=== PATIENT | male | born 1960 | race Caucasian/White ===

== ENCOUNTER → 2018-07-14 09:30 | Outpatient (CLI) | payer MEDICARE, SELFPAY | PROVIDERS: PCP Family Medicine; Visit Provider Nurse Practitioner Gerontology | DX: R33.9 Retention of urine, unspecified (principal); R35.0 Frequency of micturition | CPT/HCPCS: 51702; 99214 ==

== ENCOUNTER → 2018-07-14 17:08 | Outpatient (REF) | payer MEDICARE, SELFPAY | LOC: LBN 17:08 | PROVIDERS: PCP Family Medicine; Visit Provider Nurse Practitioner Gerontology | DX: R35.0 Frequency of micturition (principal) | CPT/HCPCS: 87086 ==

== ENCOUNTER → 2018-07-17 08:30 | Outpatient (CLI) | payer MEDICARE, SELFPAY | PROVIDERS: PCP Family Medicine; Visit Provider Nurse Practitioner Gerontology | DX: N40.1 Benign prostatic hyperplasia with lower urinary tract symptoms (principal); R33.8 Other retention of urine | CPT/HCPCS: 99213 ==

== ENCOUNTER → 2018-07-18 15:00 | Outpatient (CLI) | payer MEDICARE, SELFPAY | PROVIDERS: PCP Family Medicine; Visit Provider Urology | DX: R33.8 Other retention of urine (principal); R31.9 Hematuria, unspecified | CPT/HCPCS: 99211 ==

== ENCOUNTER → 2018-07-22 14:00 | Outpatient (CLI) | payer MEDICARE, SELFPAY | PROVIDERS: PCP Family Medicine; Visit Provider Nurse Practitioner Gerontology | DX: N40.0 Benign prostatic hyperplasia without lower urinary tract symptoms (principal) | CPT/HCPCS: 99214 ==

== ENCOUNTER 2018-08-06 11:10 | Outpatient (CLI) | payer MEDICARE, SELFPAY ==
[2018-08-07 10:20] LABS: PSA, Screening 333.9 ng/ml (0-3.5)
== END 2018-08-06 11:30 ==
PROVIDERS: PCP Family Medicine; Visit Provider Nurse Practitioner Gerontology
DX: I10 Essential (primary) hypertension (principal); Z12.5 Encounter for screening for malignant neoplasm of prostate; R31.9 Hematuria, unspecified
CPT/HCPCS: 84153

== ENCOUNTER → 2018-08-12 12:53 | Outpatient (BNVA) | payer MEDICARE, SELFPAY | PROVIDERS: PCP Family Medicine; Visit Provider Nurse Practitioner Gerontology | DX: R97.20 Elevated prostate specific antigen [PSA] (principal); R33.9 Retention of urine, unspecified | CPT/HCPCS: 81003; 99215 ==

== ENCOUNTER 2018-08-26 00:53 | Outpatient (CLI) | payer MEDICARE, SELFPAY ==
--- NOTE | 2018-08-26 06:53 | DI.US_ITS ---
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 Alvarez during the performance of a transrectal ultrasound-guided prostate biopsy. Please refer to the procedure report for complete details.
--- NOTE | 2018-08-26 10:30 | PROST_PTH ---
PATIENT: Hernandez Chris LOC: [facility] U#:[id number] AGE/SX: 58/M ROOM: RE08/26/[address]: Jr Alvarez MD : 1960 BED: DIS: 08/26/2018 SPEC #: [id number] RECD: 08/26/18 13:03 STATUS: VENECIA RE #: [id number] SYED: 08/26/18 10:[address]: Jr Alvarez DEPT: Surgical Specimen RECD BY: Selena Velazquez ENTERED: 08/26/18 13:04 SP TYPE: PROST OTHR DR: Manny Jack Tissues: 1 - PROSTATE NEEDLE BIOPSY 2 - PROSTATE NEEDLE BIOPSY 3 - PROSTATE NEEDLE BIOPSY 4 - PROSTATE NEEDLE BIOPSY 5 - PROSTATE NEEDLE BIOPSY 6 - PROSTATE NEEDLE BIOPSY 7 - PROSTATE NEEDLE BIOPSY 8 - PROSTATE NEEDLE BIOPSY 9 - PROSTATE NEEDLE BIOPSY 10 - PROSTATE NEEDLE BIOPSY 11 - PROSTATE NEEDLE BIOPSY 12 - PROSTATE NEEDLE BIOPSY Procedures: GROSS AND MICRO LEVEL 4 Comments: [id number]
--- NOTE | 2018-08-26 11:35 | ROE_ITS ---
DATE OF PROCEDURE: August 26, 2018 PRE-PROCEDURE DIAGNOSIS: Elevated PSA. POST-PROCEDURE DIAGNOSIS: Same with pathology pending. PROCEDURE: Transrectal ultrasound of the prostate with ultrasound-guided biopsies. SURGEON: Jr Alvarez M.D. ANESTHESIA: Local. COMPLICATIONS: None. ESTIMATED BLOOD LOSS: Minimal. HISTORY: This is a 58-year-old gentleman who has been identified as having a markedly elevated PSA o f over 300 ng/mL. In addition, he has firm area in the prostate. He presents for ultrasound-guided biopsy. PROCEDURE: The patient was given a pre-procedure mechanical and antibiotic bowel prep. He was then brought to the radiology suite on 08/26/18. He was placed in the lateral position. Transrectal imaging of the prostate was performed. His prost ate volume was calculated at 47 cc's. There was no specific hypoechoic area identified in the peripheral zone, however there was loss of ar chitecture between the peripheral and transition zone, especially toward the left apex. Multiple enmanuel cifications were seen scattered throughout the transition zone. A periprostatic nerve block was performed using 1% Xylocaine. A total of twelve laterally-directed b iopsies were taken and each was sent to pathology for permanent section. He tolerated the procedure well with no complications.
== END 2018-08-26 01:13 ==
PROVIDERS: PCP Family Medicine; Visit Provider Urology
DX: C61 Malignant neoplasm of prostate (principal); R97.20 Elevated prostate specific antigen [PSA]
CPT/HCPCS: 55700; 76942; 88305

== ENCOUNTER → 2018-08-26 11:25 | Outpatient (BNVA) | payer MEDICARE, SELFPAY | PROVIDERS: PCP Family Medicine; Visit Provider Urology | DX: R69 Illness, unspecified (principal) ==

== ENCOUNTER → 2018-09-08 14:52 | Outpatient (BNVA) | payer MEDICARE, SELFPAY | PROVIDERS: PCP Family Medicine; Visit Provider Urology | DX: C61 Malignant neoplasm of prostate (principal) | CPT/HCPCS: 99214 ==

== ENCOUNTER 2018-09-16 01:20 | Outpatient (CLI) | payer MEDICARE, SELFPAY ==
--- NOTE | 2018-09-16 08:57 | DI.CT_ITS ---
SYMPTOM/DIAGNOSIS: PROSTATE CA, ? METS ABDOMEN AND PELVIC CT: The study was carried out according to the usual protocol with an intravenous administration of 87 cc's of Omnipaque 350 and oral ingestion of dilute barium. The lower thorax appears unremarkable. The liver, gallbladder, pancreas and spleen are unremarkable. A bilateral extrarenal pelvis is demonstrated. A solitary non obstructing calculus is noted in the right kidney. There is moderate left hydronephrosis and hydroureter down to the level of the bladder. There is no evidence of right hydronephrosis and the right ureter appears intact. Small bilateral adrenal masses likely represent adenomata. The prostate is grossly enlarged and is nodular and bladder wall thickening is noted inferiorly raising the possibility of tumor extension into the posterior inferior bladder wall. There is no definite evidence of pelvic, intra- abdominal or retroperitoneal adenopathy. There is no evidence of bowel obstruction. The appendix is normal. There is no evidence of localized bowel wall thickening. There is no evidence of free air or free fluid in the intraperitoneal space. Degenerative changes are noted throughout the lower dorsal and lumbosacral spine. There is nothing to suggest bony metastasis. There are atherosclerotic changes involving the aorta without evidence of an aneurysm. SUMMARY: Non obstruction right nephrolithiasis is demonstrated. There is a bilateral extrarenal pelvis and moderate left hydronephrosis and left hydroureter is demonstrated down to the level of the bladder. There is no evidence of left nephro or ureterolithiasis. The prostate is enlarged and is nodular and there is thickening and nodularity involving the bladder floor raising the possibility of tumor involvement. There is no evidence of lymphadenopathy. Incidental note is made of small bilateral adrenal masses consistent with adenomata. The findings today to be correlated with cystoscopy.
--- NOTE | 2018-09-16 08:57 | DI.NM_ITS ---
SYMPTOMS/DIAGNOSIS: PROSTATE CA, ? METS BONE SCAN: Intravenous administration of 24.6 millicuries of Technetium 99 MDP was utilized for this examination. Small faint regions of increased photon density involving the lower dorsal and lumbar spine would be consistent with degenerative changes noted on the patient's recent CT examination. A very small focal area of mildly increased photon density involving the posterior portion of the right sixth rib is demonstrated and may be on the basis of old trauma. There is symmetrical activity over the renal beds. The radiopharmaceutical is noted in a dilated bladder and the patient was unable to void at the time of the examination. SUMMARY: No definite evidence of bony metastases. Note is made of bladder outlet obstruction. Please see the above report.
[2018-09-16 09:48] LABS: CREATININE 1.13 mg/dL (0.70-1.30)
[2018-09-16] MEDS: Breeza Beverage 473 ML BTL PO ×2 (10:09→10:10)
[2018-09-16] MEDS: Omnipaque 350 MG/ML 50 ML BTL IJ (10:10)
[2018-09-16] MEDS: Omnipaque 350 MG/ML 100 ML BTL IJ (10:58)
== END 2018-09-16 01:40 ==
PROVIDERS: PCP Family Medicine; Visit Provider Urology
DX: C61 Malignant neoplasm of prostate (principal); N20.0 Calculus of kidney; N13.30 Unspecified hydronephrosis; E27.9 Disorder of adrenal gland, unspecified
CPT/HCPCS: 36415; 78306; 99215; 74177; 82565; J3490; Q9967

== ENCOUNTER 2018-12-02 00:56 | Emergency (ER) | payer OTHER, SELFPAY ==
--- NOTE | 2018-12-02 00:05 | DI.CT_ITS ---
SYMPTOM/DIAGNOSIS: RT SIDED WEAKNESS NONCONTRAST HEAD CT: Comparison is made with 04/05/14. Left basal ganglia and left guillen radiata lacunar infarcts are again identified. No acute infarct, hemorrhage or mass is seen. The ventricles are normal in size. There is no evidence of skull fracture or sinus opacification. Mild to moderate atrophy is again noted. IMPRESSION: Old left lacunar infarcts. No acute abnormality.
[2018-12-02 00:56] VITALS: BP 168/89; PULSE 95; RESP 18; TEMP 36.9; O2SAT 98
--- NOTE | 2018-12-02 00:57 | ED.GENADUL_ITS ---
Discharge Plan Disposition Patient Disposition: HOME Condition: Stable Discharge Details Chief Complaint: CVA/TIA Clinical Impression: Spasticity Reason For Visit: MICHAEL Primary Care Provider: Manny Jack ED Provider: Ramos Schafer Home Meds and New Rx's Prescriptions: Continued levofloxacin [Levaquin] 500 mg tablet 500 mg PO DAILY Qty: 3 RF: 0 finasteride 5 mg tablet 5 mg PO DAILY Qty: 30 RF: 3 miscellaneous medical supply [Tablet Cutter] 1 EACH misc 1 ea Miscellaneous DAILY Qty: 1 RF: 0 atorvastatin 10 MG tablet 10 mg PO DAILY RF: 0 baclofen 10 MG tablet 10 mg PO TID RF: 0 lisinopril 40 MG tablet 40 mg PO DAILY RF: 0 tamsulosin 0.4 MG capsule 0.4 mg PO DAILY Qty: 90 RF: 3 amlodipine 10 MG tablet 10 mg PO DAILY RF: 0 clopidogrel [Plavix] 75 MG tablet 75 mg PO DAILY Qty: 90 RF: 0 Discharge Instructions Additional Instructions: Take your medications as prescribed. That will prevent you from having the spasticity that you experienced tonight It is also important that you eat and drink, it is not true that you can starve your cancer and not eating will only harm you follow up with your primary care provider within a week If you have new weakness or new symptoms such as vision changes, chest pain or difficulty breathing return to the emergency department Referrals: [facility] [Provider Group] Medical Decision Making 58 yo male who had a prior cva 5 years ago and has had recovery per him with no residual deficits who comes in with chief complaint of not being able to walk since 4pm yesterday due to right leg weakness. He denies chest pain, headache, fevers, chills. He is noted to have right leg drift on exam that hits the bed (2 for NIH), and decreased sensation of the right leg (1) for a total NIH of 3. Suspect acute cva but is outside the time period for lytics at this time. Will obtain CT and cta and lab work and monitor after reviewing the chart from recent provider's it seems as though the patient has had weakness in the right leg since his initial cva. I spoke with his brother while the pt is in radiology and states that the patient normally is dragging his leg but had some pain in his groin that caused him to go slower ton ight, no significant change from his baseline. The pt was recently dx'd with chemotherpay and the brother states the pt is researching things on line and hasn't been eating much because he feels he can starve the cancer and be cured of it. Will discuss this further with the pt when he returns from CT Pt's ct showed no acute findings. CTA was cancelled due to inability to get an IV and after I had a lengthy discussion with the pt. He now states he is having pain in his right upper leg that he gets when he has spasticity and denies any new weakness and normally has to drag his leg when walking slightly which when I ambulate him now he walks with a mild drag of the right leg. He states this is his baseline but he is having pain in the right upper thigh, no rashes and no falls, does feel to have muscle spasm on exam. He states he hasn't been taking his meds including baclofen for over a week because he read online that meds can cause cancer and he hasn't been eating much. I had lengthy discussion about how he needs to take his meds as prescribed and eat normally as this won't affect his cancer. He agrees he is currently at his baseline and that he never had any changes in his chronic right leg weakness and gait. I am going to order him his blood pressure med and baclofen that he is supposed to take to prevent spasticity. He will f/u with his pcp and return if he has any new meds. Him and his brother state that he is at his baseline in terms of weakness and the only thing that is different is the spasticity he is experiencing in the leg. Differential Diagnosis cva, tia, electrolyte abnormality Imaging Data Radiologic Study: Attestation: I personally reviewed and interpreted this imaging study as follows: Imaging: CT Scan Radiologist's impression: No evidence for acute transcortical infarct, acute intracranial hemorrhage, or mass effect. [place] Stroke Program Early CT Score (ASPECTS) = 10 HPI General Mode of arrival: EMS . Date/Time Provider Initiated Documentation: 12/02/18 00:58 . Limitations to Documentation: no limitations . Information obtained by: patient . History of Present Illness 58 year old M presents to the emergency department with the chief complaint of right leg weakness, and is localized to the right and lower extremity. Patient reports no radiation. Patient started experiencing this hour(s) (6) and it has been constant. No relieving factors improve symptom(s), No exacerbating factors reported . Patient notes no other symptoms.. Patient did receive the following treatments prior to arrival, none Related Data Home Medications Medication Instructions Recorded Confirmed amlodipine 10 mg PO DAILY 04/05/14 08/12/18 clopidogrel [Plavix] 75 mg PO DAILY #90 tab 04/12/14 08/12/18 miscellaneous medical supply #1 ea 02/22/15 [Tablet Cutter] atorvastatin 10 mg PO DAILY tab-cap 12/31/16 08/12/18 baclofen 10 mg PO TID tab-cap 02/07/18 08/12/18 lisinopril 40 mg PO DAILY tab-cap 02/07/18 08/12/18 tamsulosin 0.4 mg PO DAILY #90 tab-cap 07/17/18 levofloxacin 500 mg tablet 500 mg PO DAILY #3 tab 08/12/18 08/12/18 finasteride 5 mg tablet 5 mg PO DAILY #30 tab 09/16/18 09/16/18 Previous Rx's Medication Instructions Recorded clopidogrel [Plavix] 75 mg PO DAILY #90 tab 04/12/14 tamsulosin 0.4 mg PO DAILY #90 tab-cap 07/17/18 levofloxacin 500 mg tablet 500 mg PO DAILY #3 tab 08/12/18 finasteride 5 mg tablet 5 mg PO DAILY #30 tab 09/16/18 Allergies Allergy/AdvReac Type Severity Reaction Status Date / Time latex Allergy Itching Verified 08/12/18 13:04 Penicillins Allergy Verified 08/12/18 13:04 venlafaxine HCl Allergy Verified 08/12/18 13:04 [From Effexor] Review of Systems Review of Systems All systems reviewed & are unremarkable except as noted in HPI and below Constitutional Denies chills and Denies fever(s) ENT Denies change in voice Cardiovascular Denies chest pain and Denies dyspnea Respiratory Denies dyspnea Gastrointestinal Denies abdominal pain, Denies nausea and Denies vomiting Genitourinary Denies dysuria Psychiatric Denies depression Endocrine Denies heat intolerance [facility] Surgical History Colonoscopy - IV Sedation (10/07/15) Social History Smoking/Tobacco Use Status: Never Exam Const General: no acute distress Orientation: alert HENMT Head: normal to inspection Ears: external ears normal General nose exam: external nose normal Mouth: moist mucous membranes Eyes General: appearance normal, both eyes and all related structures Neck Neck: normal visual inspection Resp Effort & Inspection: normal respiratory effort and able to speak in complete sentences Cardio Rate: regular rate Skin General skin exam: no rashes or lesions noted Neuro General: alert and oriented x3 Extrem General: normal to inspection Psych Mental Status: mental status grossly normal
--- NOTE | 2018-12-02 01:17 | DI.VRAD_ITS ---
EXAM: CT Head Without Contrast EXAM DATE/TIME: 12/02/2018 12:48 AM CLINICAL HISTORY: 58 years old, male; Signs and symptoms; Walking, difficulty and weakness, extremity; Right; Patient HX: Right sided weakness, prior stroke left side 2013 TECHNIQUE: Axial computed tomography images of the head/brain without contrast. All CT scans at this facility use at least one of these dose optimization techniques: automated exposure control; mA and/or kV adjustment per patient size (includes targeted exams where dose is matched to clinical indication); or iterative reconstruction. Coronal and sagittal reformatted images were created and reviewed. STROKE PROTOCOL was implemented. COMPARISON: CT HEAD WITHOUT CONTRAST 04/05/2014 9:35 AM FINDINGS: Brain: No evidence for acute transcortical infarct. Chronic lacunar infarcts involving the right thalamus and left guillen radiata. No mass effect or midline shift. No extra-axial collection. No acute intracranial hemorrhage. Basal cisterns are patent. Ventricles: Cavum septum pellucidum and vergae. Bones/joints: Normal. No acute fracture. Sinuses: Normal as visualized. No acute sinusitis. Mastoid air cells: Tympanomastoid cavities are clear. Soft tissues: Normal. IMPRESSION: No evidence for acute transcortical infarct, acute intracranial hemorrhage, or mass effect. [place] Stroke Program Early CT Score (ASPECTS) = 10 Dictated and Authenticated by: Fred Auguste MD. Ordering:GERMANIA Beasley MD
[2018-12-02] MEDS: Lisinopril 20 MG TAB 40 MG PO (01:36)
[2018-12-02] MEDS: Baclofen 10 MG TAB PO (01:36)
--- NOTE | 2018-12-08 11:04 | PDOC.ERCMPRO ---
Care Management Progress Note 12/08-Dr. Schafer requested PCP (Marcie) f/u within one week to discuss medications. [facility] faxed back that patient has an appt on 12/08 at 2PM.
== END 2018-12-02 01:56 | disposition home or self-care (01) ==
LOC: ER 02:03
PROVIDERS: Emergency Provider Emergency Medicine; PCP Family Medicine
DX: R25.2 Cramp and spasm (principal); Z86.73 Personal history of transient ischemic attack (TIA), and cerebral infarction without residual deficits; I10 Essential (primary) hypertension
CPT/HCPCS: 80053; 99284; 70450; 83735; 84484; 85025; 85610; 85730

== ENCOUNTER 2019-05-15 11:25 | Outpatient (REF) | payer OTHER, SELFPAY ==
[2019-05-15 20:05] LABS: ALT 33 U/L (12-78); AST 22 U/L (15-37); Albumin 4.2 g/dL (3.4-5.0); Alkaline Phosphatase 171 U/L (46-116); Anion Gap 10.4 mmol/L (3-11); BUN 15 mg/dL (7-18); Bilirubin, Total 0.9 mg/dL (0.2-1.0); CO2 26.6 mmol/L (21.0-32.0); Calcium 9.4 mg/dL (8.5-10.1); Calculated LDL 87; Chloride 106 mmol/L (98-107); Cholesterol 160 mg/dL (50-200); Glucose 120 mg/dL (70-100); HDL Cholesterol 41 mg/dL (40-60); Sodium 143 mmol/L (136-145); Triglyceride 164 mg/dL (30-150)
== END 2019-05-15 11:45 ==
LOC: NCHCN 11:25
PROVIDERS: PCP Family Medicine; Visit Provider Family Medicine
DX: I10 Essential (primary) hypertension (principal); I63.9 Cerebral infarction, unspecified
CPT/HCPCS: 80053; 80061; 83721

== ENCOUNTER 2019-09-07 11:38 | Outpatient (CLI) | payer OTHER, SELFPAY ==
[2019-09-07 12:29] LABS: HCT 39.1 % (40.0-50.0); HGB 13.8 g/dL (13.5-17.5); Mean Corp. HGB Concentration 35.3 g/dL (32.0-36.0); Mean Corpuscular Hemoglobin 31.7 pg (27.0-33.0); Mean Corpuscular Volume 89.7 fL (80-95); Mean Platelet Volume 10.1 fL (8.0-11.0); Platelet Count 162 x1000/uL (130-400); RBC 4.36 m/cumm (4.50-6.00); RBC Distribution Width 12.7 % (11.8-14.1); White Blood Cell Count 3.04 k/cumm (4.4-10.8)
[2019-09-07 13:48] LABS: ALT 22 U/L (16-63); AST 18 U/L (15-37); Albumin 4.4 g/dL (3.4-5.0); Alkaline Phosphatase 143 U/L (46-116); Anion Gap 9.8 mmol/L (3-11); BUN 15 mg/dL (7-18); CO2 28.2 mmol/L (21.0-32.0); CREATININE 1.05 mg/dL (0.70-1.30); Calcium 9.4 mg/dL (8.5-10.1); Chloride 104 mmol/L (98-107); Glucose 128 mg/dL (70-100); Sodium 142 mmol/L (136-145); Total Protein 7.4 g/dL (6.4-8.2)
[2019-09-08 09:54] LABS: PSA, Diagnostic 0.1 ng/ml (0-3.5)
[2019-09-08 10:30] LABS: Hepatitis C Ab w Rflx HCV PCR Negative (NEGAT)
== END 2019-09-07 11:58 ==
PROVIDERS: PCP Family Medicine; Visit Provider Family Medicine
DX: R53.83 Other fatigue (principal); C61 Malignant neoplasm of prostate; Z11.59 Encounter for screening for other viral diseases
CPT/HCPCS: 36415; 80053; 85027; 86803; 84153

== ENCOUNTER 2019-10-08 02:10 | Outpatient (CLI) | payer OTHER, SELFPAY ==
[2019-10-08] MEDS: Gadoterate meglumine 20 ML VIAL 12 ML IVP (09:50)
--- NOTE | 2019-10-08 10:05 | DI.MRI_ITS ---
EXAM: MR BRAIN WO/W CLINICAL HISTORY: HEADACHE.LT SIDED PRESSURE, H/O PROSTATE CA TECHNIQUE: Multiplanar multisequence MRI was performed according to the usual protocol. COMPARISON: No exams were available for comparison FINDINGS: There is mild generalized cerebral atrophy. There is apparent focal cortical encephalomalacia in the left parietal region. There are apparent tiny old bilateral cerebellar hemisphere infarcts and ther e is a presumed old left basal ganglia/guillen radiata focus of infarction which is thin and elongated . No evidence of enhancement. Diffusion-weighted imaging is within normal limits with no evidence o f acute or subacute infarction. Susceptibility weighted imaging shows no evidence of hemorrhage. No mass lesion seen. The orbital and temporal bone structures appear intact as does the pituitary. The re is normal flow void in the [place] vasculature. IMPRESSION: No evidence of acute process. Tiny old bilateral cerebellar hemisphere infarcts and tiny old left basal ganglia/guillen radiata infa rcts.
== END 2019-10-08 02:30 ==
PROVIDERS: PCP Family Medicine; Visit Provider Family Medicine
DX: R51 Headache (principal); Z85.46 Personal history of malignant neoplasm of prostate; G31.89 Other specified degenerative diseases of nervous system; G93.89 Other specified disorders of brain; I63.9 Cerebral infarction, unspecified
CPT/HCPCS: 70553

== ENCOUNTER 2020-06-11 13:37 | Emergency (ER) | payer OTHER, SELFPAY ==
[2020-06-11] VITALS (23 sets, daily range): BP systolic 127–149; BP diastolic 67–88; PULSE 56–88; RESP 13–23; TEMP 36.5; O2SAT 94–100
--- NOTE | 2020-06-11 13:45 | RT.EKG_ITS ---
APPROVED REPORT Exam: Resting ECG Patient Location: E HR:70 bpm ECG Measurements Heart Rate 70 AXIS IN 146 P 44 QRSd 88 QRS -10 QT 411 T 25 QTc 444 <Conclusion> Sinus arrhythmia...V-rate 59- 80, variation>10% EKG 13: 55 Sinus rhythm, rate 70, intervals normal, no evidence of STEMI, or other abnormalities
--- NOTE | 2020-06-11 14:00 | DI.CT_ITS ---
EXAM: CT HEAD WO CLINICAL HISTORY: weakness, fatigue, hx of stroke. TECHNIQUE: Imaging Protocol: Axial computed tomography images with coronal and sagittal reformatted images were created and reviewed COMPARISON: CT CT HEAD FOR STROKE PROTOCOL from 12/02/2018 FINDINGS: Ventricles and Extra axial spaces: There is again seen mild prominence of the ventricles and sulci co nsistent with cerebral atrophy. Hemorrhage: None. Cerebral parenchyma: No acute territorial infarct. Areas of decreased attenuation are seen in the wh ite matter most consistent with microvascular ischemic disease. An old left basal gangliar infarct i s again noted. Note is made of a cavum septum pellucidum. Midline shift: None. Brainstem/Cerebellum: Normal. Calvarium: Normal. Visualized Paranasal sinuses/Mastoids: Clear. Soft Tissues: Unremarkable. IMPRESSION: No acute intracranial process. RADIATION DOSE DELIVERED: Total DLP DATA REPOSITORY: All CT scans at this facility are submitted to the National Radiology Data Registry (NRDR) Dose Index Registry (DIR) with the [employer] (A[employer]). RADIATION OPTIMIZATION: All CT scans at this facility use at least one of these dose optimization te chniques: automated exposure control; mA and/or kV adjustment per patient size (includes targeted exa ms where dose is matched to clinical indication); or iterative reconstruction.
--- NOTE | 2020-06-11 14:01 | DI.RAD_ITS ---
EXAM: XR CHEST 2V PA LATERAL CLINICAL HISTORY: fatigue, SOB TECHNIQUE: 2D digital imaging was performed. COMPARISON: No exams were available for comparison FINDINGS: MEDIASTINUM: Normal. HEART: Normal. PULMONARY VASCULATURE: Normal. LUNGS: Clear. PLEURAL SPACE: No pleural effusion or pneumothorax. BONE:Degenerative changes are seen in the spine. OTHER FINDINGS:Normal. IMPRESSION: No acute pulmonary findings. DATA REPOSITORY: RADIATION DOSE DELIVERED:
--- NOTE | 2020-06-11 14:03 | ED.GENADUL_ITS ---
Discharge Plan Disposition Patient Disposition: HOME Condition: Good Discharge Details Chief Complaint: GenMedical Clinical Impression: Dehydration, Weakness Primary Care Provider: Manny Jack ED Provider: Dani Casillas Home Meds and New Rx's Prescriptions: Continued (DME) miscellaneous medical supply [Tablet Cutter] 1 EACH misc 1 ea Miscellaneous DAILY Qty: 1 RF: 0 atorvastatin 10 MG tablet 10 mg PO DAILY RF: 0 baclofen 10 MG tablet 10 mg PO TID RF: 0 lisinopril 40 MG tablet 40 mg PO DAILY RF: 0 tamsulosin 0.4 MG capsule 0.4 mg PO DAILY Qty: 90 RF: 3 amlodipine 10 MG tablet 10 mg PO DAILY RF: 0 clopidogrel [Plavix] 75 MG tablet 75 mg PO DAILY Qty: 90 RF: 0 prednisone 5 mg tablet 5 mg PO DAILY RF: 0 abiraterone 250 mg tablet 1,000 mg PO DAILY RF: 0 cyanocobalamin (vitamin B-12) [Vitamin B-12] 1,000 mcg Tablet 1,000 mcg PO DAILY RF: 0 ascorbic acid (vitamin C) [Vitamin C] 500 mg Tablet 500 mg PO DAILY RF: 0 cholecalciferol (vitamin D3) [Vitamin D3] 25 mcg (1,000 unit) Tablet,Chewable 25 mcg PO DAILY RF: 0 Discharge Instructions Instructions: Dehydration (ED), Weakness (ED) Additional Instructions: At this time your work-up shows no signs of concerning life-threatening abnormality. I do feel that there is notable dehydration that is contributing to your symptoms. Please make sure to drink 8 to 10 cups of water every day. Please follow-up closely with your oncologist and discuss resuming or stopping her medications. As always do your best to eat healthy and exercise as tolerable. If you notice any worsening of your symptoms, or any new symptoms such as vomiting, diarrhea, fever, chills, shortness of breath, chest pain, numbness, weakness, or fainting , please return immediately to the emergency department for reevaluation. Please follow up with your primary care provider as soon as possible for reassessment and reevaluation. As always, it was a pleasure participating in your medical care today. 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 Patient states that for the last few days he has felt notably weak, he has had some shaking in his hands bilaterally. He denies any recent falls or traumas. He denies any fever, chills, cough, shortness of breath, chest pain, vomiting, diarrhea, hematochezia melena or acholic stool. Of note as of late he states that he has been stopping some of his medication secondary to videos he states that he has been watching on YouTube that have caused some concern as to what he has been taking. He states though that he is still taking his Plavix, but did recently stop taking his atorvastatin and stopped taking his calcium supplements a few months ago. Patient has no other complaints at this time. He denies any urinary complaints. No other modifying factors. Physical exam is notably unremarkable. He does have dry mucous membranes, the patient's neurologic exam seems to be at his baseline though with no acute focal neurologic deficits. No abnormal lung sounds or other abnormalities on exam. Differential includes dehydration, potential UTI, her less likely cardiac etiology. Will perform broad work-up to evaluate for potential etiologies in this high risk cancer patient. 6 PM Patient's laboratory work-up is returned notably unremarkable, d-dimer and troponin are normal. No white count bandemia or anemia. Electrolytes normal. Patient does have an elevated BUN of 23 which is greater than a 2-1 ratio for BUN/creatinine. TSH normal. Urinalysis does show some urine ketones. Signs and symptoms appear clinically consistent with mild dehydration. Chest x-ray negative for acute process, CT scan of the head negative for acute process. After rehydration with 1 L of normal saline patient is feeling much better. I did have a long discussion with him regarding importance of keeping well- hydrated. Also of note the patient did bring up some concerns he had with his medications in general, asking whether or not he should stop or start his of the various medications. He also had multiple very reasonable questions about diet in regards to management of his medical problems as an alternative to medications. We did have a long discussion about all this, but I also did encourage him to seek out his PCP, and his oncologist to discuss the potential needs or options for his regular home medications. I have extensively reviewed the treatment plan and discharge instructions with the patient and their family. I have addressed all patient concerns at this time. The patient and family was made aware of what symptoms to monitor for that would warrant a return to the emergency department. Discussed the plan with the patient and family, they demonstrate verbal understanding and agreement with our assessment and plan at this time. EKG 13: 55 Sinus rhythm, rate 70, intervals normal, no evidence of STEMI, or other abnormalities FINDINGS: Brain: There is no acute intracranial hemorrhage, mass effect or midline shift. No large acute territorial infarct identified. There are patchy regions of hypodensity in the periventricular and subcortical white matter, likely on the basis of chronic microvascular ischemic disease. A small remote left basal ganglia infarct is stable in appearance. Ventricles: The ventricles and sulci are prominent in size, which is likely related to global cerebral volume loss. There is a cavum septum pellucidum. Bones/joints: Unremarkable. No acute fracture. Sinuses: Visualized sinuses are unremarkable. No fluid levels. Mastoid air cells: Visualized mastoid air cells are well aerated. Soft tissues: Soft tissue in the right external auditory canal again noted, likely cerumen. IMPRESSION: No acute intracranial hemorrhage, mass effect or midline shift. FINDINGS: Lungs: No consolidation. Pleural space: Unremarkable. No pleural effusion. No pneumothorax. Heart/Mediastinum: Unremarkable. No cardiomegaly. Bones/joints: Unremarkable. IMPRESSION: No acute findings. Of note, mild viral pneumonia cannot be excluded and laboratory testing may be performed if clinically indicated. Thank you for allowing us to participate in the care of your patient. Dictated and Authenticated by: Lisa Suarez MD [facility] General Date/Time Provider Initiated Documentation: 06/11/20 13:48 . 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 Patient states that for the last few days he has felt notably weak, he has had some shaking in his hands bilaterally. He denies any recent falls or traumas. He denies any fever, chills, cough, shortness of breath, chest pain, vomiting, diarrhea, hematochezia melena or acholic stool. Of note as of late he states that he has been stopping some of his medication secondary to videos he states that he has been watching on YouTube that have caused some concern as to what he has been taking. He states though that he is still taking his Plavix, but did recently stop taking his atorvastatin and stopped taking his calcium supplements a few months ago. Patient has no other complaints at this time. He denies any urinary complaints. No other modifying factors. Related Data Home Medications Medication Instructions Recorded Confirmed amlodipine 10 mg PO DAILY 04/05/14 06/11/20 clopidogrel [Plavix] 75 mg PO DAILY #90 tab 04/12/14 06/11/20 miscellaneous medical supply #1 ea 02/22/15 [Tablet Cutter] atorvastatin 10 mg PO DAILY tab-cap 12/31/16 08/12/18 baclofen 10 mg PO TID tab-cap 02/07/18 06/11/20 lisinopril 40 mg PO DAILY tab-cap 02/07/18 06/11/20 tamsulosin 0.4 mg PO DAILY #90 tab-cap 07/17/18 06/11/20 abiraterone 1,000 mg PO DAILY 06/11/20 06/11/20 ascorbic acid (vitamin C) [Vitamin 500 mg PO DAILY 06/11/20 06/11/20 C] cholecalciferol (vitamin D3) 25 mcg PO DAILY 06/11/20 06/11/20 [Vitamin D3] cyanocobalamin (vitamin B-12) 1,000 mcg PO DAILY 06/11/20 06/11/20 [Vitamin B-12] prednisone 5 mg PO DAILY 06/11/20 06/11/20 Previous Rx's Medication Instructions Recorded clopidogrel [Plavix] 75 mg PO DAILY #90 tab 04/12/14 tamsulosin 0.4 mg PO DAILY #90 tab-cap 07/17/18 Allergies Allergy/AdvReac Type Severity Reaction Status Date / Time latex Allergy Itching Verified 06/11/20 13:58 Penicillins Allergy Verified 06/11/20 13:58 venlafaxine HCl Allergy Verified 06/11/20 13:58 [From Effexor] General Stated Complaint: GenMedical PAU: 3 Review of Systems All systems reviewed & are unremarkable except as noted in HPI and below PFSH Surgical History Colonoscopy - IV Sedation (10/07/15) DR.TERRY BURGOS Social History Smoking/Tobacco Use Status: Never Alcohol Intake: never Drug use: Never Do you feel safe at home: Yes Do you feel safe in your relationship?: Yes Exam Narrative Exam Narrative: 1.Const: Well-nourished, Well-developed, appearing stated age 2.Eyes: PERRL, no conjunctival injection, and symmetrical lids. 3.ENT: Atraumatic external nose and ears. Notably dry MM. Neck: Symmetric, trachea midline, No thyromegaly. 4.CVS: +S1/S2, No murmurs or gallops. Peripheral pulses 2+ and equal in all extremities. Brisk capillary refill in all extremities. 5.RESP: Unlabored respiratory effort. Clear to auscultation bilaterally. No wheezes rales or rhonchi 6.GI: Soft, Nontender/Nondistended, No hepatosplenomegaly. No guarding or rebound. 7.MSK: Normocephalic/Atraumatic, Extremities w/o deformity or ttp No cyanosis or clubbing, Normal movement of all extremities 8.Skin: Warm, Dry. No rashes or lesions. 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 Sensation grossly intact. No dysdiadochokinesia or dysmetria. The patient's right upper and right lower extremity are somewhat weaker compared to the left however the patient states that this is his normal baseline after stroke. 10.Psych: (AAO) x3. Appropriate mood and affect Course Vital Signs Vital signs: Vital Signs Temperature 36.5 C 06/11/20 13:51 Pulse 88 06/11/20 13:51 Respiratory Rate 06/11/20 13:51 Blood Pressure 145/85 H 06/11/20 13:51 Pulse Oximetry 94 L 06/11/20 13:51 Temperature 36.5 C 06/11/20 13:51 Temperature Source Temporal Artery Scan 06/11/20 13:51 Pulse 88 06/11/20 13:51 Respiratory Rate 06/11/20 13:51 Respiratory Effort Non-Labored 06/11/20 13:56 Blood Pressure 145/85 H 06/11/20 13:51 Blood Pressure Position Sitting 06/11/20 13:51 Pulse Oximetry 94 L 06/11/20 13:51 Oxygen Delivery Method Room Air 06/11/20 13:51 Oxygen Flow Rate 0 06/11/20 13:51 Pain Level 0 06/11/20 13:51
[2020-06-11 14:49] LABS: Bilirubin Negative (Negative); Blood Negative (Negative); Clarity Clear (Clear); Glucose Negative (Negative); Ketones 15 mg/dL (Negative); Leukocyte Esterase Negative (Negative); Nitrite Negative (Negative); Urobilinogen 0.2 EU/dL (Up TO 0.2); pH 5.5 (5-8)
[2020-06-11 14:55] LABS: Abs Immature Grans 0.01 k/cumm (0.0-0.09); Absolute Basophil Count 0.01 k/cumm (0.0-0.2); Absolute Eosinophil Count 0.04 k/cumm (0.0-0.7); Absolute Lymphocyte Count 0.66 k/cumm (1.2-3.4); Absolute Monocyte Count 0.23 k/cumm (0.11-0.7); Absolute Neutrophil Count 3.63 k/cumm (1.2-6.7); Basophils % 0.2; Eosinophils % 0.9; HCT 41.1 % (40.0-50.0); HGB 14.7 g/dL (13.5-17.5); Immature Grans % 0.2 %; Lymphocytes % 14.4; Mean Corp. HGB Concentration 35.8 g/dL (32.0-36.0); Mean Corpuscular Hemoglobin 30.8 pg (27.0-33.0); Mean Platelet Volume 10.2 fL (8.0-11.0); Neutrophils % 79.3; Platelet Count 174 x1000/uL (130-400); RBC 4.78 m/cumm (4.50-6.00); RBC Distribution Width 12.9 % (11.8-14.1); White Blood Cell Count 4.58 k/cumm (4.4-10.8)
[2020-06-11] MEDS: Normal Saline 500 ML IV (14:55)
[2020-06-11 15:09] LABS: PTT Activated 23.9 sec (21.0-31.4); Prothrombin Time 10.3 sec (9.3-11.0)
[2020-06-11 15:14] LABS: ALT 17 U/L (16-63); AST 14 U/L (15-37); Albumin 4.6 g/dL (3.4-5.0); Alkaline Phosphatase 167 U/L (46-116); Anion Gap 13.1 mmol/L (3-11); BUN 23 mg/dL (7-18); Bilirubin, Total 0.9 mg/dL (0.2-1.0); CO2 22.9 mmol/L (21.0-32.0); CREATININE 1.16 mg/dL (0.70-1.30); Calcium 9.8 mg/dL (8.5-10.1); Chloride 105 mmol/L (98-107); Glucose 119 mg/dL (74-106); Potassium 4.1 mmol/L (3.5-5.1); Sodium 141 mmol/L (136-145); TSH (W/Ref FT4) 1.13 uIU/mL (0.36-3.74); Total Protein 7.8 g/dL (6.4-8.2)
[2020-06-11 15:15] LABS: Troponin I < 0.05 ng/mL (<0.06)
[2020-06-11 15:23] LABS: D-Dimer 257 ng/mlFEU (<500)
--- NOTE | 2020-06-11 15:49 | DI.VRAD_ITS ---
PROCEDURE INFORMATION: Exam: XR Chest, 2 Views Exam date and time: 06/11/2020 3:42 PM Age: 60 years old Clinical indication: Fatigue, SOB TECHNIQUE: Imaging protocol: XR of the chest Views: 2 views. COMPARISON: No relevant prior studies available. FINDINGS: Lungs: No consolidation. Pleural space: Unremarkable. No pleural effusion. No pneumothorax. Heart/Mediastinum: Unremarkable. No cardiomegaly. Bones/joints: Unremarkable. IMPRESSION: No acute findings. Of note, mild viral pneumonia cannot be excluded and laboratory testing may be performed if clinically indicated. Dictated and Authenticated by: Lisa Suarez MD. Ordering:MELA Louise MD
--- NOTE | 2020-06-11 15:58 | DI.VRAD_ITS ---
PROCEDURE INFORMATION: Exam: CT Head Without Contrast Exam date and time: 06/11/2020 3:37 PM Age: 60 years old Clinical indication: Other: Weakness, fatigue, HX of stroke TECHNIQUE: Imaging protocol: Computed tomography of the head without contrast. COMPARISON: CT HEAD FOR STROKE PROTOCOL 12/02/2018 12:59 AM FINDINGS: Brain: There is no acute intracranial hemorrhage, mass effect or midline shift. No large acute territorial infarct identified. There are patchy regions of hypodensity in the periventricular and subcortical white matter, likely on the basis of chronic microvascular ischemic disease. A small remote left basal ganglia infarct is stable in appearance. Ventricles: The ventricles and sulci are prominent in size, which is likely related to global cerebral volume loss. There is a cavum septum pellucidum. Bones/joints: Unremarkable. No acute fracture. Sinuses: Visualized sinuses are unremarkable. No fluid levels. Mastoid air cells: Visualized mastoid air cells are well aerated. Soft tissues: Soft tissue in the right external auditory canal again noted, likely cerumen. IMPRESSION: No acute intracranial hemorrhage, mass effect or midline shift. Dictated and Authenticated by: Lisa Suarez MD. Ordering:MELA Louise MD
== END 2020-06-11 17:11 | disposition home or self-care (01) ==
PROVIDERS: Emergency Provider Student in an Organized Health Care Education/Training Program; PCP Family Medicine
DX: E86.0 Dehydration (principal); R53.1 Weakness; C61 Malignant neoplasm of prostate; Z79.899 Other long term (current) drug therapy; Z91.14 Patient's other noncompliance with medication regimen
CPT/HCPCS: 36415; 80053; 93005; 96360; 99285; 70450; 71046; 81003; 84443; 84484; 85025; 85379; 85610; 85730; 93010

== ENCOUNTER 2020-07-19 01:06 | Outpatient (CLI) | payer OTHER, SELFPAY ==
--- NOTE | 2020-07-19 07:15 | DI.DEXA_ITS ---
EXAM: XR DEXA BONE DENSITY W/WO NILDA CLINICAL HISTORY: r/o osteoporosis, on chemo for prostate ca, on steroids,z91.89 TECHNIQUE: [employer] C densitometer COMPARISON: CR,XR XR CHEST 2V PA LATERAL from 06/11/2020 FINDINGS: The NILDA image shows no evidence of compression fractures. The bone mineral density measurements of the lumbar spine correspond to a total T-score of 0.2, in the normal range. Bone mineral density maria teresa surements of left hip correspond to a total T-score of -1.8 and a femoral neck T-score of -1.9, in th e osteopenic range. Bone mineral density measurements of left forearm correspond to a total T-score of -0.1 and a T-score of the distal 3rd of 0.7, in the normal range. IMPRESSION: Normal bone mineral density of the lumbar spine and left forearm. Osteopenia of the left hip.
== END 2020-07-19 01:26 ==
PROVIDERS: PCP Student in an Organized Health Care Education/Training Program; Visit Provider Student in an Organized Health Care Education/Training Program
DX: M85.851 Other specified disorders of bone density and structure, right thigh (principal); Z91.89 Other specified personal risk factors, not elsewhere classified; C61 Malignant neoplasm of prostate; Z79.52 Long term (current) use of systemic steroids
CPT/HCPCS: 77080

== ENCOUNTER → 2020-09-06 09:33 | Outpatient (BNVA) | payer OTHER, SELFPAY | PROVIDERS: PCP Student in an Organized Health Care Education/Training Program; Referring Provider Student in an Organized Health Care Education/Training Program; Visit Provider Urology | DX: C61 Malignant neoplasm of prostate (principal); I10 Essential (primary) hypertension | CPT/HCPCS: 99213 ==

== ENCOUNTER → 2021-01-27 13:50 | Outpatient (BNVA) | payer OTHER, SELFPAY | PROVIDERS: PCP Student in an Organized Health Care Education/Training Program; Referring Provider Student in an Organized Health Care Education/Training Program; Visit Provider Physical Therapy Assistant | DX: Z12.11 Encounter for screening for malignant neoplasm of colon (principal); Z86.010 Personal history of colon polyps ==

== ENCOUNTER 2021-02-10 11:12 | Day surgery (SDC) | payer OTHER, SELFPAY ==
[2021-02-10 11:27] VITALS: BP 136/77; PULSE 68; RESP 16; TEMP 35.7; O2SAT 98
--- NOTE | 2021-02-10 11:47 | W.PM.DSUDISC ---
Discharge Plan Disposition Patient Disposition: HOME Condition: Good Discharge Details Reason For Visit: colon scope Attending Provider: Ana Harris Primary Care Provider: Mima Null Home Meds and New Rx's Prescriptions: No Action lisinopril 40 mg tablet 40 mg PO DAILY Qty: 90 RF: 3 amlodipine 10 mg tablet 10 mg PO DAILY Qty: 90 RF: 3 Hold Instructions: Changed by Provider ascorbate calcium (vitamin C) 500 mg tablet 1 gm PO DAILY RF: 0 baclofen 10 mg tablet 10 mg PO TID PRNRF: 0 melatonin 10 mg tablet 10 mg PO HS PRNRF: 0 clopidogrel [Plavix] 75 MG tablet 75 mg PO DAILY Qty: 90 RF: 0 cholecalciferol (vitamin D3) [Vitamin D3] 25 mcg (1,000 unit) Tablet,Chewable 25 mcg PO DAILY RF: 0 tamsulosin 0.4 MG capsule 0.4 mg PO PRN PRNRF: 0 Discharge Instructions Additional Instructions: Findings: x2 small polyps and divertiucla -make sure you are moving your bowels on a regular basis and avoid straining to move your bowels. If you are having constipation- start a fiber product such as Metamucil or Benefiber Follow up: My office will send a letter with the results of the pathology report on the polyp in approximately 3 weeks, and when to repeat the colonoscopy. Please call if you develop: fevers >101.5 Nausea or Vomiting Abdominal pain that is not transient DAY SURGERY UNIT POST COLONOSCOPY INSTRUCTIONS 1. Because there will be medication in your system for the next 24 hours, you may feel a little sleepy. Your coordination will be affected. Therefore: a. Do not drive or operate dangerous equipment for 24 hours. b. Do not drink alcohol beverages for 24 hours (not even beer). c. Plan to go home and rest for the day. 2. Generally there are no restrictions on your activity after a day or so has gone by, but you may feel a bit fatigued for a few days. 3 After you arrive home you may have a light meal and return to a normal diet as you can tolerate it without feeling sick to your stomach. 4. After surgery, you may feel pain or discomfort. This should be only transient, but if it persists please contact your doctor. 5. If there are any questions regarding the findings of your procedure, please feel free to contact your doctor. 6. If you are unable to contact your doctor with a problem, contact the hospital at [phone]. 7. Continue all your regular medications unless directed otherwise. I understand the above instructions and have no questions. Signature of Patient or Responsible Adult Escort Date/Time Name of Responsible Adult Escort Signature of Nurse Date/Time DIVERTICULAR DISEASE OVERVIEW ? A diverticulum is a pouch-like structure that can form through points of weakness in the muscular wall of the colon (ie, at points where blood vessels pass through the wall). Diverticulosis affects men and women equally. The risk of diverticular disease increases with age. It occurs throughout the world but is seen more commonly in developed countries. WHAT IS DIVERTICULAR DISEASE? Diverticulosis ? Diverticulosis merely describes the presence of diverticula. Diverticulosis is often found during a test done for other reasons, such as flexible sigmoidoscopy, colonoscopy, or barium enema. Most people with diverticulosis have no symptoms and will remain symptom free for the rest of their lives. A person with diverticulosis may have diverticulitis, or diverticular bleeding. Diverticulitis ? Inflammation of a diverticulum (diverticulitis) occurs when there is thinning and breakdown of the diverticular wall. This may be caused by increased pressure within the colon or by hardened particles of stool, which can become lodged within the diverticulum. The symptoms of diverticulitis depend upon the degree of inflammation present. The most common symptom is pain in the left lower abdomen. Other symptoms can include nausea and vomiting, constipation, diarrhea, and urinary symptoms such as pain or burning when urinating or the frequent need to urinate. Diverticulitis is divided into simple and complicated forms. ?Simple diverticulitis, which accounts for 75 percent of cases, is not associated with complications and typically responds to medical treatment without surgery. ?Complicated diverticulitis occurs in 25 percent of cases and usually requires surgery. Complications associated with diverticulitis can include the following: ?Abscess ? a localized collection of pus ?Fistula ? an abnormal tract between two areas that are not normally connected (eg, bowel and bladder) ?Obstruction ? a blockage of the colon ?Peritonitis ? infection involving the space around the abdominal organ ?Sepsis ? overwhelming body-wide infection that can lead to failure of multiple organs Diverticular bleeding ? Diverticular bleeding occurs when a small artery located within a diverticulum is eroded and bleeds into the colon. Diverticular bleeding usually causes painless bleeding from the rectum. In approximately 50 percent of cases, the person will see maroon or bright red blood with bowel movements. Is bleeding with a bowel movement normal? ? It is not normal to see blood in a bowel movement; this can be a sign of several conditions, most of which are not serious (eg, hemorrhoids) but some of which are serious and require immediate treatment. Anyone who sees blood after a bowel movement should consult with their healthcare provider to determine if further testing or evaluation is needed. DIVERTICULOSIS AND DIVERTICULITIS DIAGNOSIS ? Diverticulosis is often found during tests performed for other reasons. ?Barium enema ? This is an x-ray study that uses barium in an enema to view the outline of the lower intestinal tract. This is an older test and has been largely replaced by computed tomography (CT) scan. ?Flexible sigmoidoscopy ? This is an examination of the inside of the sigmoid colon with a thin, flexible tube that contains a camera. ?Colonoscopy ? This is an examination of the inside of the entire colon. ?CT scan ? A CT scan is often used to diagnose diverticulitis and its complications. If diverticulitis (not just diverticulosis) is suspected, the above three tests should not be used because of the risk of perforation. TREATMENT Diverticulosis ? People with diverticulosis who do not have symptoms do not require treatment. However, most clinicians recommend increasing fiber in the diet, which can help to bulk the stools and possibly prevent the development of new diverticula, diverticulitis, or diverticular bleeding. Fiber is not proven to prevent these conditions in all patients but may help to control recurrent episodes in some. Increase fiber ? Fruits and vegetables are a good source of fiber. Fiber content of packaged foods can be calculated by reading the nutrition label. Seeds and nuts ? Patients with diverticular disease have historically been advised to avoid whole pieces of fiber (such as seeds, corn, and nuts) because of concern that these foods could cause an episode of diverticulitis. However, this belief is completely unproven. We do not suggest that patients with diverticulosis avoid seeds, corn, or nuts. Diverticulitis ? Treatment of diverticulitis depends upon how severe your symptoms are. Home treatment ? If you have mild symptoms of diverticulitis (mild abdominal pain, usually left lower abdomen), you can be treated at home with a clear liquid diet and oral antibiotics. However, if you develop one or more of the following signs or symptoms, you should seek immediate medical attention: ?Temperature >100.1?F (38?C) ?Worsening or severe abdominal pain ?An inability to tolerate fluids Hospital treatment ? If you have moderate to severe symptoms, you may be hospitalized for treatment. During this time, you are not allowed to eat or drink; antibiotics and fluids are given into a vein. If you develop an abscess of the colon, you may require drainage of the abscess (usually performed by placing a drainage tube across the abdominal wall) or by surgically opening the affected area. Surgery ? If you develop a generalized infection in the abdomen (peritonitis), you will usually require an emergency operation. A two-part operation may be necessary in some cases. ?The first operation involves removal of the diseased colon and creation of a colostomy. A colostomy is an opening between the colon and the skin, where a bag is attached to collect waste from the intestine. The lower end of the colon is temporarily sewed closed to allow it to heal. ?Approximately three to six months later, a second operation is performed to reconnect the two parts of the colon and close the opening in the skin. You are then able to empty your bowels through the rectum. Sometimes patients require up to a year to recover from the first operation, depending on how sick they were. In non-emergency situations, the diseased area of the colon can be removed and the two ends of the colon can be reconnected in one operation, without the need for a colostomy. Surgery versus medical therapy ? An operation to remove the diseased area of the colon may be necessary if you do not improve with medical therapy. After an episode of uncomplicated diverticulitis, elective surgery is generally not required as the risk of another attack or requiring emergency surgery is low. However, patients with persistent symptoms attributable to diverticulitis, a history of complicated diverticulitis, or a compromised immune system should be evaluated for possible surgery to prevent another attack. In such patients, another attack has been associated with a higher risk of complications or . Of course, the decision will also depend in part upon your other medical conditions and ability to undergo surgery. In many cases, an elective operation can be performed laparoscopically, using small incisions, rather than the typical vertical (up and down) abdominal incision. Laparoscopic surgery usually allows you to recover more quickly and shortens the hospital stay. After diverticulitis resolves ? After an episode of diverticulitis resolves, if you have not had a recent colonoscopy, the entire length of the colon should be evaluated to determine the extent of disease and to rule out the presence of abnormal lesions such as polyps or cancer. Recommended tests include colonoscopy, barium enema and sigmoidoscopy, or CT colonography. Diverticular bleeding ? Most cases of diverticular bleeding resolve on their own. However, some people will need further testing or treatment to stop bleeding, which may include a colonoscopy, angiography (a treatment that blocks off the bleeding artery), bleeding scan, or surgery. DIVERTICULAR DISEASE PROGNOSIS Diverticulosis ? Over time, diverticulosis may cause no problems or it may cause episodes of bleeding and/or diverticulitis. Approximately 15 to 25 percent of people with diverticulosis will develop diverticulitis, while 5 to 15 percent will develop diverticular bleeding. Diverticulitis ? Approximately 85 percent of people with uncomplicated diverticulitis will respond to medical treatment, while approximately 15 percent of patients will need an operation. After successful treatment for a first attack of diverticulitis, one-third of patients will remain asymptomatic, one-third will have episodic cramps without diverticulitis, and one-third will go on to have a second attack of diverticulitis. The prognosis tends to remain similar following a second attack of diverticulitis. Only 10 percent of people remain symptom-free after a second attack. Subsequent attacks tend to be of similar severity, not increasing in severity as previously believed. High Fiber Diet What is Dietary Fiber? All fiber comes from plants, bushes, teddy or trees. Of course, the ones that we eat provide us with fruits, vegetables and grains. There are many different types of fiber but the three that are most important to the health of the body are: Insoluble Fiber This fiber does not dissolve in water, nor is it fermented by the bacteria residing in the colon. Rather, it retains water and in so doing, helps to promote a larger, bulkier and more regular bowel activity. This, in turn, may be important in preventing disorder such as diverticulosis and hemorrhoids, and in sweeping out certain toxins and cancer causing carcinogens. Sources of insoluble fiber are: ? whole grain wheat and other whole grains ? corn bran, including popcorn, unflavored and unsweetened ? nuts and seeds ? potatoes and the skins from most fruits from trees such as apples, bananas and avocados ? many green vegetables such as green beans, zucchini, celery and cauliflower ? some fruit plants such as tomatoes and kiwi Soluble Fiber These fibers are fermented or used by the colon bacteria as a food source or nourishment. When these good bacteria grow and thrive, many health benefits occur in both the colon and the body. Soluble fiber is present in some degree in most edible plant foods, but the ones with the most soluble fiber include: ? legumes such as peas and most beans, including soybeans ? oats, rye and barley ? many fruits such as berries, plums, apples bananas and pears ? certain vegetables such as broccoli and carrots ? most root vegetables ? psyllium husk supplement products Prebiotic Soluble Fiber These are relatively newly discovered soluble plant fibers. The technical name for this fiber is inulin or fructan. When these soluble fibers are fermented by the good colon bacteria, some further significant health benefits have been shown to occur by research in many medical centers. These soluble prebiotic fibers occur in significant amounts in: ? asparagus ? yams ? onions ? garlic ? bananas ? leeks ? agave ? chicory and other root vegetables such as [place] artichokes ? wheat, rye and barley (smaller amounts) Benefits of a High Fiber Diet The health benefits of a high fiber diet, consumed on a regular basis and reaching recommended amounts (below), are now fairly well-defined. There are some additional benefits in the early research stage with the prebiotic soluble fibers. What is now known regarding a high fiber diet include: Bowel Regularity A high fiber diet promotes regularity with a softer, bulkier and regular stool pattern. This decreases the chance of hemorrhoids, diverticulosis and perhaps colon cancer. Cholesterol and Reduced Triglycerides The soluble fibers are the ones that will reduce cholesterol levels when used on a regular basis. Psyllium husk and prebiotic soluble fiber will also reduce cholesterol. They may also reduce the incidence of coronary heart disease. Oats, flax seeds and legumes or beans are the recommended fibers. Colon Polyps and Cancer It is still not certain if a high fiber diet helps prevent colon cancer. Considerable research suggests that this may occur. Certainly it makes sense to increase regularity and so speed the movement of cancer causing carcinogens through the bowel. In addition, reducing a heavy meat diet reduces the bile flow from the liver in a favorable way. This, too, reduces the amount of carcinogens that reach and are manufactured in the colon. Finally, a high fiber diet, including prebiotic soluble fiber, increases the integrity and health of the wall of the colon. The risk of cancer may be reduced. Colon Wall Integrity A high fiber diet changes the bacterial makeup of the colon toward a more favorable balance. For instance, it is known that those people with obesity, diabetes type 2 and inflammatory bowel disease have a predominance of bad bacteria in the colon. This, in turn, may render the bowel wall weak and allow bacteria and, indeed, even toxins to seep through. A high fiber diet with a modest reduction in animal and meat products may return the bacterial makeup to a more positive balance. This, in particular, has been seen when the soluble fiber prebiotics are added to the diet. Blood Sugar Soluble fiber such as in legumes (beans), oats and in prebiotic fibers slows the absorption of blood sugar and so helps regulate the sugar in the blood. Insoluble fiber on a regular basis is associated with reduced risk of type 2 diabetes. Weight Loss High fiber diets are more filling and give a sense of fullness sooner than an animal and meat based diet does. In addition, the soluble prebiotic fibers have been shown to turn off the hunger hormones produced in the wall of the gut and to increase the hormones that give a sense of fullness. Those hormones are made in the wall of the gut. New medical research has shown that the bacterial makeup in the colon in overweight people is abnormal to the extent that they manufacture and absorb almost twice the number of calories through the colon wall as do normals. Prebiotic fibers (below) will help change this hormonal balancein a favorable way. Bacteria and the Function of the Colon The colon finishes the digestive process. Hopefully, the waste products move through in a nice regular manner. Insoluble fibers help this process by retaining water and so producing a bulkier, softer stool, which is easy to pass. The additional role of the colon is to provide a home for an enormous number of micro-organisms, mostly bacteria. Recent research has shown that there are over 1,000 species of bacteria with a total bacterial count ten times the number of cells in the body. These bacteria play a major role in keeping the colon wall itself healthy. In addition, these good bacteria produce a very strong immune system for the body. They significantly increase calcium absorption and bone density. They provide other documented benefits. It is the soluble fibers in the diet that are so effective in stimulating the growth of good colon bacteria. How Much is Enough? The amount of fiber in food is measured in grams. National nutritional authorities recommend the following amounts of dietary fiber daily. Under Age 50 Over Age 50 Men 38 grams 30 grams Women 25 grams 21 grams For a week or so, it is best to tally the amount of fiber you are consuming. Boxed and packaged foods will have the amount of fiber per serving on the nutrition label. Which Fibers and Which Foods are Best? As noted, healthy fiber is only found in plants. The three major categories are whole grains, fruits and vegetables. Whole Grains Wheat, oats, barley, wild or brown rice, amaranth, buckwheat, bulgur, corn, millet, quinoa, rye, sorghum, teff and triticals. By far, wheat, oats and wild or brown rice are most common. Always buy whole grain products. White bread, baked goods and rolls almost always are made from wheat flour. Wheat flour is white because most of the fiber, vitamins and other nutrients have been removed. Try not buy enriched grains. What this means is that simple white flour has had vitamins added to it by the consulting marine engineer. The word, enriched, implies a good and healthy product. On the contrary, enriched means that most of the fiber has been removed and a few vitamins added. Fruits Fruits come from trees such as apple and pear or from bushes or teddy. You should eat a wide variety of fruits, preferably with every meal. In many cases, the skin of a fruit such as apple will contain much of the insoluble fiber while the pulp contains most of the soluble fiber. To the extent possible, buy organic fruits as these will have little or no pesticides. Always wash fruit. Vegetables Eat a wide variety of vegetables. They should be a mainstay of lunch and dinners. Frozen vegetables retain as much nutrition and fiber as fresh vegetables. As with fruit, try to buy organic to reduce any residual pesticide ingestion. Wash fresh vegetables thoroughly. Cruciferous vegetables such as broccoli, [place] sprouts and cauliflower contain certain chemicals such as sulforaphane. This substance has very strong anti-cancer properties and should be eaten frequently. Legumes, Beans, Peas and Soybeans These vegetables have plenty of soluble fiber and should be part of a varied vegetable intake. Beans, in particular, contain a certain type of fiber that may lead to harmless gas or bloating. Nuts and Seeds These are rich sources of fiber and are a good substitute for sweets such as candies and baked sweet goods. While nuts and seeds are rich in fiber, they also contain vegetable fat and so can and do add calories. Read the Labels As noted, fresh and frozen foods are usually better. They have good nutrition and few, if any, chemicals added to them. When buying packaged foods and, in particular grains, look for three things: ? The first word on the label should be whole, such as whole wheat or whole grain. ? Check out the calories and the amount of fiber in a serving. ? How many and what other additives or chemicals are added. Fewer is always better. Do you know what each additive does? Some are added not for the benefit of the media planner / buyer but rather for manufacturers. These could and do include sugar, artificial flavor, chemicals to prevent oxidation and spoilage, emulsifiers to blend the product. You have to be a home health lpn. Fiber Facts, Nuggets and Pearls ? For breakfast you can easily get the day started well by using a high fiber, whole grain cereal. Check the labels. Add fruit such as blueberries and bananas. If you are an egg eater, use whole wheat or grain toast. Adding wheat germ gives you a good fiber kick. ? Always use whole grain or wheat with rolls and sandwiches. Does your fast food store not have them? Perhaps you look elsewhere. Eating an occasional black redman or veggie burger provides variety. ? Snacks should consist of fruit and/or nuts. While nuts are loaded with fiber, they are an energy rich food, meaning they have a lot of calories in a small packet. ? Fruit juices should contain pulp. Clear juices such as clear orange, pear or apple juice contain little fiber and have a lot of fructose. Prune juice is usually high in fiber. ? Homemade soups ? adding fresh or frozen vegetables to a chicken or vegetable stock is a good way to start homemade soup. ? Salads ? adding cooked and then chilled vegetables provide great flavoring to almost any salad. Remember, a feng salad has lots of cooked corn in it. Small slices of apples or oranges and nuts such as chopped walnuts or sliced almonds always adds taste, variety and fiber to almost any salad. ? Fruit ? Try to eat fruit of some type with almost every meal. ? Rethink how you place the various foods on your dinner plate. Reducing the portions of the meat or animal food portion to the side with equal or more portions of vegetables, legumes and fruits portion always allows for more fiber. There was never anything magic about making the meat or animal food portion the main part of the dinner plate. Eating from smaller plates can, over time, trick your mind and terminal system operator habit of using a dinner plate. Again, there is nothing magic in an 11, 12, or 13 inch dinner plate. Fiber Supplements There are a variety of fiber supplements available on the food or pharmacy shelves. Psyllium This soluble plant fiber has been used in [place] for over 2,000 years. It is a soluble fiber with mucilage in it. This acts to retain a lot of water and also is fermented by colon bacteria. When 7 grams a day are used, it does lower cholesterol. Metamucil in various forms is psyllium. Methyl Cellulose All the cellulose products come from finely ground wood chips which are then treated in a variety of ways such as boiling in acids. Methyl cellulose is an insoluble fiber which does dissolve in water. It is also an emulsifier, meaning it blends oils and water. Citrucel is methyl cellulose (MC). MC may not be appropriate for Crohn?s disease or ulcerative colitis as several medical studies have shown that certain emulsifiers dissolve the mucous lining of the colon in animals prone to Crohn?s disease. This then allows bacteria to invade the underlying tissue. Inulin Inulin is a soluble prebiotic fiber found in many foods and which are fermented mostly in the left side of the colon. It is available in a supplement as generic inulin and in Fiber Choice. Oligofructose FOS These are also prebiotic fibers. They are fermented very quickly in the right side of the colon. Prebiotin This product is a combination of oligofructose, which feeds the bacteria in the right side of the colon and inulin, which does the same in the left side of the colon. There seems to be a benefit for this particular formula based on medical research. Prebiotic Soluble Fiber These may be the healthiest of all the soluble fibers. They grow in many plants and have had a great deal of research done on them in the last 10-15 years. These fibers are found in asparagus, yams and other root vegetables such as chicory, garlic, onion, leeks and in smaller amounts in wheat. This research has shown the following: ? Increase in good and decrease in bad colon bacteria ? Increase calcium absorption and enhanced bone mass ? Enhanced immune system ? Appetite and weight control by changing the hormone appetite signals to the brain ? May decrease colon cancer incidence ? Reduce or correct a leaky colon Eating a wide variety of plant food up to the recommended amount will likely give you enough prebiotic fiber. Supplements such as Prebiotin can be added to the diet. Short Chain Fatty Acids (SCFA) Some rather remarkable research findings have shown that one of the benefits of ingesting a lot of soluble fiber, in particular the prebiotic ones, results in larger amounts of SCFAs in the colon. These SCFAs are made by the good bacteria in the colon such as Bifidobacter and Lactobacillus. These small molecules have been shown to do the following: ? Enhance the health and integrity of the colon wall ? Provide nourishment for the cells that actually line the colon ? Increases the acidity of the colon which is a very real health benefit ? Stabilize blood sugar for diabetics ? Reduce blood cholesterol and triglyceride ? Significantly enhance immunity ? May be a benefit for Crohn?s disease and ulcerative colitis patients Fiber and Gas Everyone has intestinal gas and that is a good thing. It means that bacteria, hopefully the good ones, are thriving. The normal amount of flatus passed each day depends on sex and what is eaten. The normal number of flatus is 10-20 times a day. When the bacteria that make intestinal gases are growing, it also means that other good bacteria are using the same fibers to grow and produce multiple health benefits, including the production of healthy short-chain fatty acids. These substances are produced quietly in the colon and produce many health-related outcomes. Soluble fiber should always be used in a gradual manner. If too much is consumed at any one time, then excess, but harmless, intestinal gas can occur. People with irritable bowel syndrome are particularly prone to bloating and mild cramping. In this instance, soluble fiber in the diet or supplement should be used in small doses and increased gradually. Finally, prebiotic fibers tend to cause the production of short-chain fatty acids which acidify the colon. This, in turn, reduces or stops the growth of bacteria that make the smelly hydrogen sulfide gases that produce noxious flatus. People who consume many vegetables with prebiotics or take a prebiotic fiber supplement often have non-odoriferous flatus. Fiber and Irritable Bowel Syndrome Irritable bowel syndrome (IBS) is one of the most common disorders of the lower digestive tract. The symptoms of IBS can be quite varied. They can be a mix of several symptoms such as constipation, diarrhea, crampy abdominal discomfort, bloating and gas. An attack of IBS can be triggered by emotional tension and anxiety, poor dietary habits and certain medications. It is now known that infections in the intestine can lead to long-term IBS symptoms. Increased amounts of fiber in the diet can help relieve the symptoms of irritable bowel syndrome by producing soft, bulky stools. This helps to normalize the time it takes for the stool to pass through the colon. Recent medical research with newer techniques has shown some surprising and dramatic findings for IBS patients. Specifically, there is a very significant and abnormal shift of bacteria from those that provide health benefits to those bad bacteria that we really do not want in the gut. The technical name for this bad group of bacteria is called Firmicutes. Along with this abnormal bacterial collection, there is a smoldering low-grade inflammation in the gut wall that may contribute to symptoms. The goal for IBS patients should be to gradually increase the soluble dietary fibers in the diet so as to promote the growth of good bacteria and so suppress the bad ones along with the associated inflammation. IBS patients need to be careful of the amount of soluble fiber they consume. The reason for this is that, while the good colon bacteria thrive on these fibers and produce health benefits, other gas-forming bacteria may generate excessive but harmless gas and subsequent bloating. Thus, soluble plant fibers or a dietary prebiotic supplement should be taken in small initial doses and then gradually increased to tolerance. Fiber and Colon Polyps/Cancer Colon cancer is a major health problem. This disease is most common in Western cultures. It is not seen very often in rural cultures where the diet is mostly plant based. Usually, colon cancer starts out as a colon polyp, a benign mushroom-shaped growth. In time it grows, and in some people it becomes cancerous. Colon cancer is usually always curable if polyps are removed when found or if surgery is performed at an early stage. It is now known that people can inherit the risk of developing colon cancer, but diet is important, too. As noted, there is a very low rate of colon cancer in residents of countries where grains are unprocessed and retain their fiber. It seems that in the [place] world, cancer-containing agents (carcinogens) remain in contact with the colon wall for a longer time and in higher concentrations. So, a large bulky stool may act to dilute these carcinogens by moving them through the bowel more quickly. Less carcinogenic exposure to the colon may mean fewer colon polyps and less cancer. A very current review of the entire world?s literature on the effect of fiber on colon polyps and cancer prevention has shown rather clearly that for every 10 grams of fiber added to the diet, there is a 10% reduction in incidence of colon cancer. So the recommended 30 gram fiber diet would result in a 30% less chance of getting these tumors. There are also substances produced in the colon by the good bacteria that seem to retard certain pre-cancer factors from developing. They are called short-chain fatty acids (SCFA). See above for description of SCFAs. A high fiber diet increases these substances. So, the combination of dietary fiber and the production of short-chain fatty acids have a clear health benefit. Fiber and Diverticulosis Prolonged, vigorous contraction of the colon over a long period of time may result in diverticulosis. This increased pressure causes small and, eventually, larger ballooning pockets to form. These pockets by themselves cause no problem. However, sometimes they become infected (diverticulitis) or even break open (perforate) causing infection or inflammation within the abdomen (peritonitis). A high fiber diet increases the bulk in the stool and thereby reduces the pressure within the colon. By so doing, the formation of pockets may be reduced or possibly even stopped. In the past, many physicians were fearful that seeds as in tomatoes, nuts or berries were harmful and could get inside these pockets and rattle around, causing damage. We now know that this has never been the case and that these foods contain lots of fiber and are actually beneficial for diverticulosis patients. Certain bulking agents such as psyllium are traditional types of bulk producing supplements. Psyllium is a soluble fiber. Combining it with insoluble fiber as in wheat bran or corn bran (no gluten) can enhance this bulking effect even more. A product containing a prebiotic, psyllium and wheat bran is probably a very good combination for bowel regularity. Prebiotin Regularity/Diverticulosis is one such product. Activity:: no lifting over 20#'s x 24 hrs Diet:: small light meals x 24 hrs Discharge Orders Discharge Orders: Discharge Order (Routine); Ordered 02/09/21 Ordered By: Ana Harris DS: Diagnosis Discharge Diagnosis (1) Adenomatous polyps: Status: Acute (2) Diverticula of colon: Status: Acute
[2021-02-10] MEDS: Lactated Ringers 1,000 ML 80 ML IV (11:56)
--- NOTE | 2021-02-10 12:18 | BOWEL_PTH ---
PATIENT: Hernandez Chris LOC: [facility] U#:[id number] AGE/SX: 60/M ROOM: RE02/10/[address]: Ana Harris : 1960 BED: DIS: 02/10/2021 SPEC #: [id number] RECD: 02/10/21 17:34 STATUS: VENECIA REQ #: [id number] SYED: 02/10/21 12:[address]: Ana Harris DEPT: Surgical Specimen RECD BY: Selena Velazquez ENTERED: 02/10/21 17:35 SP TYPE: Bowel OTHR DR: Mima Null DO Tissues: 1 - BIOPSY BOWEL Procedures: GROSS AND MICRO LEVEL 4 Comments: [id number]
--- NOTE | 2021-02-10 12:32 | COLE_ITS ---
Date of service: 02/10/21 Time of Service: 12:33 Colonoscopy Report Date of procedure: 02/10/21 Pre-op diagnosis general: A. polyps Post-op diagnosis procedure note: other (polyp & divertic) Procedure: cold polypectomy x2 Surgeon: Ana Harris Anesthesia proc note operative: GETA Estimated blood loss (mL): 1 Pathology: other Complications: None Disposition: no change Prep: Miralax/Dulcolax Retraction Time: 12 mins Procedure Description: After informed consent was obtained the patient was taken to the procedure room and placed in a left decubitous position. Monitors were applied and a time out was done. The patients name, date of , procedure, allergies to medications and metal in their body was reviewed. The patient was then sedated. Once sedated and comfortable a rectal exam was done. External exam was normal. Internal exam revealed a normal sphincter tone and no palpable masses. The scope was then introduced and retrofelexed. Grade I internal hemorrhoids were identified. The scope was then advanced to the cecum w/out difficulty. The TI and appendiceal orifice were identified. The prep was good. The scope was then slowly retracted over 12 minutes back into the rectum. Polyps were removed at x2, less than 5 mm, polyps are removed in the cecum with a cold biopsy forcep. All specimens are retrieved and no bleeding is noted. He has m inor diverticula confined to the sigmoid colon with no signs of active bleeding or infections. No other mucosal abnormalities are visualized today. The mucosa appears pink and healthy. The scope was removed and the patient was woken up and taken back to Same day surgery in stable condition. The patient tolerated the procedure well and there were no immediate complications. Follow up: The patient should follow up in 5-10 yrs path pd years unless they develop changes in bowel habits or other new gastrointestinal complaints.
[2021-02-10 12:35] VITALS: BP 123/77; PULSE 60; RESP 16; TEMP 36.3; O2SAT 95
[2021-02-10 13:05] VITALS: BP 132/78; PULSE 61; RESP 16; TEMP 36.5; O2SAT 97
== END 2021-02-10 14:25 | disposition home or self-care (01) ==
PROVIDERS: PCP Student in an Organized Health Care Education/Training Program; Visit Provider Surgery
PROC: 0DJD8ZZ Inspection of Lower Intestinal Tract, Via Natural or Artificial Opening Endoscopic (ICD-10-PCS; CPT 45378; principal; 2021-02-10 11:15)
DX: Z12.11 Encounter for screening for malignant neoplasm of colon (principal); D12.0 Benign neoplasm of cecum; K64.0 First degree hemorrhoids; Z86.010 Personal history of colon polyps; Z79.01 Long term (current) use of anticoagulants; Z86.73 Personal history of transient ischemic attack (TIA), and cerebral infarction without residual deficits; I10 Essential (primary) hypertension
CPT/HCPCS: 45380; 88305

== ENCOUNTER → 2021-08-17 19:41 | Outpatient (CLI) | payer OTHER, SELFPAY ==
--- NOTE | 2021-08-17 13:30 | DI.RAD_ITS ---
Exam(s) XR KNEE RT 4V AP,LAT,NATHALIA,PAT EXAM: XR KNEE RT 4V AP,LAT,NATHALIA,PAT CLINICAL HISTORY: evaluate swelling/fluid, r/o acute bony pathology M25.561 PAIN RT KNEE. TECHNIQUE: 2D digital imaging was performed of the right knee. Four views obtained. AP, lateral, Me rchant and PA tunnel views were obtained. COMPARISON: CR,XR XR CHEST 2V PA LATERAL from 06/11/2020 FINDINGS: BONES: No acute fracture is present. No bony destructive lesion is seen. There is an enthesophyte at the inferior aspect of the patella. JOINTS: The knee is normally aligned. No joint effusion is seen. Small spurs are seen at the posterio r patella. SOFT TISSUE: Atherosclerosis. IMPRESSION: Mild degenerative changes. DATA REPOSITORY: RADIATION DOSE DELIVERED:
== END ==
PROVIDERS: PCP Student in an Organized Health Care Education/Training Program; Visit Provider Student in an Organized Health Care Education/Training Program
DX: M25.561 Pain in right knee (principal)
CPT/HCPCS: 73564

== ENCOUNTER → 2021-08-29 11:28 | Outpatient (BNVA) | payer OTHER, SELFPAY | PROVIDERS: PCP Student in an Organized Health Care Education/Training Program; Referring Provider Student in an Organized Health Care Education/Training Program | DX: M25.561 Pain in right knee (principal); M22.41 Chondromalacia patellae, right knee | CPT/HCPCS: 20610; 99213; J1040 ==

== ENCOUNTER 2021-09-12 03:51 | Outpatient (CLI) | payer OTHER, SELFPAY ==
[2021-09-12 10:18] LABS: Hemoglobin A1C 6.9 % (<5.7)
[2021-09-12 10:32] LABS: ALT 33 U/L (16-63); AST 14 U/L (15-37); Albumin 4.2 g/dL (3.4-5.0); Alkaline Phosphatase 198 U/L (46-116); Anion Gap 10.1 mmol/L (3-11); BUN 21 mg/dL (7-18); Bilirubin, Total 0.7 mg/dL (0.2-1.0); CO2 27.9 mmol/L (21.0-32.0); CREATININE 1.2 mg/dL (0.70-1.30); Calcium 9.3 mg/dL (8.5-10.1); Chloride 105 mmol/L (98-107); Glucose 147 mg/dL (74-106); HDL Cholesterol 36 mg/dL (40-60); Potassium 4.5 mmol/L (3.5-5.1); Sodium 143 mmol/L (136-145); Total Protein 7.3 g/dL (6.4-8.2); Triglyceride 228 mg/dL (<150)
[2021-09-12 11:00] LABS: Calculated LDL 140 mg/dL (<100); Cholesterol 221 mg/dL (<200)
== END 2021-09-12 03:52 | disposition home or self-care (01) ==
LOC: LBO 03:51
PROVIDERS: PCP Student in an Organized Health Care Education/Training Program; Visit Provider Student in an Organized Health Care Education/Training Program
DX: R73.03 Prediabetes; R73.09 Other abnormal glucose; I10 Essential (primary) hypertension; I63.9 Cerebral infarction, unspecified
CPT/HCPCS: 36415; 80053; 80061; 83036

== ENCOUNTER → 2021-10-17 08:49 | Outpatient (CLI) | payer MEDICARE, SELFPAY ==
--- NOTE | 2021-10-17 11:30 | DI.RAD_ITS ---
Exam(s) XR ELBOW LT COMPLETE EXAM: XR ELBOW LT COMPLETE CLINICAL HISTORY: r/o bony pathology,DISTAL HUMERAL TENDERNESS,LT ELBOW PAIN, M25.522. TECHNIQUE: 2D digital imaging was performed. COMPARISON: No exams were available for comparison FINDINGS: BONES: No acute fracture is present. No bony destructive lesion is seen. Mild spurring lateral epicon dyle. Mild spurring at the olecranon and margin of the radius. JOINTS: The elbow is normally aligned. No joint effusion is seen. SOFT TISSUE: Normal. IMPRESSION: Mild degenerative changes. DATA REPOSITORY: RADIATION DOSE DELIVERED:
== END ==
PROVIDERS: PCP Student in an Organized Health Care Education/Training Program; Visit Provider Student in an Organized Health Care Education/Training Program
DX: M25.522 Pain in left elbow (principal); M77.12 Lateral epicondylitis, left elbow; M19.022 Primary osteoarthritis, left elbow
CPT/HCPCS: 73080

== ENCOUNTER 2021-10-23 01:22 | Outpatient (CLI) | payer MEDICARE, SELFPAY ==
--- NOTE | 2021-10-23 06:30 | DI.MRI_ITS ---
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 TECHNIQUE: Multiplanar multisequence MRI was performed. COMPARISON: CR XR KNEE RT 4V AP,LAT,NATHALIA,PAT from 08/17/2021 CR XR KNEE RT 4V AP,LAT,NATHALIA,PAT from 08/17/2021 FINDINGS: BONES: There is no fracture or contusion pattern. JOINTS: Articular cartilage: Minimal high signal at patellar apex. Cartilage overlying femoral condy les and tibial plateaus appear intact.. No effusion is present. TENDONS: Extensor mechanism: Unremarkable. Medial retinaculum: Unremarkable. Lateral retinaculum: Unremarkable. Popliteus: Unremarkable. MUSCLES: Unremarkable. MENISCI: The medial meniscus shows mild degenerative changes and blunting at the apex.. The lateral meniscus is unremarkable. SOFT TISSUES: Mild anterior subcutaneous edema. LIGAMENTS: Anterior Cruciate: Appears thinned. Some fibers are intact. Posterior Cruciate: Unremarkable. Medial Collateral:Unremarkable. Lateral Collateral: Unremarkable. OTHER: IMPRESSION: Question of partial ACL tear. Minimal chondromalacia at the patellar apex. Mild degenerative change s of the medial meniscus. DATA REPOSITORY:
== END 2021-10-23 01:42 ==
LOC: DI 01:23
PROVIDERS: PCP Student in an Organized Health Care Education/Training Program; Visit Provider Student in an Organized Health Care Education/Training Program
DX: M22.41 Chondromalacia patellae, right knee (principal); M25.561 Pain in right knee
CPT/HCPCS: 73721

== ENCOUNTER → 2021-11-20 09:46 | Outpatient (BNVA) | payer MEDICARE, SELFPAY | PROVIDERS: PCP Student in an Organized Health Care Education/Training Program; Referring Provider Student in an Organized Health Care Education/Training Program; Visit Provider Student in an Organized Health Care Education/Training Program | DX: M77.12 Lateral epicondylitis, left elbow (principal); M22.41 Chondromalacia patellae, right knee | CPT/HCPCS: 99213 ==

== ENCOUNTER 2022-04-14 16:33 | Emergency (ER) | payer MEDICARE, SELFPAY ==
[2022-04-14] VITALS (14 sets, daily range): BP systolic 141–149; BP diastolic 77–89; PULSE 85–103; RESP 18–27; TEMP 37.4; O2SAT 94–97
--- NOTE | 2022-04-14 16:30 | RT.EKG_ITS ---
APPROVED REPORT Exam: Resting ECG Reason for Exam: Left Chest Pain Patient Location: E HR:82 bpm ECG Measurements Heart Rate 82 AXIS WV 151 P 19 QRSd 86 QRS 75 QT 385 T 40 QTc 451 Conclusion Sinus rhythm...normal P axis, V-rate 60- 99. Sinus. Normal axis. No STEMI. I have reviewed and interpreted ECG and agree with software generated interpretation.
--- NOTE | 2022-04-14 17:24 | W.ED.GENAD ---
Discharge Plan Disposition Patient Disposition: HOME Condition: Stable Discharge Details Clinical Impression: Chest wall pain Primary Care Provider: FELIX CARMEN ED Provider: Maria Guadalupe Navarrete Home Meds and New Rx's Prescriptions: Continued amlodipine 10 mg tablet 10 mg PO DAILY Qty: 90 3RF Hold Instructions: Changed by Provider lisinopril 40 mg tablet 40 mg PO DAILY Qty: 90 3RF triamcinolone acetonide 0.1 % cream 1 applic topical BID Qty: 30 0RF Rx Instructions: apply to rash area every 12 hours x 10 days ibuprofen 600 mg tablet 600 mg PO Q8H PRN (Reason: pain) Qty: 10 0RF Rx Instructions: Trial twice a day x 3 days. TAKE WITH FOOD (cheese/peanut butter) ascorbate calcium (vitamin C) 500 mg tablet 1 gm PO DAILY melatonin 10 mg tablet 10 mg PO HS PRN clopidogrel [Plavix] 75 mg tablet 75 mg PO DAILY Qty: 90 3RF cholecalciferol (vitamin D3) [Vitamin D3] 25 mcg (1,000 unit) Tablet,Chewable 25 mcg PO DAILY tamsulosin 0.4 mg capsule 0.4 mg PO PRN PRN Discharge Instructions Instructions: Chest Wall Pain (ED) Additional Instructions: Your imaging today is reassuring and shows no evidence of acute concerning or significant findings within your chest. There was a metastatic lesion noted to your lumbar vertebral body #2. You are being sent home with oxycodone to take as needed and directed for pain. Please be aware that you were seen during a time of global shortage of iodinated contrast media. This needs an alternative approach to your diagnosis and treatment may have been employed in order to provide optimal care during the shortage. Call your primary care doctor's office on Saturday to schedule a follow-up appointment for reevaluation. Your presentation at this time does not appear consistent with a blood clot in your lung, but if you were to suddenly become short of breath with worsening chest pain or any other new concerns, return to the emergency department for reevaluation and for consideration for additional imaging at this time. Discharge Data Discharge Physician: Maria Guadalupe Navarrete Medical Decision Making 62-year-old male with a history of metastatic prostate cancer presents with left lateral rib pain for the past 5 days. Pain worse with movement, when moving in a bumpy car, and when turning. Denies fever, cough or shortness of breath. EKG on arrival notes a rate of 82, sinus, normal axis, no STEMI and nondiagnostic. Patient has a localized area of tenderness to his left lateral inferior ribs. There is no evidence of rash, cellulitis or trauma. His lungs are clear. His vitals are within normal limits. His history and presentation does not appear consistent with ACS, PE or dissection. Patient referred for CT chest, abdomen and pelvis which were negative for acute findings other than metastatic lesion to L2. This patient was evaluated during a time of global shortage of iodinated contrast media. Based on guidance from the [employer], best practices and local institutional approach is an alternative path for evaluating and managing the patient may have been employed in order to provide optimal care during this shortage. The current situation has been discussed with the patient. Patient reassessed and his pain is improved and he feels comfortable going home. Oxycodone bottle given to go. Advised to follow up with the primary care doctor for re-evaluation. Usual and customary return precautions given prior to discharge. Medical Records Medical records reviewed: Yes I reviewed the patient's medical records. Imaging Data Radiologic Study: Radiologist's impression: CT Chest Without Contrast; Diagnostic Exam date and time: 04/14/2022 6:08 PM Age: 62 years old Clinical indication: Other: L lateral rib pain, h/o metastatic prostate CA; Left-sided; Additional info: Contingency protocol TECHNIQUE: Imaging protocol: Diagnostic computed tomography of the chest without contrast. COMPARISON: 1. CT Abdomen^ROUTINE ABDOMEN PELVIS ARTERIAL VENOUS (Adult) 16/09/2018 08:57 2. CR XR CHEST 2V PA LATERAL 10/08/2020 15:43 FINDINGS: Thyroid: Normal. No significant nodule or enlargement. Trachea: Normal. Lungs: Unremarkable. No consolidation. No nodule or mass. Pleural spaces: Unremarkable. No pneumothorax. No pleural effusion or thickening. Heart: No cardiomegaly. No pericardial effusion. Coronary arteries: No significant calcification. Esophagus: No esophageal mass or wall thickening. No hiatal hernia. Mediastinal space: Normal. No mass or adenopathy. Lymph nodes:? No enlarged mediastinal or axillary lymph nodes. Vasculature: There is mild enlargement of the ascending aorta to 3.9 cm. Coronary artery stents are noted. Bones/joints: Unremarkable. No acute fracture. Soft tissues: Unremarkable. Other findings: Visualized upper abdomen is unremarkable. IMPRESSION: No acute abnormality.? No evidence of metastatic disease within the thorax. CT Abdomen And Pelvis Without Contrast Exam date and time: 04/14/2022 6:08 PM Age: 62 years old Clinical indication: Other: L lateral rib pain, h/o metastatic prostate CA; Left-sided; Additional info: Contingency protocol TECHNIQUE: Imaging protocol: Computed tomography of the abdomen and pelvis without contrast. COMPARISON: 1. CT Abdomen^ROUTINE ABDOMEN PELVIS ARTERIAL VENOUS (Adult) 16/09/2018 08:57 2. CR XR CHEST 2V PA LATERAL 10/08/2020 15:43 FINDINGS: Lungs: Visualized lung bases are clear. Liver: Normal. No mass or intrahepatic biliary ductal dilatation. Gallbladder and bile ducts: Normal. No calcified stones. No ductal dilation. Pancreas: Normal. No mass or ductal dilation. Spleen: Normal. No splenomegaly. Adrenal glands: Normal. No mass. Kidneys and ureters: Normal. No hydronephrosis, calculus, cyst or mass. Stomach and bowel: Unremarkable. No significant dilatation or obstruction. No mucosal thickening or visible mass. Appendix: No evidence of appendicitis. Intraperitoneal space: Unremarkable. No free air. No significant fluid collection. Vasculature: Aorta is atherosclerotic but nonaneurysmal. Lymph nodes: No enlarged retroperitoneal or mesenteric lymph nodes. Urinary bladder: No mass or wall thickening. Reproductive: Unremarkable as visualized.? Fiducial markers noted in the prostate gland.? A Bones/joints: The regional skeleton shows a large sclerotic lesion within the L2 vertebral body highly suspicious for an osteoblastic metastasis given the history of prostate cancer. No other metastatic lesions are seen within the regional skeleton however. Soft tissues: Unremarkable. IMPRESSION: Sclerotic metastasis within the L2 vertebral body.? No other acute abnormality. ECG Data Attestation: I personally reviewed and interpreted this ECG (s) as follows: Interpretation: rate of 82, sinus, normal axis and no STEMI. HPI General Mode of arrival: ambulatory. Date/Time Provider Initiated Documentation: 04/14/22 16:41. Limitations to Documentation: no limitations. Information obtained by: patient. HPI Narrative: Patient is a 62-year-old male with a history of metastatic prostate cancer, CVA with residual right-sided weakness since 2013, hypertension, hyperlipidemia, prediabetes who presents for left-sided lateral rib pain for the past 5 days. He denies any known injury. He does have occasional cough. He states the pain is worse with movement, turning and when bouncing up and down in the car. He has not taken any medication for pain. Patient states he is currently undergoing treatment for his cancer in [place]. He states he is also on chronic steroids. He denies any recent fever, anterior chest pain, difficulty breathing, nausea, vomiting, diarrhea, abdominal pain. Related Data Home Medications Medication Instructions Recorded Confirmed cholecalciferol (vitamin D3) 25 25 mcg PO DAILY 06/11/20 11/20/21 mcg (1,000 unit) chewable tablet (Vitamin D3) ascorbate calcium (vitamin C) 500 1 gm PO DAILY 06/24/20 11/20/21 mg tablet melatonin 10 mg tablet 10 mg PO HS PRN 07/07/20 11/20/21 triamcinolone acetonide 0.1 % 1 applic topical BID #30 grams 07/12/21 11/20/21 topical cream clopidogrel 75 mg tablet (Plavix) 75 mg PO DAILY #90 tabs 07/13/21 11/20/21 tamsulosin 0.4 mg capsule 0.4 mg PO PRN PRN 08/29/21 11/20/21 amlodipine 10 mg tablet 10 mg PO DAILY #90 tabs 09/09/21 11/20/21 lisinopril 40 mg tablet 40 mg PO DAILY #90 tab-caps 09/09/21 11/20/21 ibuprofen 600 mg tablet 600 mg PO Q8H PRN pain #10 tabs 10/12/21 11/20/21 Previous Rx's Medication Instructions Recorded triamcinolone acetonide 0.1 % 1 applic topical BID #30 grams 07/12/21 topical cream clopidogrel 75 mg tablet (Plavix) 75 mg PO DAILY #90 tabs 07/13/21 amlodipine 10 mg tablet 10 mg PO DAILY #90 tabs 09/09/21 lisinopril 40 mg tablet 40 mg PO DAILY #90 tab-caps 09/09/21 ibuprofen 600 mg tablet 600 mg PO Q8H PRN pain #10 tabs 10/12/21 Allergies Allergy/AdvReac Type Severity Reaction Status Date / Time Penicillins Allergy Unknown Unknown Verified 11/20/21 09:50 venlafaxine HCl Allergy Unknown Unknown Verified 11/20/21 09:50 [From Effexor] latex Allergy Itching Verified 11/20/21 09:50 General Stated Complaint: Chest Pain PAU: 3 Review of Systems All systems reviewed & are unremarkable except as noted in HPI and below Constitutional Constitutional: Denies chills, Denies excessive sweating, Denies fatigue, Denies fever(s), Denies weakness and Denies weight loss Eyes Eyes: Reports system reviewed and no additional complaints, except as documented and Denies blurry vision ENT Ears, Nose, Mouth, and Throat: Denies vertigo, Denies dizziness, Denies otalgia, Denies nasal congestion, Denies sore throat and Denies throat swelling Cardiovascular Cardiovascular: Denies chest pain, Denies syncope, Denies rapid heart rate and Denies dyspnea Respiratory Respiratory: Denies chest congestion, Denies cough, Denies pain on inspiration and Denies dyspnea Gastrointestinal Gastrointestinal: Denies abdominal pain, Denies diarrhea and Denies vomiting Genitourinary Genitourinary: Denies hematuria, Denies dysuria and Denies flank pain Musculoskeletal Musculoskeletal: Denies back pain and Denies joint swelling Integumentary/Breasts Skin/Breast: Denies lesions and Denies rash Neurologic Neurologic: Denies behavioral changes, Denies confusion, Denies vertigo, Denies dizziness, Denies syncope, Denies localized weakness and Denies weakness Psychiatric Psychiatric: Denies behavioral changes, Denies confusion and Denies depression Endocrine Endocrine: Denies excessive sweating and Denies fatigue Hematologic/Lymphatic Hematologic/Lymphatic: Denies easy bruising and Denies lymphadenopathy Allergic/Immunologic Allergic/Immunologic: Denies throat swelling PFSH All Active Problems (Updated 04/14/22 @ 19:42 by Maria Guadalupe Navarrete DO) Chest wall pain (Acute) Medication intolerance (Chronic) Physical and philosophical intolerance of medications .. Prefers no statin, despite Hx CVA. At risk of fracture due to osteoporosis (Acute) Due to prostate cancer Tx ... Listed on screening request from [facility] per pt. Vitamin D deficiency (Acute) Hypertension (Chronic) Prediabetes (Acute) Dyslipidemia (Chronic) Prostate cancer (Chronic) Possible (+) findings, Dec 2021. Cancer free per pt report, 11/2020. Jan 2021 check in @ [facility]. 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 1 3-4-5 weeks Chondromalacia patellae of right knee (Acute) Right knee pain (Acute) Pain w/ ambulation, new fluid collection. x 1 month, with exacerbation during walk yesterday .. Encounter for rehabilitation (Acute) a. From an infarction. Elevated prostate specific antigen (PSA) (Acute 10/30/16) Right groin pain (Acute) Nocturia (Acute) Insomnia disorder related to known organic factor (Acute) Depression (Chronic) Anxiety (Chronic) Medical History (Updated 04/14/22 @ 19:42 by Maria Guadalupe Navarrete DO) Chemotherapy-induced fatigue leading to deconditioning Diverticula of colon Spasticity (02/22/15) Presumed post CVA (2013) Tubular adenoma (~01/2021) Surgical History Colonoscopy - IV Sedation (10/07/15) DR.TERRY BURGOS History of colonoscopy with polypectomy (~02/10/21) Family History Brother Anxiety Father Diabetes Other Hypertension Social History Smoking/Tobacco Use Status: Never Smoking risk assessment performed?: Yes Alcohol Intake: current Alcohol Intake frequency: 0-2 drinks per day Drug use: Never Substance use type: does not use Adopted: No Caregiver/Support person: No Foster care: No Household members: family Do you need help understanding health information?: Rarely current occupation: Unemployed Sexually active: No Do you think of yourself as: lesbian/kc/homosexual Current gender identity: male Do you feel safe at home: Yes Do you feel safe in your relationship?: Yes Exam Const General: cooperative and healthy appearing Orientation: alert and awake HENMT Head: normal to inspection Ears: hearing grossly normal bilaterally, external ears normal and TM's normal bilaterally General nose exam: external nose normal Face and sinus: normal facial exam Mouth: oral mucosae normal Teeth and gingiva: dentition normal Throat: posterior oropharynx normal Eyes General: appearance normal, both eyes and all related structures Eyelids: eyelids normal Pupils: PERRL EOM: EOM intact bilaterally Neck Neck: normal visual inspection Lymphatic: no lymphadenopathy noted Chest Chest: normal inspection of the chest Chest/axillae images: 1. Localized area of tenderness to left lateral inferior ribs. No evidence of rash, ecchymosis, erythema, edema or step-off. Resp Effort & Inspection: normal respiratory effort and able to speak in complete sentences Auscultation: clear to auscultation bilaterally Cardio Rate: regular rate Rhythm: regular rhythm GI Inspection: normal to inspection Palpation: soft, not firm, no guarding, no hepatosplenomegaly, no masses and nontender Auscultation: normal bowel sounds Back/Spine/Pelvis Back: no CVA tenderness Skin General skin exam: no rashes or lesions noted Neuro General: patient alert and patient awake Cognition: normal cognition Speech: speech normal Gait: normal gait Motor: muscle tone normal throughout Sensory Exam: no sensory deficits noted Extrem General: normal to inspection, full ROM and capillary refill normal Psych Appearance: grossly normal Mental Status: mental status grossly normal Speech and Movement: speech and movement normal Affect: normal affect Thought Process: normal Course Vital Signs Vital signs: Vital Signs Temperature 99.3 F 04/14/22 16:44 Pulse 88 04/14/22 16:44 Respiratory Rate 18 04/14/22 16:44 Blood Pressure 149/77 H 04/14/22 16:44 Pulse Oximetry 97 04/14/22 16:44 Temperature 99.3 F 04/14/22 16:44 Temperature Source Tympanic 04/14/22 16:44 Pulse 88 04/14/22 16:44 Respiratory Rate 18 04/14/22 16:44 Respiratory Effort 04/14/22 16:47 Blood Pressure 149/77 H 04/14/22 16:44 Blood Pressure Position Supine 04/14/22 16:44 Pulse Oximetry 97 04/14/22 16:44 Oxygen Delivery Method Room Air 04/14/22 16:44 Oxygen Flow Rate 0 04/14/22 16:44 Pain Level 3 04/14/22 16:44
--- NOTE | 2022-04-14 18:12 | DI.CT_ITS ---
Exam(s) CT CHEST/ABD/PEL WO EXAM: CT CHEST/ABD/PEL WO CLINICAL HISTORY: L lateral rib pain, h/o metastatic prostate ca. TECHNIQUE: Imaging Protocol: Axial computed tomography images with coronal and sagittal reformatted images were created and reviewed CONTRAST MATERIAL: Intravenous: none Oral: None FINDINGS: CHEST: LUNGS: No infiltrates nor pulmonary nodules. No pleural effusions. No significant focal findings in the trachea and mainstem bronchi.. MEDIASTINUM: No obvious hilar nor mediastinal adenopathy. Visualized thyroid unremarkable. CARDIAC: Heart size is normal. There is no pericardial effusion.Caliber of the thoracic aorta is wit hin normal limits. OSSEOUS: No significant osseous lesions.. ABDOMEN: There is no ascites. LIVER: There are no obvious focal hepatic lesions evident of this noninfused study. GALLBLADDER/BILIARY: No obvious gallbladder pathology. CBD is not dilated. PANCREAS: No evidence of obvious pancreatic mass nor dilatation of the pancreatic duct. SPLEEN: Spleen is not enlarged. No obvious intrasplenic lesions. ADRENALS: There are no significant adrenal masses. KIDNEYS: No calculi nor hydronephrosis. No obvious solid renal masses. No cysts evident. ABDOMINAL AORTA: Abdominal aorta is not enlarged. LYMPH NODES: There is no retroperitoneal nor para-aortic adenopathy. ABDOMINAL WALL/GI: No evidence of significant anterior abdominal wall nor inguinal hernia. No evidence of bowel obstruction. PELVIS: LYMPH NODES: There is no intrapelvic nor inguinal adenopathy. GI: No evidence of appendicitis.No evidence of sigmoid diverticulitis. URINARY BLADDER: No calculi nor obvious masses evident REPRODUCTIVE: There has been interval prostatectomy. Possibly some remaining prostate gland. Surgic al clips in this region noted. There is no obturator adenopathy evident. No adenopathy around the i liac chains. OSSEOUS: There is a large sclerotic area now evident in the body of the L2 vertebra, not evident on t he prior 2018 study and consistent with sclerotic metastatic disease. There does not appear to be in volvement of other vertebral bodies in the lumbosacral spine. However, there is small sclerotic dens ities evident in the inferior aspect of T9 and upper aspect of T7 vertebral bodies which are suspicio us for developing osseous metastatic disease at these levels. IMPRESSION: 1. Compared to the prior CT scan of September 2018 there has been interval prostatectomy. Surgical cli ps are seen in the prostate bed. There appears to be some remaining prostate tissue. No obturator a denopathy nor adenopathy elsewhere in the abdomen and pelvis. No free fluid 2. Large sclerotic metastatic lesion noted in the L2 vertebral body. This does not extend into the p edicles. 3. Smaller sclerotic densities are noted in inferior aspect of T9 and superior aspect of T7 vertebral bodies, possibly early metastatic osseous disease at these levels. No osseous lesions evident in the remainder of the bones of the pelvis and hips and no obvious sclero tic lesions evident in the rib cages. RADIATION DOSE DELIVERED: 1,002.07mGy.cm Total DLP DATA REPOSITORY: All CT scans at this facility are submitted to the National Radiology Data Registry (NRDR) Dose Index Registry (DIR) with the [employer] (A[employer]). RADIATION OPTIMIZATION: All CT scans at this facility use at least one of these dose optimization te chniques: automated exposure control; mA and/or kV adjustment per patient size (includes targeted exa ms where dose is matched to clinical indication); or iterative reconstruction.
[2022-04-14] MEDS: oxyCODONE 5 MG TAB PO (18:22)
--- NOTE | 2022-04-14 18:29 | DI.VRAD_ITS ---
PROCEDURE INFORMATION: Exam: CT Chest Without Contrast; Diagnostic Exam date and time: 04/14/2022 6:08 PM Age: 62 years old Clinical indication: Other: L lateral rib pain, h/o metastatic prostate CA; Left-sided; Additional info: Contingency protocol TECHNIQUE: Imaging protocol: Diagnostic computed tomography of the chest without contrast. COMPARISON: 1. CT Abdomen^ROUTINE ABDOMEN PELVIS ARTERIAL VENOUS (Adult) 16/09/2018 08:57 2. CR XR CHEST 2V PA LATERAL 10/08/2020 15:43 FINDINGS: Thyroid: Normal. No significant nodule or enlargement. Trachea: Normal. Lungs: Unremarkable. No consolidation. No nodule or mass. Pleural spaces: Unremarkable. No pneumothorax. No pleural effusion or thickening. Heart: No cardiomegaly. No pericardial effusion. Coronary arteries: No significant calcification. Esophagus: No esophageal mass or wall thickening. No hiatal hernia. Mediastinal space: Normal. No mass or adenopathy. Lymph nodes: No enlarged mediastinal or axillary lymph nodes. Vasculature: There is mild enlargement of the ascending aorta to 3.9 cm. Coronary artery stents are noted. Bones/joints: Unremarkable. No acute fracture. Soft tissues: Unremarkable. Other findings: Visualized upper abdomen is unremarkable. IMPRESSION: No acute abnormality. No evidence of metastatic disease within the thorax. PROCEDURE INFORMATION: Exam: CT Abdomen And Pelvis Without Contrast Exam date and time: 04/14/2022 6:08 PM Age: 62 years old Clinical indication: Other: L lateral rib pain, h/o metastatic prostate CA; Left-sided; Additional info: Contingency protocol TECHNIQUE: Imaging protocol: Computed tomography of the abdomen and pelvis without contrast. COMPARISON: 1. CT Abdomen^ROUTINE ABDOMEN PELVIS ARTERIAL VENOUS (Adult) 16/09/2018 08:57 2. CR XR CHEST 2V PA LATERAL 10/08/2020 15:43 FINDINGS: Lungs: Visualized lung bases are clear. Liver: Normal. No mass or intrahepatic biliary ductal dilatation. Gallbladder and bile ducts: Normal. No calcified stones. No ductal dilation. Pancreas: Normal. No mass or ductal dilation. Spleen: Normal. No splenomegaly. Adrenal glands: Normal. No mass. Kidneys and ureters: Normal. No hydronephrosis, calculus, cyst or mass. Stomach and bowel: Unremarkable. No significant dilatation or obstruction. No mucosal thickening or visible mass. Appendix: No evidence of appendicitis. Intraperitoneal space: Unremarkable. No free air. No significant fluid collection. Vasculature: Aorta is atherosclerotic but nonaneurysmal. Lymph nodes: No enlarged retroperitoneal or mesenteric lymph nodes. Urinary bladder: No mass or wall thickening. Reproductive: Unremarkable as visualized. Fiducial markers noted in the prostate gland. A Bones/joints: The regional skeleton shows a large sclerotic lesion within the L2 vertebral body highly suspicious for an osteoblastic metastasis given the history of prostate cancer. No other metastatic lesions are seen within the regional skeleton however. Soft tissues: Unremarkable. IMPRESSION: Sclerotic metastasis within the L2 vertebral body. No other acute abnormality. Dictated and Authenticated by: Luis A Dunaway MD. Ordering:MARIAJOSE Lerma MD
== END 2022-04-14 19:51 | disposition home or self-care (01) ==
PROVIDERS: Emergency Provider Physician Assistant; PCP Nurse Practitioner Family
DX: R07.89 Other chest pain (principal); R07.9 Chest pain, unspecified
CPT/HCPCS: 71250; 93005; 99284; 74176; 93010; 99283

== ENCOUNTER 2022-04-15 10:02 | Emergency (ER) | payer MEDICARE, SELFPAY ==
[2022-04-15 10:08] VITALS: BP 153/74; PULSE 63; RESP 16; TEMP 36; O2SAT 98
--- NOTE | 2022-04-15 10:18 | ED.GENADUL_ITS ---
Discharge Plan Disposition Patient Disposition: HOME Condition: Improving Discharge Details Clinical Impression: Rib pain on left side Primary Care Provider: FELIX CARMEN ED Provider: Maria Guadalupe Navarrete Home Meds and New Rx's Prescriptions: New diazepam 5 mg tablet 5 mg PO TID PRN (Reason: muscle spasm) Qty: 10 0RF Continued amlodipine 10 mg tablet 10 mg PO DAILY Qty: 90 3RF Hold Instructions: Changed by Provider lisinopril 40 mg tablet 40 mg PO DAILY Qty: 90 3RF triamcinolone acetonide 0.1 % cream 1 applic topical BID Qty: 30 0RF Rx Instructions: apply to rash area every 12 hours x 10 days ibuprofen 600 mg tablet 600 mg PO Q8H PRN (Reason: pain) Qty: 10 0RF Rx Instructions: Trial twice a day x 3 days. TAKE WITH FOOD (cheese/peanut butter) ascorbate calcium (vitamin C) 500 mg tablet 1 gm PO DAILY melatonin 10 mg tablet 10 mg PO HS PRN clopidogrel [Plavix] 75 mg tablet 75 mg PO DAILY Qty: 90 3RF cholecalciferol (vitamin D3) [Vitamin D3] 25 mcg (1,000 unit) Tablet,Chewable 25 mcg PO DAILY tamsulosin 0.4 mg capsule 0.4 mg PO PRN PRN Discharge Instructions Instructions: Chest Wall Pain (ED) Additional Instructions: Your lab work today is reassuring and shows no evidence of acute concerning or significant findings. You can continue to use [id number] topical pain patches to the affected area as needed and directed. You can take Tylenol [id number] as needed and directed for pain. A prescription for the muscle relaxer Valium has been sent electronically to your pharmacy. Take this as needed and directed for pain. If you have no relief with the Valium, you can take the oxycodone you were given yesterday in the emergency department as needed and directed for pain. Take caution in that the combination of Valium and oxycodone can cause a decrease in your respirations, dizziness, or drowsiness and be sure to not drive or operate heavy machinery while taking both of these medications. You have been placed on care management's list to arrange for a follow-up appointment with a provider from your primary care doctor's office for reevaluation this week. Return immediately to the emergency department if you develop any worsening or new concerning symptoms. Discharge Data Discharge Date/Time-TO BE ENTERED AT DEPARTURE: 04/15/22 12:50 Discharge Physician: Maria Guadalupe Navarrete Medical Decision Making 62-year-old male with a history of metastatic prostate cancer to bone on chronic Zytiga and prednisone, hypertension, CVA on Plavix presents for left lateral inferior rib pain for the past 6 days that is worse with movement and to palpation. Seen here yesterday for same complaint and had CT chest and abdomen pelvis without IV contrast due to the global IV contrast shortage which noted an L2 vertebral body metastatic lesion but otherwise was unremarkable. His history and presentation yesterday and today do not appear consistent with PE as he has no complaints anterior chest pain, shortness of breath, dizziness with normal heart rate, respiratory rate and oxygen saturation. His pain is reproducible with movement and tender to palpation. There is no evidence of rash, cellulitis or trauma. Discussed with patient at length that I do not see an indication for CT with IV contrast at this time, considering his history of prostate cancer, will obtain screening labs, D-dimer, give a dose of oxycodone and Valium and reassess. Labs reviewed and unremarkable for concerning findings. White blood cell count 2.91 which may be suspected as he is currently under treatment for his prostate cancer. Hemoglobin 12.8. Normal electrolytes. Troponin negative. Lipase normal. D-dimer within normal limits. Patient reassessed and he states his pain is improved and he feels comfortable going home. Patient placed on care management list to arrange for follow-up appointment with his primary care doctor this week for reevaluation. A prescription for Valium was sent electronically to his pharmacy to take as needed and directed for pain. He was advised of the risks of taking Valium with oxycodone due to respiratory depression, drowsiness, dizziness with risk of fall and injury. Advised to apply ice to the affected area several times daily for 20 minutes at a time. Usual and customary return precautions given prior to discharge. Medical Records Medical records reviewed: Yes I reviewed the patient's medical records. Lab Data Lab results reviewed: Yes I reviewed the patient's lab results. Labs: Laboratory Tests Range/Units 04/15/22 04/15/22 04/15/22 11:24 11:24 11:24 WBC (4.4-10.8) 10^3/uL 2.91 L RBC (4.36-5.78) 10^6/uL 4.29 L Hgb (13.5-17.5) g/dL 12.8 L Hct (40.0-50.0) % 37.3 L MCV (80-95) fL 87 MCH (27.0-33.0) pg 29.8 MCHC (32.0-36.0) % 34.3 RDW (11.8-14.1) % 12.9 Plt Count (130-400) 10^3/uL 143 MPV (8.0-11.0) fL 9.7 Immature Gran % 1.0 Neutrophils % 65.0 Lymphocytes % 20.6 Monocytes % 10.7 Eosinophils % 1.7 Basophils % 1.0 Nucleated RBC % (0.0-0.3) % 0.0 Absolute Neutrophils (1.2-6.7) 10^3/uL 1.89 Absolute Lymphocytes (1.2-3.4) 10^3/uL 0.60 L Absolute Monocytes (0.1-0.8) 10^3/uL 0.31 Absolute Eosinophils (0.0-0.7) 10^3/uL 0.05 Absolute Basophils (0.0-0.2) 10^3/uL 0.03 D-Dimer (<500) ng/mlFEU 450 Sodium (136-145) mmol/L 141 Potassium (3.5-5.1) mmol/L 4.1 Chloride (98-107) mmol/L 107 Carbon Dioxide (21.0-32.0) mmol/L 26.0 Anion Gap (3-11) mmol/L 8.0 BUN (7-18) mg/dL 20 H Creatinine (0.70-1.30) mg/dL 1.1 Estimated GFR/1.73 m2 (mL/min/1.73m2) >= 60.00 Glucose (74-106) mg/dL 163 H Calcium (8.5-10.1) mg/dL 8.8 Magnesium (1.8-2.4) mg/dL 2.4 Total Bilirubin (0.2-1.0) mg/dL 0.6 AST (15-37) U/L 12 L ALT (16-63) U/L 22 Alkaline Phosphatase (46-116) U/L 149 H Troponin I (<or=60) ng/L < 50 Total Protein (6.4-8.2) g/dL 6.7 Albumin (3.4-5.0) g/dL 3.8 Lipase (73-393) U/L 325 HPI General Mode of arrival: ambulatory . Date/Time Provider Initiated Documentation: 04/15/22 10:03 . Limitations to Documentation: no limitations . Information obtained by: patient . HPI Narrative: Patient is a 62-year-old male with a history of metastatic prostate cancer to bone, hypertension, CVA on clopidogrel who presents for left lateral rib pain for the last 6 days. Patient was seen here yesterday for the same complaint and diagnosed with likely musculoskeletal pain and sent home with oxycodone. He had a CT chest abdomen and pelvis without contrast due to IV contrast shortages as his presentation did not appear consistent with ACS or PE at an it was unrem arkable other than the L2 vertebral body metastatic lesion. Patient was given oxycodone to go last night but states he has not taken it since then because he did not want to mask the pain. He states getting out of bed this morning the pain was severe and is mainly worse with touch and movement. Patient states he regularly receives radiation treatment for his prostate cancer at a number in [place]. He states he last received radiation treatment in January 2022. He states he is on Zytiga and prednisone as part of his treatment plan. He denies any known injury, fever, cough, anterior chest pain, shortness of breath, nausea, vomiting, dizziness, rash, abdominal pain, urinary symptoms or change in appetite. Related Data Home Medications Medication Instructions Recorded Confirmed cholecalciferol (vitamin D3) 25 25 mcg PO DAILY 06/11/20 04/15/22 mcg (1,000 unit) chewable tablet (Vitamin D3) ascorbate calcium (vitamin C) 500 1 gm PO DAILY 06/24/20 04/15/22 mg tablet melatonin 10 mg tablet 10 mg PO HS PRN 07/07/20 04/15/22 triamcinolone acetonide 0.1 % 1 applic topical BID #30 grams 07/12/21 04/15/22 topical cream clopidogrel 75 mg tablet (Plavix) 75 mg PO DAILY #90 tabs 07/13/21 04/15/22 tamsulosin 0.4 mg capsule 0.4 mg PO PRN PRN 08/29/21 04/15/22 amlodipine 10 mg tablet 10 mg PO DAILY #90 tabs 09/09/21 04/15/22 lisinopril 40 mg tablet 40 mg PO DAILY #90 tab-caps 09/09/21 04/15/22 ibuprofen 600 mg tablet 600 mg PO Q8H PRN pain #10 tabs 10/12/21 04/15/22 diazepam 5 mg tablet 5 mg PO TID PRN muscle spasm #10 04/15/22 tabs Previous Rx's Medication Instructions Recorded triamcinolone acetonide 0.1 % 1 applic topical BID #30 grams 07/12/21 topical cream clopidogrel 75 mg tablet (Plavix) 75 mg PO DAILY #90 tabs 07/13/21 amlodipine 10 mg tablet 10 mg PO DAILY #90 tabs 09/09/21 lisinopril 40 mg tablet 40 mg PO DAILY #90 tab-caps 09/09/21 ibuprofen 600 mg tablet 600 mg PO Q8H PRN pain #10 tabs 10/12/21 diazepam 5 mg tablet 5 mg PO TID PRN muscle spasm #10 04/15/22 tabs Allergies Allergy/AdvReac Type Severity Reaction Status Date / Time Penicillins Allergy Unknown Unknown Verified 04/15/22 10:13 venlafaxine HCl Allergy Unknown Unknown Verified 04/15/22 10:13 [From Effexor] latex Allergy Itching Verified 04/15/22 10:13 General Stated Complaint: Recheck PAU: 4 Review of Systems All systems reviewed & are unremarkable except as noted in HPI and below Constitutional Constitutional: Denies chills, Denies excessive sweating, Denies fatigue, Denies fever(s), Denies weakness and Denies weight loss Eyes Eyes: Reports system reviewed and no additional complaints, except as documented and Denies blurry vision ENT Ears, Nose, Mouth, and Throat: Denies vertigo, Denies dizziness, Denies otalgia, Denies nasal congestion, Denies sore throat and Denies throat swelling Cardiovascular Cardiovascular: Denies chest pain, Denies syncope, Denies rapid heart rate and Denies dyspnea Respiratory Respiratory: Denies chest congestion, Denies cough, Denies pain on inspiration and Denies dyspnea Gastrointestinal Gastrointestinal: Denies abdominal pain, Denies diarrhea and Denies vomiting Genitourinary Genitourinary: Denies hematuria, Denies dysuria and Denies flank pain Musculoskeletal Musculoskeletal: Denies back pain and Denies joint swelling Comments: L lateral rib pain Integumentary/Breasts Skin/Breast: Denies lesions and Denies rash Neurologic Neurologic: Denies behavioral changes, Denies confusion, Denies vertigo, Denies dizziness, Denies syncope, Denies localized weakness and Denies weakness Psychiatric Psychiatric: Denies behavioral changes, Denies confusion and Denies depression Endocrine Endocrine: Denies excessive sweating and Denies fatigue Hematologic/Lymphatic Hematologic/Lymphatic: Denies easy bruising and Denies lymphadenopathy Allergic/Immunologic Allergic/Immunologic: Denies throat swelling PFSH All Active Problems (Updated 04/15/22 @ 12:41 by Maria Guadalupe Navarrete, DO) Chest wall pain (Acute) Rib pain on left side (Acute) Medication intolerance (Chronic) Physical and philosophical intolerance of medications .. Prefers no statin, despite Hx CVA. At risk of fracture due to osteoporosis (Acute) Due to prostate cancer Tx ... Listed on screening request from [facility] per pt. Vitamin D deficiency (Acute) Hypertension (Chronic) Prediabetes (Acute) Dyslipidemia (Chronic) Prostate cancer (Chronic) Possible (+) findings, Dec 2021. Cancer free per pt report, 11/2020. Jan 2021 check in @ [facility]. 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 1 3-4-5 weeks Chondromalacia patellae of right knee (Acute) Right knee pain (Acute) Pain w/ ambulation, new fluid collection. x 1 month, with exacerbation during walk yesterday .. Encounter for rehabilitation (Acute) a. From an infarction. Elevated prostate specific antigen (PSA) (Acute 10/30/16) Right groin pain (Acute) Nocturia (Acute) Insomnia disorder related to known organic factor (Acute) Depression (Chronic) Anxiety (Chronic) Medical History (Updated 05/15/22 @ 12:41 by Maria Guadalupe Navarrete DO) Chemotherapy-induced fatigue leading to deconditioning Diverticula of colon Spasticity (02/22/15) Presumed post CVA (2013) Tubular adenoma (~01/2021) Surgical History Colonoscopy - IV Sedation (10/07/15) DR.TERRY BURGOS History of colonoscopy with polypectomy (~02/10/21) Family History Brother Anxiety Father Diabetes Other Hypertension Social History Smoking/Tobacco Use Status: Never Smoking risk assessment performed?: Yes Alcohol Intake: current Alcohol Intake frequency: 0-2 drinks per day Drug use: Never Substance use type: does not use Adopted: No Caregiver/Support person: No Foster care: No Household members: family Do you need help understanding health information?: Rarely current occupation: Unemployed Sexually active: No Do you think of yourself as: lesbian/kc/homosexual Current gender identity: male Do you feel safe at home: Yes Do you feel safe in your relationship?: Yes Exam Const General: cooperative and healthy appearing Orientation: alert and awake HENMA Head: normal to inspection Ears: hearing grossly normal bilaterally and external ears normal General nose exam: external nose normal Face and sinus: normal facial exam Mouth: oral mucosae normal Teeth and gingiva: dentition normal Throat: posterior oropharynx normal Eyes General: appearance normal, both eyes and all related structures Eyelids: eyelids normal Pupils: PERRL EOM: EOM intact bilaterally Neck Neck: normal visual inspection Lymphatic: no lymphadenopathy noted Chest Chest: normal inspection of the chest Chest/axillae images: 1. Localized area of tenderness to palpation to left lateral inferior ribs. There is no erythema, edema, ecchymosis, rash or lesions. Resp Effort & Inspection: normal respiratory effort and able to speak in complete sentences Auscultation: clear to auscultation bilaterally Cardio Rate: regular rate Rhythm: regular rhythm GI Inspection: normal to inspection Palpation: soft, not firm, no guarding, no hepatosplenomegaly, no masses and nontender Auscultation: hypoactive bowel sounds Back/Spine/Pelvis Back: no CVA tenderness Skin General skin exam: no rashes or lesions noted Neuro General: patient alert and patient awake Cognition: normal cognition Speech: speech normal Gait: normal gait Motor: muscle tone normal throughout Sensory Exam: no sensory deficits noted Extrem General: normal to inspection, full ROM and capillary refill normal Psych Appearance: grossly normal Mental Status: mental status grossly normal Speech and Movement: speech and movement normal Affect: normal affect Thought Process: normal Course Vital Signs Vital signs: Vital Signs Temperature 96.8 F L 04/15/22 10:08 Pulse 63 04/15/22 10:08 Respiratory Rate 16 04/15/22 10:08 Blood Pressure 153/74 H 04/15/22 10:08 Pulse Oximetry 98 04/15/22 10:08 Temperature 96.8 F L 04/15/22 10:08 Temperature Source Temporal Artery Scan 04/15/22 10:08 Pulse 63 04/15/22 10:08 Respiratory Rate 16 04/15/22 10:08 Respiratory Effort 04/15/22 10:08 Blood Pressure 153/74 H 04/15/22 10:08 Blood Pressure Position Sitting 04/15/22 10:08 Pulse Oximetry 98 04/15/22 10:08 Oxygen Delivery Method Room Air 04/15/22 10:08 Oxygen Flow Rate 0 04/15/22 10:08 Pain Level 2 04/15/22 10:08
[2022-04-15] MEDS: diazePAM 5 MG TAB PO (11:15)
[2022-04-15] MEDS: oxyCODONE 5 MG TAB PO (11:15)
[2022-04-15 11:27] LABS: Abs Immature Grans 0.03 10^3/uL (0.0-0.06); Absolute Basophil Count 0.03 10^3/uL (0.0-0.2); Absolute Eosinophil Count 0.05 10^3/uL (0.0-0.7); Absolute Monocyte Count 0.31 10^3/uL (0.1-0.8); Absolute Neutrophil Count 1.89 10^3/uL (1.2-6.7); Eosinophils % 1.7; HCT 37.3 % (40.0-50.0); HGB 12.8 g/dL (13.5-17.5); Lymphocytes % 20.6; MCH 29.8 pg (27.0-33.0); MCHC 34.3 % (32.0-36.0); MCV 87 fL (80-95); MPV 9.7 fL (8.0-11.0); Monocytes % 10.7; Platelet Count 143 10^3/uL (130-400); RBC 4.29 10^6/uL (4.36-5.78); RDW 12.9 % (11.8-14.1); RDW-SD 40.7 fL; WBC 2.91 10^3/uL (4.4-10.8)
[2022-04-15 11:42] LABS: ALT 22 U/L (16-63); AST 12 U/L (15-37); Albumin 3.8 g/dL (3.4-5.0); Alkaline Phosphatase 149 U/L (46-116); BUN 20 mg/dL (7-18); Bilirubin, Total 0.6 mg/dL (0.2-1.0); CREATININE 1.1 mg/dL (0.70-1.30); Calcium 8.8 mg/dL (8.5-10.1); Chloride 107 mmol/L (98-107); Glucose 163 mg/dL (74-106); Lipase 325 U/L (73-393); Magnesium 2.4 mg/dL (1.8-2.4); Potassium 4.1 mmol/L (3.5-5.1); Sodium 141 mmol/L (136-145); Total Protein 6.7 g/dL (6.4-8.2); Troponin I < 50 ng/L (<or=60)
[2022-04-15 11:58] LABS: D-Dimer 450 ng/mlFEU (<500)
--- NOTE | 2022-04-15 12:47 | NUR.NOTE ---
Referral faxed to [facility] for left rib pain, this week. Parisa Tavarez
== END 2022-04-15 12:50 | disposition home or self-care (01) ==
PROVIDERS: Emergency Provider Physician Assistant; PCP Nurse Practitioner Family
DX: R10.9 Unspecified abdominal pain (principal); R07.89 Other chest pain
CPT/HCPCS: 36415; 80053; 83690; 99283; 83735; 84484; 85025; 85379

== ENCOUNTER 2022-07-25 15:56 | Emergency (ER) | payer MEDICARE, SELFPAY ==
[2022-07-25] VITALS (33 sets, daily range): BP systolic 135–165; BP diastolic 76–97; PULSE 54–75; RESP 12–29; TEMP 36.7; O2SAT 95–98
--- NOTE | 2022-07-25 16:15 | RT.EKG_ITS ---
APPROVED REPORT Exam: Resting ECG Reason for Exam: dizzy Patient Location: E HR:68 bpm ECG Measurements Heart Rate 68 AXIS GA 142 P 30 QRSd 88 QRS -24 QT 422 T -1 QTc 448 Conclusion Sinus rhythm...normal P axis, V-rate 60- 99
--- NOTE | 2022-07-25 16:15 | DI.CT_ITS ---
Exam(s) CT BRAIN NECK CTA EXAM: CT BRAIN NECK CTA CLINICAL HISTORY: hx of stroke, now dizzy with headache. TECHNIQUE: Imaging Protocol: Axial CT angiography was performed with multi-slice acquisition and mu lti-planar and/or 3D reconstructions. CONTRAST MATERIAL: Intravenous: Omnipaque 350 Contrast volume:structured data in ml COMPARISON: CT CT CHEST/ABD/PEL WO from 04/14/2022 FINDINGS: CT angiography of the cervical cranial region was performed according to the usual protocol with intr avenous infusion of 85 cc of Omnipaque 350.. Initial noncontrast scanning of the head is unremarkable except for mild cerebral atrophy and probabl e old tiny right cerebellar infarct. Visualized lung apices are clear. Visualized portions of thoracic aorta and pulmonary arterial circul ation are unremarkable. There is no evidence of a cervical mass or adenopathy. The tracheal laryngeal structures appear intact. The common, internal, and external carotid arteries are within normal limits in the cervical region w ith no evidence of aneurysm, stenosis, or dissection. The vertebral arteries are unremarkable in appearance in the cervical region with no evidence of aneu rysm, stenosis, or dissection. Intracranial portions of the internal carotid arteries appear normal with no evidence of aneurysm, st enosis, or dissection. Intracranial vertebral arteries and basilar artery appear normal with no evidence of aneurysm, stenos is or dissection. No aneurysm identified in the region of the [id number]. The anterior, middle, and posterior cer ebral arteries and major branches appear intact with no evidence of aneurysm, stenosis, or dissection . No enhancing brain lesion identified on 5 minutes delayed images.. IMPRESSION: Negative CT angiography of the cervical cranial region. RADIATION DOSE DELIVERED: 2,069.65mGy.cmTotal DLP 2,069.65mGy.cm Total DLP !Error CTDIvol DATA REPOSITORY: All CT scans at this facility are submitted to the National Radiology Data Registry (NRDR) Dose Index Registry (DIR) with the [employer] ([employer]). RADIATION OPTIMIZATION: All CT scans at this facility use at least one of these dose optimization te chniques: automated exposure control; mA and/or kV adjustment per patient size (includes targeted exa ms where dose is matched to clinical indication); or iterative reconstruction.
--- NOTE | 2022-07-25 16:47 | ED.GENADUL_ITS ---
Discharge Plan Disposition Patient Disposition: HOME Condition: Good Discharge Details Chief Complaint: Dizzy/Sync Clinical Impression: Dizziness, Headache Primary Care Provider: FELIX CARMEN ED Provider: Dani Casillas Home Meds and New Rx's Prescriptions: No Action amlodipine 10 mg tablet 10 mg PO DAILY Qty: 90 3RF Hold Instructions: Changed by Provider lisinopril 40 mg tablet 40 mg PO DAILY Qty: 90 3RF triamcinolone acetonide 0.1 % cream 1 applic topical BID Qty: 30 0RF Rx Instructions: apply to rash area every 12 hours x 10 days ibuprofen 600 mg tablet 600 mg PO Q8H PRN (Reason: pain) Qty: 10 0RF Rx Instructions: Trial twice a day x 3 days. TAKE WITH FOOD (cheese/peanut butter) ascorbate calcium (vitamin C) 500 mg tablet 1 gm PO DAILY melatonin 10 mg tablet 10 mg PO HS PRN clopidogrel [Plavix] 75 mg tablet 75 mg PO DAILY Qty: 90 3RF cholecalciferol (vitamin D3) [Vitamin D3] 25 mcg (1,000 unit) Tablet,Chewable 25 mcg PO DAILY diazepam 5 mg tablet 5 mg PO TID PRN (Reason: muscle spasm) Qty: 10 0RF sertraline [Zoloft] 25 mg tablet 1 tab PO DAILY Label Comments: Take 1 tablet by mouth once a day tamsulosin 0.4 mg capsule 0.4 mg PO PRN PRN Discharge Instructions Instructions: Dizziness (ED), General Headache (ED) Additional Instructions: At this time your laboratory work-up is reassuring. The markers for your heart showed no evidence of significant abnormality. Your renal function and liver function is normal. Your electrolytes are normal. Your platelets and hemoglobin level are stable. Your CAT scan shows no evidence of stroke, tumor, mass, or bleed. Please take Tylenol as needed for pain for any headache that recurs. Please drink plenty of fluids and stay well-hydrated. If you notice any worsening of your symptoms, or any new symptoms such as vomiting, diarrhea, fever, chills, shortness of breath, chest pain, numbness, weakness, or fainting , please return immediately to the emergency department for reevaluation. Please follow up with your primary care provider as soon as possible for reassessment and reevaluation. As always, it was a pleasure participating in your medical care today. 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 He describes it as mild and generalized. He has also noticed some associated dizziness. He describes it as an unsteadiness and feeling slightly off. He denies any room spinning sensation. Symptoms are made worse when he tries to get up and walk around. He denies any new weakness. He denies any chest pain or shortness of breath. He denies any falls or trauma recently. He denies having had symptoms like this before. Headache was gradual in onset. He describes it as very mild now. The patient denies any headache red flags of worst headache of life, thunderclap headache, neck pain, fever, chills, concerning family history of polycystic kidney disease, Marfan syndrome, Cindy- Danlos syndrome, abdominal aortic aneurysm, aortic dissection, or intracranial aneurysm. He has no other complaints at this time. No other modifying factors. Exam demonstrates a mild chronic right-sided weakness which is unchanged per the patient. He does have fatigable horizontal unidirectional left-sided nystagmus, positive head impulse test to the left. Negative test of skew. No rotatory or vertical nystagmus. No nuchal rigidity. No antalgic gait. Clinical history and symptoms appear inconsistent with aneurysm or intracranial bleed. There does not appear to be any focal new deficits. Potentially he could have metastases that are causing his current headache, but differential also includes migraine, or muscle spasm secondary to his old stroke. Right now he describes the headache is very mild and does not want anything for pain in particular. No other complaints at this time. We will get a CT scan of the head neck and evaluate with angiography, we will give meclizine, gently rehydrate, monitor closely and reassess. 8:13 PM Laboratory work-up is returned normal EKG stable, troponin normal, electrolytes normal. Patient did refuse meclizine here. Headache is mild to absent. Repeat neurologic exam shows no signs of no focal neurologic deficit. CT/CTA have both returned negative for acute process. No evidence of significant stenosis or other abnormality. On reassessment patient is stable for discharge. At this time symptoms are inconsistent with bleed, aneurysmal hemorrhage, meningitis, new stroke, or clinical evidence of cerebellar infarcts. Patient does not want meclizine at this time. Will recommend Tylenol use for home use if he does develop recurrence of the headache. Recommend close follow-up with PCP. If the patient has persistent symptoms, I do feel that discussion for potential MRI on an outpatient basis may be indicated. No emergent indication noted at this time. Will recommend return if he has worsening of his symptoms. I have extensively reviewed the treatment plan and discharge instructions with the patient and their family. I have addressed all patient concerns at this time. The patient and family was made aware of what symptoms to monitor for that would warrant a return to the emergency department. Discussed the plan with the patient and family, they demonstrate verbal understanding and agreement with our assessment and plan at this time. The documentation in this chart was dictated using [employer] dictation software. Please excuse any dictation errors. FINDINGS: Brain: There is no acute intracranial hemorrhage, mass effect or midline shift. There is no large acute territorial cerebral infarct. A focus of hypodensity noted in the right cerebellar hemisphere, likely from remote infarct. A small similar finding noted in the left cerebellar hemisphere. Cerebral ventricles: No ventriculomegaly. There is a cavum septum pellucidum et vergae. Paranasal sinuses: The paranasal sinuses are clear. No air-fluid levels. Mastoid air cells: The mastoid air cells are unremarkable. Bones/joints: No acute fracture. Soft tissues: Unremarkable. IMPRESSION: No acute intracranial hemorrhage, mass effect or midline shift FINDINGS: ANTERIOR CIRCULATION: Right internal carotid artery: The right internal carotid artery shows no evidence of occlusion or significant stenosis. No aneurysm. Right middle cerebral artery: No occlusion or significant stenosis in the right MCA. No aneurysm. Right anterior cerebral artery: No occlusion or significant stenosis in the right NATHAN. No aneurysm. Left internal carotid artery: The left internal carotid artery shows no evidence of occlusion or significant stenosis. No aneurysm. Left middle cerebral artery: No occlusion or significant stenosis in the left MCA. No aneurysm. Left anterior cerebral artery: No occlusion or significant stenosis in the left NATHAN. No aneurysm. POSTERIOR CIRCULATION: Right vertebral artery: No occlusion or significant stenosis in the right vertebral artery. No aneurysm. Left vertebral artery: No occlusion or significant stenosis in the left vertebral artery. No aneurysm. Basilar artery: The basilar artery shows no evidence of occlusion or significant stenosis. No aneurysm. Right posterior cerebral artery: No occlusion or significant stenosis in the right EXTRUDING MACHINE OPERATOR. No aneurysm. Left posterior cerebral artery: No occlusion or significant stenosis in the left EXTRUDING MACHINE OPERATOR. No aneurysm. IMPRESSION: No evidence of arterial occlusion or significant stenosis. FINDINGS: Right common carotid artery: No stenosis. No dissection or occlusion. Right internal carotid artery: No stenosis of the extracranial segment. No dissection or occlusion. Right external carotid artery: No occlusion or stenosis of the origin. Left common carotid artery: No stenosis. No dissection or occlusion. Left internal carotid artery: No stenosis of the extracranial segment. No dissection or occlusion. Left external carotid artery: No occlusion or stenosis of the origin. Right vertebral artery: No stenosis. No dissection or occlusion. Left vertebral artery: No stenosis. No dissection or occlusion. Soft tissues: Normal. No significant soft tissue swelling. Bones/joints: No acute fracture. IMPRESSION: No stenosis or occlusion. REFERENCES: NASCET CRITERIA. The degree of internal carotid artery stenosis is based on NASCET criteria. Normal is no stenosis. Mild is less than 50% stenosis. Moderate is 50-69% stenosis. Severe is 70% to 99% stenosis. Total occlusion is no detectable patent lumen. Thank you for allowing us to participate in the care of your patient. Dictated and Authenticated by: Lisa Razo MD 07/25/2022 7:41 PM Eastern Time ([place] & [place]) HPI General Date/Time Provider Initiated Documentation: 07/25/22 16:01 . HPI Narrative: This is a pleasant 62-year-old male with a past medical history of previous CVA on Plavix, prostate cancer with metastases to the spine currently on Zytiga and chronic prednisone, with a chronic baseline right-sided weakness, who presents today for headache that began last night at about 6 PM. He describes it as mild and generalized. He has also noticed some associated dizziness. He describes it as an unsteadiness and feeling slightly off. He denies any room spinning sensation. Symptoms are made worse when he tries to get up and walk around. He denies any new weakness. He denies any chest pain or shortness of breath. He denies any falls or trauma recently. He denies havi ng had symptoms like this before. Headache was gradual in onset. He describes it as very mild now. The patient denies any headache red flags of worst headache of life, thunderclap headache, neck pain, fever, chills, concerning family history of polycystic kidney disease, Marfan syndrome, Cindy-Danlos syndrome, abdominal aortic aneurysm, aortic dissection, or intracranial aneurysm. He has no other complaints at this time. No other modifying factors. Related Data Home Medications Medication Instructions Recorded Confirmed cholecalciferol (vitamin D3) 25 25 mcg PO DAILY 06/11/20 07/25/22 mcg (1,000 unit) chewable tablet (Vitamin D3) ascorbate calcium (vitamin C) 500 1 gm PO DAILY 06/24/20 07/25/22 mg tablet melatonin 10 mg tablet 10 mg PO HS PRN 07/07/20 07/25/22 triamcinolone acetonide 0.1 % 1 applic topical BID #30 grams 07/12/21 04/15/22 topical cream clopidogrel 75 mg tablet (Plavix) 75 mg PO DAILY #90 tabs 07/13/21 07/25/22 tamsulosin 0.4 mg capsule 0.4 mg PO PRN PRN 08/29/21 07/25/22 amlodipine 10 mg tablet 10 mg PO DAILY #90 tabs 09/09/21 07/25/22 lisinopril 40 mg tablet 40 mg PO DAILY #90 tab-caps 09/09/21 07/25/22 ibuprofen 600 mg tablet 600 mg PO Q8H PRN pain #10 tabs 10/12/21 07/25/22 diazepam 5 mg tablet 5 mg PO TID PRN muscle spasm #10 04/15/22 07/25/22 tabs sertraline 25 mg tablet (Zoloft) 1 tab PO DAILY 07/25/22 07/25/22 Previous Rx's Medication Instructions Recorded triamcinolone acetonide 0.1 % 1 applic topical BID #30 grams 07/12/21 topical cream clopidogrel 75 mg tablet (Plavix) 75 mg PO DAILY #90 tabs 07/13/21 amlodipine 10 mg tablet 10 mg PO DAILY #90 tabs 09/09/21 lisinopril 40 mg tablet 40 mg PO DAILY #90 tab-caps 09/09/21 ibuprofen 600 mg tablet 600 mg PO Q8H PRN pain #10 tabs 10/12/21 diazepam 5 mg tablet 5 mg PO TID PRN muscle spasm #10 04/15/22 tabs Allergies Allergy/AdvReac Type Severity Reaction Status Date / Time Penicillins Allergy Unknown Unknown Verified 07/25/22 16:16 venlafaxine HCl Allergy Unknown Unknown Verified 07/25/22 16:16 [From Effexor] latex Allergy Itching Verified 07/25/22 16:16 General Stated Complaint: Dizzy/Sync PAU: 3 Review of Systems All systems reviewed & are unremarkable except as noted in HPI and below PFSH All Active Problems (Updated 07/25/22 @ 20:12 by Dani Casillas DO) Dizziness (Acute) Headache (Acute) Medication intolerance (Chronic) Physical and philosophical intolerance of medications .. Prefers no statin, despite Hx CVA. At risk of fracture due to osteoporosis (Acute) Due to prostate cancer Tx ... Listed on screening request from [facility] per pt. Vitamin D deficiency (Acute) Hypertension (Chronic) Prediabetes (Acute) Dyslipidemia (Chronic) Prostate cancer (Chronic) Possible (+) findings, Dec 2021. Cancer free per pt report, 11/2020. Jan [address] [facility]. 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 1 3-4-5 weeks Chondromalacia patellae of right knee (Acute) Right knee pain (Acute) Pain w/ ambulation, new fluid collection. x 1 month, with exacerbation during walk yesterday .. Encounter for rehabilitation (Acute) a. From an infarction. Elevated prostate specific antigen (PSA) (Acute 10/30/16) Right groin pain (Acute) Nocturia (Acute) Insomnia disorder related to known organic factor (Acute) Depression (Chronic) Anxiety (Chronic) Medical History Chemotherapy-induced fatigue leading to deconditioning Diverticula of colon Spasticity (02/22/15) Presumed post CVA (2013) Tubular adenoma (~01/2021) Surgical History Colonoscopy - IV Sedation (10/07/15) DR.TERRY BURGOS History of colonoscopy with polypectomy (~02/10/21) Family History Brother Anxiety Father Diabetes Other Hypertension Social History Smoking/Tobacco Use Status: Never Smoking risk assessment performed?: Yes Alcohol Intake: current Alcohol Intake frequency: 0-2 drinks per day Drug use: Never Substance use type: does not use Adopted: No Caregiver/Support person: No Foster care: No Household members: family Do you need help understanding health information?: Rarely current occupation: Unemployed Sexually active: No Do you think of yourself as: lesbian/kc/homosexual Current gender identity: male Do you feel safe at home: Yes Do you feel safe in your relationship?: Yes Exam Narrative Exam Narrative: 1.Const: Well-nourished, Well-developed, appearing stated age 2.Eyes: PERRL, no conjunctival injection, and symmetrical lids. 3.ENT: Atraumatic external nose and ears. Moist MM. Neck: Symmetric, trachea midline, No thyromegaly. Patient demonstrates good movement of cervical neck. There is no nuchal rigidity, no nuchal tenderness. Patient is able to flex the neck without any difficulty or significant pain. Negative Kernig's and Brudzinski sign. 4.CVS: +S1/S2, No murmurs or gallops. Peripheral pulses 2+ and equal in all extremities. Brisk capillary refill in all extremities. 5.RESP: Unlabored respiratory effort. Clear to auscultation bilaterally. No w heezes rales or rhonchi 6.GI: Soft, Nontender/Nondistended, No hepatosplenomegaly. No guarding or rebound. 7.MSK: Normocephalic/Atraumatic, Extremities w/o deformity or ttp No cyanosis or clubbing, slight asymmetric weakness on the right compared to the left. Patient states that this is his baseline chronic level. 8.Skin: Warm, Dry. No rashes or lesions. 9.Neuro: cost estimating manager II-XII grossly intact. Sensation grossly intact, no dysdiadochokinesia. Patient demonstrates slight weakness on the right for the upper and lower extremity which he states is his baseline. Good plantar dorsiflexion of the feet bilaterally including the great toe. Good [id number]. Slight difficulty with the [id number] test for the right lower extremity secondary to his chronic weakness. Left-sided unidirectional fatigable horizontal nystagmus is present, no right- sided, no vertical or rotatory. Head impulse test is positive on the left, negative test of skew. 10.Psych: (AAO) x3. Appropriate mood and affect Course Vital Signs Vital signs: Vital Signs Temperature 36.7 C 07/25/22 16:08 Pulse 67 07/25/22 16:08 Respiratory Rate 18 07/25/22 16:08 Blood Pressure 165/92 H 07/25/22 16:08 Pulse Oximetry 95 07/25/22 16:08 Temperature 36.7 C 07/25/22 16:08 Temperature Source Temporal Artery Scan 07/25/22 16:08 Pulse 67 07/25/22 16:08 Respiratory Rate 18 07/25/22 16:08 Blood Pressure 165/92 H 07/25/22 16:08 Blood Pressure Position Supine 07/25/22 16:08 Pulse Oximetry 95 07/25/22 16:08 Oxygen Delivery Method Room Air 07/25/22 16:08 Oxygen Flow Rate 0 07/25/22 16:08 Pain Level 3 07/25/22 16:08
[2022-07-25 17:06] LABS: Abs Immature Grans 0.03 10^3/uL (0.0-0.06); Absolute Basophil Count 0.01 10^3/uL (0.0-0.2); Absolute Eosinophil Count 0.01 10^3/uL (0.0-0.7); Absolute Lymphocyte Count 0.63 10^3/uL (1.2-3.4); Absolute Monocyte Count 0.26 10^3/uL (0.1-0.8); Absolute Neutrophil Count 3.03 10^3/uL (1.2-6.7); Basophils % 0.3; Eosinophils % 0.3; HCT 36.2 % (40.0-50.0); HGB 12.9 g/dL (13.5-17.5); Immature Grans % 0.8; Lymphocytes % 15.9; MCH 30.3 pg (27.0-33.0); MCHC 35.6 % (32.0-36.0); MCV 85 fL (80-95); MPV 10.5 fL (8.0-11.0); Monocytes % 6.5; Neutrophils % 76.2; Platelet Count 158 10^3/uL (130-400); RBC 4.26 10^6/uL (4.36-5.78); RDW 12.8 % (11.8-14.1); RDW-SD 38.5 fL; WBC 3.97 10^3/uL (4.4-10.8)
[2022-07-25] MEDS: Normal Saline 1,000 ML 1000 ML IV (17:17)
[2022-07-25 17:23] LABS: ALT 19 U/L (16-63); AST 9 U/L (15-37); Alkaline Phosphatase 148 U/L (46-116); Anion Gap 9.8 mmol/L (3-11); BUN 22 mg/dL (7-18); Bilirubin, Total 0.6 mg/dL (0.2-1.0); CO2 26.2 mmol/L (21.0-32.0); CREATININE 1.2 mg/dL (0.70-1.30); Calcium 9.3 mg/dL (8.5-10.1); Chloride 105 mmol/L (98-107); Glucose 162 mg/dL (74-106); Potassium 3.9 mmol/L (3.5-5.1); Sodium 141 mmol/L (136-145); Total Protein 7.2 g/dL (6.4-8.2); Troponin I < 50 ng/L (<or=60)
[2022-07-25] MEDS: Omnipaque 350 MG/ML 100 ML BTL IJ (18:48)
--- NOTE | 2022-07-25 19:41 | DI.VRAD_ITS ---
PROCEDURE INFORMATION: Exam: CT Head Without Contrast Exam date and time: 07/25/2022 6:48 PM Age: 62 years old Clinical indication: HX of stroke, now dizzy with headache TECHNIQUE: Imaging protocol: Computed tomography of the head without contrast. COMPARISON: CT HEAD WO 06/11/2020 3:37 PM FINDINGS: Brain: There is no acute intracranial hemorrhage, mass effect or midline shift. There is no large acute territorial cerebral infarct. A focus of hypodensity noted in the right cerebellar hemisphere, likely from remote infarct. A small similar finding noted in the left cerebellar hemisphere. Cerebral ventricles: No ventriculomegaly. There is a cavum septum pellucidum et vergae. Paranasal sinuses: The paranasal sinuses are clear. No air-fluid levels. Mastoid air cells: The mastoid air cells are unremarkable. Bones/joints: No acute fracture. Soft tissues: Unremarkable. IMPRESSION: No acute intracranial hemorrhage, mass effect or midline shift. PROCEDURE INFORMATION: Exam: CTA Head With Contrast, Arteriography Exam date and time: 07/25/2022 6:48 PM Age: 62 years old Clinical indication: HX of stroke, now dizzy with headache TECHNIQUE: Imaging protocol: Computed tomographic angiography of the head with contrast. Exam focused on the arteries. 3D rendering (Not supervised by radiologist): MIP and/or 3D reconstructed images were created by the technologist. Contrast material: 350; Contrast volume: 85 ml; Contrast route: INTRAVENOUS (IV); COMPARISON: CT HEAD WO 06/11/2020 3:37 PM FINDINGS: ANTERIOR CIRCULATION: Right internal carotid artery: The right internal carotid artery shows no evidence of occlusion or significant stenosis. No aneurysm. Right middle cerebral artery: No occlusion or significant stenosis in the right MCA. No aneurysm. Right anterior cerebral artery: No occlusion or significant stenosis in the right NATHAN. No aneurysm. Left internal carotid artery: The left internal carotid artery shows no evidence of occlusion or significant stenosis. No aneurysm. Left middle cerebral artery: No occlusion or significant stenosis in the left MCA. No aneurysm. Left anterior cerebral artery: No occlusion or significant stenosis in the left NATHAN. No aneurysm. POSTERIOR CIRCULATION: Right vertebral artery: No occlusion or significant stenosis in the right vertebral artery. No aneurysm. Left vertebral artery: No occlusion or significant stenosis in the left vertebral artery. No aneurysm. Basilar artery: The basilar artery shows no evidence of occlusion or significant stenosis. No aneurysm. Right posterior cerebral artery: No occlusion or significant stenosis in the right NETWORK ENGINEER ADMINISTRATOR. No aneurysm. Left posterior cerebral artery: No occlusion or significant stenosis in the left NETWORK ENGINEER ADMINISTRATOR. No aneurysm. IMPRESSION: No evidence of arterial occlusion or significant stenosis. PROCEDURE INFORMATION: Exam: CTA Neck With Contrast Exam date and time: 07/25/2022 6:48 PM Age: 62 years old Clinical indication: HX of sroke, now dizzy with headache TECHNIQUE: Imaging protocol: Computed tomographic angiography of the neck with contrast. 3D rendering (Not supervised by radiologist): MIP and/or 3D reconstructed images were created by the technologist. Contrast material: 350; Contrast volume: 85 ml; Contrast route: INTRAVENOUS (IV); COMPARISON: CT HEAD WO 06/11/2020 3:37 PM FINDINGS: Right common carotid artery: No stenosis. No dissection or occlusion. Right internal carotid artery: No stenosis of the extracranial segment. No dissection or occlusion. Right external carotid artery: No occlusion or stenosis of the origin. Left common carotid artery: No stenosis. No dissection or occlusion. Left internal carotid artery: No stenosis of the extracranial segment. No dissection or occlusion. Left external carotid artery: No occlusion or stenosis of the origin. Right vertebral artery: No stenosis. No dissection or occlusion. Left vertebral artery: No stenosis. No dissection or occlusion. Soft tissues: Normal. No significant soft tissue swelling. Bones/joints: No acute fracture. IMPRESSION: No stenosis or occlusion. REFERENCES: NASCET CRITERIA. The degree of internal carotid artery stenosis is based on NASCET criteria. Normal is no stenosis. Mild is less than 50% stenosis. Moderate is 50-69% stenosis. Severe is 70% to 99% stenosis. Total occlusion is no detectable patent lumen. Dictated and Authenticated by: Lisa Kearney MD. Ordering:MELA Louise MD
[2022-07-25 20:29] LABS: Troponin I < 50 ng/L (<or=60)
== END 2022-07-25 20:36 | disposition home or self-care (01) ==
PROVIDERS: Emergency Provider Student in an Organized Health Care Education/Training Program; PCP Nurse Practitioner Family
DX: R42 Dizziness and giddiness (principal); R51.9 Headache, unspecified; R53.1 Weakness; H55.00 Unspecified nystagmus; R53.83 Other fatigue; Z86.73 Personal history of transient ischemic attack (TIA), and cerebral infarction without residual deficits; Z79.01 Long term (current) use of anticoagulants
CPT/HCPCS: 70496; 70498; 80053; 93005; 96360; 99285; 83735; 84484; 85025; 93010; J3490

== ENCOUNTER → 2023-10-07 13:28 | Outpatient (BNVA) | payer MEDICARE, SELFPAY | PROVIDERS: PCP Nurse Practitioner Family; Referring Provider Nurse Practitioner Family; Visit Provider Podiatrist | DX: L60.2 Onychogryphosis (principal) | CPT/HCPCS: 99024 ==

== ENCOUNTER → 2023-12-16 13:05 | Outpatient (BNVA) | payer MEDICARE, SELFPAY | PROVIDERS: PCP Nurse Practitioner Family; Referring Provider Nurse Practitioner Family | DX: M25.561 Pain in right knee (principal); R29.898 Other symptoms and signs involving the musculoskeletal system; I69.951 Hemiplegia and hemiparesis following unspecified cerebrovascular disease affecting right dominant side | CPT/HCPCS: 99215 ==

== ENCOUNTER → 2023-12-26 02:50 | Outpatient (CLI) | payer MEDICARE, SELFPAY ==
--- NOTE | 2023-12-26 | DI.DEXA_ITS ---
Exam(s) XR DEXA BONE DENSITY W/WO NILDA EXAM: XR DEXA BONE DENSITY W/WO NILDA CLINICAL HISTORY: OSTEOPENIA CAUSED BY DRUG,z79.52,H/O CHEMO,ON LONG-TERM STEROIDS TECHNIQUE: Hologic Horizon C densitometer analysis of left hip, lumbar spine and left forearm. Lat eral survey image of the thoracic and lumbar spine. COMPARISON: CR XR DEXA BONE DENSITY W/WO NILDA from 07/19/2020 FINDINGS: Lateral view of the thoracic and lumbar spine shows no evidence of compression fractures. Scoliosis and degenerative changes are present. Bone mineral density measurements of the lumbar spine correspond to a total T-score of 0.5, in the n ormal range. This represents a 2.7 percent increase from 2020. Bone mineral density measurements of the left hip correspond to a total T-score of -2.0 arm. This re presents a 4.4 percent decrease from 2020. the femoral neck T-score is negative 2.0, in the osteope vesta range.. Theleft forearm bone mineral density measurements correspond to a T-score of the distal 3rd of 0.4, in the normal range. This is not significantly changed from the prior exam.. IMPRESSION: Normal bone mineral density of the forearm and spine. Osteopenia of the hip.
== END ==
PROVIDERS: PCP Nurse Practitioner Family; Visit Provider Nurse Practitioner Family
DX: Z79.52 Long term (current) use of systemic steroids (principal)
CPT/HCPCS: 77080

== ENCOUNTER 2024-03-31 06:02 | Outpatient (CLI) | payer MEDICARE, SELFPAY ==
--- NOTE | 2024-04-03 12:34 | W.NUTRFU ---
Date of service: 03/31/24 Time of Service: 12:30 Nutrition Note NOTE: Hernandez comes in after referral was received for nutrition education regarding prediabetes, HLD and HTN. Pt reports most recent A1C down to 5.1%. got rid of refined sugars and flour products. We discussed diet management for all 3 of the above can be managed by working more towards a whole food, plant-based, anti-inflammatory diet style with carbs mgt of 170g per day/10-11CHO choices. Recommended 70-100g protein and highlighted good daily sources of plant protein and how they help with all 3 conditions (emphasized nuts/seeds, legumes daily). We discussed level of refinement of starches affects glycemic load and how we want our body to have a more difficult time with carb choices by choosing less processed, higher fiber choices. We looked at some menu planning basics. Hernandez took my card to contact for any need for follow up visits, more resources or to get any quick questions answered. Time Spent in Nutritional Counseling and Treatment: 45 minutes
== END 2024-03-31 06:03 | disposition home or self-care (01) ==
LOC: DS 06:02
PROVIDERS: PCP Nurse Practitioner Family; Visit Provider Dietitian, Registered
DX: R73.03 Prediabetes (principal); E78.5 Hyperlipidemia, unspecified; I10 Essential (primary) hypertension; Z71.3 Dietary counseling and surveillance
CPT/HCPCS: 00123; 97802

== ENCOUNTER 2024-09-08 16:08 | Outpatient (CLI) | payer MEDICARE, SELFPAY ==
[2024-09-08 16:29] LABS: Abs Immature Grans 0.03 10^3/uL (0.0-0.06); Absolute Basophil Count 0.01 10^3/uL (0.0-0.2); Absolute Eosinophil Count 0.04 10^3/uL (0.0-0.7); Absolute Lymphocyte Count 0.99 10^3/uL (1.2-3.4); Absolute Monocyte Count 0.29 10^3/uL (0.1-0.8); Absolute Neutrophil Count 2.28 10^3/uL (1.2-6.7); Basophils % 0.3 %; Eosinophils % 1.1 %; HCT 38.5 % (40.0-50.0); HGB 13.2 g/dL (13.5-17.5); Immature Grans % 0.8 %; Lymphocytes % 27.2 %; MCHC 34.3 % (32.0-36.0); MCV 88 fL (80-95); MPV 9.9 fL (8.0-11.0); Neutrophils % 62.6 %; Platelet Count 225 10^3/uL (130-400); RDW 12.9 % (11.8-14.1); RDW-SD 41.1 fL; WBC 3.64 10^3/uL (4.4-10.8)
[2024-09-08 16:41] LABS: ALT 17 U/L (16-63); AST 9 U/L (15-37); Albumin 3.8 g/dL (3.4-5.0); Alkaline Phosphatase 204 U/L (46-116); Anion Gap 11.2 mmol/L (3-11); BUN 25 mg/dL (7-18); Bilirubin, Total 0.47 mg/dL (0.2-1.0); CO2 23.8 mmol/L (21.0-32.0); CREATININE 1.2 mg/dL (0.70-1.30); Calcium 9.6 mg/dL (8.5-10.1); Chloride 107 mmol/L (98-107); Estimated GFR 67.95 (mL/min/1.73m2); Glucose 138 mg/dL (74-106); Potassium 3.7 mmol/L (3.5-5.1); Sodium 142 mmol/L (136-145); Total Protein 7.4 g/dL (6.4-8.2)
[2024-09-10 12:19] LABS: PSA, Ultrasensitive 4.1 ng/mL (<= 4.5)
[2024-09-11 12:34] LABS: Testosterone, Total <7.0 ng/dL (240-950)
== END 2024-09-08 16:09 | disposition home or self-care (01) ==
LOC: LBO 16:08
PROVIDERS: PCP Nurse Practitioner Family; Visit Provider Internal Medicine
DX: C61 Malignant neoplasm of prostate (principal); C79.51 Secondary malignant neoplasm of bone
CPT/HCPCS: 36415; 80053; 84153; 84403; 85025

== ENCOUNTER 2024-09-29 12:27 | Outpatient (CLI) | payer MEDICARE, SELFPAY ==
[2024-09-29 12:52] LABS: Abs Immature Grans 0.03 10^3/uL (0.0-0.06); Absolute Basophil Count 0.03 10^3/uL (0.0-0.2); Absolute Eosinophil Count 0.03 10^3/uL (0.0-0.7); Absolute Lymphocyte Count 0.99 10^3/uL (1.2-3.4); Absolute Monocyte Count 0.32 10^3/uL (0.1-0.8); Absolute Neutrophil Count 2.74 10^3/uL (1.2-6.7); Basophils % 0.7 %; Eosinophils % 0.7 %; HCT 41.1 % (40.0-50.0); HGB 14.3 g/dL (13.5-17.5); Immature Grans % 0.7 %; Lymphocytes % 23.9 %; MCH 29.9 pg (27.0-33.0); MCHC 34.8 % (32.0-36.0); MCV 86 fL (80-95); MPV 9.9 fL (8.0-11.0); Monocytes % 7.7 %; Neutrophils % 66.3 %; Platelet Count 187 10^3/uL (130-400); RBC 4.78 10^6/uL (4.36-5.78); RDW 12.9 % (11.8-14.1); RDW-SD 39.8 fL; WBC 4.14 10^3/uL (4.4-10.8)
[2024-09-29 13:21] LABS: ALT 14 U/L (16-63); AST 11 U/L (15-37); Alkaline Phosphatase 171 U/L (46-116); Anion Gap 9.9 mmol/L (3-11); BUN 23 mg/dL (7-18); Bilirubin, Total 0.65 mg/dL (0.2-1.0); CO2 29.1 mmol/L (21.0-32.0); Calcium 10.2 mg/dL (8.5-10.1); Chloride 104 mmol/L (98-107); Estimated GFR 84.57 (mL/min/1.73m2); Glucose 142 mg/dL (74-106); Potassium 4.6 mmol/L (3.5-5.1); Sodium 143 mmol/L (136-145); Total Protein 7.6 g/dL (6.4-8.2)
[2024-10-01 13:25] LABS: PSA, Ultrasensitive 4.7 ng/mL (<= 4.5)
[2024-10-03 12:26] LABS: Testosterone, Total <7.0 ng/dL (240-950)
== END 2024-09-29 12:28 | disposition home or self-care (01) ==
LOC: LBO 12:29
PROVIDERS: PCP Nurse Practitioner Family; Visit Provider Internal Medicine
DX: C61 Malignant neoplasm of prostate (principal); C79.51 Secondary malignant neoplasm of bone
CPT/HCPCS: 36415; 80053; 84153; 84403; 85025

== ENCOUNTER 2024-11-24 13:51 | Outpatient (CLI) | payer MEDICARE, SELFPAY ==
[2024-11-24 10:10] LABS: Abs Immature Grans 0.02 10^3/uL (0.0-0.06); Absolute Basophil Count 0.02 10^3/uL (0.0-0.2); Absolute Eosinophil Count 0.13 10^3/uL (0.0-0.7); Absolute Lymphocyte Count 0.81 10^3/uL (1.2-3.4); Absolute Monocyte Count 0.36 10^3/uL (0.1-0.8); Absolute Neutrophil Count 2.24 10^3/uL (1.2-6.7); Basophils % 0.6 %; Eosinophils % 3.6 %; HCT 41.4 % (40.0-50.0); Immature Grans % 0.6 %; Lymphocytes % 22.6 %; MCH 28.8 pg (27.0-33.0); MCHC 33.8 % (32.0-36.0); MCV 85 fL (80-95); MPV 9.1 fL (8.0-11.0); Monocytes % 10.1 %; Neutrophils % 62.5 %; Platelet Count 191 10^3/uL (130-400); RBC 4.86 10^6/uL (4.36-5.78); RDW 12.6 % (11.8-14.1); RDW-SD 38.3 fL; WBC 3.58 10^3/uL (4.4-10.8)
[2024-11-24 10:22] LABS: ALT 8 U/L (16-63); AST 9 U/L (15-37); Albumin 3.7 g/dL (3.4-5.0); Alkaline Phosphatase 160 U/L (46-116); Anion Gap 10.3 mmol/L (3-11); BUN 20 mg/dL (7-18); CO2 28.7 mmol/L (21.0-32.0); CREATININE 1.2 mg/dL (0.70-1.30); Calcium 9.7 mg/dL (8.5-10.1); Chloride 104 mmol/L (98-107); Estimated GFR 67.95 (mL/min/1.73m2); Glucose 144 mg/dL (74-106); Potassium 4.3 mmol/L (3.5-5.1); Sodium 143 mmol/L (136-145); Total Protein 7.7 g/dL (6.4-8.2)
--- OUTSIDE RECORDS SUMMARY | 2024-11-24 13:55 | XMS_ITS | Encounter Summary ---
Author Organization Formerly [facility], Later [facility] Address [facility] [place] [address] Care Team Providers Care Dragline Engineer Name Role Phone Sachin Laura Aguilar APRN Primary Care Provider [phone] Reason for Referral * Diagnostic Test (Routine) - Closed Specialty Diagnoses / Procedures Referred By Contac t Referred To Contact Radiology Diagnoses Malignant neoplasm of prostate metastatic to bone Procedures NM PET CT PSMA Prostate (Illuccix) Tom Welch MD [facility] [address] [place] [address] [place] [address] Referral ID Status Reason Start Date Expiration Date V isits Requested Visits Authorized [id number] Closed Specialty Service Requested 09/08/2024 03/09/2026 1 1 Reason for Visit * Diagnostic Test (Routine) - Closed Specialty Diagnoses / Procedures Referred By Contac t Referred To Contact Radiology Diagnoses Malignant neoplasm of prostate metastatic to bone Procedures NM PET CT PSMA Prostate (Illuccix) Tom Welch MD [facility] [address] [place] [address] [place] [address] Referral ID Status Reason Start Date Expiration Date V isits Requested Visits Authorized [id number] Closed Specialty Service Requested 09/08/2024 03/09/2026 1 1 Encounter Details Date Type Department Care Team (Latest Contact Info) Description 11/09/2024 1:56 PM EST - 11/09/2024 11:59 PM EST Hospital Encounter [place] [address] Tom Welch MD [facility] [address] [place] [address] Malignant neoplasm of prostate metastatic to bone Discharge Disposition: Home Social History Tobacco Use Types Packs/Day Years Used Date Smoking Tobacco: Never Smokeless Tobacco: Never Alcohol Use Standard Drinks/Week Comments Never 0 (1 standard drink = 0.6 oz pur e alcohol) B1300 Health Literacy Answer Date Recor ded How often do you need to hav e someone help you when you read instructions, pamphlets, or other written material from your doctor or pharmacy? Never 09/08/2024 [facility] Utilities Answer Date Recorded In the past 12 months has e electric, gas, oil, or water company threatened to shut off services in your home? No 09/08/2024 Overall Financial Resource Strain (CARDIA) Answe r Date Recorded How hard is it for you to pa y for the very basics like food, housing, medical care, and heating? Not very hard 09/08/2024 Hunger Vital Sign Answer Date Recorded Within the past 12 months, y ou worried that your food would run out before you got the money to buy more. Never true 09/08/20 24 Within the past 12 months, t he food you bought just didn't last and you didn't have money to get more. Never true 09/08/2024 PRAPARE - Transportation Answer Date Re corded In the past 12 months, has l ack of transportation kept you from medical appointments or from getting medications? No 07/2024 In the past 12 months, has l ack of transportation kept you from meetings, work, or from getting things needed for daily living? No 09/08/2024 Housing Stability Vital Sign Answer Mookie e Recorded In the last 12 months, was t here a time when you were not able to pay the mortgage or rent on time? No 09/08/2024 In the past 12 months, how m any times have you moved where you were living? 0 09/08/2024 At any time in the past 12 m [facility], were you homeless or living in a halfway (including now)? No 09/08/2024 Sex and Gender Information Value Date Recorded Sex Assigned at Male 10/17/2023 2:13 PM EST Gender Identity Male 10/17/2023 2:13 PM EST Sexual Orientation Lesbian or Gallo 10/17/2023 2: 13 PM EST documented as of this encounter Medications at Time of Discharge Medication Sig Dispensed Refills Start Date End Date enzalutamide (Xtandi) 40 mg tablet Take 160 mg by mouth daily. Take without regard to food. Call clinic before/prior to starting medication/script. sertraline (Zoloft) 25 mg tablet TAKE ONE TABLET BY MOUTH EVERY DAY FOR DEPRESSION AND ANXIETY - COMBINE WITH 50MG TABLETS FOR A TOTAL OF 75MG DAILY 03/20/2023 sertraline (Zoloft) 50 mg tablet Take 50 mg by mouth daily. 01/30/2023 clopidogrel (PLAVIX) 75 mg tablet Take 1 tablet by mouth daily. 30 tablet 0 04/07/2014 lisinopril (PRINIVIL;ZESTRIL) 40 mg tablet Take 1 tablet by mouth daily. Would hold off on this for 2 weeks after discharge and start partial dose at that time. 30 tablet 04/07/2014 amLODIPine (NORVASC) 10 mg tablet Take 1 tablet by mouth daily. Would slowly add this back on after a month from discharge. 30 tablet 04/07/2014 tamsulosin (Flomax) 0.4 mg Capsule Take 0.4 mg by mouth as needed. 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 ??Metastatic lymphadenopathy in the right supraclavicular space, mediastinum and right hilum. 2. ??Right-sided pleural-based metastasis. 3. ??Multiple osseous metastases. Thank you for referring this patient to [facility]. Preliminary report signed by: Sergio Gomez MD at 11/10/2024 1:32 PM I have personally reviewed the image(s) and the resident's interpretation and agree with the findings, Rajeev Osullivan MD at 11/10/2024 1:44 PM Thank you for letting us participate in the care of this patient. ??If you are a health care provider and have any questions regarding this report, please contact the number below. ??For patients who have questions please contact the health health care attorney that requested your imaging first. ? Narrative 11/10/2024 1:44 PM EST EXAMINATION: NM PET CT PSMA PROSTATE (ILLUCCIX) CLINICAL HISTORY: Restaging of metastatic prostate cancer C61, Malignant neoplasm of prostate - C79.51, Secondary malignant neoplasm of bone TECHNIQUE: Following IV injection of Ga 68 PSMA-11 (Illuccix) and a standard uptake of approximately 60 minutes, a noncontrast CT scan followed by a PET scan were acquired from the top of the head to mid thighs. The noncontrast CT was used for anatomic localization and photon attenuation correction of the PET scan. Ga 68 PSMA-11 (Illuccix) Dose: 5.5 mCi COMPARISON: CT head without contrast 06/11/2020. MRI brain without contrast 04/05/2014. FINDINGS: HEAD/NECK: Multiple, radiotracer avid right-sided supraclavicular lymph nodes. CHEST: Numerous, radiotracer avid enlarged lymph nodes, specifically within the subcarinal, right paratracheal, and right hilar distributions. Several, additional mildly radiotracer avid paraesophageal lymph nodes. Radiotracer avid, pleural-based nodule along the medial right lower lobe (axial image 127). Extensive coronary artery calcification. Ectatic ascending thoracic aorta. ABDOMEN/PELVIS: No abnormal radiotracer avid lymph nodes within the abdomen or pelvis. Prostate fiducial markers in place. SKELETON/EXTREMITIES: Radiotracer avid foci within the T10 and T12 vertebral bodies. Radiotracer avid lesion within the right sternum. Non-radiotracer avid, sclerotic rimmed lesion within the L2 vertebral body, favored treated metastatic lesion. Mildly radiotracer avid T7 superior endplate compression fracture. Procedure Note Rajeev Osullivan MD - 11/10/2024 EXAMINATION: NM PET CT PSMA PROSTATE (ILLUCCIX) CLINICAL HISTORY: Restaging of metastatic prostate cancer C61, Malignant neoplasm of prostate - C79.51, Secondary malignant neoplasmof bone TECHNIQUE: Following IV injection of Ga 68 PSMA-11 (Illuccix) and astandard uptake of approximately 60 minutes, a noncontrast CT scan followed by aPET scan were acquired from the top of the head to mid thighs. The noncontrast CTwas used for anatomic localization and photon attenuation correction of thePET scan. Ga 68 PSMA-11 (Illuccix) Dose: 5.5 mCi COMPARISON: CT head without contrast 06/11/2020. MRI brain without contrast 04/05/2014. FINDINGS: HEAD/NECK: Multiple, radiotracer avid right-sided supraclavicular lymph nodes. CHEST: Numerous, radiotracer avid enlarged lymph nodes, specifically within the subcarinal, right paratracheal, and right hilar distributions. Several, additional mildly radiotracer avid paraesophageal lymph nodes. Radiotracer avid, pleural-based nodule along the medial right lower lobe(axial image 127). Extensive coronary artery calcification. Ectatic ascending thoracicaorta. ABDOMEN/PELVIS: No abnormal radiotracer avid lymph nodes within the abdomen or pelvis. Prostate fiducial markers in place. SKELETON/EXTREMITIES: Radiotracer avid foci within the T10 and T12 vertebral bodies. Radiotraceravid lesion within the right sternum. Non-radiotracer avid, sclerotic rimmed lesion within the L2 vertebralbody, favored treated metastatic lesion. Mildly radiotracer avid T7 superior endplate compression fracture. IMPRESSION 1. Metastatic lymphadenopathy in the right supraclavicular space,mediastinum and right hilum. 2. Right-sided pleural-based metastasis. 3. Multiple osseous metastases. Thank you for referring this patient to [facility]. Preliminary report signed by: Sergio Gomez MD at 11/10/2024 1:32 PM I have personally reviewed the image(s) and the resident's interpretationand agree with the findings, Rajeev Osullivan MD at 11/10/2024 1:44 PM Thank you for letting us participate in the care of this patient. If youare a health care provider and have any questions regarding this report,please contact the number below. For patients who have questions please contactthe health health care attorney that requested your imaging first. 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 Malignant neoplasm of prostate documented in this encounter Administered Medications Inactive Administered Medications - up to 3 most recent administrations Medication Order MAR Action Action Date Dose Rate Site Ga 68 psma-11 (Illuccix) injection 4-10 mCi 4-10 mCi, Intravenous, ONCE, 1 dose, On 11/09/24 at 1515, Radiology Contrast, Routine Given 11/09/2024 2:20 PM EST 5.5 mCi documented in this encounter Care Teams Dragline Engineer Relationship Specialty Start Date End Date Laura Stephenson, J[address] [place] [address] PCP - General Family Medicine 09/14/24 documented as of this encounter
--- OUTSIDE RECORDS SUMMARY | 2024-11-24 13:55 | XMS_ITS | Encounter Summary ---
Author Organization [facility] Address [facility] [place] [address] Care Team Providers Care Union Steward Name Role Phone Laura Stephenson APRN Primary Care Provider [phone] Encounter Details Date Type Department Care Team (Late st Contact Info) Description 11/24/2024 9:30 AM EST Office Visit Hematology/Oncology at [address] [phone] Tom Welch MD [facility] [address] [place] [address] Danielle Pool APRN [facility] [place] [address] Malignant neoplasm of prostate metastatic to bone; Prostate cancer metastatic to multiple sites; Androgen deprivation therapy Social History Tobacco Use Types Packs/Day Years [...] from your doctor or pharmacy? Never 09/08/2024 [facility] Utilities Answer Date Recorded In the past 12 months has [employer] electric, gas, oil, or water company threatened [...] any time in the past 12 [facility], were you homeless or living in a penitentiary (including now)? No 09/08/2024 Sex and Gender Information Value Date Recorded Sex Assigned at Male 10/17/2023 2:13 PM EST Gender Identity Male 10/17/2023 2:13 PM EST Sexual Orientation Lesbian or Gallo 10/17/2023 2: 13 PM EST documented as of this encounter Last Filed Vital Signs Vital Sign Reading Time Taken Comments Blood Pressure 143/76 11/24/2024 10:13 AM EST Pulse 65 11/24/2024 10:13 AM EST Temperature 36.1 ??C (97 ??F) 11/24/2024 10:13 AM EST Respiratory Rate 16 11/24/2024 10:13 AM EST Oxygen Saturation 100% 11/24/2024 10:13 AM EST Inhaled Oxygen Concentration - - Weight 63.5 kg (140 lb) 11/24/2024 10:13 AM EST Height 160 cm (5' 2.99) 11/24/2024 10:13 AM EST Body Mass Index 24.81 11/24/2024 10:13 AM EST documented in this encounter Progress Notes * Tom Welch MD - 11/24/2024 9:30 AM EST Images from the original note were not included. 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 ONCOLOGIC HISTORY: Oncology History - PSA 67 -08/06/18 PSA 333.9 -08/26/18 TRUS-guided prostate biopsy: - Findings: Prostate volume 47cc. - Path ([facility] review): 11/12 cores positive. [place] 4+5 adeno. Tumor invades extraprostatic soft tissue. PNI present in multiple cores. -09/16/18 CT A/P: Prostate enlarged and nodular. Thickening and nodularity involving bladder floor raises possibility of tumor involvement. No evidence of LAD on imaging report. However, on personal review of images, there are multiple suspicious lymph nodes tracking up from the pelvis to infra-renal vein level. -09/16/18 Bone scan: No definite evidence of bony metastases. Small faint increased uptake in lowerdorsal and lumbar spine could be degenerative changes on same-day CT. Very small focal uptake in posterior right 6th rib may be related to old trauma. -10/10/18 PSA 574.00 -10/10/18 MRI prostate w/wo contrast (compared to CT A/P 09/16/18): Extensive PI-RADS 5 tumor replacing the majority of the prostate gland with extraprostatic extension anteriorly into the posterior aspect of the urinary bladder, posteriorly into the mesorectal fat, and superiorly into bilateral seminal vesicles. Metastatic LAD in the pelvis, including 2.6x1.8cm R external iliac LN and 1.8x1.6cm L external iliac LN. Indeterminate sub-cm peripherally enhancing lesions in the right iliac bone. -10/16/18 Initial med onc visit. Recommended labs, CT chest to complete staging, starting ADT and abiraterone/prednisone, and radiation with Dr. Bonilla if no distant metastasis. Oncology management plan; IMRT + >=24-36mo ADT) (>= 10/2020-10/2021) -10/16/18 PSA 627.50, testosterone 608, alk phos 131. Started Firmagon 240mg x1 with plan to transition to Lupron in the future. CT chest showed no definitive evidence of metastasis. A faint sclerotic focus within the left lateral 7th rib was noted without correlate on bone scan. -11/20/18 PSA 17.27, testosterone <3, alk phos 156, Firmagon 80mg -11/21/18 Started abiraterone 100mg daily and prednisone 5mg daily -12/01/18 Presented to local ED with RLE weakness. BP was elevated (200/108). CT head showed no acute abnormalities. Subsequently reported no weakness but has increased pain in RLE associated with spasticity in setting of self- discontinuing baclofen. -12/25/18 PSA 5.12, testosterone <3, alk phos 128, Firmagon 80mg -01/22/19 PSA 2.94, alk phos 133, Started Lupron 2.5mg Q3mo -03/26/19 PSA 1.55 -04/13/19 Completion of IMRT prostate/SV's 79.2 Gy & pelvic nodes 50.4 Gy over 44 fr (Dr. Bonilla) -04/20/19 PSA 0.88 -07/23/19 PSA 0.15, testosterone <3 -10/15/19 PSA 0.06, testosterone <3 -01/19/20 PSA 0.02, testosterone <3 -04/18/20 PSA <0.02, testosterone <3 -07/21/20 PSA <0.02, testosterone <3 10/17/20 MRI prostate w/wo contrast: Prostate volume 19mL. Posttreatment changes without new suspicious focal prostatic lesion. No enhancing osseous lesions or pelvic LAD. -10/17/20 CT abdomen with contrast: No abdominal metastatic disease. -10/17/20 PSA <0.02, testosterone <3, Discontinued Eligard and Abirateorne, Started Prednisone taper -01/22/21 PSA<0.02, testosterone <3 -04/27/21 PSA <0.02, testosterone 35 -07/27/21 PSA 0.06, testosterone 77 -11/09/21 PSA 6.75, testosterone 132 -11/29/21 PSMA PET/CT: Intense uptake along sclerotic T7 and L2 vertebral body lesions are most likely metastatic. Tracer avid periaortic lymph nodes at the level of the L2 lesion are most likely leonard metastases. Lower level uptake along right paratracheal node indeterminate. Curvilinear uptake along right lower lobe which appears to correspond to subsegmental pulmonary artery. This much less avid than areas of disease described above and may be inflammatory rather than metastatic. CT pulmonary and recommended to assess for any subsegmental embolism. Low-level uptake along the prostate, nonspecific -11/30/21 PSA 16.67, testosterone 112, Firmagon 240 mg -01/04/22 PSA 3.21, testosterone <3, started abiraterone, firmagon 80 mg -01/29/22-02/02/22 SBRT to T7 + L2/para-aortic nodes (Dr. Vazquez) -02/01/22 PSA 1.59, testosterone <3, Started Lupron 22.5 mg q3mo -05/10/22 PSA 0.07 -05/10/22 CT chest with contrast: Increased sclerosis of osseous lesion in T7 vertebral body and new osteosclerotic lesion in T9 vertebral body, likely representing osseous metastases. -05/10/22 CT A/P with contrast: Increase in sclerosis of L2 vertebral metastasis. No significant change in T10 vertebral body sclerotic lesion which was not avid on prior PET/CT. No new osseous metastases.No new lymphadenopathy. Subcentimeter nodes in the left para-aortic region at L2 remain small.Similar asymmetric wall thickening involving the posterior aspect of urinary bladder base. -08/15/22 X-ray right hip: Normal joint space of the right hip. -08/15/22 X-ray right knee: Normal joint spaces of the right knee. -08/15/22 MRI hip: Mild right hip degenerative changes with degenerative tearing of the acetabular labrum. No stress fracture. -08/15/22 MRI lumbar spine: Sclerotic lesion in L2 vertebral body without definite extraosseous extension. Multilevel degenerative changes causing severe neural foraminal narrowing at multiple levels. -08/16/22 PSA 0.03, testosterone <3 -11/15/22 PSA 0.03, testosterone <3 -02/21/23 PSA 0.04, testosterone <3 -05/23/23 PSA 0.06, testosterone <3 -08/29/23 PSA 0.09, testosterone <3 -11/20/23 CT chest: Decrease sclerosis within the sclerotic focus of T9 vertebral body which may besecondary to treatment response. Unchanged sclerotic focus in T7 vertebral body which demonstrated increased PSMA uptake on prior PET/CT. -11/20/23 CT A/P: Interval decrease in the size and attenuation of T10 and L2 vertebral body lesions. No new sites of metastatic disease in the abdomen and pelvis. -11/20/23 Bone scan: There is no scintigraphic evidence of osteoblastic activity related to osseousmetastatic disease. The known T7 and L2 sclerotic lesions do not demonstrate abnormal uptake. -11/21/23 PSA 0.18, testosterone <3 -01/10/24 PSA 0.19 -01/10/24 PSMA PET/CT: Decreased but residual moderately increased PSMA uptake correlating with a sclerotic lesion at L2; this may represent active prostate malignancy. No other definite areas of abnormal PSMA uptake to suggest malignancy. Small focus of increased PSMA uptake in the medial right upper lobe in the paravertebral region with no CT correlate, indeterminate and may be inflammatory. -02/12/24 MRI lumbar spine: Interval decrease in size and associated STIR signal abnormality of thelarger L2 sclerotic foci with slight increase in size of a more anterior superior foci. -02/13/24 PSA 0.26, testosterone <3 -03/02/24-03/09/24 SBRT re-irradiation to L2 vertebrae -05/21/24 PSA 0.78, testosterone <3 -06/17/24 PSMA PET/CT: (1) Newly radiotracer avid right paratracheal lymph nodes with interval increased size highly concerning for metastatic involvement. (2) Interval increased avidity and its extent in the right paramediastinal region that may reflect a subcarinal lymph node rather than lung avidity, highly concerning for metastatic involvement. (3) Interval increased focal avidity within the L2 vertebral body sclerotic lesion and new mild avidity of T7 vertebral body without clear CT correlate; the L2 lesion is most likely metastatic and though mild in avidity, T7 lesion is also concerning for metastatic involvement. -06/18/24 [id number]: TMB not evaluable. MSI-high not detected. Tumor fractino <0.3%. No actional variants identified. VUS in EPCAM and FLT4. 11/21: SUVmax 9.2 -06/19/24 Started Enzalutamide 160mg daily -07/16/24 PSA 1.40 -08/04/24 PSA 1.90 -08/27/24 PSA 3.20, Lupron 22.5mg (last dose before transitioning of care to [facility]) -08/27/24 MRI lumbar spine: New superior endplate compression deformity of L2 with 20% height loss.There is diffuse STIR hyperintensity favored to represent edema from acute compression deformity. The treated lesion in the L2 vertebral body appears similar in size on the T1 weighted images. -10/08/24 -11/05/24 Provenge Interval history:Hernandez Chris is in clinic for follow-up of metastatic prostate cancer. He completed Provenge infusions 3 weeks ago. Tolerated the treatment well.. He feels easily tired. Denies any new pain. No changes in urination is currently on enzalutamide 160 mg a day. 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 Family History: Noncontributory Allergies: Allergies Allergen Reactions Latex Penicillins Medications: Your Medications Accurate as of November 24, 2024 10:40 AM. If you have any questions, ask your nurse or doctor. Continued medications, unchanged Dose Details amLODIPine 10 mg tablet Commonly known as: Norvasc Take 1 tablet by mouth daily. Would slowly add this back on after a month from discharge. 10 mg Quantity: 30 tablet Refills: 0 clopidogreL 75 mg tablet Commonly known as: Plavix Take 1 tablet by mouth daily. 75 mg Quantity: 30 tablet Refills: 0 lisinopriL 40 mg tablet Commonly known as: Zestril Take 1 tablet by mouth daily. Would hold off on this for 2 weeks after discharge and start partial dose at that time. 40 mg Quantity: 30 tablet Refills: 0 * sertraline 50 mg tablet Commonly known as: Zoloft Take 50 mg by mouth daily. 50 mg Refills: 0 * sertraline 25 mg tablet Commonly known as: Zoloft TAKE ONE TABLET BY MOUTH EVERY DAY FOR DEPRESSION AND ANXIETY - COMBINE WITH 50MG TABLETS FOR A TOTAL OF 75MG DAILY Refills: 0 tamsulosin 0.4 mg capsule Commonly known as: Flomax Take 0.4 mg by mouth as needed. 0.4 mg Refills: 0 Xtandi 40 mg tablet Take 160 mg by mouth daily. Take without regard to food. Call clinic before/prior to starting medication/script. Generic drug: enzalutamide 160 mg Refills: 0 * This list has 2 medication(s) that are the same as other medications prescribed for you. Read thedirections carefully, and ask your doctor or other care provider to review them with you. Review of Systems: Constitutional: Positive for fatigue. HEENT: Negative for sore throat, mouth sores and trouble swallowing. Eyes: Negative. Respiratory: Negative for cough, shortness of breath and wheezing. Cardiovascular: Negative for chest pain, palpitations and leg swelling. Gastrointestinal: Negative for nausea, vomiting, abdominal pain, diarrhea, constipation and abdominal distention. Genitourinary: Positive for frequency and difficulty urinating, improves with tamsulosin Musculoskeletal: Weakness in the right hand and right leg skin: Negative. Neurological: Negative. Hematological: Negative for adenopathy. PE: Constitutional: NAD HENT: Head: NCAT Eyes: Non-injected, anicteric. Neck: Normal ROM, supple. Cardiovascular: RRR, no murmur. Resp: Effort normal. No respiratory distress. Wheezes bilat lobes, no rales or rhonchi. Lymph: No palpable lymph nodes in cervical, supraclavicular, axillary areas. Abdominal: Soft, NT, ND, BS+ : no CVA tenderness. Skin: Skin is warm and dry. No rash or lesions noted on limited exam. No pallor. Musculoskeletal: No spinal tenderness. Normal range of motion, ambulatory. Extremities: No distal edema noted. Neurological: Alert & oriented, no focal deficits. Psych: Conversant, normal mood and affect. BP 143/76 (Patient Position: Sitting) Pulse 65 Temp 36.1 ??C (97 ??F) (Temporal) Resp 16 Ht160 cm (5' 2.99) Wt 63.5 kg (140 lb) SpO2 100% BMI 24.81 kg/m?? Pathology: PATHOLOGIC DIAGNOSIS: CONSULT SLIDES FROM [facility], [place], [place] A. CONSULT MATERIAL ([id number]; 08/26/2018): A) RIGHT BASE LATERAL, BIOPSY: PROSTATIC ADENOCARCINOMA, [place] score 4+4=8 (Grade Group 4), involving 80% of one (1) core. The tumor invades extraprostatitc soft tissue. Perineural invasion is present. B) RIGHT BASE MED, BIOPSY: PROSTATIC ADENOCARCINOMA, [place] score 4+5=9 (Grade Group 5), involving 95% of one (1) core. Perineural invasion is present. C) RIGHT MID LATERAL, BIOPSY: PROSTATIC ADENOCARCINOMA, Len score 4+5=9 (Grade Group 5), involving 95% of one (1) core. Perineural invasion is present. D) RIGHT MID MED, BIOPSY: PROSTATIC ADENOCARCINOMA, Len score 4+5=9 (Grade Group 5), involving 95% of one (1) core. Perineural invasion is present. E) RIGHT APEX LATERAL, BIOPSY: PROSTATIC ADENOCARCINOMA, Len score 4+4=8 (Grade Group 4), involving 95% of one (1) core. Perineural invasion is present. F) RIGHT APEX MED, BIOPSY: PROSTATIC ADENOCARCINOMA, [place] score 4+4=8 (Grade Group 4), involving 95% of one (1) core. Suspicious for invasion into extraprostatic soft tissue. Perineural invasion is present. G) LEFT BASE LATERAL, BIOPSY: PROSTATIC ADENOCARCINOMA, Len score 4+4=8 (Grade Group 4), involving 90% of one (1) core. Perineural invasion is present. H) LEFT BASE MED, BIOPSY: PROSTATIC ADENOCARCINOMA, [place] score 4+4=8 (Grade Group 4), involving 90% of one (1) core. Perineural invasion is present. I) LEFT MID LATERAL, BIOPSY: PROSTATIC ADENOCARCINOMA, Len score 4+4=8 (Grade Group 4), involving 15% of one (1) core. No perineural invasion. J) LEFT MID MED, BIOPSY: PROSTATIC ADENOCARCINOMA, [place] score 4+5=9 (Grade Group 5), involving 95% of one (1) core. Perineural invasion is present. K) LEFT APEX LATERAL, BIOPSY: PROSTATIC ADENOCARCINOMA, Len score 4+3=7 (Grade Group 3), involving 80% of one (1) core. [place] pattern 4 comprises 90% of the tumor. No perineural invasion L) LEFT APEX MED, BIOPSY: PROSTATIC ADENOCARCINOMA, Len score 4+5=9 (Grade Group 5), involving 95% of one (1) core. Perineural invasion is present. Labs: 11/24/2024 WBC 3.58, hemoglobin 14.0, platelet count 191, ANC 2.24, BUN 20, creatinine 1.2, calcium9.7, TB 0.7, AST 9, ALT 8, alkaline phosphatase 160, albumin 3.7, PSA is pending PSA testosteron 08/27/24 3.2 <3 08/04/24 1.9 07/21/20 0.02 <3 10/16/18 627.5 608 Imagin11/09/2024 PSMA PET scan: IMPRESSION 1. Metastatic lymphadenopathy in the right supraclavicular space, mediastinum and right hilum. 2. Right-sided pleural-based metastasis. 3. Multiple osseous metastases. 07/19/2020 bone density scan: Impression: Normal bone mineral density of the lumbar spine and left forearm. Osteopenia of the left hip with T score -1.8 10/16/18 CT chest: 1. There are no suspicious pulmonary nodules or thoracic lymphadenopathy. 2. A faint sclerotic focus within the left lateral seventh rib is noted. Although no correlate is noted on outside bone scan from September,, this lesion may represent site of metastasis. 10/11/2018 . Extensive PI-RADS 5 tumor replacing the majority of the prostate gland with extraprostatic extension anteriorly into the posterior aspect of the urinary bladder, posteriorly into the mesorectal fat, and superiorly into bilateral seminal vesicles. 2. Metastatic lymphadenopathy in the pelvis as seen on outside hospital CT. 3. Indeterminate subcentimeter peripherally enhancing lesions in the right iliac bone. Correlation with recently obtained bone scan is recommended. 09/16/2018 CT abdomen pelvis: Prostate enlargement nodular. Thickening of the right inguinal bladder floor raises possibility of tumor involvement. No evidence of LAD. On a secondary review: multiple suspicious lymph nodes taking up from pelvis to infrarenal vein level. 09/16/2018 bone scan: No definitive evidence of bony metastasis. Small faint increased uptake on low dorsal and lumbar spine. Very small focal uptake in the posterior right sixth rib may be related to old trauma. Assessment and Plan: Diagnosis: Prostatic adenocarcinoma, metastatic to regional lymph nodes Treatment: -10/16/2018 degarelix 240 mg -11/21/18 started abiraterone 1000 mg and prednisone 5 mg a day. -04/13/19 completion of IMRT to prostate Mr. Chris is 60 y/o M with diagnosis of prostate adenocarcinoma with metastases at least to pelvic lymph nodes. He has been treated in the manner of STAMPEDE trial with 2 years of androgen deprivation plus abiraterone with prednisone and radiation to primary prostate. He follows with at [facility] with plan restaging CT scan and pelvic MRI on October 17 and follow-up visit with Dr. Rincon and tentatively final leuprolide treatment on October 24. He would like to transfer his maintenance oncological care closer to his home due to COVID-19 situation. We will leave making a decision about continuation or discontinuation of his ADT and abiraterone and prednisone to Dr. Rincon. I will see him back in 3 months with blood work finalize his follow-up plan. 09/08/24 Mr. Chris followed with Dr. Rincon at [facility], due to more difficulties with transportation he would like to transfer his oncological care locally with us. He is currently on Lupron and enzalutamide 160 mg. Last PET scan was done on June 17, 2024, which showed new subcentimeter PSMA avid mediastinal lymph nodes and increased uptake in the bone L2 and T7. Given he is minimally symptomatic fromhis prostate cancer and his life expectancy more than a year I think Sipuleucel-T is a good option for him. We discussed about pros and cons of Sipuleucel-T The effectiveness of Provenge was studied in 512 patients with metastatic hormone treatment refractory prostate cancer in a randomized, double-blind, placebo-controlled, multicenter trial, which showed an increase in overall survival of 4.1 months. The median survival for patients receiving Provenge treatments was 25.8 months, as compared to 21.7 months for those who did not receive the treatment. Almost all of the patients who received Provenge had some type of adverse reaction. Common adverse reactions reported included chills, fatigue, fever, back pain, nausea, joint ache and headache. The majority of adverse reactions were mild or moderate in severity. Serious adverse reactions, reportedin approximately one quarter of the patients receiving Provenge, included some acute infusion reactions and stroke. Cerebrovascular events, including hemorrhagic and ischemic strokes, were observed in 3.5 percent of patients in the Provenge group compared with 2.6 percent of patients in the controlgroup. We discussed side effect particularly reaction to transfusion including fever, chills and pain, infection, stroke,. All questions were answered to patient's satisfaction. He is interested to proceed with Provenge. Informed verbal consent was obtained. 11/24/24 Travis completed Sipuleucel-T treatment 3 weeks ago. Tolerated treatment well. Today's PSA ispending. Restaging PSMA PET scan demonstrated Metastatic lymphadenopathy in the right supraclavicular space, mediastinum and right hilum. Right-sided pleural-based metastasis.Multiple osseous metastase Will continue current regiment with Lupron 22.5 mg and enzalutamide 160 mg a day. Will see him backin 3 months #Germline and somatic mutation testing: Not done yet, but we may consider upon progression. #Osteopenia: New calcium vitamin D supplementation, weightbearing exercise. #History of stroke: Residual deficit on the right side #Frequency/difficulties urinating: Takes tamsulosin intermittently Plan: 1. Continue Lupron 22.5 mg due to today 2. Continue enzalutamide 160 mg a day 3. Next visit with MD with CBC, CMP, PSA, testosterone and Lupron injection in 3 months The plan was discussed with the patient in details. All questions were answered to patient satisfaction. I would like to thank Dr. Null for allowing me to participate in the care of this wonderful gentleman. documented in this encounter Plan of Treatment Not on file documented as of this encounter Visit Diagnoses Diagnosis Malignant neoplasm of prostate metastatic to bone Malignant neoplasm of prostate Prostate cancer metastatic to multiple sites Malignant neoplasm of prostate Androgen deprivation therapy Encounter for therapeutic drug monitoring documented in this encounter Care Teams Union Steward Relationship Specialty Start Date End Date [place] [address] PCP - General Family Medicine 09/14/24 documented as of this encounter
--- OUTSIDE RECORDS SUMMARY | 2024-11-24 13:55 | XMS_ITS | Encounter Summary ---
Author Organization [facility] [place] [address] Care Team Providers Care Shuttle Threader Name Role Phone Laura Stephenson APRN Primary Care Provider [phone] Encounter Details Date Type Department Care Team (Latest Contact Info) Description 11/09/2024 Travel Social History Tobacco Use Types Packs/Day Years [...] from your doctor or pharmacy? Never 09/08/2024 [facility] Utilities Answer Date Recorded In the past 12 months has th e electric, gas, oil, or water company [...] any time in the past 12 m [facility], were you homeless or living in a jail (including now)? No 09/08/2024 Sex and Gender Information Value Date Recorded Sex Assigned at Male 10/17/2023 2:13 PM EST Gender Identity Male 10/17/2023 2:13 PM EST Sexual Orientation Lesbian or Gallo 10/17/2023 2: 13 PM EST documented as of this encounter Plan of Treatment Not on file documented as of this encounter Visit Diagnoses Not on filedocumented in this encounter Care Teams Shuttle Threader Relationship Specialty Start Date End Date Lauar Stephenson, JALEN [facility] [place] [address] PCP - General Family Medicine 09/14/24 documented as of this encounter
--- OUTSIDE RECORDS SUMMARY | 2024-11-24 13:55 | XMS_ITS | Encounter Summary ---
Author Organization [facility] Address [address] [place] [address] Care Team Providers Care Hospital Chaplain Name Role Phone Mima Null Primary Care Provid er Encounter Details Date Type Department Care Team (Late st Contact Info) Description 02/10/2021 Lab Requisition [facility] Pathology & Laboratory Medicine - [address] [address] Ana Harris, DO [address] [place], [place] [id number] Encounter for other general examination Social History Tobacco Use Types Packs/Day Years Used Date Smoking Tobacco: Never Assessed Interpersonal Safety Answer Date Record ed Physically Hurt Never 07/03/2020 Verbally Threaten Not on file 07/03/2020 Sex and Gender Information Value Date Recorded Sex Assigned at Not on file Legal Sex Male 8:21 EST Gender Identity Not on file Sexual Orientation Not on file documented as of this encounter Plan of Treatment Not on file documented as of this encounter Procedures Procedure Name Priority Date/Time Associated Diagnosis Comments SURGICAL PATHOLOGY Today 02/10/2021 12 :18 EST Encounter for other general examination documented in this encounter Results * SURGICAL PATHOLOGY (02/10/2021 12:18 EST) Final Diagnosis A. COLON, CECUM, POLYPS X2, BIOPSY: - Tubular adenomas. 02/13/2021 13:20 [facility] Attestation By the signature below, the attending physician certifies that they have 1) personally conducted a gross and/or microscopic examination of the described specimen(s), and/or personally interpreted the results of laboratory testing of the described specimen(s), and 2) personally rendered or confirmed the above diagnosis. 02/13/2021 13:20 [facility] at 1320 Clinical History History of colon polyps 02/13/2021 13:20 [facility] Gross Description A. Received in formalin labelled with proper patient identification (initials P, S) and cecal polyps x2 are 4 barnes tissue fragments (0.2 x 0.1 x 0.1 cm up to 0.8 x 0.2 x 0.1 cm). Entirely submitted in A1. SLIM NEVAREZ(ASCP) 02/11/2021 11:26 02/13/2021 13:20 [facility] Performing Lab [facility] 02/13/2021 13:20 [facility] Scanned Images 02/13/2021 13:20 [facility] Tissue CECUM STRUCTURE / Unknown 02/10/2021 12:18 EST 02/10/2021 22:35 EST us Ana Harris DO PATHOLOGY ORDERABLES Final Re sult [facility] [address] [place] [address] documented in this encounter Visit Diagnoses Diagnosis Encounter for other general examination documented in this encounter Care Teams Hospital Chaplain Relationship Specialty Start Date End Date Mima Null DO [address] [place] [phone] PCP - General 01/30/21 documented as of this encounter
--- OUTSIDE RECORDS SUMMARY | 2024-11-24 13:55 | XMS_ITS | Encounter Summary ---
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 Tom Welch MD [facility] [address] HEMATOLOGY [place] [address] [facility] [place] [address] Referral ID Status Reason Start Date Expiration Date V isits Requested Visits Authorized [id number] Authorized 09/08/2024 09/08/2025 99 103 Encounter Details Date Type Department Care Team (Latest Contact Info) Description 11/05/2024 8:00 AM EST - 11/05/2024 12:36 PM [facility] Hospital Encounter [place] [address] Hormone resistant prostate cancer; Malignant 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 Never 09/08/2024 [facility] Utilities Answer Date Recorded In the past [...] any time in the past 12 m [facility], were you homeless or living in a penitentiary (including now)? No 09/08/2024 Sex and Gender Information Value Date Recorded Sex Assigned at Male 10/17/2023 2:13 PM EST Gender Identity Male 10/17/2023 2:13 PM EST Sexual Orientation Lesbian or Gallo 10/17/2023 2: 13 PM EST documented as of this encounter Last Filed Vital Signs Vital Sign Reading Time Taken Comments Blood Pressure 130/66 11/05/2024 11:08 AM EST Pulse 59 11/05/2024 11:08 AM EST Temperature 37.4 ??C (99.3 ??F) 11/05/2024 11:[address] Respiratory Rate 18 11/05/2024 11:08 AM EST Oxygen Saturation 98% 11/05/2024 8:37 AM EST Inhaled Oxygen Concentration - - Weight - - Height - - Body Mass Index - - documented in this encounter Medications at Time of Discharge [...] as needed. documented as of this encounter Progress Notes * Deedee Crawford RN - 11/05/2024 11:23 AM EST PROVENGE INFUSION PROGRESS NOTE Mr. Chris presented to the Blood Donor Program today for Provenge infusion number 3 for Hormone resistant prostate cancer, Malignant neoplasm of prostate metastatic to bone. Product Disposition Form received from [employer]: Yes Product Disposition Form indicates Provenge is approved for infusion: Yes Provenge Lot Number: [id number] Product Expiration Date and Time: 11/05/241144 Patient government issued picture ID EXACTLY MATCHES name and date of on product label: Yes Verification on receipt by: Yes (ST) Allergies: Latex and Penicillins Sipleucel-T (PROVENGE) 50 million cells Patient ID, drug and dose verified at bedside prior to starting the infusion by Deedee Crawford RN and Denise Brenner RN. Infusion start time: 914 Infusion end time: 1038 Post infusion: Reactions: (description, time, intervention, and effectiveness) none. Reactions reported to Nikki: [X] N/A Mr. Chris was observed for 30 minutes post infusion. Post--transfusion education was provided prior to discharge. 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 Maximum dose of acetaminophen is 4,000 mg from all sources in 24 hours. When ordered for pain, acetaminophen should be given even when other ordered pain medications are indicated., Routine Given 11/05/2024 8:43 AM EST 325 mg diphenhydrAMINE (Benadryl) capsule 25 mg 25 mg, Oral, ONCE, 1 dose, On Beata 11/05/24 at 0830, To be given 30 minutes prior to infusion., Routine Given 11/05/2024 8:43 AM EST 25 mg famotidine (Pepcid) tablet 20 mg 20 mg, Oral, ONCE, 1 dose, On Beata 11/05/24 at 0830, To be given 30 minutes prior to infusion., Routine Given 11/05/2024 8:43 AM EST 20 mg loratadine (Claritin) tablet 10 mg 10 mg, Oral, ONCE, 1 dose, On Beata 11/05/24 at 0830, To be given 30 minutes prior to infusion., Routine Given 11/05/2024 8:43 AM EST 10 mg sipuleucel-T (Provenge) 50 million cell in lactated ringers 250 mL infusion 50 Million Cells, Intravenous, ONCE, 1 dose, On Beata 11/05/24 at 0900, Administer over 60 Minutes, Give pre-medications 30 minutes prior to infusion. Administer contents of bag over 60 minutes. Observe patients for 30 minutes after the infusion. Observe universal precautions when handling sipuleucel-T and leukapheresis material. Rate/Dose Change 11/05/2024 9:30 AM EST 250 mL/hr New Bag 11/05/2024 9:15 AM EST 50 Million Cells 75 mL/h r sodium chloride 0.9 % (flush) (BD PosiFlush Normal Saline 0.9) flush 20 mL 20 mL, Intercatheter, ONCE, 1 dose, On Beata 11/05/24 at 0830, Routine Given 11/05/2024 9:00 AM EST 20 mLs Given 11/05/2024 8:59 AM EST 20 mLs sodium chloride 0.9% infusion 100 mL, Intravenous, ONCE, 1 dose, On Beata 11/05/24 at 1000, When the product bag is empty, close the roller clamp, un-spike the product bag and spike the 100 mL bag of 0.9% normal saline and open the roller clamp. Infuse at least 50 mL to ensure all Provenge product is flushed through the line. New Bag 11/05/2024 10:25 AM EST 100 mLs 250 mL/hr documented in this encounter Care Teams Director Of Safety And Security Relationship Specialty Start Date End Date Laura Stephenson, [place] [address] PCP - General Family Medicine 09/14/24 documented as of this encounter
--- OUTSIDE RECORDS SUMMARY | 2024-11-24 13:55 | XMS_ITS | Encounter Summary ---
Author Organization [facility] Address [address] [place] [address] Care Team Providers Care Pelt Dropper Name Role Phone Unavailable Primary Care Provider Unavailabl e Encounter Details Date Type Department Care Team (Latest Contact Info) Description 10/07/2015 16:03 EST - 10/07/2015 23:59 EST Hospital Encounter [address] [address] Unknown, Provider, MD Discharge Disposition: Home or Self Care Social History Tobacco Use Types Packs/Day Years Used Date Smoking Tobacco: Never Assessed Sex and Gender Information Value Date Recorded Sex Assigned at Not on file Legal Sex Male 8:21 EST Gender Identity Not on file Sexual Orientation Not on file documented as of this encounter Discharge Disposition Disposition Code Departure Means Destination Home or Self Prison documented in this encounter Plan of Treatment Not on file documented as of this encounter Visit Diagnoses Not on filedocumented in this encounter
--- OUTSIDE RECORDS SUMMARY | 2024-11-24 13:55 | XMS_ITS | Encounter Summary ---
Author Organization [facility] Address [address] [place] [address] Care Team Providers Care Mattress Filler Name Role Phone Unknown, Provider Primary Care Provider Unava ilable Encounter Details Date Type Department Care Team (Latest Contact Info) Description 08/26/2018 10:57 EDT - 08/26/2018 23:59 EDT Hospital Encounter [address] [address] Unknown, Provider, Discharge Disposition: Home or Self Care Social History Tobacco Use Types Packs/Day Years Used Date Smoking Tobacco: Never Assessed Sex and Gender Information Value Date Recorded Sex Assigned at Not on file Legal Sex Male 8:21 EST Gender Identity Not on file Sexual Orientation Not on file documented as of this encounter Discharge Disposition Disposition Code Departure Means Destination Home or Self [facility] documented in this encounter Plan of Treatment Not on file documented as of this encounter Visit Diagnoses Not on filedocumented in this encounter Care Teams Mattress Filler Relationship Specialty Start Date End Date Unknown, ProviderMD PCP - General 10/08/15 01/29/21 documented as of this encounter
--- OUTSIDE RECORDS SUMMARY | 2024-11-24 13:55 | XMS_ITS | Encounter Summary ---
Author Organization [facility] [place] [address] Care Team Providers Care Retoucher Name Role Phone Laura Stephenson APRN Primary Care Provider [phone] Encounter Details Date Type Department Care Team (Latest Contact Info) Description 11/24/2024 Travel Social History Tobacco Use Types Packs/Day [...] from your doctor or pharmacy? Never 09/08/2024 [facility] Utilities Answer Date Recorded In the [...] any time in the past 12 m [facility], were you homeless or living in a correction (including now)? No 09/08/2024 Sex and Gender Information Value Date Recorded Sex Assigned at Male 10/17/2023 2:13 PM EST Gender Identity Male 10/17/2023 2:13 PM EST Sexual Orientation Lesbian or Gallo 10/17/2023 2: 13 PM EST documented as of this encounter Plan of Treatment Not on file documented as of this encounter Visit Diagnoses Not on filedocumented in this encounter Care Teams Retoucher Relationship Specialty Start Date End Date Laura Stephenson, JALEN Y[facility] [place] [address] PCP - General Family Medicine 09/14/24 documented as of this encounter
--- OUTSIDE RECORDS SUMMARY | 2024-11-24 13:55 | XMS_ITS | Encounter Summary ---
Author Organization [facility] Address [facility] [place] [address] Care Team Providers Care Cotton Picker Operator Name Role Phone Sachin, Laura Aguilar APRN Primary Care Provider [phone] Reason for Visit * Diagnostic Test (Routine) - Closed Specialty Diagnoses / Procedures Referred By Contac t Referred To Contact Radiology Diagnoses Malignant neoplasm of prostate metastatic to bone Procedures NM PET CT PSMA Prostate (Illuccix) Tom Welch MD [facility] [place] [address] [place] [address] Referral ID Status Reason Start Date Expiration Date V isits Requested Visits Authorized [id number] Closed Specialty Service Requested 09/08/2024 03/09/2026 1 1 Encounter Details Date Type Department Care Team (Latest Contact Info) Description 11/09/2024 1:56 PM EST - 11/09/2024 11:59 PM EST Hospital Encounter [place] [address] Tom Welch MD [facility] [place] [address] Discharge Disposition: Home Social History Tobacco Use [...] from your doctor or pharmacy? Never 09/08/2024 [facility] Utilities Answer Date Recorded In the [...] any time in the past 12 m [facility], were you homeless or living in a [facility] (including now)? No 09/08/2024 Sex and Gender [...] (Illuccix) (11/09/2024 3:37 PM EST) WORKSTATION ID [id number] RAD Anatomical Region Laterality Modality Positron Emissio n Tomography (PET) Impressions 11/10/2024 1:44 PM EST 1. ??Metastatic lymphadenopathy in the right supraclavicular space, mediastinum and right hilum. 2. ??Right-sided pleural-based metastasis. 3. ??Multiple osseous metastases. Thank you for referring this patient to [facility]. Preliminary report signed by: Sergio [...] who have questions please contact the health progressive care manager that requested your imaging first. ? Electronically signed by: Rajeev Osullivan MD, [facility] ([phone]), at 11/10/2024 1:44 PM Narrative 11/10/2024 1:44 PM EST EXAMINATION: NM [...] Thank you for referring this patient to [facility]. Preliminary report signed by: Sergio [...] patients who have questions please contactthe health progressive care manager that requested your imaging first. Electronically signed by: Rajeev Osullivan MD, [facility]([phone]), at 11/10/2024 1:44 PM Tom Welch MD IMG PET ORDERABLES documented in this encounter Visit Diagnoses Not on filedocumented in this encounter Care Teams Cotton Picker Operator Relationship Specialty Start Date End Date Laura Stephenson, JALEN [facility] [place] [address] PCP - General Family Medicine 09/14/24 documented as of this encounter
--- OUTSIDE RECORDS SUMMARY | 2024-11-24 13:55 | XMS_ITS | Encounter Summary ---
Author Organization [facility] [place] [address] Care Team Providers Care Physical Therapy Technician Name Role Phone Sachin, Laura Aguilar APRN Primary Care Provider [phone] Reason for Visit * Reason Onset Date Comments Other 11/12/2024 Cancer support lalito lima Encounter Details Date Type Department Care Team (Late st Contact Info) Description 11/12/2024 Telephone Hematology/Oncology at [address] [address] Ely Raymond, GLUE BONE CRUSHER OFFICE OF CARE MANAGEMENT Other (Cancer support groups) Social History Tobacco Use Types Packs/Day Years [...] from your doctor or pharmacy? Never 09/08/2024 [facility] Utilities Answer Date Recorded In the [...] any time in the past 12 m [facility], were you homeless or living in a fci (including now)? No 09/08/2024 Sex and Gender Information Value Date Recorded Sex Assigned at Male 10/17/2023 2:13 PM EST Gender Identity Male 10/17/2023 2:13 PM EST Sexual Orientation Lesbian or Gallo 10/17/2023 2: 13 PM EST documented as of this encounter Miscellaneous Notes * Telephone Encounter - Ely Raymond MSW - 11/12/2024 9:31 AM EST TC from [facility] requesting information re available caner support groups. Informed him of the in persongroup at [facility] as well as the virtual groups through [facility]. Community Resource documented in this encounter Plan of Treatment Not on file documented as of this encounter Visit Diagnoses Not on filedocumented in this encounter Care Teams Physical Therapy Technician Relationship Specialty Start Date End [place] [address] PCP - General Family Medicine 09/14/24 documented as of this encounter
--- OUTSIDE RECORDS SUMMARY | 2024-11-24 13:55 | XMS_ITS | Encounter Summary ---
Author Organization [facility] [place] [address] Care Team Providers Care Photographic Process Attendant Name Role Phone Laura Stephenson APRN Primary Care Provider [phone] Encounter Details Date Type Department Care Team (Latest Contact Info) Description 11/12/2024 Travel Social History Tobacco Use Types Packs/Day [...] from your doctor or pharmacy? Never 09/08/[address] [facility] Utilities Answer Date Recorded In the [...] any time in the past 12 m [facility], were you homeless or living in [...] on filedocumented in this encounter Care Teams Photographic Process Attendant Relationship Specialty Start Date End Date Laura Stephenson, JALEN Y[facility] [place] [address] PCP - General Family Medicine 09/14/24 documented as of this encounter
--- OUTSIDE RECORDS SUMMARY | 2024-11-24 13:55 | XMS_ITS | Referral Summary ---
Author Organization [facility] Address [address] [place] [address] Care Team Providers Care Dye Tub Tender Name Role Phone Mima Null Primary Care Provid er Social History Tobacco Use Types Packs/Day Years Used Date Smoking Tobacco: Never Assessed Interpersonal Safety Answer Date Record ed Physically Hurt Never 07/03/2020 Verbally Threaten Not on file 07/03/2020 Sex and Gender Information Value Date Recorded Sex Assigned at Not on file Legal Sex Male 8:21 EST Gender Identity Not on file Sexual Orientation Not on file Plan of Treatment Not on file Insurance [employer] MEDICARE Care Teams Dye Tub Tender Relationship Specialty Start Date End Date Mima Null DO [address] [place] [phone] PCP - General 01/30/21
--- OUTSIDE RECORDS SUMMARY | 2024-11-24 13:55 | XMS_ITS | Encounter Summary ---
Author Organization [facility] [place] [address] Care Team Providers Care Story Teller Name Role Phone Laura Stephenson APRN Primary Care Provider [phone] Reason for Visit * Reason Onset Date Comments Follow-up 10/26/2024 Dental clearance for biphosphonate therapy Encounter Details Date Type Department Care Team (Late st Contact Info) Description 10/26/2024 Telephone Hematology/Oncology at [address] [address] Lisa Gonzáles, RN Follow-up (Dental clearance for biphosphonate therapy) Social History Tobacco Use Types Packs/Day Years [...] from your doctor or pharmacy? Never 09/08/2024 [facility] Utilities Answer Date Recorded In the [...] any time in the past 12 m [facility], were you homeless or living in a retirement (including now)? No 09/08/2024 Sex and Gender Information Value Date Recorded Sex Assigned at Male 10/17/2023 2:13 PM EST Gender Identity Male 10/17/2023 2:13 PM EST Sexual Orientation Lesbian or Gallo 10/17/2023 2: 13 PM EST documented as of this encounter Miscellaneous Notes * Telephone Encounter - Lisa Gonzáles RN - 10/26/2024 2:25 PM EST Kala from [facility] called regarding a request for dental clearance for Hernandez tostart bisphosphonate therapy. He is receiving routine treatment there today for periodontal disease. According to his treatment history here he has not yet received zometa or xgeva, as of today he isnot scheduled to receive either of them in the future. His next office visit here is on 11/24 for provider visit and lupron injection. documented in this encounter Plan of Treatment Not on file documented as of this encounter Visit Diagnoses Not on filedocumented in this encounter Care Teams Story Teller Relationship Specialty Start Date End Date Laura Stephenson [place] [address] [place] [address] PCP - General Family Medicine 09/14/24 documented as of this encounter
--- OUTSIDE RECORDS SUMMARY | 2024-11-24 13:55 | XMS_ITS | Encounter Summary ---
Author Organization [facility] [place] [address] Care Team Providers Care Repeat Photocomposing Machine Operator Name Role Phone SachinLaura APRN Primary Care Provider [phone] Reason for Visit * Reason Onset Date Comments Other 11/24/2024 Dental clearence Encounter Details Date Type Department Care Team (Late st Contact Info) Description 11/24/2024 Telephone Hematology/Oncology at [address] [phone] Grace Hannon RN Other (Dental clearence) Social History Tobacco Use Types Packs/Day Years [...] from your doctor or pharmacy? Never 09/08/2024 [facility] Utilities Answer Date Recorded In the past 12 months has [employer], gas, oil, or water [employer] threatened to shut off services in your [...] time in the past 12 m [facility], were you homeless or living in a care home (including now)? No 09/08/2024 Sex and Gender Information Value Date Recorded Sex Assigned at Male 10/17/2023 2:13 PM EST Gender Identity Male 10/17/2023 2:13 PM EST Sexual Orientation Lesbian or Gallo 10/17/2023 2: 13 PM EST documented as of this encounter Miscellaneous Notes * Telephone Encounter - Grace Hannon RN - 11/24/2024 11:26 AM EST Called and spoke with [facility] dental office at [phone] that I would be faxing letterfrom Dr. Welch that pt was cleared for any dental procedures. Faxed letter to [phone] withconfirmed receipt. Gave copy of letter to pt and scanned into chart. documented in this encounter Plan of Treatment Not on file documented as of this encounter Visit Diagnoses Not on filedocumented in this encounter Care Teams Repeat Photocomposing Machine Operator Relationship Specialty Start Date End Date Laura [place] [address] PCP - General Family Medicine 09/14/24 documented as of this encounter
--- OUTSIDE RECORDS SUMMARY | 2024-11-24 13:55 | XMS_ITS | Clinical Summary ---
Author Organization [facility] Address [address] [place] [address] Care Team Providers Care Glove Examiner Name Role Phone Mima Null Primary Care [...] Orientation Not on file Plan of Treatment Health Maintenance Due Date Last Done Comments Hepatitis C Screen 1960 COVID-19 Vaccine (2023-25 season) 2024 RSV Immunization ( o r 60+ Years) (1 - 1-dose 75+ series) 02/18/2036 Insurance [facility] [place] [address] Care Teams Glove Examiner Relationship Specialty Start Date End Date Mima Null DO [address] [place] [phone] PCP - General 01/30/21
--- OUTSIDE RECORDS SUMMARY | 2024-11-24 13:55 | XMS_ITS | Encounter Summary ---
Author Organization [facility] [place] [address] Care Team Providers Care Shelter Advocate Name Role Phone Laura Stephenson APRN Primary Care Provider [phone] Encounter Details Date Type Department Care Team (Latest Contact Info) Description 10/28/2024 Travel Social History Tobacco Use Types Packs/Day [...] doctor or pharmacy? Never 09/08/2024 [facility] Utilities Answer Date Recorded In the [...] any time in the past [address] [facility], were you homeless or living in a m[facility] (including now)? No 09/08/2024 Sex and Gender Information Value Date Recorded Sex Assigned at Male 10/17/2023 2:13 PM EST Gender Identity Male 10/17/2023 2:13 PM EST Sexual Orientation Lesbian or Gallo 10/17/2023 2: 13 PM EST documented as of this encounter Plan of Treatment Not on file documented as of this encounter Visit Diagnoses Not on filedocumented in this encounter Care Teams Shelter Advocate Relationship Specialty Start Date End Date Laura Stephenson, JALEN Yari [place] [address] PCP - General Family Medicine 09/14/24 documented as of this encounter
--- OUTSIDE RECORDS SUMMARY | 2024-11-24 13:55 | XMS_ITS | Encounter Summary ---
[facility] [place] [address] Care Team Providers Care Relay Mechanic Name Role Phone Laura Stephenson APRN Primary Care Provider [phone] Encounter Details Date Type Department Care Team (Late st Contact Info) Description 10/22/2024 Telephone [place]ematology [place] [address] Maria Guadalupe Mart, RN Social History Tobacco Use Types Packs/Day Years [...] your doctor or pharmacy? Never 09/08/2024 [facility] Utilities Answer Date Recorded In the past 12 months has [employer], [employer], oil, or water [employer] threatened to shut off services in your [...] any time in the past 12 m [facility], were you homeless or living in a care home (including now)? No 09/08/2024 Sex and Gender Information Value Date Recorded Sex Assigned at Male 10/17/2023 2:13 PM EST Gender Identity Male 10/17/2023 2:13 PM EST Sexual Orientation Lesbian or Gallo 10/17/2023 2: 13 PM EST documented as of this encounter Miscellaneous Notes * Telephone Encounter - Maria Guadalupe Matr RN - 10/22/2024 3:33 PM EST Message received from unit secretary: Regarding: instructions [phone] - patient called - had his provenge treatment today. They gave him Pepcid to take but told him to call here for instructions on how to take it Call placed to patient. Patient states he is not experiencing any heartburn. But was informed by someone that he needs to continue taking Pepcid. He was instructed to take Pepcid before his provenge treatment. He denies any heartburn, and will continue the Pepcid. documented in this encounter Plan of Treatment Not on file documented as of this encounter Visit Diagnoses Not on filedocumented in this encounter Care Teams Relay Mechanic Relationship Specialty Start Date End Date Laura [place] [address] PCP - General Family Medicine 09/14/24 documented as of this encounter
--- OUTSIDE RECORDS SUMMARY | 2024-11-24 13:55 | XMS_ITS | Encounter Summary ---
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 Hospital Encounter [place] [address] Hormone resistant prostate cancer; Malignant [...] from your doctor or pharmacy? Never 09/08/2024 [facility] Utilities Answer Date Recorded In the [...] any time in the past 12 m [facility], were you homeless or living in a prison (including now)? 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 Malignant neoplasm of prostate documented in this encounter Administered Medications Inactive Administered Medications - up to 3 most recent administrations Medication Order MAR Action Action Date Dose Rate Site heparin (porcine) (1,000 units/mL) injection 4,000 Units 4,000 Units, Intercatheter, ONCE, 1 dose, On Sat10/28/24 at 1115, After flushing dual lumen catheter with Sodium Chloride 0.9%, instill heparin 1,000 units/mL to length of catheter, credit risk officer, Routine Given 10/28/2024 11:15 AM EST 3,800 Units sodium chloride 0.9 % (flush) (BD PosiFlush Normal Saline 0.9) flush 20 mL 20 mL, Intercatheter, ONCE, 1 dose, On Sat10/28/24 at 1115, Routine Given 10/28/2024 11:15 AM EST 20 mLs documented in this encounter Care Teams Paper Latcher Relationship Specialty Start Date End Date Laura Stephen[place] [address] PCP - General Family Medicine 09/14/24 documented as of this encounter
--- OUTSIDE RECORDS SUMMARY | 2024-11-24 13:55 | XMS_ITS | Encounter Summary ---
Author Organization [facility] Address [address] [place] [address] Care Team Providers Care Statistical Reporting Analyst Name Role Phone Unknown, Provider Primary Care Provider Unazak ilable Encounter Details Date Type Department Care Team (Late st Contact Info) Description 10/07/2015 Results Only [facility] [phone] Cayden Vallejo, DO [address] [place] [address] Social History Tobacco Use Types Packs/Day Years [...] Priority Date/Time Associated Diagnosis Comments SURGICAL PATHOLOGY Routine 10/07/2015 8:22 EST documented in this encounter Results * SURGICAL PATHOLOGY (10/07/2015 8:22 EST) Pathology Report: SURGICAL PATHOLOGY REPORT Reports generated via electronic interface contain original data; however they are lacking the format of the original report. Caution should be taken when reading/interpret ing unformatted reports. Name: ? GALO CHRIS ? Accession #: ? [id number] ? : ? 1960 (Age: 55) ??M ? Collect Date: ? 10/07/2015 ? Location: ? [facility] ? Receive Date: ? 10/08/2015 ? Provider: CAYDEN VALLEJO DO Copy to: JESSICA OCONNOR MD ? Final Pathologic Diagnosis: COLON, DISTAL SIGMOID, POLYP, BIOPSY: - ??Fragments of traditional serrated adenoma. Document reviewed and electronically signed by: VERNELL MEREDITH MD Report ??Date: 10/13/2015 17:18 By the signature above, the attending physician certifies that he/she has personally conducted a gross and/or microscopic examination of the described specimens and rendered or confirmed the above diagnosis. Specimen(s) Received: Distal sigmoid polyp Clinical History: Colon CA screening Gross Description: ? Received in formalin labelled with proper patient identification (initials P, S) and distal sigmoid polyp are six pink-barnes tissues (0.3 x 0.2 x 0.2 cm to 0.7 x 0.4 x 0.3 cm). Entirely submitted in 1 and 2. Lilia Olson 10/10/2015 10:58 AM End of Report [facility] 10/07/2015 8:22 EST 10/08/2015 8:22 EST us Cayden Vallejo DO PATHOLOGY ORDERABLES Final Res ult [facility] [address] [place] [address] documented in this encounter Visit Diagnoses Not on filedocumented in this encounter Care Teams Statistical Reporting Analyst Relationship Specialty Start Date End Date Unknown, Provider, PCP - General 10/08/15 01/29/21 documented as of this encounter
--- OUTSIDE RECORDS SUMMARY | 2024-11-24 13:55 | XMS_ITS | Encounter Summary ---
Author Organization [facility] Address [facility] [place] [address] Care Team Providers Care Sample Selector Name Role Phone Laura Stephenson APRN Primary Care Provider [phone] Reason for Visit * Reason Comments Injections * Treatment/Therapy Plan Authorization (Routine) - Authorized Specialty Diagnoses / Procedures Referred By Shaniqua stewart Referred To Contact Hematology and Oncology Diagnoses Malignant neoplasm of prostate metastatic to bone Tom Welch MD [facility] [place] [address] [facility] Onc Infusion [address] [place] [phone] Referral ID Status Reason Start Date Expiration Date V isits Requested Visits Authorized [id number] Authorized 09/08/2024 09/08/2025 99 99 Encounter Details Date Type Department Care Team (Late st Contact Info) Description 11/24/2024 10:00 AM EST Infusion Hematology Oncology at [address] [address] Malignant neoplasm of prostate metastatic to bone Social History Tobacco Use Types Packs/Day Years [...] from your doctor or pharmacy? Never 09/08/2024 [facility] Utilities Answer Date Recorded In the past [...] money to buy more. Never true 09/08/20 Within the past 12 months, t he [...] any time in the past 12 m [facility], were you homeless or living in a fpc (including now)? No 09/08/2024 Sex and Gender Information Value Date Recorded Sex Assigned at Male 10/17/2023 2:13 PM EST Gender Identity Male 10/17/2023 2:13 PM EST Sexual Orientation Lesbian or Gallo 10/17/2023 2: 13 PM EST documented as of this encounter Progress Notes * Lisa Gonzáles RN - 11/24/2024 10:00 AM EST Infusion Note Diagnosis:Prostate Cancer Treatment: Lupron Injection Lupron injected in right gluteal Patient instructed on side effects of Lupron. Patient states understanding of teaching, Patient aware to call clinic with any questions or concerns. Plan: Return to clinic as scheduled. documented in this encounter Plan of Treatment Not on file documented as of this encounter Visit Diagnoses Diagnosis Malignant neoplasm of prostate metastatic to bone Malignant neoplasm of prostate documented in this encounter Administered Medications Inactive Administered Medications - up to 3 most recent administrations Medication Order MAR Action Action Date Dose Rate Site leuprolide (Lupron Depot) 22.5 mg (3 month) intramuscular syringe kit 22.5 mg 22.5 mg, Intramuscular, ONCE, 1 dose, On Sat11/24/24 at 1115, Routine, This agent is restricted to outpatient use. Is this drug being given as an outpatient? Yes Given 11/24/2024 11:11 AM EST 22.5 mg Right Gluteal documented in this encounter Care Teams Sample Selector Relationship Specialty Start Date End Date Laura Stephenson, NUMBERER AND [place] [place] [address] PCP - General Family Medicine 09/14/24 documented as of this encounter
--- OUTSIDE RECORDS SUMMARY | 2024-11-24 13:55 | XMS_ITS | Encounter Summary ---
Author Organization [facility] [place] [address] Care Team Providers Care Light Rail Transit Operator Name Role Phone Laura Stephenson APRN Primary Care Provider [phone] Encounter Details Date Type Department Care Team (Latest Contact Info) Description 11/05/2024 Travel Social History Tobacco Use Types Packs/Day [...] from your doctor or pharmacy? Never 09/08/2024 [facility] Utilities Answer Date Recorded In the [...] any time in the past 12 m [facility], were you homeless or living in a intermediate (including now)? No 09/08/2024 Sex and Gender Information Value Date Recorded Sex Assigned at Male 10/17/2023 2:13 PM EST Gender Identity Male 10/17/2023 2:13 PM EST Sexual Orientation Lesbian or Gallo 10/17/2023 2: 13 PM EST documented as of this encounter Plan of Treatment Not on file documented as of this encounter Visit Diagnoses Not on filedocumented in this encounter Care Teams Light Rail Transit Operator Relationship Specialty Start Date End Date Laura Stephenson, JALEN Yari [facility] [place] [address] PCP - General Family Medicine 09/14/24 documented as of this encounter
--- OUTSIDE RECORDS SUMMARY | 2024-11-24 13:55 | XMS_ITS | Encounter Summary ---
Author Organization [facility] Address [facility] [place] [address] Care Team Providers Care Roving Tester Laboratory Name Role Phone SachinLaura APRN Primary Care Provider [phone] Reason for Referral * Diagnostic Test (Routine) - Closed Specialty Diagnoses / Procedures Referred By Contac t Referred To Contact Radiology Diagnoses Malignant neoplasm of prostate metastatic to bone Procedures IR Line or Tube Removal in Recovery Room Tom Welch MD [facility] [address] [place] [address] [place] [address] Referral ID Status Reason Start Date Expiration Date V isits Requested Visits Authorized [id number] Closed Specialty Service Requested 09/24/2024 03/25/2026 1 1 Reason for Visit * Diagnostic Test (Routine) - Closed Specialty Diagnoses / Procedures Referred By Contac t Referred To Contact Radiology Diagnoses Malignant neoplasm of prostate metastatic to bone Procedures IR Line or Tube Removal in Recovery Room Tom Welch MD [facility] [place] [address] [facility] [place] [address] Referral ID Status Reason Start Date Expiration Date V isits Requested Visits Authorized [id number] Closed Specialty Service Requested 09/24/2024 03/25/2026 1 1 Encounter Details Date Type Department Care Team (Latest Contact Info) Description 11/05/2024 12:37 PM EST - 11/05/2024 11:59 PM EST Hospital Encounter Radiology at [facility] [place] [id number] Tom Welch MD [facility] [place] [address] Malignant 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 Never 09/08/2024 [facility] Utilities Answer Date Recorded In the [...] in the past 12 m [facility], were you homeless or living in a alf (including now)? No 09/08/2024 Sex and Gender Information Value Date Recorded Sex Assigned at Male 10/17/2023 2:13 PM EST Gender Identity Male 10/17/2023 2:13 PM EST Sexual Orientation Lesbian or Gallo 10/17/2023 2: 13 PM EST documented as of this encounter Discharge Instructions * Discharge Instructions* Dariel Monteiro LPN - 11/05/2024 1:44 PM EST [facility] Vascular and Interventional Radiology Discharge Instructions For Your Puncture Site Activity and Diet: Go Home and rest quietly for the remainder of the day. You may resume your normal activities tomorrow. Resume your usual diet after the procedure. Bandage: There is a sterile dressing over the puncture site consisting of small gauze with a clear dressing (Tegaderm). This dressing should be left in place for 24 hours. If the clear dressing becomes loose you should place tape over the edges to secure it in place. Bathing: Do not take a shower until 24 hours after your procedure; after this time you may shower with the dressing in place, then remove it and pat your skin dry. You may use a bandaid to cover the site if there is any drainage. When to call your healthcare provider: If you notice bleeding or a bulge from the puncture site, you should apply firm pressure over the site for 10-15 minutes, keeping the site covered and call your doctor. If you are still bleeding after 10-15 minutes, reapply pressure, and have someone drive you to the nearest Emergency Department, or call 911. If you develop pain, redness, drainage or swelling at or around the puncture site. If you develop fever equal to or greater than 101F and/or shaking chills. When to call the Interventional Radiology Department: Please call with any questions or concerns. If it is during regular office hours, please call [phone]. If it is after regular office hours, or on weekends or holidays, please call [phone] and ask to speak to the Belt Sewer labor economist for Interventional Radiology. You have received medication during your procedure to help lessen anxiety and keep you comfortable.These medications affect judgement and reaction time. We recommend that you do not drive, operate equipment, sign any important documents, or smoke unattended for 24 hours following your procedure. Because of the sedation, be careful on stairs, as you may be unsteady on your feet. You may resume your regular diet as tolerated. IV site -- slight redness, or tenderness is normal, you can use a warm compress. If tenderness and redness increases or foul drainage occurs, please contact your M. D. Revised 12/16/15 documented in this encounter Medications at Time [...] as needed. documented as of this encounter Miscellaneous Notes * Brief Op Note - Cali Khan DO - 11/05/2024 4:31 PM EST Interventional Radiology Procedure Note Procedure: Tunneled central venous catheter explant Indication: discontinue durable assisted central venous access Pre-procedure: Informed consent for the procedure including risks, benefits and alternatives was obtained and time-out was performed prior to the procedure. The site was prepared and draped using sterile barrier technique including sterile gloves, cap, mask, hand hygiene and cutaneous antisepsis. Sedation: None Technique: Local anesthetic was administered at the catheter exit site. The catheter cuff was identified and freed from subcutaneous tissue with a combination of traction and blunt dissection. Catheter was withdrawn intact from the tunnel site. Hemostasis was achieved with manual compression. Cleanand sterile dressing applied. Medications: Lidocaine 1% <10 cc subcutaneous Contrast: None Fluoroscopy time: None Estimated blood loss: <5 mL Complications: No immediate Impression: Removal of right internal jugular, Medcomp Hemo-Flow 14.5 F 24 cm step-tip, cuffed hemodialysis catheter in its entirety. Plan: Patient to IR recovery unit, may discharge when meets criteria. Resident: Cali Khan DO Attending of Record: Manny Moses MD 11/05/2024 documented in this encounter Plan of Treatment Not on file documented as of this encounter Procedures Procedure Name Priority Date/Time Associated Diagnosis Comments IR LINE OR TUBE REMOVAL IN RECOVERY ROOM Routine 11/05/2024 2:00 PM EST Malignant neoplasm of prostate metastatic to bone documented in this encounter Results * IR Line or Tube Removal in Recovery Room (11/05/2024 2:00 PM EST) Anatomical Region Laterality Modality X-Ray Angiograph y Narrative 11/15/2024 5:34 PM EST Table formatting from the original result was not included. Images from the original result were not included. Interventional Radiology Procedure Note Procedure: Removal of tunneled central venous catheter. Indication: discontinue durable assisted central venous access Pre-procedure: Informed consent for the procedure including risks, benefits and alternatives was obtained and time-out was performed prior to the procedure. The site was prepared and draped using sterile barrier technique including sterile gloves, cap, mask, hand hygiene and cutaneous antisepsis. ?? Technique: Local anesthetic was administered at the catheter exit site. The catheter cuff was identified and freed from subcutaneous tissue with a combination of traction and blunt dissection. Catheter was withdrawn intact from the tunnel site. Hemostasis was achieved with manual compression. Clean and sterile dressing applied. Medications: Lidocaine 1% <10 cc subcutaneous. Estimated blood loss: <5 mL Complications: No immediate Impression: Removal of right internal jugular Medcomp Hemo-Flow 14.5 F 24 cm hemodialysis catheter in its entirety. Resident: Cali Khan DO Attending of Record: Manny Moses MD, not present. Tom Welch MD IMG IR ORDERABLES documented in this encounter Visit Diagnoses Diagnosis Malignant neoplasm of prostate metastatic to bone Malignant neoplasm of prostate documented in this encounter Care Teams Roving Tester Laboratory Relationship Specialty Start Date End Date Laura Stephenson, ASSISTANT MANAGER OF OPERATIONS [address] [place] [address] PCP - General Family Medicine 09/14/24 documented as of this encounter
--- OUTSIDE RECORDS SUMMARY | 2024-11-24 13:55 | XMS_ITS ---
Author Organization [facility] Address [facility] [place] [address] Care Team Providers Care Collateral Analyst Name Role Phone Laura Stephenson APRN Primary Care Provider Active Problems Problem Noted Date Diagnosed Date Malignant neoplasm of prostate metastatic to bon e 09/08/2024 Hormone resistant prostate cancer 09/08/2024 Spasticity due to old stroke 04/11/2023 Assessment & Plan (04/11/2023 10:06 AM EDT): You were seen to address the main complaint of knee pain, and my assessment is notable for spasticity in the upper and lower extremities. Mild weakness in the upper and lower extremities on the right that was previously affected by the stroke in 2013. Examination of your gait or your walking is notable for the fact that you have a lot of ankle plantarflexion that caused you to walk on your toes and drag your right foot. It is also affecting the way you bear weight on your right knee and I think that is part of the reason for the right knee pain. In order to treat your right knee pain, I think you need to demonstrate proper mechanics of weightbearing when you are using the brace for your right leg. I would like an assessment from a physical therapy program that can assess your walking while wearing the brace to make sure that you are properly placing your foot and bearing weight without causing stress on the knee. I can make a referral to physical therapy, and in the meantime of the encourage you to try to use the brace. If that is not successful, we may need to inject Botox injections or try oral medications that relaxes the ankle so that it fits into the brace more easily. Hypertension 10/15/2019 Prostate cancer 10/15/2018 Pruritus 05/22/2016 Current Oncology Plans Leuprolide (Lupron Depot) Injection ([facility], [facility]LEX[facility], JES, [facility], [facility], [place], [facility]) Adult* Plan Start Date:11/24/2024 Plan Provider:Tom Welch MD Linked Problems Malignant neoplasm of prosta te metastatic to bone Treatment Medications No medications scheduled. Sipuleucel-T (Provenge) Infusion ([facility])* Plan Start Date:09/17/2024 Plan Provider:Tom Welch MD Linked Problems Hormone resistant prostate c ancerMalignant neoplasm of prostate metastatic to bone Treatment Medications No medications scheduled. Past Plans No past plan information found. Radiation Treatments * No radiation treatments are documented for this patient in [facility]. Treatments may have been administered in another system.
--- OUTSIDE RECORDS SUMMARY | 2024-11-24 13:55 | XMS_ITS | Clinical Summary ---
Author Organization [facility] Address [facility] [place] [address] Care Team Providers Care Shader And Toner Name Role Phone Laura Stephenson APRN Primary Care Provider [phone] Allergies Active Allergy Reactions Criticality Noted Date Comments Latex 08/03/2020 Penicillins 08/03/2020 Medications Medication Sig Dispensed Refills Start Date End Date Status clopidogrel (PLAVIX) 75 mg tablet Take 1 tablet by mouth daily. 30 tablet 0 04/07/2014 Active lisinopril (PRINIVIL;ZESTRIL) 40 mg tablet Take 1 tablet by mouth daily. Would hold off on this for 2 weeks after discharge and start partial dose at that time. 30 tablet 04/07/2014 Active amLODIPine (NORVASC) 10 mg tablet Take 1 tablet by mouth daily. Would slowly add this back on after a month from discharge. 30 tablet 04/07/2014 Active tamsulosin (Flomax) 0.4 mg Capsule Take 0.4 mg by mouth as needed. Active sertraline (Zoloft) 25 mg tablet TAKE ONE TABLET BY MOUTH EVERY DAY FOR DEPRESSION AND ANXIETY - COMBINE WITH 50MG TABLETS FOR A TOTAL OF 75MG DAILY 03/20/2023 Active sertraline (Zoloft) 50 mg tablet Take 50 mg by mouth daily. 01/30/2023 Active enzalutamide (Xtandi) 40 mg tablet Take 160 mg by mouth daily. Take without regard to food. Call clinic before/prior to starting medication/script. Active Active Problems Problem Noted Date Diagnosed Date [...] was previously affected by the stroke in 2014. Examination of your gait or your walking [...] Hypertension 10/15/2019 Prostate cancer 10/15/2018 Pruritus 05/22/2016 Encounters Date Type Department Care Team Description 11/24/2024 10:00 AM EST Infusion Hematology Oncology at [address] [phone] Malignant neoplasm of prostate metastatic to bone 11/24/2024 9:30 AM EST Office Visit Hematology/Oncolog y at [address] [phone] Tom Welch MD Burns, Kimberly A, SERVICE CENTER COORDINATOR Malignant neoplasm of prostate metastatic to bone; Prostate cancer metastatic to multiple sites; Androgen deprivation therapy 11/24/2024 Telephone Hematology/Oncolog y at [address] [phone] Grace Hannon RN Other (Dental clearence) 11/24/2024 Travel 11/12/2024 Travel 11/12/2024 Telephone Hematology/Oncolog y at [address] [phone] Ely Raymond, PROGRESSIVE DIE MAKER Other (Cancer support groups) 11/09/2024 1:56 PM EST - 11/09/2024 11:59 PM EST Hospital Encounter [place] [address] Tom Welch MD Discharge Disposition: Home 11/09/2024 1:56 PM EST - 11/09/2024 11:59 PM EST Hospital Encounter [place] [address] Tmo Welch MD Malignant neoplasm of prostate metastatic to bone Discharge Disposition: Home 11/09/2024 Travel 11/05/2024 12:37 PM EST - 11/05/2024 11:59 PM EST Hospital [place] [address] Tom Welch MD Malignant neoplasm of prostate metastatic to bone Discharge Disposition: Home 11/05/2024 8:00 AM EST - 11/05/2024 12:36 PM EST Hospital Encounter Blood [place] [address] Hormone resistant prostate cancer; Malignant neoplasm of prostate metastatic to bone Discharge Disposition: Home 11/05/2024 Travel 10/28/2024 10:06 AM EST - 10/28/2024 11:59 PM EST Hospital Encounter Blood [place] [address] Hormone resistant prostate cancer; Malignant neoplasm of prostate metastatic to bone Discharge Disposition: Home 10/28/2024 Travel 10/26/2024 Telephone Hematology/Oncolog y at [address] [phone] Lisa Gonzáles RN Follow-up (Dental clearance for biphosphonate therapy) 10/22/2024 8:10 AM EST - 10/22/2024 11:59 PM EST Hospital Encounter [place] [address] Hormone resistant prostate cancer; Malignant neoplasm of prostate metastatic to bone Discharge Disposition: Home 10/22/2024 Telephone Hematology and Oncology at [place] [phone] Maria Guadalupe Mart RN 10/22/2024 Travel 10/15/2024 10:06 AM EST - 10/15/2024 11:59 PM EST Hospital Encounter Blood [place] [address] Hormone resistant prostate cancer; Malignant neoplasm of prostate metastatic to bone Discharge Disposition: Home 10/15/2024 Travel 10/08/2024 8:03 AM EST - 10/08/2024 11:59 PM EST Hospital Encounter Blood [place] [address] Malignant neoplasm of prostate metastatic to bone; Hormone resistant prostate cancer Discharge Disposition: Home 10/08/2024 Travel 10/01/2024 9:53 AM EDT - 10/01/2024 11:59 PM EDT Hospital Encounter Blood [place] [address] Prostate cancer; Hormone resistant prostate cancer; Malignant neoplasm of prostate metastatic to bone Discharge Disposition: Home 10/01/2024 Telephone Hematology/Oncolog y at [address] [phone] Ludivina Davis 10/01/2024 Travel 09/25/2024 [place] [address] Estella Sánchez PA 09/24/2024 10:06 AM EDT - 09/24/2024 11:59 PM EDT Hospital Encounter Blood [place] [address] Hormone resistant prostate cancer; Malignant neoplasm of prostate metastatic to bone Discharge Disposition: Home 09/24/2024 Travel 09/22/2024 Notes Only Hematology and Oncology at [place] [phone] Eli Kemp, PROGRESSIVE DIE MAKER 09/21/2024 Notes Only Hematology/Oncolog y at [address] [phone] Ely Raymond, PROGRESSIVE DIE MAKER 09/21/2024 Travel 09/17/2024 10:04 AM EDT - 09/17/2024 11:59 PM EDT Hospital Encounter Blood [place] [phone] Hormone resistant prostate cancer; Malignant neoplasm of prostate metastatic to bone Discharge Disposition: Home 09/17/2024 Travel 09/15/2024 Telephone Hematology and Oncology at [place] [phone] Poppy Rosenthal, RN Questions 09/14/2024 8:31 AM EDT - 09/14/2024 11:59 PM EDT Hospital [place] [address] Tom Welch MD Malignant neoplasm of prostate metastatic to bone Discharge Disposition: Home 09/14/2024 Telephone Hematology and Oncology at [place] [phone] Poppy Rosenthal, DAVID Medical Care Coordination 09/14/2024 Travel 09/10/2024 Notes Only [place]ology [place] [phone] Letha Torres, RN 09/09/2024 [place] [phone] Emil Larson, PA 09/08/2024 2:00 PM EDT Office Visit Hematology/Oncolog y at [address] [phone] Tom Welch MD Burns, Kimberly A, SERVICE CENTER COORDINATOR Malignant neoplasm of prostate metastatic to bone (Primary Dx) 09/08/2024 Telephone Hematology and Oncology at [facility] [place] [phone] Letha Torres, RN Medical Care Coordination (Provenge ) 09/08/2024 Travel from Last 3 Months Immunizations Name Administration Dates Next Due Influenza Trivalent, Preservative Free 4 Social History Tobacco Use Types Packs/Day Years [...] from your doctor or pharmacy? Never 09/08/2024 [facility] Utilities Answer Date Recorded In the past 12 months has e [employer], gas, oil, or water [employer] threatened to shut off services in your [...] any time in the past 12 m [facility], were you homeless or living in a prison (including now)? No 09/08/2024 Sex and Gender Information Value Date Recorded Sex Assigned at Male 10/17/2023 2:13 PM EST Gender Identity Male 10/17/2023 2:13 PM EST Sexual Orientation Lesbian or Gallo 10/17/2023 2: 13 PM EST Last Filed Vital Signs Vital Sign Reading [...] Mass Index 24.81 11/24/2024 10:13 AM EST Plan of Treatment Health Maintenance Due Date Last Done Comments CT Colonography 1961 Colonoscopy 1961 Colorectal Cancer Screening 1961 FIT DNA 1961 FIT 1961 Sigmoidoscopy (10 year) with FIT yearly 1961 Sigmoidoscopy 1961 HIV screen 1979 Hepatitis C Screening 1979 Tetanus/Diphtheria/Pertussis Vaccines (1 - Tdap) 02/18/1980 Zoster vaccine (1 of 2) 2011 Advance Directive 02/18/2016 Lipid Screening 04/06/2019 04/06/2014 Diabetes Screening (HgbA1C o r Glucose) Discontinued 04/06/2014, 04/06/2014, 04/05/2014 Covid-19 Vaccine Completed 09/01/2024, 02/05/2024 Influenza (Flu) vaccine Completed 09/22/2024 Procedures Procedure Name Priority Date/Time Associated Diagnosis Comments LAB SCAN 11/24/2024 12:00 AM EST LAB SCAN 11/24/2024 12:00 AM EST NM PET CT PSMA PROSTATE (ILLUCCIX) Routine 11/09/2024 3:37 PM EST Malignant neoplasm of prostate metastatic to bone IR LINE OR TUBE REMOVAL IN RECOVERY ROOM Routine 11/05/2024 2:00 PM EST Malignant neoplasm of prostate metastatic to bone LAB SCAN 09/29/2024 12:00 AM EDT LAB SCAN 09/29/2024 12:00 AM EDT IR DIALYSIS ACCESS - TUNNELED LINE Routine 09/14/2024 11:07 AM EDT Malignant neoplasm of prostate metastatic to bone LAB SCAN 09/08/2024 12:00 AM EDT LAB SCAN 09/08/2024 12:00 AM EDT HDL/CHOL PROFILE Routine 04/06/2014 5:20 AM EDT HEMOGLOBIN A1C Routine 04/06/2014 5:20 AM EDT from Last 3 Months or Most Recently Relevant to Health Maintenance Results * Scan Doc: Lab (11/24/2024 12:00 AM EST) Only the most recent of6 resultswithin the time period is included. Narrative 11/24/2024 12:00 AM EST Ordered by an unspecified provider. Scanning Provider MEDIA MGR SCAN EXT O RDR/RSLT * NM PET CT PSMA Prostate (Illuccix) (11/09/2024 3:37 PM EST) WORKSTATION ID [id number] RAD Anatomical Region Laterality Modality Positron Emissio n Tomography (PET) Impressions 11/10/2024 1:44 PM EST 1. ??Metastatic lymphadenopathy in the right supraclavicular space, mediastinum and right hilum. 2. ??Right-sided pleural-based metastasis. 3. ??Multiple osseous metastases. Thank you for referring this patient to [facility]. Preliminary report signed by: Sergio [...] who have questions please contact the health critical care specialist that requested your imaging first. ? Electronically signed by: Rajeev Osullivan MD, [facility] ([phone]), at 11/10/2024 1:44 PM Narrative 11/10/2024 1:44 [...] Thank you for referring this patient to [facility]. Preliminary report signed by: Sergio [...] patients who have questions please contactthe health critical care specialist that requested your imaging first. Electronically signed by: Rajeev Osullivan MD, [facility]([phone]), at 11/10/2024 1:44 PM Tom Welch MD IMG PET ORDERABLES * IR Line or Tube Removal in Recovery Room (11/05/2024 2:00 PM EST) Anatomical Region Laterality Modality X-Ray Angiograph y Narrative 11/15/2024 5:34 PM EST Table formatting from the original result was not included. Images from the original result were not included. Interventional Radiology Procedure Note Procedure: Removal of tunneled central venous catheter. Indication: discontinue durable prison central venous access Pre-procedure: Informed consent for [...] present. Tom Welch MD IMG IR ORDERABLES * IR Dialysis Access - Tunneled Line (09/14/2024 11:07 AM EDT) Anatomical Region Laterality Modality Abdomen X-Ray Angiograph y Narrative 09/15/2024 2:29 PM EDT Interventional Radiology Procedure Note Procedure: Tunneled hemodialysis catheter implant ?? Indication: Prostate cancer, durable prison central venous access for blood collection for Provenge therapy Pre-procedure: Informed consent for the procedure including risks, benefits and alternatives was obtained and time-out was performed prior to the procedure. Maximum sterile barrier technique was used throughout the procedure. Sedation: Due to the painful nature of the procedure, patient received split doses of intravenous ??midazolam and fentanyl from the interventional radiology nurse while pulse, pressure, and oxygen saturation were continuously monitored. Technique: The patient's neck was sonographically evaluated for potential access sites, and the right internal jugular vein was determined to be patent. Local anesthetic was administered. The vein was accessed via real-time ultrasound and micropuncture set with 21 gauge needle and a permanent image was stored. A 0.018 wire was advanced into superior vena cava. The remainder of the procedure was performed with fluoroscopic guidance. A 4 F introducer sheath was placed and the wire exchanged for a 0.035 J wire. The wire was advanced into the inferior vena cava. Lidocaine was then infiltrated subcutaneously in a caudal-lateral direction from the venotomy. A 1 cm incision was made on the anterior chest. A trocar was used to advance the catheter subcutaneously to the venous access site. The venotomy was dilated in serial fashion and a peel-away sheath was advanced over the wire. The wire and inner obturator were removed and the catheter advanced into the superior vena cava. Catheter position was confirmed and a static image stored. All lumens flushed and aspirated well. Each lumen was instilled with a heparin solution and a sterile dressing applied. Medications: Lidocaine 1% 10 mL subcut; midazolam 3 mg IV; fentanyl 175 mcg IV Contrast: None Fluoroscopy time: 20 seconds Estimated blood loss: 10 mL Complications: ??No immediate Impression: 1.) Patent right internal jugular vessel by sonographic evaluation. 2.) Insertion of right internal jugular, Medcomp Hemo-Flow 14.5 F 24 cm step-tip, cuffed hemodialysis catheter. The catheter may be used immediately. Associate provider: Estella Sánchez PA-C I supervised the physician trainee perform the entire procedure without the presence of an attending radiologist. I was present during the inter-service time as documented by the interventional radiology nurse. sand and gravel plant operator: ??Anitha Greene MD Attending of record: Fortino Paulino MD I, Dr. Paulino, was not present for the procedure. 09/14/2024 Tom Welch MD IMG IR ORDERABLES * (ABNORMAL) HDL/Cholesterol Profile (04/06/2014 5:20 AM EDT) [facility] Signature Cholesterol, Total 174 <=199 mg/dL [facility] Comment: Recommendations of the NCEP Adult Treatment Panel for the following risk cutoff thresholds for the [place] population: Desirable: <200 mg/dL Borderline High: 200-239 mg/dL High: > or = 240 mg/dL HDL Cholesterol 25(L) >=40 mg/dL [facility] Comment: Reference range: ??Low HDL: ?? < 40 mg/dL ??Normal: ?40-60 mg/dL ??Desirable: > 60 mg/dL PREM 2001; 285(19):2895-6423 Cholesterol/HDL Ratio 7.[address] [facility] Comment: A Cholesterol to HDL ratio below 4:1 is desirable. ??Studies suggest that increased CAD risk occurs at ratios above 5 for females and above 6 for men. ? [place] Heart Association ??(http://www.americanheart.org) ? R[place]anna Int Med, 1994; 121:641 ? AM J Med, 1998; 105(1A):48S Blood specimen (specimen) 04/06/2014 5:20 AM EDT 04/06/2014 5:54 AM EDT Narrative Resulting Agency Comment Spec In Lab Kraig Chaudhry MD CHEMISTRY ORDERABL ES [facility] * (ABNORMAL) Hemoglobin A1c (04/06/2014 5:20 AM EDT) [facility] Hemoglobin A1c 6.2(H) <=5.6 % [facility] Comment: As of 2013 the methodology for Hemoglobin A1c testing has changed. This change is accompanied by a new interpretive statement and flags. Please review the new interpretive statement and contact Dr. Elise or Dr. Cisneros with questions. Reference Range: 4.3 ? 5.6% 5.7 ? 6.4% - Increased Risk of Developing Diabetes Mellitus 6.5% - Consistent with diagnosis of Diabetes Mellitus In the absence of hyperglycemia (i.e. plasma glucose > 200 mg/dL) or classic symptoms of hyperglycemia a repeat measurement of HbA1c should be performed on a separate sample to confirm the diagnosis. Diagnosis and Classification of Diabetes Mellitus, Diabetes Care 2013; 36: Suppl. 1, Y17-37 Estimated Average Glucose 131 mg/dL [facility] Comment: eAG equivalents for HbA1c percentages: HbA1c(%) ?eAG(mg/dL) 6.0 ?126 6.5 ?140 7.0 ?154 7.5 ?169 8.0 ?183 8.5 ?197 9.0 ?212 9.5 ?226 10.0 ? 240 Limitations: The eAG calculation has not been validated on women, individuals below 18 years old and above 70 years old, and individuals with hemoglobinopathies. Additional resources are available on the ADA website: ??http://professional.diabetes.org/glucosecalculator.aspx Aries BARROSO, Lior J, Adilson R, et al. ??Translating the A1C assay into estimated average glucose values. ??Diabetes Care 2008:31(8):8537-3823. Blood specimen (specimen) 04/06/2014 5:20 AM EDT 04/06/2014 5:54 AM EDT Narrative Resulting Agency Comment Spec In Lab Kraig Chaudhry MD CHEMISTRY ORDERABL ES [facility] from Last 3 Months or Most Recently Relevant to Health Maintenance Advance Directives * Attempt Cardiopulmonary Resuscitation - Inpatient (Latest Code Status on File) Date Activated Date Inactivated Comments 11/05/2024 1:01 PM 11/06/2024 4:35 AM Question Answer Comments Code Status decision made by: Patient Content of discussion: Full * Attempt Cardiopulmonary Resuscitation - Inpatient Date Activated Date Inactivated Comments 09/14/2024 9:15 AM 09/15/2024 4:34 AM Question Answer Comments Code Status decision made by: Patient Content of discussion: Full code * Full Code Date Activated Date Inactivated Comments 04/05/2014 4:36 PM 04/08/2014 2:43 PM Question Answer Comments Order Status: Initial Order Does patient have decision m aking capacity? Yes, Order is based on Patients wishes. Care Teams Shader And Toner Relationship Specialty Start Date End Date Laura Stephenson, SERVICE CENTER COORDINATOR [address] [address] PCP - General Family Medicine 09/14/24
--- OUTSIDE RECORDS SUMMARY | 2024-11-24 13:55 | XMS_ITS | Encounter Summary ---
Author Organization [facility] Address [address] [place] [address] Care Team Providers Care Kiln Operator Helper Name Role Phone Unknown, Provider Primary Care Provider Virgilio alves Encounter Details Date Type Department Care Team (Late st Contact Info) Description 08/26/2018 Results Only [facility] [phone] Jr Alvarez MD [address] [place] [phone] Social History Tobacco Use Types Packs/Day Years [...] Date/Time Associated Diagnosis Comments SURGICAL PATHOLOGY Routine 08/26/2018 16 :53 EDT documented in this encounter Results * SURGICAL PATHOLOGY (08/26/2018 16:53 EDT) Pathology Report: SURGICAL PATHOLOGY REPORT Reports generated via electronic interface contain original data; however they are lacking the format of the original report. Caution should be taken when reading/interpreting unformatted reports. Name: ? GALO CHRIS ? Accession #: ? [id number] ? : ? 1960 (Age: 58) ??M ? Collect Date: ? 08/26/2018 ? Location: ? [facility] ? Receive Date: ? 08/26/2018 ? Provider: JR ALVAREZ MD Copy to: OMID SAENZ MD ? Final Pathologic Diagnosis: SUMMARY OF CORES A (right base lat) (1) ?4+4 ? 80% ?1/1 ?PN B (right base med) (1) ?4+5 (<5% 5) ?95% ?1/1 ?PN C (right mid lat) (1) ?4+5 (10% 5) ?90% ?1/1 ?PN D (right mid med) (1) ?4+4 ? 90% ?1/1 ?PN E (right apex lat) (1) ?4+4 ? 90% ?1/1 ?PN F (right apex med) (1) ?4+4 ? 95% ?1/1 ?PN G (left base lat) (1) ?4+4 ? 80% ?1/1 H (left base med) (1) ?4+4 ? 90% ?1/1 ?PN I (left mid lat) (1) ?4+4 ? 40% ?1/1 J (lef mid med) (1) ?4+5 (10% 5) ?85% ?1/ ?PN ?PIN K (left apex lat) (1) ?4+3 (90% 4) ? 75% ?1/1 L (left apex med) (1) ?4+5 (10% 5) ?85% ?1/ ?PN (PN: ? perineural invasion) (PIN: ? high-grade prostatic intraepithelial neoplasia) Grade Group: ? Group 5 New Prostate Cancer Grading System*: This system was developed based on a study of greater than 20,000 prostate cancer cases treated with radical prostatectomy and greater than 5000 cases treated by radiation therapy. The system was developed to provide a smaller number of grades with the most significant prognostic differences, with Group 1 having the best prognosis and Group 5 the worst prognosis. The highest grade group is reported for each biopsy series on a patient. Grade Group 1 (Len score d6) Grade Group 2 (Len score 3+4=7) Grade Group 3 ([place] score 4+3=7) Grade Group 4 (Len score 8) Grade Group 5 ([place] scores 9-10) * ehsan Morton al: A Contemporary Prostate Cancer Grading System: A Validated Alternative to the Len Score. Eur Uro 2015 69(3):428-435 A. PROSTATE, RIGHT BASE LATERAL, BIOPSY (1): - Prostatic adenocarcinoma (1 tumor focus in 1 core). ? - Len score: ?4 + 4 = 8 ? - Prognostic Grade Group: ?4 ? - Percent involvement: ? 80% of entire prostatic tissue ? - Perineural invasion: ? Present ? - ??Histologic grade: ?- ??Primary [place] pattern: ? Grade 4 (fused) ?- ??Secondary [place] pattern: ? Grade 4 (poorly formed) ?- ??Minor (<5%) [place] pattern: ?Grade 3 ?- ??Total Len score: ?8 (the most and the worst rule for prostate biopsy) ? - ??Tumor contiguity: ? Contiguous ? - ??Linear millimeters of prostatic tissue: ? 14.5 mm ? - ??Linear millimeters of carcinoma: ?11.2 mm ? - ??Proportion of prostatic tissue involved by tumor: ?80% ? - ??Perineural invasion: ? Present B. PROSTATE, RIGHT BASE MEDIAL, BIOPSY (1): - Prostatic adenocarcinoma (1 tumor focus in 1 core). ? - [place] score: ?4 + 5 = 9 (less than 5% pattern 5) ? - Prognostic Grade Group: ?5 ? - Percent involvement: ? 95% of entire prostatic tissue ? - Perineural invasion: ? Present ? - ??Histologic grade: ?- ??Primary Len pattern: ? Grade 4 (fused) ?- ??Secondary [place] pattern: ? Grade 4 (poorly formed) ?- ??Minor (<5%) [place] pattern: ?Grade 5 ?- ??Total Len score: ?9 (the most and the worst rule for prostate biopsy) ? - ??Tumor contiguity: ? Contiguous ? - ??Linear millimeters of prostatic tissue: ? 14.0 mm ? - ??Linear millimeters of carcinoma: ?12.9 mm ? - ??Proportion of prostatic tissue involved by tumor: ?95% ? - ??Perineural invasion: ? Present C. PROSTATE, RIGHT MID LATERAL, BIOPSY (1): - Prostatic adenocarcinoma (1 tumor focus in 1 core). ? - [place] score: ?4 + 5 = 9 (10% pattern 5) ? - Prognostic Grade Group: ?5 ? - Percent involvement: ? 90% of entire prostatic tissue ? - Perineural invasion: ? Present ? - ??Histologic grade: ?- ??Primary Len pattern: ? Grade 4 (poorly formed, fused) ?- ??Secondary Len pattern: ? Grade 5 ?- ??Total [place] score: ?9 ? - ??Tumor contiguity: ? Contiguous ? - ??Linear millimeters of prostatic tissue: ? 15.5 mm ? - ??Linear millimeters of carcinoma: ?14.0 mm ? - ??Proportion of prostatic tissue involved by tumor: ?90% ? - ??Perineural invasion: ? Present D. PROSTATE, RIGHT MID MEDIAL, BIOPSY (1): - Prostatic adenocarcinoma (1 tumor focus in 1 core). ? - [place] score: ?4 + 4 = 8 ? - Prognostic Grade Group: ?4 ? - Percent involvement: ? 90% of entire prostatic tissue ? - Perineural invasion: ? Present ? - ??Histologic grade: ?- ??Primary Len pattern: ? Grade 4 (fused) ?- ??Secondary [place] pattern: ? Grade 4 (poorly formed) ?- ??Minor (<5%) Len pattern: ?Grade 3 ?- ??Total [place] score: ?8 ? - ??Tumor contiguity: ? Contiguous ? - ??Linear millimeters of prostatic tissue: ? 14.8 mm ? - ??Linear millimeters of carcinoma: ?13.2 mm ? - ??Proportion of prostatic tissue involved by tumor: ?90% ? - ??Perineural invasion: ? Present E. PROSTATE, RIGHT APEX LATERAL, BIOPSY (1): - Prostatic adenocarcinoma (1 tumor focus in 1 core). ? - [place] score: ?4 + 4 = 8 ? - Prognostic Grade Group: ?4 ? - Percent involvement: ? 90% of entire prostatic tissue ? - Perineural invasion: ? Present ? - ??Histologic grade: ?- ??Primary [place] pattern: ? Grade 4 (cribriform, fused) ?- ??Secondary [place] pattern: ? Grade 4 (poorly formed) ?- ??Total [place] score: ?8 ? - ??Tumor contiguity: ? Contiguous ? - ??Linear millimeters of prostatic tissue: ? 17.0 mm ? - ??Linear millimeters of carcinoma: ?14.7 mm ? - ??Proportion of prostatic tissue involved by tumor: ?90% ? - ??Perineural invasion: ? Present - Fibromuscular with colorectal mucosa with no specific histopathologic features. F. PROSTATE, RIGHT APEX MEDIAL, BIOPSY (1): - Prostatic adenocarcinoma (1 tumor focus in 1 core). ? - Len score: ?4 + 4 = 8 ? - Prognostic Grade Group: ?4 ? - Percent involvement: ? 95% of entire prostatic tissue ? - Perineural invasion: ? Present ? - ??Histologic grade: ?- ??Primary [place] pattern: ? Grade 4 (fused) ?- ??Secondary Len pattern: ? Grade 4 (poorly formed, cribriform) ?- ??Total [place] score: ?8 ? - ??Tumor contiguity: ? Contiguous ? - ??Linear millimeters of prostatic tissue: ? 18.1 mm ? - ??Linear millimeters of carcinoma: ?17.1 mm ? - ??Proportion of prostatic tissue involved by tumor: ?95% ? - ??Perineural invasion: ? Present G. PROSTATE, LEFT BASE LATERAL, BIOPSY (1): - Prostatic adenocarcinoma (1 tumor focus in 1 core). ? - Len score: ?4 + 4 = 8 ? - Prognostic Grade Group: ?4 ? - Percent involvement: ? 80% of entire prostatic tissue ? - ??Histologic grade: ?- ??Primary Len pattern: ? Grade 4 (fused) ?- ??Secondary [place] pattern: ? Grade 4 (poorly formed) ?- ??Total Len score: ?8 ? - ??Tumor contiguity: ? Contiguous ? - ??Linear millimeters of prostatic tissue: ? 9.0 mm ? - ??Linear millimeters of carcinoma: ?7.2 mm ? - ??Proportion of prostatic tissue involved by tumor: ?80% H. PROSTATE, LEFT BASE MEDIAL, BIOPSY (1): - Prostatic adenocarcinoma (1 tumor focus in 1 core). ? - [place] score: ?4 + 4 = 8 ? - Prognostic Grade Group: ?4 ? - Percent involvement: ? 90% of entire prostatic tissue ? - Perineural invasion: ? Present ? - ??Histologic grade: ?- ??Primary Len pattern: ? Grade 4 (poorly formed) ?- ??Secondary Len pattern: ? Grade 4 (fused, cribriform) ?- ??Total Len score: ?8 ? - ??Tumor contiguity: ? Contiguous ? - ??Linear millimeters of prostatic tissue: ? 12.5 mm ? - ??Linear millimeters of carcinoma: ?11.2 mm ? - ??Proportion of prostatic tissue involved by tumor: ?90% ? - ??Perineural invasion: ? Present I. PROSTATE, LEFT MID LATERAL, BIOPSY (1): - Prostatic adenocarcinoma (1 tumor focus in 1 core). ? - [place] score: ?4 + 4 = 8 ? - Prognostic Grade Group: ?4 ? - Percent involvement: ? 40% of entire prostatic tissue ? - ??Histologic grade: ?- ??Primary Len pattern: ? Grade 4 (fused) ?- ??Secondary [place] pattern: ? Grade 4 (poorly formed) ?- ??Total [place] score: ?8 ? - ??Tumor contiguity: ? Contiguous ? - ??Linear millimeters of prostatic tissue: ? 8.2 mm ? - ??Linear millimeters of carcinoma: ?3.0 mm ? - ??Proportion of prostatic tissue involved by tumor: ?40% J. PROSTATE, LEFT MID MEDIAL, BIOPSY (1): - Prostatic adenocarcinoma (1 tumor focus in 1 core). ? - [place] score: ?4 + 5 = 9 (10% pattern 5) ? - Prognostic Grade Group: ?5 ? - Percent involvement: ? 85% of entire prostatic tissue ? - Perineural invasion: ? Present - High-grade prostatic intraepithelial neoplasia (PIN). ? - ??Histologic grade: ?- ??Primary [place] pattern: ? Grade 4 (fused, poorly formed) ?- ??Secondary Len pattern: ? Grade 5 ?- ??Total [place] score: ?9 ? - ??Tumor contiguity: ? Contiguous ? - ??Linear millimeters of prostatic tissue: ? 10.7 mm ? - ??Linear millimeters of carcinoma: ?9.0 mm ? - ??Proportion of prostatic tissue involved by tumor: ?85% ? - ??Perineural invasion: ? Present ? - ??High-grade prostatic intraepithelial neoplasia (PIN): ?Present K. PROSTATE, LEFT APEX LATERAL, BIOPSY (1): - Prostatic adenocarcinoma (1 tumor focus in 1 core). ? - Len score: ?4 + 3 = 7 (90% pattern 4) ? - Prognostic Grade Group: ?3 ? - Percent involvement: ? 75% of entire prostatic tissue ? - ??Histologic grade: ?- ??Primary Len pattern: ? Grade 4 (fused, poorly formed) ?- ??Secondary Len pattern: ? Grade 3 ?- ??Total [place] score: ?7 ? - ??Tumor contiguity: ? Contiguous ? - ??Linear millimeters of prostatic tissue: ? 8.3 mm ? - ??Linear millimeters of carcinoma: ?6.2 mm ? - ??Proportion of prostatic tissue involved by tumor: ?75% L. PROSTATE, LEFT APEX MEDIAL, BIOPSY (1): - Prostatic adenocarcinoma (1 tumor focus in 1 core). ? - [place] score: ?4 + 5 = 9 (10% pattern 5) ? - Prognostic Grade Group: ?5 ? - Percent involvement: ? 85% of entire prostatic tissu ? - Perineural invasion: ? Present ? - ??Histologic grade: ?- ??Primary [place] pattern: ? Grade 4 (poorly formed, fused) ?- ??Secondary [place] pattern: ? Grade 5 ?- ??Total [place] score: ?9 ? - ??Tumor contiguity: ? Contiguous ? - ??Linear millimeters of prostatic tissue: ? 9.8 mm ? - ??Linear millimeters of carcinoma: ?8.2 mm ? - ??Proportion of prostatic tissue involved by tumor: ?85% ? - ??Perineural invasion: ? Present Comment: This case was presented and reviewed at the intradepartmental consultation conference for confirmation of malignancy and Len scores. Document reviewed and electronically signed by: Marimar Camarillo MD Report ??Date: 08/30/2018 16:00 By the signature above, the attending physician certifies that he/she has personally conducted a gross and/or microscopic examination of the described specimens and rendered or confirmed the above diagnosis. Specimen(s) Received: A. ??Rt base lateral B. ??Rt base medial C. ??Rt mid lateral D. ??Rt mid medial E. ??Rt apex lateral F. ??Rt apex medial G. ??Lt base lateral H. ??Lt base medial I. ??Lt mid lateral J. ??Lt mid medial K. ??Lt apex lateral L. ??Lt apex medial Clinical History: PSA over 300, firm prostate on JEANIE Gross Description: A. ?Received in formalin labelled with proper patient identification (initials P, S) and Rt base lateral is a single barnes-white tissue core (1.6 cm in length x 0.1 cm in diameter). Submitted intact in A1. B. ?Received in formalin labelled with proper patient identification (initials P, S) and Rt base medial is a single barnes-white tissue core (1.5 cm in length x 0.1 cm in diameter). Submitted intact in B1. C. ?Received in formalin labelled with proper patient identification (initials P, S) and Rt mid lateral is a single barnes-white tissue core (1.6 cm in length x 0.1 cm in diameter). Submitted intact in C1. D. ?Received in formalin labelled with proper patient identification (initials P, S) and Rt mid medial is a single barnes-white tissue core (1.7 cm in length x 0.1 cm in diameter). Submitted intact in D1. E. ?Received in formalin labelled with proper patient identification (initials P, S) and Rt apex lateral is a single barnes-white tissue core (2.0 cm in length x 0.1 cm in diameter). Submitted intact in E1. F. ?Received in formalin labelled with proper patient identification (initials P, S) and Rt apex medial is a single barnes-white tissue core (1.8 cm in length x 0.1 cm in diameter). Submitted intact in F1. G. ?Received in formalin labelled with proper patient identification (initials P, S) and Lt base lateral is a single barnes-white tissue core (1.2 cm in length x 0.1 cm in diameter). Submitted intact in G1. H. ?Received in formalin labelled with proper patient identification (initials P, S) and Lt base medial is a single barnes-white tissue core (1.4 cm in length x 0.1 cm in diameter). Submitted intact in H1. I. ?Received in formalin labelled with proper patient identification (initials P, S) and Lt mid lateral is a single barnes-white tissue core (1.0 cm in length x 0.1 cm in diameter). Submitted intact in I1. J. ?Received in formalin labelled with proper patient identification (initials P, S) and Lt mid medial is a single barnes-white tissue core (1.2 cm in length x 0.1 cm in diameter). Submitted intact in J1. K. ?Received in formalin labelled with proper patient identification (initials P, S) and Lt apex lateral is a single barnes-white tissue core (1.0 cm in length x 0.1 cm in diameter). Submitted intact in K1. L. ?Received in formalin labelled with proper patient identification (initials P, S) and Lt apex medial is a single barnes-white tissue core (1.0 cm in length x 0.1 cm in diameter). Submitted intact in L1. Jess Romo 08/27/2018 8:39 AM End of Report [facility] 08/26/2018 16:5 3 EDT 08/26/2018 16:53 EDT us Jr Alvarez MD PATHOLOGY ORDERABLES Ivory rodriguez Result Performing Organization Address City/State/[facility] Co de Phone Number [facility] [address] [place] [address] documented in this encounter Visit Diagnoses Not on filedocumented in this encounter Care Teams Kiln Operator Helper Relationship Specialty Start Date End Date Unknown, Provider, PCP - General 10/08/15 01/29/21 documented as of this encounter
--- OUTSIDE RECORDS SUMMARY | 2024-11-24 13:56 | XMS_ITS | Encounter Summary ---
Author Organization [facility] [place] [address] Care Team Providers Care Tree Climber Name Role Phone Sachin, Laura Aguilar APRN Primary Care Provider Encounter Details Date Type Department Care Team (Late st Contact Info) Description 09/21/2024 Notes Only Hematology/Oncology at [address] [phone] Ely Raymond, TRAINING AND DEVELOPMENT ASSISTANT OFFICE OF CARE MANAGEMENT Social History Tobacco Use Types Packs/Day Years [...] from your doctor or pharmacy? Never 09/08/2024 [facility] Utilities Answer Date Recorded In the past [...] the money to buy more. Never true 10/08/20 24 Within the past 12 months, t [...] any time in the past 12 m ont, were you homeless or living in a fdc (including now)? No 09/08/2024 Sex and Gender Information Value Date Recorded Sex Assigned at Male 10/17/2023 2:13 PM EST Gender Identity Male 10/17/2023 2:13 PM EST Sexual Orientation Lesbian or Gallo 10/17/2023 2: 13 PM EST documented as of this encounter Progress Notes * Ely Raymond MSW - 09/21/2024 3:04 PM EDT Request to reach out to Travis to give him information re applying for financial assistance for his medical bills. HAYDEE spoke to Travis on the phone and this afternoon he came in to see me. Travis indicated he has transferred his care from [facility] to [facility]. He has questions about financial assistance and/or setting up a payment plan. HAYDEE gave him the contact information to [employer] and the [employer] application. He indicated he can call [employer]. The other issue appears related to the cost for medications he will need. HAYDEE suggested he touch base with his provider at [facility] or the providers nurse re this. Patient Financial Assistance/Insurance documented in this encounter Plan of Treatment Not on file documented as of this encounter Visit Diagnoses Not on filedocumented in this encounter Care Teams Tree Climber Relationship Specialty Start Date End Date Laura Stephenson, MECHANICAL SYSTEMS DESIGNER [place] [address] PCP - General Family Medicine 09/14/24 documented as of this encounter
--- OUTSIDE RECORDS SUMMARY | 2024-11-24 13:56 | XMS_ITS | Encounter Summary ---
Author Organization [facility] [place] [address] Care Team Providers Care Curbstone Setter Name Role Phone Unknown Primary Care Provider Unavailabl e Encounter Details Date Type Department Care Team (Late st Contact Info) Description 07/19/2020 Ancillary Procedure Radiology Library at [facility] [place] [phone] Mima Null, [address] [place] [address] Social History Tobacco Use Types Packs/Day Years [...] Procedure Name Priority Date/Time Associated Diagnosis Comments FILM LIBRARY- STORAGE ONLY DXA IMAGES Routine 07/19/2020 12:00 AM EDT documented in this encounter Results * Film Library- Storage Only DXA Images (07/19/2020 12:00 AM EDT) Narrative [facility] - 09/02/2020 4:23 PM EDT This exam is auto-finalizing. It's purpose is for storage only. Mima Null DO G FILM LIBRARY O RDERABLES DH JAMIE [place], [place] documented in this encounter Visit Diagnoses Not on filedocumented in this encounter Care Teams Curbstone Setter Relationship Specialty Start Date End Date Unknown None PCP - General 07/02/19 08/11/20 documented as of this encounter
--- OUTSIDE RECORDS SUMMARY | 2024-11-24 13:56 | XMS_ITS | Encounter Summary ---
Author Organization [facility] Address [facility] [place] [address] Care Team Providers Care Shopper Insights Manager Name Role Phone SachinLaura APRN Primary Care Provider [phone] Reason for Referral * Diagnostic Test (Routine) - Closed Specialty Diagnoses / Procedures Referred By Contac t Referred To Contact Radiology Diagnoses Malignant neoplasm of prostate metastatic to bone Procedures IR Dialysis Access - Tunneled Line Tom Welch MD [facility] [address] [place] [address] [facility] [place] [address] Referral ID Status Reason Start Date Expiration Date V isits Requested Visits Authorized [id number] Closed Specialty Service Requested 09/08/2024 03/09/2026 1 1 Reason for Visit * Diagnostic Test (Routine) - Closed Specialty Diagnoses / Procedures Referred By Contac t Referred To Contact Radiology Diagnoses Malignant neoplasm of prostate metastatic to bone Procedures IR Dialysis Access - Tunneled Line Tom Welch MD [facility] [address] [place] [address] [facility] [place] [address] Referral ID Status Reason Start Date Expiration Date V isits Requested Visits Authorized [id number] Closed Specialty Service Requested 09/08/2024 03/09/2026 1 1 Encounter Details Date Type Department Care Team (Latest Contact Info) Description 09/14/2024 8:31 AM EDT - 09/14/2024 11:59 PM EDT Hospital Encounter Radiology at [facility] [place] [id number] Tom Welch MD [facility] [address] [place] [address] Malignant 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 Never 09/08/2024 [facility] Utilities Answer Date Recorded In the [...] any time in the past [facility], were you homeless or living in a fdc (including now)? No 09/08/2024 Sex and Gender Information Value Date Recorded Sex Assigned at Male 10/17/2023 2:13 PM EST Gender Identity Male 10/17/2023 2:13 PM EST Sexual Orientation Lesbian or Gallo 10/17/2023 2: 13 PM EST documented as of this encounter Last Filed Vital Signs Vital Sign Reading Time Taken Comments Blood Pressure 168/78 09/14/2024 11:30 AM EDT Pulse 67 09/14/2024 11:00 AM EDT Temperature 35.9 ??C (96.7 ??F) 09/14/2024 11:15 AM E DT Respiratory Rate 18 09/14/2024 11:30 AM EDT Oxygen Saturation 98% 09/14/2024 11:30 AM EDT Inhaled Oxygen Concentration - - Weight - - Height - - Body Mass Index - - documented in this encounter Discharge Instructions * Discharge Instructions* Rupal Hays RN - 09/14/2024 9:14 AM EDT DISCHARGE INSTRUCTIONS FOR TUNNELED CENTRAL VENOUS CATHETER CARE Bandage: There is a sterile dressing over the catheter site consisting of a small gauze with a clear dressing ( Tegaderm) over it. This dressing will be changed or removed by the hospital staff, and you should not change it at home. If the clear dressing becomes loose, you should place tape over the edges to secure it in place. Never touch the open end of the CVC when the cap has been removed. Bathing: You may shower 72 hours after the catheter has been inserted. When you shower or bathe, you must cover the site with a waterproof material, such as plastic wrap, taped over the dressing and injection caps. Pain: Apply ice bag to site (s) at 30 minute intervals (30 minutes on and 30 minutes off) for 24 hours. May use as needed for pain and/or bruising after 24 hours. When to call your healthcare provider: If you develop pain, redness, drainage of swelling at the catheter or neck puncture site. If you develop a fever of 101 degrees or greater. If you develop shaking chills. If the catheter breaks, or you notice leaking from one of the ports or the catheter itself. If you notice bleeding from the catheter or the neck puncture sites, apply firm pressure over both sites simultaneously for 10-15 minutes. If you are still bleeding after 10-15 minutes, have someone drive you to the nearest Emergency Department or call 911. When to call the Interventional Radiology Department: Please call with any questions or concerns. If it is during regular working hours, please call [phone]. If it is after 5 pm or a weekend or holiday, call [phone] and ask for the Home Care Rn career transition specialist for Interventional Radiology. You have received medication during your procedure to help lessen anxiety and keep you comfortable.We recommend that you do not drive, operate equipment, sign any important documents, or smoke unattended for 24 hours following your procedure. Be careful on stairs, as you may be unsteady on your feet. You may eat a regular diet as tolerated IV site -- slight redness, or tenderness is normal, you can use a warm compress. If tenderness and redness increases or foul drainage occurs, please contact your M. D. Updated 09/17/19 documented in this encounter Medications at Time [...] as of this encounter Progress Notes * Rupal Hays RN - 09/14/2024 10:53 AM EDT ANGIO NURSING DATABASE Name: Hernandez Chris Date of : 1960 AGE: 64 y.o. Address: [address] [place] [address] Phone: There are no phone numbers on file. Mobile: Telephone Information: Referring Provider: Tom Welch REASON FOR VISIT: Order Questions Answers Where will study be performed? [facility] Radiology [120] To be scheduled Ordering department to coordinate scheduling Is the patient on anticoagulant / antiplatelet therapy ? No Reason for exam and clinical history: Dual Lumen Dialysis Cath for blood collection Sipuleucel-T/Provenge Exam/Procedure requested: Dual Lumen Dialysis Cath - ING 663 ( IR DIALYSIS ACCESS) Planned procedure: Two-lumen large bore catheter placement Labs to be performed day of procedure: No labs Sedation: Moderate (Conscious sedation) Prophylactic antibiotic : None Contrast: No contrast Additional medications for procedure: Lidocaine Position: Supine Consent: Pending Medications to discontinue (and days held): None Case Urgency:: G1-Elective Outpatient intervention within 4-7 days Allergies Allergen Reactions Latex Penicillins Pertinent PMH: Patient Active Problem List Diagnosis Code Pruritus L29.9 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 Pt tolerated well. 0954 to procedure room 6 via stretcher. Onto table supine. All monitors, O2, safety strap in place.Meds per protocol. Laboratory Results: Lab Results Component Value Date INR 1.1 04/05/2014 Lab Results Component Value Date CREATININE 1.13 04/05/2014 Lab Results Component Value Date K 3.7 04/05/2014 Lab Results Component Value Date PLATELET 199 04/05/2014 documented in this encounter H&P Notes * Anitha Greene MD - 09/14/2024 9:11 AM EDT INTERVENTIONAL RADIOLOGY FOCUSED H&P: Procedure: Tunneled CVC for immunotherapy Update to H&P: The patient's history and physical exam have been reviewed and completed. There has been NO interval change from that of the pre-procedural note done within the last 30 days. There is NO change in the procedural plan. Physical Exam: Cardiovascular: Regular rate Pulmonary: Breathing comfortably on RA Abdomen: Non distended Meds: Current medications reviewed. No medications held. Labs: No new relevant labs. The planned procedure (and sedation plan if appropriate) , its benefits and risks, and alternativeswere discussed with the patient. The patient consented to the procedure. PRE-SEDATION ASSESSMENT: Sedation Plan: moderate (conscious sedation) ASA: 3: Patient with severe systemic disease Mallampati: II: tonsillar pillars are blocked by the tongue History of anesthetic complications: No Current medications reviewed: Yes Allergies reviewed: Yes Source Note - Emil Larson PA - 09/09/2024 7:39 AM EDT Interventional Radiology Focused Pre-procedure H&P: PCP: Laura Stephenson APRN Procedure indication: Metastatic prostate cancer, correction durable venous access for frequent infusions IR workflow: Procedure request received through the Interventional Radiology eDH order queue. History of present illness: Per chart review, Hernandez Chris is a 64 y.o. male who presents to Interventional Radiology to undergo provenge immunotherapy in the setting of symptomatic prostate cancer. Large bore, two-lumen catheter needed. Medical history notable for HTN. Remainder of patient's medical and surgical history, allergies, medications, and social/family history obtained below as previously outlined in patient's medical record. IR history: none Imaging: none Assessment: 64 y.o. male with prostate cancer presenting to Interventional Radiology for venous access placement. Plan Planned procedure: Two-lumen large bore catheter placement Labs to be performed day of procedure: No labs Sedation: Moderate (Conscious sedation) Prophylactic antibiotic : None Contrast: No contrast Additional medications for procedure: Lidocaine Position: Supine Consent: Pending Medications to discontinue (and days held): None Cytopathology presence needed: No Case Urgency:: G1-Elective Outpatient intervention within 4-7 days Labs: Lab Results Component Value Date HGB 17.9 (H) 04/05/2014 HCT 48.5 04/05/2014 WBC 8.4 04/05/2014 PLATELET 199 04/05/2014 INR 1.1 04/05/2014 BUN 13 04/05/2014 CREATININE 1.13 04/05/2014 ALBUMIN 4.9 04/05/2014 BILIDIR 0.2 04/05/2014 BILITOT 1.2 04/05/2014 AST 16 04/05/2014 ALT 19 04/05/2014 ALKPHOS 136 (H) 04/05/2014 Allergies: Latex and Penicillins Medications: Current Outpatient Medications on File Prior to Visit Medication Sig Dispense Refill enzalutamide (Xtandi) 40 mg tablet Take 160 mg by mouth daily. Take without regard to food. Call clinic before/prior to starting medication/script. sertraline (Zoloft) 25 mg tablet TAKE ONE TABLET BY MOUTH EVERY DAY FOR DEPRESSION AND ANXIETY - COMBINE WITH 50MG TABLETS FOR A TOTAL OF 75MG DAILY sertraline (Zoloft) 50 mg tablet Take 50 mg by mouth daily. tamsulosin (Flomax) 0.4 mg Capsule Take 0.4 mg by mouth as needed. clopidogrel (PLAVIX) 75 mg tablet Take 1 tablet by mouth daily. 30 tablet 0 lisinopril (PRINIVIL;ZESTRIL) 40 mg tablet Take 1 tablet by mouth daily. Would hold off on this for2 weeks after discharge and start partial dose at that time. 30 tablet amLODIPine (NORVASC) 10 mg tablet Take 1 tablet by mouth daily. Would slowly add this back on aftera month from discharge. 30 tablet No current facility-administered medications on file prior to visit. 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 Social history and habits: Social History Tobacco Use Smoking status: Never Smokeless tobacco: Never Vaping Use Vaping status: Never Used Significant family history: No family history on file. Pertinent ROS: as per HPI Physical exam: Pending (to be performed in interventional radiology the day of procedure) ASA: Pending (to be assessed in interventional radiology the day of procedure) Mallampati class: Pending (to be assessed in interventional radiology the day of procedure) 09/09/2024 SLIM Best documented in this encounter Plan of Treatment Not on file documented as of this encounter Procedures Procedure Name Priority Date/Time Associated Diagnosis Comments IR DIALYSIS ACCESS - TUNNELED LINE Routine 09/14/2024 11:07 AM EDT Malignant neoplasm of prostate metastatic to bone documented in this encounter Results * IR Dialysis Access - Tunneled Line (09/14/2024 11:07 AM EDT) Anatomical Region Laterality Modality Abdomen X-Ray Angiograph y Narrative 09/15/2024 2:29 PM EDT Interventional Radiology Procedure Note Procedure: Tunneled hemodialysis catheter implant ?? Indication: Prostate cancer, durable correction central venous access for blood collection for [...] as documented by the interventional radiology nurse. agricultural equipment operator: ??Anitha Greene MD Attending of record: Fortino Paulino MD I, Dr. Paulino, was not present for the procedure. 09/14/2024 Tom Welch MD [facility] IR ORDERABLES documented in this encounter Visit Diagnoses Diagnosis Malignant neoplasm of prostate metastatic to bone Malignant neoplasm of prostate documented in this encounter Administered Medications Inactive Administered Medications - up to 3 most recent administrations Medication Order MAR Action Action Date Dose Rate Site fentaNYL (pf) (50 mcg/mL) multi-dose injection 25-50 mcg 25-50 mcg, Intravenous, EVERY 3 MIN PRN, Starting on Sat09/14/24 at 0906, Until Sat09/14/24 at 1146, Pain, per unit protocol, For use in Interventional Radiology (IR) only for procedural sedation with direct provider supervision and verbal order. - Start dose: 50 mcg (reduce dose to 25 mcg if history of sedation sensitivity). - Titration dose: 25-50 mcg IV, (based on patient response) every 3 minutes PRN to maintain procedural pain less than 2 per Pain Scale. Maximum dose: 50 mcg/dose, 250 mcg/hour, Angio/IR (Intra-Procedure), Routine Given 09/14/2024 10:47 AM EDT 25 mcg Given 09/14/2024 10:36 AM EDT 25 mcg Given 09/14/2024 10:26 AM EDT 25 mcg lidocaine (Xylocaine) 1% (10 mg/mL) injection 10 mg 10 mg, Subcutaneous, ONCE, 1 dose, On Sat09/14/24 at 0930, For use in Interventional Radiology (IR) only for procedure with direct provider supervision and verbal order., Angio/IR (Intra-Procedure), Routine Given 09/14/2024 10:30 AM EDT 10 mg midazolam (pf) (Versed) (1 mg/mL) multi-dose injection 0.5-1 mg 0.5-1 mg, Intravenous, EVERY 3 MIN PRN, Starting on Sat09/14/24 at 0906, Until Sat09/14/24 at 1146, Sedation, For use in Interventional Radiology (IR) only for procedural sedation with direct provider supervision and verbal order. - Start dose: 1 mg (Reduce dose to 0.5 mg if history of sedation sensitivity). - Titration dose: 0.5 mg - 1 mg (based on patient response) every 3 minutes PRN to obtain RASS score of -3. Maximum dose: 1 mg/dose, 5 mg/hour., Angio/IR (Intra-Procedure), Routine Given 09/14/2024 10:52 AM EDT 0.5 mg Given 09/14/2024 10:40 AM EDT 0.5 mg Given 09/14/2024 10:31 AM EDT 0.5 mg documented in this encounter Care Teams Shopper Insights Manager Relationship Specialty Start Date End Date Laura Stephenson, [place] [address] PCP - General Family Medicine 09/14/24 documented as of this encounter
--- OUTSIDE RECORDS SUMMARY | 2024-11-24 13:56 | XMS_ITS | Encounter Summary ---
Author Organization [facility] [place] [address] Care Team Providers Care Fuel Dock Attendant Name Role Phone Laura Stephenson APRN Primary Care Provider [phone] Encounter Details Date Type Department Care Team (Latest Contact Info) Description 09/17/2024 Travel Social History Tobacco Use Types Packs/Day [...] from your doctor or pharmacy? Never 09/08/2024 [facility] Utilities Answer Date Recorded In the [...] any time in the past 12 m [facility], were you homeless or living [...] on filedocumented in this encounter Care Teams Fuel Dock Attendant Relationship Specialty Start Date End Date Laura Stephenson, JALEN Y[place] [address] PCP - General Family Medicine 09/14/24 documented as of this encounter
--- OUTSIDE RECORDS SUMMARY | 2024-11-24 13:56 | XMS_ITS | Encounter Summary ---
[place] [address] Care Team Providers Care Monument Erector Name Role Phone Laura Stephenson APRN Primary Care Provider [phone] Reason for Visit * Reason Comments Procedure PROVENGE INFUSION SC OGRESS NOTEMrRajendra Chris presented to the Blood Donor Program today for Provenge infusion number 2 for prostate cancer with mets to boneProduct Disposition Form received from [employer]: YesProduct Disposition Form indicates Provenge is approved for infusion: YesProvenge Lot Number: Product Expiration Date and Time: 10/22/24, 1154Patient government issued picture ID EXACTLY MATCHES name and date of on product label: YesVerification on receipt by: Radha * Treatment/Therapy Plan Authorization (Routine) - Authorized Specialty Diagnoses / Procedures Referred By Contac t Referred To Contact Diagnoses Hormone resistant 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 Tom Welch MD [facility] [address] [place] [address] [facility] [place] [address] Referral ID Status Reason Start Date Expiration Date V isits Requested Visits Authorized [id number] Authorized 09/08/2024 09/08/2025 99 103 Encounter Details Date Type Department Care Team (Latest Contact Info) Description 10/22/2024 8:10 AM EST - 10/22/2024 11:59 PM [facility] Hospital Encounter [facility] [place] [address] Hormone resistant prostate cancer; Malignant neoplasm of [...] your doctor or pharmacy? Never 09/08/2024 [facility] Utilities Answer Date Recorded In [...] time in the past 12 m [facility], were you homeless or living in a fdc (including now)? No 09/08/2024 Sex and Gender Information Value Date Recorded Sex Assigned at Male 10/17/2023 2:13 PM EST Gender Identity Male 10/17/2023 2:13 PM EST Sexual Orientation Lesbian or Gallo 10/17/2023 2: 13 PM EST documented as of this encounter Last Filed Vital Signs Vital Sign Reading Time Taken Comments Blood Pressure 147/64 10/22/2024 11:08 AM EST Pulse 56 10/22/2024 11:08 AM EST Temperature 36.4 ??C (97.6 ??F) 10/22/2024 11:[address] Respiratory Rate 18 10/22/2024 11:08 AM EST Oxygen Saturation - - Inhaled Oxygen Concentration - - Weight - [...] as of this encounter Progress Notes * Nataly Coe RN - 10/22/2024 4:26 PM ESTSummary: Provenge Infusion #2 PROVENGE INFUSION PROGRESS NOTE Mr. Chris presented to the Blood Donor Program today for Provenge infusion number 2 for prostate cancer with mets to bone. Product Disposition Form received from [employer]: Yes Product Disposition Form indicates Provenge is approved for infusion: Yes Provenge Lot Number: Product Expiration Date and Time: 10/22/24, 3720 Patient government issued picture ID EXACTLY MATCHES name and date of on product label: Yes Verification on receipt by: Yes Allergies: Latex and Penicillins Sipleucel-T (PROVENGE) 50 million cells Patient ID, drug and dose verified at bedside prior to starting the infusion by Nataly Coe RN and Deedee Crawford RN. Infusion start time: 914 Infusion end time: 1038 Post infusion: Reactions: (description, time, intervention, and effectiveness) none. [facility] [[facility] N/A Mr. Chris was observed for [...] mg, Oral, ONCE, 1 dose, On Beata 10/22/24 at 0845, To be given 30 minutes prior to infusion. Maximum dose of acetaminophen is 4,000 mg from all sources in 24 hours. When ordered for pain, acetaminophen should be given even when other ordered pain medications are indicated., Routine Given 10/22/2024 8:31 AM EST 650 mg diphenhydrAMINE (Benadryl) capsule 25 mg 25 mg, Oral, ONCE, 1 dose, On Beata 10/22/24 at 0845, To be given 30 minutes prior to infusion., Routine Given 10/22/2024 8:31 AM EST 25 mg famotidine (Pepcid) tablet 20 mg 20 mg, Oral, ONCE, 1 dose, On Beata 10/22/24 at 0845, To be given 30 minutes prior to infusion., Routine Given 10/22/2024 8:31 AM EST 20 mg heparin (porcine) (1,000 units/mL) injection 4,000 Units 4,000 Units, Intercatheter, ONCE, 1 dose, On Beata 10/22/24 at 0845, After flushing dual lumen catheter with Sodium Chloride 0.9%, instill heparin 1,000 units/mL to length of catheter, dredge operator, Routine Given 10/22/2024 11:00 AM EST 3,800 Units sipuleucel-T (Provenge) 50 million cell in lactated ringers 250 mL infusion 50 Million Cells, Intravenous, ONCE, 1 dose, On Beata 10/22/24 at 0915, Administer over 60 Minutes, Give pre-medications 30 minutes prior to infusion. Administer contents of bag over 60 minutes. Observe patients for 30 minutes after the infusion. Observe universal precautions when handling sipuleucel-T and leukapheresis material. Rate/Dose Change 10/22/2024 9:30 AM EST 250 mL/hr New Bag 10/22/2024 9:15 AM EST 50 Million Cells 72 mL/h r sodium chloride 0.9 % (flush) (BD PosiFlush Normal Saline 0.9) flush 20 mL 20 mL, Intercatheter, ONCE, 1 dose, On Beata 10/22/24 at 0845, Routine Given 10/22/2024 11:00 AM EST 20 mLs Given 10/22/2024 10:59 AM EST 20 mLs Given 10/22/2024 8:31 AM EST 20 mLs sodium chloride 0.9% infusion 100 mL, Intravenous, ONCE, 1 dose, On Beata 10/22/24 at 1015, When the product bag is empty, close the roller clamp, un-spike the product bag and spike the 100 mL bag of 0.9% normal saline and open the roller clamp. Infuse at least 50 mL to ensure all Provenge product is flushed through the line. New Bag 10/22/2024 10:23 AM EST 100 mLs 250 mL/hr documented in this encounter Care Teams Monument Erector Relationship Specialty Start Date End Date Laura Stephenson, JALEN [facility] [place] [address] PCP - General Family Medicine 09/14/24 documented as of this encounter
--- OUTSIDE RECORDS SUMMARY | 2024-11-24 13:56 | XMS_ITS | Encounter Summary ---
Author Organization [facility] [place] [address] Care Team Providers Care Fire Manager Name Role Phone SachinLaura izaguirre Jeff RAO Primary Care Provider [phone] Reason for Visit * Reason Onset Date Comments Referral 04/25/2023 Encounter Details Date Type Department Care Team (Late st Contact Info) Description 04/25/2023 Telephone [place] [address] You Cisneros MD [facility] [place] [address] Referral Social History Tobacco Use Types Packs/Day Years Used Date Smoking Tobacco: Never Smokeless Tobacco: Never Sex and Gender Information Value Date Recorded Sex Assigned at Male 10/17/2023 2:13 PM EST Gender Identity Male 10/17/2023 2:13 PM EST Sexual Orientation Lesbian or Gallo 10/17/2023 2: 13 PM EST documented as of this encounter Miscellaneous Notes * Telephone Encounter - Danielle Rodriguez RN - 04/25/2023 3:24 PM EDT referral faxed * Telephone Encounter - Mona Myers RN - 04/25/2023 1:23 PM EDT Copied from [facility] #[id number]. Topic: Specialty Dept CRMs - Generic Call >> April 25, 2023 1:18 PM Melodie Matias wrote: Specialist: Relationship (if other than patient-full name): [facility] Reason for Call: Liya called requesting patients referral, they have not received it yet. Please advise. documented in this encounter Plan of Treatment Not on file documented as of this encounter Visit Diagnoses Not on filedocumented in this encounter Care Teams Fire Manager Relationship Specialty Start Date End Date Laura Stephenson, PLASTIC BLOCK BOILER REL[place] [address] PCP - General Family Medicine 02/04/23 09/13/24 documented as of this encounter
--- OUTSIDE RECORDS SUMMARY | 2024-11-24 13:56 | XMS_ITS | Encounter Summary ---
Author Organization [facility] Address [facility] [place] [address] [address] Mechanical Engineer Name Role Phone Laura Stephenson APRN Primary Care Provider [phone] Reason for Referral * Consultation (Urgent) - Closed Specialty Diagnoses / Procedures Referred By Contjose a t Referred To Contact Hematology and Oncology Diagnoses Prostate cancer Salma Rincon MD [address] [place] [address] [facility] Hem Onc Office [address] [place] [phone] Referral ID Status Reason Start Date Expiration Date V isits Requested Visits Authorized [id number] Closed Consult, Test & Treat 08/06/2024 08/06/2025 1 1 Encounter Details Date Type Department Care Team (Late st Contact Info) Description 08/06/2024 Transcribe Orders eDH Incoming Referrals [phone] Salma Rincon MD [address] [place] [address] Prostate cancer Social History Tobacco Use Types Packs/Day Years Used Date Smoking Tobacco: Never Smokeless Tobacco: Never Sex and Gender Information Value Date Recorded Sex Assigned at Male 10/17/2023 2:13 PM EST Gender Identity Male 10/17/2023 2:13 PM EST Sexual Orientation Lesbian or Gallo 10/17/2023 2: 13 PM EST documented as of this encounter Plan of Treatment Scheduled Referrals Name Type Priority Associated Diagnoses Order Schedule Referral to Hematology and Oncology Outpatient Referral Urgent Prostate cancer Ordered: 08/06/2024 documented as of this encounter Visit Diagnoses Diagnosis Prostate cancer Malignant neoplasm of prostate documented in this encounter Care Teams Rd Mechanical Engineer Relationship Specialty Start Date End Date Laura Stephenson, CLIENT SUPPORT ANALYST [address] [place] [address] PCP - General Family Medicine 02/04/23 09/13/24 documented as of this encounter
--- OUTSIDE RECORDS SUMMARY | 2024-11-24 13:56 | XMS_ITS | Encounter Summary ---
Author Organization [facility] Address [facility] [place] [address] Care Team Providers Care Director Chemistry Name Role Phone Sachin, Laura Aguilar APRN Primary Care Provider [phone] Encounter Details Date Type Department Care Team (Late st Contact Info) Description 09/09/2024 [place] [phone] Emil Larson PA [facility] [place] [address] Social History Tobacco Use Types Packs/Day Years Used Date Smoking Tobacco: Never Smokeless Tobacco: Never B1300 Health Literacy Answer Date Recor ded How often do you need to hav e someone help you when you read instructions, pamphlets, or other written material from your doctor or pharmacy? Never 09/08/2024 [facility] Utilities Answer Date Recorded In the past 12 months has e [employer], gas, oil, or water [employer] threatened to shut off services in your [...] time in the past 12 m [facility], were you homeless or living in a group home (including now)? No 09/08/2024 Sex and Gender Information Value Date Recorded Sex Assigned at Male 10/17/2023 2:13 PM EST Gender Identity Male 10/17/2023 2:13 PM EST Sexual Orientation Lesbian or Gallo 10/17/2023 2: 13 PM EST documented as of this encounter H&P Notes * Emil Larson PA - 09/09/2024 7:39 AM EDT Interventional Radiology Focused Pre-procedure H&P: PCP: Laura Stephenson APRN Procedure indication: Metastatic prostate cancer, mcfp durable venous access for frequent infusions IR [...] on filedocumented in this encounter Care Teams Director Chemistry Relationship Specialty Start Date End Date Laura Stephenson, [place] [address] PCP - General Family Medicine 02/04/23 09/13/24 documented as of this encounter
--- OUTSIDE RECORDS SUMMARY | 2024-11-24 13:56 | XMS_ITS | Encounter Summary ---
Author Organization [facility] Address [facility] [place] [address] Care Team Providers Care Underwriting Internship Name Role Phone SachinLaura APRN Primary Care Provider [phone] Encounter Details Date Type Department Care Team (Late st Contact Info) Description 09/22/2024 Notes Only Hematology [place] [phone] Eli Kemp, WEB PRESS OPERATOR HELPER OFFSET Social History Tobacco Use Types Packs/Day Years [...] doctor or pharmacy? Never 09/08/2024 [facility] Utilities Answer Date Recorded In the past 12 months has [employer], [employer], oil, or water [employer] threatened to shut off services in your [...] as of this encounter Progress Notes * Eli Kemp MSW - 09/22/2024 12:22 PM EDTSummary: [facility]/WEB PRESS OPERATOR HELPER OFFSET [facility]/Office of Care Management Continuing Care Manger-Social Work Note: ID: Hernandez is a 64 year old male patient diagnosed with prostate cancer metastatic to bone. Self Referred: Is transitioning to cancer care at [facility]. Hernandez has been in treatment since 2018 at both [facility] and [facility]. He report he has elected to come to to get his care locally and reduce the miles he has to travel. Travis is single, here with his brother, he has other siblings. His parents are .. Travis collects social security disability and has AARP. He lives in [place], [place]. He has some anxiety symptoms, history of a stroke and reports some difficulty with his memory and/or learning deficits. We talked about his getting treatment there. Explained that his provider goes to [facility] and the treatment provided there is the same with the exception of size. Noted that he will come to for some appointments, however he could get most of his treatment at [facility]. We talked about possible need for financial assistance for his treatment. He reports he might need help or a payment plan. Information provided. I suggested once he has had a few appointments, he will likely have a better understanding of what help he might need. Assessment: Travis is a pleasant 64 year old male from [place], [place]. He presents with supportive family and has some stability in housing, access to food, clothing and transportation. He is however, on a limited income so naturally is concerned about the cost of continued treatment.I note that he does not have an advance directive or signed paperwork for a designated personal employer relations representative. This and possibly further exploration of his memory concerns and what learning tools might be helpful to him. Brief assessment Care Coordination Financial resources HAYDEE Robison, [facility] Pager: [phone] documented in this encounter Plan of Treatment Not on file documented as of this encounter Visit Diagnoses Not on filedocumented in this encounter Care Teams Underwriting Internship Relationship Specialty Start Date End Date Laura Stephenson, DRAFTING SUPERVISOR [place] [address] PCP - General Family Medicine 09/14/24 documented as of this encounter
--- OUTSIDE RECORDS SUMMARY | 2024-11-24 13:56 | XMS_ITS | Encounter Summary ---
Author Organization [facility] [place] [address] Care Team Providers Care Store Coordinator Name Role Phone Mima Null DO Primary Care Provider [phone] Encounter Details Date Type Department Care Team (Late st Contact Info) Description 02/20/2021 Telephone Hematology/Oncology at [address] [phone] Suzanne Vickers Social History Tobacco Use Types Packs/Day Years Used Date Smoking Tobacco: Never Smokeless Tobacco: Never Sex and Gender Information Value Date Recorded Sex Assigned at Male 10/17/2023 2:13 PM EST Gender Identity Male 10/17/2023 2:13 PM EST Sexual Orientation Lesbian or Gallo 10/17/2023 2: 13 PM EST documented as of this encounter Miscellaneous Notes * Telephone Encounter - Suzanne Vickers - 02/20/2021 12:09 PM EDT I received a call from Hernandez requesting to cancel his 3 month follow up visit with Dr. Welch. Hernandez states he is currently receiving his cancer care at [facility] and would prefer to continue his care there. documented in this encounter Plan of Treatment Not on file documented as of this encounter Visit Diagnoses Not on filedocumented in this encounter Care Teams Store Coordinator Relationship Specialty Start Date End Date Mima Null DO [address] [place] [address] PCP - General Family Medicine 08/12/20 02/03/23 documented as of this encounter
--- OUTSIDE RECORDS SUMMARY | 2024-11-24 13:56 | XMS_ITS | Encounter Summary ---
Author Organization [facility] [place] [address] Care Team Providers Care Display Coordinator Name Role Phone Laura Stephenson APRN Primary Care Provider [phone] Reason for Visit * Reason Onset Date Comments Questions 09/15/2024 Encounter Details Date Type Department Care Team ([facility] st Contact Info) Description 09/15/2024 Telephone [place] [phone] Poppy Rosenthal, [facility] ROOM Questions Social History Tobacco Use Types Packs/Day Years [...] from your doctor or pharmacy? Never 09/08/2024 [employer] Utilities Answer Date Recorded In the past 12 months has e [employer], gas, oil, or water [employer] threatened to shut off services in your [...] any time in the past 12 m [facility], were you homeless or living in a retirement (including now)? No 09/08/2024 Sex and Gender Information Value Date Recorded Sex Assigned at Male 10/17/2023 2:13 PM EST Gender Identity Male 10/17/2023 2:13 PM EST Sexual Orientation Lesbian or Gallo 10/17/2023 2: 13 PM EST documented as of this encounter Miscellaneous Notes * Telephone Encounter - Poppy Rosenthal RN - 09/15/2024 9:50 AM EDT Message received from legal secretary receptionist: [phone] - patient called - has questions about his scheduled - thinks there should be more scheduled then there are Spoke w/ pt and reviewed Provenge process, current issue w/ PA and copay assistance funding. All his questions answered to his apparent satisfaction. 30min call documented in this encounter Plan of Treatment Not on file documented as of this encounter Visit Diagnoses Not on filedocumented in this encounter Care Teams Display Coordinator Relationship Specialty Start Date End Date [place] [address] PCP - General Family Medicine 09/14/24 documented as of this encounter
--- OUTSIDE RECORDS SUMMARY | 2024-11-24 13:56 | XMS_ITS | Encounter Summary ---
Author Organization [facility] [place] [address] Care Team Providers Care Plant And Instrument Engineer Name Role Phone SachinLaura izaguirre Jeff RAO Primary Care Provider [phone] Reason for Visit * Reason Onset Date Comments Medical Care Coordination 08/10/2024 Encounter Details Date Type Department Care Team (Late st Contact Info) Description 08/10/2024 Telephone Hematology [place] [phone] Poppy Rosenthal RN INFUSION ROOM Medical Care Coordination Social History Tobacco Use Types Packs/Day Years Used Date Smoking Tobacco: Never Smokeless Tobacco: Never Sex and Gender Information Value Date Recorded Sex Assigned at Male 10/17/2023 2:13 PM EST Gender Identity Male 10/17/2023 2:13 PM EST Sexual Orientation Lesbian or Gallo 10/17/2023 2: 13 PM EST documented as of this encounter Miscellaneous Notes * Telephone Encounter - Poppy Rosenthal RN - 08/10/2024 8:41 AM EDT Message received from school attendance secretary: We received a call from DAVID Gardner at [facility] regarding a patient with prostate cancer needing Provengetherapy. The patient leaves in [place] and travel to [place] is too costly and Kendra would like to chat with you about possible treatment at . Would you mind giving her a call back when elias are free at [phone]? Spoke w/DAVID Gardner who stated patient is followed by Dr Rincon and they were in the process of setting him up for Provenge when it became apparent there were issues for the patient in terms of transportation and housing etc. Patient asked if he would be able to receive Provenge at [facility]. They have received authorization for Provenge though she is unsure whether or not the authorization can simply be transferred to or if new Auth is needed. He was assessed by their blood bank and he is in needof a central line. They have sent a urgent referral requesting that he be seen. She will email up records specifically around patient's Provenge application and authorization. Emailed information received. Sent for scanning into medical record. Provenge Coordination Notified by [facility] that pt wished to receive Provenge at . Spoke w/Alice with [facility]-application would need to be submitted as usual but w/o pt signaturesince they have it on file Pt educational materials given to pt at [facility]. Discussed w/ Blair Soler MD: unable to take on new patients for provenge at this time Msg left for Kendra at [facility] letting her know. Pt notified, he stated he would like to transfer all care to , preferably [facility]. Reviewed that no provider at [facility] able to accept prostate cancer pts at this time but hopefully will be able to by end of Sep/Oct. Pt verbalized understanding and stated he will keep his appt on 08/27 as scheduled w/ [facility]. 08/17 Spoke w/ Kendra who stated that it's fine for pt to wait to be seen per Dr Rincon, Agrees that it's likely best for pt to transfer all care to [facility] given his location. Provided # of administrative assistant office manager for Leta Muñiz, who can get msg to entire team- [phone] 08/[address] Welch in [facility] 09/08 at 1400, Dr Welch will accept transfer of care and arrange for Provenge Message left w/[facility] answering service. Spoke w/ pt and reviewed general process for Provenge, reviewed logistics of Provenge, scheduled appt w/ Dr Welch. Plan: Provenge will be on a / schedule aiming to start the week on 09/21 with central line beingplaced the wk of 09/14 w/ labs same day All of patient's questions answered to his apparent satisfaction. He has requested us assistance with transportation for Provenge. He is aware to call clinic with any concerns or questions. 40min call Discussed dates Blood Donor is available: 09/21 & 09/24, 10/05 & 10/08, 10/19 & 10/22 Krystle Méndez RN in blood donor they can accommodate those dates ( can't do starting the next week 09/28) Vein assessment completed by [facility], notes reviewed by Madeleine Méndez RN. Provenge Coordination Confirmed pt wished to use [employer] free car service for transportation on leukopheresis days. Pt educational materials sent to pt via [employer]/mailed to pt. Purchase order obtained ([email or web address]). PO # [phone] . PO# provided to blooddonor room staff via email. Remainder of coordination will occur once pt has seen provider and order for Provenge placed by . documented in this encounter Plan of Treatment Not on file documented as of this encounter Visit Diagnoses Not on filedocumented in this encounter Care Teams Plant And Instrument Engineer Relationship Specialty Start Date End Date Laura Stephenson APRN Yari GAYTAN [facility] [place] [address] PCP - General Family Medicine 02/04/23 09/13/24 documented as of this encounter
--- OUTSIDE RECORDS SUMMARY | 2024-11-24 13:56 | XMS_ITS | Encounter Summary ---
Author Organization [facility] [place] [address] Care Team Providers Care Tugboat Pilot Name Role Phone Laura Stephenson APRN Primary Care Provider [phone] Encounter Details Date Type Department Care Team (Latest Contact Info) Description 10/22/2024 Travel Social History Tobacco Use Types Packs/Day [...] from your doctor or pharmacy? Never 09/08/2024 [facility] Utilities Answer Date Recorded In the [...] any time in the past 12 m [facility], were you homeless or living in [...] on filedocumented in this encounter Care Teams Tugboat Pilot Relationship Specialty Start Date End Date Laura Stephenson, JALEN Yari [facility] [place] [address] PCP - General Family Medicine 09/14/24 documented as of this encounter
--- OUTSIDE RECORDS SUMMARY | 2024-11-24 13:56 | XMS_ITS | Encounter Summary ---
Author Organization [facility] [place] [address] Care Team Providers Care Packaging Assembler Name Role Phone Laura Stephenson APRN Primary Care Provider [phone] Encounter Details Date Type Department Care Team (Latest Contact Info) Description 09/21/2024 Travel Social History Tobacco Use Types Packs/Day [...] from your doctor or pharmacy? Never 09/08/2024 [facility] Utilities Answer Date Recorded In the [...] any time in the past 12 m [facility], were you homeless or living [...] on filedocumented in this encounter Care Teams Packaging Assembler Relationship Specialty Start Date End Date Laura Stephenson, JALEN Yari [facility] [place] [address] PCP - General Family Medicine 09/14/24 documented as of this encounter
--- OUTSIDE RECORDS SUMMARY | 2024-11-24 13:56 | XMS_ITS | Encounter Summary ---
Author Organization [facility] Address [facility] [place] [address] Care Team Providers Care Cylinder Loader Name Role Phone Laura Stephenson APRN Primary Care Provider Encounter Details Date Type Department Care Team (Late st Contact Info) Description 10/01/2024 Telephone Hematology/Oncology at [address] [phone] Ludivina Davis Social History Tobacco Use Types Packs/Day Years [...] from your doctor or pharmacy? Never 09/08/2024 [facility] Utilities Answer Date Recorded In the past 12 months has [employer], [employer], oil, or water [employer] threatened to shut off services in your [...] any time in the past 12 m [facility], were you homeless or living in a jail (including now)? No 09/08/2024 Sex and Gender Information Value Date Recorded Sex Assigned at Male 10/17/2023 2:13 PM EST Gender Identity Male 10/17/2023 2:13 PM EST Sexual Orientation Lesbian or Gallo 10/17/2023 2: 13 PM EST documented as of this encounter Miscellaneous Notes * Telephone Encounter - Ludivina Davis - 10/01/2024 3:45 PM EDT Hernandez called to let Dr. Welch know that he is all set with transportation for the appt on 10/05 to [place]. documented in this encounter Plan of Treatment Not on file documented as of this encounter Visit Diagnoses Not on filedocumented in this encounter Care Teams Cylinder Loader Relationship Specialty Start Date End Date Laura Stephenson, TREASURY REPRESENTATIVE [place] [address] PCP - General Family Medicine 09/14/24 documented as of this encounter
--- OUTSIDE RECORDS SUMMARY | 2024-11-24 13:56 | XMS_ITS | Encounter Summary ---
Author Organization [facility] [place] [address] Care Team Providers Care Product Safety Manager Name Role Phone Unknown Primary Care Provider Unavailabl e Encounter Details Date Type Department Care Team (Late st Contact Info) Description 06/11/2020 Ancillary Procedure Radiology Library at [facility] [place] [address] Mima Null, [address] [place] [address] Social History Tobacco Use Types Packs/Day Years [...] Name Priority Date/Time Associated Diagnosis Comments FILM LIBRARY STORAGE ONLY CT HEAD Routine 06/11/2020 12:00 AM EDT documented in this encounter Results * Film Library- Storage Only CT Head (06/11/2020 12:00 AM EDT) Narrative [facility] - 09/02/2020 4:27 PM EDT This exam is auto-finalizing. It's purpose is for storage only. Mima Null DO G FILM LIBRARY O RDERABLES JAMIE [place], [place] documented in this encounter Visit Diagnoses Not on filedocumented in this encounter Care Teams Product Safety Manager Relationship Specialty Start Date End Date Unknown None PCP - General 07/02/19 08/11/20 documented as of this encounter
--- OUTSIDE RECORDS SUMMARY | 2024-11-24 13:56 | XMS_ITS | Encounter Summary ---
Author Organization [facility] [place] [address] Care Team Providers Care Production Statistical Clerk Name Role Phone Laura Stephenson APRN Primary Care Provider [phone] Encounter Details Date Type Department Care Team (Latest Contact Info) Description 09/24/2024 Travel Social History Tobacco Use Types Packs/Day [...] from your doctor or pharmacy? Never 09/08/2024 [facility] Utilities Answer Date Recorded In the [...] any time in the past [address] [facility], were you homeless or living in a skilled nursing (including now)? No 09/08/2024 Sex and Gender Information Value Date Recorded Sex Assigned at Male 10/17/2023 2:13 PM EST Gender Identity Male 10/17/2023 2:13 PM EST Sexual Orientation Lesbian or Gallo 10/17/2023 2: 13 PM EST documented as of this encounter Plan of Treatment Not on file documented as of this encounter Visit Diagnoses Not on filedocumented in this encounter Care Teams Production Statistical Clerk Relationship Specialty Start Date End Date Laura Stephenson, JALEN Yari [place] [address] PCP - General Family Medicine 09/14/24 documented as of this encounter
--- OUTSIDE RECORDS SUMMARY | 2024-11-24 13:56 | XMS_ITS | Encounter Summary ---
Author Organization [facility] Address [facility] [place] [address] Care Team Providers Care Threat Monitoring Analyst Name Role Phone Sachin, Laura Aguilar APRN Primary Care Provider [phone] Encounter Details Date Type Department Care Team (Late st Contact Info) Description 09/25/2024 [place] [id number] Estella Sánchez PA [facility] [place] [address] Social History Tobacco Use Types Packs/Day Years [...] from your doctor or pharmacy? Never 09/08/[address] [facility] Utilities Answer Date Recorded In [...] any time in the past 12 m onths, were you homeless or living in a senior care (including now)? No 09/08/2024 Sex and Gender Information Value Date Recorded Sex Assigned at Male 10/17/2023 2:13 PM EST Gender Identity Male 10/17/2023 2:13 PM EST Sexual Orientation Lesbian or Gallo 10/17/2023 2: 13 PM EST documented as of this encounter H&P Notes * Estella Sánchez PA - 09/25/2024 9:04 AM EDT Images from the original note were not included. Interventional Radiology Focused Pre-procedure H&P: PCP: Laura Stephenson APRN Referring Provider: No ref. provider found Planned procedure: Tunneled pheresis CVC removal Procedure indication: Prostate cancer, completion of Provenge immunotherapy IR workflow: Procedure request received through Interventional Radiology eDH order queue. There are no answered order specific questions. History of Present Illness: Per chart review, Hernandez Chris is a 64 y.o. male with PMH of prostate CA undergoing Provenge immunotherapy via R IJ tunneled pheresis CVC placed on 09/14 who presents to Interventional Radiology to undergo tunneled pheresis CVC removal. Remainder of patient's medical and surgical history, allergies, medications, and social/family history obtained below as previously outlined in patient's medical record. IR History: As above. Imagin09/14/24 Assessment: 64 y.o. male with prostate CA s/p immunotherapy presenting to Interventional Radiology for tunneled pheresis CVC removal. Plan Planned procedure: Tunneled pheresis CVC removal Labs to be performed day of procedure: No labs Sedation: No Sedation Prophylactic antibiotic : None Contrast: No contrast Additional medications for procedure: Lidocaine Position: Supine Consent: Scanned Medications to discontinue (and days held): None Cytopathology presence needed: No Case Urgency:: G3- Elective Outpatient intervention over14 days Labs: Lab Results Component Value Date [...] on aftera month from discharge. 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 Pertinent ROS: as per HPI Physical Exam: Pending (to be performed in IR the day of procedure) ASA: Pending (to be assessed in IR the day of procedure) Mallampati class: Pending (to be assessed in IR the day of procedure) 09/25/2024 Estella Sánchez PA-C documented in this encounter Plan of Treatment Not on file documented as of this encounter Visit Diagnoses Not on filedocumented in this encounter Care Teams Threat Monitoring Analyst Relationship Specialty Start Date End [place] [address] PCP - General Family Medicine 09/14/24 documented as of this encounter
--- OUTSIDE RECORDS SUMMARY | 2024-11-24 13:56 | XMS_ITS | Encounter Summary ---
Author Organization [facility] [place] [address] Care Team Providers Care Fishing Rod Mechanic Name Role Phone Laura Stephenson APRN Primary Care Provider [phone] Encounter Details Date Type Department Care Team (Latest Contact Info) Description 10/17/2023 Travel Social History Tobacco Use Types Packs/Day [...] on filedocumented in this encounter Care Teams Fishing Rod Mechanic Relationship Specialty Start Date End Date Laura Stephenson APRN [place] [place] [address] PCP - General Family Medicine 02/04/23 09/13/24 documented as of this encounter
--- OUTSIDE RECORDS SUMMARY | 2024-11-24 13:56 | XMS_ITS | Encounter Summary ---
Author Organization [facility] Address [facility] [place] [address] Care Team Providers Care Supervisor Plate Pasting Name Role Phone Mima Null DO Primary Care Provider [phone] Reason for Visit * Consultation (Routine) - Specialty Diagnoses / Procedures Referred By Shaniqua stewart Referred To Contact Hematology and Oncology Diagnoses Malignant neoplasm of prostate Mima Null DO [address] [place] [address] Stj Hem Onc Office [address] [place] [phone] Referral ID Status Reason Start Date Expiration Date V isits Requested Visits Authorized [id number] Consult, [facility] PCP Updated and/or Approved 08/12/2020 08/12/2021 6 6 Encounter Details Date Type Department Care Team (Late st Contact Info) Description 09/06/2020 3:30 PM EDT Office Visit Hematology/Oncology at [address] [phone] Tom Welch MD [facility] [address] [place] [address] Mirlande Fitch, RN [facility] [place] [address] Prostate cancer metastatic to intrapelvic lymph node Social History Tobacco Use Types Packs/Day Years [...] Sign Reading Time Taken Comments Blood Pressure 149/89 09/06/2020 3:41 PM EDT Pulse 67 09/06/2020 3:41 PM EDT Temperature 35.2 ??C (95.3 ??F) 09/06/2020 3:41 PM ED T Respiratory Rate 16 09/06/2020 3:41 PM EDT Oxygen Saturation 99% 09/06/2020 3:41 PM EDT Inhaled Oxygen Concentration - - Weight 68.5 kg (151 lb) 09/06/2020 3:41 PM EDT Height 161 cm (5' 3.39) 09/06/2020 3:41 PM EDT Body Mass Index 26.42 09/06/2020 3:41 PM EDT documented in this encounter Progress Notes * Grace Hannon, RN - 09/06/2020 3:30 PM EDT MEDICAL ONCOLOGY INITIAL NURSING ASSESSMENT ADVANCE DIRECTIVES: In EDH [ ] Has documents [ x ] Will bring in [ x ] IF NO: Advance Directive pamphlet provided : Referral to Care Management : PRESENTING SYSTEMS and PATHOLOGY: difficulty urinating REVIEW OF SYSTEMS: see Rebekah's note Prior Radiotherapy: no[ ] Yes[ x ]Site Date Facility done at [facility] [place] Prior Chemotherapy: no[ ] Yes[ x ] Drug: Oncologist- LastTreatment: Balance difficulty: [ ]no [ x ]yes At risk for fall: [ ] no [x ] yes If yes, actions implemented to prevent fall. Patient/family instructed to avoid independent ambulation. Use wheelchair and ask for assistance of staff while in the clinic. Going to PT for right sided foot weakness ADL [ x ] no limits [ ] needs dressing assistance [ ] needs meal assistance Assistive device:[x ]none [ ]cane [ ]walker [ ]wheelchair [ ]other: explain PAIN ASSESSMENT: [0 ] out of 10 Location: Description: [ ] Dull [ ] Sharp [ ] Burning [ ] Throbbing [ ] Radiating [ ] Continuous [ ]Intermittent Aggravating Factors: [ ] Movement [ ] Position [ ]Immobility [ ]Other Alleviating Factors: [ ]Medication [ ] Positioning [ ] Other Current Pain Management Plan: [ ]Satisfied [ ] Not satisfied SOCIAL ASSESSMENT: See EDH social assessment information entered. Support Systems: live with brother who is supportive, friends locally, parents still alive and livelocal transportation plan: [x ]private vehicle [ ] RCT needs Social Work referral [ ] Unknown at this time needs Social Work referral Barriers to treatment: none at this time Referrals/Interventions: LEARNING STYLE: Visual and verbal, wants written material and verbal discussion. TEACHING: __ NCI ???Chemotherapy and You?? and folder given __ Specific chemotherapy literature provided and reviewed with patient * Tom Welch MD - 09/06/2020 3:30 PM EDT Images from the original note were not included. 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 ONCOLOGIC HISTORY: Oncology History - PSA 67 -08/06/18 PSA 333.9 -08/26/18 TRUS-guided prostate biopsy: - Findings: Prostate volume 47cc. - Path ([facility] review): 11/12 cores positive. Bowdon 4+5 adeno. Tumor invades extraprostatic soft tissue. [...] testosterone <3 -07/21/20 PSA <0.02, testosterone <3 PMH: Hypertension, stroke in 2013, hyperlipidemia Patient Active Problem List Diagnosis ??? Pruritus Social History: Non-smoker, does not drink alcohol, single, lives at home with his brother. Family History: Noncontributory Allergies: Allergies Allergen Reactions ??? Latex ??? Penicillins Medications: Your Medications Accurate as of September 06, 2020 5:16 PM. If you have any questions, ask your nurse or doctor. Continued medications, unchanged Dose Details abiraterone 250 mg Tab Take 1,000 mg by mouth daily. 1,000 mg Refills: 0 amLODIPine 10 mg Tab Commonly known as: Norvasc Take 1 tablet by mouth daily. Would slowly add this back on after a month from discharge. 10 mg Quantity: 30 tablet Refills: 0 atorvastatin 80 mg Tab Commonly known as: Lipitor Take 1 tablet by mouth every evening. 80 mg Quantity: 30 tablet Refills: 0 baclofen 10 mg Tab Commonly known as: Lioresal Take 10 mg by mouth 3 times daily. 10 mg Refills: 0 clopidogreL 75 mg Tab Commonly known as: Plavix Take 1 tablet by mouth daily. 75 mg Quantity: 30 tablet Refills: 0 lisinopriL 40 mg Tab Commonly known as: Prinivil;Zestril Take 1 tablet by mouth daily. Would hold off on this for 2 weeks after discharge and start partial dose at that time. 40 mg Quantity: 30 tablet Refills: 0 predniSONE 5 mg Tab Commonly known as: Deltasone Take 5 mg by mouth daily. 5 mg Refills: 0 tamsulosin 0.4 mg Cap Commonly known as: Flomax Take 0.4 mg by mouth daily. 0.4 mg Refills: 0 Review of Systems: Constitutional: Positive for fatigue. [...] Neurological: Negative. Hematological: Negative for adenopathy. PE: General: AAAx3, in NAD Head: Normocephalic, without obvious abnormality, atraumatic Eyes: PERRL, conjunctiva/corneas clear, EOM's intact, fundi benign, both eyes Ears: Normal TM's and external ear canals, both ears Nose: Nares normal, septum midline, mucosa normal, no drainage or sinus tenderness Throat: Lips, mucosa, and tongue normal; teeth and gums normal Neck: Supple, symmetrical, trachea midline, no adenopathy, thyroid: not enlarged, symmetric, no tenderness/mass/nodules, no carotid bruit or JVD Back: Symmetric, no curvature, ROM normal, no CVA tenderness Lungs: Clear to auscultation bilaterally, respirations unlabored Chest Wall: No tenderness or deformity Heart: Regular rate and rhythm, S1, S2 normal, no murmur, rub or gallop Abdomen: Soft, non-tender, bowel sounds active all four quadrants, no masses, no organomegaly. There is no appreciable ascites Extremities: Extremities normal, atraumatic, no cyanosis or edema Pulses: 2+ and symmetric Skin: Skin color, texture, turgor normal, no rashes or lesions Lymph nodes: Cervical, supraclavicular, and axillary nodes normal Neurologic: Muscle strength 4 out of 5 on the right upper extremity and 5 out of 5 in the lower extremities Vitals BP 149/89 (Patient Position: Sitting) Pulse 67 Temp 35.2 ??C (95.3 ??F) (Temporal) Resp 16 Ht 161 cm (5' 3.39) Wt 68.5 kg (151 lb) SpO2 99% BMI 26.42 kg/m?? Pathology: PATHOLOGIC DIAGNOSIS: CONSULT SLIDES FROM [facility] [place], [place] A. CONSULT MATERIAL ([id number]; 08/26/2018): A) RIGHT BASE LATERAL, BIOPSY: ?PROSTATIC ADENOCARCINOMA, Bowdon score 4+4=8 (Grade Group 4), ? involving 80% of one (1) core. ? The tumor invades extraprostatitc soft tissue. ? Perineural invasion is present. B) RIGHT BASE MED, BIOPSY: ?PROSTATIC ADENOCARCINOMA, Len score 4+5=9 (Grade Group 5), ? involving 95% of one (1) core. ? Perineural invasion is present. C) RIGHT MID LATERAL, BIOPSY: ?PROSTATIC ADENOCARCINOMA, Bowdon score 4+5=9 (Grade Group 5), ? involving 95% of one (1) core. ? Perineural invasion is present. D) RIGHT MID MED, BIOPSY: ?PROSTATIC ADENOCARCINOMA, Len score 4+5=9 (Grade Group 5), ? involving 95% of one (1) core. ? Perineural invasion is present. E) RIGHT APEX LATERAL, BIOPSY: ?PROSTATIC ADENOCARCINOMA, Len score 4+4=8 (Grade Group 4), ? involving 95% of one (1) core. ? Perineural invasion is present. F) RIGHT APEX MED, BIOPSY: ?PROSTATIC ADENOCARCINOMA, Bowdon score 4+4=8 (Grade Group 4), ? involving 95% of one (1) core. ? Suspicious for invasion into extraprostatic soft tissue. ? Perineural invasion is present. G) LEFT BASE LATERAL, BIOPSY: ?PROSTATIC ADENOCARCINOMA, Len score 4+4=8 (Grade Group 4), ? involving 90% of one (1) core. ? Perineural invasion is present. H) LEFT BASE MED, BIOPSY: ?PROSTATIC ADENOCARCINOMA, Bowdon score 4+4=8 (Grade Group 4), ? involving 90% of one (1) core. ? Perineural invasion is present. I) LEFT MID LATERAL, BIOPSY: ?PROSTATIC ADENOCARCINOMA, Len score 4+4=8 (Grade Group 4), ? involving 15% of one (1) core. ? No perineural invasion. J) LEFT MID MED, BIOPSY: ?PROSTATIC ADENOCARCINOMA, Bowdon score 4+5=9 (Grade Group 5), ? involving 95% of one (1) core. ? Perineural invasion is present. K) LEFT APEX LATERAL, BIOPSY: ?PROSTATIC ADENOCARCINOMA, Len score 4+3=7 (Grade Group 3), ? involving 80% of one (1) core. ? Len pattern 4 comprises 90% of the tumor. ? No perineural invasion L) LEFT APEX MED, BIOPSY: ?PROSTATIC ADENOCARCINOMA, Len score 4+5=9 (Grade Group 5), ? involving 95% of one (1) core. ? Perineural invasion is present. Labs: 07/21/2020 BUN 15, creatinine 1.03, total protein 6.7, calcium 9.8, alkaline phosphatase 135, TB 0.7, AST 13, ALT 10, platelets 156, WBC 3.21, hemoglobin 14.2, PSA testosteron 07/21/20 0.02 <3 10/16/18 627.5 608 Imagin07/19/2020 bone density scan: Impression: Normal bone mineral density of the lumbar spine and left forearm. Osteopenia of the left hip with T score -1.8 10/16/18 CT chest: 1. ?There are no suspicious pulmonary nodules or thoracic lymphadenopathy. 2. ?A faint sclerotic focus within the left lateral seventh rib is noted. Although no correlate is noted on outside bone scan from September,, this lesion may represent site of metastasis. 10/11/2018 . ?Extensive PI-RADS 5 tumor replacing the majority of the prostate gland with extraprostatic extension anteriorly into the posterior aspect of the urinary bladder, posteriorly into the mesorectal fat, and superiorly into bilateral seminal vesicles. 2. ?Metastatic lymphadenopathy in the pelvis as seen on outside hospital CT. 3. ?Indeterminate subcentimeter peripherally enhancing lesions in the right [...] to primary prostate. He follows with at [facility] [place] with plan restaging CT scan and pelvic [...] with blood work finalize his follow-up plan. #Germline and somatic mutation testing: Not done yet, but we may consider upon progression. #Osteopenia: New calcium vitamin D supplementation, weightbearing exercise. #History of stroke: Residual deficit on the right side #Frequency/difficulties urinating: Takes tamsulosin intermittently Plan: 1. F/u with Dr. Rincon as scheduled 2. Next visit in 3 months with CBC, cMP, PSA and testosterone The plan was discussed with the patient in details. All questions were answered to patient satisfaction. I would like to thank Dr. Null for allowing me to participate in the care of this wonderful gentleman. documented in this encounter Plan of Treatment Not on file documented as of this encounter Visit Diagnoses Diagnosis Prostate cancer metastatic to intrapelvic lymph node documented in this encounter Care Teams Supervisor Plate Pasting Relationship Specialty Start Date End Date Mima Null DO [address] [place] [address] PCP - General Family Medicine 08/12/20 02/03/23 documented as of this encounter
--- OUTSIDE RECORDS SUMMARY | 2024-11-24 13:56 | XMS_ITS | Encounter Summary ---
Author Organization [facility] Address [facility] [place] [address] Care Team Providers Care Cordwood Cutter Helper Name Role Phone Unknown Primary Care Provider Unavailabl e Reason for Visit * Reason Comments Skin Lesion Encounter Details Date Type Department Care Team (Late st Contact Info) Description 08/03/2020 1:00 PM EDT Office Visit Dermatology at [facility] [address] [place] [address] Krishna Patel MD [facility] [address] [facility] [place] [address] Inflamed seborrheic keratosis; Tinea versicolor; Multiple benign nevi; Rogers angioma Social History Tobacco Use Types Packs/Day Years Used Date Smoking Tobacco: Never Smokeless Tobacco: Never Sex and Gender Information Value Date Recorded Sex Assigned at Male 10/17/2023 2:13 PM EST Gender Identity Male 10/17/2023 2:13 PM EST Sexual Orientation Lesbian or Gallo 10/17/2023 2: 13 PM EST documented as of this encounter Patient Instructions * Patient Instructions* Jada Persaud - 08/03/2020 1:00 PM EDT Rx Ketoconazole 2% cream twice a day for 2 weeks or until clear Liquid Nitrogen You were treated today with Liquid Nitrogen. Liquid nitrogen is extremely cold, and freezes the surface of the skin, causing the lesion to flake off. Treatment with liquid nitrogen can be uncomfortable, but discomfort should subside after a couple of hours. The area treated will look red and irritated, and it may blister up or turn dark, then fall off. This is normal! You do not need any special treatment for the area, but you may find cold compresses and/or a lightapplication of Vaseline soothing. For best results, do not rub or pick at the healing lesion. Expected healing time is 3-4 weeks. Please contact the Dermatology clinic at [phone] if the lesion has not fully resolved after 6 weeks. documented in this encounter Progress Notes * Krishna Patel MD - 08/03/2020 1:00 PM EDT Images from the original note were not included. DERMATOLOGY - NEW PATIENT NOTE Date of service: 08/03/2020 Hernandez Chris : 1960, 60 y.o. Chief Complaint: Chief Complaint Patient presents with ??? Skin Lesion HPI: Hernandez Chris is a 60 y.o. male self-referred at the recommendation of his PCP, by Dr. Null with the following concerns: ?? A smooth lesion on the left forearm that was first identified 5 months. Asymptomatic. Never beentreated or biopsied. ?? Rash on chest, present for about 3 weeks. Been treating it with OTC anti- bacterial ointment. Feels like it's resolving. Intermittent itch. Not present on back. Onset after changing brand of medication lupron to different brand ?? 3 pigmented lesions on the right knee, present for years. Asymptomatic. Never been treated or biopsied. ?? He is currently being treated for prostate cancer. -Ok to leave a detailed message? Yes -Is there anyone with whom we can share your labs and/or biopsy results with? BrotherEmil Relevant Skin History: - Skin cancer (including type): none - none Family History: Melanoma: none Relevant Social History: - [facility] - Lives with his brotherEmil Meds: Current Outpatient Medications Medication Sig Dispense Refill ??? aspirin 325 mg tablet Take 1 tablet by mouth daily. 30 tablet 0 ??? atorvastatin (LIPITOR) 80 mg tablet Take 1 tablet by mouth every evening. 30 tablet 0 ??? clopidogrel (PLAVIX) 75 mg tablet Take 1 tablet by mouth daily. 30 tablet 0 ??? chlorthalidone (HYGROTEN) 25 mg tablet Take 1 tablet by mouth daily. Would slowly add this backon after a month from discharge. ??? lisinopril (PRINIVIL;ZESTRIL) 40 mg tablet Take 1 tablet by mouth daily. Would hold off on thisfor 2 weeks after discharge and start partial dose at that time. 30 tablet ??? amLODIPine (NORVASC) 10 mg tablet Take 1 tablet by mouth daily. Would slowly add this back on after a month from discharge. 30 tablet ??? pantoprazole (PROTONIX) 40 mg tablet Take 1 tablet by mouth daily. 90 tablet No current facility-administered medications for this visit. Allergies: No Known Allergies Review of Systems: - General: Feels well. - Skin: No other skin concerns. Examination: - Constitutional: Patient was alert, well-appearing and in no noticeable distress. - Skin: Skin examination of the face, neck, back, chest, abdomen, right and left upper extremities,right and left lower extremities, and hands was normal with the exception of the findings listed below. Genitalia not examined. Diagnosis/Skin findings/Assessment/Plan: #. Irritated Seborrheic keratosis- yellow to barnes stuck on papule on left arm -benign nature of lesions discussed -patient reassured. Hx of intermittent itch. Plan: Treatment with LN2 Procedure Note: Procedure: Destruction of lesion(s) with cryotherapy. Number: 1 Location: as above Discussed procedure and expectations including risks (including risk of hypopigmentation) and benefits. Verbal consent obtained. Frozen with LN2, 15-30 second thaw time, TWICE. There were no complications; the patient tolerated the procedure well. Post-procedure expectations and wound care were reviewed. #. Tinea Versicolor- Faint erythematous thin scaly papules on the central chest DILLON positive for fungal elements -Advised that condition is secondary to dimorphic yeast Malassezia furfur. Conditions flares in warmer months Plan: Rx Ketoconazole 2% cream twice a day for 2 weeks or until clear #. Benign Nevus - 1mm brown macule on the left forearm and 2 2-3mm brown macules on the right knee w/o concerning findings on dermoscopy -benign nature of lesions discussed -patient reassured. #. Rogers Angioma Multiple 0.2-0.4cm bright red, well-demarcated papules with well formed lobules on dermoscopy on right knee -reassured pt of benign nature and that more would come with increasing age RTC: PRN. Instructed patient to call with questions or concerns. Note initiated by JATINDER Burr. Clinical scribe: Jada Persaud - I am documenting this encounter acting as the scribe for and in the presence of Krishna Patel MD. I performed the above scribed service and agree with the accuracy of the documentation in this encounter. Reviewed and signed by Krishna Patel MD Department of Dermatology [facility] documented in this encounter Plan of Treatment Not on file documented as of this encounter Visit Diagnoses Diagnosis Inflamed seborrheic keratosis Tinea versicolor Pityriasis versicolor Multiple benign nevi Benign neoplasm of skin, site unspecified Rogers angioma Nevus, non-neoplastic documented in this encounter Care Teams Cordwood Cutter Helper Relationship Specialty Start Date End Date Unknown None PCP - General 07/02/19 08/11/20 documented as of this encounter
--- OUTSIDE RECORDS SUMMARY | 2024-11-24 13:56 | XMS_ITS | Encounter Summary ---
[facility] [place] [address] Care Team Providers Care Non Destructive Tester Name Role Phone SachinLaura APRN Primary Care Provider Reason for Visit * Reason Onset Date Comments Medical Care Coordination 09/08/2024 Proven ge Encounter Details Date Type Department Care Team ([facility] Contact Info) Description 09/08/2024 Telephone [place]ematology [place] [id number] Letha Torres, RN Medical Care Coordination (Provenge ) Social History Tobacco Use Types Packs/Day Years Used Date Smoking Tobacco: Never Smokeless Tobacco: Never [id number] Health Literacy Answer Date Recor ded How often do you need to hav e someone help you when you read instructions, pamphlets, or other written material from your doctor or pharmacy? Never 09/08/2024 [facility] Utilities Answer Date Recorded In the past 12 months has [employer], gas, oil, or water [place] threatened to shut off services in your [...] encounter Miscellaneous Notes * Telephone Encounter - Letha Torres RN - 09/08/2024 3:46 PM EDTSummary: provenge Message received from Tom Welch MD: his was the message from Poppy: I'm hoping to be able to get things together so he can start on 09/21 (as blood donor can't start the next week). Please have pt sign consent and get CBC when you see him on 09/08. Shruthi will send you the application and pheresis order to sign once she hears from you that he's going to receive Provenge (and once she gets the 340B status to complete the application). I hope I'vedone everything possible to have it move along smoothly while I'm out. 340 B number provided from Pharmacy and placed on enrollment form Enrollment form and Consent scanned to patient's chart. Staff message sent to Yury concerning plan for 09/21 start. documented in this encounter Plan of Treatment Not on file documented as of this encounter Visit Diagnoses Not on filedocumented in this encounter Care Teams Non Destructive Tester Relationship Specialty Start Date End Date Laura Stephenson, CONTROLLER REPAIRER AND [place] [address] PCP - General Family Medicine 02/04/23 09/13/24 documented as of this encounter
--- OUTSIDE RECORDS SUMMARY | 2024-11-24 13:56 | XMS_ITS | Encounter Summary ---
Author Organization [facility] [place] [address] Care Team Providers Care Carpet Cleaning Technician Name Role Phone Laura Stephenson APRN Primary Care Provider [phone] Encounter Details Date Type Department Care Team (Latest Contact Info) Description 09/14/2024 Travel Social History Tobacco Use Types Packs/Day [...] from your doctor or pharmacy? Never 09/08/2024 [facility] Utilities Answer Date Recorded In the [...] were you homeless or living in a long-term (including now)? No 09/08/2024 Sex and Gender Information Value Date Recorded Sex Assigned at Male 10/17/2023 2:13 PM EST Gender Identity Male 10/17/2023 2:13 PM EST Sexual Orientation Lesbian or Gallo 10/17/2023 2: 13 PM EST documented as of this encounter Plan of Treatment Not on file documented as of this encounter Visit Diagnoses Not on filedocumented in this encounter Care Teams Carpet Cleaning Technician Relationship Specialty Start Date End Date Laura Stephenson, JALEN [place] [address] PCP - General Family Medicine 09/14/24 documented as of this encounter
--- OUTSIDE RECORDS SUMMARY | 2024-11-24 13:56 | XMS_ITS | Encounter Summary ---
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 Never 09/08/2024 [facility] Utilities Answer Date Recorded In [...] any time in the past 12 m [facility], were you homeless or living in a custodial (including now)? 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 Malignant neoplasm of prostate documented in this encounter Administered Medications Inactive Administered Medications - up to 3 most recent administrations Medication Order MAR Action Action Date Dose Rate Site heparin (porcine) (1,000 units/mL) injection 4,000 Units 4,000 Units, Intercatheter, ONCE, 1 dose, On Beata 10/01/24 at 1115, After flushing dual lumen catheter with Sodium Chloride 0.9%, instill heparin 1,000 units/mL to length of catheter, credentialing analyst, Routine Given 10/01/2024 11:15 AM EDT 3,800 Units Central Line sodium chloride 0.9 % (flush) (BD PosiFlush Normal Saline 0.9) flush 20 mL 20 mL, Intercatheter, ONCE, 1 dose, On Beata 10/01/24 at 1115, Routine Given 10/01/2024 10:35 AM EDT 20 mLs Given 10/01/2024 10:30 AM EDT 20 mLs C entral Line documented in this encounter Care Teams Product Director Relationship Specialty Start Date End Date Laura Stephenson, CONTROL TOWER [place] [address] PCP - General Family Medicine 09/14/24 documented as of this encounter
--- OUTSIDE RECORDS SUMMARY | 2024-11-24 13:56 | XMS_ITS | Encounter Summary ---
Author Organization [facility] Address [facility] [place] [address] Care Team Providers Care Mixing Machine Tender Cork Gasket Name Role Phone Laura Stephenson APRN Primary Care Provider [phone] Reason for Referral * Physical Therapy (Routine) - Closed Specialty Diagnoses / Procedures Referred By Shaniqua stewart Referred To Contact Physical Therapy Diagnoses Spasticity due to old stroke You Cisneros MD [facility] [place] [address] Referral ID Status Reason Start Date Expiration Date V isits Requested Visits Authorized [id number] Closed Evaluate and Treat 04/11/2023 10/08/2023 12 12 Reason for Visit * Consultation (Routine) - Closed Specialty Diagnoses / Procedures Referred By Shaniqua stewart Referred To Contact Neurology Diagnoses Hemiplegia of dominant side, late effect of cerebrovascular disease Right sided weakness Spasticity Laura Stephenson, BUSINESS REPRESENTATIVE [address] [place] [address] [facility] [address] [place] [id number] Referral ID Status Reason Start Date Expiration Date V isits Requested Visits Authorized [id number] Closed Consult, Test & Treat PCP Updated and/or Approved 02/04/2023 02/04/2024 12 12 Encounter Details Date Type Department Care Team (Late st Contact Info) Description 04/11/2023 9:00 AM EDT [place] [address] You Cisneros MD [facility] [place] [address] Spasticity due to old stroke Social History Tobacco Use Types Packs/Day Years [...] Sign Reading Time Taken Comments Blood Pressure 153/82 04/11/2023 8:40 AM EDT Pulse 70 04/11/2023 8:40 AM EDT Temperature - - Respiratory Rate - - Oxygen Saturation - - Inhaled Oxygen Concentration - - Weight 68.9 kg (152 lb) 04/11/2023 8:40 AM EDT Height 162.6 cm (5' 4) 04/11/2023 8:40 AM EDT Body Mass Index 26.09 04/11/2023 8:40 AM EDT documented in this encounter Patient Instructions * Patient Instructions* You Cisneros MD - 04/11/2023 9:00 AM EDT Spasticity due to old stroke You were seen to address the main complaint of knee pain, and my assessment is notable for spasticity in the upper and lower extremities. Mild weakness in the upper and lower extremities on the rightthat was previously affected by the stroke in 2013. Examination of your gait or your walking is notable for the fact that you have a lot of ankle plantarflexion that caused you to walk on your toes and drag your right foot. It is also affecting the way you bear weight on your right knee and I thinkthat is part of the reason for the right knee pain. In order to treat your right knee pain, I thinkyou need to demonstrate proper mechanics of weightbearing [...] it fits into the brace more easily. documented in this encounter Progress Notes * You Cisneros MD - 04/11/2023 9:00 AM EDT Images from the original note were not included. Department of Neurology, Movement Disorders Consultation Service New Patient Office Consultation Patient Name: Hernandez Chris Provider: You Cisneros MD PhD ([id number]) Vis: 11 Apr 2023 Requesting Physician: Laura Stephenson Reason for consultation: worsening of upper extremity symptoms following stroke Patient ID: Hernandez Chris is a 63 y.o. year old right handed male with a history of right upper extremity symptoms in the setting of the following problems: Patient Active Problem List Diagnosis Code ??? Pruritus L29.9 ??? 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 Hypertension I10 ??? Prostate cancer C61 History of Present Illness Seen previously for RUE stiffness. New problems of walking. When he is walking he has pain in the right knee. It's not always there. Related to walking. It's been going on for months. He does get injection in the knee about a year ago for pretty much the same problem The problem with the right hand started after his stroke in 2013, was presenting with pure motor symptoms to [facility], in 2013, then transferred to [facility] and treated for stroke. 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 No loss of sensation. He says the right hand is worse. Feels more heavy. At times feels sluggish. Hard for him to move. No energy. Gets tired easily. He is right handed. He writes, eats cooks, uses right hand for ADLs. Handwriting has gotten smaller. No tremor. + constipation No hyposmia. People say he looks more serious. His voice has not changed. He takes longer to do things. He has fallen in the past. He has poor balance. He does not shuffle his feet when he walks. Sleep: not good because he has trouble staying asleep, interrupted by need to urinate. He does feel fatigued. He sits in a chair watching TV and falls asleep. HE has urinary urgency. Review of Systems Review of Systems - Negative except as noted above. Past Medical History Patient Active Problem List Diagnosis Code ??? Pruritus L29.9 ??? 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 Hypertension I10 ??? Prostate cancer C61 Past Surgical History No past surgical history on file. Social History Social History Socioeconomic History ??? Marital status: Single Spouse name: Not on file ??? Number of children: Not on file ??? Years of education: Not on file ??? Highest education level: Not on file Occupational History ??? Not on file Tobacco Use ??? Smoking status: Never ??? Smokeless tobacco: Never Vaping Use ??? Vaping Use: Never used Substance and Sexual Activity ??? Alcohol use: Not on file ??? Drug use: Not on file ??? Sexual activity: Not on file Other Topics Concern ??? Not on file Social History Narrative He was born in [place] Grew up in [place] He went to [employer] in [place] Studied fine arts and advertising design. He came back and everything went to computers. When he went to school it was not digital until the last year he was there. He has a brother, twin, identical twin Emil Three sisters, Jessi Devi and Elizabeth. All younger. No neurological illnesses run in the family to his knowledge. He is close to two of the sisters. Panic disorders seem to run in the family with anxiety. He does not have it but his brother and two of his sister. Parents just 13 days apart from each other. Father was 88 and mother was 84. Father had diabetes. Mother had difficulty walking and peripheral artery disease. Cyst in her head perhaps. He has no children. He took other jobs to make ends meet. 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 Lives in [place]. 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 Disabled from the stroke. Travels to [facility] for prostate cancer since 2018. Social Determinants of Health Financial Resource Strain: Not on file Food Insecurity: Not on file Transportation Needs: Not on file Physical Activity: Not on file Housing Stability: Not on file Family History No family history on file. No family status information on file. Allergies Allergies Allergen Reactions ??? Latex ??? Penicillins Current Medications Current Outpatient Medications Medication Sig Dispense Refill ??? sertraline (Zoloft) 25 mg tablet TAKE ONE TABLET BY MOUTH EVERY DAY FOR DEPRESSION AND ANXIETY - COMBINE WITH 50MG TABLETS FOR A TOTAL OF 75MG DAILY ??? sertraline (Zoloft) 50 mg tablet Take 50 mg by mouth daily. ??? abiraterone 250 mg Tablet Take 1,000 mg by mouth daily. ??? predniSONE (Deltasone) 5 mg Tablet Take 5 mg by mouth daily. ??? baclofen (Lioresal) 10 mg Tablet Take 10 mg by mouth 3 times daily. ??? tamsulosin (Flomax) 0.4 mg Capsule Take 0.4 mg by mouth daily. ??? clopidogrel (PLAVIX) 75 mg tablet Take 1 tablet by mouth daily. 30 tablet 0 ??? lisinopril (PRINIVIL;ZESTRIL) 40 mg tablet Take 1 tablet by mouth daily. Would hold off on thisfor 2 weeks after discharge and start partial dose at that time. 30 tablet ??? amLODIPine (NORVASC) 10 mg tablet Take 1 tablet by mouth daily. Would slowly add this back on after a month from discharge. 30 tablet ??? atorvastatin (LIPITOR) 80 mg tablet Take 1 tablet by mouth every evening. (Patient not taking: Reported on 08/03/2020) 30 tablet 0 No current facility-administered medications for this visit. Objective: Vitals: 04/11/23 0840 BP: 153/82 BP Location ([facility]): Right arm Patient Position: Sitting BP Cuff Sizes: Adult (25-34 cm) Pulse: 70 Weight: 68.9 kg (152 lb) Height: 162.6 cm (5' 4) General: Very pleasant male who appears healthy Head: normocephalic. Eyes: anicteric ENT: intact Cardiovascular: Regular rate and rhythm, no murmur Pulmonary: Breathing comfortably Abdomen: no hepatomegaly Dermatologic: no seborheic changes Extremities: no edema Neurological Exam ?? Mental Status: Intact historian. Speech fluent ?? Cranial Nerves: ?? CN I: not tested ?? CN II: intact to confrontation testing ?? CN III,IV,: intact versions ?? CN V: intact sensation ?? CN VII: intact facial expression. Symmetric smile ?? CN VIII: intact ?? CN IX/X: palate elevates midline ?? CN XI: shoulder shrug decreased on the right ?? CN XII: tongue midline ?? Motor: he has right spastic hemiplegia with 4+/5 strength in extensor>flexor weakness proximal = distal, UE= LE ?? He has a right foot drop with plantar flexion spasticity and tight heel cord. ?? Sensory: intact to vibration and pin ?? Reflexes: brisk 3+ right biceps, + Weiner's, 3+ patellar, no clonus, right toe upgoing, left toe is down ?? Coordination: intact ?? Gait: he has a spastic gait pattern with right foot dragging with circumduction, and toe making contact with the floor on advancing his steps. Data/Imaging Reviewed: Assessment and Plan: Spasticity due to old stroke You were seen to address the main complaint of knee pain, and my assessment is notable for spasticity in the upper and lower extremities. Mild weakness in the upper and lower extremities on the rightthat was previously affected by the stroke in 2013. Examination of your gait or your walking is notable for the fact that you have a lot of ankle plantarflexion that caused you to walk on your toes and drag your right foot. It is also affecting the way you bear weight on your right knee and I thinkthat is part of the reason for the right knee pain. In order to treat your right knee pain, I thinkyou need to demonstrate proper mechanics of weightbearing [...] it fits into the brace more easily. Patient Instructions Spasticity due to old stroke You were seen to address the main complaint of knee pain, and my assessment is notable for spasticity in the upper and lower extremities. Mild weakness in the upper and lower extremities on the rightthat was previously affected by the stroke in 2013. Examination of your gait or your walking is notable for the fact that you have a lot of ankle plantarflexion that caused you to walk on your toes and drag your right foot. It is also affecting the way you bear weight on your right knee and I thinkthat is part of the reason for the right knee pain. In order to treat your right knee pain, I thinkyou need to demonstrate proper mechanics of weightbearing [...] it fits into the brace more easily. Orders Placed This Encounter Procedures ??? Referral to Physical Therapy Referral Priority: Routine Referral Type: Physical Therapy Referral Reason: Evaluate and Treat Requested Specialty: Physical Therapy Number of Visits Requested: 12 You Cisneros MD PhD [facility] Neurology documented in this encounter Miscellaneous Notes * Assessment & Plan Note - You Cisneros MD - 04/11/2023 10:04 AM EDT Associated Problem(s): Spasticity due to old stroke You were seen to address the main complaint of knee pain, and my assessment is notable for spasticity in the upper and lower extremities. Mild weakness in the upper and lower extremities on the rightthat was previously affected by the stroke in 2013. Examination of your gait or your walking is notable for the fact that you have a lot of ankle plantarflexion that caused you to walk on your toes and drag your right foot. It is also affecting the way you bear weight on your right knee and I thinkthat is part of the reason for the right knee pain. In order to treat your right knee pain, I thinkyou need to demonstrate proper mechanics of weightbearing [...] it fits into the brace more easily. documented in this encounter Plan of Treatment Scheduled Referrals Name Type Priority Associated Diagnoses Orde r Schedule Referral to Physical Therapy Outpatient Referral Routine Spasticity due to old stroke Ordered: 04/11/2023 documented as of this encounter Visit Diagnoses Diagnosis Spasticity due to old stroke documented in this encounter Care Teams Mixing Machine Tender Cork Gasket Relationship Specialty Start Date End Date Laura Stephenson APRN [address] [place] [address] PCP - General Family Medicine 02/04/23 09/13/24 documented as of this encounter
--- OUTSIDE RECORDS SUMMARY | 2024-11-24 13:56 | XMS_ITS | Encounter Summary ---
[place] [address] Care Team Providers Care Biopsychologist Name Role Phone SachinLaura APRN Primary Care Provider [phone] Reason for Referral * Diagnostic Test (Routine) - Closed Specialty Diagnoses / Procedures Referred By Contac t Referred To Contact Radiology Diagnoses Chronic pain of right knee Procedures MRI Knee wo Contrast Right (Generic) Rosas Kaur MD [id number] [place] [address] Referral ID Status Reason Start Date Expiration Date V isits Requested Visits Authorized [id number] Closed Specialty Service Requested 10/01/2023 03/31/2025 1 1 Reason for Visit * Diagnostic Test (Routine) - Closed Specialty Diagnoses / Procedures Referred By Contac t Referred To Contact Radiology Diagnoses Chronic pain of right knee Procedures MRI Knee wo Contrast Right (Generic) Rosas Kaur MD [address] [address] [place] [address] Referral ID Status Reason Start Date Expiration Date V isits Requested Visits Authorized [id number] Closed Specialty Service Requested 10/01/2023 03/31/2025 1 1 Encounter Details Date Type Department Care Team (Late st Contact Info) Description 10/17/2023 2:37 PM EST - 10/17/2023 11:59 PM EST Hospital Encounter MRI at [facility] [place] [address] Rosas Kaur MD [address] [address] Chronic pain of right knee Discharge Disposition: Home Social History Tobacco Use [...] Sig Dispensed Refills Start Date End Date sertraline (Zoloft) 25 mg tablet TAKE ONE [...] Take 0.4 mg by mouth as needed. abiraterone 250 mg Tablet Take 1,000 mg by mouth daily. 09/08/2024 predniSONE (Deltasone) 5 mg Tablet Take 5 mg by mouth daily. 09/08/2024 baclofen (Lioresal) 10 mg Tablet Take 10 mg by mouth 3 times daily. 09/08/2024 atorvastatin (LIPITOR) 80 mg tablet Take 1 tablet by mouth every evening. 30 tablet 0 04/07/2014 09/08/2024 documented as of this encounter Plan of Treatment Not on file documented as of this encounter Procedures Procedure Name Priority Date/Time Associated Diagnosis Comments MRI KNEE RIGHT WO CONTRAST Routine 10/17/2023 3:49 PM EST Chronic pain of right knee documented in this encounter Results * MRI Knee wo Contrast Right (Generic) (10/17/2023 3:49 PM EST) Anatomical Region Laterality Modality Knee Right Magnetic Resonan ce Impressions 10/17/2023 5:02 PM EST 1. Signal abnormality in the medial meniscus body with no extension into the articular surface is equivocal for a meniscal tear and may represent meniscal degeneration. 2. Grade 1 strain of deep MCL (meniscofemoral ligament) and MCL bursitis. 3. Small knee fusion, and ruptured Rivera's cyst. 4. Mild tricompartmental chondromalacia without a high-grade, or full-thickness defect Thank you for letting us participate in the care of this patient. ??If you are a health care provider and have any questions regarding this report, please contact the number below. ??For patients who have questions please contact the health managed care liaison that requested your imaging first. ? Electronically signed by: Raheem Rizvi MD, [facility] ([phone]), at 10/17/2023 5:02 PM Narrative 10/17/2023 5:02 PM EST EXAMINATION: MRI KNEE WO CONTRAST RIGHT (GENERIC) CLINICAL HISTORY: chronic pain of right knee; xrays unrevealing;?meniscal tear or other soft tissue injury. TECHNIQUE: Noncontrast MRI of the knee was performed using axial T1, T2 FS; coronal PD, PD FS; sagittal PD and PD FS sequences. COMPARISON: None FINDINGS: ACL: Intact PCL: Intact MCL: Fluid interposed between deep and superficial component of MCL compatible with MCL bursitis. There is increased signal of the meniscofemoral ligament (deep MCL) compatible with grade 1 strain (series 7 image 17). LCL: Intact Medial Meniscus: There is mild increased signal change in the region meniscus body (series 7 image 17) no definitive extension into the articular surface is equivocal for meniscal tear. The meniscal root attachments are intact. Lateral Meniscus: Intact. Apical blunting and surface fraying. Extensor Mechanism: Tendons, patellofemoral retinacula and iliotibial band are intact. Posterolateral Corner: Intact Posteromedial Corner: Intact. Ruptured Rivera cyst with extravasated fluid, tracking along the posterior calf. Bone: Intact with normal marrow signal. Cartilage: Patellofemoral: Diffuse superficial chondral fibrillation. No full-thickness or focal defect Medial: Diffuse low-grade chondral thinning along the central weightbearing femoral condyle and tibial plateau. No full-thickness chondral defect. No subchondral edema. Lateral: Diffuse superficial chondral fibrillation. No full-thickness or equal defect Tibiofibular: Intact Effusion: Small joint effusion present Muscle: Normal bulk and signal. Mild soft tissue swelling along the anterior knee. No focal fluid collection. Neurovascular Structures: Normal course, caliber and signal. Procedure Note Raheem Rizvi MD - 10/17/2023 EXAMINATION: MRI KNEE WO CONTRAST RIGHT (GENERIC) CLINICAL HISTORY: chronic pain of right knee; xrays unrevealing;?meniscaltear or other soft tissue injury. TECHNIQUE: Noncontrast MRI of the knee was performed using axial T1, T2FS; coronal PD, PD FS; sagittal PD and PD FS sequences. COMPARISON: None FINDINGS: ACL: Intact PCL: Intact MCL: Fluid interposed between deep and superficial component of MCLcompatible with MCL bursitis. There is increased signal of the meniscofemoralligament (deep MCL) compatible with grade 1 strain (series 7 image 17). LCL: Intact Medial Meniscus: There is mild increased signal change in the regionmeniscus body (series 7 image 17) no definitive extension into the articularsurface is equivocal for meniscal tear. The meniscal root attachments are intact. Lateral Meniscus: Intact. Apical blunting and surface fraying. Extensor Mechanism: Tendons, patellofemoral retinacula and iliotibial bandare intact. Posterolateral Corner: Intact Posteromedial Corner: Intact. Ruptured Rivera cyst with extravasatedfluid, tracking along the posterior calf. Bone: Intact with normal marrow signal. Cartilage: Patellofemoral: Diffuse superficial chondral fibrillation. Nofull-thickness or focal defect Medial: Diffuse low-grade chondral thinning along the centralweightbearing femoral condyle and tibial plateau. No full-thickness chondral defect.No subchondral edema. Lateral: Diffuse superficial chondral fibrillation. No full-thickness orequal defect Tibiofibular: Intact Effusion: Small joint effusion present Muscle: Normal bulk and signal. Mild soft tissue swelling along theanterior knee. No focal fluid collection. Neurovascular Structures: Normal course, caliber and signal. IMPRESSION 1. Signal abnormality in the medial meniscus body with no extension intothe articular surface is equivocal for a meniscal tear and may representmeniscal degeneration. 2. Grade 1 strain of deep MCL (meniscofemoral ligament) and MCLbursitis. 3. Small knee fusion, and ruptured Rivera's cyst. 4. Mild tricompartmental chondromalacia without a high-grade, orfull-thickness defect Thank you for letting us participate in the care of this patient. If youare a health care provider and have any questions regarding this report,please contact the number below. For patients who have questions please contactthe health managed care liaison that requested your imaging first. Electronically signed by: Raheem Rizvi MD, [facility]([phone]), at 10/17/2023 5:02 PM Rosas Kaur MD IMG MRI ORDER JER documented in this encounter Visit Diagnoses Diagnosis Chronic pain of right knee documented in this encounter Care Teams Biopsychologist Relationship Specialty Start Date End Date Laura [place] [address] PCP - General Family Medicine 02/04/23 09/13/24 documented as of this encounter
--- OUTSIDE RECORDS SUMMARY | 2024-11-24 13:56 | XMS_ITS | Encounter Summary ---
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 Never 09/08/2024 [facility] Utilities Answer Date Recorded In the [...] any time in the past 12 m [facility], were you homeless or living in a [...] Units, Intercatheter, ONCE, 1 dose, On Beata 09/17/24 at 1115, After flushing dual lumen catheter with Sodium Chloride 0.9%, instill heparin 1,000 units/mL to length of catheter, manufactured buildings supervisor, Routine Given 09/17/2024 11:15 AM EDT 3,800 Units sodium chloride 0.9 % (flush) (BD PosiFlush Normal Saline 0.9) flush 20 mL 20 mL, Intercatheter, ONCE, 1 dose, On Beata 09/17/24 at 1115, Routine Given 09/17/2024 10:40 AM EDT 20 mLs documented in this encounter Care Teams Industrial Paramedic Relationship Specialty Start Date End Date Laura Stephenson, TOWER DIRECTOR [address] [place] [address] PCP - General Family Medicine 09/14/24 documented as of this encounter
--- OUTSIDE RECORDS SUMMARY | 2024-11-24 13:56 | XMS_ITS | Encounter Summary ---
Author Organization [facility] Address [facility] [place] [address] Care Team Providers Care Harness Builder Name Role Phone Sachin Laura Aguilar APRN Primary Care Provider [phone] Reason for Referral * Diagnostic Test (Routine) - Closed Specialty Diagnoses / Procedures Referred By Contac t Referred To Contact Radiology Diagnoses Malignant neoplasm of prostate metastatic to bone Procedures NM PET CT PSMA Prostate (Illuccix) Tom Welch MD [facility] [address] [place] [address] [place] [address] Referral ID Status Reason Start Date Expiration Date V isits Requested Visits Authorized [id number] Closed Specialty Service Requested 09/08/2024 03/09/2026 1 1 * Diagnostic Test (Routine) - Closed Specialty Diagnoses / Procedures Referred By Contac t Referred To Contact Radiology Diagnoses Malignant neoplasm of prostate metastatic to bone Procedures IR Dialysis Access - Tunneled Line Tom Welch MD [facility] [place] [address] [place] [address] Referral ID Status Reason Start Date Expiration Date V isits Requested Visits Authorized [id number] Closed Specialty Service Requested 09/08/2024 03/09/2026 1 1 Reason for Visit * Consultation (Urgent) - Closed Specialty Diagnoses / Procedures Referred By Contac t Referred To Contact Hematology and Oncology Diagnoses Prostate cancer Salma Rincon MD [address] [place] [address] [facility] On[facility] Office [address] [place] [phone] Referral ID Status Reason Start Date Expiration Date V isits Requested Visits Authorized [id number] Closed Consult, Test & Treat 08/06/2024 08/06/2025 1 1 Encounter Details Date Type Department Care Team (Late st Contact Info) Description 09/08/2024 2:00 PM EDT Office Visit Hematology/Oncology at [address] [address] Tom Welch MD [facility] [address] [place] [address] Danielle Pool APRN [facility] [place] [place] [address] Malignant neoplasm of prostate metastatic to bone (Primary Dx) Social History Tobacco Use Types Packs/Day Years Used Date Smoking Tobacco: Never Smokeless Tobacco: Never [id number] Health Literacy Answer Date Recor ded How often do you need to hav e someone help you when you read instructions, pamphlets, or other written material from your doctor or pharmacy? Never 09/08/2024 [facility] Utilities Answer Date Recorded In the [...] any time in the past 12 m [facility], were you homeless or living in a residential (including now)? No 09/08/2024 Sex and Gender Information Value Date Recorded Sex Assigned at Male 10/17/2023 2:13 PM EST Gender Identity Male 10/17/2023 2:13 PM EST Sexual Orientation Lesbian or Gallo 10/17/2023 2: 13 PM EST documented as of this encounter Last Filed Vital Signs Vital Sign Reading Time Taken Comments Blood Pressure 169/76 09/08/2024 2:40 PM EDT Pulse 57 09/08/2024 2:40 PM EDT Temperature 36.4 ??C (97.5 ??F) 09/08/2024 2:40 PM ED T Respiratory Rate 16 09/08/2024 2:40 PM EDT Oxygen Saturation 100% 09/08/2024 2:40 PM EDT Inhaled Oxygen Concentration - - Weight 66.2 kg (146 lb) 09/08/2024 2:40 PM EDT Height 160 cm (5' 3) 09/08/2024 2:40 PM EDT Body Mass Index 25.86 09/08/2024 2:40 PM EDT documented in this encounter Progress Notes * Grace Hannon RN - 09/08/2024 2:[address] [facility] Patient Medical Oncology Note SOCIAL ASSESSMENT: See [facility] social assessment information entered. 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 [ x] yes [ ] no [facility] FUNCTIONAL SCREENING: Balance difficulty: [ x ]no [ ]yes At risk for fall: [ x ] no [ ] yes If yes, actions implemented to prevent fall. Patient/family instructed to avoid independent ambulation. Use wheelchair and ask for assistance of staff while in the clinic. ADL [ x] no limits [ ] needs dressing assistance [ ] needs meal assistance Assistive device:[ x ]none [ ]cane [ ]walker [ ]wheelchair [ ]other: explain PAIN ASSESSMENT: [ 0 ] out of 10 Location: Description: [ ] Dull [ ] Sharp [ ] Burning [ ] Throbbing [ ] Radiating [ ] Continuous [ ] Intermittent Aggravating Factors: [ ] Movement [ ] Position [ ] Immobility [ ] Other Alleviating Factors: [ ] Medication [ ] Positioning [ ] Other Current Pain Management Plan: [ ] Satisfied [ ] Not satisfied LEARNING STYLE: Learning Needs Assessment up to date (yearly) [ ] TEACHING: __ NCI ???Chemotherapy and You?? and folder given __ Specific chemotherapy literature provided and reviewed with patient VASCULAR ACCESS ASSESSMENT: getting chemo? [ ]yes [ ]no Need port? [ ] yes [ ] no * Tom Welch MD - 09/08/2024 2:00 PM EDT Images from the original note were not included. 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 ONCOLOGIC HISTORY: Oncology History - PSA 67 -08/06/18 PSA 333.9 -08/26/18 TRUS-guided prostate biopsy: - Findings: Prostate volume 47cc. - Path ([facility] review): 12/ cores positive. Capac 4+5 adeno. Tumor invades extraprostatic soft tissue. [...] is also concerning for metastatic involvement. -06/18/24 [id number]: TMB not evaluable. MSI-high not detected. Tumor fractino <0.3%. No actional variants identified. VUS in EPCAM and FLT4. 11/21: SUVmax 9.2 -06/19/24 Started Enzalutamide 160mg daily -07/16/24 PSA 1.40 -08/04/24 PSA 1.90 -08/27/24 PSA 3.20, Lupron 22.5mg (last dose before transitioning of care to [facility]) -08/27/24 MRI lumbar spine: New superior endplate compression deformity of L2 with 20% height loss.There is diffuse STIR hyperintensity favored to represent edema from acute compression deformity. The treated lesion in the L2 vertebral body appears similar in size on the T1 weighted images. Interval history:Hernandez Chris is in clinic to transfer his oncological care to . He has been following with Dr. Rincon at [facility]. Treatment with Sipuleucel-T was recommended. Today he would like to discuss pros and cons of treatment with Provenge. Denies any new pain. No changes in urination is currently on enzalutamide 160 mg a day. Last Lupron 22.5 mg was given on August 27 PMH: CAD, hyperlipidemia, diabetes type 2 Hypertension, stroke [...] Medications: Your Medications Accurate as of September 08, 2024 6:36 PM. If you have any questions, ask [...] care provider to review them with you. STOPPED Medications abiraterone 250 mg tablet Commonly known as: Zytiga Stopped by: TOM WELCH Review of Systems: Constitutional: Positive for fatigue. [...] Psych: Conversant, normal mood and affect. BP 169/76 (Patient Position: Sitting) Pulse 57 Temp 36.4 ??C (97.5 ??F) (Temporal) Resp 16 Ht 160 cm (5' 3) Wt 66.2 kg (146 lb) SpO2 100% BMI 25.86 kg/m?? Pathology: PATHOLOGIC DIAGNOSIS: CONSULT SLIDES FROM [facility] [place] [place] A. CONSULT MATERIAL ([id number]; 08/26/2018): A) RIGHT BASE LATERAL, BIOPSY: PROSTATIC ADENOCARCINOMA, Capac score 4+4=8 (Grade Group 4), involving 80% of one (1) core. The tumor invades extraprostatitc soft tissue. Perineural invasion is present. B) RIGHT BASE MED, BIOPSY: PROSTATIC ADENOCARCINOMA, Capac score 4+5=9 (Grade Group 5), involving 95% of one (1) core. Perineural invasion is present. C) RIGHT MID LATERAL, BIOPSY: PROSTATIC ADENOCARCINOMA, Capac score 4+5=9 (Grade Group 5), involving 95% [...] F) RIGHT APEX MED, BIOPSY: PROSTATIC ADENOCARCINOMA, Len score 4+4=8 (Grade Group 4), involving 95% of one (1) core. Suspicious for invasion into extraprostatic soft tissue. Perineural invasion is present. G) LEFT BASE LATERAL, BIOPSY: PROSTATIC ADENOCARCINOMA, Capac score 4+4=8 (Grade Group 4), involving 90% of one (1) core. Perineural invasion is present. H) LEFT BASE MED, BIOPSY: PROSTATIC ADENOCARCINOMA, Capac score 4+4=8 (Grade Group 4), involving 90% of one (1) core. Perineural invasion is present. I) LEFT MID LATERAL, BIOPSY: PROSTATIC ADENOCARCINOMA, Len score 4+4=8 (Grade Group 4), involving 15% of one (1) core. No perineural invasion. J) LEFT MID MED, BIOPSY: PROSTATIC ADENOCARCINOMA, Len score 4+5=9 (Grade Group 5), involving 95% of one (1) core. Perineural invasion is present. K) LEFT APEX LATERAL, BIOPSY: PROSTATIC ADENOCARCINOMA, Capac score 4+3=7 (Grade Group 3), involving 80% of one (1) core. Capac pattern 4 comprises 90% of the tumor. No perineural invasion L) LEFT APEX MED, BIOPSY: PROSTATIC ADENOCARCINOMA, Capac score 4+5=9 (Grade Group 5), involving 95% of one (1) core. Perineural invasion is present. Labs: WBC 4.04 PSA testosteron 08/27/24 3.2 <3 08/04/24 1.9 07/21/20 0.02 <3 10/16/18 627.5 608 Imagin07/19/2020 [...] to primary prostate. He follows with at [facility] with plan restaging CT scan and pelvic [...] Mr. Chris followed with Dr. Rincon at [facility], due to more difficulties with transportation he [...] with Provenge. Informed verbal consent was obtained. #Germline and somatic mutation testing: Not done yet, but we may consider upon progression. #Osteopenia: New calcium vitamin D supplementation, weightbearing exercise. #History of stroke: Residual deficit on the right side #Frequency/difficulties urinating: Takes tamsulosin intermittently Plan: 1. Schedule dual lumen catheter placement 2. Continue enzalutamide 260 mg a day 3. PSMA PET scan prior to next visit 4. Next visit with MD with CBC, CMP, PSA, testosterone and Lupron injection on November 24 The plan was discussed with the patient in details. All questions were answered to patient satisfaction. I would like to thank Dr. Null for allowing me to participate in the care of this wonderful gentleman. documented in this encounter Plan of Treatment Scheduled Orders Name Type Priority Associated Diagnoses Orde r Schedule PSA (Ultrasensitive) Lab Routine Malignant neoplasm of prostate metastatic to bone Expected: 09/08/2024, Expires: 03/10/2025 CBC (with Diff) Lab Routine Malignant neoplasm of prostate metastatic to bone Expected: 09/08/2024, Expires: 03/10/2025 Comprehensive metabolic panel Lab Routine Malignant neoplasm of prostate metastatic to bone Expected: 09/08/2024, Expires: 03/10/2025 Testosterone, total Lab Routine Malignant neoplasm of prostate metastatic to bone Expected: 09/08/2024, Expires: 03/10/2025 PSA (Ultrasensitive) Lab Routine Malignant neoplasm of prostate metastatic to bone Every 3 months for 4 Occurrences starting 09/08/2024 until 09/08/2025 CBC (with Diff) Lab Routine Malignant neoplasm of prostate metastatic to bone Every 3 months for 4 Occurrences starting 09/08/2024 until 09/08/2025 Comprehensive metabolic panel Lab Routine Malignant neoplasm of prostate metastatic to bone Every 3 months for 4 Occurrences starting 09/08/2024 until 09/08/2025 Testosterone, total Lab Routine Malignant neoplasm of prostate metastatic to bone Every 3 months for 4 Occurrences starting 09/08/2024 until 09/08/2025 documented as of this encounter Results * NM PET CT PSMA Prostate (Illuccix) (11/09/2024 3:37 PM EST) WORKSTATION ID [id number] RAD Anatomical Region Laterality Modality Positron Emissio n Tomography (PET) Impressions 11/10/2024 1:44 PM EST 1. ??Metastatic lymphadenopathy in the right supraclavicular space, mediastinum and right hilum. 2. ??Right-sided pleural-based metastasis. 3. ??Multiple osseous metastases. Thank you for referring this patient to [facility]. Preliminary report signed by: Sergio [...] who have questions please contact the health long term care social worker that requested your imaging first. ? Electronically signed by: Rajeev Osullivan MD, [facility] ([phone]), at 11/10/2024 1:44 PM Narrative 11/10/2024 1:44 [...] Thank you for referring this patient to [facility]. Preliminary report signed by: Sergio [...] patients who have questions please contactthe health long term care social worker that requested your imaging first. Tom Welch MD IMG PET ORDERABLES * IR Dialysis Access - Tunneled Line (09/14/2024 11:07 AM EDT) Anatomical Region Laterality Modality Abdomen X-Ray Angiograph y Narrative 09/15/2024 2:29 PM EDT Interventional Radiology Procedure Note Procedure: Tunneled hemodialysis catheter implant ?? Indication: Prostate cancer, durable usp central venous access for blood collection for [...] as documented by the interventional radiology nurse. dust collector operator: ??Anitha Greene MD Attending of record: Fortino Paulino MD I, Dr. Paulino, was not present for the procedure. 09/14/2024 Tom Welch MD IMG IR ORDERABLES documented in this encounter Visit Diagnoses Diagnosis Malignant neoplasm of prostate metastatic to bone- Primary Malignant neoplasm of prostate Malignant neoplasm of prostate metastatic to bone Malignant neoplasm of prostate Malignant neoplasm of prostate metastatic to bone Malignant neoplasm of prostate documented in this encounter Care Teams Harness Builder Relationship Specialty Start Date End Date Laura Stephenson, [place] [address] PCP - General Family Medicine 02/04/23 09/13/24 documented as of this encounter
--- OUTSIDE RECORDS SUMMARY | 2024-11-24 13:56 | XMS_ITS | Encounter Summary ---
Author Organization [facility] [place] [address] Care Team Providers Care Medication Reconciliation Technician Name Role Phone Unknown Primary Care Provider Unavailabl e Reason for Visit * Reason Onset Date Comments Other 11/03/2019 community resour naren Encounter Details Date Type Department Care Team (Late st Contact Info) Description 11/03/2019 Telephone Hematology/Oncology at [address] [address] Ely Raymond MSW OFFICE OF CARE MANAGEMENT Other (community resources) Social History Tobacco Use Types Packs/Day Years Used Date Smoking Tobacco: Never Assessed Sex and Gender Information Value Date Recorded Sex Assigned at Male 10/17/2023 2:13 PM EST Gender Identity Male 10/17/2023 2:13 PM EST Sexual Orientation Lesbian or Gallo 10/17/2023 2: 13 PM EST documented as of this encounter Miscellaneous Notes * Telephone Encounter - Ely Raymond MSW - 11/03/2019 10:00 AM EST Received copy of release of information signed by pt for contact with [facility]. HECTOR Castillo, [facility] inquiring about available cancer support groups in this area on pt's behalf. Informed her there is no local cancer support group in this area and she was going to relay that information to pt. documented in this encounter Plan of Treatment Not on file documented as of this encounter Visit Diagnoses Not on filedocumented in this encounter Care Teams Medication Reconciliation Technician Relationship Specialty Start Date End Date Unknown None PCP - General 07/02/19 08/11/20 documented as of this encounter
--- OUTSIDE RECORDS SUMMARY | 2024-11-24 13:56 | XMS_ITS | Encounter Summary ---
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 Never 09/08/2024 [facility] Utilities Answer Date Recorded In the [...] in the past 12 m [facility], were you homeless or living in a assisted (including now)? No 09/08/2024 Sex and Gender [...] Units, Intercatheter, ONCE, 1 dose, On Beata 09/24/24 at 1315, After flushing dual lumen catheter with Sodium Chloride 0.9%, instill heparin 1,000 units/mL to length of catheter, credit collections manager, Routine Given 09/24/2024 10:40 AM EDT 3,800 Units sodium chloride 0.9 % (flush) (BD PosiFlush Normal Saline 0.9) flush 20 mL 20 mL, Intercatheter, ONCE, 1 dose, On Beata 09/24/24 at 1315, Routine Given 09/24/2024 10:40 AM EDT 20 mLs documented in this encounter Care Teams Hoof Trimmer Relationship Specialty Start Date End Date Laura Stephenson, ADMISSIONS DEAN [address] [place] [address] PCP - General Family Medicine 09/14/24 documented as of this encounter
--- OUTSIDE RECORDS SUMMARY | 2024-11-24 13:56 | XMS_ITS | Encounter Summary ---
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 Tom Welch MD [facility] DR HEMATOLOGY [place] [address] [facility] [place] [address] Referral ID Status Reason Start Date Expiration Date V isits Requested Visits Authorized [id number] Authorized 09/08/2024 09/08/2025 99 103 Encounter Details Date Type Department Care Team (Latest Contact Info) Description 10/15/2024 10:06 AM EST - 10/15/2024 11:59 PM [facility] Hospital Encounter [place] [address] Hormone resistant prostate cancer; Malignant [...] from your doctor or pharmacy? Never 09/08/2024 [facility] Utilities Answer Date Recorded In [...] the past [address] [facility], were you homeless or living in a nursing home (including now)? No 09/08/2024 Sex and [...] Progress Notes * Madeleine Méndez RN - 10/15/2024 4:31 PM EST Patient came in for line care and dressing change. Red Draw line no blood return, flushed easily. Contacted Dr. Gomez, Alteplase order received Alteplase instilled with good effect Both lines with good draw and flush. 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 Malignant neoplasm of prostate documented in this encounter Administered Medications Inactive Administered Medications - up to 3 most recent administrations Medication Order MAR Action Action Date Dose Rate Site alteplase (Cathflo) 2 mg injection 1 dose, Starting on Beata 10/15/24 at 1101, Until Beata 10/15/24 at 1100, ALMA HERBERT: cabinet override alteplase (Cathflo) injection 2 mg 2 mg, INTRA-CATHETER, ONCE, 1 dose, On Beata 10/15/24 at 1115, Instill into occluded lumen as directed., Routine Given 10/15/2024 11:00 AM EST 2 mg heparin (porcine) (1,000 units/mL) injection 4,000 Units 4,000 Units, Intercatheter, ONCE, 1 dose, On Beata 10/15/24 at 1115, After flushing dual lumen catheter with Sodium Chloride 0.9%, instill heparin 1,000 units/mL to length of catheter, credit administrator, Routine Given 10/15/2024 12:20 PM EST 3,800 Units sodium chloride 0.9 % (flush) (BD PosiFlush Normal Saline 0.9) flush 20 mL 20 mL, Intercatheter, ONCE, 1 dose, On Beata 10/15/24 at 1115, Routine Given 10/15/2024 12:25 PM EST 20 mLs documented in this encounter Care Teams Headhunter Relationship Specialty Start Date End Date Laura Stephenson, CHIEF EXECUTIVE OR MANAGING DIRECTOR [address] [place] [address] PCP - General Family Medicine 09/14/24 documented as of this encounter
--- OUTSIDE RECORDS SUMMARY | 2024-11-24 13:56 | XMS_ITS | Encounter Summary ---
Author Organization [facility] [place] [address] Care Team Providers Care Bucket Pusher Name Role Phone Laura Stephenson APRN Primary Care Provider [phone] Encounter Details Date Type Department Care Team (Late st Contact Info) Description 09/10/2024 Notes Only [place]ology [place] [phone] Letha Torres, RN Social History Tobacco Use Types Packs/Day [...] from your doctor or pharmacy? Never 09/08/2024 [facility] Utilities Answer Date Recorded In the past 12 months has [employer], [employer], oil, or water [employer] threatened to shut off services in your [...] any time in the past 12 m [facility], were you homeless or living in a residential (including now)? No 09/08/2024 Sex and Gender Information Value Date Recorded Sex Assigned at Male 10/17/2023 2:13 PM EST Gender Identity Male 10/17/2023 2:13 PM EST Sexual Orientation Lesbian or Gallo 10/17/2023 2: 13 PM EST documented as of this encounter Progress Notes * Letha Torres RN - 09/10/2024 12:34 PM EDT Provenge update 340 B number provided from Pharmacy and placed on enrollment form Enrollment form and Consent scanned to patient's chart. Staff message sent to [employer] concerning plan for 09/21 start. documented in this encounter Plan of Treatment Not on file documented as of this encounter Visit Diagnoses Not on filedocumented in this encounter Care Teams Bucket Pusher Relationship Specialty Start Date End Date Laura Stephenson, ELEMENTARY READING [place] [address] PCP - General Family Medicine 02/04/23 09/13/24 documented as of this encounter
--- OUTSIDE RECORDS SUMMARY | 2024-11-24 13:56 | XMS_ITS | Encounter Summary ---
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 Tom Welch MD [facility] DR HEMATOLOGY [place] [address] [facility] [place] [address] Referral ID Status Reason Start Date Expiration Date V isits Requested Visits Authorized [id number] Authorized 09/08/2024 09/08/2025 99 103 Encounter Details Date Type Department Care Team (Latest Contact Info) Description 10/08/2024 8:03 AM EST - 10/08/2024 11:59 PM [facility] Hospital Encounter [place] [address] Malignant neoplasm of prostate metastatic to bone; Hormone resistant prostate cancer Discharge Disposition: Home Social History Tobacco Use [...] from your doctor or pharmacy? Never 09/08/2024 [facility] Utilities Answer Date Recorded In [...] any time in the past 12 m [facility], were you homeless or living in a residential (including now)? No 09/08/2024 Sex and Gender Information Value Date Recorded Sex Assigned at Male 10/17/2023 2:13 PM EST Gender Identity Male 10/17/2023 2:13 PM EST Sexual Orientation Lesbian or Gallo 10/17/2023 2: 13 PM EST documented as of this encounter Last Filed Vital Signs Vital Sign Reading Time Taken Comments Blood Pressure 127/67 10/08/2024 11:11 AM EST Pulse 72 10/08/2024 11:11 AM EST Temperature 36.8 ??C (98.2 ??F) 10/08/2024 11:[address] Respiratory Rate 18 10/08/2024 11:11 AM EST Oxygen Saturation 98% 10/08/2024 11:11 AM EST Inhaled Oxygen Concentration - - [...] Progress Notes * Nataly Coe RN - 10/08/2024 9:30 AM EST PROVENGE INFUSION PROGRESS NOTE Mr. Chris presented to the Blood Donor Program today for Provenge infusion number 1 for prostate cancer with mets to bone. Product Disposition Form received from [employer]: Yes Product Disposition Form indicates Provenge is approved for infusion: Yes Provenge Lot Number: [id number] Product Expiration Date and Time: 10/08/241144 Patient government issued picture ID EXACTLY MATCHES name and date of on product label: Yes Verification on receipt by: Yes Allergies: Latex and Penicillins Sipleucel-T (PROVENGE) 50 million cells Patient ID, drug and dose verified at bedside prior to starting the infusion by Nataly Coe RN and Denise Brenner RN. Infusion start time: 915 Infusion end time: 1031 Post infusion: Reactions: (description, time, intervention, and effectiveness) none. Reactions reported to [employer]: [X] N/A Mr. Chris was observed for 30 minutes post infusion. Post--transfusion education was provided prior to discharge. documented in this encounter Plan of Treatment Scheduled Orders Name Type Priority Associated Diagnoses Orde r Schedule CBC (with Diff) Lab Routine Malignant neoplasm of prostate metastatic to bone 1 Occurrences starting 10/08/2024 until 10/08/2024 PSA (Ultrasensitive) Lab Routine Malignant neoplasm of prostate metastatic to bone 1 Occurrences starting 10/08/2024 until 10/08/2024 Comprehensive metabolic panel Lab Routine Malignant neoplasm of prostate metastatic to bone 1 Occurrences starting 10/08/2024 until 10/08/2024 Testosterone, total Lab Routine Malignant neoplasm of prostate metastatic to bone 1 Occurrences starting 10/08/2024 until 10/08/2024 documented as of this encounter Visit Diagnoses Diagnosis Malignant neoplasm of prostate metastatic to bone Malignant neoplasm of prostate Hormone resistant prostate cancer documented in this encounter Administered Medications Inactive Administered Medications - up to 3 most recent administrations Medication Order MAR Action Action Date Dose Rate Site acetaminophen (Tylenol) 325 mg tablet 1 dose, Starting on Beata 10/08/24 at 0833, Until Beata 10/08/24 at 0837, Nataly Coe.: cabinet override acetaminophen (Tylenol) tablet 650 mg 650 mg, Oral, ONCE, 1 dose, On Beata 10/08/24 at 0900, To be given 30 minutes prior to infusion. Maximum dose of acetaminophen is 4,000 mg from all sources in 24 hours. When ordered for pain, acetaminophen should be given even when other ordered pain medications are indicated., Routine Given 10/08/2024 8:37 AM EST 650 mg diphenhydrAMINE (Benadryl) 25 mg capsule 1 dose, Starting on Beata 10/08/24 at 0833, Until Beata 10/08/24 at 0837, Nataly Coe.: cabinet override diphenhydrAMINE (Benadryl) capsule 25 mg 25 mg, Oral, ONCE, 1 dose, On Beata 10/08/24 at 0900, To be given 30 minutes prior to infusion., Routine Given 10/08/2024 8:37 AM EST 25 mg heparin (porcine) (1,000 units/mL) injection 4,000 Units 4,000 Units, Intercatheter, ONCE, 1 dose, On Beata 10/08/24 at 0900, After flushing dual lumen catheter with Sodium Chloride 0.9%, instill heparin 1,000 units/mL to length of catheter, travel registered nurse nicu, Routine Given 10/08/2024 11:00 AM EST 3,800 Units sipuleucel-T (Provenge) 50 million cell in lactated ringers 250 mL infusion 50 Million Cells, Intravenous, ONCE, 1 dose, On Beata 10/08/24 at 0930, Administer over 60 Minutes, Give pre-medications 30 minutes prior to infusion. Administer contents of bag over 60 minutes. Observe patients for 30 minutes after the infusion. Observe universal precautions when handling sipuleucel-T and leukapheresis material. New Bag 10/08/2024 9:16 AM EST 50 Million Cells 250 mL/hr sodium chloride 0.9 % (flush) (BD PosiFlush Normal Saline 0.9) flush 20 mL 20 mL, Intercatheter, ONCE, 1 dose, On Beata 10/08/24 at 0900, Routine Given 10/08/2024 8:45 AM EST 20 mLs Central Line sodium chloride 0.9% infusion 100 mL, Intravenous, ONCE, 1 dose, On Beata 10/08/24 at 1030, When the product bag is empty, close the roller clamp, un-spike the product bag and spike the 100 mL bag of 0.9% normal saline and open the roller clamp. Infuse at least 50 mL to ensure all Provenge product is flushed through the line. New Bag 10/08/2024 10:20 AM EST 100 mLs 250 mL/hr documented in this encounter Care Teams Item Processor Relationship Specialty Start Date End Date Laura Stephenson APRN [facility] [place] [address] [place] [address] PCP - General Family Medicine 09/14/24 documented as of this encounter
--- OUTSIDE RECORDS SUMMARY | 2024-11-24 13:56 | XMS_ITS | Encounter Summary ---
Author Organization [facility] [place] [address] Care Team Providers Care Assembler Surgical Garment Name Role Phone Laura Stephenson APRN Primary Care Provider [phone] Encounter Details Date Type Department Care Team (Latest Contact Info) Description 10/01/2024 Travel Social History Tobacco Use Types Packs/Day [...] from your doctor or pharmacy? Never 09/08/2024 [facility] Utilities Answer Date Recorded In the [...] on filedocumented in this encounter Care Teams Assembler Surgical Garment Relationship Specialty Start Date End Date Laura Stephenson, JALEN [place] [address] PCP - General Family Medicine 09/14/24 documented as of this encounter
--- OUTSIDE RECORDS SUMMARY | 2024-11-24 13:56 | XMS_ITS | Encounter Summary ---
[place] [address] Care Team Providers Care Circular Saw Filer Name Role Phone Laura Stephenson APRN Primary Care Provider [phone] Reason for Referral * Consultation (Routine) - Closed Specialty Diagnoses / Procedures Referred By Shaniqua stewart Referred To Contact Neurology Diagnoses Hemiplegia of dominant side, late effect of cerebrovascular disease Right sided weakness Spasticity Laura Stephenson APRN [address] [place] [address] [facility] [address] [place] [id number] Referral ID Status Reason Start Date Expiration Date V isits Requested Visits Authorized [id number] Closed Consult, Test & Treat PCP Updated and/or Approved 02/04/2023 02/04/2024 12 12 Encounter Details Date Type Department Care Team (Latest Contact Info) Description 02/04/2023 Transcribe Orders eDH Incoming Referrals [phone] Laura Stephenson APRN [address] [place], [place] [id number] Hemiplegia of dominant side, late effect of cerebrovascular disease; Right sided weakness; Spasticity Social History Tobacco Use Types Packs/Day Years [...] Associated Diagnoses Orde r Schedule Referral to Neurology Outpatient Referral Routine Hemiplegia of dominant side, late effect of cerebrovascular disease Right sided weakness Spasticity Ordered: 02/04/2023 documented as of this encounter Visit Diagnoses Diagnosis Hemiplegia of dominant side, late effect of cerebrovascular disease Hemiplegia affecting dominant side, late effect of cerebrovascular disease Right sided weakness Muscle weakness (generalized) Spasticity Abnormal involuntary movements documented in this encounter Care Teams Circular Saw Filer Relationship Specialty Start Date End Date Laura Stephenson APRN [address] [facility] [place] [address] PCP - General Family Medicine 02/04/23 09/13/24 documented as of this encounter
--- OUTSIDE RECORDS SUMMARY | 2024-11-24 13:56 | XMS_ITS | Encounter Summary ---
[facility] [place] [address] Care Team Providers Care Milking System Installer Name Role Phone Sachin, Laura Aguilar APRN Primary Care Provider [phone] Reason for Referral * Diagnostic Test (Routine) - Closed Specialty Diagnoses / Procedures Referred By Contac t Referred To Contact Radiology Diagnoses Malignant neoplasm of prostate metastatic to bone Procedures IR Line or Tube Removal in Recovery Room Tom Welch MD [facility] [place] [address] [place] [address] Referral ID Status Reason Start Date Expiration Date V isits Requested Visits Authorized [id number] Closed Specialty Service Requested 09/24/2024 03/25/2026 1 1 Reason for Visit * Reason Onset Date Comments Medical Care Coordination 09/14/2024 Encounter Details Date Type Department Care Team (Late st Contact Info) Description 09/14/2024 Telephone Hematology [place] [address] Poppy Rosenthal RN INFUSION ROOM Medical Care [...] from your doctor or pharmacy? Never 09/08/2024 [facility] Utilities Answer Date Recorded In the [...] time in the past 12 m [facility], were you homeless or living in a care home (including now)? No 09/08/2024 Sex and Gender Information Value Date Recorded Sex Assigned at Male 10/17/2023 2:13 PM EST Gender Identity Male 10/17/2023 2:13 PM EST Sexual Orientation Lesbian or Gallo 10/17/2023 2: 13 PM EST documented as of this encounter Miscellaneous Notes * Telephone Encounter - Poppy Rosenthal RN - 09/14/2024 8:49 AM EDT Provenge Coordination See earlier notes. Application submitted along with office note and patient demographics/insurance information. Copy of application emailed to [email or web address] Insurance review received from Nikki [email or web address] Coverage: The provider is in network. PROVENGE?? is subject to a 20% coinsurance and its administration is subject to a $45.00 copay until the $7,550.00 out of pocket maximum ($2,419.93 met) is met.Once the out of pocket maximum is met, coverage for PROVENGE?? is up to 100% of the allowable amount. Please let this gentleman know that his remaining out of pocket balance for PROVENGE?? without independent financial assistance $5,130.07. Urgent PA request sent to Yury via email and staff msg. Funds: [facility] Copay relief- closed; The Assistance Fund- waitlist only, CancerCare- closed, Good Fund- closed; [employer]- closed 09/15 Spoke w/ Osman at [facility] ([phone]) - prostate cancer fund closed, Provenge is a covered med/procedure once the fund opens, pt put on wait list and email will be sent to this RN and pt when fund opens Central line needed: yes; already placed Flushes at [facility] arranged and orders (flush once a week w/ cc NSS and instill 1000u/ml heparin to length of catheter, credit charge authorizer) in eDH - Confirmed that NCC in [facility], [facility] (spoke macario Ramirez) and [facility] in [facility] were unable to flush dialysis cath 09/17 Flushes arranged with Madeleine at [facility] , 09/17 at 1030 and each thereafter HAYDEE Emanuel contacted to help with assistance with transportation and copay issue 09/21 Notified by Yury that PA was obtained. Jessica Giang, associate [facility] at [facility] notified. Spoke w/ pt who stated his adjusted monthly income $1551. Will request WIRE PHOTO OPERATOR speak w/ pt about NSA at. Encouraged pt to reach out to billing to discuss a payment plan. Per Nikki: His current OOP remaining is $4919.50. Pt updated. 09/22 Spoke w/ pt who stated he spoke w/ HAYDEE Benitez who told him to 'wait till the bills arrived then arrange for payment plan'. Encouraged pt to speak w/ billing prior to receiving first bill as his OOP for the remainder of the year is unchanged and he will receive bills for not only Provenge but also his appts, labs and CL placement. Pt verbalized understanding and requested that Provenge be scheduled. Call placed to Nikki ([phone]) to schedule provenge. Spoke w/Meghna who arranged schedule and leukopheresis day transportation Closest site for pt: [facility] ([address] [place] [address], [phone]) Apheresis Mon, 10/05 at 0800 Infusion ([facility]) Thurs,10/08 at 0830 Apheresis Mon, 10/19 at 0800 Infusion ([facility]) Thurs,10/22 at 0830 Apheresis Mon, 11/02 at 0800 Infusion ([facility]) Thurs,11/05 at 0830 Schedule reviewed w/pt who verbalized agreement. Copy sent via [facility]/mailed to pt. Signed consent in chart. Schedule, order, last office note, and pt ins and demographics faxed to [facility] ([phone]) and schedule emailed to Madeleine Méndez RN donor room. 09/24 Order for DL dialysis catheter removal (APULL) pended to provider for review and signature. 09/30 CBC faxed to [facility] ([phone]) Spoke w/ Nicole at [facility] who confirmed receipt of all needed information. Spoke w/ pt who confirmed he was w/o questions at this time. He will call clinic if he hasn't heardfrom Nikki regarding his ride to leukopheresis by noon on Saturday. documented in this encounter Plan of Treatment Not on file documented as of this encounter Results * IR Line or Tube Removal in Recovery Room (11/05/2024 2:00 PM EST) Anatomical Region Laterality Modality X-Ray Angiograph y Narrative 11/15/2024 5:34 PM EST Table formatting from the original result was not included. Images from the original result were not included. Interventional Radiology Procedure Note Procedure: Removal of tunneled central venous catheter. Indication: discontinue durable correction central venous access Pre-procedure: Informed consent for [...] prostate documented in this encounter Care Teams Milking System Installer Relationship Specialty Start Date End Date Laura Stephenson, GENETIC COUNSELOR [address] [place] [address] PCP - General Family Medicine 09/14/24 documented as of this encounter
--- OUTSIDE RECORDS SUMMARY | 2024-11-24 13:56 | XMS_ITS | Encounter Summary ---
Author Organization [facility] [place] [address] Care Team Providers Care Head Of Digital Name Role Phone Laura Stephenson APRN Primary Care Provider [phone] Encounter Details Date Type Department Care Team (Latest Contact Info) Description 10/15/2024 Travel Social History Tobacco Use Types Packs/Day [...] doctor or pharmacy? Never 09/08/2024 [facility] Utilities Answer Date Recorded In [...] time in the past 12 m [facility], were you homeless or living in [...] on filedocumented in this encounter Care Teams Head Of Digital Relationship Specialty Start Date End Date Laura Stephenson, JALEN Yari [facility] [place] [address] PCP - General Family Medicine 09/14/24 documented as of this encounter
--- OUTSIDE RECORDS SUMMARY | 2024-11-24 13:56 | XMS_ITS | Encounter Summary ---
Author Organization [facility] [place] [address] Care Team Providers Care Radiographer Cardiac Catheterization Name Role Phone Luara Stephenson APRN Primary Care Provider [phone] Encounter Details Date Type Department Care Team (Latest Contact Info) Description 10/08/2024 Travel Social History Tobacco Use Types Packs/Day [...] or pharmacy? Never 09/08/2024 [facility] Utilities Answer Date Recorded In the [...] on filedocumented in this encounter Care Teams Radiographer Cardiac Catheterization Relationship Specialty Start Date End Date Laura Stephenson, JALEN [place] [address] PCP - General Family Medicine 09/14/24 documented as of this encounter
--- OUTSIDE RECORDS SUMMARY | 2024-11-24 13:56 | XMS_ITS | Encounter Summary ---
[facility] [place] [address] Care Team Providers Care Temporary Receptionist Name Role Phone Silvia Orellana APRN Primary Care Provider [phone] Encounter Details Date Type Department Care Team (Late st Contact Info) Description 05/22/2016 1:30 PM EDT Office Visit Dermatology at [address] [phone] Mati Arce MD [address] [place] [address], [place] [address] Pruritus Social History Tobacco Use Types Packs/Day Years Used Date Smoking Tobacco: Never Assessed Sex and Gender Information Value Date Recorded Sex Assigned at Male 10/17/2023 2:13 PM EST Gender Identity Male 10/17/2023 2:13 PM EST Sexual Orientation Lesbian or Gallo 10/17/2023 2: 13 PM EST documented as of this encounter Progress Notes * Mati Arce MD - 05/22/2016 1:55 PM EDT Problem: Itching. Travis is a 56-year-old gentleman who states that in December while in [place] he developed a rash on his chest, especially of his arms and shoulders, and then eventually to his groin. He was told that this was ringworm and he was given Nizoral 2% cream to use, also Neosporin, triamcinolone cream, and for itching p.o. hydroxyzine 25 mg one p.o. t.i.d. While the rash has totally cleared, he continues now to have itching, usually on a nightly basis, occasionally waking him from his sleep, on the scrotum. He states that he showers roughly every three days or so. He did use Dove soap previously but was told to start using Dial soap. His medications include baclofen, amlodipine, lisinopril, and clopidogrel, all of which he has taken for at least two years. The patient denies any perianal or gluteal cleft rash/itching. Physical examination reveals a pleasant 56-year-old gentleman who appears very nervous and concerned about the very symptomatic itching that he has on an almost nightly basis on the scrotum. He has no dermatitis of the inner thighs or over the scrotum itself. He has no rash on the glans penis or the shaft of the penis. He has a few benign melanocytic nevi of his back, but otherwise examination of the head and the neck, the chest, the back, hands, arms, forearms, thighs, and calves is unrevealing for any areas of active dermatitis. Assessment and Plan: Pruritus, scrotal, without any cutaneous findings. a. Patient in the past was given hydroxyzine, and I recommend that he go back to taking this, one or two at bedtime, to help symptomatically control his itching. b. Recommend that he not use triamcinolone or Nizoral or any other topical cream to the affected area. c. Recommend that he go back to using milder soap, Dove or Ivory, and discontinue his Dial. d. I would like to see the patient back in another month to assess his progress. Could consider, while I do not see any convincing evidence today of red scrotum syndrome, could treat symptomatically with doxycycline for this diagnosis. COPY: Silvia Orellana A.P.R.N. documented in this encounter Plan of Treatment Not on file documented as of this encounter Visit Diagnoses Diagnosis Pruritus Unspecified pruritic disorder documented in this encounter Care Teams Temporary Receptionist Relationship Specialty Start Date End Date Silvia Orellana APRN PCP - General Family Medicine 05/22/16 07/01/19 documented as of this encounter
--- OUTSIDE RECORDS SUMMARY | 2024-11-24 13:56 | XMS_ITS | Encounter Summary ---
Author Organization [facility] [place] [address] Care Team Providers Care [facility] Home [facility] Name Role Phone Mima Null DO Primary Care Provider [phone] Encounter Details Date Type Department Care Team (Late st Contact Info) Description 11/08/2020 Orders Only Hematology/Oncology at [address] [id number] Tom Welch MD [facility] [address] [place] [address] Prostate cancer metastatic to intrapelvic lymph node [...] node documented in this encounter Care Teams Lvn Home Health Relationship Specialty Start Date End Date Mima Null DO [address] [place], [place] [address] PCP - General Family Medicine 08/12/20 02/03/23 documented as of this encounter
--- OUTSIDE RECORDS SUMMARY | 2024-11-24 13:56 | XMS_ITS | Encounter Summary ---
Author Organization [facility] [place] [address] Care Team Providers Care Sheetmetal Trades Worker Name Role Phone Laura Stephenson APRN Primary Care Provider [phone] Encounter Details Date Type Department Care Team (Latest Contact Info) Description 09/08/2024 Travel Social History Tobacco Use Types Packs/Day Years Used Date Smoking Tobacco: Never Smokeless Tobacco: Never [id number] Health Literacy Answer Date Recor ded How often do you need to hav e someone help you when you read instructions, pamphlets, or other written material from your doctor or pharmacy? Never 09/08/2024 [facility] Utilities Answer Date Recorded In [...] on filedocumented in this encounter Care Teams Sheetmetal Trades Worker Relationship Specialty Start Date End Date Laura Stephenson, [place] [address] [place] [address] PCP - General Family Medicine 02/04/23 09/13/24 documented as of this encounter
--- OUTSIDE RECORDS SUMMARY | 2024-11-24 13:57 | XMS_ITS | Encounter Summary ---
Author Organization [facility] [place] [address] Care Team Providers Care Verify Rep Name Role Phone Unknown Primary Care Provider Unavailabl e Encounter Details Date Type Department Care Team (Late st Contact Info) Description 04/05/2014 [place] [address] Dominic Alas MD [facility] [place] [address] Social History Tobacco Use Types Packs/Day Years [...] FILM LIBRARY STORAGE ONLY CT HEAD Routine 04/05/2014 11:15 AM EDT documented in this encounter Results * Film Library- Storage only CT Head (04/05/2014 11:15 AM EDT) Anatomical Region Laterality Modality Head Other 04/05/2014 11:1 5 AM EDT Narrative 04/05/2014 11:33 AM EDT This is a Non-reportable exam Procedure Note 04/05/2014 This is a Non-reportable exam Dominic Alas MD [facility] FILM LIBRARY ORDERABLES documented in this encounter Visit Diagnoses Not on filedocumented in this encounter Care Teams Verify Rep Relationship Specialty Start Date End Date Unknown None PCP - General 04/05/14 05/21/16 documented as of this encounter
--- OUTSIDE RECORDS SUMMARY | 2024-11-24 13:57 | XMS_ITS | Continuity of Care Document ---
Author Organization [facility] Address [address] [place] [address] Care Team Providers Care General Ophthalmologist Name Role Phone FELIX CARMEN Primary Care Provider Assessment No assessment recorded. Plan of Treatment Reminders Order Date Submit Date Provider Last Modified By Organization Details Last Modified Time Details Appointments Nurse Visit 20 2023 10:50A M [facility] Nursing Staff Not available Not available Not available Follow Up 2024 03:10P M Felix Carmen Not available Not available Not available Lab None recorde d. Referral None recorde d. Procedures None recorde d. Surgeries None recorde d. Imaging None recorde d. Medication Orders None recorde d. Patient TargetsNo targets recorded. Patient InstructionsNo instructions recorded. Reason for Referral None Reported. 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 PRINCESS SAVAGE [address], [place], [address], [facility] 4 09:05:59 Hyperlip idemia 20390774 Active 2022 PRINCESS SAVAGE [address], [place], [address], [facility] 4 09:07:32 Spastici ty 047794615 Active 2021 d/t previous stroke PIPER wolfe, [facility] 4 16:39:03 Weakness of right upper limb Active 2021 PIPER wolfe, [facility] 4 16:38:58 Cerebrov ascular accident 630102182 Completed 201404/13/2015 PIPER wolfe, [facility] 4 16:38:49 Carcinom a of prostate 989687948 Active 2015 PIPER wolfe, [facility] 4 16:40:24 Acute bronchit is with bronchos pasm 08371132 Active 2023 PRINCESS SAVAGE [address], [place], [address], [facility] 4 09:02:06 Acute upper respirat ory infectio n 75755655 Active [address], [place], [address], [facility] 4 09:02:28 Essentia l hyperten ramya 11987170 Active [address], [place], [address], [facility] 4 09:02:46 Lower urinary tract symptoms 813753306 Active [address], [place], [address], [facility] 4 09:03:10 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 514785374 Active 2023 PRINCESS SAVAGE [address], [place], [address], [facility] 4 09:03:36 Mixed anxiety and depressi ve disorder 612370790 Active [address], [place], [address], [facility] 4 09:04:30 Type 2 diabetes mellitus without complica tion 052352113 Active [address], [place], [address], [facility] 4 09:05:08 Dyslipid emia 011324494 Active [address], [place], [address], [facility] 4 09:07:21 History of cerebrov ascular accident 110435691 Active [address], [place], [address], [facility] 4 09:07:40 Insomnia 632386037 Active [address], [place], [address], [facility] 4 09:10:19 Leukopen ia 44345594 Active [address], [place], [address], [facility] 4 09:10:21 Disorder of bone 13805026 Active [address], [place], [address], [facility]. 4 15:08:51 Pain of right knee joint 02130024331 4100 Active [address], [place], [address], [facility] 4 15:51:27 Constipa tion 88484484 Active 2023 PRINCESS SAVAGE [address], [place], [address], [facility] 4 09:50:28 Pruritic rash 68359973 Active 2023 PRINCESS SAVAGE [address], [place], [address], [facility] 4 08:06:59 Problem Notes None recorded. Procedures Surgical History Date Name Laterality Status Provider Name and Address Organization Details Recorded Time 4 Cerumen Removal cancelled Kendra Turner RN [facility] 11/20/2024 11:19:08 Cerumen Removal completed Kendra Turner RN [facility] 11/17/2024 11:57:48 Imaging Results None recorded. Procedure Notes None recorded. Medical Equipment None Reported. Allergies Allergen ID Allergen Name Allergen Category Reaction Reaction Severity Criticality Documentation Date Start Date Code Code System Note Provider Name and Address Organization Details Recorded Time 13920 latex environme nt,medica tion rash mild Not available 12/05/2023 23355 91 RxNorm PIPER BLUNT [facility] 16:34:49 67871 Effexor medicatio n other mild Not available 12/05/2023 94074 2 RxNorm didn 't feel good while takin g it PIPER BLUNT [facility] 16:35:19 86340 Medicinal product containin g penicilli n and acting as antibacte rial agent (product) medicatio n Not available Not available Not available 11/10/2024 99238 05 SNOMED JYOTI BARTH MA [facility] 11:21:18 Medications Name Sig Start Date Stop Date Status Note LastModified by Organization Details LastModified Time celecoxib 200 mg capsule Take 1 capsule every day by oral route as needed. 2023 active Not Available Not Available Not Avai lable Vitamin C 500 mg tablet active Not Available Not Available Not Available benzonata te 200 mg capsule Take 1 capsule 3 times a day by oral route for 7 days. 05/12 completed Not Available Not Available Not Available prednison e 5 mg tablet Take 1 tablet every day by oral route. 07/01 completed RX ONCOLOGY Not Available Not Available Not Available Debrox 6.5 % ear drops Instill 5 drops twice a day by otic route as directed for 5 days. 2023 active Not Available Not Available Not Avai lable clopidogr el 75 mg tablet TAKE ONE TABLET BY MOUTH EVERY DAY 2023 active Not Available Not Available Not Avai lable amlodipin e 5 mg tablet Take 1 tablet by mouth once a day 2023 active Not Available Not Available Not Avai lable IBU 600 mg tablet Q6H PRN active Not Available Not Available No t Available amlodipin e 10 mg tablet Take 1 tablet by mouth once a day 01/30 completed Not Available Not Available Not Available docusate sodium 100 mg capsule Take 1 capsule twice a day by oral route as needed for 14 days, for constipa tion.. 2023 active Not Available Not Available Not Avai lable sertralin e 25 mg tablet Take 1 tablet by mouth once a day for depressi on and anxiety. Combine with 50 mg pill for a total of 75 mg daily. 2023 active Not Available Not Available Not Avai lable polyethyl manas glycol 3350 17 gram/dose oral powder Take 17 g every day by oral route as directed for 30 days, for constipa tion. 2023 active Not Available Not Available Not Avai lable albuterol sulfate HFA 90 mcg/actua tion aerosol inhaler Inhale 2 puffs every 4 hours by inhalati on route for 14 days. 05/12 completed Not Available Not Available Not Available lisinopri l 40 mg tablet TAKE ONE TABLET BY MOUTH EVERY DAY 2023 active Not Available Not Available Not Avai lable sertralin e 50 mg tablet TAKE ONE TABLET BY MOUTH EVERY DAY WITH 25MG TABLET 2023 active Not Available Not Available Not Avai lable diazepam 5 mg tablet TID 10/14 completed Not Available Not Available Not Available melatonin 12/13 completed Not Available Not Available Not Available Lupron Depot active RX ONCOLOGY Not Available Not Available Not Available tamsulosi n active RX ONCOLOGY Not Available Not Available Not Available magnesium oxide active Not Available Not Available Not Available amiodaron e 12/12 completed Not Available Not Available Not Available baclofen 05/12 completed Not Available Not Available Not Available clopidogr el 12/13 completed Not Available Not Available Not Available amlodipin e 12/13 completed Not Available Not Available Not Available prednison e 12/13 completed Not Available Not Available Not Available lisinopri l 12/13 completed Not Available Not Available Not Available abiratero ne 250 mg tablet Take 4 tablets every day by oral route. 07/01 completed RX ONCOLOGY Not Available Not Available Not Available Zytiga 12/13 completed Not Available Not Available Not Available melatonin 10 mg tablet Take 1 tablet by mouth at bedtime as needed 05/12 completed Not Available Not Available Not Available enzalutam manuel 40 mg capsule Take 4 capsules every day by oral route. active Not Available Not Available No t Available Vitals None Recorded Social History Question Answer Notes LastModified by Organizat ion Details LastModified Time Tobacco Sm[facility] Status [facility] 16:30:15 What Was The Date Of Your Most Recent Tobacco Screening? 12/05/2023 Information not available 12/05/2023 Has Tobacco Cessation Counseling Been Provided? No Information not available 12/05/2023 Do You Or Have You Ever Used Any Other Forms Of Tobacco Or Nicotine? No Information not available 12/05/2023 Sex: Unknown Functional Status None recorded. Mental Status None recorded. Family History Nothing Reported. Medical History No medical history recorded. Immunizations Vaccine Type Date Status Note Provider Nam e and Address Organization Details Recorded Time COVID-19, mRNA, LNP-S, bivalent, PF, 50 mcg/0.5 mL or 25mcg/0.25 mL dose 1 completed Cherelle Segura RN null, [facility] 12/09/2023 09:40:25 COVID-19, mRNA, LNP-S, bivalent, PF, 50 mcg/0.5 mL or 25mcg/0.25 mL dose 1 completed Cherelle Segura RN null, [facility] 12/09/2023 09:40:28 COVID-19, mRNA, LNP-S, bivalent, PF, 50 mcg/0.5 mL or 25mcg/0.25 mL dose 1 completed Cherelle Segura RN null, [facility] 12/09/2023 09:40:34 SARS-COV-2 (COVID-19) vaccine, UNSPECIFIED 2 completed Cherelle Segura RN null, [facility] 12/09/2023 09:40:41 COVID-19 mRNA, bivalent, original/Omicron BA.1, Non-US Vaccine Product, Planex 2 completed Cherelle Segura RN null, [facility] 12/09/2023 09:40:55 pneumococcal, unspecified formulation 1 completed Cheerlle Segura RN null, [facility] 12/09/2023 09:41:13 Respiratory syncytial virus (RSV) vaccine, unspecified 3 completed Cherelle Segura RN null, [facility] 12/09/2023 09:41:21 Tdap 2 completed Cherelle Segura RN null, [facility] 12/09/2023 09:41:31 zoster, unspecified formulation 8 completed Cherelle Segura RN null, [facility] 12/09/2023 09:41:41 zoster, unspecified formulation 9 completed Cherelle Segura RN null, [facility] 12/09/2023 09:41:45 influenza, unspecified formulation 3 completed Cherelle Segura RN null, [facility] 12/09/2023 09:42:02 Influenza, split virus, quadrivalent, PF 3 completed Not Available [facility] 12/13/2023 05:31:47 COVID-19, mRNA, LNP-S, PF, 30 mcg/0.3 mL dose 4 completed Kendra Turner RN null, [facility] 02/07/2024 08:05:44 COVID-19, mRNA, LNP-S, PF, jinny-sucrose, 30 mcg/0.3 mL 4 completed Neelam Denson MA null, [facility] 09/03/2024 09:19:09 Past Encounters Encounter ID Performer Location Encounter Start Date Encounter Closed Date Diagnosis/Indication Diagnosis SNOMED-CT Code Diagnosis ICD10 Code [id number] PRINCESS SAVAGE [facility] [address] [place] [address] 11/10/2024 11:03:32 11/10/2024 12:24:09 Mixed anxiety and depressive disorder 997411704 F41.8 Constipation 61989241 K5 9.00 Carcinoma of prostate 25 6358596 C61 Essential hypertension 50606892 I10 Lower urin joie tract symptoms 940008510 R39.9 History of cerebrovascular accident 950478288 Z86.73 Dyslipidemia 334125126 E 78.5 Osteopenia caused by drug 804331567 M85.80 Weakness o f right upper limb 3151261301 36808 M62.81 Type 2 richard betes mellitus without complication 841312654 E11.9 Insomnia 154267206 G47.0 0 Leukopenia 07984158 D72. 819 Impacted c erumen in right ear 9677083851 384152 H61.21 [id number] Kendra Turner RN [facility] [address] [place] [address] 11/17/2024 11:24:41 11/17/2024 11:56:17 Health Concerns Section Related Observation LastModified by Organization Detai ls LastModified Time None Recorded Concern Status LastModified by Organization Details LastModified Time None Recorded Payers Encounter Date Sequence Insurance Name Policy Number Policy Wilkinson Covered Member ID Wilkinson Member ID Guarantor Name 11/17/2024 1 [facility] (MEDICARE REPLACEMENT/A DVANTAGE - PPO) [id number] Hernandez Chris [id number] Hernandez Chris
--- OUTSIDE RECORDS SUMMARY | 2024-11-24 13:57 | XMS_ITS | Continuity of Care Document ---
Author Organization [facility] [place] [place] [address] Care Team Providers Care Certified Medical Asst Name Role Phone FELIX CARMEN Primary Care Provider [phone] Assessment No assessment recorded. Plan of Treatment Reminders Order Date Submit Date Provider Last Modified By Organization Details Last Modified Time Details Appointments Nurse Visit 20 2023 10:50A M [facility] Nursing Staff Not available Not available Not available Follow Up 2024 03:10P M Felix Carmen Not available Not available Not available Lab hemoglob in A1C, fingerst ick 2023 [email or web address] [facility], [address], [place], [address], 11/10/2024 16:16:55 Referral None recorded . Procedures None recorded . Surgeries None recorded . Imaging None recorded . Medication Orders Debrox 6.5 % ear drops 2023 [facility], [address] [place], [address], 11/10/2024 11:50:34 sertrali ne 25 mg tablet 2023 [facility], [address] [place], [address], 11/10/2024 11:50:34 Patient TargetsNo targets recorded. Patient Instructions Encounter Date Encounter Id Patient Instructions Last Modified By Organization Details Last Modified Time 11/10/2024 [id number] constipation: care instructions [email or web address] Not available 11/10/2024 11:50:31 6 month routine follow up. 5-10 day nursing visit follow up for ear irrigation. Debrox prescribed - this may OR may not be covered by your insurance. You can find this medication over the counter. I recommend using the drops for 5-7 days before your nursing visit - the drops will soften the ear wax and make it easier to clean out. SERTRALINE 25 mg dose refilled (to combine with your 50 mg dose, for a total of 75 mg daily). Please call with questions or concerns. Not available 11/10/2024 11:52:54 Reason for Referral None Reported. Results Created Date Observation Date Name Description Value Unit Range Abnormal Flag Note LastModifiedBy Organization Detail LastModifiedTime 11/10/20 24 11/10/2024 hemog lobin A1C, finge rstic k hemoglobin A1C 6.0 % <5.7 colle cted in offic e Not Available [facility] [address], [place], [address], 11/10/2024 13:31:22 Result Notes None recorded. Problems Name Problem SNOMED Code Status Onset Date Resolution Date Notes Provider Name and Address Organization Details Recorded Time Impacted cerumen in right ear 25644490612 00996 Active 2023 PRINCESS SAVAGE [address], [place], [address], [facility] 4 11:43:33 Chondrom alacia 54017162 Active [address] right [address], [place], [address], [facility] 4 09:05:59 Hyperlip idemia 41105334 Active [address], [place], [address] , [facility] 4 09:07:32 Spastici ty 775283695 Active 2021 d/t previous stroke PIPER wolfe, [facility]. 4 16:39:03 Weakness of right upper limb Active 2021 PIPER wolfe, [facility] 4 16:38:58 Cerebrov ascular accident 619367409 Completed 201404/13/2015 PIPER wolfe, [facility] 4 16:38:49 Carcinom a of prostate 184336466 Active 2015 PIPER wolfe, [facility] 4 16:40:24 Acute bronchit is with bronchos pasm 54354135 Active [address], [place], [address], [facility] 4 09:02:06 Acute upper respirat ory infectio n 84653230 Active [address], [place], [address], [facility] 4 09:02:28 Essentia l hyperten ramya 51363717 Active [address], [place], [address], [facility] 4 09:02:46 Lower urinary tract symptoms 324967683 Active [address], [place], [address], [facility] 4 09:03:10 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 485798593 Active [address], [place], [address], [facility] 4 09:03:36 Mixed anxiety and depressi ve disorder 472711086 Active [address], [place], [address], [facility] 4 09:04:30 Type 2 diabetes mellitus without complica tion 295737789 Active [address], [place], [address], [facility] 4 09:05:08 Dyslipid emia 039736735 Active [address], [place], [address], [facility] 4 09:07:21 History of cerebrov ascular accident 323807064 Active [address], [place], [address], [facility] 4 09:07:40 Insomnia 379800990 Active [address], [place], [address], [facility] 4 09:10:19 Leukopen ia 89624624 Active [address], [place], [address], [facility] 4 09:10:21 Disorder of bone 74693821 Active [address], [place], [address], [facility] 4 15:08:51 Pain of right knee joint 13601243726 4100 Active [address], [place], [address], [facility] 4 15:51:27 Constipa tion 89660572 Active 2023 PRINCESS SAVAGE [address], [place], [address] , [facility] 4 09:50:28 Pruritic rash 48724688 Active 2023 PRINCESS SAVAGE [address], [place], [address] , [facility] 4 08:06:59 Problem Notes None recorded. Procedures Surgical History Date Name Laterality Status Provider Name and Address Organization Details Recorded Time 4 Cerumen Removal cancelled Kendra Turner RN [facility] 11/20/2024 11:19:08 4 Cerumen Removal completed Kendra Turner RN [facility] 11/17/2024 11:57:48 Imaging Results None recorded. Procedure Notes None recorded. Medical Equipment None Reported. Allergies Allergen ID Allergen Name Allergen Category Reaction Reaction Severity Criticality Documentation Date Start Date Code Code System Note Provider Name and Address Organization Details Recorded Time 88073 latex environme nt,medica tion rash mild Not available 12/05/2023 02932 91 RxNorm PIPERMarc BLUNT [facility] 16:34:49 62615 Effexor medicatio n other mild Not available 12/05/2023 09097 2 RxNorm didn 't feel good while takin g it PIPER BLUNT [facility] 16:35:19 52666 Medicinal product containin g penicilli n and acting as antibacte rial agent (product) medicatio n Not available Not available Not available 11/10/2024 23019 05 SNOMED JYOTI BARTH [facility] 11:21:18 Medications Name Sig Start Date Stop [...] Available Not Available No t Available Vitals Date Recorded Body height Body mass index (BMI) Body weight Body temperature Oxygen saturation Oxygen saturation in Arterial blood by Pulse oximetry Heart rate Systolic blood pressure Diastolic blood pressure Provider Name and Address Organization Details Last Updated DateTime 4 162.56 cm 23.9 kg/m2 04949.0 6 g 97.5 [degF] 98 % 98 % 67 /min 104 mm[Hg] 64 mm[Hg] JYOTI BARTH MA [facility] 4 11:20:42 Social History Question Answer Notes LastModified by Organizat ion Details LastModified Time Tobacco Smoking Status Never Smoker PIPER wolfe [facility] 12/05/2023 16:30:15 What Was The Date Of [...] mL or 25mcg/0.25 mL dose 1 completed DAVID Patterson, [facility] 12/09/2023 09:40:25 COVID-19, mRNA, LNP-S, bivalent, PF, 50 mcg/0.5 mL or 25mcg/0.25 mL dose 1 completed DAVID Patterson, [facility] 12/09/2023 09:40:28 COVID-19, mRNA, LNP-S, bivalent, PF, 50 mcg/0.5 mL or 25mcg/0.25 mL dose 1 completed DAVID Patterson, [facility] 12/09/2023 09:40:34 SARS-COV-2 (COVID-19) vaccine, UNSPECIFIED 2 completed DAVID Patterson, [facility] 12/09/2023 09:40:41 COVID-19 mRNA, bivalent, original/Omicron BA.1, Non-[place] Vaccine Product, HazelMail 2 completed DAVID Patterson, [facility] 12/09/2023 09:40:55 pneumococcal, unspecified formulation 1 completed DAVID Patterson, [facility] 12/09/2023 09:41:13 Respiratory syncytial virus (RSV) vaccine, unspecified 3 completed DAVID Patterson, [facility] 12/09/2023 09:41:21 Tdap 2 completed DAVID Patterson, [facility] 12/09/2023 09:41:31 zoster, unspecified formulation 8 completed Cherelle Segura RN null, [facility] 12/09/2023 09:41:41 zoster, unspecified formulation 9 completed Cherelle Segura RN null, [facility] 12/09/2023 09:41:45 influenza, unspecified formulation 3 completed Cherelle Segura RN null, [facility] 12/09/2023 09:42:02 Influenza, split virus, quadrivalent, PF 3 completed Not Available [facility] 12/13/2023 05:31:47 COVID-19, mRNA, LNP-S, PF, 30 mcg/0.3 mL dose 4 completed Kendra Turner RN null, [facility] 02/07/2024 08:05:44 COVID-19, mRNA, LNP-S, PF, jinny-sucrose, 30 mcg/0.3 mL 4 completed Neelam Denson MA null, [facility] 09/03/2024 09:19:09 Past Encounters Encounter ID Performer Location Encounter Start Date Encounter Closed Date Diagnosis/Indication Diagnosis SNOMED-CT Code Diagnosis ICD10 Code [id number] PRINCESS SAVAGE [address] [place] [address] 11/10/2024 11:03:32 11/10/2024 12:24:09 Mixed anxiety and depressive disorder 083697597 F41.8 Constipation 40091282 K5 9.00 Carcinoma of prostate 25 9408786 C61 Essential hypertension 79689797 I10 Lower urin joie tract symptoms 165227976 R39.9 History of cerebrovascular accident 542105110 Z86.73 Dyslipidemia 713158071 E 78.5 Osteopenia caused by drug 951288955 M85.80 Weakness o f right upper limb 3271009196 18661 M62.81 Type 2 richard betes mellitus without complication 075403432 E11.9 Insomnia 687717666 G47.0 0 Leukopenia 13317705 D72. 819 Impacted c erumen in right ear 8911569466 509705 H61.21 Health Concerns Section Related Observation LastModified by Organization Detai ls LastModified Time None Recorded Concern Status LastModified by Organization Details LastModified Time None Recorded Payers Encounter Date Sequence Insurance Name Policy Number Policy Wilkinson Covered Member ID Wilkinson Member ID Guarantor Name 11/10/2024 1 [facility] (MEDICARE REPLACEMENT/A DVANTAGE - PPO) [id number] Hernandez Aguilar Aries [id number] Hernandez B Aries Notes Date Note Type Note Provider Name and Address Organization Details Recorded Time 11/10/2024 text/html Travis presents to [facility] today for chronic care follow up, with a focus on mood and medication refills. .Medical history includes metastatic prostate cancer to bone, on Lupron, abiraterone, and prednisone; hypertension, HX of CVA on Plavix, depression with anxiety, prediabetes, and right-sided hemiparesis (R/T to CVA). [facility].Overal l feels good. Mood improved. Body pains improved. FELIX CARMEN, PRINCESS [address], [place], [address], [facility]. 11/15/2024 17:45:58
--- OUTSIDE RECORDS SUMMARY | 2024-11-24 13:57 | XMS_ITS | Continuity of Care Document ---
Author Organization [facility] Address [address] [place] [id number] Care Team Providers Care Senior Java Programmer Name Role Phone FELIX CARMEN APRN Primary Care Physician Encounter [facility] NBR [id number] Date(s): 05/08/23 - 12/12/[address] [address] [place] Encounter Diagnosis Other sequelae of cerebral infarction(Discharge Diagnosis) - 05/09/23 Cramp and spasm(Discharge Diagnosis) - 05/09/23 Other sequelae of cerebral infarction(Final) - Cramp and spasm(Final) - Discharge Disposition: Home-No Follow Up Attending Physician: Adriano Flores, PT, DPT Admitting Physician: MAIA LACEY, PhD, ROSEMARIE Stern Referring Physician: MAIA LACEY, PhD, ROSEMARIE Stern Functional Status 05/09/23 Prior ADL Status Independent Prior Mobility Status Independent Prior Instrumental ADL Level Independent Prior Cognitive-Communication Skills Ind ependent 05/08/23 Lives With Family Patient's Responsibilities Rehab Communi ty mobility, Personal ADL, Social participation Social History Social History Type Response Sex Unknown Patient Care team information Care Team Personnel Name: FELIX CARMEN APRN Position: No Access Member Role: Primary Care Physician Address: Address: [facility] [place] [address]-
--- OUTSIDE RECORDS SUMMARY | 2024-11-24 13:57 | XMS_ITS | Encounter Summary ---
Author Organization [facility] [place] [address] Care Team Providers Care Optical Store Manager Name Role Phone Unknown Primary Care Provider Unavailabl e Encounter Details Date Type Department Care Team (Late st Contact Info) Description 04/05/2014 4:09 PM EDT - 04/08/2014 12:42 PM EDT Hospital Encounter [address] [place] [address] Dominic Alas MD [facility] [place] [address] Kraig Julio MD [facility] [place] [address] Cerebral infarction Discharge Disposition: Swing Bed Social History Tobacco Use Types Packs/Day Years Used Date Smoking Tobacco: Never Assessed Sex and Gender Information Value Date Recorded Sex Assigned at Male 10/17/2023 2:13 PM EST Gender Identity Male 10/17/2023 2:13 PM EST Sexual Orientation Lesbian or Gallo 10/17/2023 2: 13 PM EST documented as of this encounter Last Filed Vital Signs Vital Sign Reading Time Taken Comments Blood Pressure 191/117 04/08/2014 10:00 AM EDT Pulse 73 04/08/2014 10:00 AM EDT Temperature 36.7 ??C (98.1 ??F) 04/08/2014 10:00 AM E DT Respiratory Rate 16 04/08/2014 10:00 AM EDT Oxygen Saturation 97% 04/08/2014 10:00 AM EDT Inhaled Oxygen Concentration - - Weight 69.4 kg (153 lb) 04/05/2014 4:41 PM EDT Height 162.6 cm (5' 4) 04/05/2014 4:41 PM EDT Body Mass Index 26.26 04/05/2014 4:41 PM EDT documented in this encounter Discharge Instructions * Patient Instructions* Antonio Richey MD - 04/06/2014 5:19 PM EDT Patient Instructions: Please follow up for diabetes with your PCP Take all your medication as prescribed Do not take your blood pressure medications on discharge ?? After 2 weeks (04/21) start by half the dose of: ?? Lisinopril 20 mg daily ?? Your PCP will slowly add the other medications over the next 2 months to get to normal blood pressure. You were admitted to the neurology service at [facility] Your Diagnosis: stroke causing right sided weakness Call 911 or your local EMS if you have sudden weakness or numbness in your face or one of your limbs, slurred speech, loss of vision, or difficulty speaking. It is important to seek medical attentionas soon as possible, as these symptoms could be related to a new stroke. Diet: we recommend a heart healthy diet: low fat, low cholesterol, low concentrated sweets. Activity Restrictions: As tolerated. Driving Restrictions: do not drive until you are cleared by your PCP or neurologist Diabetes Follow-up and Instructions: 1. Continue to monitor blood sugars with goal BG <120 and HAIC <7.0. 2. Know your cholesterol levels and the goal you are striving for. Your goal LDL is <100. 3. Continue to try eating healthy, which includes a low fat, low cholesterol, high fiber, no added sweets diet. 4. Exercising regularly is important. The goal for most people is 30 minutes of exercise, 3-4 timesper week. Check with your Health care Provider for specific guidelines. 5. Monitor blood pressure weekly: Goal for most patients is <130/70. Check with your Health CareProvider for specific guidelines. Continue to take all medications daily. 6. Remember to have an annual ophthalmic (eye) examination 7. Remember to have a quarterly foot examination done by your Health care provider. 8. Ask your Health care Provider about annual screening for urine micro-albumin. 9. Please plan quarterly follow-up visits for diabetes management with your Health care Provider. 10. Consider Diabetes Education in your community; [facility] offers a diabetes program called ???Jump Start?? . Call [facility] for more information. Follow-up: Neurology: You will have a follow-up appointment in the neurology clinic at [facility]. See above for the appointment time. If you do not have an appointment, you will be called with a time/date for this appointment. Primary Care Provider: Please follow up with your Primary Care Provider within one to 2 weeks of discharge. For questions regarding this document or issues relating to this hospitalization on the Neurology Service, please contact the author(s) of this discharge summary through the [facility] Bindery Cutter Operator . * Attachments The following attachments cannot be sent through Care Everywhere. * ISCHEMIC STROKE : GENERAL INFO (MONEGASQUE) * STROKE (MONEGASQUE) * STROKE REHABILITATION (MONEGASQUE) documented in this encounter Medications at Time of Discharge Medication Sig Dispensed Refills Start Date End Date clopidogrel (PLAVIX) 75 mg tablet Take 1 [...] a month from discharge. 30 tablet 04/07/2014 aspirin 325 mg tablet Take 1 tablet by mouth daily. 30 tablet 0 04/07/2014 09/06/2020 atorvastatin (LIPITOR) 80 mg tablet Take 1 tablet by mouth every evening. 30 tablet 0 04/07/2014 09/08/2024 chlorthalidone (HYGROTEN) 25 mg tablet Take 1 tablet by mouth daily. Would slowly add this back on after a month from discharge. 04/07/2014 09/06/2020 pantoprazole (PROTONIX) 40 mg tablet Take 1 tablet by mouth daily. 90 tablet 04/07/2014 09/06/2020 documented as of this encounter Progress Notes * Stormy Braun RN - 04/08/2014 10:59 AM EDT 54 yo male admitted on 04/05 for CVA is being DC to [facility] bed. At time of discharge pt A+Ox4, pupils equal and reactive, strengths 5/5 on the L and 3/4 on the right. Lungs clear. VSS. Voiding in bathroom without difficultly. Ambulates with front wheel walker and stand by assist. [facility] Pt [facility] by private car with all possessions. Packet for . with family. * Sherrie Dickerson - 04/08/2014 9:40 AM EDT Office of Care Management/Legal Analyst Patient Name: Galo Maldonado : 1960 Patient has been offered a Swing bed at [facility]. Transportation will be provided by private car at 10am. Please have MD call Dr. Jennifer Bruce at [phone]. Please call Nursing Report to [phone], ask for Clinical Coordinator. Info to accompany patient: Narcotic Prescriptions Copies of Medication Administration Records and IV sheets for past 10 days. Plan: Legal Analyst will be available to the patient and CRC for further assistance. Patient will be discharged to: [facility] Address [address] [id number] SHERRIE DICKERSON Legal Analyst * Kraig Julio MD - 04/08/2014 7:29 AM EDT Neurology Progress Note Patient Name: Galo Maldonado Admit Date: 04/05/2014 Attending: Isidoro Patient ID: Galo Maldonado is a 54 y.o. patient presenting with dysarthria, right facial droop, right hand weakness, right foot weakness. Active Issues: Left hemispheric infarct Hypertension Pre-diabetes Interval History: Patient's exam unchanged TTE interpreted Pt to rehab today Medications: ??? clopidogrel 75 mg Oral Daily ??? pantoprazole 40 mg Oral Daily ??? chlorhexidine 15 mL Oral Q12H PALMER ??? sodium chloride 0.9 % 5 mL Intravenous BID ??? docusate sodium 100 mg Oral BID ??? enoxaparin 40 mg Subcutaneous Daily ??? aspirin 325 mg Oral Daily ??? atorvastatin 80 mg Oral QPM Physical Exam: Vitals: Temp: [36.7 ??C (98.1 ??F)-37.2 ??C (99 ??F)] Heart Rate: [60-85] Resp: [16-20] BP: (149-180)/(98-126) SpO2: [96 %-99 %] Constitutional: Patient of apparent stated age, no acute distress CV: RRR, S1, S2, no murmur Resp: CTAB Neuro: MS: Alert, oriented, clear language, no dysarthria CN: PERRL, EOMI, visual beck full, trigeminal sensation intact, facial asymmetry, right corner ofmouth droops, hearing intact to whisper, palate elevates symmetrically, tongue protrudes midline, SCM and trap strength intact Motor: Normal bulk and tone. 4/5 strength in right upper extremity, 5/5 strength in left upper extremity and 5/5 strength in left lower extremities, 4/5 strength in right lower extremity, patient reports that his right foot catches on the ground when walking Sensation: Intact to light touch, pain, temperature, and vibration throughout Reflexes: 2+ DTRs, downgoing toes Coordination: Finger to nose intact, rapid alternating movements intact and symmetric Gait: Stable, steady Labs: No results found for this or any previous visit (from the past 24 hour(s)). Diagnostic Tests and Imaging: MRI: Impression 1. 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 2. 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 Carotid Duplex Interpretation: RIGHT: There is irregular plaque in the proximal internal carotid artery causing <15% stenosis when compared to the more distal internal carotid artery. Tortuous mid/distal ICA. The bifurcation level is in the mid neck. LEFT: There is irregular plaque in the proximal internal carotid artery causing <15% stenosis when compared to the more distal internal carotid artery. Tortuous mid/distal ICA. The bifurcation level is in the mid neck. Vertebral Artery Data: Patent vertebral arteries with normal antegrade Doppler waveforms and velocities bilaterally. Comparison: No previous study in our vascular lab database for comparison. TTE SUMMARY: 1. Regarding the question of embolism, there is a small PFO documented by agitated saline injection with Valsalva. No other potential source of embolism seen. 2. The left ventricular chamber size is normal. There is normal global left ventricular systolic function. The quantitative left ventricular ejection fraction by biplane Stevens's method is 64%. There are no left ventricular segmental wall motion abnormalities. 3. Right ventricular chamber size, wall thickness, and systolic function are within normal limits. 4. Both atria are normal in size. 5. There is no hemodynamically significant valve disease. 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 MRI imaging has been done wihich show infarction of left guillen radiata. TTE is pending. PT/OT have evaluated the patient and he will be heading to rehab whenever a bed is available. Plan: #Infarct -q4 hour neuro checks -q4 hour vitals -Permissive hypertension, labetalol, hydralazine as needed for SBP >220 -Telemetry monitoring -Echocardiogram pending -Aspirin 325 mg po now and daily -Clopidogrel daily -Lipitor 80 mg -Restart VICENTE-I in two weeks #Diabetes -Nutrition consult -Diabetic diet #Supportive -PT/OT consult -DVT ppx: lovenox, SCDs -GI ppx: RBOs -Tylenol prn pain or fever -Code status: FULL Neurology Staff Note I have reviewed the above resident's history during the visit and I agree with the details as written. My physical examination confirms the resident's findings. The assessment and plan were formulated in discussion with me at the time of the visit and I agree with them as documented. Stable-a little stronger with R hand. Ready for transfer to [facility] * Ana Gordillo SLP - 04/07/2014 2:34 PM EDT Speech-Language Pathology Progress Note 04/07/2014 2:34 PM Total Treatment Time: 25n min. Speech treatment Total Timed Code Treatment: 0 min. S: Pt contacted, alert. Sitting upright in bedside chair. Pt denies pain at this time. Patient's brother and friend present at time of session. O: Patient will demonstrate 100% intelligibility @ the sentence level. 100% intelligibility @ the phrase level. Patient will demonstrate independent use of compensatory speech strategies. Patient is demonstrating use of compensatory speech strategies with mod cues provided to improve speech intelligibility during conversational speech. Patient is independently attempting to self-correct to improve intelligibility. Patient will verbally state two compensatory speech strategies @ indedendent level. Patient was able to verbally state 1 of 2 compensatory speech strategies at independent level. Educated patient on strategies including slow speech and over articulating productions. A: Patient continues to present with mild dysarthria of speech consistent with that of an unilateral upper motor neuron lesion. His speech has improved with use of compensatory speech strategies, however he has not yet demonstrated independence during conversational speech tasks. Would recommend GOVERNMENT PROGRAM MANAGER services upon discharge from acute care setting with focus on motor speech. Dx: Unilateral upper motor neuron dysarthria Recommendations: Diet: Regular diet, regular liquids Upright during and 30 minutes following meals Speak at a slow rate Over articulate productions P: Speech Pathology to follow 2-4x/week while hospitalized. Pt is in agreement with treatment plan. Ana Gordillo MS, CCC-GOVERNMENT PROGRAM MANAGER Speech-Language Pathologist Rehabilitation Medicine Pager #[phone] * Amy Gandhi OTA - 04/07/2014 1:58 PM EDT Occupational Therapy Treatment Note Visit #: 2 Patient Dx: Galo Maldonado is a 54 y.o. male patient of Kraig Cruz MD, admitted on 04/05/2014 with deep left hemispheric involvement presumably from penetrating artery disease (small vessel occlusive disease). [facility] guillen radiata. Precautions/Special Considerations: at risk to fall, bleeding precautions, R inattention Interval History: D/c planning Subjective: Oh, really? When told he shouldn't be getting up without someone next to him Objective: Patient seen for therapeutic activities and demonstrated the following: ?? Activities of Daily Living: ?? Pt shaved face using AKHIOK A with R UE initially, then independently with R UE using compensatory strategies, and then with L UE when R UE fatigued. ?? Pt off to shower with LEAD DIE MOLDER, educated pt and LEAD DIE MOLDER on importance of incorporating R UE into self-care tasks. ?? Functional Mobility: ?? Supine <> sit: N/A pt sitting in cc upon therapists arrival ?? Sit <> Stand: Supervision ?? Ambulation: sbA using fww ?? Completed several reaching tasks with no LOB noted while sitting upright in cc ?? Cognition: ?? Alert and oriented ?? Motivated and cooperative ?? Follows directions appropriately ?? Limited safety awareness - attempting to stand up and ambulate by himself ?? Vision: ?? Able to read accurately ?? R inattention ?? Endurance: ?? Fatigues quickly, increased muscle weakness noted when fatigued. ?? Strength/Range of Motion: ?? L UE: shoulder flex: 3/5, shoulder ext: 4/5, shoulder abd: 4/5, shoulder add: 4/5, elbow flex/ext: 4/5, wrist flex/ext: impaired fine motor and dexterity ?? Pt reports he has been squeezing ball throughout the day today and trying to incorporate R UE inas many tasks as possible. Pain: No c/o pain Education: Pt/family education ongoing re: compensatory visual techniques, increasing R UE strength, endurance, functional mobility, participation in self- care tasks, incorporating R UE into tasks, OT, d/c planning. Staff Communication: Patient status, treatment, and mobility recommendations discussed with nursing/other staff. Assessment: Pt continues to present as motivated, eager for therapy, and cooperative. Pt able to shave face using R UE with AKHIOK assistance initially and then independently using compensatory techniques. Pt with decreased safety awareness and requires verbal cues for safety and insight. Pt would benefit from ongoing OT services to maximize functional mobility and increased independence with ADL's. Discharge Recommendations: Patient requires ongoing 24/7 supervision and assistance. Patient would benefit from continued therapy interventions in a rehab setting in order to achieve functional independence and safety while improving activity tolerance. Occupational Therapy Goals: To be achieved within 1 week, by 04/13/14: 1. Patient will copnsistenly complete hygiene tasks with use of R UE for at least 50% of the task. 2. Patient will be min A for lower body dressing with use of R UE for at least 50% of task. 3. Patient will ambulate to/from bathroom for toileting with least restrictive device and SBA to CGA. 4. Patient will feed self with only occasional assist for container management. 5. Patient will be independent for R UE exercise program. Plan: Pt to be seen 2-4 times per week for therapy including Role of occupational therapy/rehabilitation, Transfers, Assistive device/technique, Adaptive equipment training, ADL, Exercise, Positioning, Safety, Precautions/Protocol, Functional Mobility, Activity pacing/Energy conservation, Home Management, Balance, Recommendations, Family training and Discharge planning Eval Date: 04/06/2014 Total time spent with patient: 20 minutes Total timed interventions: 20 minutes Pager: [phone] BRIANNA DIANA Occupational Therapy Rehabilitation Department * April Garrido RD - 04/07/2014 12:34 PM EDT NUTRITION SERVICES VISIT FOR DIABETES/PRE-DIABETES Active Problems: * No active hospital problems. * There is no problem list on file for this patient. Patient ID: Galo Maldonado is a 54 y.o. patient presenting with dysarthria, right facial droop, right hand weakness, right foot weakness. Results for GALO MALDONADO ( ) as of 04/07/2014 12:37 Ref. Range 04/06/2014 05:20 Glucose Fasting Latest Range: 65-99 mg/dL 132 (H) Results for GALO MALDONADO ( ) as of 04/07/2014 12:37 Ref. Range 04/06/2014 05:20 Hemoglobin A1C Latest Range: <=5.6 % 6.2 (H) Goals of MNT: Carbohydrate controlled meal plan that promotes adequate nutrition, normoglycemia andabsence of Ketosis. Pt: Interview: Typical daily intake: 3 meals daily, infrequent snacking, water to drink, no sweetened beverages, no concentrated sweets. Activity Level: unclear from our conversation but sounds as if he is mostly sedentary. Instructed patient and family/friends on very basic carbohydrate counting, with focus on eliminating refined carbohydrates and portion control (which it sounds like pt was already doing). Also discussed increasing physical activity when cleared medically to do so. Also, pt's HA1C put him in the pre-diabetes category but his fasting glucose puts him at DM2. Recommend repeat fasting glucose or an oral glucose tolerance test to accurately categorize/diagnose thispt. Patient instructed to call me with any questions or concerns-phone number provided. He is pleasant and verbalized good understanding although he is quite distraught with the thought of having BG issues as he sees himself as a very healthy eater. Nutrition to follow weekly while hospitalized. * Grazyna Bradley RN - 04/07/2014 12:27 PM EDT patient refused another IV placed until DC tomorrow. * Karen Fajardo PT - 04/07/2014 12:21 PM EDT Physical Therapy Treatment Note Visit #: 01/11 Patient Dx: Pt is a 54 y.o male adm 04/05/[address] Julio, Kraig Bill MD . Pt with deep left hemispheric involvement presumably from penetrating artery disease (small vessel occlusive disease). MRI imaging has been done [facility] show infarction of left guillen radiata. . Precautions: high fall risk, up with A, labetol for SBP> 220, right foot drop Staff Communication/Mobility Recommendations: high fall risk, amb with FWW and min A- c.g with vicente wrap ( wrapped as sling) for right foot drop Interval History: Rehab delayed S: Pt upset about delay of DC O: Patient seen for gait- training, education and neuro- jil to address goals. Pt demonstrated thefollowing ?? MS: pleasant, cooperative ?? Mob: sit- stand and transfers with close S ?? Gait: Pt amb 150 feet with fWW and min A, foot drop on right, improved with vicente- wrap as noted above ?? Exs: review of ex- program to improve motor control on right Pain: denies pain Education: Pt/family education ongoing reg safety and ex to improve motor control A: Right hemiparesis unchanged from yesterday. Pt remains at high fall risk due to foot drop on right Pt will benefit from ongoing therapeutic interventions to achieve therapy goals Physical Therapy Goals: Pt will achieve the following by DC . ongoing 1. Demonstrate knowledge of safety limitations and precautions and will appropriately request assistance for functional activities and to mobilize. 2. Demonstrate understanding and carry over of appropriate exercises. 3. Perform bed mobility I 4. Demonstrate midline sitting balance with S while performing funct tasks 5. Perform sit <> stand transfer with S 6. Ambulate 150 feet with device and close S 7. Ambulate up/down min 8 step/stairs with S 8. Family or caregiver to demonstrate understanding of therapeutic interventions including safe andcorrect assistive techniques, positioning to decrease risk of skin breakdown, contractures, and loss of range of motion to support the care of the patient. 9. Discharge Recommendations: Rehab P: Cont per POC as outlined on initial eval. Total time spent with patient: 33 minutes Total timed interventions: 33 minutes Pager: [phone] KAREN FAJARDO PT Physical Therapy Rehabilitation Department * Kraig Julio MD - 04/07/2014 7:23 AM EDT Neurology Progress Note Patient Name: Galo Maldonado Admit Date: 04/05/2014 Attending: Isidoro Patient ID: Galo Maldonado is a 54 y.o. patient presenting with dysarthria, right facial droop, right hand weakness, right foot weakness. Active Issues: Left hemispheric infarct Hypertension Pre-diabetes Interval History: MRI's completed Patient's exam unchanged Nutrition consult for pre-diabetes concern PT/OT evals appreciated Pt to rehab today Medications: ??? [COMPLETED] clopidogrel 150 mg Oral Once ??? clopidogrel 75 mg Oral Daily ??? pantoprazole 40 mg Oral Daily ??? chlorhexidine 15 mL Oral Q12H PALMER ??? sodium chloride 0.9 % 5 mL Intravenous BID ??? docusate sodium 100 mg Oral BID ??? enoxaparin 40 mg Subcutaneous Daily ??? aspirin 325 mg Oral Daily ??? atorvastatin 80 mg Oral QPM Physical Exam: Vitals: Temp: [36.3 ??C (97.3 ??F)-36.9 ??C (98.4 ??F)] Heart Rate: [54-105] Resp: [16-20] BP: (149-178)/(95-117) SpO2: [94 %-98 %] Constitutional: Patient of apparent stated age, no acute distress CV: RRR, S1, S2, no murmur Resp: CTAB Neuro: MS: Alert, oriented, clear language, no dysarthria CN: PERRL, EOMI, visual beck full, trigeminal sensation intact, facial asymmetry, right corner ofmouth droops, hearing intact to whisper, palate elevates symmetrically, tongue protrudes midline, SCM and trap strength intact Motor: Normal bulk and tone. 4/5 strength in right upper extremity, 5/5 strength in left upper extremity and 5/5 strength in left lower extremities, 4/5 strength in right lower extremity, patient reports that his right foot catches on the ground when walking Sensation: Intact to light touch, pain, temperature, and vibration throughout Reflexes: 2+ DTRs, downgoing toes Coordination: Finger to nose intact, rapid alternating movements intact and symmetric Gait: Stable, steady Labs: No results found for this or any previous visit (from the past 24 hour(s)). Diagnostic Tests and Imaging: MRI: Impression 1. 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 2. 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 Carotid Duplex Interpretation: RIGHT: There is irregular plaque in the proximal internal carotid artery causing <15% stenosis when compared to the more distal internal carotid artery. Tortuous mid/distal ICA. The bifurcation level is in the mid neck. LEFT: There is irregular plaque in the proximal internal carotid artery causing <15% stenosis when compared to the more distal internal carotid artery. Tortuous mid/distal ICA. The bifurcation level is in the mid neck. Vertebral Artery Data: Patent vertebral arteries with normal antegrade Doppler waveforms and velocities bilaterally. Comparison: No previous study in our vascular lab database for comparison. Awaiting TTE read Assessment and Plan: This is a 54 yo M with deep left hemispheric involvement presumably from penetrating artery disease(small vessel occlusive disease). [facility] left guillen radiata. TTE is pending. PT/OT have evaluated the patient and will be heading to [facility] for rehab. Plan: #Infarct -q4 hour neuro checks -q4 hour vitals -Permissive hypertension, labetalol, hydralazine as needed for SBP >220 -Telemetry monitoring -Echocardiogram pending -Aspirin 325 mg po now and daily -Clopidogrel daily -Lipitor 80 mg -Restart VICENTE-I in two weeks #Diabetes -Nutrition consult -Diabetic diet today -Nutrition to provide diabetes education today #Supportive -PT/OT consult -DVT ppx: lovenox, SCDs -GI ppx: RBOs -Tylenol prn pain or fever -Code status: FULL Neurology Staff Note I have reviewed the above resident's history during the visit and I agree with the details as written. My physical examination confirms the resident's findings. The assessment and plan were formulated in discussion with me at the time of the visit and I agree with them as documented. Tx cancelled due to no bed at [facility]. Continue with current plans. Needs close neurologically monitoring at acute level given recent neurological instability and need for close BP monitoring. * Grazyna Bradley RN - 04/06/2014 3:28 PM EDT Echo being performed at bedside. * Ana Gordillo SLP - 04/06/2014 10:23 AM EDT Speech-Language Pathology Bedside Swallow Evaluation 1960 Total Treatment Time: 25 min. eval Total Timed Code Treatment: 0 min. S: Pt contacted, alert. Sitting upright in bedside chair. Pt denies pain at this time. O: Order received and completed with this 54 y.o. old male admitted on 04/05/2014 presenting with dysarthria, right facial droop, right hand weakness and right foot weakness. MRI imaging has been done which show infarction of left guillen radiata. Patient was placed NPO, but was restarted on diet today. Speech consulted to perform bedside swallow evaluation. Medical History: No past medical history on file. Current Diet: [facility] Diet Cognitive-Linguistic Status: alert, Ox3, able to follow simple directions and respond to basic questions Respiratory Status: pt on room air Feeding / Oral Care Status: requires support due to right sided weakness Seating and Positioning: pt able to sit up with head midline without assistance Oral Peripheral: ?? Pt reports normal sensation ?? Lingual ROM, strength, agility & coordination WNL ?? Adequate laryngeal elevation to palpation ?? Able to produce volitional cough, swallow ?? Slight right sided labial weakness upon retraction and at rest ?? Adequate oral hygiene ?? Natural dentition ?? Velar elevation is present ?? Imprecise, irregular diadochokinesis ?? Slurred, dysarthric speech, imprecise articulation at the phrase, reduced intelligibility particularly when producing multi-syllabic words Bolus Presentation(s): ?? Thin liquid via straw, single and sequential sips ?? puree ?? mechanical soft via spoon ?? regular large bite Oral Preparatory Phase: ?? WFL ?? Adequate lip closure ?? No loss from oral cavity ?? Adequate bolus cohesion and A-P propulsion ?? Prompt swallow initiation ?? No oral residue noted Pharyngeal Phase: Appears to be WFL, no overt clinical s/s aspiration or pharyngeal dysphagia noted during evaluation. Esophageal Phase: Appears to be WFL, No overt clinical s/s of esophageal phase dysphagia noted during this limited evaluation. A: Bolus cohesion and control presented within normal limits across consistencies. The patient exhibited a timely oral transit, a timely initiation of swallow and was without overt s/s of aspiration/penetration across consistencies. The patient does present with mildly dysarthric speech characterized by imprecise articulation at the phrase level. Presented the patient with strategies to improve speech intelligibility including speaking slowly and over articulating productions. It is recommendedthat the patient receive GOVERNMENT PROGRAM MANAGER services upon discharge from acute care setting if speech is not at baseline at time of discharge. Dx: No outward s/s of oropharyngeal Dysphagia at this time Mild dysarthria Recommendations: Diet: Regular diet, regular liquids Upright during and 30 minutes following meals GOVERNMENT PROGRAM MANAGER services upon discharge from acute care setting speech is not back to baseline Goals: Patient will demonstrate 100% intelligibility @ the sentence level. Patient will demonstrate independent use of compensatory speech strategies. Patient will verbally state two compensatory speech strategies @ independent level. P: Speech Pathology to follow 2-4x/week while hospitalized. Pt is in agreement with treatment plan. Thank you for this consult with this patient. Please feel free to page me with any questions or concerns. Ana Gordillo MS, CCC-GOVERNMENT PROGRAM MANAGER Inpatient Rehabilitation Medicine Pager:#[phone] * Kraig Julio MD - 04/06/2014 7:22 AM EDT Neurology Progress Note Patient Name: Galo Maldonado Admit Date: 04/05/2014 Attending: Isidoro Patient ID: Galo Maldonado is a 54 y.o. patient presenting with dysarthria, right facial droop, right hand weakness, right foot weakness. Active Issues: Left hemispheric infarct Hypertension Pre-diabetes Interval History: MRI's completed Patient's exam unchanged Nutrition consult for pre-diabetes concern Medications: ??? chlorhexidine 15 mL Oral Q12H PALMER ??? sodium chloride 0.9 % 5 mL Intravenous BID ??? docusate sodium 100 mg Oral BID ??? enoxaparin 40 mg Subcutaneous Daily ??? aspirin 325 mg Oral Daily ??? atorvastatin 80 mg Oral QPM ??? [DISCONTINUED] aspirin 325 mg Oral Daily Physical Exam: Vitals: Temp: [36.6 ??C (97.9 ??F)-37 ??C (98.6 ??F)] Heart Rate: [67-121] Resp: [16-18] BP: (134-199)/(87-132) SpO2: [96 %-98 %] Constitutional: Patient of apparent stated age, no acute distress CV: RRR, S1, S2, no murmur Resp: CTAB Neuro: MS: Alert, oriented, clear language, no dysarthria CN: PERRL, EOMI, visual beck full, trigeminal sensation intact, facial asymmetry, right corner ofmouth droops, hearing intact to whisper, palate elevates symmetrically, tongue protrudes midline, SCM and trap strength intact Motor: Normal bulk and tone. 4/5 strength in right upper extremity, 5/5 strength in left upper extremity and 5/5 strength in left lower extremities, 4/5 strength in right lower extremity Sensation: Intact to light touch, pain, temperature, and vibration throughout Reflexes: 2+ DTRs, downgoing toes Coordination: Finger to nose intact, rapid alternating movements intact and symmetric Gait: Stable, steady Labs: Recent Results (from the past 24 hour(s)) CBC (WITH DIFF) Component Value Range WBC 8.4 4.0 - 10.0 x10(3)/mcL RBC 5.79 4.63 - 6.08 x10(6)/mcL Hemoglobin 17.9 (*) 13.7 - 17.5 gm/dL Hematocrit 48.5 40.0 - 51.0 % MCV 83.8 79.0 - 92.0 fL MCH 30.9 25.6 - 32.2 pg MCHC 36.9 (*) 32.0 - 36.5 gm/dL Platelets 199 145 - 370 x10(3)/mcL RDWSD 39.8 35.0 - 46.0 fL RDWCV 13.3 10.9 - 14.4 % MPV 10.9 9.0 - 12.0 fL BASIC METABOLIC PANEL (NON-FASTING) Component Value Range Glucose Lvl 147 60 - 199 mg/dL BUN 13 10 - 20 mg/dL Creatinine 1.13 0.80 - 1.50 mg/dL Sodium 141 135 - 145 mmol/L Potassium 3.7 3.5 - 5.0 mmol/L Chloride 102 98 - 107 mmol/L CO2 21 (*) 22 - 31 mmol/L Anion Gap 18 (*) 5 - 15 mmol/L Calcium 10.3 8.5 - 10.5 mg/dL Estimated GFR >60 >=60 PHOSPHORUS Component Value Range Phosphorus 3.2 2.5 - 4.5 mg/dL MAGNESIUM Component Value Range Magnesium 0.94 0.69 - 1.07 mmol/L HEPATIC FUNCTION PANEL Component Value Range Total Protein 8.2 6.4 - 8.3 gm/dL Albumin 4.9 3.2 - 5.2 gm/dL AST 16 0 - 39 unit/L ALT 19 0 - 55 unit/L Alk Phos 136 (*) 40 - 120 unit/L Total Bilirubin 1.2 0.2 - 1.3 mg/dL Bili, Direct 0.2 0.0 - 0.3 mg/dL PROTHROMBIN TIME Component Value Range PT 14.2 12.0 - 15.0 sec INR 1.1 0.9 - 1.1 APTT Component Value Range PTT 28 25 - 35 sec DIFFERENTIAL, AUTOMATED Component Value Range Neutrophils % 74.3 (*) 34.0 - 71.0 % Neutr Abs (ANC) 6.22 1.50 - 6.30 x10(3)/mcL Lymphocytes % 17.7 (*) 19.0 - 53.0 % Lymphocytes Abs 1.5 1.0 - 3.6 x10(3)/mcL Monocytes % 6.9 4.0 - 13.0 % Monocyte Abs 0.6 0.2 - 1.0 x10(3)/mcL Eosinophils % 0.6 0.0 - 7.0 % Eosinophils Abs 0.0 0.0 - 0.5 x10(3)/mcL Basophils % 0.1 0.0 - 2.0 % Basophils Abs 0.0 0.0 - 0.2 x10(3)/mcL Immature Gran % 0.40 0.00 - 0.66 % Elizabeth Gran Abs 0.03 0.00 - 0.05 x10(3)/mcL HEMOGLOBIN A1C Component Value Range Hemoglobin A1C 6.2 (*) <=5.6 % Est Avg Gluc 131 LDL CHOLESTEROL, DIRECT Component Value Range LDL Chol Direct 124 (*) <=99 mg/dL HDL/CHOL PROFILE Component Value Range Chol, Total 174 <=199 mg/dL HDL 25 (*) >=40 mg/dL Chol/HDL Ratio 7.0 TRIGLYCERIDE Component Value Range Triglycerides 198 (*) <=149 mg/dL GLUCOSE, FASTING Component Value Range Glucose Fasting 132 (*) 65 - 99 mg/dL Diagnostic Tests and Imaging: MRI: Impression 1. 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 2. 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 MRI imaging has been done wihich show infarction of left guillen radiata. TTE is pending. The patient will be restarting diet today, will meet with nutrition regarding pre-diabetic labs. PT/OT will evaluate and help determine what intervention will best benefit patient Plan: #Infarct -q4 hour neuro checks -q4 hour vitals -Permissive hypertension, labetalol, hydralazine as needed for SBP >220 -Telemetry monitoring -Echocardiogram pending -Aspirin 325 mg po now and daily -Lipitor 80 mg #Pre-diabeted -Nutrition consult -Start diet today #Supportive -PT/OT consult -DVT ppx: lovenox, SCDs -GI ppx: RBOs -Tylenol prn pain or fever -Code status: FULL Neurology Staff Note I have reviewed the above resident's history during the visit and I agree with the details as written. My physical examination confirms the resident's findings. The assessment and plan were formulated in discussion with me at the time of the visit and I agree with them as documented. Seemed a bit weaker this AM but still waking up. Seen later walking with PTx. MRI reviewed and confirmed dx. Add clopidogrel for now given fluctuations on aspirin. Seeking dc options. documented in this encounter H&P Notes * Fortino Painting MD - 04/05/2014 5:30 PM EDT Neurology Stroke Admission History and Physical Patient name: Galo Maldonado Date of :1960 PCP: Madeline Mehta, of [facility] CC: Right arm numbness Onset of symptoms or last seen normal: Started Saturday night, 04/02/14, three days ago Patient evaluated at [facility] Saturday04/04/14 but left AMA, then returned the morning of Saturday04/05/14 [facility] direct transfer: arrived at 16:30 to [facility] HPI: Galo Maldonado is a 54 y.o. with history of hypertension who is transferred directly to neurology from [facility] emergency following onset of right finger, hand, and arm numbness and weakness and slurred speech which started three days ago. 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 Two days ago the patient developed someslurring of speech and weakness in his right toes and foot as well. He went to bed that night stating that he felt clumsy climbing into bed. Patient went to [facility] yesterday for evaluation of the continuation of these same symptoms, but left against medical advice because he felt they were not takingproper care of him. He was planning to go to [facility] this AM, but decided to go back to [facility] this morning because he thought that there would be a different team of caregivers on duty at [facility]. The patient was worked up there and was admitted directly to [facility] neurology for left deep hemispheric infarct type stroke. At present the patient endorses right finger tingling which extends up his arm, right hand and arm weakness, right foot weakness, and some dysarthria. PMH: Hypertension PSH: No surgeries Home Medications: Amlodipine 10 Lisinopril 40 Hydrochlorothiazide 25 mg Aspirin occasionally (last was 325 mg yesterday) Allergies: No Known Allergies Family Medical History Father with NH in 60's, DMII in dad, HTN mom and dad. Sister with alcoholism. 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 No smoking, alcohol, or drugs. History Social History Narrative ??? No narrative on file Review of systems: Constitutional: No fevers or chills Eyes: No vision changes, no diplopia, no blurry vision ENT: No rhinorrhea or pharyngitis, no meningismus CV: No chest pain or palpitations Resp: No cough, no shortness of breath GI: No nausea, vomiting, diarrhea or constipation : No dysuria, no incontinence Heme: No bleeding or bruising Endo: No diabetes or thyroid disease Neuro: See HPI Psych: No depression, normal sleep [x] Review of systems otherwise negative NIH Stroke Scale: NIH Stroke Scale at Initial Evaluation: 1.a. Level of consciousness: 0-Alert 1-Not alert, but arousable with minimal stimulation 2-Not alert, requires repeat stimulation to attend 3-Coma 1.b. Ask patient the month and their age: 0-Answers both correctly 1-Answers one correctly 2-Both incorrect 1.c. Ask patient to open and close eyes: 0-Obeys both correctly 1-Obeys one correctly 2-Both incorrect 2. Best gaze (horizontal eye movement): 0-Normal 1-Partial gaze palsy 2-Forced deviation 3. Visual field testin-No visual field loss 1-Partial hemianopia 2-Complete hemianopia 3-Bilateral hemianopia (blind including cortical blindness) 4. Facial paresis (Ask patient to show teeth or raise eyebrows and close eyes tightly): 0-Normal symmetrical movement 1-Minor paralysis (flattened nasolabial fold, asymmetry on smiling) 2-Partial paralysis (total or near paralysis of lower face) 3-Complete paralysis of one or both sides (absence of facial movement in the upper and lower face) 5. Motor function right arm: 0-Normal (extends arm 90 degrees for 10 seconds without drift) 1-Drift 2-Some effort against gravity 3-No effort against gravity 4-No movement 9-Untestable (Joint fused or limb amputated) 5. Motor function- left arm: 0-Normal (extends arm 90 degrees for 10 seconds without drift) 1-Drift 2-Some effort against gravity 3-No effort against gravity (but baseline) 4-No movement 9-Untestable (Joint fused or limb amputated) 6. Motor function right le-Normal (extends leg 30 degrees for 5 seconds without drift) 1-Drift 2-Some effort against gravity 3-No effort against gravity 4-No movement 9-Untestable (Joint fused or limb amputated) 6. Motor function-left le-Normal (extends leg 30 degrees for 5 seconds without drift) 1-Drift 2-Some effort against gravity 3-No effort against gravity 4-No movement 9-Untestable (Joint fused or limb amputated) 7. Limb ataxia: 0-No ataxia 1-Present in one limb 2-Present in two limbs 8. Sensory (Use pinprick to test arms, legs, trunk and face compare side to side): 0-Normal 1-Mild to moderate decrease in sensation 2-Severe to total sensory loss 9. Best language (describe picture, name items, read sentences): 0-No aphasia 1-Mild to moderate aphasia 2-Severe aphasia 3-Mute 10. Dysarthria (read several words): 0-Normal articulation 1-Mild to moderate slurring of words 2-Near unintelligible or unable to speak 9-Intubated or other physical barrier 11. Extinction and inattention: 0-Normal 1-Inattention or extinction to bilateral simultaneous in one of the sensory modalities 2-Severe shailesh-inattention or shailesh-inattention to more than one modality TOTAL SCORE: 3 Physical Exam: Vitals: Temp: [36.6 ??C (97.9 ??F)-37 ??C (98.6 ??F)] Heart Rate: [67-121] Resp: [16-18] BP: (134-199)/(87-132) SpO2: [96 %-98 %] Fingerstick glucose: 167 at OSH Constitutional: Patient of apparent stated age, well nourished, well developed, no acute distress, warm cheeks Neck: Supple, no meningismus, no carotid bruit CV: RRR, S1, S2, no murmur Resp: CTAB Abd: Soft, nontender, nondistended Ext: No edema. No bony deformity Neuro: MS: Alert, oriented, clear language, no dysarthria CN: PERRL, EOMI, visual beck full, trigeminal sensation intact, facial asymmetry, right corner ofmouth droops, hearing intact to whisper, palate elevates symmetrically, tongue protrudes midline, SCM and trap strength intact Motor: Normal bulk and tone. 4/5 strength in right upper extremity, 5/5 strength in left upper extremity and 5/5 strength in bilateral lower extremities Sensation: Intact to light touch, pain, temperature, and vibration throughout Reflexes: 2+ DTRs, downgoing toes Coordination: Finger to nose intact, rapid alternating movements intact and symmetric Gait: Stable, steady Labs: Recent Results (from the past 24 hour(s)) CBC (WITH DIFF) Component Value Range WBC 8.4 4.0 - 10.0 x10(3)/mcL RBC 5.79 4.63 - 6.08 x10(6)/mcL Hemoglobin 17.9 (*) 13.7 - 17.5 gm/dL Hematocrit 48.5 40.0 - 51.0 % MCV 83.8 79.0 - 92.0 fL MCH 30.9 25.6 - 32.2 pg MCHC 36.9 (*) 32.0 - 36.5 gm/dL Platelets 199 145 - 370 x10(3)/mcL RDWSD 39.8 35.0 - 46.0 fL RDWCV 13.3 10.9 - 14.4 % MPV 10.9 9.0 - 12.0 fL BASIC METABOLIC PANEL (NON-FASTING) Component Value Range Glucose Lvl 147 60 - 199 mg/dL BUN 13 10 - 20 mg/dL Creatinine 1.13 0.80 - 1.50 mg/dL Sodium 141 135 - 145 mmol/L Potassium 3.7 3.5 - 5.0 mmol/L Chloride 102 98 - 107 mmol/L CO2 21 (*) 22 - 31 mmol/L Anion Gap 18 (*) 5 - 15 mmol/L Calcium 10.3 8.5 - 10.5 mg/dL Estimated GFR >60 >=60 PHOSPHORUS Component Value Range Phosphorus 3.2 2.5 - 4.5 mg/dL MAGNESIUM Component Value Range Magnesium 0.94 0.69 - 1.07 mmol/L HEPATIC FUNCTION PANEL Component Value Range Total Protein 8.2 6.4 - 8.3 gm/dL Albumin 4.9 3.2 - 5.2 gm/dL AST 16 0 - 39 unit/L ALT 19 0 - 55 unit/L Alk Phos 136 (*) 40 - 120 unit/L Total Bilirubin 1.2 0.2 - 1.3 mg/dL Bili, Direct 0.2 0.0 - 0.3 mg/dL PROTHROMBIN TIME Component Value Range PT 14.2 12.0 - 15.0 sec INR 1.1 0.9 - 1.1 APTT Component Value Range PTT 28 25 - 35 sec DIFFERENTIAL, AUTOMATED Component Value Range Neutrophils % 74.3 (*) 34.0 - 71.0 % Neutr Abs (ANC) 6.22 1.50 - 6.30 x10(3)/mcL Lymphocytes % 17.7 (*) 19.0 - 53.0 % Lymphocytes Abs 1.5 1.0 - 3.6 x10(3)/mcL Monocytes % 6.9 4.0 - 13.0 % Monocyte Abs 0.6 0.2 - 1.0 x10(3)/mcL Eosinophils % 0.6 0.0 - 7.0 % Eosinophils Abs 0.0 0.0 - 0.5 x10(3)/mcL Basophils % 0.1 0.0 - 2.0 % Basophils Abs 0.0 0.0 - 0.2 x10(3)/mcL Immature Gran % 0.40 0.00 - 0.66 % Elizabeth Gran Abs 0.03 0.00 - 0.05 x10(3)/mcL HEMOGLOBIN A1C Component Value Range Hemoglobin A1C 6.2 (*) <=5.6 % Est Avg Gluc 131 LDL CHOLESTEROL, DIRECT Component Value Range LDL Chol Direct 124 (*) <=99 mg/dL HDL/CHOL PROFILE Component Value Range Chol, Total 174 <=199 mg/dL HDL 25 (*) >=40 mg/dL Chol/HDL Ratio 7.0 TRIGLYCERIDE Component Value Range Triglycerides 198 (*) <=149 mg/dL GLUCOSE, FASTING Component Value Range Glucose Fasting 132 (*) 65 - 99 mg/dL Diagnostic Tests and Imaging: Assessment: Galo Maldonado is a 54 y.o. patient presenting with dysarthria, right facial droop, right hand weakness, right foot weakness. The symptoms localize to right arm, right mouth, and right foot. The likely etiology of this ischemic stroke is yet to be determined. Thrombolytics were/were not considered because patient is well outside of window of opportunity for treatment. A dysphagia screen was not performed at the bedside. Standard stroke admit labs are pending. CT shows deep left hemispheric involvement presumably from penetrating artery disease (small vesselocclusive disease). Patient has been stable since yesterday, has had symptoms for three days now. Full workup involving labs, imaging, and treatment with proper medication will be initiated. Plan: -Admit to Neurology -q4 hour neuro checks -q4 hour vitals -Permissive hypertension, labetalol, hydralazine as needed for SBP >220 -Telemetry monitoring -Labs: pending -Imaging: CT Head from OSH, MRI brain, MRA head and neck -Echocardiogram pending -Aspirin 325 mg po now and daily -Lipitor 80 mg -NPO until speech evaluation -PT/OT consult -DVT ppx: lovenox, SCDs -GI ppx: RBOs -Tylenol prn pain or fever -Code status: FULL Neurology Staff Note I have reviewed the above resident's history during the visit and I agree with the details as written. My physical examination confirms the resident's findings. The assessment and plan were formulated in discussion with me at the time of the visit and I agree with them as documented. He has been stable since yesterday and has a pure motor syndrome consistent with the infarction seen on the CT. Likely due to penetrating artery disease assoc with HTN and possible metabolic syndromeor mild DM not dx previously. I have examined the patient myself and personally reviewed all studies. In addition, I certify thatI am a [facility] credentialed attending provider with admitting privileges and that the patient meets or has met medical necessity to require an inpatient IPI level of care meeting a minimum of two midnights or is on the [facility] inpatient only procedure list (status C) due to: - neurologic instability requiring neurologic checks at least every 4 hours. - acute stroke requiring neurologic checks at least every 4 hours. - documented in this encounter Procedure Notes * Provider, Scanning - 04/10/2014 9:01 AM EDTAssociated Order(s): SCAN DOC: EPIDEMIOLOGY INVESTIGATOR documented in this encounter Miscellaneous Notes * Miscellaneous - Provider, Scanning - 04/10/2014 9:01 AM EDT * Discharge Summary - Kraig Julio MD - 04/08/2014 9:32 AM EDT Images from the original note were not included. [address] [place] [address] NEUROLOGY STROKE INPATIENT DISCHARGE SUMMARY Patient Name: Galo Maldonado : 1960 Admit Date: 04/05/2014 Discharge Date: 04/07/14 Primary Diagnosis: left guillen radiata/posterior limb internal capsule and posterior putamen infracts from small vessel disease Past Medical History: HTN History of Presentation: CC: Right arm numbness Onset of symptoms or last seen normal: Started Saturday night, 04/02/14, three days ago Patient evaluated at [facility] Saturday04/04/14 but left AMA, then returned the morning of Saturday04/05/14 [facility] direct transfer: arrived at 16:30 to [facility] HPI: Galo Maldonado is a 54 y.o. with history of hypertension who is transferred directly to neurology from [facility] emergency following onset of right finger, hand, and arm numbness and weakness and slurred speech which started three days ago. 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 Two days ago the patient developed someslurring of speech and weakness in his right toes and foot as well. He went to bed that night stating that he felt clumsy climbing into bed. Patient went to [facility] yesterday for evaluation of the continuation of these same symptoms, but left against medical advice because he felt they were not takingproper care of him. He was planning to go to [facility] this AM, but decided to go back to [facility] this morning because he thought that there would be a different team of caregivers on duty at [facility]. The patient was worked up there and was admitted directly to [facility] neurology for left deep hemispheric infarct type stroke. At present the patient endorses right finger tingling which extends up his arm, right hand and arm weakness, right foot weakness, and some dysarthria. Physical Exam at Admission: Vitals: Temp: [36.9 ??C (98.4 ??F)] Heart Rate: [121] Resp: [18] BP: (199)/(132) SpO2: [97 %] Fingerstick glucose: 167 at OSH Constitutional: Patient of apparent stated age, well nourished, well developed, no acute distress, warm cheeks Neck: Supple, no meningismus, no carotid bruit CV: RRR, S1, S2, no murmur Resp: CTAB Abd: Soft, nontender, nondistended Ext: No edema. No bony deformity Neuro: MS: Alert, oriented, clear language, no dysarthria CN: PERRL, EOMI, visual beck full, trigeminal sensation intact, facial asymmetry, right corner ofmouth droops, hearing intact to whisper, palate elevates symmetrically, tongue protrudes midline, SCM and trap strength intact Motor: Normal bulk and tone. 4/5 strength in right upper extremity, 5/5 strength in left upper extremity and 5/5 strength in bilateral lower extremities Sensation: Intact to light touch, pain, temperature, and vibration throughout Reflexes: 2+ DTRs, downgoing toes Coordination: Finger to nose intact, rapid alternating movements intact and symmetric Gait: Stable, steady NIH stroke Scale: 3 NIH Stroke Scale at Initial Evaluation: 1.a. Level of consciousness: 0-Alert 1-Not alert, but arousable with minimal stimulation 2-Not alert, requires repeat stimulation to attend 3-Coma 1.b. Ask patient the month and their age: 0-Answers both correctly 1-Answers one correctly 2-Both incorrect 1.c. Ask patient to open and close eyes: 0-Obeys both correctly 1-Obeys one correctly 2-Both incorrect 2. Best gaze (horizontal eye movement): 0-Normal 1-Partial gaze palsy 2-Forced deviation 3. Visual field testin-No visual field loss 1-Partial hemianopia 2-Complete hemianopia 3-Bilateral hemianopia (blind including cortical blindness) 4. Facial paresis (Ask patient to show teeth or raise eyebrows and close eyes tightly): 0-Normal symmetrical movement 1-Minor paralysis (flattened nasolabial fold, asymmetry on smiling) 2-Partial paralysis (total or near paralysis of lower face) 3-Complete paralysis of one or both sides (absence of facial movement in the upper and lower face) 5. Motor function right arm: 0-Normal (extends arm 90 degrees for 10 seconds without drift) 1-Drift 2-Some effort against gravity 3-No effort against gravity 4-No movement 9-Untestable (Joint fused or limb amputated) 5. Motor function- left arm: 0-Normal (extends arm 90 degrees for 10 seconds without drift) 1-Drift 2-Some effort against gravity 3-No effort against gravity (but baseline) 4-No movement 9-Untestable (Joint fused or limb amputated) 6. Motor function right le-Normal (extends leg 30 degrees for 5 seconds without drift) 1-Drift 2-Some effort against gravity 3-No effort against gravity 4-No movement 9-Untestable (Joint fused or limb amputated) 6. Motor function-left le-Normal (extends leg 30 degrees for 5 seconds without drift) 1-Drift 2-Some effort against gravity 3-No effort against gravity 4-No movement 9-Untestable (Joint fused or limb amputated) 7. Limb ataxia: 0-No ataxia 1-Present in one limb 2-Present in two limbs 8. Sensory (Use pinprick to test arms, legs, trunk and face compare side to side): 0-Normal 1-Mild to moderate decrease in sensation 2-Severe to total sensory loss 9. Best language (describe picture, name items, read sentences): 0-No aphasia 1-Mild to moderate aphasia 2-Severe aphasia 3-Mute 10. Dysarthria (read several words): 0-Normal articulation 1-Mild to moderate slurring of words 2-Near unintelligible or unable to speak 9-Intubated or other physical barrier 11. Extinction and inattention: 0-Normal 1-Inattention or extinction to bilateral simultaneous in one of the sensory modalities 2-Severe shailesh-inattention or shailesh-inattention to more than one modality TOTAL SCORE: 3 Hospital Course: Galo Maldonado is a 54 yo M with PMH of HTN who was transferred from OSH and admitted to the neurology service for further evaluation of acute onset R sided weakness and slurred speech. Pt was not a candidate for thrombolytics secondary to outside of timeframe window. hCT done at OSH was negative for acute bleed. Neurological examination on admission was pertinent for R facial droop, RUE 4/5 weakness. Patient was monitored with frequent checks of vitals and neurological status. Telemetry monitoring showed NSR. Permissive HTN was allowed, with labetalol administered prn for SBP >220. 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 MRA revealed no significant stenosis. CUS revealed <15% stenosis bilaterally. TTE revealed small patent foramen ovale on valsalva. See detailed reports as below. Most likely etiology of stroke was likely secondary to penetrating artery disease. Pt takes aspirin 325mg occasionally at home. He was given 325mg on admission and started on this scheduled daily. He was also started on lipitor 80mg daily. The morning of 04/06, pt was noted to be slightly weaker in his RUE, and therefore he was given a clopidogrel load (150 mg) and continued on dual antiplatelet therapy. He was also started on a PPI at this time. HTN: On admission his BP meds were held to allow for permissive HTN. His antihypertensive meds can be held to allow for permissive HTN for at least 2 weeks. At which point he can be started on a partial dose of lisinopril and then aim for normotension over the next 2 months thereafter. Mild DM: He was also noted to be borderline DM. He was counseled on diabetic nutrition and provided materialfor this. He should follow this up in the snf with his PCP. Patient was evaluated by rehabilitation services and deemed appropriate for rehab. On day of discharge patient was stable. Patient will be discharged on the ambulatory regimen with Neurology Stroke clinic follow-up as outlined below. Operations & Procedures: NONE Consultations: 1. PT/OT/SL Diagnostic Tests & Neuroimaging: Date Study Results 04/05/14 ECG HR 87, NSR CXR OSH CT Head 04/05/14 MRI/A HEAD and NECK 1. 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 2. 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 MRA Neck: The origins of the great vessels and aortic arch no focal stenosis. There is no site of more than minor stenosis within the cervical carotid or vertebral arteries MRA head: The intracranial arteries are of normal course and caliber. 04/06/14 TTE SUMMARY: 1. Regarding the question of embolism, there is a small PFO documented by agitated saline injection with Valsalva. No other potential source of embolism seen. 2. The left ventricular chamber size is normal. There is normal global left ventricular systolic function. The quantitative left ventricular ejection fraction by biplane Stevens's method is 64%. There are no left ventricular segmental wall motion abnormalities. 3. Right ventricular chamber size, wall thickness, and systolic function are within normal limits. 4. Both atria are normal in size. 5. There is no hemodynamically significant valve disease. 04/05/14 Carotid Duplex RIGHT: There is irregular plaque in the proximal internal carotid artery causing <15% stenosis when compared to the more distal internal carotid artery. Tortuous mid/distal ICA. The bifurcation level is in the mid neck. LEFT: There is irregular plaque in the proximal internal carotid artery causing <15% stenosis when compared to the more distal internal carotid artery. Tortuous mid/distal ICA. The bifurcation level is in the mid neck. Vertebral Artery Data: Patent vertebral arteries with normal antegrade Doppler waveforms and velocities bilaterally. Comparison: No previous study in our vascular lab database for comparison. Important Lab Data: Labs on admission: No results found for this basename: wbc, hgb, hct, platelet No results found for this basename: inr, pt, ptt Lab Results Component Value Date CREATININE 1.13 04/05/2014 Lab Results Component Value Date CHLPL 174 04/06/2014 HDL 25* 04/06/2014 CHOLHDL 7.0 04/06/2014 TRIG 198* 04/06/2014 LDLDIRECT 124* 04/06/2014 HA1c: 6.2. Fasting Blood glucose 132 Lab results pending at discharge: none Condition at Discharge: Stable Blood pressure 149/98, pulse 62, temperature 36.7 ??C (98.1 ??F), temperature source Oral, resp. rate 16, height 162.6 cm (5' 4), weight 69.4 kg (153 lb), SpO2 97.00%. Physical exam at discharge: Vitals: Temp: [36.3 ??C (97.3 ??F)-36.9 ??C (98.4 ??F)] Heart Rate: [54-105] Resp: [16-20] BP: (149-178)/(95-117) SpO2: [94 %-98 %] Constitutional: Patient of apparent stated age, no acute distress CV: RRR, S1, S2, no murmur Resp: CTAB Neuro: MS: Alert, oriented, clear language, no dysarthria CN: PERRL, EOMI, visual beck full, trigeminal sensation intact, facial asymmetry, right corner ofmouth droops, hearing intact to whisper, palate elevates symmetrically, tongue protrudes midline, SCM and trap strength intact Motor: Normal bulk and tone. 4/5 strength in right upper extremity, 5/5 strength in left upper extremity and 5/5 strength in left lower extremities, 4/5 strength in right lower extremity, patient reports that his right foot catches on the ground when walking Sensation: Intact to light touch, pain, temperature, and vibration throughout Reflexes: 2+ DTRs, downgoing toes Coordination: Finger to nose intact, rapid alternating movements intact and symmetric Gait: Stable, steady Patient is being discharged to: [facility] swing bed Medications at Discharge: Your Medications As of 04/08/2014 9:32 AM New Medications Dose Details aspirin 325 mg tablet Take 1 tablet by mouth daily. 325 mg Quantity: 30 tablet Refills: 0 atorvastatin 80 mg tablet Commonly known as: LIPITOR Take 1 tablet by mouth every evening. 80 mg Quantity: 30 tablet Refills: 0 clopidogrel 75 mg tablet Commonly known as: PLAVIX Take 1 tablet by mouth daily. 75 mg Quantity: 30 tablet Refills: 0 pantoprazole 40 mg tablet Commonly known as: PROTONIX Take 1 tablet by mouth daily. 40 mg Quantity: 90 tablet Refills: 0 Continued medications with new dosing Dose Details amLODIPine 10 mg tablet Commonly known as: NORVASC Take 1 tablet by mouth daily. Would slowly add this back on after a month from discharge. What changed: doctor's instructions 10 mg Quantity: 30 tablet Refills: 0 chlorthalidone 25 mg tablet Commonly known as: HYGROTEN Take 1 tablet by mouth daily. Would slowly add this back on after a month from discharge. What changed: doctor's instructions 25 mg Refills: 0 lisinopril 40 mg tablet Commonly known as: PRINIVIL;ZESTRIL Take 1 tablet by mouth daily. Would hold off on this for 2 weeks after discharge and start partial dose at that time. What changed: doctor's instructions 40 mg Quantity: 30 tablet Refills: 0 ADR/ALLERGIES: No Known Allergies SECONDARY STROKE PREVENTION: Preventative measure Antithrombotic agent for stroke prevention (aspirin, Plavix) was initiated. if no, why: If documented history of atrial fibrillation/flutter, anticoagulation therapy (warfarin, enoxaparin, dabigatrin) was initiated for stroke prevention. if no, why: no arrythmia Cholesterol-lowering medication was prescribed if no, why: Smoking cessation: If patient smoked within the past year, smoking cessation counseling was provided, and nicotine supplements were offered. if no, why: Education: Stroke information packet provided to patient and/or family, which included personal modifiable risk factors for stroke, stroke warning signs and symptoms, how to activate EMS for stroke, and need for follow-up after discharge. if no, why: Special Instructions for Physicians: - Follow-up imaging needed: NONE - please follow up his elevated glucose and possible DM in the long run - keep off antihypertensives for now and in 2 weeks start partial dose of lisinopril. Would aim forgoal range over the next month or two thereafter. As directed by PCP. Primary Care Provider: UNKNOWN None None No future appointments. * Care Management - Aranza Larios MSW - 04/07/2014 9:10 AM EDT HAYDEE Gonzales Pager # [phone] SANCHEZ met with patient again this morning to begin the process of completing the application for Choices for Care. The patient does not have a detention facility benefit under his Medicaid. [facility] has requested that the patient complete an application for Choices for Care. This would be to insure a payer source in the event the patient needs to be in rehab for longer than the traditional two weeks stay in a swing bed. Patient has deferred the completion of the document to hisbrother. SW has stressed the importance of completing the application and submitting it despite nothaving all the accompanying information that is required. Patient is scheduled for discharge today at 10:00 a. Family has this service writer advisor's contact information and are aware this service writer advisor is available for on-giong support. No further SW interventions anticipated by this service writer advisor at this time. * Plan of Care - Mary Mckeon RN - 04/07/2014 2:37 AM EDT Problem: General Plan of Care Goal: Plan of Care Review Alert, oriented x 4, denies pain, no neuro changes noted, slept fairly, will continue to monitor. * Care Management - Aranza Larios MSW - 04/06/2014 3:21 PM EDT HAYDEE Gonzales Pager # [phone] SANCHEZ referred to patient by [facility] to help patient apply for LTC medicaid Choices for Care. This appearsto be a condition of acceptance by the swing bed in [facility]. SANCHEZ provided a worksheet copy of the Choices for Care application as well as a copy for him to submit as his good copy. This service writer advisor was interrupted multiple times by patient's phone calls, echo cardiogram, etc. Etc. SW will checkwith patient tomorrow to help him complete as much of the application as possible prior to discharge. Family has this service writer advisor's contact information and are aware this service writer advisor is available for on-giong support. SW will continue to follow patient and family to assist with care coordiination and access tosocial services. * Miscellaneous - Provider, Scanning - 04/06/2014 2:55 PM EDT * Initial Assessments - Basil Diez OT - 04/06/2014 11:54 AM EDT Occupational Therapy Evaluation Patient profile: Galo Maldonado is a 54 y.o. male patient of Dr. Julio, Kraig Bill MD, admitted on 04/05/2014 with deep left hemispheric involvement presumably from penetrating artery disease (smallvessel occlusive disease). [facility] guillen radiata. No past medical history on file. No past surgical history on file. Social History: Patient lives with his brother, who is an artist and works from home. 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 (re: moving items from the table into the pink basin with R UE) Objective: Seen today for OT evaluation. Cognitive Status/Behavior: ?? Alert, oriented x 4 ?? Aware of hospital events ?? Participating in exercise program outside of therapy-very motivated Communication: dysarthric but expressing his basic needs; speaks Icelandic and Czech Vision & Perception: ?? Occular ROM intact ?? Able to read sign accurately, denies any vision changes ?? R inattention with +pronator drift and weakness Range of motion, strength, coordination: Hand dominance: right UE status: L UE: WFL, L UE: shoulder flex: 3/5, shoulder ext: 4/5, shoulder abd: 4/5, shoulder add:4/5, elbow flex/ext: 4/5, wrist flex/ext: 4/5, election watcher: 3+/5 initially but 4/5 with increased focus; finger ext: 3-/5; impaired fine and gross motor control, partly r/t inattention; attempted to sign his name with both UE's with decreased accuracy LE status: LLE WFL, R LE: functional weakness, exacerbated with knee bending, impaired ankle coordination with fatigue Sensation: intact to light touch, denies numbness/tingling Activities of Daily Living: ?? Discussed having pt use R UE for 10-25% of each activity based on fatigue level; alternating L and R throughout task for energy conservation and frustration management Self-feeding: difficulty holding/coordination utensil in R hand but able to deliver applesauce to his mouth with extra time; Hygiene grooming: pt brushed his teeth standing at the sink with min A to open containers, extra time with use of R UE, R LE with knee starting to buckle with fatigue from standing for ~7 mins; used R UE for ~50% of task though very fatigued after Upper and lower body dressing and bathing: ?? Able to don/doff R LE sock with use of R UE to stabilize leg and L UE to don/doff sock one-handed; unable to complete with use of RUE to don/doff sock 2/2 impaired pinch/coordination Toileting: not observed, recommend CGA to min A for transfers Functional Mobility: Sit to stand: CGA with FWW, cue for hand placement on walker Ambulation: pt ambulated within room ~15' with FWW and CGA to min A (when fatigued), assistance to stabilize R hand on walker, and tends to drag R LE- needs to compensate to pick pack worker his foot; assist to direct walker Stand to sit: CGA to min A, cues for proper positioning: Balance: good static sitting, static standing with FWW and CGA, CGA to min A to ambulate with FWW, assist to direct walker IADL???s: Recommend assist at this time Endurance: Information taken from last recorded vitals in flowsheet. Last value Range last 8 hrs Heart Rate Heart Rate: 70 Heart Rate: [67-70] Blood Pressure BP: 172/114 mmHg BP: (159-172)/(103-114) SpO2 SpO2: 98 % on RA SpO2: [97 %-98 %] Fatigued with standing-reviewed energy conservation strategies as they relate to his cognitive function as well as physical function; discussed use of R UE for 10--25% of each task depending on fatigue level Pain: no c/o pain during session. Skin: Not assessed Informed Consent: The patient agrees to and understands the OT treatment plan and goals. Education: Patient has been educated on Role of occupational therapy/rehabilitation, Transfers, Assistive device/technique, ADL, Exercise, Positioning, Safety, Precautions/Protocol, Functional Mobility, Activity pacing/Energy conservation, Balance, Recommendations and Discharge planning and verbalizes understanding. Patient status, treatment, and mobility recommendations discussed with nursing. Assessment: Pt presents with L guillen radiata infarct with right-sided weakness and inattention affecting his functional performance. Pt is very motivated to integrate his RUE during functional tasksand requires extra time to complete them. Pt will benefit from ongoing skilled OT, PT and GOVERNMENT PROGRAM MANAGER services, which would best be served in an intensive structured rehab setting. Recommendations: Equipment needs at discharge: ? walker, shower seat Discharge Recommendations: Patient will require 24/7 supervision and assistance. Patient would benefit and tolerate continued daily intensive therapy interventions to maximize functional independence. Other Recommendations: none Goals: To be achieved within 1 week, by 04/13/14: 1. Patient will copnsistenly complete hygiene tasks with use of R UE for at least 50% of the task. 2. Patient will be min A for lower body dressing with use of R UE for at least 50% of task. 3. Patient will ambulate to/from bathroom for toileting with least restrictive device and SBA to CGA. 4. Patient will feed self with only occasional assist for container management. 5. Patient will be independent for R UE exercise program. Plan: Pt to be seen 2-4 times per week for therapy including Role of occupational therapy/rehabilitation, Transfers, Assistive device/technique, Adaptive equipment training, ADL, Exercise, Positioning, Safety, Precautions/Protocol, Functional Mobility, Activity pacing/Energy conservation, Home Management, Balance, Recommendations, Family training and Discharge planning Eval Date: 04/06/2014 Total time spent with patient: 55 minutes for initial evaluation Total timed interventions: 0 minutes Pager: [phone] BASIL DIEZ OT 04/06/2014 Occupational Therapy Rehabilitation Department * Initial Assessments - Tabitha Karen Aidan, PT - 04/06/2014 11:36 AM EDT Physical Therapy Neuro Evaluation Patient profile: Pt is a 54 y.o male adm 04/05/[address] Julio, Kraig Bill MD . Pt with deep left hemispheric involvement presumably from penetrating artery disease (small vessel occlusive disease). [facility] left guillen radiata. . PMH: No past medical history on file. No past surgical history on file. Social History: Patient lives with brother in [facility] in 2 level home with 1 step without rail to enter. 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 Equipment at home: did not ask Precautions/Special Considerations: high fall risk, up with A, labetol for SBP> 220, right foot drop Staff Communication/Mobility Recommendations: high fall risk, amb with FWW and min A- cRajendrag S: I had a stroke O: Pt seen for initial evaluation Vitals:172/114, at rest, 204/146, after amb, 98% on RA, 70 Last value Range last 8 hrs Temperature Temp: 36.8 ??C (98.2 ??F) Temp: [36.6 ??C (97.9 ??F)-36.8 ??C (98.2 ??F)] Heart Rate Heart Rate: 70 Heart Rate: [67-70] Blood Pressure BP: 172/114 mmHg BP: (159-172)/(103-114) Respiratory Rate Resp: 16 Resp: [16] SpO2 SpO2: 98 % SpO2: [97 %-98 %] Communication: dysarthric Mental Status/Behavior: A+O Pain: denies pain Sensation: intact Vision/Perception: appears intact Skin/Soft Tissue: WNL ROM: WNL Neuromuscular: left 5/5 Right UE: sh flex 3/5, abd 3/5, elbow flex 4/5, wrist 3/5, hand ext 3-/5, flex 3/5 Right LE: hip flex 4-/5, knee ext 4/5, DF: 1/5 Bed Mobility: sup- sit with min A Balance: Sitting balance: static: good Standing balance: able to stand unsupported with close S Dynamic/gait balance: unsteady Transfers: sit- stand with min A, bed- chair with min A and FWW Gait: Pt amb 150 feet with fWW and min A-c.g, foot drop on right Informed Consent: The patient understands and agrees to the PT treatment plan and goals. Education: The patient has been educated on Bed mobility, Transfers, Assistive device/technique, Precautions/protocol, Gait , Role of therapy, Balance and Discharge planning and needs reinforcement. understanding Assessment: Pt is a 54 yo M with deep left hemispheric involvement presumably from penetrating artery disease (small vessel occlusive disease). [facility] left guillen radiata. He presents with dysarthria, right hemiparesis, resulting in impaired balance and funct status. Pt was able to amb with a fWW and min A. He has a right foot drop and is at high risk to fall. Pt will benefit from ongoing therapeutic interventions as outlined below to achieve the following goals Goals: Pt will achieve the following by DC 1. Demonstrate knowledge of safety limitations and precautions and will appropriately request assistance for functional activities and to mobilize. 2. Demonstrate understanding and carry over of appropriate exercises. 3. Perform bed mobility I 4. Demonstrate midline sitting balance with S while performing funct tasks 5. Perform sit <> stand transfer with S 6. Ambulate 150 feet with device and close S 7. Ambulate up/down min 8 step/stairs with S 8. Family or caregiver to demonstrate understanding of therapeutic interventions including safe andcorrect assistive techniques, positioning to decrease risk of skin breakdown, contractures, and loss of range of motion to support the care of the patient. Plan: Pt to be seen 4-5x per week for therapy including Bed mobility, Transfers, Assistive device/technique, Stairs, Positioning, Safety , Precautions/protocol, Equipment use, Gait , Role of therapy, Balance and Discharge planning and pt /family/caregiver education. Equipment needs: Rolling walker at present, may need right AFO Discharge Recommendations: Patient will require 24/7 supervision and assistance. Patient would benefit and tolerate continued daily intensive therapy interventions to maximize functional independence. No other consults recommended at this time Total time spent with patient: 32 minutes Total timed interventions: 0 minutes Pager: [phone] KAREN FAJARDO PT 04/06/2014 Physical Therapy Rehabilitation Department * Care Management - Florina Wesley RN - 04/06/2014 11:33 AM EDT Office of Care Management Clinical Transformation Specialist (CRC) Florina Wesley RN, BSN -CRC Neurology/ENT Voice Mail [phone] Pager [phone] Initial Assessment: Room: 518 Attending: Dr. Julio Patient/family has agreed to CRC services. Reason for Hospitalization: 54 y.o. patient presenting with dysarthria, right facial droop, right hand weakness, right foot weakness. Social/Family Services: he says that he has a very supportive family Advance Directives: not on file, but have given him an AD booklet Consults: PT/OT/GOVERNMENT PROGRAM MANAGER WET FINISHER referral: have asked WET FINISHER to see patient Insurance Coverage/: Medicaid Potential Discharge Needs: Chart reviewed. Met with patient. He lives with his brother, his sister and parents live nearby and he feels that he will have plenty of help at d/c. We did discuss discharge. He feels that it would be villalobos for him to go to rehab at d/c. ?? Provided [facility], Office of Care Management letter from the Heating Equipment Repairer pertaining to rehab referrals.. ?? Reviewed levels of rehab including SNF, swing, acute and LTAC. ?? A list that serves the geographical area which the patient resides or the geographical area requested has been provided through [employer] search. ?? Requested patient/family provide at least three choices for referral. Patient/family request referrals to [facility] swing bed. Anticipated Barriers to Discharge: the team is feeling that he may be medically ready tomorrow. (patient has been discussed at daily multidisciplinary rounds) Plan: will continue to follow and assist with d/c planning and will ask the SNF office to please begin the referral process. .He would like for his family to transport him. * Plan of Care - Mary Mckeon RN - 04/06/2014 3:07 AM EDT Problem: Fall/Trauma/Injury Risk (Adult, Obstetrics) Goal: Identify Signs and Symptoms and Related Risk Factors Signs and symptoms and related risk factors are identified upon initiation of Human Response Clinical Practice Guideline (CPG) Alert, oriented x 4, VSS, PERRL, no complaints of pain, no neuro changes noted, sleeping between care, will continue to monitor. Bleeding precaution maintained. * Med Student H&P - Quinton Regalado - 04/05/2014 6:51 PM EDT Neurology Stroke Admission History and Physical Patient name: Galo Maldonado Date of :1960 PCP: UNKNOWN (reported as Madeline Mehta in [place], [place]) CC: Right arm and right leg numbness, slurred speech Onset of symptoms or last seen normal: Saturday night, 3 days ANTI TANK MISSILEMAN Seen at [facility] on 04/04/14, left AMA and went again to [facility] on 04/05/14 before transfer Arrived to [facility] at 4:30pm 04/05/14 HPI: Galo Maldonado is a 54 y.o. 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 He also could notmove his arm very well, and the 2 days ago he developed worsening symptoms, with his right foot where he felt numbness in his toes and could not move them, however he could still stand. He was also at work on that same day and felt that his words started slurring. That night he went to bed, but climbed into bed with difficulty since his left arm was also weak. The day prior to admission, since the symptoms were not improving and slurring was getting worse, he decided to go to [facility] for evaluation. While at [facility], he felt that they did not pay attention/deliver proper care and left that night AMA. The next morning (day of admission), since the symptoms were still present, he went back to [facility] for evaluation and was transferred to [facility] for evaluation of left hemispheric infarct stroke. He reports that his symptoms today are the same as yesterday (right handed finger numbness/tingling, rightarm weakness, right foot weakness, slurred speech), with no improvement. He has never had these symptoms before, he denies any trauma, sick contacts. Reports occasionally misses home doses of antihypertensives (amlodipine 10mg, lisinopril 40mg, chlorthalidone 25mg), once or twice a week. Also takes aspirin occassionally, took 325mg yesterday night, sometimes alternates between 81mg and 325mg. PMH: HTN PSH: None Prescriptions prior to admission Medication Sig Dispense Refill ??? amLODIPine (NORVASC) 10 mg tablet Take 10 mg by mouth daily. ??? chlorthalidone (HYGROTEN) 25 mg tablet Take 25 mg by mouth daily. ??? lisinopril (PRINIVIL;ZESTRIL) 40 mg tablet Take 40 mg by mouth daily. Allergies: No Known Allergies Family History: HTN: Mother, father, brother NH: father 60s y/o No history of stroke, cancer 3 other sisters, unsure of their health status, one with alcoholism History Social History Narrative ??? 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 - Does not smoke - Social drinking only - No illicit drugs Review of systems: Constitutional: Denies fevers, sweats, chills, weight loss Eyes: No vision changes, no diplopia, no blurry vision ENT: No rhinorrhea or pharyngitis, no meningismus, no hearing issues CV: No chest pain or palpitations Resp: No cough, no shortness of breath GI: No nausea, vomiting, diarrhea or constipation : No dysuria, no incontinence Heme: No bleeding or bruising Endo: No diabetes or thyroid disease Neuro: See HPI Psych: No depression, normal sleep NIH Stroke Scale: NIH Stroke Scale at Initial Evaluation: 1.a. Level of consciousness: 0-Alert 1-Not alert, but arousable with minimal stimulation 2-Not alert, requires repeat stimulation to attend 3-Coma 1.b. Ask patient the month and their age: 0-Answers both correctly 1-Answers one correctly 2-Both incorrect 1.c. Ask patient to open and close eyes: 0-Obeys both correctly 1-Obeys one correctly 2-Both incorrect 2. Best gaze (horizontal eye movement): 0-Normal 1-Partial gaze palsy 2-Forced deviation 3. Visual field testin-No visual field loss 1-Partial hemianopia 2-Complete hemianopia 3-Bilateral hemianopia (blind including cortical blindness) 4. Facial paresis (Ask patient to show teeth or raise eyebrows and close eyes tightly): 0-Normal symmetrical movement 1-Minor paralysis (flattened nasolabial fold, asymmetry on smiling) 2-Partial paralysis (total or near paralysis of lower face) 3-Complete paralysis of one or both sides (absence of facial movement in the upper and lower face) 5. Motor function right arm: 0-Normal (extends arm 90 degrees for 10 seconds without drift) 1-Drift 2-Some effort against gravity 3-No effort against gravity 4-No movement 9-Untestable (Joint fused or limb amputated) 5. Motor function- left arm: 0-Normal (extends arm 90 degrees for 10 seconds without drift) 1-Drift 2-Some effort against gravity 3-No effort against gravity (but baseline) 4-No movement 9-Untestable (Joint fused or limb amputated) 6. Motor function right le-Normal (extends leg 30 degrees for 5 seconds without drift) 1-Drift 2-Some effort against gravity 3-No effort against gravity 4-No movement 9-Untestable (Joint fused or limb amputated) 6. Motor function-left le-Normal (extends leg 30 degrees for 5 seconds without drift) 1-Drift 2-Some effort against gravity 3-No effort against gravity 4-No movement 9-Untestable (Joint fused or limb amputated) 7. Limb ataxia: 0-No ataxia 1-Present in one limb 2-Present in two limbs 8. Sensory (Use pinprick to test arms, legs, trunk and face compare side to side): 0-Normal 1-Mild to moderate decrease in sensation 2-Severe to total sensory loss 9. Best language (describe picture, name items, read sentences): 0-No aphasia 1-Mild to moderate aphasia 2-Severe aphasia 3-Mute 10. Dysarthria (read several words): 0-Normal articulation 1-Mild to moderate slurring of words 2-Near unintelligible or unable to speak 9-Intubated or other physical barrier 11. Extinction and inattention: 0-Normal 1-Inattention or extinction to bilateral simultaneous in one of the sensory modalities 2-Severe shailesh-inattention or shailesh-inattention to more than one modality TOTAL SCORE: 3 Physical Exam: Vitals: Temp: [36.9 ??C (98.4 ??F)] Heart Rate: [121] Resp: [18] BP: (172-199)/(120-132) SpO2: [97 %] Constitutional: Patient of apparent stated age, well nourished, well developed, no acute distress, conversational, lying in bed Neck: Supple, no meningismus, no carotid bruit CV: RRR, normal S1, S2, no murmur Resp: CTAB, normal effort on room air Abd: Soft, nontender, nondistended Ext: No edema. No bony deformity Neuro: MS: AOx3, slurred speech CN: PERRL, EOMI, visual beck full, trigeminal sensation intact, hearing intact to whisper, palateelevates symmetrically, tongue protrudes midline, SCM and trap strength intact Mild facial droop on right side Motor: Strength: 5/5 upper left extremity 4/5 upper right extremity Squeeze strength on right side 4/5 5/5 bilateral lower extremeties Sensation: Intact to light touch, pain, temperature, and vibration throughout Reflexes: 2+ DTRs, downgoing toes Coordination: Finger to nose intact (slower with using R hand), rapid alternating movements intact and symmetric Gait: Favoring right side, observed when walking to bathroom Labs: Recent Results (from the past 24 hour(s)) CBC (WITH DIFF) Component Value Range WBC 8.4 4.0 - 10.0 x10(3)/mcL RBC 5.79 4.63 - 6.08 x10(6)/mcL Hemoglobin 17.9 (*) 13.7 - 17.5 gm/dL Hematocrit 48.5 40.0 - 51.0 % MCV 83.8 79.0 - 92.0 fL MCH 30.9 25.6 - 32.2 pg MCHC 36.9 (*) 32.0 - 36.5 gm/dL Platelets 199 145 - 370 x10(3)/mcL RDWSD 39.8 35.0 - 46.0 fL RDWCV 13.3 10.9 - 14.4 % MPV 10.9 9.0 - 12.0 fL BASIC METABOLIC PANEL (NON-FASTING) Component Value Range Glucose Lvl 147 60 - 199 mg/dL BUN 13 10 - 20 mg/dL Creatinine 1.13 0.80 - 1.50 mg/dL Sodium 141 135 - 145 mmol/L Potassium 3.7 3.5 - 5.0 mmol/L Chloride 102 98 - 107 mmol/L CO2 21 (*) 22 - 31 mmol/L Anion Gap 18 (*) 5 - 15 mmol/L Calcium 10.3 8.5 - 10.5 mg/dL Estimated GFR >60 >=60 PHOSPHORUS Component Value Range Phosphorus 3.2 2.5 - 4.5 mg/dL MAGNESIUM Component Value Range Magnesium 0.94 0.69 - 1.07 mmol/L HEPATIC FUNCTION PANEL Component Value Range Total Protein 8.2 6.4 - 8.3 gm/dL Albumin 4.9 3.2 - 5.2 gm/dL AST 16 0 - 39 unit/L ALT 19 0 - 55 unit/L Alk Phos 136 (*) 40 - 120 unit/L Total Bilirubin 1.2 0.2 - 1.3 mg/dL Bili, Direct 0.2 0.0 - 0.3 mg/dL PROTHROMBIN TIME Component Value Range PT 14.2 12.0 - 15.0 sec INR 1.1 0.9 - 1.1 APTT Component Value Range PTT 28 25 - 35 sec DIFFERENTIAL, AUTOMATED Component Value Range Neutrophils % 74.3 (*) 34.0 - 71.0 % Neutr Abs (ANC) 6.22 1.50 - 6.30 x10(3)/mcL Lymphocytes % 17.7 (*) 19.0 - 53.0 % Lymphocytes Abs 1.5 1.0 - 3.6 x10(3)/mcL Monocytes % 6.9 4.0 - 13.0 % Monocyte Abs 0.6 0.2 - 1.0 x10(3)/mcL Eosinophils % 0.6 0.0 - 7.0 % Eosinophils Abs 0.0 0.0 - 0.5 x10(3)/mcL Basophils % 0.1 0.0 - 2.0 % Basophils Abs 0.0 0.0 - 0.2 x10(3)/mcL Immature Gran % 0.40 0.00 - 0.66 % Elizabeth Gran Abs 0.03 0.00 - 0.05 x10(3)/mcL Diagnostic Tests and Imaging: All pending: TTE Cerebrovascular U/S MRI brain MRA head/neck Assessment: Galo Maldonado is a 54 y.o. male presenting with right hand weakness, right foot numbness, right sided facial droop, dysarthria for past three days. The symptoms localize to left hemisphere. 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 Thrombolytics were/were not considered because he is not in the time frame for treatment . A dysphagia screen was/was not performed at the bedside. Pt is currently stable, we will continue to monitor BP, since elevated on admission, treat as needed and further evaluation with imaging/labs as detailed below for determining etiology. Plan: - Admit to Neurology - q4 hour neuro check, vitals - Permissive hypertension, labetalol, hydralazine as needed for SBP >220, enalapril prn - Telemetry monitoring - Imaging: CT head from OSH, will obtain MRI brain, MRA head/neck - TTE pending, EKG, cerebrovascular U/S - Aspirin 325 mg po now and daily - Start atorvastatin 80mg - Order Ha1c, watch sugars, since previously high, LDL, HDL, TG, glucose - Diet: Healthy choices menu - PT/OT consult - DVT ppx: lovenox, SCds - GI ppx: RBOs - Tylenol prn pain or fever - Code status: FULL CODE [place], [place]-4 Pager #[phone] * Consult Note - Kraig Julio MD - 04/05/2014 4:18 PM EDT Neurology Stroke Admission History and Physical Patient name: Galo Maldonado Date of :1960 PCP: Madeline Mehta, of [facility] CC: Right arm numbness Onset of symptoms or last seen normal: Started Saturday night, 04/02/14, three days ago Patient evaluated at [facility] Saturday04/04/14 but left AMA, then returned the morning of Saturday04/05/14 [facility] direct transfer: arrived at 16:30 to [facility] HPI: Galo Maldonado is a 54 y.o. with history of hypertension who is transferred directly to neurology from [facility] emergency following onset of right finger, hand, and arm numbness and weakness and slurred speech which started three days ago. 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 Two days ago the patient developed someslurring of speech and weakness in his right toes and foot as well. He went to bed that night stating that he felt clumsy climbing into bed. Patient went to [facility] yesterday for evaluation of the continuation of these same symptoms, but left against medical advice because he felt they were not takingproper care of him. He was planning to go to [facility] this AM, but decided to go back to [facility] this morning because he thought that there would be a different team of caregivers on duty at [facility]. The patient was worked up there and was admitted directly to [facility] neurology for left deep hemispheric infarct type stroke. At present the patient endorses right finger tingling which extends up his arm, right hand and arm weakness, right foot weakness, and some dysarthria. PMH: Hypertension PSH: No surgeries Home Medications: Amlodipine 10 Lisinopril 40 Hydrochlorothiazide 25 mg Aspirin occasionally (last was 325 mg yesterday) Allergies: No Known Allergies Family Medical History Father with NH in 60's, DMII in dad, HTN mom and dad. Sister with alcoholism. 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 No smoking, alcohol, or drugs. History Social History Narrative ??? No narrative on file Review of systems: Constitutional: No fevers or chills Eyes: No vision changes, no diplopia, no blurry vision ENT: No rhinorrhea or pharyngitis, no meningismus CV: No chest pain or palpitations Resp: No cough, no shortness of breath GI: No nausea, vomiting, diarrhea or constipation : No dysuria, no incontinence Heme: No bleeding or bruising Endo: No diabetes or thyroid disease Neuro: See HPI Psych: No depression, normal sleep [x] Review of systems otherwise negative NIH Stroke Scale: NIH Stroke Scale at Initial Evaluation: 1.a. Level of consciousness: 0-Alert 1-Not alert, but arousable with minimal stimulation 2-Not alert, requires repeat stimulation to attend 3-Coma 1.b. Ask patient the month and their age: 0-Answers both correctly 1-Answers one correctly 2-Both incorrect 1.c. Ask patient to open and close eyes: 0-Obeys both correctly 1-Obeys one correctly 2-Both incorrect 2. Best gaze (horizontal eye movement): 0-Normal 1-Partial gaze palsy 2-Forced deviation 3. Visual field testin-No visual field loss 1-Partial hemianopia 2-Complete hemianopia 3-Bilateral hemianopia (blind including cortical blindness) 4. Facial paresis (Ask patient to show teeth or raise eyebrows and close eyes tightly): 0-Normal symmetrical movement 1-Minor paralysis (flattened nasolabial fold, asymmetry on smiling) 2-Partial paralysis (total or near paralysis of lower face) 3-Complete paralysis of one or both sides (absence of facial movement in the upper and lower face) 5. Motor function right arm: 0-Normal (extends arm 90 degrees for 10 seconds without drift) 1-Drift 2-Some effort against gravity 3-No effort against gravity 4-No movement 9-Untestable (Joint fused or limb amputated) 5. Motor function- left arm: 0-Normal (extends arm 90 degrees for 10 seconds without drift) 1-Drift 2-Some effort against gravity 3-No effort against gravity (but baseline) 4-No movement 9-Untestable (Joint fused or limb amputated) 6. Motor function right le-Normal (extends leg 30 degrees for 5 seconds without drift) 1-Drift 2-Some effort against gravity 3-No effort against gravity 4-No movement 9-Untestable (Joint fused or limb amputated) 6. Motor function-left le-Normal (extends leg 30 degrees for 5 seconds without drift) 1-Drift 2-Some effort against gravity 3-No effort against gravity 4-No movement 9-Untestable (Joint fused or limb amputated) 7. Limb ataxia: 0-No ataxia 1-Present in one limb 2-Present in two limbs 8. Sensory (Use pinprick to test arms, legs, trunk and face compare side to side): 0-Normal 1-Mild to moderate decrease in sensation 2-Severe to total sensory loss 9. Best language (describe picture, name items, read sentences): 0-No aphasia 1-Mild to moderate aphasia 2-Severe aphasia 3-Mute 10. Dysarthria (read several words): 0-Normal articulation 1-Mild to moderate slurring of words 2-Near unintelligible or unable to speak 9-Intubated or other physical barrier 11. Extinction and inattention: 0-Normal 1-Inattention or extinction to bilateral simultaneous in one of the sensory modalities 2-Severe shailesh-inattention or shailesh-inattention to more than one modality TOTAL SCORE: 3 Physical Exam: Vitals: Temp: [36.9 ??C (98.4 ??F)] Heart Rate: [121] Resp: [18] BP: (199)/(132) SpO2: [97 %] Fingerstick glucose: 167 at OSH Constitutional: Patient of apparent stated age, well nourished, well developed, no acute distress, warm cheeks Neck: Supple, no meningismus, no carotid bruit CV: RRR, S1, S2, no murmur Resp: CTAB Abd: Soft, nontender, nondistended Ext: No edema. No bony deformity Neuro: MS: Alert, oriented, clear language, no dysarthria CN: PERRL, EOMI, visual beck full, trigeminal sensation intact, facial asymmetry, right corner ofmouth droops, hearing intact to whisper, palate elevates symmetrically, tongue protrudes midline, SCM and trap strength intact Motor: Normal bulk and tone. 4/5 strength in right upper extremity, 5/5 strength in left upper extremity and 5/5 strength in bilateral lower extremities Sensation: Intact to light touch, pain, temperature, and vibration throughout Reflexes: 2+ DTRs, downgoing toes Coordination: Finger to nose intact, rapid alternating movements intact and symmetric Gait: Stable, steady Labs: No results found for this or any previous visit (from the past 24 hour(s)). Diagnostic Tests and Imaging: Assessment: Galo Maldonado is a 54 y.o. patient presenting with dysarthria, right facial droop, right hand weakness, right foot weakness. The symptoms localize to right arm, right mouth, and right foot. The likely etiology of this ischemic stroke is yet to be determined. Thrombolytics were/were not considered because patient is well outside of window of opportunity for treatment. A dysphagia screen was not performed at the bedside. Standard stroke admit labs are pending. CT shows deep left hemispheric involvement presumably from penetrating artery disease (small vesselocclusive disease). Patient has been stable since yesterday, has had symptoms for three days now. Full workup involving labs, imaging, and treatment with proper medication will be initiated. Plan: -Admit to Neurology -q4 hour neuro checks -q4 hour vitals -Permissive hypertension, labetalol, hydralazine as needed for SBP >220 -Telemetry monitoring -Labs: pending -Imaging: CT Head from OSH, MRI brain, MRA head and neck -Echocardiogram pending -Aspirin 325 mg po now and daily -Lipitor 80 mg -NPO until speech evaluation -PT/OT consult -DVT ppx: lovenox, SCDs -GI ppx: RBOs -Tylenol prn pain or fever -Code status: FULL Neurology Staff Note I have reviewed the above resident's history during the visit and I agree with the details as written. My physical examination confirms the resident's findings. The assessment and plan were formulated in discussion with me at the time of the visit and I agree with them as documented. He has been stable since yesterday and has a pure motor syndrome consistent with the infarction seen on the CT. Likely due to penetrating artery disease assoc with HTN and possible metabolic syndromeor mild DM not dx previously. I have examined the patient myself and personally reviewed all studies. In addition, I certify thatI am a [facility] credentialed attending provider with admitting privileges and that the patient meets or has met medical necessity to require an inpatient IPI level of care meeting a minimum of two midnights or is on the CMS inpatient only procedure list (status C) due to: - neurologic instability requiring neurologic checks at least every 4 hours. - acute stroke requiring neurologic checks at least every 4 hours. - documented in this encounter Plan of Treatment Not on file documented as of this encounter Procedures Procedure Name Priority Date/Time Associated Diagnosis Comments EPIDEMIOLOGY INVESTIGATOR SCAN 04/10/2014 9:01 AM EDT ECHOCARDIOGRAM TRANSTHORACIC Routine 04/06/2014 5:28 PM EDT Cerebral infarction TRIGLYCERIDE Routine 04/06/2014 5:20 AM EDT LDL CHOLESTEROL, DIRECT Routine 04/06/20 14 5:20 AM EDT HDL/CHOL PROFILE Routine 04/06/2014 5:20 AM EDT HEMOGLOBIN A1C Routine 04/06/2014 5:20 AM EDT GLUCOSE, FASTING Routine 04/06/2014 5:20 AM EDT EKG 12-LEAD STAT 04/05/2014 10:17 PM EDT Cerebral infarction MRI HEAD ANGIOGRAM WO CONTRAST Routine 04/05/2014 9:55 PM EDT MRI BRAIN WO CONTRAST Routine 04/05/2014 9:55 PM EDT MRI NECK ANGIOGRAM WWO CONTRAST Routine 04/05/2014 9:55 PM EDT DIFFERENTIAL, AUTOMATED STAT 04/05/20 5:33 PM EDT APTT STAT 04/05/2014 5:33 PM EDT PROTHROMBIN TIME STAT 04/05/2014 5:33 PM EDT CBC (WITH DIFF) STAT 04/05/2014 5:33 PM EDT PHOSPHORUS STAT 04/05/2014 5:33 PM EDT MAGNESIUM STAT 04/05/2014 5:33 PM EDT HEPATIC FUNCTION PANEL STAT 4 5:33 PM EDT BASIC METABOLIC PANEL STAT 04/05/2014 5:33 PM EDT CAROTID DUPLEX, BILATERAL STAT 04/05/2014 4:36 PM EDT documented in this encounter Results * SCAN DOC: EPIDEMIOLOGY INVESTIGATOR (04/10/2014 9:01 AM EDT) Anatomical Region Laterality Modality Other Narrative 04/10/2014 9:04 AM EDT Procedure Note Provider, Scanning - 04/10/2014 9:01 AM EDT Scanning Provider MEDIA MGR SCAN EXT O RDR/RSLT * Echocardiogram Transthoracic(Leb) (04/06/2014 5:28 PM EDT) EF 64 HEARTLAB SYSTEM Anatomical Region Laterality Modality Other 04/07/2014 Narrative 04/07/2014 9:21 AM EDT Procedure: ? Transthoracic Echocardiogram Patient: ? ERICA ROSENTHAL ? (Age): 1960(54) Med Rec#: ?[id number] ? Sex: ?M ? Site Loc: ?[facility] ? Ht / Wt: ??162(cm)/69(kg) Pt. Loc: ? Adult Floor ?BSA: ?1.76 Study Date: ?04/06/2014 ? Pt. Type: Inpatient Tape: ? Referring: Kraig Julio Referring: DERRICK OCHOA L Supervisor Whipped Topping: Jordana Hart Book Publisher: Meghna Jimenez Diagnosis:CPT Code(s): ??Echo Full (06739), ??Spectral Doppler (65190), Color Doppler (59888), ??Saline Contrast (000), Indication(s): ??CVA/TIA Rhythm: HR ?BP ?163/107 SUMMARY: 1. Regarding the question of embolism, there is a small PFO documented by agitated saline injection with Valsalva. No other potential source of embolism seen. 2. The left ventricular chamber size is normal. There is normal global left ventricular systolic function. The quantitative left ventricular ejection fraction by biplane Stevens's method is 64%. There are no left ventricular segmental wall motion abnormalities. 3. Right ventricular chamber size, wall thickness, and systolic function are within normal limits. 4. Both atria are normal in size. 5. There is no hemodynamically significant valve disease. FINDINGS: Left Ventricle ?The left ventricular chamber size is normal. ?Asymmetric septal wall hypertrophy is observed. ?There is normal global left ventricular systolic function. ?The quantitative left ventricular ejection fraction by biplane Stevens's method is 64%. ?There are no left ventricular segmental wall motion abnormalities. ?Doppler assessment is consistent with normal left sided filling pressure. Left Atrium ?The left atrium is normal in size. ?There is a possible patent foramen ovale demonstrated by color Doppler. Right Ventricle ?Right ventricular chamber size, wall thickness, and systolic function are within normal limits. ?Pulmonary artery hypertension could not be assessed due to inadequate tricuspid regurgitation jet. ?The estimated right atrial pressure is 3 mmHg. Right Atrium ?The right atrium is normal in size. Aortic Valve ?The aortic valve is tricuspid. ?Systolic excursion of the aortic valve is normal. ?There is aortic annular calcification. ?There is no evidence of aortic valve stenosis. ?There is no evidence of aortic regurgitation. Mitral Valve ?The mitral valve appears normal in structure and function. ?There is trace mitral regurgitation present. Tricuspid Valve ?The tricuspid valve appears normal in structure and function. ?There is trace tricuspid regurgitation present. Pulmonic Valve ?The pulmonic valve appears normal in structure and function. ?There is trace pulmonic regurgitation present. Pericardium ?The pericardium appears normal and there is no evidence of a pericardial effusion. Aorta ?The aortic root is normal in size. ?There is mild dilatation of the ascending aorta. Pulmonary Artery ?The main pulmonary artery appears normal. Venous ?The inferior vena cava appears normal in size. ?There is a greater than 50% respiratory change in the inferior vena cava dimension. Misc ?See remainder of report for additional findings. ?Two-dimensional echo, spectral Doppler and color Doppler performed. Wall Motion: Segment Name ?Rest ? Base-Anteroseptal ?? Normal ? Base-Anterior ? Normal ? Base-Anterolateral ??Normal ? Base-Posterolateral Normal ? Base-Inferior ? Normal ? Base-Inferoseptal ?? Normal ? Mid-Anteroseptal ?Normal ? Mid-Anterior ?Normal ? Mid-Anterolateral ?? Normal ? Mid-Posterolateral ??Normal ? Mid-Inferior ?Normal ? Mid-Inferoseptal ?Normal ? Gardiner-Septal ? Normal ? Gardiner-Anterior ? Normal ? Gardiner-Lateral ?Normal ? Gardiner-Inferior ? Normal ? Gardiner-Tip ?Normal ? Chambers ?Value ?Units (Range) ? EF ??Bi-p Simp ? 64 ? % (55 to 80) ? IVSd 2D ? 1.7 ?cm ? LVIDd 2D ?4.2 ?cm ? PWd 2D ?1.1 ?cm ? LVIDs 2D ?2.6 ?cm ? LVFS 2D ? 36 ? % ? LA area ? 16.5 ? cm2 (<21) ? RA area ? 15.5 ? cm2 (<18) ? Ao root ? 3.4 ?cm (2.1 to 3.6) ? Asc Ao ?3.9 ?cm (2 to 3.5) ? Mitral Valve ?Value ?Units (Range) ? E peak ?0.52 ? m/sec ? E/A ratio ? 0.6 ?ratio ? MVDT ?320 ?msec ? E1 ?0.04 ? m/sec ? E/E1 ?13 ? ratio ? Tricuspid/Pulmonic Valves ?Value ?Units (Range) ? RAP ? 3 ?mmHg ? This report has been electronically signed by: Adan Mares M.D. ? 04/07/2014 09:20:19 Images reviewed and interpretation verified [facility] Cardiac Ultrasound Laboratory Procedure Note Adan Mares MD - 04/07/2014 Procedure: Transthoracic Echocardiogram Patient: ERICA EDWARD(Age): 1960(54) Med Rec#: [id number] Sex: M Site Loc: [facility] [place] Ht / Wt: 162(cm)/69(kg) Pt. Loc: Adult Floor BSA: 1.76 Study Date: 04/06/2014 Pt. Type: Inpatient Tape: Referring: Kraig Julio Referring: DERRICK OCHOA L Supervisor Whipped Topping: Jordana Hart Book Publisher: Meghna Jimenez Diagnosis:CPT Code(s): Echo Full (54944), Spectral Doppler (65507), Color Doppler (45649), Saline Contrast (000), Indication(s): CVA/TIA Rhythm: HR BP 163/107 SUMMARY: 1. Regarding the question of embolism, there is a small PFO documented by agitated saline injection with Valsalva. No other potential source of embolism seen. 2. The left ventricular chamber size is normal. There is normal global left ventricular systolic function. The quantitative left ventricular ejection fraction by biplane Stevens's method is 64%. There are no left ventricular segmental wall motion abnormalities. 3. Right ventricular chamber size, wall thickness, and systolic function are within normal limits. 4. Both atria are normal in size. 5. There is no hemodynamically significant valve disease. FINDINGS: Left Ventricle The left ventricular chamber size is normal. Asymmetric septal wall hypertrophy is observed. There is normal global left ventricular systolic function. The quantitative left ventricular ejection fraction by biplane Stevens's method is 64%. There are no left ventricular segmental wall motion abnormalities. Doppler assessment is consistent with normal left sided filling pressure. Left Atrium The left atrium is normal in size. There is a possible patent foramen ovale demonstrated by color Doppler. Right Ventricle Right ventricular chamber size, wall thickness, and systolic function are within normal limits. Pulmonary artery hypertension could not be assessed due to inadequate tricuspid regurgitation jet. The estimated right atrial pressure is 3 mmHg. Right Atrium The right atrium is normal in size. Aortic Valve The aortic valve is tricuspid. Systolic excursion of the aortic valve is normal. There is aortic annular calcification. There is no evidence of aortic valve stenosis. There is no evidence of aortic regurgitation. Mitral Valve The mitral valve appears normal in structure and function. There is trace mitral regurgitation present. Tricuspid Valve The tricuspid valve appears normal in structure and function. There is trace tricuspid regurgitation present. Pulmonic Valve The pulmonic valve appears normal in structure and function. There is trace pulmonic regurgitation present. Pericardium The pericardium appears normal and there is no evidence of a pericardial effusion. Aorta The aortic root is normal in size. There is mild dilatation of the ascending aorta. Pulmonary Artery The main pulmonary artery appears normal. Venous The inferior vena cava appears normal in size. There is a greater than 50% respiratory change in the inferior vena cava dimension. Misc See remainder of report for additional findings. Two-dimensional echo, spectral Doppler and color Doppler performed. Wall Motion: Segment Name Rest Base-Anteroseptal Normal Base-Anterior Normal Base-Anterolateral Normal Base-Posterolateral Normal Base-Inferior Normal Base-Inferoseptal Normal Mid-Anteroseptal Normal Mid-Anterior Normal Mid-Anterolateral Normal Mid-Posterolateral Normal Mid-Inferior Normal Mid-Inferoseptal Normal Gardiner-Septal Normal Gardiner-Anterior Normal Gardiner-Lateral Normal Gardiner-Inferior Normal Gardiner-Tip Normal Chambers Value Units (Range) EF Bi-p Simp 64 % (55 to 80) IVSd 2D 1.7 cm LVIDd 2D 4.2 cm PWd 2D 1.1 cm LVIDs 2D 2.6 cm LVFS 2D 36 % LA area 16.5 cm2 (<21) RA area 15.5 cm2 (<18) Ao root 3.4 cm (2.1 to 3.6) Asc Ao 3.9 cm (2 to 3.5) Mitral Valve Value Units (Range) E peak 0.52 m/sec E/A ratio 0.6 ratio MVDT 320 msec E1 0.04 m/sec E/E1 13 ratio Tricuspid/Pulmonic Valves Value Units (Range) RAP 3 mmHg This report has been electronically signed by: Adan Mares M.D. 04/07/2014 09:20:19 Images reviewed and interpretation verified [facility] Cardiac Ultrasound Laboratory Kraig Julio MD ECHO ORDERABLES * (ABNORMAL) Glucose, fasting (04/06/2014 5:20 AM EDT) Pathologist [facility] Glucose Fasting 132(H) 65 - 99 mg/dL [facility] Comment: ?Fasting* Glucose Interpretive Criteria Normal ?65-99 mg/dL Impaired Fasting glucose ?100-125 mg/dL Consistent with Diabetes Mellitus ? >or= 126 mg/dL *Fasting is defined as no caloric intake for at least 8 hours In the absence of unequivocal hyperglycemia a plasma glucose value of >or= 126 mg/dL should be repeated on a subsequent day. Diagnosis and Classification of Diabetes Mellitus, Position Statement from the [place] [employer]. ??Diabetes Care, Volume 33, Supplement 1, Dec 2009 Blood specimen (specimen) 04/06/2014 5:20 AM EDT 04/06/2014 5:54 AM EDT Narrative Resulting Agency Comment Spec In Lab Kraig Julio MD CHEMISTRY ORDERABL ES [facility] * (ABNORMAL) Triglyceride (04/06/2014 5:20 AM EDT) Triglyceride 198(H) <=149 mg/dL [facility] Comment: Reference Range: Normal triglycerides: ??<150 mg/dL Borderline high: ??150-199 mg/dL High: ??200-499 mg/dL Very high: ??>qi=543 mg/dL PREM 2001; 285(19):6027-1370 Blood specimen (specimen) 04/06/2014 5:20 AM EDT 04/06/2014 5:54 AM EDT Narrative Resulting Agency Comment Spec In Lab Kraig Julio MD CHEMISTRY ORDERABL ES [facility] * (ABNORMAL) HDL/Cholesterol Profile (04/06/2014 5:20 AM EDT) Cholesterol, Total 174 <=199 mg/dL [facility] Comment: Recommendations of the NCEP Adult Treatment Panel for the following risk cutoff thresholds for the [place] population: Desirable: <200 mg/dL Borderline High: 200-239 mg/dL High: > or = 240 mg/dL HDL Cholesterol 25(L) >=40 mg/dL [facility] Comment: Reference range: ??Low HDL: ?? < 40 mg/dL ??Normal: ?40-60 mg/dL ??Desirable: > 60 mg/dL PREM 2001; 285(19):4821-0930 Cholesterol/HDL Ratio 7.0 ratio [facility] Comment: A Cholesterol to HDL ratio below 4:1 is desirable. ??Studies suggest that increased CAD risk occurs at ratios above 5 for females and above 6 for men. ? [place] [employer] Association ??(http://www.americanheart.org) ? Roxanna Int Med, 1994; 121:641 ? AM J Med, 1998; 105(1A):48S Blood specimen (specimen) 04/06/2014 5:20 AM EDT 04/06/2014 5:54 AM EDT Narrative Resulting Agency Comment Spec In Lab Kraig Julio MD CHEMISTRY ORDERABL ES Performing Organization Address [facility]/ZIP Co de Phone Number [facility] * (ABNORMAL) LDL Cholesterol, Direct (04/06/2014 5:20 AM EDT) LDL Cholesterol, Direct 124(H) <=99 mg/dL [facility] Comment: The National Cholesterol Education Program (NCEP) has set the following guidelines for LDL Cholesterol: Reference range: ?? Optimal: ?<100 mg/dL ?? Near Optimal/Above Optimal: ?? 100-129 mg/dL ?? Borderline high: ?130-159 mg/dL ?? High: ? 160-189 mg/dL ?? Very high: ?>ml=933 mg/dL PREM 2001: 28519):[id number] Blood specimen (specimen) 04/06/2014 5:20 AM EDT 04/06/2014 5:54 AM EDT Narrative Resulting Agency Comment Spec In Lab Kraig Julio MD CHEMISTRY ORDERABL ES Performing Organization Address [facility]/ZIP Co de Phone Number [facility] * (ABNORMAL) Hemoglobin A1c (04/06/2014 5:20 AM EDT) Pathologist [facility] Hemoglobin A1c 6.2(H) <=5.6 % [facility] Comment: As of 2013 the methodology [...] Mellitus, Diabetes Care 2013; 36: Suppl. 1, L42-42 Estimated Average Glucose 131 mg/dL [facility] Comment: eAG equivalents for HbA1c percentages: [...] into estimated average glucose values. ??Diabetes Care 2008:31(8):1320-1086. Blood specimen (specimen) 04/06/2014 5:20 AM EDT 04/06/2014 5:54 AM EDT Narrative Resulting Agency Comment Spec In Lab Kraig Julio MD CHEMISTRY ORDERABL ES [facility] * EKG 12 Lead (04/05/2014 10:17 PM EDT) Ventricular rate 87 BPM MUSE SYSTEM Atrial Rate 87 BPM MUSE SYSTEM P-R Interval 136 ms MUSE SYSTEM QRS Duration 86 ms MUSE SYSTEM Q-T Interval 376 ms MUSE SYSTEM QTC Calculated (Bezet) 452 ms MUSE SYSTEM Calculated P [place] 38 degrees MUSE SYSTEM Calculated R [place] -11 degrees MUSE SYSTEM Calculated T [place] 41 degrees MUSE SYSTEM INTERPRETATION Normal sinus rhythm Possible Left atrial enlargement Left ventricular hypertrophy Nonspecific ST abnormality Abnormal ECG No previous ECGs available Confirmed by MD Betito, Eric ([id number]) on 04/06/2014 4:13:19 PM MUSE SYSTEM 04/05/2014 10:1 7 PM EDT 04/06/2014 4:13 PM EDT Kraig Julio MD ECG ORDERABLES MUSE SYSTEM * MRI brain WO contrast (04/05/2014 9:55 PM EDT) Anatomical Region Laterality Modality Head Magnetic Resonan ce 04/05/2014 9:55 PM EDT Narrative 04/06/2014 9:01 AM EDT Examination MRA Neck W WO Contrast Clinical History patient with right sided weakness and evidence of capsular stroke on CT Comparison CT head 04/05/2014. Technique MRI of the brain was performed per standard protocol without intravenous contrast. 3D [id number] MRA of the head (noncontrast) was performed. MRA of the neck was obtained both before and after the administration of 14 mL Magnevist. Findings MRI brain: At the site of hypoattenuation on the CT study there is a 1.5 cm area of T2 prolongation and decreased diffusion involving the posterior aspect of the left putamen, posterior limb internal capsule, and guillen radiata. ?? There is little associated mass effect. ??Small old infarcts are present bilaterally within the cerebellar hemispheres. ??There are a few small scattered foci of T2 prolongation in the white matter of the bilateral cerebral hemispheres, a nonspecific finding most commonly reflecting small vessel ischemia. ??There is no intracranial hemorrhage, mass, or extra-axial collection. ??There is mucosal thickening within the left maxillary antrum; paranasal sinuses and mastoids are otherwise clear. ??The ventricles sulci are of normal size and configuration with a cavum septum pellucidum et vergae. MRA Neck: ??The origins of the great vessels and aortic arch no focal stenosis. ?? There is no site of more than minor stenosis within the cervical carotid or vertebral arteries MRA head: ??The intracranial arteries are of normal course and caliber. Impression ? 1. 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 ? 2. 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 Procedure Note Artur Holloway MD - 04/06/2014 Examination MRA Neck W WO Contrast Clinical History patient with right sided weakness and evidence of capsular stroke on CT Comparison CT head 04/05/2014. Technique MRI of the brain was performed per standard protocol without intravenous contrast. 3D fkuh-ig-aalpup MRA of the head (noncontrast) was performed.MRA of the neck was obtained both before and after the administration of 14 mL Magnevist. Findings MRI brain: At the site of hypoattenuation on the CT study there is a 1.5cm area of T2 prolongation and decreased diffusion involving the posterioraspect of the left putamen, posterior limb internal capsule, and guillen radiata. There is little associated mass effect. Small old infarcts are present bilaterally within the cerebellar hemispheres. There are a few smallscattered foci of T2 prolongation in the white matter of the bilateral cerebral hemispheres, a nonspecific finding most commonly reflecting small vessel ischemia. There is no intracranial hemorrhage, mass, or extra-axial collection. There is mucosal thickening within the left maxillary antrum; paranasal sinuses and mastoids are otherwise clear. The ventricles sulciare of normal size and configuration with a cavum septum pellucidum et vergae. MRA Neck: The origins of the great vessels and aortic arch no focalstenosis. There is no site of more than minor stenosis within the cervical carotidor vertebral arteries MRA head: The intracranial arteries are of normal course and caliber. Impression 1. Acute or subacute infarction of the left guillen radiata, posteriorlimb internal capsule, and posterior putamen. 2. 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 Kraig Julio MD [facility] * MRI head angiogram WO contrast (04/05/2014 9:55 PM EDT) Anatomical Region Laterality Modality Head Magnetic Resonan ce 04/05/2014 9:55 PM EDT Narrative 04/06/2014 9:01 AM EDT Examination MRA Neck W WO Contrast Clinical History patient with right sided weakness and evidence of capsular stroke on CT Comparison CT head 04/05/2014. Technique MRI of the brain was performed per standard protocol without intravenous contrast. 3D tmic-wz-kekavq MRA of the head (noncontrast) was performed. MRA of the neck was obtained both before and after the administration of 14 mL Magnevist. Findings MRI brain: At the site of hypoattenuation on the CT study there is a 1.5 cm area of T2 prolongation and decreased diffusion involving the posterior aspect of the left putamen, posterior limb internal capsule, and guillen radiata. ?? There is little associated mass effect. ??Small old infarcts are present bilaterally within the cerebellar hemispheres. ??There are a few small scattered foci of T2 prolongation in the white matter of the bilateral cerebral hemispheres, a nonspecific finding most commonly reflecting small vessel ischemia. ??There is no intracranial hemorrhage, mass, or extra-axial collection. ??There is mucosal thickening within the left maxillary antrum; paranasal sinuses and mastoids are otherwise clear. ??The ventricles sulci are of normal size and configuration with a cavum septum pellucidum et vergae. MRA Neck: ??The origins of the great vessels and aortic arch no focal stenosis. ?? There is no site of more than minor stenosis within the cervical carotid or vertebral arteries MRA head: ??The intracranial arteries are of normal course and caliber. Impression ? 1. 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 ? 2. 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 Procedure Note Artur Holloway MD - 04/06/2014 Examination MRA Neck W WO Contrast Clinical History patient with right sided weakness and evidence of capsular stroke on CT Comparison CT head 04/05/2014. Technique MRI of the brain was performed per standard protocol without intravenous contrast. 3D kwrc-yx-tootfp MRA of the head (noncontrast) was performed.MRA of the neck was obtained both before and after the administration of 14 mL Magnevist. Findings MRI brain: At the site of hypoattenuation on the CT study there is a 1.5cm area of T2 prolongation and decreased diffusion involving the posterioraspect of the left putamen, posterior limb internal capsule, and guillen radiata. There is little associated mass effect. Small old infarcts are present bilaterally within the cerebellar hemispheres. There are a few smallscattered foci of T2 prolongation in the white matter of the bilateral cerebral hemispheres, a nonspecific finding most commonly reflecting small vessel ischemia. There is no intracranial hemorrhage, mass, or extra-axial collection. There is mucosal thickening within the left maxillary antrum; paranasal sinuses and mastoids are otherwise clear. The ventricles sulciare of normal size and configuration with a cavum septum pellucidum et vergae. MRA Neck: The origins of the great vessels and aortic arch no focalstenosis. There is no site of more than minor stenosis within the cervical carotidor vertebral arteries MRA head: The intracranial arteries are of normal course and caliber. Impression 1. Acute or subacute infarction of the left guillen radiata, posteriorlimb internal capsule, and posterior putamen. 2. 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 Kraig Julio MD [facility] * MRI neck angiogram with/WO contrast (04/05/2014 9:55 PM EDT) Anatomical Region Laterality Modality Neck Magnetic Resonan ce 04/05/2014 9:55 PM EDT Narrative 04/06/2014 9:01 AM EDT Examination MRA Neck W WO Contrast Clinical History patient with right sided weakness and evidence of capsular stroke on CT Comparison CT head 04/05/2014. Technique MRI of the brain was performed per standard protocol without intravenous contrast. 3D cejp-ww-tsbign MRA of the head (noncontrast) was performed. MRA of the neck was obtained both before and after the administration of 14 mL Magnevist. Findings MRI brain: At the site of hypoattenuation on the CT study there is a 1.5 cm area of T2 prolongation and decreased diffusion involving the posterior aspect of the left putamen, posterior limb internal capsule, and guillen radiata. ?? There is little associated mass effect. ??Small old infarcts are present bilaterally within the cerebellar hemispheres. ??There are a few small scattered foci of T2 prolongation in the white matter of the bilateral cerebral hemispheres, a nonspecific finding most commonly reflecting small vessel ischemia. ??There is no intracranial hemorrhage, mass, or extra-axial collection. ??There is mucosal thickening within the left maxillary antrum; paranasal sinuses and mastoids are otherwise clear. ??The ventricles sulci are of normal size and configuration with a cavum septum pellucidum et vergae. MRA Neck: ??The origins of the great vessels and aortic arch no focal stenosis. ?? There is no site of more than minor stenosis within the cervical carotid or vertebral arteries MRA head: ??The intracranial arteries are of normal course and caliber. Impression ? 1. 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 ? 2. 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 Procedure Note Artur Holloway MD - 04/06/2014 Examination MRA Neck W WO Contrast Clinical History patient with right sided weakness and evidence of capsular stroke on CT Comparison CT head 04/05/2014. Technique MRI of the brain was performed per standard protocol without intravenous contrast. 3D ocge-fy-pqyghg MRA of the head (noncontrast) was performed.MRA of the neck was obtained both before and after the administration of 14 mL Magnevist. Findings MRI brain: At the site of hypoattenuation on the CT study there is a 1.5cm area of T2 prolongation and decreased diffusion involving the posterioraspect of the left putamen, posterior limb internal capsule, and guillen radiata. There is little associated mass effect. Small old infarcts are present bilaterally within the cerebellar hemispheres. There are a few smallscattered foci of T2 prolongation in the white matter of the bilateral cerebral hemispheres, a nonspecific finding most commonly reflecting small vessel ischemia. There is no intracranial hemorrhage, mass, or extra-axial collection. There is mucosal thickening within the left maxillary antrum; paranasal sinuses and mastoids are otherwise clear. The ventricles sulciare of normal size and configuration with a cavum septum pellucidum et vergae. MRA Neck: The origins of the great vessels and aortic arch no focalstenosis. There is no site of more than minor stenosis within the cervical carotidor vertebral arteries MRA head: The intracranial arteries are of normal course and caliber. Impression 1. Acute or subacute infarction of the left guillen radiata, posteriorlimb internal capsule, and posterior putamen. 2. 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 Kraig Julio MD [facility] ORDER[facility]LES * (ABNORMAL) Differential, Automated (04/05/2014 5:33 PM EDT) Neutrophil % 74.3(H) 34.0 - 71.0 % CERNER MILLENNIUM Neutrophil Absolute 6.22 1.50 - 6.30 x10(3)/mc L CERNER MILLENNIUM Lymph % 17.7(L) 19.0 - 53.0 % CERNER MILLENNIUM Lymphocytes Abs 1.5 1.0 - 3.6 x10(3)/mc L CERNER MILLENNIUM Monocyte % 6.9 4.0 - 13.0 % CERNER MILLENNIUM Monocyte Abs 0.6 0.2 - 1.0 x10(3)/mc L CERNER MILLENNIUM Eos % 0.6 0.0 - 7.0 % CERNER MILLENNIUM Eosinophils Abs 0.0 0.0 - 0.5 x10(3)/mc L CERNER MILLENNIUM Basophil % 0.1 0.0 - 2.0 % CERNER MILLENNIUM Baso Absolute 0.0 0.0 - 0.2 x10(3)/mc L CERNER MILLENNIUM Immature Gran % 0.40 0.00 - 0.66 % CERNER MILLENNIUM Comment: Immature granulocytes(IG's)percentage and absolute count will include metamyelocytes, myelocytes, and promyelocytes. Blood smears from CBCs yielding IG's will be scanned manually for concordance. If this scan disagrees with the automated IG or if promyelocytes are noted, a manual differential will be performed. Immature Gran Absolute 0.03 0.00 - 0.05 x10(3)/mc L CERGIOVANNY ALANISENNIUM Blood specimen (specimen) 04/05/2014 5:33 PM EDT 04/05/2014 5:52 PM EDT Kraig Julio MD HEMATOLOGY ORDERAB LES LEATHA FUENTES * APTT (04/05/2014 5:33 PM EDT) Partial Thromboplastin Time 28 25 - 35 sec LEATHA ALANISENNIUM Comment: Recommended therapeutic PTT range for full dose unfractionated heparin is 80-114 seconds. Blood specimen (specimen) 04/05/2014 5:33 PM EDT 04/05/2014 5:52 PM EDT Narrative Resulting Agency Comment Spec In Lab Kraig Julio MD HEMATOLOGY ORDERAB LES Performing Organization Address [facility] de Phone Number CERGIOVANNY ALANISENNIUM * Prothrombin Time (04/05/2014 5:33 PM EDT) Prothrombin Time 14.2 12.0 - 15.0 sec CERNER MILLENNIUM Comment: [facility] Transfusion Committee Guidelines: INR less than 2.0, PTT less than OR equal to 43.5 seconds, or Fibrinogen greater than or equal to 100 mg/dl indicate adequate procoagulant activity for hemostasis in patients without underlying bleeding disorders. International Normalization Ratio 1.1 0.9 - 1.1 CERNER MILLENNIUM Blood specimen (specimen) 04/05/2014 5:33 PM EDT 04/05/2014 5:52 PM EDT Narrative Resulting Agency Comment Spec In Lab Kraig Julio MD HEMATOLOGY ORDERAB LES Performing Organization Address [facility] Phone Number CERGIOVANNY ALANISENNIUM * (ABNORMAL) Hepatic Function Panel (04/05/2014 5:33 PM EDT) Protein, Total 8.2 6.4 - 8.3 gm/dL CERNER MILLENNIUM Albumin 4.9 3.2 - 5.2 gm/dL CERNER MILLENNIUM Aspartate Aminotransferase 16 0 - 39 unit/L CERNER MILLENNIUM Alanine Aminotransferase 19 0 - 55 unit/L CERNER MILLENNIUM Alkaline Phosphatase 136(H) 40 - 120 unit/L CERNER MILLENNIUM Bilirubin, Total 1.2 0.2 - 1.3 mg/dL CERNER MILLENNIUM Bilirubin, Direct 0.2 0.0 - 0.3 mg/dL CERNER MILLENNIUM Blood specimen (specimen) 04/05/2014 5:33 PM EDT 04/05/2014 5:52 PM EDT Narrative Resulting Agency Comment Spec In Lab Kraig Julio MD CHEMISTRY ORDERABL ES Performing Organization Address [facility] Co de Phone Number CERNER MILLENNIUM * Magnesium (04/05/2014 5:33 PM EDT) Magnesium 0.94 0.69 - 1.07 mmol/L CERNER MILLENNIUM Blood specimen (specimen) 04/05/2014 5:33 PM EDT 04/05/2014 5:52 PM EDT Narrative Resulting Agency Comment Spec In Lab Kraig Julio MD CHEMISTRY ORDERABL ES Performing Organization Address [facility] Co de Phone Number [facility] * Phosphorus (04/05/2014 5:33 PM EDT) Pathologist [facility] Phosphorus 3.2 2.5 - 4.5 mg/dL [facility] MILL[facility] Blood specimen (specimen) 04/05/2014 5:33 PM EDT 04/05/2014 5:52 PM EDT Narrative Resulting Agency Comment Spec In Lab Kraig Julio MD CHEMISTRY ORDERABL ES Performing Organization Address [facility] de Phone Number [facility] * (ABNORMAL) Basic Metabolic Panel (non-fasting) (04/05/2014 5:33 PM EDT) Pathologist [facility] Glucose 147 60 - 199 mg/dL CERNER MILLENNIUM Comment:Diabetes: >=200 mg/d L plus symptoms Blood Urea Nitrogen 13 10 - 20 mg/dL CERNER MILLENNIUM Creatinine 1.13 0.80 - 1.50 mg/dL CERNER MILLENNIUM Comment: Please note that the pediatric reference intervals supplied above were not validated at [facility]. Results from pediatric patients should be interpreted in conjunction to the patient's age, height and muscle mass. Sodium 141 135 - 145 mmol/L CERNER MILLENNIUM Potassium 3.7 3.5 - 5.0 mmol/L CERNER MILLENNIUM Comment: Please note: ??Patients with WBC >100,000 may have falsely elevated Potassium levels. ??For accurate Potassium quantification in these patients send serum separator tube (gold top) for subsequent determinations. ??Contact the Clinical Chemistry Laboratory if there are any questions. Chloride 102 98 - 107 mmol/L CERNER MILLENNIUM Carbon Dioxide 21(L) 22 - 31 mmol/L CERNER MILLENNIUM Anion Gap 18(H) 5 - 15 mmol/L CERNER MILLENNIUM Calcium 10.3 8.5 - 10.5 mg/dL CERNER MILLENNIUM Est Glomerular Filtration Rate >60 >=60 CERNER MILLENNIUM Comment: This estimated GFR (eGFR) value was calculated using the MDRD equation which has been validated on patients between the ages of 18 and 70. The MDRD should not be used to assess kidney function in patients < 18 years of age or in patients with extremes of body mass, or in patients with acute kidney failure. This value should be multiplied by 1.2 for patients. For further information please copy and paste the following links into your internet browser. http://www.nkdep.nih.gov/lab-evaluation.shtml http://www.kidney.org/professionals/ Blood specimen (specimen) 04/05/2014 5:33 PM EDT 04/05/2014 5:52 PM EDT Narrative Resulting Agency Comment Spec In Lab Kraig Julio MD CHEMISTRY ORDERABL ES CERNER MILLENNIUM * (ABNORMAL) CBC (with Diff) (04/05/2014 5:33 PM EDT) White Blood Cell 8.4 4.0 - 10.0 x10(3)/mc L CERNER MILLENNIUM Red Blood Cell 5.79 4.63 - 6.08 x10(6)/mc L CERNER MILLENNIUM Hemoglobin 17.9(H) 13.7 - 17.5 gm/dL CERNER MILLENNIUM Hematocrit 48.5 40.0 - 51.0 % CERNER MILLENNIUM Mean Cell Volume 83.8 79.0 - 92.0 fL CERNER MILLENNIUM Mean Cell Hemoglobin 30.9 25.6 - 32.2 pg CERNER MILLENNIUM Mean Cell Hemoglobin Concentration 36.9(H) 32.0 - 36.5 gm/dL CERNER MILLENNIUM Platelet 199 145 - 370 x10(3)/mc L CERNER MILLENNIUM RDW Standard Deviation 39.8 35.0 - 46.0 fL CERNER MILLENNIUM RDW coefficient of variation 13.3 10.9 - 14.4 % LEATHA COUGHLINIUM Mean Platelet Volume 10.9 9.0 - 12.0 fL LEATHA COUGHLINIUM Blood specimen (specimen) 04/05/2014 5:33 PM EDT 04/05/2014 5:52 PM EDT Narrative Resulting Agency Comment Spec In Lab Kraig Julio MD HEMATOLOGY ORDERAB LES LEATHA FUENTES * Cerebrovascular Duplex, Bilateral (04/05/2014 4:36 PM EDT) VB Text Report Department: Vascular Surgery Lab Patient: [id number] (GALO MALDONADO) CPT Code: 77076 ICD-9: 433.11 Referring Physician: KRAIG JULIO Indication: Stroke identified by outside facility, ? carotid disease ICD9 Diagnosis Code: 433.11 Findings: ICA Proximal, Right ? PSV (cm/s): 47 ? EDV (cm/s): 14 ? ICA/CCA: 0.5 ? Plaque Structure: Echogenic ? Plaque Surface: Irregular ? %Stenosis: <15% ICA Distal, Right ? PSV (cm/s): 63 ? EDV (cm/s): 25 ? ICA/CCA: 0.7 CCA Distal, Right ? PSV (cm/s): 95 ? EDV (cm/s): 22 ? %Stenosis: Minimal CCA Proximal, Right ? PSV (cm/s): 93 ? EDV (cm/s): 19 External Carotid Artery, Right ? PSV (cm/s): 116 ? EDV (cm/s): 12 ? %Stenosis: Minimal Vertebral, Right ? PSV (cm/s): 39 ? EDV (cm/s): 15 ? Direction of Flow: Antegrade ICA Proximal, Left ? PSV (cm/s): 65 ? EDV (cm/s): 25 ? ICA/CCA: 0.7 ? Plaque Structure: Echogenic ? Plaque Surface: Irregular ? %Stenosis: <15% ICA Distal, Left ? PSV (cm/s): 50 ? EDV (cm/s): 20 ? ICA/CCA: 0.5 CCA Distal, Left ? PSV (cm/s): 96 ? EDV (cm/s): 22 ? %Stenosis: Minimal CCA Proximal, Left ? PSV (cm/s): 109 ? EDV (cm/s): 21 External Carotid Artery, Left ? PSV (cm/s): 107 ? EDV (cm/s): 16 ? %Stenosis: Minimal Vertebral, Left ? PSV (cm/s): 45 ? EDV (cm/s): 18 ? Direction of Flow: Antegrade Interpretation: RIGHT: There is irregular plaque in the proximal internal carotid artery causing <15% stenosis when compared to the more distal internal carotid artery. Tortuous mid/distal ICA. The bifurcation level is in the mid neck. LEFT: There is irregular plaque in the proximal internal carotid artery causing <15% stenosis when compared to the more distal internal carotid artery. Tortuous mid/distal ICA. The bifurcation level is in the mid neck. Vertebral Artery Data: Patent vertebral arteries with normal antegrade Doppler waveforms and velocities bilaterally. Comparison: ??No previous study in our vascular lab database for comparison. Electronically Signed by: EVA CHO on 2014-04-06 03:46:22 PM VASCUBASE VB Text Report End of Report VASCUBASE 04/05/2014 4:36 PM EDT Kraig Julio MD VASCULAR ORDERABLE S VASCUBASE documented in this encounter Visit Diagnoses Diagnosis Cerebral infarction Unspecified cerebral artery occlusion with cerebral infarction documented in this encounter Administered Medications Inactive Administered Medications - up to 3 most recent administrations Medication Order MAR Action Action Date Dose Rate Site aspirin tablet 325 mg 325 mg, Oral, DAILY, First dose (after last modification) on Sat04/05/14 at 1715, Until Discontinued, STAT Given 04/08/2014 9:36 AM EDT 325 mg Given 04/07/2014 8:42 AM EDT 325 mg Given 04/06/2014 9:08 AM EDT 325 mg atorvastatin (LIPITOR) tablet 80 mg 80 mg, Oral, EVERY EVENING, First dose on Sat04/05/14 at 1730, Until Discontinued, Routine Given 04/07/2014 4:48 PM EDT 80 mg Given 04/06/2014 5:14 PM EDT 80 mg Given 04/05/2014 5:57 PM EDT 80 mg chlorhexidine (PERIDEX) 0.12 % oral solution 15 mL 15 mL, Oral, EVERY 12 HOURS SCHEDULED (2 times per day), First dose on Sat04/05/14 at 2100, Until Discontinued, [place] teeth every 12 hours, Routine Given 04/07/2014 9:49 PM EDT 15 mLs Given 04/07/2014 8:44 AM EDT 15 mLs Given 04/06/2014 8:33 PM EDT 15 mLs clopidogrel (PLAVIX) tablet 150 mg 150 mg, Oral, ONCE, 1 dose, On Sat04/06/14 at 0915, STAT Given 04/06/2014 9:13 AM EDT 150 mg clopidogrel (PLAVIX) tablet 75 mg 75 mg, Oral, DAILY, First dose on Sat04/07/14 at 0900, Until Discontinued, Routine Given 04/08/2014 9:35 AM EDT 75 mg Given 04/07/2014 8:42 AM EDT 75 mg docusate sodium (COLACE) capsule 100 mg 100 mg, Oral, 2 TIMES DAILY, First dose on Sat04/05/14 at 2100, Until Discontinued, Routine Given 04/07/2014 8:43 AM EDT 100 mg Given 04/06/2014 8:33 PM EDT 100 mg Given 04/06/2014 9:09 AM EDT 100 mg enoxaparin (LOVENOX) injection 40 mg 40 mg, Subcutaneous, DAILY, First dose on Sat04/05/14 at 1700, Until Discontinued, Routine Given 04/08/2014 9:35 AM EDT 40 mg Given 04/07/2014 8:43 AM EDT 40 mg Given 04/06/2014 9:08 AM EDT 40 mg gadopentetate dimeglumine (MAGNEVIST) 10 mmol/20 mL (469.01 mg/mL) injection 13.88 mL 13.88 mL (0.2 mL/kg/dose ? 69.4 kg), Intravenous, ONCE PRN, 1 dose, Starting on Sat04/05/14 at 2115, Until Sat04/05/14 at 2157, Per Protocol, Routine Given 04/05/2014 9:57 PM EDT 14 mLs pantoprazole (PROTONIX) tablet 40 mg 40 mg, Oral, DAILY, First dose on Sat04/06/14 at 1730, Until Discontinued, Restricted to patients on clopidogrel (PLAVIX) who require a proton pump inhibitor Given 04/08/2014 9:35 AM EDT 40 mg Given 04/07/2014 8:43 AM EDT 40 mg Given 04/06/2014 6:38 PM EDT 40 mg sodium chloride 0.9 % flush 5 mL 5 mL, Intravenous, 2 TIMES DAILY, First dose on Sat04/05/14 at 2100, Until Discontinued, Routine Given 04/05/2014 8:32 PM EDT 5 mLs sodium chloride 0.9% infusion 1,000 mL, at 100 mL/hr, Intravenous, CONTINUOUS, Starting on Sat04/05/14 at 1700, Until Sat04/08/14 at 1443 New Bag 04/07/2014 12:54 AM EDT 1,000 mLs 100 m L/hr New Bag 04/06/2014 3:48 PM EDT 1,000 mLs 100 mL/hr New Bag 04/06/2014 5:22 AM EDT 1,000 mLs 100 mL/hr documented in this encounter Active and Recently Administered Medications Times are shown in EDT. Scheduled Medication Order 04/06/2014 04/07/2014 04/08/2014 aspirin tablet 325 mg 325 mg, Oral, DAILY, First dose (after last modification) on Sat04/05/14 at 1715, Until Discontinued, STAT 0908 (Given - Provider: Grazyna Bradley RN) 0842 (Given - Provider: Grazyna Bradley RN) 0936 (Given - Provider: Elida Murphy RN) atorvastatin (LIPITOR) tablet 80 mg 80 mg, Oral, EVERY EVENING, First dose on Sat04/05/14 at 1730, Until Discontinued, Routine 1714 (Given - Provider: Grazyna Bradley RN) 1648 (Given - Provider: Grazyna Bradley RN) chlorhexidine (PERIDEX) 0.12 % oral solution 15 mL (CANCELED) 15 mL, Oral, EVERY 12 HOURS SCHEDULED (2 times per day), First dose on Sat04/05/14 at 2100, Until Discontinued, [place] teeth every 12 hours, Routine 0908 (Given - Provider: Grazyna Bradley RN)2032 (Given - Provider: Mary Mckeon RN) 0844 (Given - Provider: Grazyna Bradley RN)214 (Given - Provider: Maria Fernanda Pemberton, DAVID) 0900 (Not Given - Provider: Elida Murphy RN - Reason: See comment) clopidogrel (PLAVIX) tablet 150 mg (COMPLETED) 150 mg, Oral, ONCE, 1 dose, On Sat04/06/14 at 0915, STAT 0913 (Given - Provider: Grazyna Bradley RN) clopidogrel (PLAVIX) tablet 75 mg 75 mg, Oral, DAILY, First dose on Sat04/07/14 at 0900, Until Discontinued, Routine 0842 (Given - Provider: Grazyna Bradley RN) 0935 (Given - Provider: Elida Murphy, DAVID) docusate sodium (COLACE) capsule 100 mg (CANCELED) 100 mg, Oral, 2 TIMES DAILY, First dose on Sat04/05/14 at 2100, Until Discontinued, Routine 0909 (Given - Provider: Grazyna Bradley RN)2032 (Given - Provider: Mary Mckeon RN) 0843 (Given - Provider: Grazyna Bradley RN)2100 (Not Given - Provider: Maria Fernanda Pemberton RN - Reason: Patient/family refused) 0900 (Not Given - Provider: Elida Murphy, DAVID - Reason: Patient/family refused) enoxaparin (LOVENOX) injection 40 mg (CANCELED) 40 mg, Subcutaneous, DAILY, First dose on Sat04/05/14 at 1700, Until Discontinued, Routine 0908 (Given - Provider: Grazyna Bradley RN) 0843 (Given - Provider: Grazyna Bradley RN) 0935 (Given - Provider: Elida Murphy, DAVID) pantoprazole (PROTONIX) tablet 40 mg 40 mg, Oral, DAILY, First dose on Sat04/06/14 at 1730, Until Discontinued, Restricted to patients on clopidogrel (PLAVIX) who require a proton pump inhibitor 1838 (Given - Provider: Grazyna Bradley RN - Comment: waiting for pharmacy to send) 0843 (Given - Provider: Grazyna Bradley RN) 0935 (Given - Provider: Elida Murphy RN) Continuous Medication Order 04/06/2014 04/07/2014 04/08/2014 sodium chloride 0.9% infusion (CANCELED) 1,000 mL, at 100 mL/hr, Intravenous, CONTINUOUS, Starting on Sat04/05/14 at 1700, Until [place] 04/08/14 at 1443 0522 (New Bag - Provider: Mary Mckeon RN)1548 (New Bag - Provider: Grazyna Bradley RN) 0054 (New Bag - Provider: Mary Mckeon RN)0912 (Stopped - Provider: Grazyna Bradley RN) documented in this encounter Care Teams [employer] Manager Relationship Specialty Start Date End Date Unknown None PCP - General 04/05/14 05/21/16 documented as of this encounter
[2024-11-26 15:06] LABS: PSA, Ultrasensitive 12.1 ng/mL (<= 4.5)
[2024-11-28 16:07] LABS: Testosterone, Total <7.0 ng/dL (240-950)
== END 2024-11-24 13:52 | disposition home or self-care (01) ==
LOC: LBO 13:53
PROVIDERS: PCP Nurse Practitioner Family; Visit Provider Internal Medicine
DX: C61 Malignant neoplasm of prostate (principal); C79.51 Secondary malignant neoplasm of bone
CPT/HCPCS: 36415; 80053; 84153; 84403; 85025

== ENCOUNTER 2024-12-21 15:28 | Emergency (ER) | payer MEDICARE, SELFPAY ==
[2024-12-21 15:31] VITALS: BP 168/99; PULSE 73; RESP 15; TEMP 36.9; O2SAT 95
--- NOTE | 2024-12-21 15:45 | DI.CT_ITS ---
Exam(s) CT PELVIC WO EXAM: CT PELVIC WO CLINICAL HISTORY: right hip pain, hx of prostate ca. TECHNIQUE: Imaging Protocol: Axial computed tomography images with coronal and sagittal reformatted images were created and reviewed. CONTRAST MATERIAL: Oral: no CT CT CHEST/ABD/PEL WO from 04/14/2022 FINDINGS: Bladder: Symmetric distention, no gross wall thickening. Bowel: No obstruction or bowel wall thickening. Appendix normal. Normal quantity of stool. Peritoneal cavity: No ascites, collection or mesenteric inflammatory response. Reproductive: Status post prostatectomy. Metallic seeds in prostate bed. Bones: No fracture. Degenerative disc changes in the lower lumbar spine. Prominent endplate osteop hytes projecting anteriorly. Mild degenerative changes of both hips. The SI joints and pubic symphy sis are unremarkable. No destructive bony lesion. Small sclerotic focus noted in the anterior left femoral head. This was present on the 2018 exam and appears unchanged.. Soft tissues: Unremarkable. IMPRESSION: No acute abnormality. No bony metastatic lesions are identified. RADIATION DOSE DELIVERED: Total DLP DATA REPOSITORY: All CT scans at this facility are submitted to the National Radiology Data Registry (NRDR) Dose Index Registry (DIR) with the [employer] ([employer]). RADIATION OPTIMIZATION: All CT scans at this facility use at least one of these dose optimization te chniques: automated exposure control; mA and/or kV adjustment per patient size (includes targeted exa ms where dose is matched to clinical indication); or iterative reconstruction.
[2024-12-21 17:16] LABS: Bilirubin Small (Negative); Blood Negative (Negative); Clarity Clear (Clear); Glucose Negative (Negative); Ketones >=160 mg/dL (Negative); Leukocyte Esterase Negative (Negative); Nitrite Negative (Negative); Specific Gravity 1.025 (1.005-1.025); Urobilinogen 0.2 mg/dL (Up to 0.2); pH 5.5 (5-8)
[2024-12-21] MEDS: MORPHine IR 15 MG TAB, 4 TABS/BTL PO (17:40)
[2024-12-21 17:41] VITALS: BP 152/70; PULSE 74; RESP 20; O2SAT 97
--- NOTE | 2024-12-21 20:16 | W.ED.GENAD ---
Discharge Plan Disposition Patient Disposition: Home Discharge Details Clinical Impression: Hip pain, right Primary Care Provider: FELIX CARMEN ED Provider: Selena Kumar Home Meds and New Rx's Prescriptions: New morphine 15 mg tablet 15 mg PO Q8H PRNQty: 10 0RF Continued amlodipine 10 mg tablet 10 mg PO DAILY Qty: 90 3RF lisinopril 40 mg tablet 40 mg PO DAILY Qty: 90 3RF triamcinolone acetonide 0.1 % cream 1 applic topical BID Qty: 30 0RF Rx Instructions: apply to rash area every 12 hours x 10 days ibuprofen 600 mg tablet 600 mg PO Q8H PRN (Reason: pain) Qty: 10 0RF Rx Instructions: Trial twice a day x 3 days. TAKE WITH FOOD (cheese/peanut butter) ascorbate calcium (vitamin C) 500 mg tablet 1 gm PO DAILY melatonin 10 mg tablet 10 mg PO HS PRN clopidogrel [Plavix] 75 mg tablet 75 mg PO DAILY Qty: 90 3RF baclofen 10 mg tablet 10 mg PO BID PRN abiraterone [Zytiga] 250 mg tablet 1,000 mg PO DAILY Rx Instructions: must be taken on empty stomach, at least 1 hr before or 2 hrs after a meal/food Lupron Depot (4 month) 30 mg syringe kit 30 mg IM [id number] cholecalciferol (vitamin D3) [Vitamin D3] 25 mcg (1,000 unit) Tablet,Chewable 25 mcg PO DAILY sertraline [Zoloft] 25 mg tablet 1 tab PO DAILY Patient Comments: Take 1 tablet by mouth once a day tamsulosin 0.4 mg capsule 0.4 mg PO PRN PRN Xtandi 40 mg capsule 160 mg PO DAILY celecoxib 200 mg capsule 200 mg PO PRN Discharge Instructions Instructions: Hip Pain ED Additional Instructions: Take Tylenol 3 times a day 650 mg as needed for pain Please follow-up with Dr. López your oncologist and let him know you have been having some hip discomfort and please review your PET scan and CTs with him. You may take morphine at night as needed for discomfort, you may take half a tablet or the complete tablet if you do not feel you get sufficient relief Ambulate as tolerated you may use a cane for support Should you have worsening pain, fever, chills, please present for reassessment Please follow-up with your primary care physician/orthopedics as needed and return earlier should you have new or worsening complaints Referrals: FELIX CARMEN [employer] [Primary Care Provider] - Discharge Data Discharge Date/Time-TO BE ENTERED AT DEPARTURE: 12/21/24 17:43 HPI General Date/Time Provider Initiated Documentation: 12/21/24 15:32. HPI Narrative: This 64-year-old male with history of prostate cancer undergoing current hormonal blockers and radiation presents with report of right hip pain. Patient states has had the pain for approximately a month. Patient denies any abdominal pain, chest pain, shortness of breath, nausea, vomiting. Related Data Home Medications ?Medication ?Instructions ?Recorded ?Confirmed cholecalciferol (vitamin D3) 25 25 mcg PO DAILY 06/11/20 12/21/24 mcg (1,000 unit) chewable tablet (Vitamin D3) ascorbate calcium (vitamin C) 500 1 gm PO DAILY 06/24/20 12/21/24 mg tablet melatonin 10 mg tablet 10 mg PO HS PRN 07/07/20 12/21/24 triamcinolone acetonide 0.1 % 1 applic topical BID #30 grams 07/12/21 12/21/24 topical cream clopidogrel 75 mg tablet (Plavix) 75 mg PO DAILY #90 tabs 07/13/21 12/21/24 tamsulosin 0.4 mg capsule 0.4 mg PO PRN PRN 08/29/21 12/21/24 amlodipine 10 mg tablet 10 mg PO DAILY #90 tabs 09/09/21 12/21/24 lisinopril 40 mg tablet 40 mg PO DAILY #90 tab-caps 09/09/21 12/21/24 ibuprofen 600 mg tablet 600 mg PO Q8H PRN pain #10 tabs 10/12/21 12/21/24 sertraline 25 mg tablet (Zoloft) 1 tab PO DAILY 07/25/22 12/21/24 abiraterone 250 mg tablet (Zytiga) 1,000 mg PO DAILY 11/22/22 12/21/24 baclofen 10 mg tablet 10 mg PO BID PRN 11/22/22 12/21/24 leuprolide (4 month) 30 mg (4 30 mg IM [id number] 10/07/23 12/21/24 month) intramuscular syringe kit (Lupron Depot) celecoxib 200 mg capsule 200 mg PO PRN 12/21/24 12/21/24 enzalutamide 40 mg capsule (Xtandi) 160 mg PO DAILY 12/21/24 12/21/24 morphine 15 mg immediate release 15 mg PO Q8H PRN #10 tabs 12/21/24 tablet Previous Rx's ?Medication ?Instructions ?Recorded triamcinolone acetonide 0.1 % 1 applic topical BID #30 grams 07/12/21 topical cream clopidogrel 75 mg tablet (Plavix) 75 mg PO DAILY #90 tabs 07/13/21 amlodipine 10 mg tablet 10 mg PO DAILY #90 tabs 09/09/21 lisinopril 40 mg tablet 40 mg PO DAILY #90 tab-caps 09/09/21 ibuprofen 600 mg tablet 600 mg PO Q8H PRN pain #10 tabs 10/12/21 morphine 15 mg immediate release 15 mg PO Q8H PRN #10 tabs 12/21/24 tablet Allergies Allergy/AdvReac Type Severity Reaction Status Date / Time Penicillins Allergy Unknown Unknown Verified 12/21/24 15:36 venlafaxine HCl (From Allergy Unknown Unknown Verified 12/21/24 15:36 Effexor) latex Allergy Itching Verified 12/21/24 15:36 General Stated Complaint: Orthopedic PAU: 4 Exam Narrative Exam Narrative: Right hip with very mild tenderness, no tenderness with range of motion, no evidence of septic arthritis, no tenderness to the right upper thigh or right calf, neurovascularly intact, lungs clear to auscultation, no abdominal tenderness, no CVA tenderness, alert and oriented times, no significant rashes or lesions. Course Vital Signs Vital signs: Vital Signs Temperature 36.9 C 12/21/24 15:31 Pulse 73 12/21/24 15:31 Respiratory Rate 12/21/24 15:31 Blood Pressure 168/99 H 12/21/24 15:31 Pulse Oximetry 95 12/21/24 15:31 Temperature 36.9 C 12/21/24 15:31 Temperature Source Temporal Artery Scan 12/21/24 15:31 Pulse 74 12/21/24 17:41 Respiratory Rate 20 12/21/24 17:41 Blood Pressure 152/70 H 12/21/24 17:41 Blood Pressure Position Sitting 12/21/24 15:31 Pulse Oximetry 97 12/21/24 17:41 Oxygen Delivery Method Room Air 01/20/25 15:31 Oxygen Flow Rate 0 12/21/24 15:31 Pain Level 5 12/21/24 16:14 Lab/Test Results Lab/Test Results: Laboratory Tests Range/Units 12/21/24 12/21/24 12/21/24 17:10 18:11 20:11 WBC Cancelled RBC Cancelled Hgb Cancelled Hct Cancelled MCV Cancelled MCH Cancelled MCHC Cancelled RDW Cancelled Plt Count Cancelled MPV Cancelled Immature Gran % Cancelled Neutrophils % Cancelled Band Neutrophils % Cancelled Lymphocytes % Cancelled Atypical Lymphs % Cancelled Monocytes % Cancelled Eosinophils % Cancelled Basophils % Cancelled Metamyelocytes % Cancelled Myelocytes % Cancelled Promyelocytes % Cancelled Other Cells % Cancelled Nucleated RBC % Cancelled Absolute Neutrophils Cancelled Absolute Lymphocytes Cancelled Absolute Monocytes Cancelled Absolute Eosinophils Cancelled Absolute Basophils Cancelled RBC Morphology Cancelled Polychromasia Cancelled Hypochromasia Cancelled Poikilocytosis Cancelled Basophilic Stippling Cancelled Anisocytosis Cancelled Microcytosis Cancelled Macrocytosis Cancelled Spherocytes Cancelled Tear Drop Cells Cancelled Ovalocytes Cancelled Stomatocytes Cancelled [place] Bodies Cancelled Justin Cells/Echinocytes Cancelled Acanthocytes (Spur) Cancelled Schistocytes Cancelled D-Dimer Cancelled Sodium Cancelled Potassium Cancelled Chloride Cancelled Carbon Dioxide Cancelled Anion Gap Cancelled BUN Cancelled Creatinine Cancelled Est GFR (CKD-EPI 2020) Cancelled Glucose Cancelled Calcium Cancelled Magnesium Cancelled Total Bilirubin Cancelled AST Cancelled ALT Cancelled Alkaline Phosphatase Cancelled Troponin I Cancelled Cancelled Cancelled NT-Pro-B Natriuret Pep Cancelled Total Protein Cancelled Albumin Cancelled Urine Color (Yellow) Yellow Urine Clarity (Clear) Clear Urine pH (5-8) 5.5 Ur Specific [place] (1.005-1.025) 1.025 Urine Protein (Neg-Trace) mg/dL Negative Urine Ketones (Negative) mg/dL >=160 H Urine Blood (Negative) Negative Urine Nitrite (Negative) Negative Urine Bilirubin (Negative) Small H Urine Urobilinogen (Up to 0.2) mg/dL 0.2 Ur Leukocyte Esterase (Negative) Negative Urine Glucose (Negative) mg/dL Negative Medical Decision Making Alert and oriented 64-year-old male in no acute distress, history of prostate cancer, given prostate cancer with metastases, I did order CT of patient's right upper extremity with pelvis, there is no evidence of acute abnormality per radiology interpretation and my review. Patient ambulatory steady gait, nontoxic in appearance, did have ketones in his urine, however his blood glucose was 115 which is reassuring. He is encouraged to drink more fluids, this is likely secondary to dehydration. I spent approximately 20 minutes reviewing the patient's prior documentation including imaging Quality:SDOH Health Related Social Needs: Health related social needs feeling lonely/isolated (Z60.8) PFSH All Active Problems (Updated 12/21/24 @ 17:15 by SLIM [place]) Hip pain, right (Acute) Right leg weakness (Acute) Long toenail (Acute) Type 2 diabetes mellitus (Acute) Medication intolerance (Chronic) Physical and philosophical intolerance of medications .. Prefers no statin, despite Hx CVA. At risk of fracture due to osteoporosis (Acute) Due to prostate cancer Tx ... Listed on screening request from [facility] per pt. Vitamin D deficiency (Acute) Hypertension (Chronic) Dyslipidemia (Chronic) Prostate cancer (Chronic) Possible (+) findings, Dec 2021. Cancer free per pt report, 11/2020. Jan 2021 check in @ [facility]. 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 1 3-4-5 weeks Chondromalacia patellae of right knee (Acute) Right knee pain (Acute) Pain w/ ambulation, new fluid collection. x 1 month, with exacerbation during walk yesterday .. Encounter for rehabilitation (Acute) a. From an infarction. Elevated prostate specific antigen (PSA) (Acute 10/30/16) Right groin pain (Acute) Nocturia (Acute) Insomnia disorder related to known organic factor (Acute) Depression (Chronic) Anxiety (Chronic) Medical History Prediabetes Hx of colonic polyps History of prediabetes Hemiplegia affecting dominant side, post-stroke Ischemic stroke Urinary outflow obstruction H/O prostate cancer Anxiety with depression Rib pain on right side Weakness of right arm Tubular adenoma (~01/2021) Diverticula of colon Chemotherapy-induced fatigue leading to deconditioning Spasticity (02/22/15) Presumed post CVA (2013) Surgical History History of colonoscopy with polypectomy (~02/10/21) Colonoscopy - IV Sedation (10/07/15) DR.TERRY BURGOS Family History Brother Anxiety Father Diabetes Other Hypertension Social History Smoking/Tobacco Use Status: Never Smoking risk assessment performed?: Yes Alcohol Intake: current Alcohol Intake frequency: 0-2 drinks per day Drug use: Never Substance use type: does not use Adopted: No Caregiver/Support person: No Foster care: No Household members: family Housing: house Do you need help understanding health information?: Rarely current occupation: Unemployed Sexually active: No Do you think of yourself as: lesbian/kc/homosexual Current gender identity: male Do you feel safe at home: Yes Do you feel safe in your relationship?: Yes
--- NOTE | 2024-12-28 10:54 | NUR.NOTE ---
Addendum entered by Parisa Tavarez 12/28/24 11:03: Dr. Browning stated he electronically sent it. I called patient and he is aware of this and pick it up. He will also burn the paper prescription in his wood stove. Original Note: Patient called stating that the pharmacy is requiring the prescription be sent electronically due to his insurance Medicare. I called [facility] and they confirmed this. Note given to Dr. Browning to complete. Patient phone # [phone] Nursing Note:
--- NOTE | 2024-12-28 10:57 | W.ED.FU ---
Date of service: 12/28/24 Time of Service: 10:57 Follow Up Plan: This patient was seen in the emergency department last night. Patient had a prescription that was written for morphine. Patient's pharmacy would not fill this prescription given that it was printed. I sent electronic prescription to the patient's pharmacy for morphine. I reviewed the patient's PDMP record and there is no records for any opiates.
== END 2024-12-21 17:43 | disposition home or self-care (01) ==
PROVIDERS: Emergency Provider Physician Assistant; PCP Nurse Practitioner Family
DX: M25.551 Pain in right hip (principal); I10 Essential (primary) hypertension; Z85.46 Personal history of malignant neoplasm of prostate; Z51.11 Encounter for antineoplastic chemotherapy; E11.9 Type 2 diabetes mellitus without complications
CPT/HCPCS: 36416; 80053; 82962; 99284; 72192; 81003; 83735; 83880; 84484; 85025; 85379

== ENCOUNTER 2024-12-29 03:14 | Outpatient (CLI) | payer MEDICARE, SELFPAY ==
[2024-12-29 13:33] LABS: Abs Immature Grans 0.02 10^3/uL (0.0-0.06); Absolute Basophil Count 0.02 10^3/uL (0.0-0.2); Absolute Eosinophil Count 0.06 10^3/uL (0.0-0.7); Absolute Lymphocyte Count 0.97 10^3/uL (1.2-3.4); Absolute Monocyte Count 0.38 10^3/uL (0.1-0.8); Absolute Neutrophil Count 2.46 10^3/uL (1.2-6.7); Basophils % 0.5 %; Eosinophils % 1.5 %; HCT 43.4 % (40.0-50.0); HGB 14.6 g/dL (13.5-17.5); Immature Grans % 0.5 %; Lymphocytes % 24.8 %; MCH 29.1 pg (27.0-33.0); MCHC 33.6 % (32.0-36.0); MCV 87 fL (80-95); MPV 9.6 fL (8.0-11.0); Monocytes % 9.7 %; Platelet Count 198 10^3/uL (130-400); RBC 5.02 10^6/uL (4.36-5.78); RDW 12.9 % (11.8-14.1); RDW-SD 39.8 fL; WBC 3.91 10^3/uL (4.4-10.8)
[2024-12-29 13:50] LABS: ALT 13 U/L (16-63); AST 14 U/L (15-37); Albumin 3.9 g/dL (3.4-5.0); Alkaline Phosphatase 166 U/L (46-116); Anion Gap 10.7 mmol/L (3-11); BUN 25 mg/dL (7-18); Bilirubin, Total 0.65 mg/dL (0.2-1.0); CO2 26.3 mmol/L (21.0-32.0); CREATININE 1.1 mg/dL (0.70-1.30); Calcium 10.5 mg/dL (8.5-10.1); Chloride 104 mmol/L (98-107); Estimated GFR 75.43 (mL/min/1.73m2); Glucose 119 mg/dL (74-106); Potassium 4.6 mmol/L (3.5-5.1); Sodium 141 mmol/L (136-145); Total Protein 7.4 g/dL (6.4-8.2)
[2024-12-31 10:53] LABS: PSA, Ultrasensitive 33.3 ng/mL (<= 4.5)
[2025-01-01 16:19] LABS: Testosterone, Total 9.5 ng/dL (240-950)
== END 2024-12-29 03:15 | disposition home or self-care (01) ==
LOC: LBO 03:14
PROVIDERS: Internal Medicine; PCP Nurse Practitioner Family; Visit Provider Nurse Practitioner Family
DX: C61 Malignant neoplasm of prostate (principal); C79.51 Secondary malignant neoplasm of bone
CPT/HCPCS: 36415; 80053; 84153; 84403; 85025

== ENCOUNTER 2025-02-18 01:38 | Outpatient (CLI) | payer MEDICARE, SELFPAY ==
[2025-02-18 14:44] LABS: Kit/Specimen SENT
[2025-02-18 15:11] LABS: Abs Immature Grans 0.02 10^3/uL (0.0-0.06); Absolute Basophil Count 0.01 10^3/uL (0.0-0.2); Absolute Eosinophil Count 0.06 10^3/uL (0.0-0.7); Absolute Monocyte Count 0.28 10^3/uL (0.1-0.8); Absolute Neutrophil Count 2.46 10^3/uL (1.2-6.7); Basophils % 0.3 %; Eosinophils % 1.6 %; HCT 40.7 % (40.0-50.0); HGB 13.9 g/dL (13.5-17.5); Immature Grans % 0.5 %; Lymphocytes % 24.1 %; MCH 29.3 pg (27.0-33.0); MCHC 34.2 % (32.0-36.0); MCV 86 fL (80-95); MPV 9.6 fL (8.0-11.0); Monocytes % 7.5 %; Platelet Count 236 10^3/uL (130-400); RBC 4.74 10^6/uL (4.36-5.78); RDW 13.5 % (11.8-14.1); RDW-SD 42.4 fL; WBC 3.73 10^3/uL (4.4-10.8)
[2025-02-18 15:34] LABS: ALT 13 U/L (16-63); AST 11 U/L (15-37); Albumin 3.6 g/dL (3.4-5.0); Alkaline Phosphatase 172 U/L (46-116); Anion Gap 9.7 mmol/L (3-11); BUN 17 mg/dL (7-18); Bilirubin, Total 0.8 mg/dL (0.2-1.0); CO2 27.3 mmol/L (21.0-32.0); CREATININE 0.9 mg/dL (0.70-1.30); Chloride 105 mmol/L (98-107); Estimated GFR 95.37 (mL/min/1.73m2); Glucose 128 mg/dL (74-106); Potassium 3.7 mmol/L (3.5-5.1); Sodium 142 mmol/L (136-145); Total Protein 7.6 g/dL (6.4-8.2)
[2025-02-19 22:41] LABS: PSA, Ultrasensitive 77.7 ng/mL (<= 4.5)
[2025-02-22 11:41] LABS: Testosterone, Total 7.7 ng/dL (240-950)
== END 2025-02-18 01:39 | disposition home or self-care (01) ==
PROVIDERS: PCP Nurse Practitioner Family; Visit Provider Nurse Practitioner
DX: C61 Malignant neoplasm of prostate (principal); C79.51 Secondary malignant neoplasm of bone
CPT/HCPCS: 36415; 80053; 84153; 84403; 85025

== ENCOUNTER 2025-03-02 11:27 | Emergency (ER) | payer MEDICARE, SELFPAY ==
--- NOTE | 2025-03-02 11:30 | W.ED.GENAD ---
Discharge Plan Disposition Patient Disposition: Home Discharge Details Clinical Impression: Compression deformity of vertebra, Constipation, Pleural effusion on left, Pericardial effusion Primary Care Provider: FELIX CARMEN ED Provider: Manny Browning [place] Meds and New Rx's Prescriptions: New bisacodyl [Dulcolax (bisacodyl)] 5 mg tablet,delayed release (DR/EC) 5 mg PO QHS 4 Days Qty: 4 0RF polyethylene glycol 3350 [Miralax] 17 gram/dose powder 17 g PO DAILY Qty: 119 0RF Morphine Ir, 4 Tabs/Btl [Msir, 4 Tabs/Btl] 15 mg PO DISPENSE Qty: 4 0RF Continued amlodipine 10 mg tablet 10 mg PO DAILY Qty: 90 3RF lisinopril 40 mg tablet 40 mg PO DAILY Qty: 90 3RF triamcinolone acetonide 0.1 % cream 1 applic topical BID Qty: 30 0RF Rx Instructions: apply to rash area every 12 hours x 10 days omeprazole 40 mg capsule,delayed release(DR/EC) 40 mg PO DAILY Qty: 14 0RF Rx Instructions: Take 1 hour prior to eating or drinking senna 8.6 mg capsule 8.6 - 17.2 mg PO QHS Qty: 60 0RF ibuprofen 600 mg tablet 600 mg PO Q8H PRN (Reason: pain) Qty: 10 0RF Rx Instructions: Trial twice a day x 3 days. TAKE WITH FOOD (cheese/peanut butter) ascorbate calcium (vitamin C) 500 mg tablet 1 gm PO DAILY clopidogrel [Plavix] 75 mg tablet 75 mg PO DAILY Qty: 90 3RF baclofen 10 mg tablet 10 mg PO BID PRN Lupron Depot (4 month) 30 mg syringe kit 30 mg IM [id number] cholecalciferol (vitamin D3) [Vitamin D3] 25 mcg (1,000 unit) Tablet,Chewable 25 mcg PO DAILY sertraline [Zoloft] 25 mg tablet 1 tab PO DAILY Patient Comments: Take 1 tablet by mouth once a day tamsulosin 0.4 mg capsule 0.4 mg PO PRN PRN celecoxib 200 mg capsule 200 mg PO PRN morphine 15 mg tablet 15 mg PO Q8H PRNQty: 5 0RF Discharge Instructions Instructions: Constipation, Adult ED Additional Instructions: You are seen in the emergency department for your abdominal pain. You are CAT scan showed no sign of any blockages in your stomach. You have a compression deformity of one of the vertebrae in your lumbar spine. This may be the result of a pathological fracture from your cancer. As we discussed if you develop numbness or tingling between your legs any weakness or take any falls please return to the emergency department. You are also found to have a very small amount of fluid at the base of your left lung and a very small amount of fluid around your heart. These are incidental findings for which you should follow-up with your primary care provider as you will likely benefit from a chest x-ray and an echocardiogram which is an ultrasound of your heart. As we discussed if you develop chest pain trouble breathing or if you pass out please return to emergency department. Discharge Data Discharge Date/Time-TO BE ENTERED AT DEPARTURE: 03/02/25 14:14 HPI General Date/Time Provider Initiated Documentation: 03/02/25 11:30. HPI Narrative: MDM This is a quite well-appearing afebrile and not tachycardic 65-year-old male with metastatic prostate cancer found to have L2 compression fracture concerning for the possibility of bony metastases but no acute neurological deficits for which patient will be managed expectantly as an outpatient. Patient was found to have a small pericardial effusion. In the absence of chest pain tachycardia and hypotension I am not suspicious for tamponade and I do not feel the patient requires an emergent echocardiogram. He was found a tiny left-sided pleural effusion but is not hypoxic nor tachypneic so I do not feel he requires an emergent chest x-ray. He said no fevers no cough to suggest pneumonia. He is not obstipated and has no signs of small bowel obstruction on CT scan. Will we will treat with Dulcolax and prescribe MiraLAX. He has no flank pain to suggest ureterolithiasis. He has no black nor bloody stools to suggest acute GI bleed. No pain out of proportion to suggest necrotizing soft tissue infection. No rash to abdomen to suggest zoster. Lipase reassuring and not consistent with pancreatitis. The patient and I discussed that he should return to the ED if he developed any weakness of if he lost control of his bowels or bladder or if he developed any nausea or vomiting that did not stop. I asked asked healthy coordinator Rosio to have the patient seen by his primary care provider. She arranged appointment for the patient to be seen in 6 days at 10 AM next Saturday. Patient I discussed that he should return to the emergency department if his symptoms worsened if he developed chest pain shortness of breath or if he developed nausea or vomiting does not stop. We also discussed returning for any weakness or loss of bowel or bladder control. He understood his return indications and was discharged with an empiric trial of expectant outpatient management. I treated him with morphine in the emergency department. HPI This is a 65-year-old male with a history of metastatic prostate cancer arriving emergency department via private vehicle in the setting of abdominal pain. Patient reportedly has had intense abdominal pain for the past several weeks. He remotely has had a colonoscopy which showed polyps. He was nauseous and vomited 2 nights ago. Has never had any surgeries to his abdomen. He denies any black or bloody stools. He has not noticed any rash to his abdomen. He last had a bowel movement 2 nights ago. He is still passing gas. He denies fever or shortness of breath chest pain. He has no history of dysuria nor frequency. He denies ureterolithiasis. He takes clopidogrel for a prior CVA. He denies routine tobacco ethanol and illicits. Exam General: Well-appearing in no acute distress speaking in complete sentences. Head: Normocephalic, atraumatic. Eye: Extraocular eye movements intact. No conjunctival injection. No scleral icterus. Ear, nose, mouth, throat: Grossly normal inspection. Normal voice, handling secretions normally. Neck: Trachea midline. Cardiovascular: Well-perfused distal extremities. Regular rate and rhythm Respiratory: Nonlabored respiration. Clear lungs bilaterally. Gastrointestinal: Nondistended abdomen. Soft. Nontender. No rebound. No guarding. Musculoskeletal: No edema. Moving all 4 extremities spontaneously. Skin: Normal for age and race, grossly normal temperature and turgor. No acute rash. Neurologic: Alert and appropriate, no apparent acute deficits. 5 out of 5 bilateral lower extremity strength. No clonus. Intact sensation bilateral lower extremities in the feet. Psychiatric: Mood and manner are appropriate. Grooming and personal hygiene are appropriate. Related Data Home Medications ?Medication ?Instructions ?Recorded ?Confirmed cholecalciferol (vitamin D3) 25 25 mcg PO DAILY 06/11/2025 mcg (1,000 unit) chewable tablet (Vitamin D3) ascorbate calcium (vitamin C) 500 1 gm PO DAILY 06/24/2025 mg tablet triamcinolone acetonide 0.1 % 1 applic topical BID #30 grams 07/12/21 03/02/25 topical cream clopidogrel 75 mg tablet (Plavix) 75 mg PO DAILY #90 tabs 07/13/21 03/02/25 tamsulosin 0.4 mg capsule 0.4 mg PO PRN PRN 08/29/21 03/02/25 amlodipine 10 mg tablet 10 mg PO DAILY #90 tabs 09/09/21 03/02/25 lisinopril 40 mg tablet 40 mg PO DAILY #90 tab-caps 09/09/21 03/02/25 ibuprofen 600 mg tablet 600 mg PO Q8H PRN pain #10 tabs 10/12/21 03/02/25 sertraline 25 mg tablet (Zoloft) 1 tab PO DAILY 07/25/22 03/02/25 baclofen 10 mg tablet 10 mg PO BID PRN 11/22/22 03/02/25 leuprolide (4 month) 30 mg (4 30 mg IM [id number] 10/07/23 03/02/25 month) intramuscular syringe kit (Lupron Depot) celecoxib 200 mg capsule 200 mg PO PRN 12/21/24 03/02/25 morphine 15 mg immediate release 15 mg PO Q8H PRN #5 tabs 12/28/24 03/02/25 tablet omeprazole 40 mg capsule,delayed 40 mg PO DAILY #14 caps 02/25/25 03/02/25 release sennosides 8.6 mg capsule (senna) 8.6 - 17.2 mg (1 - 2 x 8.6 mg) PO 02/25/25 03/02/25 QHS #60 caps MORPHine IR, 4 tabs/btl [MSIR, 4 15 mg PO DISPENSE #4 caps 03/02/25 tabs/btl] bisacodyl 5 mg tablet,delayed 5 mg PO QHS 4 days #4 tabs 03/02/25 release (Dulcolax (bisacodyl)) polyethylene glycol 3350 17 17 g PO DAILY #119 grams 03/02/25 gram/dose oral powder (Miralax) Previous Rx's ?Medication ?Instructions ?Recorded triamcinolone acetonide 0.1 % 1 applic topical BID #30 grams 07/12/21 topical cream clopidogrel 75 mg tablet (Plavix) 75 mg PO DAILY #90 tabs 07/13/21 amlodipine 10 mg tablet 10 mg PO DAILY #90 tabs 09/09/21 lisinopril 40 mg tablet 40 mg PO DAILY #90 tab-caps 09/09/21 ibuprofen 600 mg tablet 600 mg PO Q8H PRN pain #10 tabs 10/12/21 morphine 15 mg immediate release 15 mg PO Q8H PRN #5 tabs 12/28/24 tablet omeprazole 40 mg capsule,delayed 40 mg PO DAILY #14 caps 02/25/25 release sennosides 8.6 mg capsule (senna) 8.6 - 17.2 mg (1 - 2 x 8.6 mg) PO 02/25/25 QHS #60 caps MORPHine IR, 4 tabs/btl [MSIR, 4 15 mg PO DISPENSE #4 caps 03/02/25 tabs/btl] bisacodyl 5 mg tablet,delayed 5 mg PO QHS 4 days #4 tabs 03/02/25 release (Dulcolax (bisacodyl)) polyethylene glycol 3350 17 17 g PO DAILY #119 grams 03/02/25 gram/dose oral powder (Miralax) Allergies Allergy/AdvReac Type Severity Reaction Status Date / Time Penicillins Allergy Unknown Unknown Verified 03/02/25 11:42 venlafaxine HCl (From Allergy Unknown Unknown Verified 03/02/25 11:42 Effexor) latex Allergy Itching Verified 03/02/25 11:42 General PAU: 4 Medical Decision Making Quality:SDOH Health Related Social Needs: Health related social needs feeling lonely/isolated (Z60.8) PFSH All Active Problems (Updated 03/02/25 @ 13:43 by Manny Browning MD) Pericardial effusion (Acute) Pleural effusion on left (Acute) Constipation (Acute) Compression deformity of vertebra (Acute) Constipation (Acute) Gastritis (Acute) Palliative care patient (Acute) Right leg weakness (Acute) Long toenail (Acute) Type 2 diabetes mellitus (Acute) Medication intolerance (Chronic) Physical and philosophical intolerance of medications .. Prefers no statin, despite Hx CVA. At risk of fracture due to osteoporosis (Acute) Due to prostate cancer Tx ... Listed on screening request from [facility] per pt. Vitamin D deficiency (Acute) Hypertension (Chronic) Dyslipidemia (Chronic) Prostate cancer (Chronic) Possible (+) findings, Dec 2021. Cancer free per pt report, 11/2020. Jan 2021 check in @ [facility]. 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 1 3-4-5 weeks Chondromalacia patellae of right knee (Acute) Right knee pain (Acute) Pain w/ ambulation, new fluid collection. x 1 month, with exacerbation during walk yesterday .. Encounter for rehabilitation (Acute) a. From an infarction. Elevated prostate specific antigen (PSA) (Acute 10/30/16) Right groin pain (Acute) Nocturia (Acute) Insomnia disorder related to known organic factor (Acute) Depression (Chronic) Anxiety (Chronic) Medical History Prostate cancer metastatic to bone Prediabetes Hx of colonic polyps History of prediabetes Hemiplegia affecting dominant side, post-stroke Ischemic stroke Urinary outflow obstruction H/O prostate cancer Anxiety with depression Rib pain on right side Weakness of right arm Tubular adenoma (~01/2021) Diverticula of colon Chemotherapy-induced fatigue leading to deconditioning Spasticity (02/22/15) Presumed post CVA (2013) Surgical History History of colonoscopy with polypectomy (~02/10/21) Colonoscopy - IV Sedation (10/07/15) DR.TERRY BURGOS Family History Brother Anxiety Father Diabetes Other Hypertension Social History Smoking/Tobacco Use Status: Never Smoking risk assessment performed?: Yes Alcohol Intake: current Alcohol Intake frequency: 0-2 drinks per day Drug use: Never Substance use type: does not use Adopted: No Caregiver/Support person: No Foster care: No Household members: family Housing: house Do you need help understanding health information?: Rarely current occupation: Unemployed Sexually active: No Do you think of yourself as: lesbian/kc/homosexual Current gender identity: male Do you feel safe at home: Yes Do you feel safe in your relationship?: Yes
[2025-03-02 11:38] VITALS: BP 124/82; PULSE 72; RESP 16; TEMP 36.6; O2SAT 95
[2025-03-02 12:09] VITALS: BP 124/82; PULSE 72; RESP 16; TEMP 36.6; O2SAT 95
--- NOTE | 2025-03-02 12:15 | DI.CT_ITS ---
Exam(s) CT ABDOMEN PELVIS W EXAM: CT ABDOMEN PELVIS W CLINICAL HISTORY: Epigastric pain TECHNIQUE: Imaging Protocol: Axial computed tomography images with coronal and sagittal reformatted images were created and reviewed. CONTRAST MATERIAL: Intravenous: Omnipaque 350 Contrast volume:75 mL Oral: No COMPARISON: CT CT CHEST/ABD/PEL WO from 04/14/2022 CR XR DEXA BONE DENSITY W/WO NILDA from 12/26/[address] PELVIC WO from 12/21/2024 FINDINGS: ABDOMEN: Lung Bases: Coronary artery calcifications are present. Minimal dependent atelectasis and small left pleural effusion. There is a small pericardial effusion. Liver: Normal density. No measurable mass. Portal, Superior Mesenteric, and Splenic Veins: Unremarkable. Gallbladder and Biliary Tract: No radiodense calculus or dilation. Pancreas: Normal density, no abnormal calcifications or inflammatory process. Spleen: Normal. Adrenals: No masses seen. Kidneys: Normal size, contour and axis. No radiodense stones or obstructive uropathy. No masses seen. Abdominal Aorta: Abdominal portion non-dilated. There is extensive calcification of the splenic arter y. Bowel: There are few diverticula seen in the colon but no evidence of acute diverticulitis. The righ t colon is collapsed limiting evaluation. No evidence of appendicitis. The stomach is not well dist ended limiting evaluation. No evidence of bowel obstruction or bowel wall thickening. Peritoneal Cavity: No ascites, collection or mesenteric inflammatory response. No free air. Lymph Nodes: Within normal limits. Bones: Since the prior examinations including a DEXA scan from 12/26/2023, there has been a compressio n fracture of L2 which is likely pathologic. There is a sclerotic focus seen within the bone. There is loss of less than 20 percent of the height of the vertebral body. Mild retropulsion is seen but no significant central spinal canal stenosis is present. There is also increased density seen in the T12 and T10 vertebra suggesting metastatic disease. No other compression fracture deformities are p resent. Soft Tissues: There is a small fat containing umbilical hernia. PELVIS: Bladder: Symmetric distention, no gross wall thickening. Reproductive Organs: Prostatic therapy seeds are present. Lymph Nodes: Within normal limits. Bones: Within normal limits for the patient's age. IMPRESSION: 1. No evidence of bowel obstruction or colitis/diverticulitis. 2. Colonic diverticulosis without evidence of acute diverticulitis. 3. Compression deformity of L2 not present on the most recent examination of this area which was a DE XA scan from 12/26/2023. There is a sclerotic focus seen prior in this vertebra in this likely reflec ts a pathologic fracture. There is also increased density seen of both the T12 and the T10 vertebral bodies suspicious for metastatic disease. Bone scan may be considered for further evaluation. 4. Tiny left pleural effusion and left basilar atelectasis. 5. Small pericardial effusion. RADIATION DOSE DELIVERED: 260.69mGy.cm Total DLP DATA REPOSITORY: All CT scans at this facility are submitted to the National Radiology Data Registry (NRDR) Dose Index Registry (DIR) with the [employer] (A[employer]). RADIATION OPTIMIZATION: All CT scans at this facility use at least one of these dose optimization te chniques: automated exposure control; mA and/or kV adjustment per patient size (includes targeted exa ms where dose is matched to clinical indication); or iterative reconstruction.
[2025-03-02 12:43] LABS: Abs Immature Grans 0.03 10^3/uL (0.0-0.06); Absolute Basophil Count 0.02 10^3/uL (0.0-0.2); Absolute Eosinophil Count 0.04 10^3/uL (0.0-0.7); Absolute Lymphocyte Count 0.83 10^3/uL (1.2-3.4); Absolute Monocyte Count 0.48 10^3/uL (0.1-0.8); Absolute Neutrophil Count 3.25 10^3/uL (1.2-6.7); Basophils % 0.4 %; Eosinophils % 0.9 %; HCT 39.2 % (40.0-50.0); HGB 13.2 g/dL (13.5-17.5); Immature Grans % 0.6 %; Lymphocytes % 17.8 %; MCH 29.5 pg (27.0-33.0); MCHC 33.7 % (32.0-36.0); MCV 88 fL (80-95); MPV 9.3 fL (8.0-11.0); Monocytes % 10.3 %; Platelet Count 209 10^3/uL (130-400); RBC 4.47 10^6/uL (4.36-5.78); RDW 12.6 % (11.8-14.1); RDW-SD 40.4 fL; WBC 4.65 10^3/uL (4.4-10.8)
[2025-03-02] MEDS: Omnipaque 350 MG/ML 100 ML BTL IJ (12:53)
[2025-03-02] MEDS: Normal Saline - Diluent 50 ML VIAL IJ (12:54)
[2025-03-02 13:05] LABS: ALT 13 U/L (16-63); AST 8 U/L (15-37); Albumin 3.5 g/dL (3.4-5.0); Alkaline Phosphatase 178 U/L (46-116); Anion Gap 9.6 mmol/L (3-11); BUN 22 mg/dL (7-18); Bilirubin, Total 0.5 mg/dL (0.2-1.0); CO2 28.4 mmol/L (21.0-32.0); Calcium 10.1 mg/dL (8.5-10.1); Chloride 104 mmol/L (98-107); Estimated GFR 84.05 (mL/min/1.73m2); Glucose 143 mg/dL (74-106); Lipase 24 U/L (<78); Potassium 4.1 mmol/L (3.5-5.1); Sodium 142 mmol/L (136-145); Total Protein 7.6 g/dL (6.4-8.2)
[2025-03-02 13:20] VITALS: BP 120/76; PULSE 78
[2025-03-02] MEDS: MORPHine IR 15 MG TAB PO (14:00)
[2025-03-02] MEDS: Docusate Sodium 100 MG/10 ML CUP PO (14:00)
[2025-03-02] MEDS: MORPHine IR 15 MG TAB, 4 TABS/BTL PO (14:05)
== END 2025-03-02 14:14 | disposition home or self-care (01) ==
PROVIDERS: Emergency Provider Emergency Medicine; PCP Nurse Practitioner Family
DX: R10.9 Unspecified abdominal pain (principal); J90 Pleural effusion, not elsewhere classified; I31.39 Other pericardial effusion (noninflammatory); M48.56XA Collapsed vertebra, not elsewhere classified, lumbar region, initial encounter for fracture; I69.351 Hemiplegia and hemiparesis following cerebral infarction affecting right dominant side; C61 Malignant neoplasm of prostate; C79.51 Secondary malignant neoplasm of bone; I10 Essential (primary) hypertension; Z79.01 Long term (current) use of anticoagulants; Z79.899 Other long term (current) drug therapy
CPT/HCPCS: 36415; 80053; 83690; 99285; 74177; 85025; 99284; J3490

== ENCOUNTER 2025-03-27 08:59 | Emergency (ER) | payer MEDICARE, SELFPAY ==
[2025-03-27 09:00] VITALS: BP 136/80; PULSE 86; RESP 15; TEMP 36.7; O2SAT 97
[2025-03-27 09:06] VITALS: BP 136/80; PULSE 86; RESP 15; TEMP 36.7; O2SAT 97
--- NOTE | 2025-03-27 09:22 | W.ED.GENAD ---
Discharge Plan Disposition Patient Disposition: Home Condition: Stable Discharge Details Clinical Impression: Nausea & vomiting Primary Care Provider: FELXI CARMEN ED Provider: Tonja Patten Home Meds and New Rx's Prescriptions: Continued amlodipine 10 mg tablet 10 mg PO DAILY Qty: 90 3RF lisinopril 40 mg tablet 40 mg PO DAILY Qty: 90 3RF triamcinolone acetonide 0.1 % cream 1 applic topical BID Qty: 30 0RF Rx Instructions: apply to rash area every 12 hours x 10 days senna 8.6 mg capsule 8.6 - 17.2 mg PO QHS Qty: 60 0RF ibuprofen 600 mg tablet 600 mg PO Q8H PRN (Reason: pain) Qty: 10 0RF Rx Instructions: Trial twice a day x 3 days. TAKE WITH FOOD (cheese/peanut butter) ascorbate calcium (vitamin C) 500 mg tablet 1 gm PO DAILY clopidogrel [Plavix] 75 mg tablet 75 mg PO DAILY Qty: 90 3RF baclofen 10 mg tablet 10 mg PO BID PRN Lupron Depot (4 month) 30 mg syringe kit 30 mg IM [id number] fentanyl 50 mcg/hr patch 72 hour 1 patch transdermal Q72H MDD 1 patch Qty: 10 0RF Rx Instructions: palliative care patient for cancer-related pain fentanyl 25 mcg/hr patch 72 hour See Rx Instructions transdermal Q72H MDD 75 mcg patch total (25 plus 50 Qty: 5 0RF Rx Instructions: 1 25 mcg patch, apply with a 50 mcg patch replace every 72 hours transdermally every 72 hours; hydromorphone 2 mg tablet 2 - 4 mg PO Q6H MDD 8 tabs Qty: 60 0RF Rx Instructions: for cancer related pain palliative care patient cholecalciferol (vitamin D3) [Vitamin D3] 25 mcg (1,000 unit) Tablet,Chewable 25 mcg PO DAILY sertraline [Zoloft] 25 mg tablet 1 tab PO DAILY Patient Comments: Take 1 tablet by mouth once a day tamsulosin 0.4 mg capsule 0.4 mg PO PRN PRN celecoxib 200 mg capsule 200 mg PO PRN polyethylene glycol 3350 [Miralax] 17 gram/dose powder 17 g PO DAILY Qty: 119 0RF Discharge Instructions Instructions: Home Treatments for Nausea and Vomiting When You Have Cancer, Nausea and Vomiting, Adult ED Additional Instructions: Your labs today are good. Your kidney functions are within normal limits. You were given a few tablets of Zofran to take home here. Take 1 every 8 hours 20 to 30 minutes before eating or drinking anything. You may also get the prescription that was called in for you by her other provider as previously scheduled.\ Slow small sips of fluids, bland diet advance as tolerated. Follow up with primary care provider in 3-5 days. Return to ED sooner if any worsening belly pain not relieved by medications, fever, or concerns. Thank you for allowing us to care for you today. Referrals: FELIX CARMEN, [employer] SET UP OPERATOR [Primary Care Provider] - Return if symptoms worsen Discharge Data Discharge Date/Time-TO BE ENTERED AT DEPARTURE: 03/27/25 11:33 HPI General Mode of arrival: ambulatory. Date/Time Provider Initiated Documentation: 03/27/25 09:02. Limitations to Documentation: no limitations. Information obtained by: patient, RN notes reviewed and old records reviewed. HPI Narrative: 65-year-old male presents to the ER with a chief complaint of nausea vomiting began last night after having a provicto radiation treatment for prostate cancer yesterday at [facility] [place]. He was creased his water intake yesterday and has been attempting to drink a lot of water. He normally takes hydromorphone for chronic pain she did take prior to the beginning of his emesis. He is complaining of some mid periumbilical abdominal pain that radiates into his back. Denies any diarrhea reports feeling chilled but no documented fever. Past medical history includes prostate cancer, anxiety depression, diverticula of colon, hypertension, he is on clopidogrel, or previous CVA. Other past medical history includes pleural effusion and he does see palliative care. Related Data Home Medications ?Medication ?Instructions ?Recorded ?Confirmed cholecalciferol (vitamin D3) 25 25 mcg PO DAILY 06/11/20 03/27/25 mcg (1,000 unit) chewable tablet (Vitamin D3) ascorbate calcium (vitamin C) 500 1 gm PO DAILY 06/24/20 03/27/25 mg tablet triamcinolone acetonide 0.1 % 1 applic topical BID #30 grams 07/12/21 03/27/25 topical cream clopidogrel 75 mg tablet (Plavix) 75 mg PO DAILY #90 tabs 07/13/21 03/27/25 tamsulosin 0.4 mg capsule 0.4 mg PO PRN PRN 08/29/21 03/27/25 amlodipine 10 mg tablet 10 mg PO DAILY #90 tabs 09/09/21 03/27/25 lisinopril 40 mg tablet 40 mg PO DAILY #90 tab-caps 09/09/21 03/27/25 ibuprofen 600 mg tablet 600 mg PO Q8H PRN pain #10 tabs 10/12/21 03/27/25 sertraline 25 mg tablet (Zoloft) 1 tab PO DAILY 07/25/22 03/27/25 baclofen 10 mg tablet 10 mg PO BID PRN 11/22/22 03/27/25 leuprolide (4 month) 30 mg (4 30 mg IM [id number] 10/07/23 03/27/25 month) intramuscular syringe kit (Lupron Depot) celecoxib 200 mg capsule 200 mg PO PRN 12/21/24 03/27/25 sennosides 8.6 mg capsule (senna) 8.6 - 17.2 mg (1 - 2 x 8.6 mg) PO 02/25/25 03/27/25 QHS #60 caps polyethylene glycol 3350 17 17 g PO DAILY #119 grams 03/02/25 03/27/25 gram/dose oral powder (Miralax) fentanyl 50 mcg/hr transdermal 1 patch transdermal Q72H #10 ea 03/18/25 03/27/25 patch fentanyl 25 mcg/hr transdermal See Rx Instructions transdermal 03/23/25 03/27/25 patch Q72H pain #5 ea hydromorphone 2 mg tablet 2 - 4 mg (1 - 2 x 2 mg) PO Q6H #60 03/23/25 03/27/25 tabs Previous Rx's ?Medication ?Instructions ?Recorded triamcinolone acetonide 0.1 % 1 applic topical BID #30 grams 07/12/21 topical cream clopidogrel 75 mg tablet (Plavix) 75 mg PO DAILY #90 tabs 07/13/21 amlodipine 10 mg tablet 10 mg PO DAILY #90 tabs 09/09/21 lisinopril 40 mg tablet 40 mg PO DAILY #90 tab-caps 09/09/21 ibuprofen 600 mg tablet 600 mg PO Q8H PRN pain #10 tabs 10/12/21 sennosides 8.6 mg capsule (senna) 8.6 - 17.2 mg (1 - 2 x 8.6 mg) PO 02/25/25 QHS #60 caps polyethylene glycol 3350 17 17 g PO DAILY #119 grams 03/02/25 gram/dose oral powder (Miralax) fentanyl 50 mcg/hr transdermal 1 patch transdermal Q72H #10 ea 03/18/25 patch fentanyl 25 mcg/hr transdermal See Rx Instructions transdermal 03/23/25 patch Q72H pain #5 ea hydromorphone 2 mg tablet 2 - 4 mg (1 - 2 x 2 mg) PO Q6H #60 03/23/25 tabs Allergies Allergy/AdvReac Type Severity Reaction Status Date / Time Penicillins Allergy Unknown Unknown Verified 03/27/25 09:06 venlafaxine HCl (From Allergy Unknown Unknown Verified 03/27/25 09:06 Effexor) latex Allergy Itching Verified 03/27/25 09:06 General Stated Complaint: Nausea/Vomit/Diar PAU: 3 Review of Systems All systems reviewed & are unremarkable except as noted in HPI and below Gastrointestinal Gastrointestinal: Reports abdominal pain, Reports nausea and Reports vomiting Exam Narrative Exam Narrative: Constitutional: Alert and oriented x3. Appears stated age. Normal body habitus. Head: Normocephalic, no trauma. Eyes: Pupils PERRL, Red reflex noted, EOM's intact. Eyelids symmetrical without lesions, discharge, or swelling. ENT: Bilateral TM's WNL, External ear normal to inspection, no mastoid TTP, swelling, or erythema, Nasal turbinates WNL, no nasal discharge. Normal dentition, Posterior pharynx WNL, no exudate. Chest: RRR, Normal S1, S2, distal pulses intact. Resp: Lungs clear to auscultation bilaterally, no wheezes, rales, or rhonchi. Abdomen: Soft, non-distended, Normoactive bowel sounds all 4 quads. Musculoskeletal: Normal gait, Moves all 4 extremities without difficulty. Skin: No suspicious rashes or lesions. Capillary refill less than 2 sec. appears pale. Neurologic: Cranial nerves II-XII intact. Alert and oriented x 3. Motor: No deficits noted. Sensory: Intact bilaterally all 4 extremities. Hematologic/Lymphatic: No ecchymosis, no lymphadenopathy. Course Vital Signs Vital signs: Vital Signs Temperature 36.7 C 03/27/25 09:00 Pulse 86 03/27/25 09:00 Respiratory Rate 15 03/27/25 09:00 Blood Pressure 136/80 03/27/25 09:00 Pulse Oximetry 97 03/27/25 09:00 Temperature 36.7 C 03/27/25 09:06 Temperature Source Oral 03/27/25 09:06 Pulse 86 03/27/25 09:06 Respiratory Rate 15 03/27/25 09:06 Blood Pressure 136/80 03/27/25 09:06 Blood Pressure Position Sitting 03/27/25 09:06 Pulse Oximetry 97 03/27/25 09:06 Oxygen Delivery Method Room Air 03/27/25 09:06 Oxygen Flow Rate 0 03/27/25 09:06 Pain Level 4 03/27/25 09:06 Medical Decision Making 65-year-old male presents to the ER with a chief complaint of nausea vomiting began last night after having a provicto radiation treatment for prostate cancer yesterday at [facility] [place]. He was creased his water intake yesterday and has been attempting to drink a lot of water. He normally takes hydromorphone for chronic pain she did take prior to the beginning of his emesis. He is complaining of some mid periumbilical abdominal pain that radiates into his back. Denies any diarrhea reports feeling chilled but no documented fever. Past medical history includes prostate cancer, anxiety depression, diverticula of colon, hypertension, he is on clopidogrel, or previous CVA. Other past medical history includes pleural effusion and he does see palliative care. After review of the medication is an IV radiation treatment and the recommendation is for radioactive precautions for 2 to 7 days. Will limit the time of staff to be in the room. Will contact the lab for recommendations for handling of his specimens. Labs show no leukocytosis, hemoglobin 12.8 hematocrit 38.9, sodium 141 potassium 4.0 BUN is 15 creatinine 1.0 GFR is 84 which is within normal limits, glucose 136 alk phos slightly high at 164 albumin is 3.2 lipase within normal limits. Will send patient home with a few tablets of Zofran and ODT, he is receiving a liter of normal saline. No further emesis noted. Patient is feeling better. Patient discharged with strict return instructions and home care and follow-up with his PCP. This text was generated using Panlation system, please disregard any oddities of phrase or misspellings. Medical Records Medical records reviewed: Yes I reviewed the patient's medical records. Lab Data Lab results reviewed: Yes I reviewed the patient's lab results. Labs: Laboratory Tests Range/Units 03/27/25 03/27/25 09:48 09:48 WBC (4.4-10.8) 10^3/uL 4.88 RBC (4.36-5.78) 10^6/uL 4.45 Hgb (13.5-17.5) g/dL 12.8 L Hct (40.0-50.0) % 38.9 L MCV (80-95) fL 87 MCH (27.0-33.0) pg 28.8 MCHC (32.0-36.0) % 32.9 RDW (11.8-14.1) % 11.6 L Plt Count (130-400) 10^3/uL 245 MPV (8.0-11.0) fL 9.3 Immature Gran % % 0.4 Neutrophils % % 87.5 Lymphocytes % % 5.5 Monocytes % % 6.4 Eosinophils % % 0.2 Basophils % % 0.0 Nucleated RBC % (0.0-0.3) % 0.0 Absolute Neutrophils (1.2-6.7) 10^3/uL 4.27 Absolute Lymphocytes (1.2-3.4) 10^3/uL 0.27 L Absolute Monocytes (0.1-0.8) 10^3/uL 0.31 Absolute Eosinophils (0.0-0.7) 10^3/uL 0.01 Absolute Basophils (0.0-0.2) 10^3/uL 0.00 Sodium (136-145) mmol/L 141 Potassium (3.5-5.1) mmol/L 4.0 Chloride (98-107) mmol/L 103 Carbon Dioxide (21.0-32.0) mmol/L 26.2 Anion Gap (3-11) mmol/L 11.8 H BUN (7-18) mg/dL 15 Creatinine (0.70-1.30) mg/dL 1.0 Est GFR (CKD-EPI 2020) (mL/min/1.73m2) 84.05 Glucose (74-106) mg/dL 136 H Calcium (8.5-10.1) mg/dL 10.0 Magnesium (1.8-2.4) mg/dL 2.0 Total Bilirubin (0.2-1.0) mg/dL 0.6 AST (15-37) U/L 12 L ALT (16-63) U/L 12 L Alkaline Phosphatase (46-116) U/L 164 H Total Protein (6.4-8.2) g/dL 7.4 Albumin (3.4-5.0) g/dL 3.2 L Lipase (<78) U/L 16 Cancelled Quality:SDOH Health Related Social Needs: Health related social needs feeling lonely/isolated (Z60.8) PFSH All Active Problems (Updated 03/27/25 @ 11:05 by Tonja Patten NP) Nausea & vomiting (Acute) Cancer related pain (Acute) Prostate cancer metastatic to bone (Acute) Pericardial effusion (Acute) Pleural effusion on left (Acute) Constipation (Acute) Compression deformity of vertebra (Acute) Gastritis (Acute) Palliative care patient (Acute) Right leg weakness (Acute) Long toenail (Acute) Type 2 diabetes mellitus (Acute) Medication intolerance (Chronic) Physical and philosophical intolerance of medications .. Prefers no statin, despite Hx CVA. At risk of fracture due to osteoporosis (Acute) Due to prostate cancer Tx ... Listed on screening request from [facility] per pt. Vitamin D deficiency (Acute) Hypertension (Chronic) Dyslipidemia (Chronic) Prostate cancer (Chronic) Possible (+) findings, Dec 2021. Cancer free per pt report, 11/2020. Jan 2021 check in @ [facility]. 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 1 3-4-5 weeks Chondromalacia patellae of right knee (Acute) Right knee pain (Acute) Pain w/ ambulation, new fluid collection. x 1 month, with exacerbation during walk yesterday .. Encounter for rehabilitation (Acute) a. From an infarction. Elevated prostate specific antigen (PSA) (Acute 10/30/16) Right groin pain (Acute) Nocturia (Acute) Insomnia disorder related to known organic factor (Acute) Depression (Chronic) Anxiety (Chronic) Medical History Constipation Prediabetes Hx of colonic polyps History of prediabetes Hemiplegia affecting dominant side, post-stroke Ischemic stroke Urinary outflow obstruction H/O prostate cancer Anxiety with depression Rib pain on right side Weakness of right arm Tubular adenoma (~01/2021) Diverticula of colon Chemotherapy-induced fatigue leading to deconditioning Spasticity (02/22/15) Presumed post CVA (2013) Surgical History History of colonoscopy with polypectomy (~02/10/21) Colonoscopy - IV Sedation (10/07/15) DR.TERRY BURGOS Family History Brother Anxiety Father Diabetes Other Hypertension Social History Smoking/Tobacco Use Status: Never Smoking risk assessment performed?: Yes Alcohol Intake: current Alcohol Intake frequency: holidays/special occasions only Drug use: Never Substance use type: does not use Adopted: No Caregiver/Support person: No Foster care: No Household members: family Housing: house Do you need help understanding health information?: Rarely current occupation: Unemployed Sexually active: No Do you think of yourself as: lesbian/kc/homosexual Current gender identity: male Do you feel safe at home: Yes Do you feel safe in your relationship?: Yes
[2025-03-27] MEDS: HYDROmorphone 2 MG/ML SYR 0.5 MG IVP (09:58)
[2025-03-27 09:59] LABS: Abs Immature Grans 0.02 10^3/uL (0.0-0.06); Absolute Eosinophil Count 0.01 10^3/uL (0.0-0.7); Absolute Lymphocyte Count 0.27 10^3/uL (1.2-3.4); Absolute Monocyte Count 0.31 10^3/uL (0.1-0.8); Absolute Neutrophil Count 4.27 10^3/uL (1.2-6.7); Eosinophils % 0.2 %; HCT 38.9 % (40.0-50.0); HGB 12.8 g/dL (13.5-17.5); Immature Grans % 0.4 %; Lymphocytes % 5.5 %; MCH 28.8 pg (27.0-33.0); MCHC 32.9 % (32.0-36.0); MCV 87 fL (80-95); MPV 9.3 fL (8.0-11.0); Monocytes % 6.4 %; Neutrophils % 87.5 %; Platelet Count 245 10^3/uL (130-400); RBC 4.45 10^6/uL (4.36-5.78); RDW 11.6 % (11.8-14.1); RDW-SD 37.4 fL; WBC 4.88 10^3/uL (4.4-10.8)
[2025-03-27] MEDS: Normal Saline 1,000 ML 1000 ML IV (09:59)
[2025-03-27] MEDS: Ondansetron 4 MG/2 ML VIAL IVP (09:59)
[2025-03-27 10:15] LABS: ALT 12 U/L (16-63); AST 12 U/L (15-37); Albumin 3.2 g/dL (3.4-5.0); Alkaline Phosphatase 164 U/L (46-116); Anion Gap 11.8 mmol/L (3-11); BUN 15 mg/dL (7-18); Bilirubin, Total 0.6 mg/dL (0.2-1.0); CO2 26.2 mmol/L (21.0-32.0); Chloride 103 mmol/L (98-107); Estimated GFR 84.05 (mL/min/1.73m2); Glucose 136 mg/dL (74-106); Lipase 16 U/L (<78); Sodium 141 mmol/L (136-145); Total Protein 7.4 g/dL (6.4-8.2)
[2025-03-27 10:36] VITALS: BP 138/85; PULSE 70; RESP 18; O2SAT 95
[2025-03-27] MEDS: Ondansetron O.D.T. 4 MG TABEF, 3 TABS/BTL PO (11:12)
[2025-03-27 11:33] VITALS: BP 152/75; PULSE 90; RESP 18; O2SAT 93
== END 2025-03-27 11:33 | disposition home or self-care (01) ==
PROVIDERS: Emergency Provider Registered Nurse Emergency; PCP Nurse Practitioner Family
DX: R11.10 Vomiting, unspecified (principal); G89.3 Neoplasm related pain (acute) (chronic); I10 Essential (primary) hypertension; E78.5 Hyperlipidemia, unspecified; E11.9 Type 2 diabetes mellitus without complications; C61 Malignant neoplasm of prostate; Z79.02 Long term (current) use of antithrombotics/antiplatelets; Z79.84 Long term (current) use of oral hypoglycemic drugs; Z92.3 Personal history of irradiation; I69.351 Hemiplegia and hemiparesis following cerebral infarction affecting right dominant side
CPT/HCPCS: 36415; 80053; 83690; 96361; 96374; 96375; 99284; 83735; 85025; J1171; J2405

== ENCOUNTER 2025-03-28 13:06 | Emergency (ER) | payer MEDICARE, SELFPAY ==
[2025-03-28 13:11] VITALS: BP 149/78; PULSE 78; RESP 18; TEMP 36.7; O2SAT 95
[2025-03-28 13:29] VITALS: BP 149/78; PULSE 78; RESP 18; TEMP 36.7; O2SAT 95
--- NOTE | 2025-03-28 13:38 | W.ED.GENAD ---
Discharge Plan Discharge Details Chief Complaint: Abd Prob Primary Care Provider: FELIX CARMEN ED Provider: Manny Browning Dimmitt Meds and New Rx's Prescriptions: No Action amlodipine 10 mg tablet 10 mg PO DAILY Qty: 90 3RF lisinopril 40 mg tablet 40 mg PO DAILY Qty: 90 3RF senna 8.6 mg capsule 8.6 - 17.2 mg PO QHS Qty: 60 0RF ibuprofen 600 mg tablet 600 mg PO Q8H PRN (Reason: pain) Qty: 10 0RF Rx Instructions: Trial twice a day x 3 days. TAKE WITH FOOD (cheese/peanut butter) ascorbate calcium (vitamin C) 500 mg tablet 1 gm PO DAILY clopidogrel [Plavix] 75 mg tablet 75 mg PO DAILY Qty: 90 3RF baclofen 10 mg tablet 10 mg PO BID PRN Lupron Depot (4 month) 30 mg syringe kit 30 mg IM [id number] fentanyl 50 mcg/hr patch 72 hour 1 patch transdermal Q72H MDD 1 patch Qty: 10 0RF Rx Instructions: palliative care patient for cancer-related pain fentanyl 25 mcg/hr patch 72 hour See Rx Instructions transdermal Q72H MDD 75 mcg patch total (25 plus 50 Qty: 5 0RF Rx Instructions: 1 25 mcg patch, apply with a 50 mcg patch replace every 72 hours transdermally every 72 hours; hydromorphone 2 mg tablet 2 - 4 mg PO Q6H MDD 8 tabs Qty: 60 0RF Rx Instructions: for cancer related pain palliative care patient cholecalciferol (vitamin D3) [Vitamin D3] 25 mcg (1,000 unit) Tablet,Chewable 25 mcg PO DAILY sertraline [Zoloft] 25 mg tablet 1 tab PO DAILY Patient Comments: Take 1 tablet by mouth once a day tamsulosin 0.4 mg capsule 0.4 mg PO PRN PRN polyethylene glycol 3350 [Miralax] 17 gram/dose powder 17 g PO DAILY Qty: 119 0RF morphine 15 mg tablet 15 mg PO TID PRN Patient Comments: TAKE ONE TABLET BY MOUTH EVERY 8 HOURS NEEDED FOR PAIN, MAXIMUM DAILY DOSE = 3 TABLETS HPI General Date/Time Provider Initiated Documentation: 03/28/25 13:09. HPI Narrative: MDM Emergent evaluation of abdominal pain in this 65-year-old normothermic and nontachycardic male with history of prostate cancer. Metastatic prostate cancer certainly a possibility. No loss of bowel or bladder control to suggest spinal cord met. No rash to suggest zoster. No pain out of proportion to suggest necrotizing soft tissue infection. Appendicitis is certainly on the differential. No diarrhea nor fevers make my suspicion lower for diverticulitis. Patient is not vomiting and has no past surgical history to his abdomen so not suspicious for small bowel obstruction. Ureterolithiasis is on the differential. Patient is not hypotensive nor vascular past my suspicion is lower for ruptured AAA. Will obtain basic labs treat with analgesia and antiemetics and reassess. Patient has no chest pain to suggest ACS I did not obtain ECG. No cough to suggest pneumonia. No shortness of breath to suggest PE. No dysuria or frequency to suggest UTI so I did not order urinalysis. No testicular pain to suggest torsion. 3:45 PM Patient's labs with no SAM. Mild anion gap but normal bicarbonate??not consistent with DKA. CBC showing mild normocytic anemia similar to yesterday. No thrombocytopenia. No leukocytosis. Patient signed out to Dr. Choi pending CT results. HPI This is a 65-year-old male with history of metastatic prostate cancer currently receiving Pluvicto treatment. Patient was seen yesterday for nausea and vomiting. He last received Pluvicto treatment 2 days ago. He has received a course of ondansetron as an outpatient and his nausea has improved. He denies fevers dysuria frequency rectal bleeding chest pain shortness of breath. No past surgical history to the abdomen. No history of ureterolithiasis. No falls recently. Exam General: Uncomfortable-appearing in no acute distress speaking in complete sentences. Head: Normocephalic, atraumatic. Eye: Extraocular eye movements intact. No conjunctival injection. No scleral icterus. Ear, nose, mouth, throat: Grossly normal inspection. Normal voice, handling secretions normally. Neck: Trachea midline. Cardiovascular: Well-perfused distal extremities. Respiratory: Nonlabored respiration. Gastrointestinal: Nondistended abdomen. Soft. Minimal central abdominal tenderness. No rebound. No guarding. Musculoskeletal: No edema. Moving all 4 extremities spontaneously. Skin: Normal for age and race, grossly normal temperature and turgor. No acute rash. Neurologic: Alert and appropriate, no apparent acute deficits. Psychiatric: Mood and manner are appropriate. Grooming and personal hygiene are appropriate. Related Data Home Medications ?Medication ?Instructions ?Recorded ?Confirmed cholecalciferol (vitamin D3) 25 25 mcg PO DAILY 06/11/20 03/28/25 mcg (1,000 unit) chewable tablet (Vitamin D3) ascorbate calcium (vitamin C) 500 1 gm PO DAILY 06/24/20 03/28/25 mg tablet clopidogrel 75 mg tablet (Plavix) 75 mg PO DAILY #90 tabs 07/13/21 03/28/25 tamsulosin 0.4 mg capsule 0.4 mg PO PRN PRN 08/29/21 03/28/25 amlodipine 10 mg tablet 10 mg PO DAILY #90 tabs 09/09/21 03/28/25 lisinopril 40 mg tablet 40 mg PO DAILY #90 tab-caps 09/09/21 03/28/25 ibuprofen 600 mg tablet 600 mg PO Q8H PRN pain #10 tabs 10/12/21 03/28/25 sertraline 25 mg tablet (Zoloft) 1 tab PO DAILY 07/25/22 03/28/25 baclofen 10 mg tablet 10 mg PO BID PRN 11/22/22 03/28/25 leuprolide (4 month) 30 mg (4 30 mg IM [id number] 10/07/23 03/28/25 month) intramuscular syringe kit (Lupron Depot) sennosides 8.6 mg capsule (senna) 8.6 - 17.2 mg (1 - 2 x 8.6 mg) PO 02/25/25 03/28/25 QHS #60 caps polyethylene glycol 3350 17 17 g PO DAILY #119 grams 03/02/25 03/28/25 gram/dose oral powder (Miralax) fentanyl 50 mcg/hr transdermal 1 patch transdermal Q72H #10 ea 03/18/25 03/28/25 patch fentanyl 25 mcg/hr transdermal See Rx Instructions transdermal 03/23/25 03/28/25 patch Q72H pain #5 ea hydromorphone 2 mg tablet 2 - 4 mg (1 - 2 x 2 mg) PO Q6H #60 03/23/25 03/28/25 tabs morphine 15 mg immediate release 15 mg PO TID PRN 03/28/25 03/28/25 tablet Previous Rx's ?Medication ?Instructions ?Recorded clopidogrel 75 mg tablet (Plavix) 75 mg PO DAILY #90 tabs 07/13/21 amlodipine 10 mg tablet 10 mg PO DAILY #90 tabs 09/09/21 lisinopril 40 mg tablet 40 mg PO DAILY #90 tab-caps 09/09/21 ibuprofen 600 mg tablet 600 mg PO Q8H PRN pain #10 tabs 10/12/21 sennosides 8.6 mg capsule (senna) 8.6 - 17.2 mg (1 - 2 x 8.6 mg) PO 02/25/25 QHS #60 caps polyethylene glycol 3350 17 17 g PO DAILY #119 grams 03/02/25 gram/dose oral powder (Miralax) fentanyl 50 mcg/hr transdermal 1 patch transdermal Q72H #10 ea 03/18/25 patch fentanyl 25 mcg/hr transdermal See Rx Instructions transdermal 03/23/25 patch Q72H pain #5 ea hydromorphone 2 mg tablet 2 - 4 mg (1 - 2 x 2 mg) PO Q6H #60 03/23/25 tabs Allergies Allergy/AdvReac Type Severity Reaction Status Date / Time Penicillins Allergy Unknown Unknown Verified 03/28/25 13:24 venlafaxine HCl (From Allergy Unknown Unknown Verified 03/28/25 13:24 Effexor) latex Allergy Itching Verified 03/28/25 13:24 General Stated Complaint: Abd Prob PAU: 3 Course Vital Signs Vital signs: Vital Signs Temperature 36.7 C 03/28/25 13:11 Pulse 78 03/28/25 13:11 Respiratory Rate 18 03/28/25 13:11 Blood Pressure 149/78 H 03/28/25 13:11 Pulse Oximetry 95 03/28/25 13:11 Temperature 36.7 C 03/28/25 13:29 Temperature Source Oral 03/28/25 13:29 Pulse 78 03/28/25 13:29 Respiratory Rate 18 03/28/25 13:29 Blood Pressure 149/78 H 03/28/25 13:29 Pulse Oximetry 95 03/28/25 13:29 Oxygen Delivery Method Room Air 03/28/25 13:29 Oxygen Flow Rate 0 03/28/25 13:29 Pain Level 6 03/28/25 13:29 Medical Decision Making Quality:SDOH Health Related Social Needs: Health related social needs feeling lonely/isolated (Z60.8) PFSH All Active Problems (Updated 03/27/25 @ 11:05 by Tonja Patten NP) Nausea & vomiting (Acute) Cancer related pain (Acute) Prostate cancer metastatic to bone (Acute) Pericardial effusion (Acute) Pleural effusion on left (Acute) Constipation (Acute) Compression deformity of vertebra (Acute) Gastritis (Acute) Palliative care patient (Acute) Right leg weakness (Acute) Long toenail (Acute) Type 2 diabetes mellitus (Acute) Medication intolerance (Chronic) Physical and philosophical intolerance of medications .. Prefers no statin, despite Hx CVA. At risk of fracture due to osteoporosis (Acute) Due to prostate cancer Tx ... Listed on screening request from [facility] per pt. Vitamin D deficiency (Acute) Hypertension (Chronic) Dyslipidemia (Chronic) Prostate cancer (Chronic) Possible (+) findings, Dec 2021. Cancer free per pt report, 11/2020. Jan [address] [facility]. 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 1 3-4-5 weeks Chondromalacia patellae of right knee (Acute) Right knee pain (Acute) Pain w/ ambulation, new fluid collection. x 1 month, with exacerbation during walk yesterday .. Encounter for rehabilitation (Acute) a. From an infarction. Elevated prostate specific antigen (PSA) (Acute 10/30/16) Right groin pain (Acute) Nocturia (Acute) Insomnia disorder related to known organic factor (Acute) Depression (Chronic) Anxiety (Chronic) Medical History Constipation Prediabetes Hx of colonic polyps History of prediabetes Hemiplegia affecting dominant side, post-stroke Ischemic stroke Urinary outflow obstruction H/O prostate cancer Anxiety with depression Rib pain on right side Weakness of right arm Tubular adenoma (~01/2021) Diverticula of colon Chemotherapy-induced fatigue leading to deconditioning Spasticity (02/22/15) Presumed post CVA (2013) Surgical History History of colonoscopy with polypectomy (~02/10/21) Colonoscopy - IV Sedation (10/07/15) DR.TERRY BURGOS Family History Brother Anxiety Father Diabetes Other Hypertension Social History Smoking/Tobacco Use Status: Never Smoking risk assessment performed?: Yes Alcohol Intake: current Alcohol Intake frequency: holidays/special occasions only Drug use: Never Substance use type: does not use Adopted: No Caregiver/Support person: No Foster care: No Household members: family Housing: house Do you need help understanding health information?: Rarely current occupation: Unemployed Sexually active: No Do you think of yourself as: lesbian/kc/homosexual Current gender identity: male Do you feel safe at home: Yes Do you feel safe in your relationship?: Yes
--- NOTE | 2025-03-28 14:30 | DI.CT_ITS ---
Exam(s) CT ABDOMEN PELVIS W EXAM: CT ABDOMEN PELVIS W CLINICAL HISTORY: Lower abdominal pain TECHNIQUE: Imaging Protocol: Axial computed tomography images with coronal and sagittal reformatted images were created and reviewed. CONTRAST MATERIAL: Intravenous: Omnipaque 350 Contrast volume:75 mL Oral: No COMPARISON: CT CT ABDOMEN PELVIS W from 03/02/2025 FINDINGS: ABDOMEN: Lung Bases: There is been an interval increase in size of the left pleural effusion and development o f a small right pleural effusion. There are subjacent infiltrates in the lower lobes which may repre sent atelectasis or pneumonia. Cardiomegaly. There is a small pericardial effusion. There are bila teral basilar infiltrates seen in the lower lobes and left lingula. Liver: Normal density. No measurable mass. Portal, Superior Mesenteric, and Splenic Veins: Unremarkable. Gallbladder and Biliary Tract: No radiodense calculus or dilation. Pancreas: Normal density, no abnormal calcifications or inflammatory process. Spleen: Normal. Adrenals: No suspicious masses are present. Kidneys: Normal size, contour and axis. No radiodense stones or obstructive uropathy. There is a stab le simple cyst in the left kidney. No follow-up is recommended. Abdominal Aorta: Abdominal portion non-dilated. Extensive atherosclerotic calcification is present. Bowel: No obstruction or bowel wall thickening. No evidence of appendicitis. Peritoneal Cavity: There is a small amount of ascites in the pelvis. No free air. Lymph Nodes: Within normal limits. Bones: Within normal limits for the patient's age. The compression deformity of L2 is unchanged comp ared to 03/02/2025. Sclerosis of the T10 and T12 vertebral bodies is again noted. Metastatic disease should be considered. No new compression deformities are seen. Soft Tissues: Small umbilical fat containing hernia is noted. PELVIS: Bladder: Symmetric distention, no gross wall thickening. Reproductive Organs: Metallic seeds are seen in the prostate bed. Lymph Nodes: Within normal limits. Bones: Within normal limits for the patient's age. IMPRESSION: 1. Interval increase in size of the left pleural effusion and development of a right pleural effusion . 2. Bilateral basilar infiltrates which may represent atelectasis or pneumonia. These have also progr essed since the prior examination. 3. Tiny amount of pelvic ascites. 4. Stable L2 compression deformity and sclerosis of the T10 and T12 vertebral bodies. Metastatic dis ease should be considered. 5. No acute abdominal or pelvic process. RADIATION DOSE DELIVERED: 256.31mGy.cm Total DLP DATA REPOSITORY: All CT scans at this facility are submitted to the National Radiology Data Registry (NRDR) Dose Index Registry (DIR) with the [employer] (ACR). RADIATION OPTIMIZATION: All CT scans at this facility use at least one of these dose optimization te chniques: automated exposure control; mA and/or kV adjustment per patient size (includes targeted exa ms where dose is matched to clinical indication); or iterative reconstruction.
[2025-03-28 14:37] LABS: Abs Immature Grans 0.02 10^3/uL (0.0-0.06); Absolute Basophil Count 0.01 10^3/uL (0.0-0.2); Absolute Lymphocyte Count 0.29 10^3/uL (1.2-3.4); Absolute Monocyte Count 0.47 10^3/uL (0.1-0.8); Absolute Neutrophil Count 4.22 10^3/uL (1.2-6.7); Basophils % 0.2 %; HCT 37.6 % (40.0-50.0); HGB 12.3 g/dL (13.5-17.5); Immature Grans % 0.4 %; Lymphocytes % 5.8 %; MCH 28.7 pg (27.0-33.0); MCHC 32.7 % (32.0-36.0); MCV 88 fL (80-95); MPV 9.1 fL (8.0-11.0); Monocytes % 9.4 %; Neutrophils % 84.2 %; Platelet Count 253 10^3/uL (130-400); RBC 4.29 10^6/uL (4.36-5.78); RDW 11.8 % (11.8-14.1); RDW-SD 37.8 fL; WBC 5.01 10^3/uL (4.4-10.8)
[2025-03-28 14:49] LABS: ALT 12 U/L (16-63); AST 12 U/L (15-37); Albumin 3.1 g/dL (3.4-5.0); Alkaline Phosphatase 158 U/L (46-116); Anion Gap 13.4 mmol/L (3-11); BUN 12 mg/dL (7-18); Bilirubin, Total 0.6 mg/dL (0.2-1.0); CO2 24.6 mmol/L (21.0-32.0); Calcium 9.7 mg/dL (8.5-10.1); Chloride 101 mmol/L (98-107); Estimated GFR 84.05 (mL/min/1.73m2); Glucose 116 mg/dL (74-106); Potassium 4.1 mmol/L (3.5-5.1); Sodium 139 mmol/L (136-145); Total Protein 7.2 g/dL (6.4-8.2)
[2025-03-28] MEDS: MORPHine 4 MG/ML SYR IVP (14:54)
[2025-03-28] MEDS: Normal Saline - Diluent 50 ML VIAL IJ (15:25)
[2025-03-28] MEDS: Omnipaque 350 MG/ML 100 ML BTL IJ (15:29)
[2025-03-28 16:26] VITALS: BP 156/76; PULSE 76; RESP 20; O2SAT 94
--- NOTE | 2025-03-28 16:34 | ED.PROG_ITS ---
Date of service: 03/28/25 Time of Service: 16:34 Medical Decision Making care assumed from off going provider. final disposition pending CT imaging. CT report reviewed, no acute process to explain patients pain. he is on a fairly significant high dose pain regimine at home including patch, hydromorphine and morphine. recommended continuing this medications scheduled. IV dialuded given prior to arrival. recommend close f/u with onc team. given multiple opiates at home, was also provided with narcan and instructions/indications for its use. Quality:SDOH Health Related Social Needs: Health related social needs feeling lonely/isolated (Z 60.8) Discharge Plan Disposition Patient Disposition: Home Discharge Details Clinical Impression: Cancer associated pain Primary Care Provider: FELIX CARMEN ED Provider: Ginger Choi Home Meds and New Rx's Prescriptions: No Action amlodipine 10 mg tablet 10 mg PO DAILY Qty: 90 3RF lisinopril 40 mg tablet 40 mg PO DAILY Qty: 90 3RF senna 8.6 mg capsule 8.6 - 17.2 mg PO QHS Qty: 60 0RF ibuprofen 600 mg tablet 600 mg PO Q8H PRN (Reason: pain) Qty: 10 0RF Rx Instructions: Trial twice a day x 3 days. TAKE WITH FOOD (cheese/peanut butter) ascorbate calcium (vitamin C) 500 mg tablet 1 gm PO DAILY clopidogrel [Plavix] 75 mg tablet 75 mg PO DAILY Qty: 90 3RF baclofen 10 mg tablet 10 mg PO BID PRN Lupron Depot (4 month) 30 mg syringe kit 30 mg IM [id number] fentanyl 50 mcg/hr patch 72 hour 1 patch transdermal Q72H MDD 1 patch Qty: 10 0RF Rx Instructions: palliative care patient for cancer-related pain fentanyl 25 mcg/hr patch 72 hour See Rx Instructions transdermal Q72H MDD 75 mcg patch total (25 plus 50 Qty: 5 0RF Rx Instructions: 1 25 mcg patch, apply with a 50 mcg patch replace every 72 hours transde rmally every 72 hours; hydromorphone 2 mg tablet 2 - 4 mg PO Q6H MDD 8 tabs Qty: 60 0RF Rx Instructions: for cancer related pain palliative care patient cholecalciferol (vitamin D3) [Vitamin D3] 25 mcg (1,000 unit) Tablet,Chewable 25 mcg PO DAILY sertraline [Zoloft] 25 mg tablet 1 tab PO DAILY Patient Comments: Take 1 tablet by mouth once a day tamsulosin 0.4 mg capsule 0.4 mg PO PRN PRN polyethylene glycol 3350 [Miralax] 17 gram/dose powder 17 g PO DAILY Qty: 119 0RF morphine 15 mg tablet 15 mg PO TID PRN Patient Comments: TAKE ONE TABLET BY MOUTH EVERY 8 HOURS NEEDED FOR PAIN, MAXIMUM DAILY DOSE = 3 TABLETS Discharge Instructions Additional Instructions: TAKE THE PAIN MEDICATION THAT YOU HAVE AT HOME. YOU CAN TAKE THE HYDROMORPHONE EVERY 6 HOURS, YOU CAN INCREASE THE MORPHINE TO EVERY 6 HOURS YOU HAVE BEEN SENT HOME WITH NARCAN, THIS MEDICATION SHOULD BE USED BY FAMILY MEMBERS IN CASE OF AN ACCIDENTAL OPIATE OVERDOSE PLEASE CONTACT YOUR CANCER TEAM TOMORROW TO DISCUSSED ADDITIONAL PAIN CONTROL PLAN
[2025-03-28] MEDS: HYDROmorphone 2 MG/ML SYR IVP (17:00)
[2025-03-28 17:10] VITALS: TEMP 36.8
== END 2025-03-28 17:10 | disposition home or self-care (01) ==
PROVIDERS: Emergency Medicine; Emergency Provider Emergency Medicine; PCP Nurse Practitioner Family
DX: R10.9 Unspecified abdominal pain (principal); G89.3 Neoplasm related pain (acute) (chronic); C61 Malignant neoplasm of prostate; I69.351 Hemiplegia and hemiparesis following cerebral infarction affecting right dominant side; I10 Essential (primary) hypertension; Z79.02 Long term (current) use of antithrombotics/antiplatelets; Z79.899 Other long term (current) drug therapy; Z92.21 Personal history of antineoplastic chemotherapy
CPT/HCPCS: 00123; 36415; 80053; 96374; 96375; 99285; 74177; 85025; J1171; J2270; J3490

== ENCOUNTER 2025-04-09 00:44 | Outpatient (CLI) | payer MEDICARE, SELFPAY ==
--- NOTE | 2025-04-09 | DI.RAD_ITS ---
Exam(s) XR CHEST 2V PA LATERAL EXAM: XR CHEST 2V PA LATERAL CLINICAL HISTORY: PERICARDIAL EFFUSION I31.9 PLEURAL EFFUSION J90 FU FROM AP CT 03/02/25 TECHNIQUE: 2D digital imaging was performed. Two views. COMPARISON: CR,XR XR CHEST 2V PA LATERAL from 06/11/2020 CR XR DEXA BONE DENSITY W/WO NILDA from 12/26/[address] ABDOMEN PELVIS W from 03/02/[address] ABDOMEN PELVIS W from 03/28/2025 FINDINGS: HEART: Limits of normal in size. Aorta: Mildly tortuous. PULMONARY VASCULATURE: Mildly prominent MEDIASTINUM: Unremarkable. LUNGS: Increased interstitial markings bilaterally. More focal densities at the left lung base. PLEURAL SPACE: Small bilateral pleural effusions, left greater than right, similar to previous CT sca n, although direct comparison is difficult due to differences in patient position. BONE:Unremarkable for age. SOFT TISSUES: Unremarkable. IMPRESSION: No change in size of small bilateral pleural effusions, left greater than right. Increased interstit ial markings could indicate CHF versus chronic changes. Question patchy increased densities at the l eft lung base infiltrate versus atelectasis. DATA REPOSITORY: RADIATION DOSE DELIVERED:
== END 2025-04-09 01:04 ==
LOC: DI 00:44
PROVIDERS: PCP Nurse Practitioner Family; Visit Provider Nurse Practitioner Family
DX: I31.9 Disease of pericardium, unspecified (principal); J90 Pleural effusion, not elsewhere classified
CPT/HCPCS: 71046

== ENCOUNTER 2025-04-12 02:47 | Outpatient (CLI) | payer MEDICARE, SELFPAY ==
--- NOTE | 2025-04-12 14:30 | DI.US_ITS ---
APPROVED REPORT EXAM: Comprehensive 2D, Doppler, and color-flow Echocardiogram Patient Location: Out-Patient Master Mechanic: Ben Curry RDCS (AE) Indications: Small pericardial effusion seen on imaging Conclusion Normal left ventricular wall thickness and chamber size. Ejection fraction of 60%. Wall motion is n ormal Normal right ventricular size and function Both atria are normal in size There is no structural or hemodynamically significant valvular disease Estimated right ventricular systolic pressure is 37 mmHg Ascending aorta measures 3.97 cm Trivial pericardial effusion Wall motion Left Ventricle The left ventricle is normal size. The left ventricular systolic function is normal. The left ventric ular ejection fraction is within the normal range. There is normal left ventricular wall thickness. T here is normal LV segmental wall motion. There is no ventricular septal defect visualized. LVEF is 60 %. Right Ventricle The right ventricle is normal size. The right ventricular systolic function is normal. Atria The left atrium size is normal. The right atrium size is normal. The interatrial septum is intact wit h no evidence for an atrial septal defect. Aortic Valve The aortic valve is normal in structure. Aortic valve is trileaflet. There is no aortic valvular sten osis. No aortic regurgitation is present. Mitral Valve The mitral valve is normal in structure. No evidence of mitral valve stenosis. Trace mitral regurgita tion. Tricuspid Valve The tricuspid valve is normal in structure. There is no tricuspid valve stenosis. Mild tricuspid regu rgitation. The RVSP is 36.8 mmHg. Pulmonic Valve The pulmonary valve is normal in structure. There is no pulmonic valvular stenosis. Trace pulmonic re gurgitation. Great Vessels The aortic root is normal in size. The ascending aorta is normal in size. The ascending aorta is mode rately dilated. IVC is normal in size and collapses >50% with inspiration. Pericardium Trivial pericardial effusion. 2D Dimensions IVSD d PLAX 0.88 cm M: 0.6-1.2 Ao Root d 3.02 cm M: 3.1 - 3.7 LVPW d PLAX 0.85 cm M: 0.6 - 1.2 Ao Asc Diam d 3.97 cm M: 2.6 - 3.4 LVID d PLAX 5.44 cm M: 4.2 - 5.8 LVDs 3.69 cm M: 2.5 - 4.0 LV EF Teichholz 59.9 % FS 32.20 % LV EDV (Teich) 143.6 mL LV ESV (Teich) 57.6 mL Stroke Vol Index (Teich) 53.40 M-Mode TAPSE 2.03 cm (M/F) >1.7 Auto EF LV EDV A4C 83.9 mL LV EDV A2C 94.9 mL LV EDV BP 90.2 mL LV ESV A4C 33.6 mL LV ESV A2C 39.5 mL LV ESV BP 36.3 mL LVEF(%) A4C 60.0 % LVEF(%) A2C 58.4 % LVEF(%) BP 59.8 % LV SV A4C 50.3 ml LV SV A2C 55.4 ml LV SV BP 53.9 ml LV CO A4C 4.0 L/min LV CO A2C 4.2 L/min LV CO BP 4.1 L/min HR A4C 78.74 BPM HR A2C 75.47 BPM LV EDV Index (BP) LA Volume LA Length A4C 4.0 cm LA Length A2C 5.1 cm LA Area A4C s 9.28 cm2 LA Area A2C s 13.81 cm2 LA Vol A4C A-L 18.19 mL LA Vol A2C A-L 31.88 mL LA Vol Biplane A-L 27.1 mL LA Vol/BSA A4C A-L LA Vol/BSA A2C A-L LA Vol/BSA BP A-L 16.8 mL/m2 LA Vol A4C MOD 16.9 mL LA Vol A2C MOD 31.0 mL LA Vol BP MOD 25.4 mL RA Volume RA Area A4C 6.7 cm2 RA ESV A4C (A-L) 9.2mL RA Vol/BSA A4C A-L RA Length A4C 4.1 cm RA ESV A4C (MOD) 8.9mL LV Diastology MV E' medial 0.080 (>0.07 m/s) MV E Vmax 1.06 (0.4-1.3 m/s) MV E/E' MED 13.17 (<14) MV A Vmax 1.00 (0.4-1.3 m/s) MV E' lateral 0.092 (>0.1 m/s) E/A Ratio 1.1 MV E/E' LAT 11.45 (<14) MV E' Average 0.086 m/s MV E/E'(average) 12.25 Aortic Valve AoV Vmax 1.47 m/s LVOT Vmax 1.33 m/s AoV Peak Grad 8.6 mmHg LVOT Peak Grad 7.1 mmHg AoV Area (Vmax) 2.34 cm2 LVOT VTI 0.298 m AoV VTI 0.326 m LVOT Mean Grad 3.6 mmHg AoV Mean Gordon. 1.02 m/s LVOT SV 77.14 mL AoV Mean Grad 4.6 mmHg LVOT Diam s 1.80 cm AoV Area (VTI) 2.37 cm2 AV Regurg Peak Gr. 8.64 mmHg Velocity Ratio 0.90 Mitral Valve MV DT 163 (160-240 msec) Pulmonary Valve PV Vmax 1.12 (0.5-1.5 m/s) RVOT Vmax 0.73 m/s PV Peak Grad 5.0 mmHg RVOT Peak Gr. 2.1 mmHg PV Mean Gordon 0.76 m/s RVOT VTI 0.150 m PV Mean Grad 2.6 mmHg RVOT Mean Gr. 1.2 mmHg Tricuspid Valve RA Pressure 3.00 mmHg TR Vmax 2.91 m/s TR Peak Grad 33.8 mmHg RVSP (TR) 36.8 mmHg
== END 2025-04-12 03:07 ==
PROVIDERS: PCP Nurse Practitioner Family; Visit Provider Internal Medicine Cardiovascular Disease
DX: I31.39 Other pericardial effusion (noninflammatory) (principal)
CPT/HCPCS: 93306

== ENCOUNTER 2025-04-15 14:18 | Outpatient (CLI) | payer MEDICARE, SELFPAY ==
[2025-04-15 16:41] LABS: Abs Immature Grans 0.01 10^3/uL (0.0-0.06); Absolute Basophil Count 0.01 10^3/uL (0.0-0.2); Absolute Eosinophil Count 0.04 10^3/uL (0.0-0.7); Absolute Lymphocyte Count 0.43 10^3/uL (1.2-3.4); Absolute Monocyte Count 0.46 10^3/uL (0.1-0.8); Basophils % 0.3 %; Eosinophils % 1.1 %; HCT 34.7 % (40.0-50.0); HGB 11.3 g/dL (13.5-17.5); Immature Grans % 0.3 %; Lymphocytes % 11.8 %; MCHC 32.6 % (32.0-36.0); MCV 86 fL (80-95); MPV 9.5 fL (8.0-11.0); Monocytes % 12.6 %; Neutrophils % 73.9 %; Platelet Count 219 10^3/uL (130-400); RBC 4.03 10^6/uL (4.36-5.78); RDW 11.9 % (11.8-14.1); RDW-SD 37.3 fL; WBC 3.65 10^3/uL (4.4-10.8)
[2025-04-15 17:41] LABS: ALT 8 U/L (16-63); AST 13 U/L (15-37); Alkaline Phosphatase 200 U/L (46-116); Anion Gap 8.3 mmol/L (3-11); BUN 25 mg/dL (7-18); Bilirubin, Total 0.3 mg/dL (0.2-1.0); CO2 26.7 mmol/L (21.0-32.0); CREATININE 0.9 mg/dL (0.70-1.30); Calcium 9.2 mg/dL (8.5-10.1); Chloride 103 mmol/L (98-107); Estimated GFR 95.37 (mL/min/1.73m2); Glucose 118 mg/dL (74-106); Potassium 4.4 mmol/L (3.5-5.1); Sodium 138 mmol/L (136-145); Total Protein 7.2 g/dL (6.4-8.2)
[2025-04-19 14:29] LABS: PSA, Ultrasensitive 249 ng/mL (<= 4.5)
[2025-04-21 10:52] LABS: Testosterone, Total <7.0 ng/dL (240-950)
== END 2025-04-15 14:19 | disposition home or self-care (01) ==
PROVIDERS: PCP Nurse Practitioner Family; Visit Provider Nurse Practitioner
DX: C61 Malignant neoplasm of prostate (principal); C79.51 Secondary malignant neoplasm of bone
CPT/HCPCS: 36415; 80053; 84153; 84403; 85025

== ENCOUNTER 2025-05-01 11:17 | Emergency (ER) | payer MEDICARE, SELFPAY ==
[2025-05-01] VITALS (26 sets, daily range): BP systolic 132–169; BP diastolic 64–92; PULSE 83–114; RESP 14–29; TEMP 36.5; O2SAT 93–97
[2025-05-01 11:54] LABS: Lactate 1.2 mmol/L (<or=2.0)
[2025-05-01 11:57] LABS: Abs Immature Grans 0.02 10^3/uL (0.0-0.06); Absolute Basophil Count 0.01 10^3/uL (0.0-0.2); Absolute Lymphocyte Count 0.37 10^3/uL (1.2-3.4); Absolute Monocyte Count 0.46 10^3/uL (0.1-0.8); Absolute Neutrophil Count 3.72 10^3/uL (1.2-6.7); Basophils % 0.2 %; HGB 11.8 g/dL (13.5-17.5); Immature Grans % 0.4 %; Lymphocytes % 8.1 %; MCH 27.2 pg (27.0-33.0); MCHC 32.8 % (32.0-36.0); MCV 83 fL (80-95); MPV 9.1 fL (8.0-11.0); Neutrophils % 81.3 %; Platelet Count 275 10^3/uL (130-400); RBC 4.34 10^6/uL (4.36-5.78); RDW 12.1 % (11.8-14.1); RDW-SD 36.5 fL; WBC 4.58 10^3/uL (4.4-10.8)
[2025-05-01] MEDS: Normal Saline - Diluent 50 ML VIAL IJ (12:01)
--- NOTE | 2025-05-01 12:06 | ED.GENADUL_ITS ---
Discharge Plan Disposition Patient Disposition: Home Condition: Stable Discharge Details Clinical Impression: Constipation due to opioid therapy, Hypertension, History of CVA (cerebrovascular accident), Type 2 diabetes mellitus, Prostate cancer metastatic to bone, Palliative care patient, Cancer related pain Primary Care Provider: FELIX CARMEN ED Provider: Valery Truong Home Meds and New Rx's Prescriptions: New polyethylene glycol 3350 [Miralax] 17 gram/dose powder 17 g PO BID Qty: 119 0RF senna 8.6 mg capsule 8.6 mg PO DAILY Qty: 30 0RF No Action amlodipine 10 mg tablet 10 mg PO DAILY Qty: 90 3RF lisinopril 40 mg tablet 40 mg PO DAILY Qty: 90 3RF senna 8.6 mg capsule 8.6 - 17.2 mg PO QHS Qty: 60 0RF ibuprofen 600 mg tablet 600 mg PO Q8H PRN (Reason: pain) Qty: 10 0RF Rx Instructions: Trial twice a day x 3 days. TAKE WITH FOOD (cheese/peanut butter) furosemide 20 mg tablet 20 mg PO DAILY PRN (Reason: edema) Qty: 30 0RF Rx Instructions: For edema fentanyl 100 mcg/hr patch 72 hour 1 patch transdermal Q72H MDD 1 patch Qty: 10 0RF Rx Instructions: for cancer related pain palliative care patient ascorbate calcium (vitamin C) 500 mg tablet 1 gm PO DAILY clopidogrel [Plavix] 75 mg tablet 75 mg PO DAILY Qty: 90 3RF baclofen 10 mg tablet 10 mg PO BID PRN Lupron Depot (4 month) 30 mg syringe kit 30 mg IM [id number] Ensure Liquid PO ondansetron 8 mg tablet,disintegrating 8 mg PO Q8H PRN sucralfate [Carafate] 1 gram tablet 1 g PO QID omeprazole 20 mg capsule,delayed release(DR/EC) 20 mg PO DAILY Qty: 30 4RF hydromorphone 2 mg tablet 2 - 4 mg PO Q6H MDD 8 tabs Qty: 60 0RF Rx Instructions: for cancer related pain palliative care patient cholecalciferol (vitamin D3) [Vitamin D3] 25 mcg (1,000 unit) Tablet,Chewable 25 mcg PO DAILY sertraline [Zoloft] 25 mg tablet 50 mg PO DAILY Patient Comments: Take 1 tablet by mouth once a day tamsulosin 0.4 mg capsule 0.4 mg PO PRN PRN polyethylene glycol 3350 [Miralax] 17 gram/dose powder 17 g PO DAILY Qty: 119 0RF Discharge Instructions Instructions: Constipation, Adult ED Additional Instructions: You were seen in the emergency department today for evaluation of abdominal pain which was found to be due to constipation. This probably occurred because you take opioid pain medications for your cancer pain. You had an enema and passed a large bowel movement with improvement in your symptoms of abdominal pain. Now that we have cleaned out your colon, it is important to start a more aggressive bowel regimen to ensure that you do not become so constipated again. I recommend that you start taking your MiraLAX 2 times per day. You can take your first dose in the morning with your omeprazole about 30 minutes before you eat breakfast. Your second dose can be taken without food in the mid-to-late afternoon. I want you to take your senna daily, this can also be taken in the morning with your other medications. Please increase your hydration and fiber in your diet. Our goal is for you to be passing 1 toothpaste-consistency stool per day. You may need to make adjustments to this medication regimen to ensure that you are meeting that goal. I placed prescriptions for both MiraLAX and senna, though these medications are often not reimbursed by insurance and may be cheaper to purchase [id number]. If this is the case, it will be equally effective and you should still take it as recommended. Please follow-up with your primary care provider in the next few days to discuss this visit and any symptoms that change, worsen, or persist. Thank you for allowing us to be part of your care. HPI General Mode of arrival: ambulatory . Date/Time Provider Initiated Documentation: 05/01/25 11:17 . Limitations to Documentation: no limitations . Information obtained by: patient, family and old records reviewed . HPI Narrative: This is a 65-year-old male patient with a past medical history significant for metastatic prostate cancer, type 2 diabetes, CVA, presenting for evaluation of abdominal pain. The patient reports that he has had this abdominal pain for about a month. He states that it radiates up to his right shoulder, and he has been managing it primarily with his pain regimen which includes fentanyl patches and oral hydromorphone. He was prompted to seek care today because last night he took 2 tablets of hydromorphone, and woke up with ongoing severe pain in the periumbilical region. He states that he has not had a bowel movement in 3 or 4 days, has been taking his MiraLAX as prescribed. The patient has also noted some bilateral peripheral edema that causes him discomfort, is currently on Lasix, 20 mg, and making urine normally. He has no history of abdominal surgeries, vomiting, dysuria, fever. Related Data Home Medications ?Medication ?Instructions ?Recorded ?Confirmed cholecalciferol (vitamin D3) 25 25 mcg PO DAILY 06/11/20 04/15/25 mcg (1,000 unit) chewable tablet (Vitamin D3) ascorbate calcium (vitamin C) 500 1 gm PO DAILY 06/24/20 04/15/25 mg tablet clopidogrel 75 mg tablet (Plavix) 75 mg PO DAILY #90 tabs 07/13/21 04/15/25 tamsulosin 0.4 mg capsule 0.4 mg PO PRN PRN 08/29/21 04/15/25 amlodipine 10 mg tablet 10 mg PO DAILY #90 tabs 09/09/21 04/15/25 lisinopril 40 mg tablet 40 mg PO DAILY #90 tab-caps 09/09/21 04/15/25 ibuprofen 600 mg tablet 600 mg PO Q8H PRN pain #10 tabs 10/12/21 04/15/25 baclofen 10 mg tablet 10 mg PO BID PRN 11/22/22 04/15/25 leuprolide (4 month) 30 mg (4 30 mg IM [id number] 10/07/23 04/15/25 month) intramuscular syringe kit (Lupron Depot) sennosides 8.6 mg capsule (senna) 8.6 - 17.2 mg (1 - 2 x 8.6 mg) PO 02/25/25 04/15/25 QHS #60 caps polyethylene glycol 3350 17 17 g PO DAILY #119 grams 03/02/25 04/15/25 gram/dose oral powder (Miralax) food supplemt, lactose-reduced ml PO 03/30/25 04/15/25 (Ensure oral liquid) ondansetron 8 mg disintegrating 8 mg PO Q8H PRN 03/31/25 04/15/25 tablet furosemide 20 mg tablet 20 mg PO DAILY PRN edema #30 tabs 04/08/25 04/15/25 sertraline 25 mg tablet (Zoloft) 50 mg PO DAILY 04/08/25 04/15/25 sucralfate 1 gram tablet (Carafate) 1 g PO QID 04/08/25 04/15/25 fentanyl 100 mcg/hr transdermal 1 patch transdermal Q72H #10 ea 04/15/25 04/15/25 patch omeprazole 20 mg capsule,delayed 20 mg PO DAILY #30 caps 04/29/25 release hydromorphone 2 mg tablet 2 - 4 mg (1 - 2 x 2 mg) PO Q6H #60 04/30/25 tabs polyethylene glycol 3350 17 17 g PO BID #119 grams 05/01/25 gram/dose oral powder (Miralax) sennosides 8.6 mg capsule (senna) 8.6 mg PO DAILY #30 caps 05/01/25 Previous Rx's ?Medication ?Instructions ?Recorded clopidogrel 75 mg tablet (Plavix) 75 mg PO DAILY #90 tabs 07/13/21 amlodipine 10 mg tablet 10 mg PO DAILY #90 tabs 09/09/21 lisinopril 40 mg tablet 40 mg PO DAILY #90 tab-caps 09/09/21 ibuprofen 600 mg tablet 600 mg PO Q8H PRN pain #10 tabs 10/12/21 sennosides 8.6 mg capsule (senna) 8.6 - 17.2 mg (1 - 2 x 8.6 mg) PO 02/25/25 QHS #60 caps polyethylene glycol 3350 17 17 g PO DAILY #119 grams 03/02/25 gram/dose oral powder (Miralax) furosemide 20 mg tablet 20 mg PO DAILY PRN edema #30 tabs 04/08/25 fentanyl 100 mcg/hr transdermal 1 patch transdermal Q72H #10 ea 04/15/25 patch omeprazole 20 mg capsule,delayed 20 mg PO DAILY #30 caps 04/29/25 release hydromorphone 2 mg tablet 2 - 4 mg (1 - 2 x 2 mg) PO Q6H #60 04/30/25 tabs polyethylene glycol 3350 17 17 g PO BID #119 grams 05/01/25 gram/dose oral powder (Miralax) sennosides 8.6 mg capsule (senna) 8.6 mg PO DAILY #30 caps 05/01/25 Allergies Allergy/AdvReac Type Severity Reaction Status Date / Time Penicillins Allergy Unknown Unknown Verified 04/08/25 09:45 venlafaxine HCl (From Allergy Unknown Unknown Verified 04/08/25 09:45 Effexor) latex Allergy Itching Verified 04/08/25 09:45 General Stated Complaint: Abd Prob PAU: 3 Exam Narrative Exam Narrative: Gen: Awake and alert, in no apparent distress HEENT: Non-icteric sclera Neck: Supple Lungs: No apparent respiratory distress, normal respiratory effort. CV: Appears well perfused, heart with regular rate and rhythm, strong distal pulses Abdomen: Non-distended, soft, minimal tenderness to palpation in the periumbilical region without rigidity, rebound, or guarding MSK: Moves 4 extremities without apparent limitation in ROM. 1+ peripheral edema bilateral lower extremities, symmetrical. Skin: Visualized skin without rashes, cyanosis. Neuro: Normal Gait, no obvious focal deficits or facial asymmetry. Speaks in full, clear sentences. Psych: Appropriate for situation. Course Vital Signs Vital signs: Vital Signs Temperature 36.5 C 05/01/25 11:26 Pulse 107 H 05/01/25 11:26 Respiratory Rate 18 05/01/25 11:26 Blood Pressure 147/89 H 05/01/25 11:26 Pulse Oximetry 97 05/01/25 11:26 Temperature 36.5 C 05/01/25 11:26 Temperature Source Oral 05/01/25 11:26 Pulse 94 H 05/01/25 11:50 Pulse 94 H 05/01/25 11:50 Respiratory Rate 15 05/01/25 11:50 Blood Pressure 140/73 05/01/25 11:45 Blood Pressure Mean 98 05/01/25 11:45 Blood Pressure Position Sitting 05/01/25 11:26 Pulse Oximetry 93 05/01/25 11:50 Oxygen Delivery Method Room Air 05/01/25 11:26 Oxygen Flow Rate 0 05/01/25 11:26 Lab/Test Results Lab/Test Results: Laboratory Tests Range/Units 05/01/25 11:40 WBC (4.4-10.8) 10^3/uL 4.58 RBC (4.36-5.78) 10^6/uL 4.34 L Hgb (13.5-17.5) g/dL 11.8 L Hct (40.0-50.0) % 36.0 L MCV (80-95) fL 83 MCH (27.0-33.0) pg 27.2 MCHC (32.0-36.0) % 32.8 RDW (11.8-14.1) % 12.1 Plt Count (130-400) 10^3/uL 275 MPV (8.0-11.0) fL 9.1 Immature Gran % % 0.4 Neutrophils % % 81.3 Lymphocytes % % 8.1 Monocytes % % 10.0 Eosinophils % % 0.0 Basophils % % 0.2 Nucleated RBC % (0.0-0.3) % 0.0 Absolute Neutrophils (1.2-6.7) 10^3/uL 3.72 Absolute Lymphocytes (1.2-3.4) 10^3/uL 0.37 L Absolute Monocytes (0.1-0.8) 10^3/uL 0.46 Absolute Eosinophils (0.0-0.7) 10^3/uL 0.00 Absolute Basophils (0.0-0.2) 10^3/uL 0.01 VBG Lactate (<or=2.0) mmol/L 1.2 Medical Decision Making This is a 65-year-old male patient presenting for evaluation of abdominal pain. Differential includes but is not limited to cancer related pain including metastases, considered bowel obstruction, severe constipation, stercoral colitis, fecal impaction. Considered mesenteric ischemia, appendicitis, diverticulitis, pancreatitis, hepatitis, cholecystitis. Considered urinary tract infection and kidney stone, as well as anemia, metabolic and electrolyte derangements, kidney injury. Considered sources of his fluid overload including heart failure, kidney disease, liver failure. No chest pain to suggest ACS. The lower extremity swelling is bilateral and symmetrical and have a lower concern for DVT. We will obtain laboratory studies to include CBC, CMP, magnesium, troponin, BNP, lipase, and lactate. Will obtain a urinalysis as well as a CT scan of the abdomen and pelvis to better characterize any abnormalities which might account for his symptoms. - I independently interpreted the laboratory studies, which show no significant leukocytosis, new or worsening anemia compared to priors, or thrombocytopenia. The chemistry panel is without evidence of electrolyte abnormality, kidney dysfunction, or liver injury. Troponin is negative and without interval increase on 1 hour delta recheck. Lactate is low, lipase negative. Urinalysis noninfectious. I reviewed the patient CT scan, which does show significant constipation, known metastases to the spine with associated fracture, not significantly changed from prior, and pleural effusions of which the patient was already aware. I did perform a rectal exam in the presence of DAVID Angelo, which revealed no fecal impaction, hemorrhoids, or other acute external abnormalities. Light brown stool on the glove without blood or melena. A soapsuds enema was provided, and the patient passed a large volume stool with improvement in his abdominal pain after this movement. I had an extended conversation with the patient regarding bowel regimens, and recommended that he increase his MiraLAX to twice daily, and initiate senna. He will also increase his hydration and fiber intake. At this time, the patient has had a full medical evaluation and is safe for discharge to home. They are hemodynamically stable, ambulatory, and tolerating PO. They are understanding of the follow-up plan and return precautions. They left our facility without incident. Valery Truong MD Quality:SDOH Health Related Social Needs: Health related social needs feeling lonely/isolated (Z 60.8) PFSH All Active Problems (Updated 05/01/25 @ 15:07 by Valery Truong MD) Constipation due to opioid therapy (Acute) Edema of lower extremity (Acute) Cancer related pain (Acute) Prostate cancer metastatic to bone (Acute) Gastritis (Acute) Palliative care patient (Acute) Right leg weakness (Acute) Long toenail (Acute) Type 2 diabetes mellitus (Acute) Medication intolerance (Chronic) Physical and philosophical intolerance of medications .. Prefers no statin, despite Hx CVA. At risk of fracture due to osteoporosis (Acute) Due to prostate cancer Tx ... Listed on screening request from [facility] per pt. Vitamin D deficiency (Acute) Hypertension (Chronic) Dyslipidemia (Chronic) Prostate cancer (Chronic) Possible (+) findings, Dec 2021. Cancer free per pt report, 11/2020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 1 3-4-5 weeks Chondromalacia patellae of right knee (Acute) Right knee pain (Acute) Pain w/ ambulation, new fluid collection. x 1 month, with exacerbation during walk yesterday .. Encounter for rehabilitation (Acute) a. From an infarction. Elevated prostate specific antigen (PSA) (Acute 10/30/16) Right groin pain (Acute) Nocturia (Acute) Insomnia disorder related to known organic factor (Acute) Depression (Chronic) Anxiety (Chronic) Medical History Constipation Prediabetes Hx of colonic polyps History of prediabetes Hemiplegia affecting dominant side, post-stroke Ischemic stroke Urinary outflow obstruction H/O prostate cancer Anxiety with depression Rib pain on right side Weakness of right arm Tubular adenoma (~01/2021) Diverticula of colon Chemotherapy-induced fatigue leading to deconditioning Spasticity (02/22/15) Presumed post CVA (2013) Surgical History History of colonoscopy with polypectomy (~02/10/21) Colonoscopy - IV Sedation (10/07/15) DR.TERRY BURGOS Family History Brother Anxiety Father Diabetes Other Hypertension Social History Smoking/Tobacco Use Status: Never Smoking risk assessment performed?: Yes Alcohol Intake: current Alcohol Intake frequency: holidays/special occasions only Drug use: Never Substance use type: does not use Adopted: No Caregiver/Support person: No Foster care: No Household members: family Housing: house Do you need help understanding health information?: Rarely current occupation: Unemployed Sexually active: No Do you think of yourself as: lesbian/kc/homosexual Current gender identity: male Do you feel safe at home: Yes Do you feel safe in your relationship?: Yes
[2025-05-01] MEDS: Omnipaque 350 MG/ML 100 ML BTL 75 ML IJ (12:14)
[2025-05-01 12:15] LABS: ALT 8 U/L (16-63); AST 16 U/L (15-37); Albumin 2.9 g/dL (3.4-5.0); Alkaline Phosphatase 191 U/L (46-116); Anion Gap 9.4 mmol/L (3-11); BUN 16 mg/dL (7-18); Bilirubin, Total 0.5 mg/dL (0.2-1.0); CO2 26.6 mmol/L (21.0-32.0); CREATININE 0.7 mg/dL (0.70-1.30); Calcium 9.9 mg/dL (8.5-10.1); Chloride 97 mmol/L (98-107); Estimated GFR 102.89 (mL/min/1.73m2); Glucose 150 mg/dL (74-106); Potassium 3.7 mmol/L (3.5-5.1); Sodium 133 mmol/L (136-145); Total Protein 7.5 g/dL (6.4-8.2); Troponin I 19 ng/L (<or=76)
--- NOTE | 2025-05-01 12:16 | DI.CT_ITS ---
Exam(s) CT ABDOMEN PELVIS W EXAM: CT ABDOMEN PELVIS W CLINICAL HISTORY: periumbilical pain, constipation, hx prostate Ca. TECHNIQUE: Imaging Protocol: Axial computed tomography images with coronal and sagittal reformatted images were created and reviewed CONTRAST MATERIAL: Intravenous: Omnipaque-350 100cc Oral: None COMPARISON: CT CT ABDOMEN PELVIS W from 03/28/2025 FINDINGS: VISUALIZED LUNG BASES: Although the previously present small bilateral pleural effusions have resolve d, there are diffuse bilateral lower lung increased markings with some nodularity and there is also s ome confluent infiltrate in the partially included lingular segment of the left lung. There is also a small pericardial effusion which has slightly increased in size when compared 03/28/2025. ABDOMEN: There is no ascites. LIVER: There are no focal hepatic lesions evident. No dilated intrahepatic ducts. GALLBLADDER/BILIARY: No obvious gallbladder pathology. CBD is not dilated. PANCREAS: No evidence of pancreatic mass nor dilatation of the pancreatic duct. SPLEEN: Spleen is not enlarged. No obvious intrasplenic lesions. Splenic and portal veins are paten t. ADRENALS: There are no significant adrenal masses. KIDNEYS:No cysts evident. No solid renal masses. No calculi nor hydronephrosis.. ABDOMINAL AORTA: Abdominal aorta is calcified but not significantly enlarged. The splenic artery is heavily calcified but without evidence of splenic artery aneurysm. LYMPH NODES:There is no retroperitoneal nor paraaortic adenopathy. ABDOMINAL WALL: No evidence of significant anterior abdominal wall nor inguinal hernia. GI: No evidence of small-bowel obstruction. There is abundant fecal material noted throughout the co maria isabel consistent with probable constipation. There is no significant diverticular disease of the colon and sigmoid. Also no obvious colitis pattern. PELVIS: GI: No evidence of appendicitis. No diverticulitis LYMPH NODES: There is no intrapelvic nor inguinal adenopathy. REPRODUCTIVE: Radiation seeds noted in the prostate region. Prostate gland is not enlarged. Seminal vesicles are small. There is no obturator adenopathy and there are no enlarged lymph nodes adjacent to the branches of the internal iliac arteries. URINARY BLADDER: There is uniform thickening of the urinary bladder wall although this may be exagger ated by under distension. Pelvic ureters are not dilated. OSSEOUS: L2 compression fracture appears unchanged. May be pathologic as there is some sclerosis aga in evident in this vertebral body. There is also sclerotic change in other vertebral bodies suspicio us for blastic metastatic disease, this evident in the visualized T9, T10 and T12 vertebral bodies as well as in L5. IMPRESSION: 1. There increased markings in bilateral nodularity in both lung bases. There is a possibly of lymph atic metastatic spread of disease. The previously present small bilateral pleural effusions have res olved. 2. There is a small pericardial effusion but the the size of the pericardial effusion is slightly inc reased when compared to the prior study 3. Abundant fecal material is noted throughout the colon which may indicate constipation. There is n o evidence of significant diverticular disease and there is no colitis pattern evident. 4. Urinary bladder wall is uniformly thickened but this is probably related to under distension. 5. Radiation seeds are noted in the nonenlarged prostate. There is no obturator adenopathy nor othe r adenopathy in the pelvis and no evidence of para-aortic adenopathy. 6. Multilevel diffuse sclerotic bone metastases again noted. Compression deformity at superior endp late of L2 appears unchanged from the prior study. Preliminary report by [facility] was reviewed RADIATION DOSE DELIVERED: 220.13mGy.cm Total DLP DATA REPOSITORY: All CT scans at this facility are submitted to the National Radiology Data Registry (NRDR) Dose Index Registry (DIR) with the [employer] (ACR). RADIATION OPTIMIZATION: All CT scans at this facility use at least one of these dose optimization te chniques: automated exposure control; mA and/or kV adjustment per patient size (includes targeted exa ms where dose is matched to clinical indication); or iterative reconstruction.
[2025-05-01 12:19] LABS: NT-proBNP 231 pg/mL (<300)
[2025-05-01 12:22] LABS: Lipase 14 U/L (<78)
--- NOTE | 2025-05-01 12:53 | DI.VRAD_ITS ---
PROCEDURE INFORMATION: Exam: CT Abdomen And Pelvis With Contrast Exam date and time: 05/01/2025 12:05 PM Age: 65 years old Clinical indication: Pain; Other: Perumbilical; HX prostate CA chemo 1sr month TECHNIQUE: Imaging protocol: Computed tomography of the abdomen and pelvis with contrast. Radiation optimization: All CT scans at this facility use at least one of these dose optimization techniques: automated exposure control; mA and/or kV adjustment per patient size (includes targeted exams where dose is matched to clinical indication); or iterative reconstruction. Contrast material: OMNI 350; Contrast volume: 75 ml; Contrast route: INTRAVENOUS (IV); COMPARISON: CT ABDOMEN PELVIS W 03/28/2025 3:33 PM FINDINGS: Lungs: Diffuse bilateral lower lung nodularity. Nodules measure up to 11 mm. Pleural spaces: Fluid present in the major fissures. Small left pleural effusion. Heart: Cardiomegaly. Small pericardial effusion. Liver: No definite mass lesions within the liver. Gallbladder and biliary ducts: Normal. No calcified stones. No ductal dilation. Pancreas: Normal. No ductal dilation. Spleen: Normal. No splenomegaly. Adrenal glands: Normal. No mass. Kidneys and ureters: No hydronephrosis. Stomach and bowel: Constipation. No small bowel dilatation or obstruction. Appendix: No evidence of appendicitis. Intraperitoneal space: Unremarkable. No free air. No significant fluid collection. Vasculature: Extensive splenic artery calcifications. Lymph nodes: Unremarkable. No enlarged lymph nodes. Urinary bladder: Unremarkable as visualized. Reproductive: Prostate radiation seeds. Bones/joints: Multiple diffuse sclerotic bone metastasis. Compression deformity superior endplate of L2. Metastasis involve nearly all of the thoracic and lumbar spine as well as the pelvis. Thoracolumbar scoliosis. Soft tissues: Small umbilical hernia. No inflammatory changes in the abdominal wall or hernia. IMPRESSION: 1. Diffuse skeletal metastasis. 2. Bilateral lower lung nodularity. Possible lymphatic spread of tumor/metastasis. 3. Small left pleural effusion. Small pericardial effusion. 4. Constipation. Dictated and Authenticated by: Tanner Medellin MD. Orderin St. Tuan Rasmussen MD
[2025-05-01 13:07] LABS: Troponin I 20 ng/L (<or=76)
[2025-05-01 13:10] LABS: Bilirubin Negative (Negative); Blood Negative (Negative); Clarity Clear (Clear); Glucose Negative (Negative); Ketones 15 mg/dL (Negative); Leukocyte Esterase Negative (Negative); Nitrite Negative (Negative)
[2025-05-01] MEDS: Acetaminophen 500 MG TAB 1000 MG PO (13:52)
[2025-05-01] MEDS: HYDROmorphone 2 MG TAB PO (13:52)
== END 2025-05-01 15:28 | disposition home or self-care (01) ==
PROVIDERS: Emergency Provider Emergency Medicine; PCP Nurse Practitioner Family
DX: C61 Malignant neoplasm of prostate (principal); C79.51 Secondary malignant neoplasm of bone; G89.3 Neoplasm related pain (acute) (chronic); Z60.8 Other problems related to social environment
CPT/HCPCS: 99284; 99285; 36415; 80053; 83690; 74177; 81003; 83605; 83735; 83880; 84484; 85025; J3490

== ENCOUNTER 2025-05-06 01:16 | Inpatient (IN) | payer MEDICARE, SELFPAY ==
[2025-05-06 01:32] VITALS: BP 158/92; PULSE 105; RESP 19; O2SAT 94
--- NOTE | 2025-05-06 01:45 | RT.EKG_ITS ---
APPROVED REPORT Exam: Resting ECG Reason for Exam: chest pain Patient Location: E HR:101 bpm ECG Measurements Heart Rate 101 AXIS NE 133 P 23 QRSd 93 QRS -11 QT 343 T 25 QTc 446 Conclusion Sinus tachycardia...rate> 99 Probable left atrial enlargement...P >50mS, <-0.10mV V1 I have reviewed and interpreted ECG and agree with software generated interpretation.
--- NOTE | 2025-05-06 01:56 | ED.GENADUL_ITS ---
Discharge Plan Discharge Details Chief Complaint: Nk/Back Pain Clinical Impression: Cancer related pain, Pneumonia, Hypokalemia Primary Care Provider: FELIX CARMEN ED Provider: Dani Casillas Home Meds and New Rx's Prescriptions: No Action amlodipine 10 mg tablet 10 mg PO DAILY Qty: 90 3RF lisinopril 40 mg tablet 40 mg PO DAILY Qty: 90 3RF senna 8.6 mg capsule 8.6 - 17.2 mg PO QHS Qty: 60 0RF ibuprofen 600 mg tablet 600 mg PO Q8H PRN (Reason: pain) Qty: 10 0RF Rx Instructions: Trial twice a day x 3 days. TAKE WITH FOOD (cheese/peanut butter) furosemide 20 mg tablet 20 mg PO DAILY PRN (Reason: edema) Qty: 30 0RF Rx Instructions: For edema ascorbate calcium (vitamin C) 500 mg tablet 1 gm PO DAILY clopidogrel [Plavix] 75 mg tablet 75 mg PO DAILY Qty: 90 3RF baclofen 10 mg tablet 10 mg PO BID PRN Lupron Depot (4 month) 30 mg syringe kit 30 mg IM [id number] Ensure Liquid PO ondansetron 8 mg tablet,disintegrating 8 mg PO Q8H PRN sucralfate [Carafate] 1 gram tablet 1 g PO QID omeprazole 20 mg capsule,delayed release(DR/EC) 20 mg PO DAILY Qty: 30 4RF hydromorphone 2 mg tablet 2 - 4 mg PO Q6H MDD 8 tabs Qty: 60 0RF Rx Instructions: for cancer related pain palliative care patient hydromorphone 4 mg tablet 4 mg PO Q4H MDD 6 tabs PRN (Reason: pain) Qty: 30 0RF fentanyl 100 mcg/hr patch 72 hour 1 patch transdermal Q72H MDD 175mcg/hr Qty: 5 0RF Rx Instructions: for cancer related pain, to be used w/75mcg patch for total dose of 175mcg/hr palliative care patient fentanyl 75 mcg/hr patch 72 hour 1 patch transdermal Q72H MDD 175mcg/hr Qty: 5 0RF Rx Instructions: to be used w/100mcg patches for total dose of 175mcg/hr cholecalciferol (vitamin D3) [Vitamin D3] 25 mcg (1,000 unit) Tablet,Chewable 25 mcg PO DAILY sertraline [Zoloft] 25 mg tablet 50 mg PO DAILY Patient Comments: Take 1 tablet by mouth once a day polyethylene glycol 3350 [Miralax] 17 gram/dose powder 17 g PO DAILY Qty: 119 0RF polyethylene glycol 3350 [Miralax] 17 gram/dose powder 17 g PO BID Qty: 119 0RF senna 8.6 mg capsule 8.6 mg PO DAILY Qty: 30 0RF HPI General Date/Time Provider Initiated Documentation: 05/06/25 01:19 . HPI Narrative: This is a 65-year-old male patient with a past medical history significant for metastatic prostate cancer, type 2 diabetes, CVA, who is currently a palliative care patient on Dilaudid and fentanyl, who presents today for evaluation of generalized pain. Patient states he regularly has significant abdominal pain, he was here about a week ago, had CT imaging which revealed severe constipation and metastatic lesions, but no other acute process. Pain in the abdomen has recurred since then, he has also developed pain in his left shoulder/chest. He denies vomiting. He denies diarrhea. He did give himself an enema today which elicited a bowel movement, but no resolution of the pain. He denies syncope. He denies any other complaints at this time. He has been taking his fentanyl and Dilaudid without improvement of his symptoms. He did contact his palliative care team tonkristopher and they recommended he come to the ER for further asse ssment. Related Data Home Medications ?Medication ?Instructions ?Recorded ?Confirmed cholecalciferol (vitamin D3) 25 25 mcg PO DAILY 06/11/20 05/06/25 mcg (1,000 unit) chewable tablet (Vitamin D3) ascorbate calcium (vitamin C) 500 1 gm PO DAILY 06/24/20 05/06/25 mg tablet clopidogrel 75 mg tablet (Plavix) 75 mg PO DAILY #90 tabs 07/13/21 05/06/25 amlodipine 10 mg tablet 10 mg PO DAILY #90 tabs 09/09/21 05/06/25 lisinopril 40 mg tablet 40 mg PO DAILY #90 tab-caps 09/09/21 05/06/25 ibuprofen 600 mg tablet 600 mg PO Q8H PRN pain #10 tabs 10/12/21 05/06/25 baclofen 10 mg tablet 10 mg PO BID PRN 11/22/22 05/06/25 leuprolide (4 month) 30 mg (4 30 mg IM [id number] 10/07/23 05/06/25 month) intramuscular syringe kit (Lupron Depot) sennosides 8.6 mg capsule (senna) 8.6 - 17.2 mg (1 - 2 x 8.6 mg) PO 02/25/25 05/06/25 QHS #60 caps polyethylene glycol 3350 17 17 g PO DAILY #119 grams 03/02/25 05/06/25 gram/dose oral powder (Miralax) food supplemt, lactose-reduced ml PO 03/30/25 04/15/25 (Ensure oral liquid) ondansetron 8 mg disintegrating 8 mg PO Q8H PRN 03/31/25 05/06/25 tablet furosemide 20 mg tablet 20 mg PO DAILY PRN edema #30 tabs 04/08/25 05/06/25 sertraline 25 mg tablet (Zoloft) 50 mg PO DAILY 04/08/25 04/15/25 sucralfate 1 gram tablet (Carafate) 1 g PO QID 04/08/25 05/06/25 omeprazole 20 mg capsule,delayed 20 mg PO DAILY #30 caps 04/29/25 05/06/25 release hydromorphone 2 mg tablet 2 - 4 mg (1 - 2 x 2 mg) PO Q6H #60 04/30/25 05/06/25 tabs polyethylene glycol 3350 17 17 g PO BID #119 grams 05/01/25 05/06/25 gram/dose oral powder (Miralax) sennosides 8.6 mg capsule (senna) 8.6 mg PO DAILY #30 caps 05/01/25 05/06/25 fentanyl 100 mcg/hr transdermal 1 patch transdermal Q72H #5 ea 05/03/25 05/06/25 patch fentanyl 75 mcg/hr transdermal 1 patch transdermal Q72H #5 ea 05/03/25 05/06/25 patch hydromorphone 4 mg tablet 4 mg PO Q4H PRN pain #30 tabs 05/03/25 05/06/25 Previous Rx's ?Medication ?Instructions ?Recorded clopidogrel 75 mg tablet (Plavix) 75 mg PO DAILY #90 tabs 07/13/21 amlodipine 10 mg tablet 10 mg PO DAILY #90 tabs 09/09/21 lisinopril 40 mg tablet 40 mg PO DAILY #90 tab-caps 09/09/21 ibuprofen 600 mg tablet 600 mg PO Q8H PRN pain #10 tabs 10/12/21 sennosides 8.6 mg capsule (senna) 8.6 - 17.2 mg (1 - 2 x 8.6 mg) PO 02/25/25 QHS #60 caps polyethylene glycol 3350 17 17 g PO DAILY #119 grams 03/02/25 gram/dose oral powder (Miralax) furosemide 20 mg tablet 20 mg PO DAILY PRN edema #30 tabs 04/08/25 omeprazole 20 mg capsule,delayed 20 mg PO DAILY #30 caps 04/29/25 release hydromorphone 2 mg tablet 2 - 4 mg (1 - 2 x 2 mg) PO Q6H #60 04/30/25 tabs polyethylene glycol 3350 17 17 g PO BID #119 grams 05/01/25 gram/dose oral powder (Miralax) sennosides 8.6 mg capsule (senna) 8.6 mg PO DAILY #30 caps 05/01/25 fentanyl 100 mcg/hr transdermal 1 patch transdermal Q72H #5 ea 05/03/25 patch fentanyl 75 mcg/hr transdermal 1 patch transdermal Q72H #5 ea 05/03/25 patch hydromorphone 4 mg tablet 4 mg PO Q4H PRN pain #30 tabs 05/03/25 Allergies Allergy/AdvReac Type Severity Reaction Status Date / Time Penicillins Allergy Unknown Unknown Verified 05/06/25 01:40 venlafaxine HCl (From Allergy Unknown Unknown Verified 05/06/25 01:40 Effexor) latex Allergy Itching Verified 05/06/25 01:40 General Stated Complaint: Nk/Back Pain PAU: 3 Exam Narrative Exam Narrative: 1.Const: Well-nourished, Well-developed, appearing stated age 2.Eyes: PERRL, no conjunctival injection, and symmetrical lids. 3.ENT: Atraumatic external nose and ears. Moist MM. Neck: Symmetric, trachea midline, No thyromegaly. 4.CVS: +S1/S2, Peripheral pulses 2+ and equal in all extremities. Brisk capillary refill in all extremities. 5.RESP: Unlabored respiratory effort. Clear to auscultation bilaterally. No wheezes rales or rhonchi 6.GI: Soft, mild generalized tenderness throughout. No guarding or rebound. 7.MSK: Normocephalic/Atraumatic, Extremities w/o deformity or ttp No cyanosis or clubbing, Normal movement of all extremities. +2 pitting edema bilaterally 8.Skin: Warm, Dry. No rashes or lesions. 9.Neuro: car coupler II-XII grossly intact. Sensation grossly intact, no focal neurologic deficits. 10.Psych: (AAO) x3. Appropriate mood and affect Course Vital Signs Vital signs: Vital Signs Pulse 105 H 05/06/25 01:32 Respiratory Rate 19 05/06/25 01:32 Blood Pressure 158/92 H 05/06/25 01:32 Pulse Oximetry 94 05/06/25 01:32 Pulse 105 H 05/06/25 01:32 Respiratory Rate 19 05/06/25 01:32 Blood Pressure 158/92 H 05/06/25 01:32 Blood Pressure Position Sitting 05/06/25 01:32 Pulse Oximetry 94 05/06/25 01:32 Oxygen Delivery Method Room Air 05/06/25 01:32 Oxygen Flow Rate 0 05/06/25 01:32 Pain Level 10 05/06/25 01:45 Medical Decision Making This is a 65-year-old male patient with a past medical history significant for metastatic prostate cancer, type 2 diabetes, CVA, who is currently a palliative care patient on Dilaudid and fentanyl, who presents today for evaluation of generalized pain. Patient states he regularly has significant abdominal pain, he was here about a week ago, had CT imaging which revealed severe constipation and metastatic lesions, but no other acute process. Pain in the abdomen has recurred since then, he has also developed pain in his left shoulder/chest. He denies vomiting. He denies diarrhea. He did give himself an enema today which elicited a bowel movement, but no resolution of the pain. He denies syncope. He denies any other complaints at this time. He has been taking his fentanyl and Dilaudid without improvement of his symptoms. He did contact his palliative care team tonight and they recommended he come to the ER for further assessment. Exam demonstrates mild generalized abdominal tenderness, +2 pitting edema of the lower extremities. Differential includes cardiac etiology/ACS, less likely PE, constipation, diverticulitis, less likely obstruction. Mild congestive heart failure is of concern with his pitting edema. Will give 20 of IV Lasix, treat the patient's pain with 2 mg of Dilaudid, get CT imaging to evaluate for concerning intra-abdominal pathology, monitor closely and reassess. 5:21 AM Laboratory workup has returned relatively benign, with a WBC count of 3.79 remaining relatively stable, hemoglobin is 10.5, no bandemia. Patient's electrolytes are relatively stable, sodium of 133, potassium of 3.2, renal function good. Serial troponins normal, lipase normal. Patient was given 40 mEq of oral potassium for the slightly low potassium at 3.2. Patient has urinated with a 20 of Lasix given, pitting edema has improved. D-dimer was elevated, CTA was ordered no evidence of pulmonary embolism was noted on CTA per radiology. There is evidence of mild pneumonia, and the patient does admit to a cough for the last week or so. He has no fever here though, no hypoxemia to necessitate medical admission. However he continues to have persistent pain in his shoulder and abdomen. CT of the abdomen demonstrates no significant acute process. I suspect the causes of his pain are related to the multiple bony metastases that he has. Patient has required multiple dosings of 2 mg IV Dilaudid pushes, which is in the context of him having his fentanyl patches on. I worry that he would not be a good candidate for outpatient management if his palliative care team would not be able to quickly reconnect with the patient for changes in his medication regimen. I did reach out to the on-call palliative care team and spoke with Gregoria the on-call nurse. She was uncertain as to whet her or not the patient would be able to get immediate follow-up today with the palliative care team. She recommended recontacting them at 8 AM when the rest of the team came on to see if they would prefer to admit the patient for pain control, or follow-up outpatient. With this being understood, we will start the patient on Levaquin for his mild pneumonia, will give a 750 mg dose orally here. I did offer the patient the option of going home and seeing if palliative care would follow-up or be able to follow-up today, versus staying here. Patient is extremely concerned for his pain levels, and does not feel comfortable going home with a chance that it might not be well-managed. We will keep the patient here until 8 AM at which point will reconnect with the palliative care team to again see if they will be able to quickly titrate his narcotic regimens, or if they would prefer admission for this titration. Patient will be signed out to my colleague for follow-up with the palliative care team. Quality:SDOH Health Related Social Needs: Health related social needs feeling lonely/isolated (Z 60.8) PFSH All Active Problems (Updated 05/06/25 @ 05:26 by Dani Casillas DO) Hypokalemia (Acute) Pneumonia (Acute) Cancer related pain (Acute) Constipation due to opioid therapy (Acute) Edema of lower extremity (Acute) Cancer related pain (Acute) Prostate cancer metastatic to bone (Acute) Gastritis (Acute) Palliative care patient (Acute) Right leg weakness (Acute) Long toenail (Acute) Type 2 diabetes mellitus (Acute) Medication intolerance (Chronic) Physical and philosophical intolerance of medications .. Prefers no statin, despite Hx CVA. At risk of fracture due to osteoporosis (Acute) Due to prostate cancer Tx ... Listed on screening request from [facility] per pt. Vitamin D deficiency (Acute) Hypertension (Chronic) Dyslipidemia (Chronic) Prostate cancer (Chronic) Possible (+) findings, Dec 2021. Cancer free per pt report, 11/2020. Jan 2021 check in @ [facility]. 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 1 3-4-5 weeks Chondromalacia patellae of right knee (Acute) Right knee pain (Acute) Pain w/ ambulation, new fluid collection. x 1 month, with exacerbation during walk yesterday .. Encounter for rehabilitation (Acute) a. From an infarction. Elevated prostate specific antigen (PSA) (Acute 10/30/16) Right groin pain (Acute) Nocturia (Acute) Insomnia disorder related to known organic factor (Acute) Depression (Chronic) Anxiety (Chronic) Medical History Constipation Prediabetes Hx of colonic polyps History of prediabetes Hemiplegia affecting dominant side, post-stroke Ischemic stroke Urinary outflow obstruction H/O prostate cancer Anxiety with depression Rib pain on right side Weakness of right arm Tubular adenoma (~01/2021) Diverticula of colon Chemotherapy-induced fatigue leading to deconditioning Spasticity (02/22/15) Presumed post CVA (2013) Surgical History History of colonoscopy with polypectomy (~02/10/21) Colonoscopy - IV Sedation (10/07/15) DR.TERRY BURGOS Family History Brother Anxiety Father Diabetes Other Hypertension Social History Smoking/Tobacco Use Status: Never Smoking risk assessment performed?: Yes Alcohol Intake: current Alcohol Intake frequency: holidays/special occasions only Drug use: Never Substance use type: does not use Adopted: No Caregiver/Support person: No Foster care: No Household members: family Housing: house Do you need help understanding health information?: Rarely current occupation: Unemployed Sexually active: No Do you think of yourself as: lesbian/kc/homosexual Current gender identity: male Do you feel safe at home: Yes Do you feel safe in your relationship?: Yes
[2025-05-06] MEDS: Furosemide 20 MG/2 ML VIAL IVP (02:35)
[2025-05-06] MEDS: HYDROmorphone 2 MG/ML SYR IVP ×2 (02:35→04:48)
[2025-05-06 02:49] LABS: Abs Immature Grans 0.04 10^3/uL (0.0-0.06); Absolute Basophil Count 0.01 10^3/uL (0.0-0.2); Absolute Eosinophil Count 0.01 10^3/uL (0.0-0.7); Absolute Lymphocyte Count 0.33 10^3/uL (1.2-3.4); Absolute Monocyte Count 0.51 10^3/uL (0.1-0.8); Basophils % 0.3 %; Eosinophils % 0.3 %; HCT 31.3 % (40.0-50.0); HGB 10.5 g/dL (13.5-17.5); Immature Grans % 1.1 %; Lymphocytes % 8.7 %; MCH 27.1 pg (27.0-33.0); MCHC 33.5 % (32.0-36.0); MCV 81 fL (80-95); Monocytes % 13.5 %; Neutrophils % 76.1 %; Platelet Count 274 10^3/uL (130-400); RBC 3.87 10^6/uL (4.36-5.78); RDW 12.5 % (11.8-14.1); RDW-SD 35.9 fL; WBC 3.79 10^3/uL (4.4-10.8)
[2025-05-06 02:53] LABS: Absolute Neutrophil Count 2.88 10^3/uL (1.2-6.7)
[2025-05-06 02:58] LABS: ALT 9 U/L (16-63); AST 16 U/L (15-37); Albumin 2.6 g/dL (3.4-5.0); Alkaline Phosphatase 186 U/L (46-116); Anion Gap 9.5 mmol/L (3-11); BUN 12 mg/dL (7-18); Bilirubin, Total 0.5 mg/dL (0.2-1.0); CO2 28.5 mmol/L (21.0-32.0); CREATININE 0.7 mg/dL (0.70-1.30); Calcium 9.5 mg/dL (8.5-10.1); Chloride 95 mmol/L (98-107); Estimated GFR 102.89 (mL/min/1.73m2); Glucose 157 mg/dL (74-106); Potassium 3.2 mmol/L (3.5-5.1); Sodium 133 mmol/L (136-145); Total Protein 6.7 g/dL (6.4-8.2)
[2025-05-06 03:05] LABS: Lipase 13 U/L (<78); Troponin I 65 ng/L (<or=76)
[2025-05-06 03:13] LABS: D-Dimer 1461 ng/mlFEU (<500)
[2025-05-06 04:02] LABS: Troponin I 63 ng/L (<or=76)
[2025-05-06] MEDS: Omnipaque 350 MG/ML 100 ML BTL 75 ML IJ (04:06)
[2025-05-06] MEDS: Normal Saline - Diluent 50 ML VIAL IJ (04:07)
--- NOTE | 2025-05-06 04:07 | DI.CT_ITS ---
Exam(s) CT CHEST PE ABD PELVIS W EXAM: CT CHEST PE ABD PELVIS W CLINICAL HISTORY: cancer w/mets. left sided abdominal and left shoulder/chestpain,eval for PE. TECHNIQUE: Imaging Protocol: Axial CT angiography was performed with multi-slice acquisition and m ulti-planar and/or 3D reconstructions. CONTRAST MATERIAL: Intravenous: Omnipaque 350 Contrast volume:100 ml Oral: None COMPARISON: CT CT ABDOMEN PELVIS W from 05/01/2025 FINDINGS: CHEST: PULMONARY ARTERIES: There are no intra-arterial filling defects to suggest the presence of acute pulm onary emboli. However.... LUNGS: There are new small bilateral equal size pleural effusions and the increased markings and nodu lar infiltrates in both lungs is again evident. There is also confluent infiltrate in the lingula se gment of the left lung which has increased. \ MEDIASTINUM: There is significant subcarinal adenopathy in the mediastinum as well as left paratrache al adenopathy. Slightly enlarged lymph nodes are also noted in both hilar regions. The visualized t hyroid appears unremarkable. CARDIAC: Mild cardiomegaly. There is also a pericardial effusion again noted with maximum thickness 8-9 mm.Diameter of the ascending thoracic aorta is enlarged measuring of 3.9-4.0 cm. There is no esperanza dence of dissection. OSSEOUS: Multilevel sclerotic metastases are again noted vertebral bodies. There is also some height loss at superior endplate of T7 and L2 again noted.. ABDOMEN: There is no ascites. LIVER: Steatosis. However, there are no focal hepatic lesions nor dilatation of intrahepatic ducts. GALLBLADDER/BILIARY: No obvious gallbladder pathology. CBD is not dilated. PANCREAS: No evidence of pancreatic mass nor dilatation of the pancreatic duct. SPLEEN: Spleen size upper normal. No splenic lesions. Splenic and portal veins are patent. ADRENALS: Tiny nodules are noted in the medial limb of the adrenal glands. Similar to previous KIDNEYS:Small benign cyst in the lateral cortex of the left kidney measures 6 mm. Does not require f urther workup. No calculi nor hydronephrosis. No solid renal masses. ABDOMINAL AORTA: Calcified. Upper normal diameter. Iliac arteries also calcified and upper normal d iameters. LYMPH NODES: There is no retroperitoneal or para-aortic adenopathy. ABDOMINAL WALL/GI: No evidence of significant anterior abdominal wall hernia. No bowel obstruction. PELVIS: LYMPH NODES: There is no intrapelvic nor inguinal adenopathy. GI: No evidence of appendicitis.No evidence of sigmoid diverticulitis. URINARY BLADDER: No calculi nor masses evident REPRODUCTIVE: Radiation seeds in the prostate are again noted. Some calcification is noted in the ri ght seminal vesicle. No mass therein. OSSEOUS: Sclerotic metastatic bone disease is noted in the bones of the pelvis including both iliac b ones vertebral bodies as well as the right-side of the sacrum. Mild L2 compression fracture again no tri, unchanged. Slight indentation of the involves superior endplate of T12 is unchanged. IMPRESSION: 1. No evidence of acute pulmonary emboli nor pulmonary infarction. However, there is diffuse pattern throughout both lung beck suspicious for probable lymphangitic metastatic disease throughout the l patricia beck, infection, or a combination of both. There also new bilateral small pleural effusions wh ich were not evident on CT scan of 05/01/2025. 2. There is intrathoracic adenopathy in the mediastinum specifically subcarinal and left paratracheal . There also small but enlarged lymph nodes in both hilar regions. 3. There is a pericardial effusion again noted. Thickness is 8-9 mm. There is also enlargement of t he diameter of the ascending thoracic aorta measuring 3.9 x 4.0 cm. There is, however, no evidence o f aortic dissection. 4. Radiation seeds in the prostate again noted. Prostate size is not enlarged. 5. Diffuse osseous metastatic sclerotic disease again noted. Other findings as above. Findings discussed by myself with physician and provider hospitalists 05/06/2025 at 3:05 p.m. RADIATION DOSE DELIVERED: 350.34mGy.cm Total DLP DATA REPOSITORY: All CT scans at this facility are submitted to the National Radiology Data Registry (NRDR) Dose Index Registry (DIR) with the [employer] (ACR). RADIATION OPTIMIZATION: All CT scans at this facility use at least one of these dose optimization te chniques: automated exposure control; mA and/or kV adjustment per patient size (includes targeted exa ms where dose is matched to clinical indication); or iterative reconstruction.
--- NOTE | 2025-05-06 04:32 | DI.VRAD_ITS ---
PROCEDURE INFORMATION: Exam: CTA Chest With Contrast Exam date and time: 05/06/2025 3:40 AM Age: 65 years old Clinical indication: Abdominal pain; Localized; Left-sided; Cancer w/mets. Left sided abdominal and left shoulder/chest pain, eval for pe. Primary cancer is prostate TECHNIQUE: Imaging protocol: Computed tomographic angiography of the chest with contrast. Exam focused on the arteries. 3D rendering (Not supervised by radiologist): MIP and/or 3D reconstructed images were created by the technologist. Radiation optimization: All CT scans at this facility use at least one of these dose optimization techniques: automated exposure control; mA and/or kV adjustment per patient size (includes targeted exams where dose is matched to clinical indication); or iterative reconstruction. Contrast material: [id number]; Contrast volume: 75 ml; Contrast route: INTRAVENOUS (IV); COMPARISON: CT CHEST/ABD/PEL WO 04/14/2022 6:08 PM FINDINGS: Limitations: Mild motion artifact. Pulmonary arteries: No definite pulmonary embolus identified, within the limitations noted above. Aorta: Atherosclerotic changes in the aorta and its branches. Ascending thoracic aorta ectatic to 3.9 cm. Lungs: Multifocal ground-glass opacities with interstitial thickening and nodular infiltrates in both lungs. Pleural spaces: Small bilateral pleural effusions. Heart: Small pericardial effusion. Mild cardiomegaly. Coronary arteries: Coronary artery calcifications. Lymph nodes: Mediastinal and bilateral hilar lymphadenopathy. Bones/joints: Widespread osseous metastases. Compression deformity at T7 appears chronic Soft tissues: No acute pertinent abnormality seen. IMPRESSION: 1. No definite pulmonary embolus identified, within the limitations noted above. 2. Multifocal parenchymal opacities in both lungs, most consistent with pneumonia. Follow-up to resolution advised. 3. Pleural and pericardial effusions. 4. Osseous metastases. 5. Additional findings as above. 6. Additional studies dictated separately. PROCEDURE INFORMATION: Exam: CT Abdomen And Pelvis With Contrast Exam date and time: 05/06/2025 3:40 AM Age: 65 years old Clinical indication: Abdominal pain; Localized; Left-sided; Cancer w/mets. Left sided abdominal and left shoulder/chest pain, eval for pe. Primary cancer is prostate TECHNIQUE: Imaging protocol: Computed tomography of the abdomen and pelvis with contrast. Radiation optimization: All CT scans at this facility use at least one of these dose optimization techniques: automated exposure control; mA and/or kV adjustment per patient size (includes targeted exams where dose is matched to clinical indication); or iterative reconstruction. Contrast material: [id number]; Contrast volume: 75 ml; Contrast route: INTRAVENOUS (IV); COMPARISON: CT ABDOMEN PELVIS W 05/01/2025 12:05 PM FINDINGS: Lungs: CT scan of chest dictated separately. Liver: No focal hepatic lesion identified. Gallbladder and biliary ducts: No radiodense gallbladder calculi seen. Pancreas: No CT evidence for acute pancreatitis. Spleen: No splenomegaly. Adrenal glands: Bilateral adrenal thickening and nodularity. Kidneys and ureters: No hydronephrosis or evidence for pyelonephritis. Stomach and bowel: No intestinal obstruction is evident. Areas of apparent mural thickening in the colon commensurate with underdistention. Appendix: No evidence of appendicitis. Intraperitoneal space: No free air. Vasculature: Atherosclerotic changes in the aorta and its branches. Mild narrowing at the origin of the celiac axis with distal reconstitution. Mild atherosclerotic irregularity of the superior mesenteric artery. Lymph nodes: No acute findings. Urinary bladder: No acute findings. Reproductive: Radiation seeds in the prostate. Bones/joints: Spinal curvature and degenerative change. Widespread osseous metastases. Soft tissues: No pertinent acute abnormality seen. IMPRESSION: 1. No acute findings to explain reported symptoms. 2. Findings as above. 3. Additional studies dictated separately. Dictated and Authenticated by: Vera Tello MD. Orderin Vinny Louise MD
[2025-05-06] MEDS: Potassium Chloride 20 MEQ TABCR 40 MEQ PO (04:45)
[2025-05-06] MEDS: levoFLOXacin 500 MG, levoFLOXacin 250 MG 750 MG PO (05:45)
[2025-05-06 05:50] VITALS: BP 139/79; PULSE 92; RESP 16; O2SAT 93
[2025-05-06] MEDS: Ondansetron 4 MG/2 ML VIAL IVP (07:09)
--- NOTE | 2025-05-06 10:06 | HPE_ITS ---
Date of service: 05/06/25 Time of Service: 10:07 Assessment and Plan Assessment and plan (1) Pneumonia: Status: Acute Assessment and plan: On levaquin As per CT Lungs: Multifocal ground-glass opacities with interstitial thickening and nodular infiltrates in both lungs. Pleural spaces: Small bilateral pleural effusions. Pleural and pericardial effusions. (2) Cancer related pain: Status: Acute Assessment and plan: Continue home dose fentanyl and PRn oral hydromorphone PRN IV hydromorphone (3) Constipation due to opioid therapy: Status: Acute Assessment and plan: Continue home regimen of bowel meds (4) Prostate cancer metastatic to bone: Status: Acute Assessment and plan: As per imaging Widespread osseous metastases. Compression deformity at T7 appears chronic Also Possible lymphatic spread of tumor/metastasis from imaging of 05/01/25 (5) Palliative care patient: Status: Acute Assessment and plan: Palliative consult - goals of care (6) Type 2 diabetes mellitus: Status: Acute Assessment and plan: A1C in 2022 confirmed Dx A1C pending (7) Hypertension: Status: Chronic Assessment and plan: Not currently on BP meds - will confirm (8) Dyslipidemia: Status: Chronic Assessment and plan: Not on statin currently (9) Hypokalemia: Status: Acute Assessment and plan: supplementation given BMP in AM (10) On deep vein thrombosis (DVT) prophylaxis: Status: Acute Assessment and plan: On LMWH Discussed with Dr. Jack History of Present Illness History of Present Illness Chief Complaint: Abdominal pain, left arm /shoulder pain Narrative: This 65-year-old male patient with a past medical history significant for metastatic prostate cancer, bones metastasis, type 2 diabetes, CVA, currently seen by palliative care patient on Dilaudid and fentanyl, who presented to the ED for evaluation of generalized pain. Patient stated having had regularly has significant abdominal pain and was seen a week ago in the ED , had CT imaging which revealed severe constipation and metastatic lesions, but no other acute process. Pain in the abdomen has recurred since then, he has also developed pain in his left shoulder/chest. He denied vomiting. He denied diarrhea. He had a bowel movement todays/p enema w/o resolution of pain. He denied syncope and did not report other symptoms. Fentanyl patch dosing has been increased recently. Also on Dilaudid PRN without improvement of his symptoms. In the ED the patient received IV hydromorphone. Chest abdomen pelvis CT was completed with significant findings for diffuse pattern of probable lymphangitic metastasis disease versus infection or combination of both, ,small pericardial effusion intrathoracic adenopathy in the mediastinal , enlarged lymph nodes in both hilar regions and and large ascending thoracic aorta measuring 3.9 x 4 cm without evidence of dissection. The patient was admitted to the medical surgical floor for pneumonia and intractable pain.. DNR/DNI status confirmed. When seen the patient reported resolution of pain. RN reported that the patient had one 100 mcg fentanyl patche on in addition to 175 mcg patches. Review of Systems All systems reviewed & are unremarkable except as noted in HPI and below PFSH All Active Problems (Updated 05/06/25 @ 11:27 by MACK VALERO) On deep vein thrombosis (DVT) prophylaxis (Acute) Hypokalemia (Acute) Pneumonia (Acute) Cancer related pain (Acute) Constipation due to opioid therapy (Acute) Edema of lower extremity (Acute) Cancer related pain (Acute) Prostate cancer metastatic to bone (Acute) Gastritis (Acute) Palliative care patient (Acute) Right leg weakness (Acute) Long toenail (Acute) Type 2 diabetes mellitus (Acute) Medication intolerance (Chronic) Physical and philosophical intolerance of medications .. Prefers no statin, despite Hx CVA. At risk of fracture due to osteoporosis (Acute) Due to prostate cancer Tx ... Listed on screening request from [facility] per pt. Vitamin D deficiency (Acute) Hypertension (Chronic) Dyslipidemia (Chronic) Prostate cancer (Chronic) Possible (+) findings, Dec 2021. Cancer free per pt report, 11/2020. Jan 2021 check in @ [facility]. 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 1 3-4-5 weeks Chondromalacia patellae of right knee (Acute) Right knee pain (Acute) Pain w/ ambulation, new fluid collection. x 1 month, with exacerbation during walk yesterday .. Encounter for rehabilitation (Acute) a. From an infarction. Elevated prostate specific antigen (PSA) (Acute 10/30/16) Right groin pain (Acute) Nocturia (Acute) Insomnia disorder related to known organic factor (Acute) Depression (Chronic) Anxiety (Chronic) Medical History Constipation Prediabetes Hx of colonic polyps History of prediabetes Hemiplegia affecting dominant side, post-stroke Ischemic stroke Urinary outflow obstruction H/O prostate cancer Anxiety with depression Rib pain on right side Weakness of right arm Tubular adenoma (~01/2021) Diverticula of colon Chemotherapy-induced fatigue leading to deconditioning Spasticity (02/22/15) Presumed post CVA (2013) Surgical History History of colonoscopy with polypectomy (~02/10/21) Colonoscopy - IV Sedation (10/07/15) DR.TERRY BURGOS Family History Brother Anxiety Father Diabetes Other Hypertension Social History Smoking/Tobacco Use Status: Never Smoking risk assessment performed?: Yes Alcohol Intake: current Alcohol Intake frequency: holidays/special occasions only Drug use: Never Substance use type: does not use Adopted: No Caregiver/Support person: No Foster care: No Household members: family Housing: house Do you need help understanding health information?: Rarely current occupation: Unemployed Sexually active: No Do you think of yourself as: lesbian/kc/homosexual Current gender identity: male Do you feel safe at home: Yes Do you feel safe in your relationship?: Yes Meds Allergies and Home Medications Allergies Allergy/AdvReac Type Severity Reaction Status Date / Time Penicillins Allergy Unknown Unknown Verified 05/06/25 01:40 venlafaxine HCl (From Allergy Unknown Unknown Verified 05/06/25 01:40 Effexor) latex Allergy Itching Verified 05/06/25 01:40 Home Medications ?Medication ?Instructions ?Recorded ?Confirmed ?Type cholecalciferol (vitamin D3) 25 25 mcg PO DAILY 06/11/20 05/06/25 History mcg (1,000 unit) chewable tablet (Vitamin D3) ascorbate calcium (vitamin C) 500 1 gm PO DAILY 06/24/20 05/06/25 History mg tablet clopidogrel 75 mg tablet (Plavix) 75 mg PO DAILY #90 tabs 07/13/21 05/06/25 Rx amlodipine 10 mg tablet 10 mg PO DAILY #90 tabs 09/09/21 05/06/25 Rx lisinopril 40 mg tablet 40 mg PO DAILY #90 tab-caps 09/09/21 05/06/25 Rx ibuprofen 600 mg tablet 600 mg PO Q8H PRN pain #10 tabs 10/12/21 05/06/25 Rx baclofen 10 mg tablet 10 mg PO BID PRN 11/22/22 05/06/25 History leuprolide (4 month) 30 mg (4 30 mg IM [id number] 10/07/23 05/06/25 History month) intramuscular syringe kit (Lupron Depot) sennosides 8.6 mg capsule (senna) 8.6 - 17.2 mg (1 - 2 x 8.6 mg) PO 02/25/25 05/06/25 Rx QHS #60 caps polyethylene glycol 3350 17 17 g PO DAILY #119 grams 03/02/25 05/06/25 Rx gram/dose oral powder (Miralax) food supplemt, lactose-reduced ml PO 03/30/25 04/15/25 History (Ensure oral liquid) ondansetron 8 mg disintegrating 8 mg PO Q8H PRN 03/31/25 05/06/25 History tablet furosemide 20 mg tablet 20 mg PO DAILY PRN edema #30 tabs 04/08/25 05/06/25 Rx sertraline 25 mg tablet (Zoloft) 50 mg PO DAILY 04/08/25 05/06/25 History sucralfate 1 gram tablet (Carafate) 1 g PO QID 04/08/25 05/06/25 History omeprazole 20 mg capsule,delayed 20 mg PO DAILY #30 caps 04/29/25 05/06/25 Rx release hydromorphone 2 mg tablet 2 - 4 mg (1 - 2 x 2 mg) PO Q6H #60 04/30/25 05/06/25 Rx tabs polyethylene glycol 3350 17 17 g PO BID #119 grams 05/01/25 05/06/25 Rx gram/dose oral powder (Miralax) sennosides 8.6 mg capsule (senna) 8.6 mg PO DAILY #30 caps 05/01/25 05/06/25 Rx fentanyl 100 mcg/hr transdermal 1 patch transdermal Q72H #5 ea 05/03/25 05/06/25 Rx patch fentanyl 75 mcg/hr transdermal 1 patch transdermal Q72H #5 ea 05/03/25 05/06/25 Rx patch hydromorphone 4 mg tablet 4 mg PO Q4H PRN pain #30 tabs 05/03/25 05/06/25 Rx Exam Narrative Exam Narrative: Constitutional The patient is in bed comfortable without acute distres Neuro:alert and oriented to self, person, place time and situation. No neurological focal deficit Resp: Unlabored breathing, clear lung bilaterally diminished bases L>R Cardio: regular rhythm, S1, S2, no murmur,trace edema to lower extremities bilateral radial and dorsalis pedis pulses are positive, palpable GI: Abdomen is not distended, soft and non tender, bowel sounds are present : Negative Costovertebral angle tenderness, no bladder distension Back/spine/Pelvis: normal alignment Integumentary: No skin lesions or rash Extremities: strength 4/5 to right arm and leg d/t past CVA Psych: RASS 0, congruent mood and normal affect. Results Labs 05/06/25 02:33 05/06/25 02:33 Labs: Laboratory Results - last 24 hr 05/06/25 05/06/25 05/06/25 02:33 03:40 04:58 WBC 3.79 L RBC 3.87 L Hgb 10.5 L Hct 31.3 L MCV 81 MCH 27.1 MCHC 33.5 RDW 12.5 Plt Count 274 MPV 9.0 Immature Gran % 1.1 Neutrophils % 76.1 Lymphocytes % 8.7 Monocytes % 13.5 Eosinophils % 0.3 Basophils % 0.3 Nucleated RBC % 0.0 Absolute Neutrophils 2.88 Absolute Lymphocytes 0.33 L Absolute Monocytes 0.51 Absolute Eosinophils 0.01 Absolute Basophils 0.01 D-Dimer 1461 H Sodium 133 L Potassium 3.2 L Chloride 95 L Carbon Dioxide 28.5 Anion Gap 9.5 BUN 12 Creatinine 0.7 Est GFR (CKD-EPI 2020) 102.89 Glucose 157 H Calcium 9.5 Total Bilirubin 0.5 AST 16 ALT 9 L Alkaline Phosphatase 186 H Troponin I 65 63 Cancelled Total Protein 6.7 Albumin 2.6 L Lipase 13 Last Vital Signs Pulse 92 H 05/06/25 05:50 Resp 16 05/06/25 05:50 BP 139/79 05/06/25 05:50 Pulse Ox 93 05/06/25 05:50 Time Spent Time spent with Patient: >75 minutes Time was spent: preparing to see the patient(eg.review tests), obtaining and/or reviewing separately otained hiistory, ordering medications,tests, procedures, referring, communicating with other health personal care home administrator, indepentently interpreting results, counseling the patient and care coordination
--- NOTE | 2025-05-06 10:06 | W.EDPROG ---
Date of service: 05/06/25 Time of Service: 10:06 Medical Decision Making Care signed out by Dr. Casillas, please see his documentation regarding prior ED course. Plan at signout was to await palliative care consultation. Patient does have pneumonia and antibiotic treatment has been initiated. Palliative care [employer] Poli recommending admission for pain control. I spoke with Dr. Avila, on-call hospitalist, he will admit the patient. Quality:SDOH Health Related Social Needs: Health related social needs feeling lonely/isolated (Z60.8) Discharge Plan Disposition Patient Disposition: Admit to [facility] Condition: Serious Discharge Details Chief Complaint: Nk/Back Pain Clinical Impression: Cancer related pain, Pneumonia, Hypokalemia Primary Care Provider: FELIX CARMEN ED Provider: Sergio Stiles Home Meds and New Rx's Prescriptions: No Action amlodipine 10 mg tablet 10 mg PO DAILY Qty: 90 3RF lisinopril 40 mg tablet 40 mg PO DAILY Qty: 90 3RF senna 8.6 mg capsule 8.6 - 17.2 mg PO QHS Qty: 60 0RF ibuprofen 600 mg tablet 600 mg PO Q8H PRN (Reason: pain) Qty: 10 0RF Rx Instructions: Trial twice a day x 3 days. TAKE WITH FOOD (cheese/peanut butter) furosemide 20 mg tablet 20 mg PO DAILY PRN (Reason: edema) Qty: 30 0RF Rx Instructions: For edema ascorbate calcium (vitamin C) 500 mg tablet 1 gm PO DAILY clopidogrel [Plavix] 75 mg tablet 75 mg PO DAILY Qty: 90 3RF baclofen 10 mg tablet 10 mg PO BID PRN Lupron Depot (4 month) 30 mg syringe kit 30 mg IM [id number] Ensure Liquid PO ondansetron 8 mg tablet,disintegrating 8 mg PO Q8H PRN sucralfate [Carafate] 1 gram tablet 1 g PO QID omeprazole 20 mg capsule,delayed release(DR/EC) 20 mg PO DAILY Qty: 30 4RF hydromorphone 2 mg tablet 2 - 4 mg PO Q6H MDD 8 tabs Qty: 60 0RF Rx Instructions: for cancer related pain palliative care patient hydromorphone 4 mg tablet 4 mg PO Q4H MDD 6 tabs PRN (Reason: pain) Qty: 30 0RF fentanyl 100 mcg/hr patch 72 hour 1 patch transdermal Q72H MDD 175mcg/hr Qty: 5 0RF Rx Instructions: for cancer related pain, to be used w/75mcg patch for total dose of 175mcg/hr palliative care patient fentanyl 75 mcg/hr patch 72 hour 1 patch transdermal Q72H MDD 175mcg/hr Qty: 5 0RF Rx Instructions: to be used w/100mcg patches for total dose of 175mcg/hr cholecalciferol (vitamin D3) [Vitamin D3] 25 mcg (1,000 unit) Tablet,Chewable 25 mcg PO DAILY sertraline [Zoloft] 25 mg tablet 50 mg PO DAILY Patient Comments: Take 1 tablet by mouth once a day polyethylene glycol 3350 [Miralax] 17 gram/dose powder 17 g PO DAILY Qty: 119 0RF polyethylene glycol 3350 [Miralax] 17 gram/dose powder 17 g PO BID Qty: 119 0RF senna 8.6 mg capsule 8.6 mg PO DAILY Qty: 30 0RF
[2025-05-06 11:55] VITALS: BP 125/82; PULSE 110; RESP 16; TEMP 37.1; O2SAT 93
[2025-05-06] MEDS: HYDROmorphone 2 MG TAB PO ×3 (12:18→23:41)
[2025-05-06] MEDS: Normal Saline Flush 10 ML SYR IVP ×2 (12:19→23:42)
[2025-05-06] MEDS: Enoxaparin 40 MG/0.4 ML SYR SC (12:59)
--- NOTE | 2025-05-06 15:14 | W.PC.ACHO ---
Registration Status: Primary Language: Preferred Language: ED Information & Data Chief Complaint Nk/Back Pain 05/06/25 01:57 Triage Note EDITH shoulder and low back and 05/06/25 01:32 abd pain r/t cancer dx. Also reports lower extremity edema also worse than normal. Palliative care involved in patient care. Current at home analgesic regimen is not working appropriately. Medical / Surgical History (Last Reviewed 04/15/25 @ 15:16 by Cherry Ashton NP) Constipation Prediabetes Hx of colonic polyps History of prediabetes Hemiplegia affecting dominant side, post-stroke Ischemic stroke Urinary outflow obstruction H/O prostate cancer Anxiety with depression Rib pain on right side Weakness of right arm Tubular adenoma (~01/2021) Diverticula of colon Chemotherapy-induced fatigue Spasticity (02/22/15) (Last Reviewed 04/15/25 @ 15:16 by Cherry Ashton NP) History of colonoscopy with polypectomy (~02/10/21) Colonoscopy - IV Sedation (10/07/15) Most Recent Vital Signs Temperature 37.1 C 05/06/25 11:55 Pulse 110 H 05/06/25 11:55 Pulse Rhythm Regular 05/06/25 11:55 Respiratory Rate 16 05/06/25 11:55 Respiratory Effort Normal, Non-Labored 05/06/25 11:55 Respiratory Depth Normal 05/06/25 11:55 Respiratory Pattern Normal 05/06/25 11:55 Blood Pressure 125/82 05/06/25 11:55 Blood Pressure Mean 99 05/06/25 05:50 Blood Pressure Position Supine 05/06/25 05:50 Pulse Oximetry 93 05/06/25 11:55 Oxygen Delivery Method Room Air 05/06/25 11:55 Oxygen Flow Rate 0 05/06/25 11:55 Pain Level 2 05/06/25 11:55 Allergies Penicillins Allergy (Unknown, Verified 05/06/25 01:40) Unknown venlafaxine HCl (From Effexor) Allergy (Unknown, Verified 05/06/25 01:40) Unknown latex Allergy (Verified 05/06/25 01:40) Itching Precautions Isolation Standard precaution 05/06/25 01:45 Active Medications Generic Name Dose Route Start Last Admin Trade Name Freq PRN Reason Stop Dose Admin Enoxaparin Sodium 40 mg 05/06/25 12:00 05/06/25 12:59 Enoxaparin 40 Mg/0.4 Ml Syr SC 40 mg Q24H PALMER Administration Hydromorphone HCl 2 - 4 mg 05/06/25 12:00 05/06/25 12:18 Hydromorphone 2 Mg Tab PO 2 mg Q6H PALMER Administration Sodium Chloride 0 ml 05/06/25 08:30 05/06/25 12:19 Normal Saline Flush 10 Ml Syr IVP 20 ml BID PALMER Administration IV IV Catheter Type [Right Wrist] Saline Lock IV Catheter Gauge [Right Wrist 20 ] Diet Orders Category Date Time Status Regular/Normal [DIET] Nutrition 05/06/25 Lunch Active Diagnostics 05/06/25 05/06/25 05/06/25 Range/Units 04:58 03:40 02:33 WBC 3.79 L (4.4-10.8) 10^3/uL RBC 3.87 L (4.36-5.78) 10^6/uL Hgb 10.5 L (13.5-17.5) g/dL Hct 31.3 L (40.0-50.0) % MCV 81 (80-95) fL MCH 27.1 (27.0-33.0) pg MCHC 33.5 (32.0-36.0) % RDW 12.5 (11.8-14.1) % Plt Count 274 (130-400) 10^3/uL MPV 9.0 (8.0-11.0) fL Immature Gran % 1.1 % Neutrophils % 76.1 % Lymphocytes % 8.7 % Monocytes % 13.5 % Eosinophils % 0.3 % Basophils % 0.3 % Nucleated RBC % 0.0 (0.0-0.3) % Absolute Neutrophils 2.88 (1.2-6.7) 10^3/uL Absolute Lymphocytes 0.33 L (1.2-3.4) 10^3/uL Absolute Monocytes 0.51 (0.1-0.8) 10^3/uL Absolute Eosinophils 0.01 (0.0-0.7) 10^3/uL Absolute Basophils 0.01 (0.0-0.2) 10^3/uL D-Dimer 1461 H (<500) ng/mlFEU Sodium 133 L (136-145) mmol/L Potassium 3.2 L (3.5-5.1) mmol/L Chloride 95 L (98-107) mmol/L Carbon Dioxide 28.5 (21.0-32.0) mmol/L Anion Gap 9.5 (3-11) mmol/L BUN 12 (7-18) mg/dL Creatinine 0.7 (0.70-1.30) mg/dL Est GFR (CKD-EPI 2020) 102.89 (mL/min/1.73m2) Glucose 157 H (74-106) mg/dL Calcium 9.5 (8.5-10.1) mg/dL Total Bilirubin 0.5 (0.2-1.0) mg/dL AST 16 (15-37) U/L ALT 9 L (16-63) U/L Alkaline Phosphatase 186 H (46-116) U/L Troponin I Cancelled 63 65 (<or=76) ng/L Total Protein 6.7 (6.4-8.2) g/dL Albumin 2.6 L (3.4-5.0) g/dL Lipase 13 (<78) U/L Intake and Output - 24 Hour Total 05/06/25 01:16 thru 05/06/25 13:00 Intake Total 150 Balance 150 Weight 54.2 kg Intake: Oral 150 Falls Risk Assessment History of Falls No History 05/06/25 01:45 Contributing Factors Impairments,Medications 05/06/25 11:55 Ambulatory Aids Independent 05/06/25 11:55 Tubes/Lines With any additional score 05/06/25 11:55 Gait Evaluation W/any additional score 05/06/25 01:45 Cognition No cognitive impairment 05/06/25 01:45 Fall Total Score 26 05/06/25 11:55 Level of Risk Moderate Risk 05/06/25 11:55 Problems (Last Reviewed 04/15/25 @ 15:16 by Cherry Ashton NP) On deep vein thrombosis (DVT) prophylaxis (Acute) Hypokalemia (Acute) Pneumonia (Acute) Cancer related pain (Acute) Constipation due to opioid therapy (Acute) Prostate cancer metastatic to bone (Acute) Palliative care patient (Acute) Type 2 diabetes mellitus (Acute) Hypertension (Chronic) Dyslipidemia (Chronic) v v v v v v v v v Sending and/or Receiving Nurses: Please use comment section below to note any information pertinent to the patient hand-off not included above. Information / Comments: Report received from: OREN Song/DAVID
[2025-05-06 23:25] VITALS: BP 115/76; PULSE 90; RESP 24; TEMP 37.3; O2SAT 90
[2025-05-07] MEDS: levoFLOXacin 750 MG/150 ML BAG 100 MG IVPB (05:41)
[2025-05-07] MEDS: HYDROmorphone 2 MG TAB PO ×3 (05:41→21:07)
[2025-05-07 07:39] VITALS: BP 120/78; PULSE 114; RESP 14; TEMP 35.8; O2SAT 91
[2025-05-07] MEDS: Normal Saline Flush 10 ML SYR IVP ×3 (07:50→21:08)
[2025-05-07] MEDS: Senna TAB 1 TAB PO ×3 (07:50→21:07)
[2025-05-07] MEDS: Cholecalciferol (Vitamin D3) 400 UNIT TAB 1000 UNIT PO (07:50)
[2025-05-07] MEDS: Ascorbic Acid 500 MG TAB 1000 MG PO (07:50)
[2025-05-07] MEDS: Clopidogrel 75 MG TAB PO (07:50)
[2025-05-07] MEDS: Omeprazole 20 MG CAPCR PO (07:50)
[2025-05-07] MEDS: Prochlorperazine 10 MG/2 ML VIAL 5 MG IVP (08:12)
--- NOTE | 2025-05-07 08:55 | PDOC.CMIN ---
Date of service: 05/07/25 Time of Service: 08:55 Care Management Initial Assmt Initial Assessment Reason for Hospitalization: pneumonia, intractable pain, abdominal pain Functional Status/Living Situation Town of Residence: [place] Resides with: Other (lives with his twin brother, Emil and has a good friend, Jill.) Significant Other/Family: Local Natural Supports: Friends, and family Instrumental Activities of Daily Living (ADLs): Independent Medications Medication Management: No Issues/Barriers identified Advance Directives Advance Directives: Do you have an Advance Directive: Y 09/09/18 09:13 AD On File at [facility]: Y 09/09/18 09:13 Date Asked 04/04/25 04/12/25 02:48 AD Date Reviewed 05/06/25 05/06/25 11:31 COLST On File at [facility] COLST Date Scanned Code Status Resuscitation Status Full Code Portal Pt does not currently have a portal and education provided: Yes Insurance Coverage/Financial Issues Insurance: BC/BS [facility] - [id number] Care Team Visit Care Team Role Provider Type FELIX CARMEN NP Primary Care Provider NON-[facility] STAFF PHYSICIAN Sergio Stiles MD Emergency Provider [facility] STAFF PHYSICIAN Manny Jack Admit Provider [facility] STAFF PHYSICIAN Attending Provider Discharge Potential Discharge Needs: PCP F/U Appt and Other (Oncology follow up ) Anticipated Barriers to Discharge: Medical Status Patient/Family Education Needs: Review discharge instructions, discuss Ask Me Three Transportation: Private vehicle Plan: Anticipate Hernandez will be discharged home, once medically clear. He will follow up with his PCP, oncology, and plan of care. He will transport via private vehicle by family. Social Determinants of Health Screening Social Determinants of health last assessed in clinic: 05/07/25 Will the Patient Participate in the Screening?: Yes Do you worry about having a steady place to live?: no Problems where you live: no known problems In the past 12 months, have you had to go without electric, gas, oil or water in your home?: no 1. Within the past 12 months, we worried whether our food would run out before we got money to buy more.: Never true 2. Within the past 12 months, the food we bought just didn't last and we didn't have money to get more.: Never true Has lack of transportation kept you from medical appointments or from doing things needed for daily living?: no Has anyone in your life made you feel unsafe or unsupported?: no How hard is it for you to pay for the very basics like food, housing, medical care, and heating? Would you say it is:: Not hard at all Do you want help finding or keeping work or a job?: I do not need or want help If for any reason you need help with day-to-day activities such as bathing, preparing meals, shopping, managing finances, etc., do you get the help you need?: I don?t need any help How often do you feel lonely or isolated from those around you?: Never Do you speak a language other than [place] at home?: No Does the patient want assistance with any of the above?: No PFSH All Active Problems (Updated 05/06/25 @ 11:27 by MACK VALERO) On deep vein thrombosis (DVT) prophylaxis (Acute) Hypokalemia (Acute) Pneumonia (Acute) Cancer related pain (Acute) Constipation due to opioid therapy (Acute) Edema of lower extremity (Acute) Cancer related pain (Acute) Prostate cancer metastatic to bone (Acute) Gastritis (Acute) Palliative care patient (Acute) Right leg weakness (Acute) Long toenail (Acute) Type 2 diabetes mellitus (Acute) Medication intolerance (Chronic) Physical and philosophical intolerance of medications .. Prefers no statin, despite Hx CVA. At risk of fracture due to osteoporosis (Acute) Due to prostate cancer Tx ... Listed on screening request from [facility] per pt. Vitamin D deficiency (Acute) Hypertension (Chronic) Dyslipidemia (Chronic) Prostate cancer (Chronic) Possible (+) findings, Dec 2021. Cancer free per pt report, 11/2020. Jan 2021 check in @ [facility]. 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 1 3-4-5 weeks Chondromalacia patellae of right knee (Acute) Right knee pain (Acute) Pain w/ ambulation, new fluid collection. x 1 month, with exacerbation during walk yesterday .. Encounter for rehabilitation (Acute) a. From an infarction. Elevated prostate specific antigen (PSA) (Acute 10/30/16) Right groin pain (Acute) Nocturia (Acute) Insomnia disorder related to known organic factor (Acute) Depression (Chronic) Anxiety (Chronic) Medical History Constipation Prediabetes Hx of colonic polyps History of prediabetes Hemiplegia affecting dominant side, post-stroke Ischemic stroke Urinary outflow obstruction H/O prostate cancer Anxiety with depression Rib pain on right side Weakness of right arm Tubular adenoma (~01/2021) Diverticula of colon Chemotherapy-induced fatigue leading to deconditioning Spasticity (02/22/15) Presumed post CVA (2013) Surgical History History of colonoscopy with polypectomy (~02/10/21) Colonoscopy - IV Sedation (10/07/15) DR.TERRY BURGOS Family History Brother Anxiety Father Diabetes Other Hypertension Social History Smoking/Tobacco Use Status: Never Smoking risk assessment performed?: Yes Alcohol Intake: current Alcohol Intake frequency: holidays/special occasions only Drug use: Never Substance use type: does not use Adopted: No Caregiver/Support person: No Foster care: No Household members: family Housing: house Do you need help understanding health information?: Rarely current occupation: Unemployed Sexually active: No Do you think of yourself as: lesbian/kc/homosexual Current gender identity: male Do you feel safe at home: Yes Do you feel safe in your relationship?: Yes Readmission Within the Past 30 Days Yes or No: No
[2025-05-07 10:00] LABS: Abs Immature Grans 0.03 10^3/uL (0.0-0.06); Absolute Basophil Count 0.01 10^3/uL (0.0-0.2); Absolute Lymphocyte Count 0.21 10^3/uL (1.2-3.4); Absolute Monocyte Count 0.43 10^3/uL (0.1-0.8); Absolute Neutrophil Count 3.37 10^3/uL (1.2-6.7); Basophils % 0.2 %; HCT 33.7 % (40.0-50.0); Immature Grans % 0.7 %; Lymphocytes % 5.2 %; MCHC 32.6 % (32.0-36.0); MCV 83 fL (80-95); Monocytes % 10.6 %; Neutrophils % 83.3 %; Platelet Count 278 10^3/uL (130-400); RBC 4.08 10^6/uL (4.36-5.78); RDW 12.7 % (11.8-14.1); RDW-SD 38.2 fL; WBC 4.05 10^3/uL (4.4-10.8)
[2025-05-07 10:12] LABS: Hemoglobin A1C 6.4 % (<5.7)
[2025-05-07 10:19] LABS: Anion Gap 6.1 mmol/L (3-11); BUN 16 mg/dL (7-18); CO2 31.9 mmol/L (21.0-32.0); CREATININE 0.8 mg/dL (0.70-1.30); Calcium 9.3 mg/dL (8.5-10.1); Chloride 95 mmol/L (98-107); Estimated GFR 98.83 (mL/min/1.73m2); Glucose 170 mg/dL (74-106); Potassium 3.7 mmol/L (3.5-5.1); Sodium 133 mmol/L (136-145)
--- NOTE | 2025-05-07 11:59 | DSE_ITS ---
Date of service: 05/08/25 Time of Service: 13:17 DS: Diagnosis Discharge Diagnosis (1) Pneumonia: Status: Acute (2) Cancer related pain: Status: Acute (3) Constipation due to opioid therapy: Status: Acute (4) Prostate cancer metastatic to bone: Status: Acute (5) Palliative care patient: Status: Acute (6) Type 2 diabetes mellitus: Status: Acute (7) Hypertension: Status: Chronic (8) Dyslipidemia: Status: Chronic (9) Hypokalemia: Status: Acute (10) On deep vein thrombosis (DVT) prophylaxis: Status: Acute Discharge Plan Disposition Patient Disposition: Home W/Hospice Services Condition: Improving Discharge Details Reason For Visit: pneumonia, intractable pain, abdominal pain Admit Date/Time: 05/06/25 10:18 Admit Provider: Manny Jack Attending Provider: Manny Jack Primary Care Provider: FELIX CARMEN [facility] Hospital Course: This 65-year-old male patient with a past medical history significant for metastatic prostate cancer, bones metastasis, type 2 diabetes, CVA, currently seen by palliative care patient on Dilaudid and fentanyl, who presented to the ED for evaluation of generalized pain. Patient stated having had regularly has significant abdominal pain and was seen a week ago in the ED , had CT imaging which revealed severe constipation and metastatic lesions, but no other acute process. Pain in the abdomen has recurred since then, he has also developed pain in his left shoulder/chest. He denied vomiting. He denied diarrhea. He had a bowel movement todays/p enema w/o resolution of pain. He denied syncope and did not report other symptoms. Fentanyl patch dosing has been increased recently. Also on Dilaudid PRN without improvement of his symptoms. In the ED the patient received IV hydromorphone. Chest abdomen pelvis CT was completed with significant findings for diffuse pattern of probable lymphangitic metastasis disease versus infection or combination of both, ,small pericardial effusion intrathoracic adenopathy in the mediastinal , enlarged lymph nodes in both hilar regions and and large ascending thoracic aorta measuring 3.9 x 4 cm without evidence of dissection. The patient was admitted to the medical surgical floor for pneumonia and intractable pain. Hydromorphone oral total dose transitioned to additional fentanyl patch dosing. Take as needed hydromorphone orally as ordered. The patient was seen by palliative care and will continue to follow outpatient. The patient will be discharged home with home health nursing and physical therapy and with PCP follow-up within 7 days of discharge. Discussed with Dr. Jack Home Meds and New Rx's Prescriptions: New levofloxacin 750 mg tablet 750 mg PO DAILY Qty: 3 0RF fentanyl 100 mcg/hr patch 72 hour 2 patch transdermal Q72H Qty: 10 0RF bisacodyl 10 mg Suppository 10 mg OR DAILY PRN PRNQty: 12 0RF docusate sodium [Colace] 100 mg Capsule 100 mg PO TID Qty: 90 0RF guaifenesin [Mucus Relief ER] 600 mg Tablet Extended Release 12hr 600 mg PO BID Qty: 14 0RF prochlorperazine maleate 10 mg Tablet 5 mg PO TID Qty: 60 0RF Continued lisinopril 40 mg tablet 40 mg PO DAILY Qty: 90 3RF senna 8.6 mg capsule 8.6 - 17.2 mg PO QHS Qty: 60 0RF ibuprofen 600 mg tablet 600 mg PO Q8H PRN (Reason: pain) Qty: 10 0RF Rx Instructions: Trial twice a day x 3 days. TAKE WITH FOOD (cheese/peanut butter) furosemide 20 mg tablet 20 mg PO DAILY PRN (Reason: edema) Qty: 30 0RF Rx Instructions: For edema ascorbate calcium (vitamin C) 500 mg tablet 1 gm PO DAILY clopidogrel [Plavix] 75 mg tablet 75 mg PO DAILY Qty: 90 3RF baclofen 10 mg tablet 10 mg PO BID PRN Lupron Depot (4 month) 30 mg syringe kit 30 mg IM [id number] Ensure Liquid PO ondansetron 8 mg tablet,disintegrating 8 mg PO Q8H PRN sucralfate [Carafate] 1 gram tablet 1 g PO QID omeprazole 20 mg capsule,delayed release(DR/EC) 20 mg PO DAILY Qty: 30 4RF cholecalciferol (vitamin D3) [Vitamin D3] 25 mcg (1,000 unit) Tablet,Chewable 25 mcg PO DAILY sertraline [Zoloft] 25 mg tablet 50 mg PO DAILY Patient Comments: Take 1 tablet by mouth once a day polyethylene glycol 3350 [Miralax] 17 gram/dose powder 17 g PO DAILY Qty: 119 0RF polyethylene glycol 3350 [Miralax] 17 gram/dose powder 17 g PO BID Qty: 119 0RF Changed hydromorphone 2 mg tablet 2 - 4 mg PO Q4H MDD 8 tabs PRNQty: 60 0RF Rx Instructions: for cancer related pain palliative care patient senna 8.6 mg capsule 8.6 mg PO BID Qty: 30 0RF Held amlodipine 10 mg tablet 10 mg PO DAILY Qty: 90 3RF Hold Instructions: Was not taking on admission Discontinued hydromorphone 4 mg tablet 4 mg PO Q4H MDD 6 tabs PRN (Reason: pain) Qty: 30 0RF fentanyl 100 mcg/hr patch 72 hour 1 patch transdermal Q72H MDD 175mcg/hr Qty: 5 0RF Rx Instructions: for cancer related pain, to be used w/75mcg patch for total dose of 175mcg/hr palliative care patient fentanyl 75 mcg/hr patch 72 hour 1 patch transdermal Q72H MDD 175mcg/hr Qty: 5 0RF Rx Instructions: to be used w/100mcg patches for total dose of 175mcg/hr Discharge Instructions Stand Alone Forms: Nursing Discharge Form Referrals: FELIX CARMEN [facility] [employer] APPRENTICE [Primary Care Provider] - (Follow-up within 7 days of discharge please. I called tour pcp and asked that they call you for a follow up. ) Activity:: Activity as Tolerated Equipment/Supplies:: Walker Diet:: heart healthy Discharge Orders Discharge Orders: Discharge Order (Routine); Ordered 05/08/25 Ordered By: Grace Cantrell DS: Summary Time Spent with Patient providing and/or coordinating discharge services: Greater than 30 minutes Status at Discharge Functional status at discharge: uses cane/walker Overall status at discharge: patient is progressing back to baseline Mental Status: mental status grossly normal Speech and Movement: speech and movement normal Mood: congruent mood Affect: normal affect Quality:SDOH Health Related Social Needs: Health related social needs feeling lonely/isolated (Z 60.8) Exam Narrative Exam Narrative: Constitutional The patient is in bed comfortable without acute distress Neuro:alert and oriented to self, person, place time and situation. No neurological focal deficit Resp: Unlabored breathing, clear lung bilaterally diminished bases L>R Cardio: regular rhythm, S1, S2, no murmur,trace edema to lower extremities R>L, bilateral radial and dorsalis pedis pulses are positive GI: Abdomen is not distended, soft and non tender, bowel sounds are present : no bladder distension Extremities: strength 4/5 to right arm and leg d/t past CVA Psych: RASS 0, congruent mood and normal affect. Psych Mental Status: mental status grossly normal Speech and Movement: speech and movement normal Mood: congruent mood Affect: normal affect DS: Data Vitals/I&O Vitals and I&O: Vital Signs Temperature 35.8 C L 05/07/25 07:39 Temperature Source Tympanic 05/07/25 07:39 Pulse 114 H 05/07/25 07:39 Pulse Rhythm Regular 05/06/25 11:55 Respiratory Rate 14 05/07/25 07:39 Respiratory Effort Normal, Non-Labored 05/06/25 11:55 Respiratory Depth Normal 05/06/25 11:55 Respiratory Pattern Normal 05/06/25 11:55 Blood Pressure 120/78 05/07/25 07:39 Blood Pressure Mean 92 05/07/25 07:39 Blood Pressure Position Supine 05/06/25 05:50 Pulse Oximetry 91 L 05/07/25 07:39 Oxygen Delivery Method Room Air 05/07/25 07:39 Oxygen Flow Rate 0 05/07/25 07:39 Pain Level 2 05/07/25 07:39 Intake & Output 05/06/25 05/06/25 05/07/25 11:59 23:59 11:59 Intake Total 170 / 170 890 / 890 Balance 170 / 170 890 / 890 Weight 54.2 kg Intake: IV 20 / 20 150 / 150 Oral 150 / 150 740 / 740 Other: Urine Color Pale Yellow Yellow Urine Appearance Clear Urine Odor Normal Normal Comment Pt voids ind. in toilet with stand by assist. immeasurable Data Completed and Pending Labs on day of discharge: Labs from last 24 hours 05/07/25 09:48 WBC 4.05 L RBC 4.08 L Hgb 11.0 L Hct 33.7 L MCV 83 MCH 27.0 MCHC 32.6 RDW 12.7 Plt Count 278 MPV 9.0 Immature Gran % 0.7 Neutrophils % 83.3 Lymphocytes % 5.2 Monocytes % 10.6 Eosinophils % 0.0 Basophils % 0.2 Nucleated RBC % 0.0 Absolute Neutrophils 3.37 Absolute Lymphocytes 0.21 L Absolute Monocytes 0.43 Absolute Eosinophils 0.00 Absolute Basophils 0.01 Sodium 133 L Potassium 3.7 Chloride 95 L Carbon Dioxide 31.9 Anion Gap 6.1 BUN 16 Creatinine 0.8 Est GFR (CKD-EPI 2020) 98.83 Glucose 170 H Hemoglobin A1c 6.4 H Calcium 9.3 PFSH All Active Problems (Updated 05/08/25 @ 13:34 by Grace Cantrell APRN) Advanced care planning/counseling discussion (Acute) On deep vein thrombosis (DVT) prophylaxis (Acute) Hypokalemia (Acute) Pneumonia (Acute) Cancer related pain (Acute) Constipation due to opioid therapy (Acute) Edema of lower extremity (Acute) Cancer related pain (Acute) Prostate cancer metastatic to bone (Acute) Gastritis (Acute) Palliative care patient (Acute) Right leg weakness (Acute) Long toenail (Acute) Type 2 diabetes mellitus (Acute) Medication intolerance (Chronic) Physical and philosophical intolerance of medications .. Prefers no statin, despite Hx CVA. At risk of fracture due to osteoporosis (Acute) Due to prostate cancer Tx ... Listed on screening request from [facility] per pt. Vitamin D deficiency (Acute) Hypertension (Chronic) Dyslipidemia (Chronic) Prostate cancer (Chronic) Possible (+) findings, Dec 2021. Cancer free per pt report, 11/2020. Jan 2021 check in @ [facility]. 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 1 3-4-5 weeks Chondromalacia patellae of right knee (Acute) Right knee pain (Acute) Pain w/ ambulation, new fluid collection. x 1 month, with exacerbation during walk yesterday .. Encounter for rehabilitation (Acute) a. From an infarction. Elevated prostate specific antigen (PSA) (Acute 10/30/16) Right groin pain (Acute) Nocturia (Acute) Insomnia disorder related to known organic factor (Acute) Depression (Chronic) Anxiety (Chronic) Medical History Constipation Prediabetes Hx of colonic polyps History of prediabetes Hemiplegia affecting dominant side, post-stroke Ischemic stroke Urinary outflow obstruction H/O prostate cancer Anxiety with depression Rib pain on right side Weakness of right arm Tubular adenoma (~01/2021) Diverticula of colon Chemotherapy-induced fatigue leading to deconditioning Spasticity (02/22/15) Presumed post CVA (2013) Surgical History History of colonoscopy with polypectomy (~02/10/21) Colonoscopy - IV Sedation (10/07/15) DR.TERRY BURGOS Family History Brother Anxiety Father Diabetes Other Hypertension Social History Smoking/Tobacco Use Status: Never Smoking risk assessment performed?: Yes Alcohol Intake: current Alcohol Intake frequency: holidays/special occasions only Drug use: Never Substance use type: does not use Adopted: No Caregiver/Support person: No Foster care: No Household members: family Housing: house Do you need help understanding health information?: Rarely current occupation: Unemployed Sexually active: No Do you think of yourself as: lesbian/kc/homosexual Current gender identity: male Do you feel safe at home: Yes Do you feel safe in your relationship?: Yes Time Spent with Patient Time Spent with Patient: 70-84 minutes4 Time was spent: preparing to see the patient(eg.review tests), obtaining and/or reviewing separately otained hiistory, ordering medications,tests, procedures, referring, communicating with other health daycare teacher, indepentently interpreting results, counseling the patient and care coordination
--- NOTE | 2025-05-07 13:17 | CMDISCH_ITS ---
Date of service: 05/07/25 Time of Service: 13:18 LACE Index Scoring Tool Questions: Length of Stay (in days): 1 Was the patient admitted via the E.D.?: Yes Comorbidities: Metastatic Solid Tumor E.D. Visits: 6 Answers: Total Score: 13 Risk of Readmission: High Risk Care Management Discharge Plan Reason for Hospitalization: pneumonia, intractable pain, abdominal pain Discharge Plan: Hernandez will be discharged home with new PT, today. He will follow up with his PCP, oncology, and plan of care. He will transport via private vehicle by family. Patient/Family Education Needs: Review of discharge instructions, activity, limitations and plan of care. Discuss Ask Me Three. Services Needed at Discharge: Home Health Care Services (PT) SDOH Health Related Social Needs: Health related social needs feeling lonely/isolated (Z 60.8)
[2025-05-07] MEDS: Enoxaparin 40 MG/0.4 ML SYR SC (13:34)
[2025-05-07] MEDS: fentaNYL 12 MCG PATCH TD (13:36)
--- NOTE | 2025-05-07 14:12 | W.PALLCONSUL ---
Date of service: 05/07/25 Time of Service: 14:00 History of Present Illness Narrative: Travis is a 65 year old with prostate cancer, metastatic to lymph nodes, lung and widely metastatic to bones. He is currently admitted for pain control. He is followed by Palliative care outpatient. Palliative is consulted for pain control and to discuss goals of care. He started Pluvicto in March 2025. His most recent PSA increased from 77 (02/18/25) to 249 (04/15/2025). Apparently the PSA can rise initially with Pluvicto. Discussed concern for rising PSA in the setting of worsening pain and weakness. Discussed the option of shifting to comfort focused care when he is ready or when he no longer has options for treatment. Reviewed the benefits of hospice. His support people, Emil, brother and Jill, friend were both present for the visit and feel hospice would offer much needed support. His pain is under better control here at the hospital. His fentanyl patch is being titrated. He is using hydromorphone PRN. He has required 8 mg over the last 24 hrs. Pain and constipation are his biggest concerns. He has not had a BM for 3 days. The last time he was constipated he had an enema which helped. He would like to try a suppository. Both enema and suppository ordered for PRN use. Discussed using suppository or enema (whichever works better) q3 days if he does not have BM. Reviewed CODE STATUS. He is clear he is a DNR/DNI. Reviewed and completed COLST. He is clear that he does not want a feeding tube. He would prefer to be at home at the end of his life but if it does not work out that way and he has to be in the hospital, that is okay with him. Reviewed [facility] paperwork. He would like to update to name Emil first and Jill second. He tired and prefers to do this next week when he is seen in the office. Assessment and Plan Assessment and plan (1) Pneumonia: Status: Acute Assessment and plan: IV levaquin then oral at discharge As per imaging on admission Lungs: Multifocal ground-glass opacities with interstitial thickening and nodular infiltrates in both lungs. Pleural spaces: Small bilateral pleural effusions. Pleural and pericardial effusions. (2) Cancer related pain: Status: Acute Assessment and plan: His fentanyl patch dose is being titrated, continue PRN oral hydromorphone (3) Constipation due to opioid therapy: Status: Acute Assessment and plan: Discussed importance of regular bowel medication. Recommended that he do suppository or enema every 3 days if no BM. Constipation increases his pain significantly. (4) Prostate cancer metastatic to bone: Status: Acute Assessment and plan: Widespread osseous metastases. Compression deformity at T7 Also with mets to lyng and lymph nodes. Rising PSA is of concern, most recent 249 from 77.7 in 01/2025. This is in the setting of increased pain. Monitor. (5) Palliative care patient: Status: Acute (6) Hypokalemia: Status: Acute Assessment and plan: Resolved s/p supplementation BMP in AM (7) Advanced care planning/counseling discussion: Status: Acute Assessment and plan: Travis is a 65 year old with prostate cancer, metastatic to lymph nodes, lung and widely metastatic to bones. He is currently admitted for pain control. He is followed by Palliative care outpatient. Palliative is consulted for pain control and to discuss goals of care. He started Pluvicto in March 2025. His most recent PSA increased from 77 (02/18/25) to 249 (04/15/2025). Apparently the PSA can rise initially with Pluvicto. Discussed concern for rising PSA in the setting of worsening pain and weakness. Discussed the option of shifting to comfort focused care when he is ready or when he no longer has options for treatment. Reviewed the benefits of hospice. His support people, Emil, brother and Jill, friend were both present for the visit and feel hospice would offer much needed support. His pain is under better control here at the hospital. His fentanyl patch is being titrated. He is using hydromorphone PRN. He has required 8 mg over the last 24 hrs. Pain and constipation are his biggest concerns. He has not had a BM for 3 days. The last time he was constipated he had an enema which helped. He would like to try a suppository. Both enema and suppository ordered for PRN use. Discussed using suppository or enema (whichever works better) q3 days if he does not have BM. Reviewed CODE STATUS. He is clear he is a DNR/DNI. Reviewed and completed COLST. He is clear that he does not want a feeding tube. He would prefer to be at home at the end of his life but if it does not work out that way and he has to be in the hospital, that is okay with him. Reviewed [facility] paperwork. He would like to update to name Emil saavedra and Jill nix. He tired and prefers to do this next week when he is seen in the office. He has f/u scheduled for 05/13 in the Palliative office. PFSH All Active Problems (Updated 05/07/25 @ 16:35 by Cherry Ashton NP) Advanced care planning/counseling discussion (Acute) On deep vein thrombosis (DVT) prophylaxis (Acute) Hypokalemia (Acute) Pneumonia (Acute) Cancer related pain (Acute) Constipation due to opioid therapy (Acute) Edema of lower extremity (Acute) Cancer related pain (Acute) Prostate cancer metastatic to bone (Acute) Gastritis (Acute) Palliative care patient (Acute) Right leg weakness (Acute) Long toenail (Acute) Type 2 diabetes mellitus (Acute) Medication intolerance (Chronic) Physical and philosophical intolerance of medications .. Prefers no statin, despite Hx CVA. At risk of fracture due to osteoporosis (Acute) Due to prostate cancer Tx ... Listed on screening request from [facility] per pt. Vitamin D deficiency (Acute) Hypertension (Chronic) Dyslipidemia (Chronic) Prostate cancer (Chronic) Possible (+) findings, Dec 2021. Cancer free per pt report, 11/2020. Jan 2021 check in @ [facility]. 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 1 3-4-5 weeks Chondromalacia patellae of right knee (Acute) Right knee pain (Acute) Pain w/ ambulation, new fluid collection. x 1 month, with exacerbation during walk yesterday .. Encounter for rehabilitation (Acute) a. From an infarction. Elevated prostate specific antigen (PSA) (Acute 10/30/16) Right groin pain (Acute) Nocturia (Acute) Insomnia disorder related to known organic factor (Acute) Depression (Chronic) Anxiety (Chronic) Medical History Constipation Prediabetes Hx of colonic polyps History of prediabetes Hemiplegia affecting dominant side, post-stroke Ischemic stroke Urinary outflow obstruction H/O prostate cancer Anxiety with depression Rib pain on right side Weakness of right arm Tubular adenoma (~01/2021) Diverticula of colon Chemotherapy-induced fatigue leading to deconditioning Spasticity (02/22/15) Presumed post CVA (2013) Surgical History History of colonoscopy with polypectomy (~02/10/21) Colonoscopy - IV Sedation (10/07/15) DR.TERRY BURGOS Family History Brother Anxiety Father Diabetes Other Hypertension Social History Smoking/Tobacco Use Status: Never Smoking risk assessment performed?: Yes Alcohol Intake: current Alcohol Intake frequency: holidays/special occasions only Drug use: Never Substance use type: does not use Adopted: No Caregiver/Support person: No Foster care: No Household members: family Housing: house Do you need help understanding health information?: Rarely current occupation: Unemployed Sexually active: No Do you think of yourself as: lesbian/kc/homosexual Current gender identity: male Do you feel safe at home: Yes Do you feel safe in your relationship?: Yes Results Last Vital Signs Temp 35.8 C L 05/07/25 07:39 Pulse 114 H 05/07/25 07:39 Resp 14 05/07/25 07:39 BP 120/78 05/07/25 07:39 Pulse Ox 91 L 05/07/25 07:39 Labs 05/07/25 09:48 05/07/25 09:48 Labs: Laboratory Results - last 24 hr 05/07/25 09:48 WBC 4.05 L RBC 4.08 L Hgb 11.0 L Hct 33.7 L MCV 83 MCH 27.0 MCHC 32.6 RDW 12.7 Plt Count 278 MPV 9.0 Immature Gran % 0.7 Neutrophils % 83.3 Lymphocytes % 5.2 Monocytes % 10.6 Eosinophils % 0.0 Basophils % 0.2 Nucleated RBC % 0.0 Absolute Neutrophils 3.37 Absolute Lymphocytes 0.21 L Absolute Monocytes 0.43 Absolute Eosinophils 0.00 Absolute Basophils 0.01 Sodium 133 L Potassium 3.7 Chloride 95 L Carbon Dioxide 31.9 Anion Gap 6.1 BUN 16 Creatinine 0.8 Est GFR (CKD-EPI 2020) 98.83 Glucose 170 H Hemoglobin A1c 6.4 H Calcium 9.3 Time Spent Time Spent with Patient Time Spent(min): 92
--- NOTE | 2025-05-07 14:23 | PDOC.CMIN ---
Date of service: 05/07/25 Time of Service: 14:23 Care Management Initial Assmt Initial Assessment Reason for Hospitalization: pneumonia, intractable pain, abdominal pain Functional Status/Living Situation Patient Presentation: Travis was sitting up in his bed, visiting with his brother and their friend, when CM arrived. He presented to the ED for an evaluation of generalized pain. Travis is a palliative care patient and is followed outpatient. Travis lives in a home in [facility], with his brother. Travis states that he currently does not have home health services, but wishes to have home health for PT; CM requested a PT consult. Per Travis, there are 2 sets of stairs in his home; he states, the full bathroom in the home, is up a flight of stairs, which has become more difficult to climb. Travis states that he drives little to not at all, anymore; his brother is a good support for him and is his primary from of transportation. CM will continue to follow. Town of Residence: [facility] Resides with: Other (Brother Koko, and friend - Jill ) Significant Other/Family: Local Natural Supports: Family, and friends Employment Status: Retired ([employer] ) Instrumental Activities of Daily Living (ADLs): Independent Activities/Hobbies/SocialSupport: Gardening, daily walks and stone work Medications Medication Management: No Issues/Barriers identified Physical Functioning/Mobility Assistive Device: Looking to obtain a 4WW Advance Directives Advance Directives: Do you have an Advance Directive: Y 09/09/18 09:13 AD On File at [facility]: Y 09/09/18 09:13 Date Asked 04/04/25 04/12/25 02:48 AD Date Reviewed 05/06/25 05/06/25 11:31 COLST On File at [facility] COLST Date Scanned Code Status Resuscitation Status DNR/DNI Portal Pt does not currently have a portal and education provided: Yes Insurance Coverage/Financial Issues Insurance: BC/BS [place] [facility] Advantage Care Team Visit Care Team Role Provider Type FELIX CARMEN NP Primary Care Provider NON-[facility] STAFF PHYSICIAN InPatient Koko Burks Other Providers OTHER Sergio Stiles MD Emergency Provider [facility] STAFF PHYSICIAN Manny Jack Admit Provider [facility] STAFF PHYSICIAN Attending Provider Discharge Potential Discharge Needs: PCP F/U Appt and Other (oncology) Anticipated Barriers to Discharge: Medical Status Patient/Family Education Needs: Review discharge instructions, discuss Ask Me Three Transportation: Private vehicle Plan: Anticipate Hernandez will be discharged home with new PT, once medically ready. He will follow up with his PCP, oncology, palliative and plan of care. He will transport via private vehicle by family. CM will continue to follow. Social Determinants of Health Screening Social Determinants of health last assessed in clinic: 05/07/25 Will the Patient Participate in the Screening?: Yes Do you worry about having a steady place to live?: no Problems where you live: no known problems In the past 12 months, have you had to go without electric, gas, oil or water in your home?: no 1. Within the past 12 months, we worried whether our food would run out before we got money to buy more.: Never true 2. Within the past 12 months, the food we bought just didn't last and we didn't have money to get more.: Never true Has lack of transportation kept you from medical appointments or from doing things needed for daily living?: no Has anyone in your life made you feel unsafe or unsupported?: no How hard is it for you to pay for the very basics like food, housing, medical care, and heating? Would you say it is:: Not hard at all Do you want help finding or keeping work or a job?: I do not need or want help If for any reason you need help with day-to-day activities such as bathing, preparing meals, shopping, managing finances, etc., do you get the help you need?: I don?t need any help How often do you feel lonely or isolated from those around you?: Never Do you speak a language other than Kyrgyz at home?: No Does the patient want assistance with any of the above?: No PFSH All Active Problems (Updated 05/06/25 @ 11:27 by MACK VALERO) On deep vein thrombosis (DVT) prophylaxis (Acute) Hypokalemia (Acute) Pneumonia (Acute) Cancer related pain (Acute) Constipation due to opioid therapy (Acute) Edema of lower extremity (Acute) Cancer related pain (Acute) Prostate cancer metastatic to bone (Acute) Gastritis (Acute) Palliative care patient (Acute) Right leg weakness (Acute) Long toenail (Acute) Type 2 diabetes mellitus (Acute) Medication intolerance (Chronic) Physical and philosophical intolerance of medications .. Prefers no statin, despite Hx CVA. At risk of fracture due to osteoporosis (Acute) Due to prostate cancer Tx ... Listed on screening request from [facility] per pt. Vitamin D deficiency (Acute) Hypertension (Chronic) Dyslipidemia (Chronic) Prostate cancer (Chronic) Possible (+) findings, Dec 2021. Cancer free per pt report, 11/2020. Jan 2021 check in @ [facility]. 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 1 3-4-5 weeks Chondromalacia patellae of right knee (Acute) Right knee pain (Acute) Pain w/ ambulation, new fluid collection. x 1 month, with exacerbation during walk yesterday .. Encounter for rehabilitation (Acute) a. From an infarction. Elevated prostate specific antigen (PSA) (Acute 10/30/16) Right groin pain (Acute) Nocturia (Acute) Insomnia disorder related to known organic factor (Acute) Depression (Chronic) Anxiety (Chronic) Medical History Constipation Prediabetes Hx of colonic polyps History of prediabetes Hemiplegia affecting dominant side, post-stroke Ischemic stroke Urinary outflow obstruction H/O prostate cancer Anxiety with depression Rib pain on right side Weakness of right arm Tubular adenoma (~01/2021) Diverticula of colon Chemotherapy-induced fatigue leading to deconditioning Spasticity (02/22/15) Presumed post CVA (2013) Surgical History History of colonoscopy with polypectomy (~02/10/21) Colonoscopy - IV Sedation (10/07/15) DR.TERRY BURGOS Family History Brother Anxiety Father Diabetes Other Hypertension Social History Smoking/Tobacco Use Status: Never Smoking risk assessment performed?: Yes Alcohol Intake: current Alcohol Intake frequency: holidays/special occasions only Drug use: Never Substance use type: does not use Adopted: No Caregiver/Support person: No Foster care: No Household members: family Housing: house Do you need help understanding health information?: Rarely current occupation: Unemployed Sexually active: No Do you think of yourself as: lesbian/kc/homosexual Current gender identity: male Do you feel safe at home: Yes Do you feel safe in your relationship?: Yes Readmission Within the Past 30 Days Yes or No: No
--- NOTE | 2025-05-07 14:44 | PGE_ITS ---
Date of Service Date of service: 05/07/25 Time of Service: 14:45 Assessment and Plan Assessment and plan (1) Pneumonia: Status: Acute Assessment and plan: IV levaquin then oral at discharge As per imaging on admission Lungs: Multifocal ground-glass opacities with interstitial thickening and nodular infiltrates in both lungs. Pleural spaces: Small bilateral pleural effusions. Pleural and pericardial effusions. (2) Cancer related pain: Status: Acute Assessment and plan: Continue increased dose fentanyl patch and PRN oral hydromorphone Consider PRN IV hydromorphone if not effective (3) Constipation due to opioid therapy: Status: Acute Assessment and plan: Continue home regimen of bowel meds and adjust as discussed with patient for a more regimented schedule (4) Prostate cancer metastatic to bone: Status: Acute Assessment and plan: As per imaging Widespread osseous metastases. Compression deformity at T7 appears chronic Also Possible lymphatic spread of tumor/metastasis from imaging of 05/01/25 (5) Palliative care patient: Status: Acute Assessment and plan: Palliative consult - goals of care (6) Type 2 diabetes mellitus: Status: Acute Assessment and plan: A1C in 2022 confirmed Dx A1C pending (7) Hypertension: Status: Chronic Assessment and plan: Not currently on BP meds - will confirm (8) Dyslipidemia: Status: Chronic Assessment and plan: Not on statin currently (9) Hypokalemia: Status: Acute Assessment and plan: Resolved s/p supplementation BMP in AM (10) On deep vein thrombosis (DVT) prophylaxis: Status: Acute Assessment and plan: Continue LMWH Discussed with Dr. Jack Subjective Subjective Patient reports: no new complaints, feels better, tolerating liquids well, tolerating a regular diet, voiding w/o difficulty, no bowel movement and nausea; denies diarrhea, vomiting, shortness of breath or fever Exam Narrative Exam Narrative: Constitutional The patient is in bed comfortable without acute distres Neuro:alert and oriented to self, person, place time and situation. No neurological focal deficit Resp: Unlabored breathing, clear lung bilaterally diminished bases L>R Cardio: regular rhythm, S1, S2, no murmur,trace edema to lower extremities bilateral radial and dorsalis pedis pulses are positive, palpable GI: Abdomen is not distended, soft and non tender, bowel sounds are present : Negative Costovertebral angle tenderness, no bladder distension Back/spine/Pelvis: normal alignment Integumentary: No skin lesions or rash Extremities: strength 4/5 to right arm and leg d/t past CVA Psych: RASS 0, congruent mood and normal affect. Objective Last Vital Signs Temp 35.8 C L 05/07/25 07:39 Pulse 114 H 05/07/25 07:39 Resp 14 05/07/25 07:39 BP 120/78 05/07/25 07:39 Pulse Ox 91 L 05/07/25 07:39 Laboratory Results - last 24 hr 05/07/25 09:48 WBC 4.05 L RBC 4.08 L Hgb 11.0 L Hct 33.7 L MCV 83 MCH 27.0 MCHC 32.6 RDW 12.7 Plt Count 278 MPV 9.0 Immature Gran % 0.7 Neutrophils % 83.3 Lymphocytes % 5.2 Monocytes % 10.6 Eosinophils % 0.0 Basophils % 0.2 Nucleated RBC % 0.0 Absolute Neutrophils 3.37 Absolute Lymphocytes 0.21 L Absolute Monocytes 0.43 Absolute Eosinophils 0.00 Absolute Basophils 0.01 Sodium 133 L Potassium 3.7 Chloride 95 L Carbon Dioxide 31.9 Anion Gap 6.1 BUN 16 Creatinine 0.8 Est GFR (CKD-EPI 2020) 98.83 Glucose 170 H Hemoglobin A1c 6.4 H Calcium 9.3 Time Spent with Patient Time Spent with Patient: >50 minutes Time was spent: preparing to see the patient(eg.review tests), obtaining and/or reviewing separately otained hiistory, ordering medications,tests, procedures, referring, communicating with other health healthcare associate, indepentently interpreting results, counseling the patient and care coordination
--- NOTE | 2025-05-07 15:01 | CHAPLAIN ---
I visited with Travis last evening, shortly after he was admitted. He came the ED at 1 am because of pain. He has prostrate cancer with bone mets. Travis said he's been to the ED a few times because of pain. He recently started on a new drug and is waiting to see if it's been affective. Travis lives with this twin brother, Koko, who is his primary support. A friend, Jill, is also supportive. Travis and Koko grew up in the area, with three sisters. Travis lived in [place] when he was younger and really enjoyed that experience. 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 Travis is a palliative care patient and said he has a good relationship with Cherry Ashton NP, and was meeting with her this afternoon. I will continue to visit.
--- NOTE | 2025-05-07 16:08 | PT.INNT ---
PT Notes Visit Reasons: pneumonia, intractable pain, abdominal pain Patient and patient family were with DISPATCH CLERK Cherry Ashton for a palliative consult from 14:43-16:06 PM to cover improtant and critical issues surrounding his care. Patient and patient's family were told that bonding equipment operator PT Vanessa will do the evalaution tomorrow morning which Ron said was okay as she knows PT Vanessa so well.
[2025-05-07] MEDS: Na Phosphate Enema-Adult 133 ML BTL PR (18:11)
[2025-05-07 19:41] VITALS: BP 120/85; PULSE 111; RESP 16; TEMP 36.4; O2SAT 93
[2025-05-07] MEDS: guaiFENesin 600 MG TABCR PO (21:06)
[2025-05-07] MEDS: Prochlorperazine 10 MG TAB 5 MG PO (21:07)
[2025-05-07] MEDS: HYDROmorphone 2 MG/ML SYR IVP (23:00)
[2025-05-08] MEDS: HYDROmorphone 2 MG TAB PO ×3 (02:10→16:57)
[2025-05-08] MEDS: levoFLOXacin 750 MG/150 ML BAG 100 MG IVPB (06:51)
[2025-05-08] MEDS: Normal Saline Flush 10 ML SYR IVP ×3 (06:52→08:23)
[2025-05-08] MEDS: Baclofen 10 MG TAB PO (06:52)
[2025-05-08] MEDS: Prochlorperazine 10 MG/2 ML VIAL 5 MG IVP (07:04)
[2025-05-08 07:25] VITALS: BP 130/84; PULSE 110; RESP 16; TEMP 36.5; O2SAT 92
[2025-05-08] MEDS: guaiFENesin 600 MG TABCR PO (08:23)
[2025-05-08] MEDS: Prochlorperazine 10 MG TAB 5 MG PO ×2 (08:23→14:28)
[2025-05-08] MEDS: Polyethylene Glycol 3350 17 GM PACKET PO (08:23)
[2025-05-08] MEDS: Docusate Sodium 100 MG CAP PO ×2 (08:24→14:28)
[2025-05-08] MEDS: Omeprazole 20 MG CAPCR PO (08:24)
[2025-05-08] MEDS: Ascorbic Acid 500 MG TAB 1000 MG PO (08:24)
[2025-05-08] MEDS: Senna TAB 1 TAB PO (08:24)
[2025-05-08] MEDS: Cholecalciferol (Vitamin D3) 400 UNIT TAB 1000 UNIT PO (08:24)
[2025-05-08] MEDS: Clopidogrel 75 MG TAB PO (08:24)
[2025-05-08] MEDS: fentaNYL 100 MCG PATCH 200 MCG TD (10:58)
--- NOTE | 2025-05-08 11:44 | PT.INIE ---
PT Notes Visit Reasons: pneumonia, intractable pain, abdominal pain Inpatient Physical Therapy Evaluation Date: 05/08/25 Referring Doctor: Grace Cantrell NP PT Orders: PT CONSULT: eval for assistive device Precautions: fall, standard Patient Profile/Admitting Diagnosis: Travis is a 65 year old male with metastatic prostate cancer, admitted for pain management. PT referral received for assessment for AD. Travis has chronic right hemiparesis following stroke, DM, HTN. Had a palliative consultation yesterday, and is considering transition to hospice care. Social History/Home Situation: Travis lives in a private home with his twin brother. His brother and their friend, Jessica, are present and supportive at time of consult. He typically ambulates without a device, although uses a cane occasionally. Has a custom AFO for right lower extremity, which he prefers not to utilize. He continues to get up and down from the ground to garden, although reports that he now requires external support to get back (utilizes a bucket or shovel to do so). He is considering obtaining a 4 WW to allow for rest periods during ambulation. Equipment Owned/DME: cane, AFO Subjective: Travis states that his pain remains poorly controlled. He was up most of the night. Remains very fatigued in general. Feels that otherwise his balance and mobility are at baseline. Objective: General Observation: Resting in chair with family present. IV to LUE. Edema noted in bilateral feet and ankles. Mental Status: A and O x 3. Pleasant and cooperative throughout. Pain: Pain throughout back and trunk ROM: Right Lower Extremity: Lacking 10 degrees terminal knee extension on the right and 10 degrees dorsiflexion. Left Lower Extremity: WFL Strength: Right Lower Extremity: Hip flexion 4/5. Quads 4+/5. Ankle dorsiflexion 3 -/5. EHL 4/5. Left Lower Extremity: Hip flexion 5/5. Quads 5/5. Ankle dorsiflexion 5/5. EHL 5/5. Bed Mobility/Transfers: Sit?stand: Supervision Stand?sit: Supervision Gait: Ambulates 120 feet x 2, with FWW. Performs with SBA for first repetition, requiring CGA for second due to minor losses of balance with requirement of stepping strategies. Balance: Static Sitting: Normal Dynamic Sitting: normal Static Standing: Good Dynamic Standing: Fair Special Tests: Mobility Limitations Standardized Measure [employer] AM-PAC 6 clicks Basic Mobility Inpatient Short Form: Raw Score: 24 CMS Score: 0% impairment Informed Consent/Education: Patient instructed in purpose of PT consult and plan of care. Treatment: Initial Evaluation (61992) Therapeutic Exercises ([id number]): Instructed in balance retraining activities, including the following, which were completed with CGA standing at his walker: Small base of support standing x 30 seconds Single-leg standing x 30 seconds each Additionally instructed in bed exercises for daily completion. Access Code: [email or web address] URL: [email or web address] Date: 05/08/2025 Prepared by: Vanessa Peralta Exercises - Supine Ankle Pumps - 1 x daily - 7 x weekly - 3 sets - 10 reps - Supine Heel Slide - 1 x daily - 7 x weekly - 3 sets - 10 reps - Supine Gluteal Sets - 1 x daily - 7 x weekly - 3 sets - 10 reps - Supine Shoulder Flexion Extension Full Range AROM - 1 x daily - 7 x weekly - 3 sets - 10 reps - Supine Lower Trunk Rotation - 1 x daily - 7 x weekly - 3 sets - 10 reps Assessment: Patient is a 65year old male referred to physical therapy services in acute care setting, where he is being managed for poorly controlled pain in the presence of metastatic prostate cancer. Travis has underlying mobility impairments related to chronic right hemiparesis, however demonstrates baseline level of mobility today with minor balance impairments and decreased activity tolerance. He is considering transition to hospice level care, but otherwise would benefit from home health PT for continued balance retraining. Would benefit from utilization of 4 WW to allow for seated rest periods during ambulation. These are unfortunately not available through our DME provider, however patient is looking into obtaining through the local [facility]. He currently demonstrates the following impairment level findings: 1. Decreased activity tolerance 2. Decreased right lower extremity strength due to chronic hemiparesis 3. Gait impairments due to chronic hemiparesis 4. Balance impairment Impairments are contributing to the following functional limitations: 1. Easily fatigues with household distance ambulation, with requirement of external support for second repetition of walking 2. Increased risk for falls Patient is assessed as Low 48965 complexity based on the following: History: as above Examination: As above Presentation: Evolving Decision Making: Low complexity Goals: Goals X1 week 1. Supine-Sit : supervision 2. Sit-Supine : supervision 3. Sit-Stand : supervision 4. Stand-Sit : supervision 5. Bed-Chair : supervision with FWW 6. Chair-Bed : supervision with FWW 7. Gait: Supervision with FWW x 150 feet Plan of Care/Treatment Plan: 1-2x/day, 7 days/week x 1 week. Plan of care has been reviewed with the TRIMMER MACHINE providing the service under Physical Therapy direction. Initiate Physical Therapy intervention for strengthening, bed mobility, transfers, gait, stairs, balance training, use of assistive device. DISCHARGE RECOMMENDATIONS: Home with services (home health PT) TREATMENT CODE/TIME: [id number] (04109, 84287) Vanessa Peralta, PT, DPT [facility] All Active Problems (Updated 05/07/25 @ 16:35 by Cherry Ashton NP) Advanced care planning/counseling discussion (Acute) On deep vein thrombosis (DVT) prophylaxis (Acute) Hypokalemia (Acute) Pneumonia (Acute) Cancer related pain (Acute) Constipation due to opioid therapy (Acute) Edema of lower extremity (Acute) Cancer related pain (Acute) Prostate cancer metastatic to bone (Acute) Gastritis (Acute) Palliative care patient (Acute) Right leg weakness (Acute) Long toenail (Acute) Type 2 diabetes mellitus (Acute) Medication intolerance (Chronic) Physical and philosophical intolerance of medications .. Prefers no statin, despite Hx CVA. At risk of fracture due to osteoporosis (Acute) Due to prostate cancer Tx ... Listed on screening request from [facility] per pt. Vitamin D deficiency (Acute) Hypertension (Chronic) Dyslipidemia (Chronic) Prostate cancer (Chronic) Possible (+) findings, Dec 2021. Cancer free per pt report, 11/2020. Jan 2021 check in @ [facility]. 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 1 3-4-5 weeks Chondromalacia patellae of right knee (Acute) Right knee pain (Acute) Pain w/ ambulation, new fluid collection. x 1 month, with exacerbation during walk yesterday .. Encounter for rehabilitation (Acute) a. From an infarction. Elevated prostate specific antigen (PSA) (Acute 10/30/16) Right groin pain (Acute) Nocturia (Acute) Insomnia disorder related to known organic factor (Acute) Depression (Chronic) Anxiety (Chronic) Medical History Constipation Prediabetes Hx of colonic polyps History of prediabetes Hemiplegia affecting dominant side, post-stroke Ischemic stroke Urinary outflow obstruction H/O prostate cancer Anxiety with depression Rib pain on right side Weakness of right arm Tubular adenoma (~01/2021) Diverticula of colon Chemotherapy-induced fatigue leading to deconditioning Spasticity (02/22/15) Presumed post CVA (2013) Surgical History History of colonoscopy with polypectomy (~02/10/21) Colonoscopy - IV Sedation (10/07/15) DR.TERRY BUROGS
[2025-05-08] MEDS: Enoxaparin 40 MG/0.4 ML SYR SC (12:32)
--- NOTE | 2025-05-08 13:34 | PDOC.HHF2F_ITS ---
Home Health Referral Home Health Orders Clinical synopsis of why skilled professionals are needed: This 65-year-old male patient with a past medical history significant for metastatic prostate cancer, bones metastasis, type 2 diabetes, CVA, currently seen by palliative care patient on Dilaudid and fentanyl, who presented to the ED for evaluation of generalized pain. Patient stated having had regularly has significant abdominal pain and was seen a week ago in the ED , had CT imaging which revealed severe constipation and metastatic lesions, but no other acute process. Pain in the abdomen has recurred since then, he has also developed pain in his left shoulder/chest. He denied vomiting. He denied diarrhea. He had a bowel movement todays/p enema w/o resolution of pain. He denied syncope and did not report other symptoms. Fentanyl patch dosing has been increased recently. Also on Dilaudid PRN without improvement of his symptoms. In the ED the patient received IV hydromorphone. Chest abdomen pelvis CT was completed with significant findings for diffuse pattern of probable lymphangitic metastasis disease versus infection or combination of both, ,small pericardial effusion intrathoracic adenopathy in the mediastinal , enlarged lymph nodes in both hilar regions and and large ascending thoracic aorta measuring 3.9 x 4 cm without evidence of dissection. The patient was admitted to the medical surgical floor for pneumonia and intractable pain. Hydromorphone oral total dose transitioned to additional fentanyl patch dosing. Take as needed hydromorphone orally as ordered. The patient was seen by palliative care and will continue to follow outpatient. The patient will be discharged home with home health nursing and physical therapy and with PCP follow-up within 7 days of discharge. Discussed with Dr. Jack Registered Nurse: Check all that apply Instruct on new or changed medication(s)/assess compliance: Ordered Assess for exacerbation of medical condition, instruct patient/caregivers on signs and symptoms to report for early detection: Ordered Physical Therapist: Check all that apply Increase strength & endurance for safe mobility at home: Ordered To design/establish home maintenance program: Ordered Fall reduction therapy program for patient with history of frequent falls: Ordered Better Breathing Program: Ordered Home Bound Status Requires the aid of supportive device (check all that apply): Walker Describe why leaving home would require a considerable and taxing effort: Requires frequent rest periods Encounter Date and Reason: I certify that a FTF encounter for this patient was performed on May 08, 2025 and that such encounter was related to the primary reason the patient requires home health services. The encounter was conducted in the following manner: * By me as the certifying physician, HUMAN RESOURCES SAFETY MANAGER, PA or * By an inpatient physician, HUMAN RESOURCES SAFETY MANAGER or PA during an inpatient stay who communicated findings to me, Certification And Authentication I certify that I composed the above information based on my clinical judgment relating to this patient's medical condition and, if applicable, clinical findings communicated to me by the NPP or inpatient physician who performed the FTF encounter. Name of Provider that will be monitoring home health services: FELIX CARMEN
--- NOTE | 2025-05-08 16:55 | CMDISCH_ITS ---
Date of service: 05/08/25 Time of Service: 16:55 LACE Index Scoring Tool Questions: Length of Stay (in days): 2 Was the patient admitted via the E.D.?: Yes Comorbidities: Cerebrovascular Disease, Diabetes w/o Complication and Metastatic Solid Tumor E.D. Visits: 6 Answers: Total Score: 14 Risk of Readmission: High Risk Care Management Discharge Plan Reason for Hospitalization: pneumonia, intractable pain, abdominal pain Discharge Plan: Travis is discharged home with continued services of HH PT and the addition of RN. He will f/u with his PCP and with palliative care. Travis will discharge home in a private vehicle with family. Patient/Family Education Needs: Review of discharge instructions, activity, limitations, and discuss Ask me 3. SDOH Health Related Social Needs: Health related social needs feeling lonely/isolated (Z 60.8)
== END 2025-05-08 17:02 | disposition hospice, home (50) | DRG 194 ==
LOC: ER 10:08 → MS 11:26
PROVIDERS: Student in an Organized Health Care Education/Training Program; Admitting Provider Family Medicine; Emergency Provider Student in an Organized Health Care Education/Training Program; PCP Nurse Practitioner Family; Responsible Provider Nurse Practitioner Acute Care; Visit Provider Family Medicine
DX: J18.9 Pneumonia, unspecified organism (principal); C77.8 Secondary and unspecified malignant neoplasm of lymph nodes of multiple regions; C79.51 Secondary malignant neoplasm of bone; C78.00 Secondary malignant neoplasm of unspecified lung; I69.351 Hemiplegia and hemiparesis following cerebral infarction affecting right dominant side; I31.39 Other pericardial effusion (noninflammatory); J91.8 Pleural effusion in other conditions classified elsewhere; G89.3 Neoplasm related pain (acute) (chronic); K59.03 Drug induced constipation; I77.810 Thoracic aortic ectasia; C61 Malignant neoplasm of prostate; Z51.5 Encounter for palliative care; E11.9 Type 2 diabetes mellitus without complications; I10 Essential (primary) hypertension; E78.5 Hyperlipidemia, unspecified; E87.6 Hypokalemia; Z79.899 Other long term (current) drug therapy; T40.2X5A Adverse effect of other opioids, initial encounter; Z66 Do not resuscitate; R60.0 Localized edema; R53.1 Weakness; E55.9 Vitamin D deficiency, unspecified; R35.1 Nocturia; G47.01 Insomnia due to medical condition
CPT/HCPCS: 00123; 36415; 71275; 74177; 80048; 80053; 83690; 93005; 96374; 96375; 97110; 97161; 99285; J1650; 83036; 84484; 85025; 85379; 93010; 99223; 99233; 99239; J0780; J1171; J1938; J1956; J2405; J3490

== ENCOUNTER 2025-06-02 18:23 | Inpatient (IN) | payer OTHER, SELFPAY ==
[2025-06-02 18:40] VITALS: BP 123/73; PULSE 122; RESP 13; TEMP 36.8; O2SAT 83
[2025-06-03] MEDS: Acetaminophen 325 MG TAB 650 MG PO (00:06)
[2025-06-03] MEDS: LORazepam 1 MG TAB PO (00:07)
--- NOTE | 2025-06-03 07:59 | HPE_ITS ---
Date of service: 06/02/25 Time of Service: 18:00 Assessment and Plan Assessment and plan (1) Hospice care patient: Status: Acute Assessment and plan: On hospice for Prostate cancer metastatic to lymph nodes, lung and widely metatstatic to bones. He is admitted today for Hospice respite. His twin brother, Emil has been lovingly caring for him at home but he is exhausted. His respite will end on Thursday 06/07, however, he may pass prior to this date. (2) Fatigue: Status: Acute Assessment and plan: Severe, r/t his cancer. He is sleeping most of the time now. He is very weak. (3) Cancer related pain: Status: Acute Assessment and plan: He is on a Hydromorphone CADD pump at 3 mg/hr with 1.5 mg bolus q 15 minutes. His pain is controlled at present. Titrate as needed. (4) Edema of lower extremity: Status: Acute Assessment and plan: Severe and multi-factorial, inguinal LAD blockage, hypoalbuminemia of cancer and he has been sitting in a chair at home with legs dependent. (5) Prostate cancer metastatic to bone: Status: Acute Assessment and plan: First diagnosed in August 2018. Re[facility] Now in latest stages. Life expectacy is in hours to days. 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 Still with some residual effects. History of Present Illness Narrative: Travis is a very pleasant 65 year old man who is on hospice for prostate cancer, metastatic to lymph nodes, lung and widely metastatic to bones. His identical twin brother, Emil is his primary caregiver at home. He was seen today at home for a routine hospice visit. He is on hydromorphone pump at 3mg/hr with 1.5 mg bolus q15min PRN. He states his pain is under control. He has been sleeping in a recliner. He has 3+ pitting edema in his legs bilaterally. He was able to get up and walk from one chair to another with 2 assist. He feels like he cannot breathe when they try to get him into the hospital bed at home, even with the HOB elevated. He is taking sips of water, he has not had anything to eat today. He slept through most of the visit but occasionally opened his eyes and answered a question. Emil is struggling with facing the loss of his twin brother. He has been caring for Travis around the clock. Discussed the option of bringng Travis into the hospital for Hospice Respite. Travis agrees with this plan. Koko agrees with whatever Travis wants to do. Review of Systems Narrative: PER [facility] PFSH All Active Problems Hospice care patient (Acute) Lymphangitis (Acute) Fatigue (Acute) Pneumonia (Acute) Cancer related pain (Acute) Edema of lower extremity (Acute) Prostate cancer metastatic to bone (Acute) Gastritis (Acute) Right leg weakness (Acute) Long toenail (Acute) Type 2 diabetes mellitus (Acute) Medication intolerance (Chronic) Physical and philosophical intolerance of medications .. Prefers no statin, despite Hx CVA. At risk of fracture due to osteoporosis (Acute) Due to prostate cancer Tx ... Listed on screening request from [facility] per pt. Vitamin D deficiency (Acute) Hypertension (Chronic) Dyslipidemia (Chronic) Prostate cancer (Chronic) Possible (+) findings, Dec 2021. Cancer free per pt report, 11/2020. Jan 2021 check in @ [facility]. 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 1 3-4-5 weeks Chondromalacia patellae of right knee (Acute) Right knee pain (Acute) Pain w/ ambulation, new fluid collection. x 1 month, with exacerbation during walk yesterday .. Encounter for rehabilitation (Acute) a. From an infarction. Elevated prostate specific antigen (PSA) (Acute 10/30/16) Right groin pain (Acute) Nocturia (Acute) Insomnia disorder related to known organic factor (Acute) Depression (Chronic) Anxiety (Chronic) Medical History Advanced care planning/counseling discussion Constipation due to opioid therapy Constipation Prediabetes Hx of colonic polyps History of prediabetes Hemiplegia affecting dominant side, post-stroke Ischemic stroke Urinary outflow obstruction H/O prostate cancer Anxiety with depression Rib pain on right side Weakness of right arm Tubular adenoma (~01/2021) Diverticula of colon Chemotherapy-induced fatigue leading to deconditioning Spasticity (02/22/15) Presumed post CVA (2013) Surgical History History of colonoscopy with polypectomy (~02/10/21) Colonoscopy - IV Sedation (10/07/15) DR.TERRY BUROGS Family History Brother Anxiety Father Diabetes Other Hypertension Social History Smoking/Tobacco Use Status: Never Smoking risk assessment performed?: Yes Alcohol Intake: current Alcohol Intake frequency: holidays/special occasions only Drug use: Never Substance use type: does not use Adopted: No Caregiver/Support person: No Foster care: No Household members: family Housing: house Do you need help understanding health information?: Rarely current occupation: Unemployed Sexually active: No Do you think of yourself as: lesbian/kc/homosexual Current gender identity: male Do you feel safe at home: Yes Do you feel safe in your relationship?: Yes Meds Allergies and Home Medications Allergies Allergy/AdvReac Type Severity Reaction Status Date / Time Penicillins Allergy Unknown Unknown Verified 05/13/25 11:03 venlafaxine HCl (From Allergy Unknown Unknown Verified 05/13/25 11:03 Effexor) latex Allergy Itching Verified 05/13/25 11:03 Home Medications ?Medication ?Instructions ?Recorded ?Confirmed ?Type food supplemt, lactose-reduced ml PO 03/30/25 05/13/25 History (Ensure oral liquid) omeprazole 20 mg capsule,delayed 20 mg PO DAILY #30 ca ps 04/29/25 05/13/25 Rx release polyethylene glycol 3350 17 17 g PO BID #119 grams 05/13/25 Rx gram/dose oral powder (Miralax) bisacodyl 10 mg rectal suppository 10 mg AK DAILY PRN PRN #12 ea 05/08/25 Rx guaifenesin 600 mg tablet, 600 mg PO BID #14 tabs 06/2505/13/25 Rx extended release 12 hr (Mucus Relief ER) prochlorperazine maleate 10 mg 5 mg (1/2 x 10 mg) PO T ID #60 tabs 05/08/25 05/13/25 Rx tablet Held on 05/18/25. Instructions: Changed by Provider sennosides 8.6 mg capsule (senna) 8.6 mg PO BID #30 ca ps 05/08/25 05/13/25 Rx Held on 05/18/25. Instructions: Changed by Provider ondansetron 8 mg disintegrating 8 mg PO Q8H PRN nausea and 05/11/25 05/13/25 Rx tablet vomiting #30 tabs lorazepam 1 mg tablet 1 mg PO Q4H PRN anxiety, [place], 05/13/25 Rx dyspnea #6 tabs morphine concentrate 100 mg/5 mL See Rx Instructions P O Q1H PRN PRN 05/13/25 Rx (20 mg/mL) oral solution pain or dyspnea #30 mL hydromorphone (PF) 10 mg/mL 2 mg (0.2 mL) subcut Q1H p ain #100 05/28/25 Rx injection solution mL mirtazapine 7.5 mg tablet 7.5 mg PO QHS #14 tabs 06/01 Rx Exam Narrative Exam Narrative: General: very pleasant, middle-aged man, lying back in recliner. He slept through most of the visit. He rarely opened his eyes and gave a brief response to a question. He is very thin/cachectic. He appears to be losing weight. HEENT: atraumatic, +temporal wasting, mm dry. Neck: supple Cardiovascular: tachycardic respiratory: respirations appear even and unlabored, wearing O2 for comfort. GI: +BS, abd soft nondistended, nontender on palpation. ext: moves all 4 extremities freely, BLEs with 3+ pitting edema. Results Last Vital Signs Temp 36.8 C 06/02/25 18:40 Pulse 122 H 06/02/25 18:40 Resp 13 06/02/25 18:40 BP 123/73 06/02/25 18:40 Pulse Ox 83 L 06/02/25 18:40 Time Spent Time spent with Patient: >75 minutes Time was spent: preparing to see the patient(eg.review tests), obtaining and/or reviewing separately otained hiistory, ordering medications,tests, procedures, referring, communicating with other health skin care instructor, counseling the patient and care coordination
[2025-06-03] MEDS: Normal Saline Flush 10 ML SYR IVP (08:41)
--- NOTE | 2025-06-03 09:15 | INITIAL_ITS ---
Date of service: 06/03/25 Time of Service: 11:12 Care Management Initial Assmt Initial Assessment Reason for Hospitalization: hospice respite Functional Status/Living Situation Patient Presentation: Travis was a direct admit from the community for hospice respite care. Travis has metastatic prostate CA and is being cared for by his twin brother at home. Travis was up in the chair when CM met with him today. Koko, Travis's twin, good friend, Jill, and 2 other gentlemen were visiting. Emil has been caring for Travis day and night, and is exhausted. Travis will stay for 5 nights, he will discharge home on 06/07/25. Town of Residence: [facility] Resides with: Other (Brother, Emil and friend, Jill) Significant Other/Family: Local Caregiver/Guardian: Semaj Natural Supports: Semaj Employment Status: Retired ([employer]) Instrumental Activities of Daily Living (ADLs): Requires support Activities/Hobbies/SocialSupport: enjoyed gardening, taking walks and doing stone work when he was healthy Physical Functioning/Mobility Assistive Device: FWW Advance Directives Advance Directives: Do you have an Advance Directive: Y 18, 09:13 AD On File at [facility]: Y 09/09/18, 09:13 Date Asked 06/02/25 06/02/25, 18:32 AD Date Reviewed 06/02/25 06/02/25, 18:32 COLST On File at [facility] No 06/02/25, 18:32 COLST Date Scanned Code Status Resuscitation Status DNR/DNI Insurance Coverage/Financial Issues Insurance: [facility] Team Visit Care Team Role Provider Type FELIX CARMEN NP Primary Care Provider NON-[facility] STAFF PHYSICIAN Cherry Ashton NP Admit Provider NURSE PRACTITIONER Attending Provider Discharge Potential Discharge Needs: Other (hospice f/u) Anticipated Barriers to Discharge: None Identified Patient/Family Education Needs: Review discharge instructions, discuss Ask Me Three Plan: Anticipate that Travis will return home with his brother at the end of his 5 night hospice respite. He will transport via EMS and continue per his plan of care with hospice. CM will continue to follow. Social Determinants of Health Screening Will the Patient Participate in the Screening?: Unable to obtain PFSH All Active Problems (Updated 05/18/25 @ 16:08 by Jennifer Bruce MD) Hospice care patient (Acute) Lymphangitis (Acute) Fatigue (Acute) Pneumonia (Acute) Cancer related pain (Acute) Edema of lower extremity (Acute) Cancer related pain (Acute) Prostate cancer metastatic to bone (Acute) Gastritis (Acute) Palliative care patient (Acute) Right leg weakness (Acute) Long toenail (Acute) Type 2 diabetes mellitus (Acute) Medication intolerance (Chronic) Physical and philosophical intolerance of medications .. Prefers no statin, despite Hx CVA. At risk of fracture due to osteoporosis (Acute) Due to prostate cancer Tx ... Listed on screening request from [facility] per pt. Vitamin D deficiency (Acute) Hypertension (Chronic) Dyslipidemia (Chronic) Prostate cancer (Chronic) Possible (+) findings, Dec 2021. Cancer free per pt report, 11/2020. Jan 2021 check in @ [facility]. 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 1 3-4-5 weeks Chondromalacia patellae of right knee (Acute) Right knee pain (Acute) Pain w/ ambulation, new fluid collection. x 1 month, with exacerbation during walk yesterday .. Encounter for rehabilitation (Acute) a. From an infarction. Elevated prostate specific antigen (PSA) (Acute 10/30/16) Right groin pain (Acute) Nocturia (Acute) Insomnia disorder related to known organic factor (Acute) Depression (Chronic) Anxiety (Chronic) Medical History Advanced care planning/counseling discussion Constipation due to opioid therapy Constipation Prediabetes Hx of colonic polyps History of prediabetes Hemiplegia affecting dominant side, post-stroke Ischemic stroke Urinary outflow obstruction H/O prostate cancer Anxiety with depression Rib pain on right side Weakness of right arm Tubular adenoma (~01/2021) Diverticula of colon Chemotherapy-induced fatigue leading to deconditioning Spasticity (02/22/15) Presumed post CVA (2013) Surgical History History of colonoscopy with polypectomy (~02/10/21) Colonoscopy - IV Sedation (10/07/15) DR.TERRY BURGOS Family History Brother Anxiety Father Diabetes Other Hypertension Social History Smoking/Tobacco Use Status: Never Smoking risk assessment performed?: Yes Alcohol Intake: current Alcohol Intake frequency: holidays/special occasions only Drug use: Never Substance use type: does not use Adopted: No Caregiver/Support person: No Foster care: No Household members: family Housing: house Do you need help understanding health information?: Rarely current occupation: Unemployed Sexually active: No Do you think of yourself as: lesbian/kc/homosexual Current gender identity: male Do you feel safe at home: Yes Do you feel safe in your relationship?: Yes Readmission Within the Past 30 Days Yes or No: Yes Date of First Admission Date of 1st Admission: 05/07/25 Date of this Admission Date of Admission: 06/02/25 This admission was: Direct Admit Office Visit Since 1st Admission Have you seen your PCP in the office since discharge?: Yes Date of PCP Appointment: admitted to hospice since last admission If the patient had a VNA ordered Did the patient have a VNA order?: Yes Did you call the VNA before you came?: Yes Did the VNA tell you to come to the hospital?: Yes If the patient had home care service Call them to discuss the patient's admission: Travis was admitted for caregiver respite. He is on hospice. ED visits How many ED visits in the past 12 months: 6
--- NOTE | 2025-06-03 16:00 | CHAPLAIN ---
Travis was a direct admit last night for hospice respite care. He's twin brother, Koko, is his caregiver. Travis appears very week today and Dr. Bruce told him he likely had hours to days to live at this point. Two friends have spent much of the day with Travis and Koko. I encouraged Koko to spend some time alone with Travis. He said he hasn't been able yet to tell Travis that he'll be okay after Travis dies. Travis indicated to Dr. Bruce that he has spoken with everyone that he wants to speak with and his family members visited recently and he didn't feel the need to see them again. Continua, the hospice choir has arrived to sing for Travis.
--- NOTE | 2025-06-03 17:07 | PGE_ITS ---
Date of Service Date of service: 06/03/25 Time of Service: 13:00 Assessment and Plan Assessment and plan (1) Hospice care patient: Status: Acute Assessment and plan: On hospice for respite. Brother Koko primary caregiver is exhausted. Travis needs help with all adls, including feeding. Can stand and pivot with support, but not for long. Koko asked if he could sleep in same bed with Travis. As long as Travis wants this, yes. Will use rails to prevent falling out of bed. (2) Lymphangitis: Status: Acute Assessment and plan: Part of his severe LE edema. (3) Fatigue: Status: Acute Assessment and plan: Severe. Cancer related. Everything is an effort--talking, eating, sitting up, standing up. Mostly just lies completely still (4) Cancer related pain: Status: Acute Assessment and plan: Hydromorphone CADD pump is working well. He is on 3 mg/hr with 1.5 mg bolus q 15. He still has on the pump from hospice. I gave him one bolus when i was with him. This morning, however, prior to my visit he did have more pain. Koko worried. Travis was comfortable during my visit with him. (5) Edema of lower extremity: Status: Acute Assessment and plan: multi-factorial, inguinal LAD blockage, hypoalbuminemia of cancer (6) Prostate cancer metastatic to bone: Status: Acute Assessment and plan: First diagnosed in August 2018. Received treatment from [facility] and [facility]. Now in latest stages. Life expectacy is in hours to days. 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 Still with some residual effects. Subjective Subjective Patient reports: still having pain, shortness of breath and other (profound weakness and fatigue); denies feels better or tolerating a regular diet Interval history since last seen: left heel hurts, stage 1 pressure ulcer, Exam Narrative Exam Narrative: Travis is a 65 yo man dying from metastatic prostate cancer. He is admitted on hospice respite. His identical twin brother, Koko, needed a break. Koko spent the night with Travis last night, but Koko reported it was so much easier just being his brother rather than hands-on caregiver---though Koko did help Travis to stand up to urinate at the end of my visit. Travis appears weak, exhausted, cachectic VS HR in the 120s-130s, RR 20-22 eyes sunken heent mm are dry but not parched neck no lad or jvd cv heart is tachycardic but regular, no murmur noted lungs crackles at bilateral bases, no cheynes-silver breathing, no apnea abd slender + bs wnl no masses noted gu circumcised male, no swanson in place, + inguinal LAD ext 3-4+ edema, non pitting neuro exhausted but able to answer questions, skin stage 1 pressure ulcer left heel, slightly boggy Objective Last Vital Signs Temp 98.2 F 06/02/25 18:40 Pulse 122 H 06/02/25 18:40 Resp 13 06/02/25 18:40 BP 123/73 06/02/25 18:40 Pulse Ox 83 L 06/02/25 18:40 Time Spent with Patient Time Spent with Patient: 35-49 minutes Time was spent: preparing to see the patient(eg.review tests), referring, communicating with other health inpatient care manager rn and counseling the patient
--- NOTE | 2025-06-03 17:20 | W.NUTRFU ---
Date of service: 06/03/25 Time of Service: 17:20 Nutrition Note NOTE: Hernandez is current hospice care patient admitted for respite care until 06/07/25. Hx of DMII with no current diabetes meds and glucose hx seems to be consistently <180 - will keep diet order unchanged as it allows for more variety of food choices and there is no clinical advantage to consistent carb diet at this time. No known food allergies. Pt ordered for regular diet and visitor made aware of guest tray options when visiting. No aggressive nutrition intervention planned at this time. Will monitor and check in with pt and family to assess any nutrition/dietary needs Hernandez may have before discharge next week Time Spent in Nutritional Counseling and Treatment: 5 min
--- NOTE | 2025-06-03 17:25 | W.PC.ACHO ---
Registration Status: ADM IN Primary Language: Preferred Language: Ukrainian Medical / Surgical History (Last Reviewed 06/03/25 @ 17:20 by Cherry Ashton NP) Advanced care planning/counseling discussion Constipation due to opioid therapy Constipation Prediabetes Hx of colonic polyps History of prediabetes Hemiplegia affecting dominant side, post-stroke Ischemic stroke Urinary outflow obstruction H/O prostate cancer Anxiety with depression Rib pain on right side Weakness of right arm Tubular adenoma (~01/2021) Diverticula of colon Chemotherapy-induced fatigue Spasticity (02/22/15) (Last Reviewed 06/03/25 @ 17:20 by Cherry Ashton NP) History of colonoscopy with polypectomy (~02/10/21) Colonoscopy - IV Sedation (10/07/15) Most Recent Vital Signs Temperature 36.8 C 06/02/25 18:40 Pulse 122 H 06/02/25 18:40 Pulse Rhythm Regular 06/02/25 18:40 Respiratory Rate 13 06/02/25 18:40 Respiratory Effort Non-Labored 06/02/25 18:40 Respiratory Depth Shallow 06/02/25 18:40 Respiratory Pattern Tachypnea 06/02/25 18:40 Blood Pressure 123/73 06/02/25 18:40 Pulse Oximetry 83 L 06/02/25 18:40 Oxygen Delivery Method Nasal Cannula 06/02/25 18:40 Oxygen Flow Rate 3 06/02/25 18:40 Pain Level 8 06/03/25 00:53 Allergies Penicillins Allergy (Unknown, Verified 05/13/25 11:03) Unknown venlafaxine HCl (From Effexor) Allergy (Unknown, Verified 05/13/25 11:03) Unknown latex Allergy (Verified 05/13/25 11:03) Itching Active Medications Generic Name Dose Route Start Last Admin Trade Name Freq PRN Reason Stop Dose Admin Acetaminophen 650 mg 06/02/25 18:10 06/03/25 00:06 Acetaminophen 325 Mg Tab PO 650 mg Q4H PRN PRN Administration Hydromorphone HCl 1,000 mg/ 100 mls @ 0.45 mls/hr 06/02/25 18:30 06/03/25 14:12 Device SC_INF 4.5 mg/hr INFUSION PALMER 0.45 mls/hr Protocol Administration 4.5 MG/HR Lorazepam 1 - 2 mg 06/02/25 18:16 06/03/25 00:07 Lorazepam 1 Mg Tab PO 2 mg Q1H PRN PRN Administration Anxiety Sodium Chloride 0 ml 06/02/25 20:00 06/03/25 08:41 Normal Saline Flush 10 Ml Syr IVP 10 ml BID PALMER Administration Intake and Output - 24 Hour Total 06/02/25 thru 06/03/25 00:53 Intake Total 200 Balance 200 Intake: Oral 200 Other: Comment up to bathroom with brother Falls Risk Assessment History of Falls Previous History 06/02/25 18:40 Contributing Factors Unstable,Impairments, 06/02/25 18:40 Incontinence,Medications Ambulatory Aids Uses ambulatory device 06/02/25 18:40 Tubes/Lines With any additional score 06/02/25 18:40 Gait Evaluation W/any additional score 06/02/25 18:40 Fall Total Score 82 06/02/25 18:40 Level of Risk Maximum Risk 06/02/25 18:40 Problems (Last Reviewed 06/03/25 @ 17:20 by Cherry Ashton, NURSE PRACTITIONER HOME ASSESSMENTS) Hospice care patient (Acute) Lymphangitis (Acute) Fatigue (Acute) Cancer related pain (Acute) Edema of lower extremity (Acute) Prostate cancer metastatic to bone (Acute) Prostate cancer (Chronic) 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 Information / Comments: Report received from: Received report for direct admit from Cherry Ashton 06/02/25 evening. Ambulance transport for respite
[2025-06-03 22:57] VITALS: BP 123/73; PULSE 122; RESP 13; TEMP 36.8; O2SAT 83
[2025-06-03 23:04] VITALS: BP 123/73; PULSE 122; RESP 13; TEMP 36.8; O2SAT 83
[2025-06-04] MEDS: Hyoscyamine 0.125 MG SL/ORAL/CHEW SL (01:11)
[2025-06-04 06:57] VITALS: BP 123/73; PULSE 122; RESP 13; TEMP 36.8; O2SAT 83
[2025-06-04] MEDS: LORazepam 1 MG TAB PO ×3 (08:41→20:25)
[2025-06-04] MEDS: Acetaminophen 325 MG TAB 650 MG PO (08:41)
[2025-06-04] MEDS: MORPHine Oral Solution 10 MG/5 ML CUP PO ×2 (09:03→14:29)
--- NOTE | 2025-06-04 09:19 | PGE_ITS ---
Date of Service Date of service: 06/04/25 Time of Service: 08:30 Assessment and Plan Assessment and plan (1) Hospice care patient: Status: Acute Assessment and plan: Continue respite care. Travis is supposed to be discharged home on Sunday 06/03, if he is still with us. He has required aggressive pain control while here. He has required other regular interventions--swanson catheter and scheduled lorazepam. He may need to be changed to symptom management. Will discuss with hospice team. (2) Fatigue: Status: Acute Assessment and plan: Exhausted from his disease and from pain not allowing him to sleep. (3) Anxiety: Status: Chronic Assessment and plan: Started on scheduled lorazepam 1 mg q 4 hrs. may refuse med still have iv ativan ordered prn q 1 hr if his anxiety is not controlled with scheduled po dose q 4 though he denies fear of dying, it appears to be related (4) Cancer related pain: Status: Acute Assessment and plan: Rapid aggressive titration up overnight in his pain medication. Reviewed [facility] orders. He may continue to be titrated up to a dose of 40 mg/hr. Currently at 10.5 mg/hr. Goal is patient comfort. (5) Prostate cancer metastatic to bone: Status: Acute Assessment and plan: Cause of his pain. Subjective Subjective Patient reports: still having pain and shortness of breath; denies feels better or tolerating a regular diet Interval history since last seen: Travis has a rough night. He needed a catheter placed for urinary retention. He had about 300 ccs out when it was placed. He was very anxious this am and needed lorazepam. He was dyspneic and panicking. Overnight, his pain increased significantly. He was at 4.5 mg/hr per continuous pain pump. Overnight, his dose was increased incrementally from 4.5 to 6.5 to 8.5 to 10.5 mg an hour. His brother Koko slept at home last night. He was there when I arrived and looked much more rested. Friend Jessica arrived too. Exam Narrative Exam Narrative: Cachectic, dyspneic at first, in moderate distress until his lorazepam kicked in Eyes anicteric HEENT hearing intact mmm neck no lad or jvd lungs ctab in anterior beck. tachypenic to the high 20s cv tachycardic, was at 150 bpm down to 120s after lorazepam abd soft, NT, +bs wnl ext still edematous but improved neuro confused more, recognized Koko psych was very anxious just before my arrival, calmed down during my visit Objective Last Vital Signs Temp 98.2 F 06/04/25 06:57 Pulse 122 H 06/04/25 06:57 Resp 13 06/04/25 06:57 BP 123/73 06/04/25 06:57 Pulse Ox 83 L 06/04/25 06:57 Time Spent with Patient Time Spent with Patient: 35-49 minutes Time was spent: preparing to see the patient(eg.review tests), ordering medications,tests, procedures, referring, communicating with other health child care assistant, counseling the patient and care coordination
--- NOTE | 2025-06-04 13:20 | CHAPLAIN ---
This morning when I visited, Travis was up the chair and his friend Jill was rubbing his ankles that had become very swollen. His brother Koko spent the night at home and came in this morning. Travis's sister is also visiting today. Jill was trying to locate someone to offer Travis Reddy today. Our Barry volunteer currently has COVID.
[2025-06-05] MEDS: LORazepam 1 MG TAB PO ×6 (00:37→23:29)
[2025-06-05] MEDS: MORPHine Oral Solution 10 MG/5 ML CUP PO ×5 (01:10→23:28)
[2025-06-05] MEDS: Hyoscyamine 0.125 MG SL/ORAL/CHEW SL ×2 (18:52→22:57)
[2025-06-05] MEDS: Scopolamine 1 MG/3 DAYS PATCH TD (22:57)
[2025-06-06] MEDS: Atropine 1% Ophth Sol. 2 ML BTL SL (00:04)
[2025-06-06] MEDS: MORPHine Oral Solution 10 MG/5 ML CUP PO (01:15)
--- NOTE | 2025-06-06 12:15 | EXPE_ITS ---
Date of service: 06/06/25 Time of Service: 01:49 Discharge Plan Disposition Patient Disposition: Discharge Details Reason For Visit: HOSPICE Admit Date/Time: 06/02/25 18:23 Admit Provider: Cherry Ashton Attending Provider: Cherry Ashton Primary Care Provider: FELIX CARMEN Hospital Course Hospital Course: Travis was admitted to [facility] for hospice respite on 06/02/25. He was on hospice for metastatic prostate cancer. His twin brother was caring for him at home and needed a break. He came into the hospital for his respite stay with a hydromorphone pump. The infusion rate was titrated for pain control during his stay. He was eating very little prior to the respite stay but did not have any PO intake for the last 2 days. At the time of his admission, his life expectancy was measured in hours to days. He became less responsive and on 06/06/25 at 01:49. Discharge Data Discharge Date/Time-TO BE ENTERED AT DEPARTURE: 06/06/25 01:49 Discharge Sum: Prov Provider Consults: 06/02/25 18:17 Probation Supervisor Consult [CONS] Routine Consultation Status:: Follow-up needed Clarification:: Manage/follow per spec. Reason for consult:: hospice, EOL care Discharge Sum: Diag Contributing Factors (1) Hospice care patient: (2) Fatigue: (3) Anxiety: (4) Cancer related pain: (5) Prostate cancer metastatic to bone: Discharge Sum: Summary Summary Details: Travis was admitted to [facility] for hospice respite on 06/02/25. He was on hospice for metastatic prostate cancer. His twin brother was caring for him at home and needed a break. He came into the hospital for his respite stay with a hydromorphone pump. The infusion rate was titrated for pain control during his stay. He was eating very little prior to the respite stay but did not have any PO intake for the last 2 days. At the time of his admission, his life expectancy was measured in hours to days. He became less responsive and on 06/06/25 at 01:49.
== END 2025-06-06 01:49 | disposition expired | DRG 723 ==
PROVIDERS: Admitting Provider Nurse Practitioner; PCP Nurse Practitioner Family; Visit Provider Nurse Practitioner
DX: C61 Malignant neoplasm of prostate (principal); C77.5 Secondary and unspecified malignant neoplasm of intrapelvic lymph nodes; C79.51 Secondary malignant neoplasm of bone; C78.00 Secondary malignant neoplasm of unspecified lung; I69.351 Hemiplegia and hemiparesis following cerebral infarction affecting right dominant side; G89.3 Neoplasm related pain (acute) (chronic); Z51.5 Encounter for palliative care; I89.1 Lymphangitis; R60.0 Localized edema; R53.83 Other fatigue; F41.9 Anxiety disorder, unspecified; Z79.891 Long term (current) use of opiate analgesic; I10 Essential (primary) hypertension; E78.5 Hyperlipidemia, unspecified; E55.9 Vitamin D deficiency, unspecified; F32.A Depression, unspecified; R35.1 Nocturia; G47.09 Other insomnia; R73.03 Prediabetes; T45.1X5A Adverse effect of antineoplastic and immunosuppressive drugs, initial encounter
CPT/HCPCS: 00123; J1171; J3490